=== PATIENT | female | born 1945 | race Caucasian/White ===

== ENCOUNTER 2020-01-08 11:20 | Outpatient (CLI) | payer MEDICARE, SELFPAY ==
--- NOTE | ~2020-01-08 | MMUS_ITS ---
EXAMINATION: MM screen RT diag LT w mauro, US breast LT limited HISTORY: Palpable left breast mass TECHNIQUE: Digital screening right mammogram. Additional 3-D tomosynthesis images of the left breast were performed and synthetic 2-D images were generated. CAD analysis was submitted and interpreted. H igh resolution left breast ultrasound was performed. COMPARISON: Comparison to multiple prior studies sequentially, with oldest reviewed study dated 12/03. FINDINGS: MAMMOGRAPHIC FINDINGS: Breast composed of scattered areas of fibroglandular density. There are no suspicious masses, calcifi cations or architectural distortion to suggest malignancy. ULTRASOUND: Normal heterogeneous echotexture of the left breast without focal solid or cystic mass. IMPRESSION: 1. No mammographic or sonographic evidence for malignancy. 2. Routine yearly screening mammogram and regular clinical breast examination are recommended. BI-RADS Category 1: Negative Reviewed, dictated and finalized at location A. CH ENGINE OPTIMIZATION CONSULTANT IMPRESSION: 1. No mammographic or sonographic evidence for malignancy. 2. Routine yearly screening mammogram and regular clinical breast examination a re recommended. BI-RADS Category 1: Negative
== END 2020-01-08 11:21 | disposition home or self-care (01) ==
PROVIDERS: PCP Internal Medicine; Visit Provider Nurse Practitioner Family
DX: Z12.31 Encounter for screening mammogram for malignant neoplasm of breast (principal); N63.42 Unspecified lump in left breast, subareolar
CPT/HCPCS: 76642; 77063; 77065; 77067

== ENCOUNTER 2020-01-09 17:04 | Outpatient (CLI) | payer MEDICARE, SELFPAY ==
[2020-01-09 17:16] LABS: Basophils Absolute Auto 0.02 K/mm3 (0.00-0.10); Basophils Percent Auto 0.3 % (0.0-1.0); Eosinophils Absolute Auto 0.09 K/mm3 (0.02-0.50); Eosinophils Percent Auto 1.3 % (1.0-6.0); Hematocrit 43.4 % (35.0-42.0); Hemoglobin 14.4 g/dL (11.7-13.8); Immature Granulocyte Absolute 0.02 K/mm3 (0.00-0.00); Immature Granulocyte Percent A 0.3 % (0.0-0.0); Lymphocytes Absolute Auto 2.57 K/mm3 (1.10-4.50); Lymphocytes Percent Auto 37.4 % (18.0-42.0); Mean Corpuscular HGB Conc 33.2 g/dL (32.0-36.0); Mean Corpuscular Hemoglobin 32.2 pg (27.0-31.0); Mean Corpuscular Volume 97.1 fL (78.0-102.0); Mean Platelet Volume 10.2 fl (9.2-11.8); Monocytes Absolute Auto 0.57 K/mm3 (0.10-0.90); Monocytes Percent Auto 8.3 % (2.0-11.0); Neutrophils Absolute Auto 3.6 K/mm3 (1.7-7.2); Neutrophils Percent Auto 52.4 % (50.0-70.0); Platelet Count Result 301 K/mm3 (150-420); Red Blood Count 4.47 M/mm3 (4.20-5.40); Red Cell Distribution Width 12.7 % (11.6-14.4); White Blood Count 6.9 K/mm3 (4.8-10.8)
[2020-01-09 17:55] LABS: Alanine Aminotransferase 24 U/L (14-59); Albumin Level 3.9 g/dL (3.4-5.0); Alkaline Phosphatase 76 U/L (46-116); Amylase 42 U/L (25-115); Anion Gap 14.6 mmol/L (7-16); Aspartate Amino Transferase 15 U/L (15-37); Bilirubin,Total 0.2 mg/dL (0.00-1.00); Blood Urea Nitrogen 16 mg/dL (7-18); Calcium 9.2 mg/dL (8.5-10.1); Carbon Dioxide 29 mmol/L (21-32); Chloride 105 mmol/L (98-108); Estimated Glomerular Filt Rate 58; Glucose 99 mg/dL (70-99); Lipase 108 U/L (73-393); Osmolality Calculated 299 mOsm/kg (285-295); Potassium 4.6 mmol/L (3.5-5.1); Sodium 144 mmol/L (136-145); Total Protein 7.3 g/dL (6.4-8.2)
== END 2020-01-09 17:05 | disposition home or self-care (01) ==
PROVIDERS: PCP Internal Medicine; Visit Provider Internal Medicine
DX: R10.13 Epigastric pain (principal)
CPT/HCPCS: 36415; 80053; 82150; 83690; 85025

== ENCOUNTER 2020-01-14 07:48 | Outpatient (CLI) | payer MEDICARE, SELFPAY ==
--- NOTE | ~2020-01-14 | US_ITS ---
US right upper quadrant INDICATION: Right upper quadrant pain. Previous cholecystectomy. PROCEDURE: Realtime right upper abdominal ultrasound. COMPARISON: CT dated 06/07/2013 FINDINGS: Evaluation of pancreas limited by bowel gas. No gross pancreatic masses. Liver echotexture is increased and heterogeneous consistent with fatty infiltration. No discrete mass identified. No s ignificant biliary dilatation. There is normal directional flow in the portal vein. Gallbladder is surgically absent. Common bile duct measures 6 mm. IMPRESSION: 1: Hepatic steatosis. Reviewed, dictated and finalized at location B. R OPERATOR IMPRESSION: 1: Hepatic steatosis.
== END 2020-01-14 07:49 | disposition home or self-care (01) ==
PROVIDERS: PCP Internal Medicine; Visit Provider Internal Medicine
DX: R10.11 Right upper quadrant pain (principal)
CPT/HCPCS: 76705

== ENCOUNTER 2020-04-08 07:42 | Outpatient (CLI) | payer MEDICARE, SELFPAY ==
[2020-04-08 07:56] LABS: Basophils Absolute Auto 0.03 K/mm3 (0.00-0.10); Basophils Percent Auto 0.5 % (0.0-1.0); Eosinophils Absolute Auto 0.12 K/mm3 (0.02-0.50); Eosinophils Percent Auto 2.1 % (1.0-6.0); Hemoglobin 13.6 g/dL (11.7-13.8); Immature Granulocyte Absolute 0.01 K/mm3 (0.00-0.00); Immature Granulocyte Percent A 0.2 % (0.0-0.0); Lymphocytes Absolute Auto 1.93 K/mm3 (1.10-4.50); Lymphocytes Percent Auto 33.7 % (18.0-42.0); Mean Corpuscular HGB Conc 32.4 g/dL (32.0-36.0); Mean Corpuscular Hemoglobin 31.7 pg (27.0-31.0); Mean Corpuscular Volume 97.9 fL (78.0-102.0); Monocytes Absolute Auto 0.49 K/mm3 (0.10-0.90); Monocytes Percent Auto 8.6 % (2.0-11.0); Neutrophils Absolute Auto 3.1 K/mm3 (1.7-7.2); Neutrophils Percent Auto 54.9 % (50.0-70.0); Platelet Count Result 289 K/mm3 (150-420); Red Blood Count 4.29 M/mm3 (4.20-5.40); Red Cell Distribution Width 12.5 % (11.6-14.4); White Blood Count 5.7 K/mm3 (4.8-10.8)
[2020-04-08 07:57] LABS: Add Urine Microscopic? YES; Appearance Urine Clear (Clear); Bilirubin Urine Negative (Negative); Blood Urine Negative (Negative); Color Urine Yellow (Yellow); Glucose Urine UA Negative (Negative); Ketones Urine Negative (Negative); Leukocyte Esterase Ur Trace (Negative); Nitrate Urine Negative (Negative); Protein Urine Negative (Negative); Specific Grav Ur 1.015 (1.010-1.020); Urobilinogen Urine 0.2 mg/dL (0.2-1.0)
[2020-04-08 08:05] LABS: Hemoglobin A1C 5.4 % (<5.7)
[2020-04-08 08:11] LABS: Creatinine Urine 50.05 mg/dL (40-278); MALB Creatinine Ratio 8.3 mg/g (0-30); Microalbumin Urine Random 4.2 mg/L
[2020-04-08 08:22] LABS: Bacteria Urine Trace /hpf; RBC Urine 0-2 /hpf (0-2); Squamous Epithelial Cell Urine Moderate /hpf (Few); WBC Urine 0-3 /hpf (0-3)
[2020-04-08 09:07] LABS: Alanine Aminotransferase 22 U/L (14-59); Albumin Level 3.4 g/dL (3.4-5.0); Alkaline Phosphatase 58 U/L (46-116); Anion Gap 11.2 mmol/L (7-16); Aspartate Amino Transferase 17 U/L (15-37); Bilirubin,Total 0.3 mg/dL (0.00-1.00); Blood Urea Nitrogen 15 mg/dL (7-18); Calcium 8.8 mg/dL (8.5-10.1); Carbon Dioxide 32 mmol/L (21-32); Chloride 105 mmol/L (98-108); Cholesterol 161 mg/dL (0-200); Creatine Kinase 75 U/L (26-192); Estimated Glomerular Filt Rate > 60; Free T3 2.32 pg/mL (2.18-3.98); Free T4 Free Thyroxine 1.24 ng/dL (0.76-1.46); Glucose 86 mg/dL (70-99); HDL Direct 63 mg/dL (40-60); LDL Cholesterol Calculated 79 mg/dL (<130); Osmolality Calculated 297 mOsm/kg (285-295); Potassium 4.2 mmol/L (3.5-5.1); Sodium 144 mmol/L (136-145); Thyroid Stimulating Hormone 1.42 uIU/mL (0.36-3.74); Total Protein 6.5 g/dL (6.4-8.2); Triglycerides 96 mg/dL (0-150)
[2020-04-09 16:02] LABS: Vitamin B12 189 pg/mL (193-986)
[2020-04-12 10:27] LABS: Vitamin D 25 Hydroxy 35 ng/mL (30-100)
== END 2020-04-08 07:43 | disposition home or self-care (01) ==
PROVIDERS: PCP Internal Medicine; Visit Provider Internal Medicine
DX: E78.2 Mixed hyperlipidemia (principal); E03.4 Atrophy of thyroid (acquired); I10 Essential (primary) hypertension; M81.0 Age-related osteoporosis without current pathological fracture; R73.01 Impaired fasting glucose; E53.8 Deficiency of other specified B group vitamins
CPT/HCPCS: 36415; 80053; 80061; 81001; 82043; 82306; 82550; 82607; 83036; 84439; 84443; 84481; 85025

== ENCOUNTER 2020-04-09 11:07 | Outpatient (RCR) | payer MEDICARE, SELFPAY ==
--- NOTE | 2020-04-09 11:39 | PTOPEVAL ---
Thank you for referring Betzy Juarez to [facility]. Please review, sign, date and return this plan of care VERN. I agree with and certify that the following plan of care is medically necessary. Referring Physician Date Admitting Provider: Attending Provider: Janeth Viramontes MD Referring Provider: *PT Outpatient Evaluation Start: 04/09/20 11:08 Freq: Status: Active Protocol: Document 04/09/20 11:08 ESTEBAN (Rec: 04/09/20 11:38 ESTEBAN [id number]) Therapy Assessment Status Assessment Status Assessment Status Evaluation Evaluation Information Problem Diagnosis imbalance, unsteady gait, fall Onset 04/08/20 Subjective Information Pt. reports that she has been Query Text:As Reported By Patient/ falling frequently over the Family past few months. She reports that when getting out of a chair or bending forward causes her to fall. She reports that she is using no AD at home. She reports that she enjoys gardening, but states that she fell in her garden yesterday while attempting to bend forward. She reports that her goal is to be able to stand or bend over and not feel that she will fall. Prior Level of Function Activity Level (Last 3 Months) Occupation retired Hand Dominance Right Activity of Daily Living Ability Independent Indoor/Home Mobility Independent Community Mobility Independent Stairs Ability Independent Functional Cognition (Planning, Shopping Independent , Taking Medications) Cooking Yes Cleaning Yes Laundry Yes Shopping Yes Driving Yes Pain Assessment Self Report Self Report Pain Level 0 Pain Score Pain Score 0: Self Report Lower Extremity Muscle Strength Testing General Lower Extremity Strength Gross Lower Extremity Strength bilateral hip flexion 4/5, bilateral hip extension 4-/5, bilateral knee flexion 4/5, bilateral knee extension 4+/5, bilateral ankle dorsiflexion 4+/5 Balance Assessment Tinetti Balance Assessment Sitting Balance Steady, safe Ability to Arise
[2020-04-12 17:52] LABS: Intrinsic Factor Blocking Ab Negative (Negative)
[2020-04-12 19:44] LABS: Homocysteine 9.1 umol/L (<10.4)
[2020-04-16 23:34] LABS: Methylmalonic Acid 282 nmol/L (87-318)
== END 2020-07-08 23:59 | disposition home or self-care (01) ==
LOC: CHSPT 11:07
PROVIDERS: PCP Internal Medicine; Visit Provider Internal Medicine
DX: R26.81 Unsteadiness on feet (principal); E53.8 Deficiency of other specified B group vitamins
CPT/HCPCS: 36415; 83090; 83921; 86340; 97110; 97112; 97161

== ENCOUNTER 2020-04-12 09:25 | Outpatient (CLI) | payer MEDICARE, SELFPAY ==
--- NOTE | ~2020-04-12 | MR_ITS ---
EXAMINATION: MR brain/brain stem wo con DATE: 04/12/2020 10:37 INDICATION: Dizziness. TECHNIQUE: Magnetic resonance imaging (MRI) of the brain and brainstem was performed without intraven ous contrast. Sequences included sagittal and axial T1-weighted FSE, axial diffusion-weighted FS EPI, axial T2*-weighted GRE, axial T2-weighted FLAIR Propeller, axial T2-weighted Propeller, small field- of-view coronal FIESTA, small [id number] coronal T1-weighted FSE, and small [id number] axial T1 -weighted SPGR. Apparent diffusion coefficient (ADC) maps were created. COMPARISON: Brain MRI 10/06/2016 FINDINGS: There is no intracranial hemorrhage, acute infarction, or abnormal intracranial mass lesion . The ventricles are normal in size. There are likely changes of ocular lens replacement surgeries. T he paranasal sinuses are clear. The mastoid air cells are normal. IMPRESSION: 1. Normal brain. Reviewed, dictated and finalized at location A. IMPRESSION: 1. Normal brain.
== END 2020-04-12 09:26 | disposition home or self-care (01) ==
LOC: CHSIMG 09:28
PROVIDERS: PCP Internal Medicine; Visit Provider Internal Medicine
DX: R42 Dizziness and giddiness (principal)
CPT/HCPCS: 70551

== ENCOUNTER 2020-05-09 16:21 | Emergency (ER) | payer MEDICARE, SELFPAY ==
--- NOTE | ~2020-05-09 | XR_ITS ---
XR foot LT min 3V DATE: 05/09/2020 16:56 INDICATION: Heavy object fell on foot; anterior arch pain TECHNIQUE: 4 views COMPARISON: None FINDINGS: There is mild plantar calcaneal enthesopathy. Diffuse osteopenia. No fracture, dislocation, periosteal reaction or bone destruction is detected. IMPRESSION: No detectable fracture or dislocation Reviewed, dictated and finalized at location A.
--- NOTE | ~2020-05-09 | CT_ITS ---
EXAMINATION: CT foot LT wo con DATE: 05/09/2020 17:57 INDICATION: Left foot pain TECHNIQUE: Computed tomography (CT) of the left foot was performed without intravenous contrast. The dose-length product (DLP) was 903.13 mGy-cm. Automated exposure control and iterative reconstruction technique were employed. COMPARISON: None FINDINGS: There is no fracture, dislocation, or subluxation. There is mild polyarticular osteoarthrit is, worst at the calcaneal cuboid joint. Bone alignment is normal. There is mild dorsal soft tissue s welling of the foot. IMPRESSION: 1. No acute osseous abnormality. Reviewed, dictated and finalized at location A.
[2020-05-09 16:25] VITALS: BP 128/78; PULSE 73; RESP 18; TEMP 36.4; O2SAT 98
--- NOTE | 2020-05-09 16:45 | ED.LOWEXIN ---
HPI - Extremity Injury (Lower) General Chief Complaint: Extremity Injury, Lower Stated Complaint: l foot pain Time Seen by Provider: 05/09/20 16:45 Source: patient Mode of arrival: ambulatory Limitations: no limitations History of Present Illness HPI Narrative: 74-year-old woman comes in today complaining of right midfoot pain on the dorsal aspect that started this morning after she dropped a 2 x 12 on it. She states that she has partial weight-bearing and painful weight-bearing. She denies any numbness or tingling or prior foot injuries. MD complaint: foot injury Onset (ago): hour(s) (6) Injury: Left: foot Type of Injury: blunt Place: home Severity: moderate Relieving factors: rest Exacerbating factors: weight bearing, movement and palpation Associated symptoms: swelling and able to partially bear weight Treatments prior to arrival: cold therapy and other ( Elevation) Related Data Home Medications Medication Instructions Recorded Confirmed amlodipine 10 mg tablet 10 mg PO DAILY 10/26/19 05/09/20 aspirin 81 mg tablet,delayed 81 mg PO DAILY 10/26/19 05/09/20 release atenolol 25 mg tablet 12.5 mg PO DAILY 10/26/19 05/09/20 calcium carbonate 600 mg calcium 600 mg PO DAILY 10/26/19 05/09/20 (1,500 mg) tablet famotidine 20 mg tablet 20 mg PO DAILY 10/26/19 05/09/20 fluticasone propionate 50 2 inhalation INHALATION Q12H 10/26/19 05/09/20 mcg/actuation blister powder for inhalation furosemide 40 mg tablet 40 mg PO DAILY 10/26/19 05/09/20 ipratropium bromide 42 mcg (0.06 2 spray NASAL TID 10/26/19 05/09/20 %) nasal spray isosorbide mononitrate 60 mg 90 mg PO DAILY 10/26/19 05/09/20 tablet,extended release 24 hr levothyroxine 200 mcg tablet 200 mcg PO DAILY 10/26/19 05/09/20 lisinopril 10 mg tablet 10 mg PO DAILY 10/26/19 05/09/20 pantoprazole 40 mg tablet,delayed 40 mg PO QAM 10/26/19 05/09/20 release paroxetine HCl 20 mg tablet 40 mg PO DAILY 10/26/19 05/09/20 pravastatin 40 mg tablet 40 mg PO DAILY 10/26/19 05/09/20 ranolazine 1,000 mg 1,000 mg PO Q12H 10/26/19 05/09/20 tablet,extended release,12 hr tramadol 50 mg tablet 50 mg PO Q6H PRN 10/26/19 05/09/20 Allergies Allergy/AdvReac Type Severity Reaction Status Date / Time bacitracin Allergy Intermediate RASH Verified 05/09/20 16:56 adhesive tape Allergy Mild rash Verified 05/09/20 16:57 latex Allergy Mild RASH WITH Verified 05/09/20 16:57 BLISTERS neomycin Allergy Numbness Verified 05/09/20 16:57 [From Neosporin ([id number])] polymyxin B Allergy Numbness Verified 05/09/20 16:57 [From Neosporin ([id number])] Review of Systems Constitutional: Constitutional: Denies chills and Denies fever(s) Cardiovascular: Cardiovascular: Denies chest pain and Denies radiating jaw, neck or arm pain Respiratory: Respiratory: Denies cough and Denies dyspnea Gastrointestinal: Gastrointestinal: Denies abdominal pain, Denies nausea and Denies vomiting Musculoskeletal: Musculoskeletal: Reports as per HPI, Reports arthralgias and Reports joint swelling Integumentary/Breasts: Skin/Breast: Denies pruritus, Denies rash and Denies skin ulcer Neurologic: Denies vertigo, Denies dizziness and Denies syncope Hematologic/Lymphatic: Hematologic/Lymphatic: Denies easy bleeding and Denies easy bruising Allergic/Immunologic: Allergic/Immunologic: Denies lip swelling and Denies wheezing [facility] Past Medical History Medical History (Updated 05/09/20 @ 18:31 by Gaudencio Chauhan MD) Angina pectoris GERD (gastroesophageal reflux disease) High cholesterol HTN (hypertension) Thyroid disease Surgical History Surgical History H/O colonoscopy H/O total hysterectomy History of back surgery History of cataract surgery History of ERCP History of total knee replacement Hx laparoscopic cholecystectomy Social History Social History
[2020-05-09 18:37] VITALS: BP 139/82; PULSE 72; RESP 18; O2SAT 98
== END 2020-05-09 18:38 | disposition home or self-care (01) ==
PROVIDERS: Emergency Provider Emergency Medicine; PCP Internal Medicine
DX: S90.32XA Contusion of left foot, initial encounter (principal); W22.8XXA Striking against or struck by other objects, initial encounter
CPT/HCPCS: 73630; 73700; 99282; 99284

== ENCOUNTER 2020-05-19 15:38 | Outpatient (CLI) | payer MEDICARE, SELFPAY ==
--- NOTE | ~2020-05-19 | XR_ITS ---
XR knee RT min 4V 05/19/2020 16:41 Indication: Right knee pain Procedure: 4 views right knee Comparison: Comparison to multiple prior studies sequentially, with oldest reviewed study dated 02/28. Findings: Moderate-severe osteoarthritis of the right knee. Small joint effusion. No acute fracture o r traumatic malalignment. No foreign bodies. No focal soft tissue abnormality. Impression: 1: Stable moderate-severe osteoarthritis of the right hip. Reviewed, dictated and finalized at location A. Impression: 1: Stable moderate-severe osteoarthritis of the right hip.
== END 2020-05-19 15:39 | disposition home or self-care (01) ==
LOC: CHSIMG 15:40
PROVIDERS: PCP Internal Medicine; Visit Provider Internal Medicine
DX: M25.561 Pain in right knee (principal)
CPT/HCPCS: 73564

== ENCOUNTER 2020-05-30 09:33 | Outpatient (CLI) | payer MEDICARE, SELFPAY ==
[2020-05-30 11:25] LABS: Vitamin B12 984 pg/mL (193-986)
== END 2020-05-30 09:34 | disposition home or self-care (01) ==
LOC: CHSLAB 09:35
PROVIDERS: PCP Internal Medicine; Visit Provider Internal Medicine
DX: D51.9 Vitamin B12 deficiency anemia, unspecified (principal)
CPT/HCPCS: 36415; 82607

== ENCOUNTER 2020-09-03 09:59 | Outpatient (CLI) | payer MEDICARE, SELFPAY ==
[2020-09-03 11:42] LABS: Vitamin B12 996 pg/mL (193-986)
== END 2020-09-03 10:00 | disposition home or self-care (01) ==
LOC: CHSLAB 10:01
PROVIDERS: PCP Internal Medicine; Visit Provider Internal Medicine
DX: D51.9 Vitamin B12 deficiency anemia, unspecified (principal)
CPT/HCPCS: 36415; 82607

== ENCOUNTER 2020-10-06 08:58 | Outpatient (CLI) | payer MEDICARE, SELFPAY ==
[2020-10-06 09:20] LABS: Basophils Absolute Auto 0.02 K/mm3 (0.00-0.10); Basophils Percent Auto 0.4 % (0.0-1.0); Eosinophils Absolute Auto 0.04 K/mm3 (0.02-0.50); Eosinophils Percent Auto 0.8 % (1.0-6.0); Hematocrit 43.6 % (35.0-42.0); Hemoglobin 14.3 g/dL (11.7-13.8); Immature Granulocyte Absolute 0.02 K/mm3 (0.00-0.00); Immature Granulocyte Percent A 0.4 % (0.0-0.0); Lymphocytes Absolute Auto 1.84 K/mm3 (1.10-4.50); Lymphocytes Percent Auto 34.8 % (18.0-42.0); Mean Corpuscular HGB Conc 32.8 g/dL (32.0-36.0); Mean Corpuscular Hemoglobin 32.9 pg (27.0-31.0); Mean Corpuscular Volume 100.5 fL (78.0-102.0); Mean Platelet Volume 10.1 fl (9.2-11.8); Monocytes Absolute Auto 0.42 K/mm3 (0.10-0.90); Neutrophils Absolute Auto 2.9 K/mm3 (1.7-7.2); Neutrophils Percent Auto 55.6 % (50.0-70.0); Platelet Count Result 283 K/mm3 (150-420); Red Blood Count 4.34 M/mm3 (4.20-5.40); Red Cell Distribution Width 12.2 % (11.6-14.4); White Blood Count 5.3 K/mm3 (4.8-10.8)
[2020-10-06 09:21] LABS: Add Urine Microscopic? YES; Appearance Urine Clear (Clear); Bilirubin Urine Negative (Negative); Blood Urine Negative (Negative); Color Urine Yellow (Yellow); Glucose Urine UA Negative (Negative); Ketones Urine Negative (Negative); Leukocyte Esterase Ur Trace (Negative); Nitrate Urine Negative (Negative); Protein Urine Negative (Negative); Urobilinogen Urine 0.2 mg/dL (0.2-1.0)
[2020-10-06 09:30] LABS: Bacteria Urine None seen /hpf; RBC Urine 0-2 /hpf (0-2); Squamous Epithelial Cell Urine Few /hpf (Few); WBC Urine 0-3 /hpf (0-3)
[2020-10-06 09:40] LABS: BNP 19.2 pg/mL (0-100)
[2020-10-06 09:48] LABS: Hemoglobin A1C 5.1 % (<5.7)
[2020-10-06 10:02] LABS: Alanine Aminotransferase 32 U/L (14-59); Albumin Level 3.8 g/dL (3.4-5.0); Alkaline Phosphatase 73 U/L (46-116); Anion Gap 8 mmol/L (8-16); Aspartate Amino Transferase 13 U/L (15-37); Bilirubin,Total 0.3 mg/dL (0.00-1.00); Blood Urea Nitrogen 13 mg/dL (7-18); Calcium 9.2 mg/dL (8.5-10.1); Carbon Dioxide 31 mmol/L (21-32); Chloride 103 mmol/L (98-108); Cholesterol 190 mg/dL (0-200); Creatine Kinase 43 U/L (26-192); Estimated Glomerular Filt Rate > 60; Free T4 Free Thyroxine 1.19 ng/dL (0.76-1.46); Glucose 94 mg/dL (70-99); HDL Direct 84 mg/dL (40-60); LDL Cholesterol Calculated 90 mg/dL (<130); Osmolality Calculated 294 mOsm/kg (285-295); Potassium 4.1 mmol/L (3.5-5.1); Sodium 142 mmol/L (136-145); Thyroid Stimulating Hormone 0.42 uIU/mL (0.36-3.74); Total Protein 6.9 g/dL (6.4-8.2); Triglycerides 78 mg/dL (0-150)
[2020-10-09 09:40] LABS: Vitamin D 25 Hydroxy 32 ng/mL (30-100)
== END 2020-10-06 08:59 | disposition home or self-care (01) ==
LOC: CHSLAB 09:03
PROVIDERS: PCP Internal Medicine; Visit Provider Internal Medicine
DX: E03.4 Atrophy of thyroid (acquired) (principal); I10 Essential (primary) hypertension; E78.2 Mixed hyperlipidemia; R73.01 Impaired fasting glucose; M81.0 Age-related osteoporosis without current pathological fracture; I50.9 Heart failure, unspecified
CPT/HCPCS: 36415; 80053; 80061; 81001; 82306; 82550; 83036; 83880; 84439; 84443; 85025

== ENCOUNTER 2020-12-05 13:41 | Outpatient (CLI) | payer MEDICARE, SELFPAY ==
--- NOTE | ~2020-12-05 | XR_ITS ---
EXAMINATION: XR chest 2V DATE: 12/05/2020 15:46 INDICATION: Hypertension. Preop. TECHNIQUE: Frontal and lateral views of the chest were obtained. COMPARISON: Chest 2 views 08/15/2019 FINDINGS: The chest demonstrates clear lungs without pneumonia, pleural effusion, or pneumothorax. Th e heart size is normal. Surgical clips in the right upper quadrant are likely from cholecystectomy. IMPRESSION: 1. No acute cardiopulmonary disease. Reviewed, dictated and finalized at location B. [facility]
[2020-12-05 16:15] LABS: Basophils Percent Auto 0.4 % (0.2-1.2); Eosinophils Absolute Auto 0.1 K/mm3 (0-0.3); Eosinophils Percent Auto 0.7 % (0-4.4); Hematocrit 43.6 % (37.0-47.0); Hemoglobin 14.2 g/dL (12.0-15.0); Immature Granulocyte Absolute 0.02 K/mm3 (0.00-0.031); Immature Granulocyte Percent A 0.3 % (0-0.5); Lymphocytes Absolute Auto 2.06 K/mm3 (0.9-3.2); Lymphocytes Percent Auto 29.4 % (18.3-44.2); Mean Corpuscular HGB Conc 32.6 g/dl (32-36); Mean Corpuscular Hemoglobin 32.6 pg (26-34); Mean Platelet Volume 10.4 fl (7.4-10.4); Monocytes Absolute Auto 0.7 K/mm3 (0.1-0.6); Monocytes Percent Auto 9.8 % (2.6-8.5); Neutrophils Absolute Auto 4.2 K/mm3 (1.3-6.7); Neutrophils Percent Auto 59.4 % (45.5-73.1); Platelet Count Result 298 k/mm3 (150-375); Red Blood Count 4.36 M/mm3 (4.2-5.4); Red Cell Distribution Width 12.3 % (11.5-14.5)
[2020-12-05 16:24] LABS: Urine Cotinine NEGATIVE
[2020-12-05 16:26] LABS: Albumin Level 4.3 g/dL (3.5-5.1); Anion Gap 5 mmol/L (8-16); Blood Urea Nitrogen 17 mg/dL (7-17); Calcium 9.4 mg/dL (8.4-10.2); Carbon Dioxide 34 mmol/L (22-30); Chloride 101 mmol/L (98-107); Estimated Glomerular Filt Rate > 60; Glucose 99 mg/dL (65-105); Potassium 4.3 mmol/L (3.4-5.0); Sodium 140 mmol/L (137-145)
== END 2020-12-05 13:42 | disposition home or self-care (01) ==
LOC: ANHSURGERY 13:47
PROVIDERS: PCP Internal Medicine; Visit Provider Orthopaedic Surgery
DX: M17.11 Unilateral primary osteoarthritis, right knee (principal); Z01.818 Encounter for other preprocedural examination
CPT/HCPCS: 71046; 80048; 80307; 82040; 83036; 85025; 86850; 86900; 86901; 87070; 87077; 87186

== ENCOUNTER 2020-12-12 00:25 | Outpatient (CLI) | payer MEDICARE, SELFPAY ==
[2020-12-12 19:17] LABS: SARS-CoV-2 RNA PCR Negative
== END 2020-12-12 00:26 | disposition home or self-care (01) ==
LOC: ANHCOVIDDT 00:25
PROVIDERS: PCP Internal Medicine; Visit Provider Orthopaedic Surgery
DX: Z01.812 Encounter for preprocedural laboratory examination (principal); Z20.822 Contact with and (suspected) exposure to COVID-19
CPT/HCPCS: C9803; U0003; U0005

== ENCOUNTER 2020-12-15 01:28 | Day surgery (SDC) | payer MEDICARE, SELFPAY ==
[2020-12-05 14:37] VITALS: BP 157/81; PULSE 73; RESP 16; TEMP 36.9; O2SAT 98; BMI 32.7
--- NOTE | 2020-12-12 11:11 | PM.IMHP ---
H&P: HPI History of Present Illness Date/Time: 12/12/20 11:11 <ROSALIA Monreal - Last Filed: 12/12/20 11:20> Chief Complaint: Right knee DJD <ROSALIA Monreal - Last Filed: 12/12/20 11:20> Narrative: Betzy Juarez is a 75 year old female patient of Dr. Viramontes who presents today for a right total knee arthroplasty. She had her left knee replaced in [address] Pritchard. It is doing very well for her. She has severe medial compartment arthritis in the right knee that is very symptomatic for her on a daily basis. She is miserable dealing with the pain and feels this point she is ready to proceed with total knee arthroplasty rather than continue any nonsurgical treatments. <ROSALIA Monreal - Last Filed: 12/12/20 11:20> Review of Systems Review of Systems: All systems reviewed & are unremarkable except as noted in HPI and below <ROSALIA Monreal - Last Filed: 12/12/20 11:20> [facility] Past Medical History Medical History: Medical History Angina pectoris GERD (gastroesophageal reflux disease) High cholesterol HTN (hypertension) Thyroid disease <ROSALIA Monreal - Last Filed: 12/12/20 11:20> Surgical History Surgical History: Surgical History H/O colonoscopy H/O total hysterectomy History of back surgery History of cataract surgery History of ERCP History of total knee replacement Hx laparoscopic cholecystectomy <ROSALIA Monreal - Last Filed: 12/12/20 11:20> Family History Family History: Family History Father COPD (chronic obstructive pulmonary disease) Heart disease Mother Heart disease Other Diabetes mellitus Cancer Cerebrovascular accident Sibling Heart disease Unknown Diabetes mellitus Heart disease Cancer Cerebrovascular accident Hypertension Kidney disease <ROSALIA Monreal - Last Filed: 12/12/20 11:20> Social History Social History: Social History Smoking status: Never smoker Alcohol intake: current Substance use: never Living arrangements: with family Spiritual care concerns: No <ROSALIA Monreal - Last Filed: 12/12/20 11:20> Meds Home Medications and Allergies Home medications: Home Medications Medication Instructions Recorded Confirmed Type amlodipine 10 mg tablet 10 mg PO QAM 10/26/19 12/15/20 History aspirin 81 mg tablet,delayed 81 mg PO DAILY 10/26/19 12/15/20 History release atenolol 25 mg tablet 12.5 mg PO QAM 10/26/19 12/15/20 History calcium carbonate 600 mg calcium 600 mg PO DAILY 10/26/19 12/15/20 History (1,500 mg) tablet famotidine 20 mg tablet 20 mg PO DAILY 10/26/19 12/15/20 History fluticasone propionate 50 2 inhalation INHALATION HS PRN 10/26/19 12/15/20 History mcg/actuation blister powder for inhalation furosemide 40 mg tablet 40 mg PO QAM 10/26/19 12/15/20 History ipratropium bromide 42 mcg (0.06 2 spray NASAL BID PRN 10/26/19 12/05/20 History %) nasal spray levothyroxine 200 mcg tablet 200 mcg PO QAM 10/26/19 12/15/20 History lisinopril 10 mg tablet 10 mg PO DAILY 10/26/19 12/15/20 History pantoprazole 40 mg tablet,delayed 40 mg PO QAM 10/26/19 12/15/20 History release paroxetine HCl 20 mg tablet 40 mg PO QAM 10/26/19 12/15/20 History pravastatin 40 mg tablet 40 mg PO HS 10/26/19 12/15/20 History ranolazine 1,000 mg 1,000 mg PO Q12H 10/26/19 12/15/20 History tablet,extended release,12 hr tramadol 50 mg tablet 50 mg PO Q6H PRN 10/26/19 12/05/20 History crutch #2 each 05/09/20 Rx acetaminophen 500 mg PO Q6H PRN 12/05/20 12/05/20 History cyanocobalamin (vitamin B-12) 500 mcg PO DAILY 12/05/20 12/15/20 History [Vitamin B-12] isosorbide mononitrate 90 mg PO QAM 12/05/20 12/15/20 History <ROSALIA Monreal - Last Filed: 12/12/20 11:20> Allergies/Ad
--- NOTE | 2020-12-12 14:04 | WPDANESEPPF ---
Anes - Initial Pre Proc Eval Procedure: Operation Date: 12/15/20 07:30 Proposed Procedures p Right Total Knee Arthroplasty - Aydin Pritchard MD Date/Time: 12/12/20 14:04 Surgeon: Aydin Pritchard MD Pre Op Diagnosis: Right Knee OA Patient Data Age: 75 Gender: F Height: 5 ft 6 in Weight: 92 kg Last Vital Signs Temp 98.4 F 12/05/20 14:37 Pulse 73 12/05/20 14:37 Resp 16 12/05/20 14:37 BP 157/81 H 12/05/20 14:37 Pulse Ox 98 12/05/20 14:37 Allergies Allergy/AdvReac Type Severity Reaction Status Date / Time bacitracin Allergy Intermediate RASH Verified 12/05/20 14:07 adhesive tape Allergy Mild rash Verified 12/05/20 14:07 latex Allergy Mild RASH WITH Verified 12/05/20 14:07 BLISTERS neomycin Allergy redness/irr Verified 12/05/20 14:07 [From Neosporin itation ([id number])] polymyxin B Allergy redness/irr Verified 12/05/20 14:07 [From Neosporin iation ([id number])] Home Medications Medication Instructions Recorded Confirmed Type amlodipine 10 mg tablet 10 mg PO QAM 10/26/19 12/05/20 History aspirin 81 mg tablet,delayed 81 mg PO DAILY 10/26/19 12/05/20 History release atenolol 25 mg tablet 12.5 mg PO QAM 10/26/19 12/05/20 History calcium carbonate 600 mg calcium 600 mg PO DAILY 10/26/19 12/05/20 History (1,500 mg) tablet famotidine 20 mg tablet 20 mg PO DAILY 10/26/19 12/05/20 History fluticasone propionate 50 2 inhalation INHALATION HS PRN 10/26/19 12/05/20 History mcg/actuation blister powder for inhalation furosemide 40 mg tablet 40 mg PO QAM 10/26/19 12/05/20 History ipratropium bromide 42 mcg (0.06 2 spray NASAL BID PRN 10/26/19 12/05/20 History %) nasal spray levothyroxine 200 mcg tablet 200 mcg PO QAM 10/26/19 12/05/20 History lisinopril 10 mg tablet 10 mg PO DAILY 10/26/19 12/05/20 History pantoprazole 40 mg tablet,delayed 40 mg PO QAM 10/26/19 12/05/20 History release paroxetine HCl 20 mg tablet 40 mg PO QAM 10/26/19 12/05/20 History pravastatin 40 mg tablet 40 mg PO HS 10/26/19 12/05/20 History ranolazine 1,000 mg 1,000 mg PO Q12H 10/26/19 12/05/20 History tablet,extended release,12 hr tramadol 50 mg tablet 50 mg PO Q6H PRN 10/26/19 12/05/20 History crutch #2 each 05/09/20 Rx acetaminophen 500 mg PO Q6H PRN 12/05/20 12/05/20 History cyanocobalamin (vitamin B-12) 500 mcg PO DAILY 12/05/20 12/05/20 History [Vitamin B-12] isosorbide mononitrate 90 mg PO QAM 12/05/20 12/05/20 History Patient hx anesthesia problems: none Family hx anesthesia problems: none PMFSH Past Medical History Medical History Angina pectoris GERD (gastroesophageal reflux disease) High cholesterol HTN (hypertension) Thyroid disease Surgical History Surgical History H/O colonoscopy H/O total hysterectomy History of back surgery History of cataract surgery History of ERCP History of total knee replacement Hx laparoscopic cholecystectomy Family History Family History Father COPD (chronic obstructive pulmonary disease) Heart disease Mother Heart disease Other Diabetes mellitus Cancer Cerebrovascular accident Sibling Heart disease Unknown Diabetes mellitus Heart disease Cancer Cerebrovascular accident Hypertension Kidney disease Social History Social History Smoking status: Never smoker Alcohol intake: current Substance use: never Living arrangements: with family Spiritual care concerns: No Anes - Eval Final PreProcedure Day of Procedure 12/12/20 14:04 Patient weight: overweight Heart: regular rate and rhythm Lungs: clear to auscultation Airway: Mallampati scale class II Neurological: alert and oriented Last oral intake: >/= 8 hours ASA classification: III Emergent: no Anesthetic plan: pr
[2020-12-15] VITALS (13 sets, daily range): BP systolic 113–140; BP diastolic 49–60; PULSE 75–98; RESP 12–20; TEMP 36.5–37.4; O2SAT 78–98
--- NOTE | ~2020-12-15 | XR_ITS ---
EXAMINATION: XR knee RT 2V EXAM DATE: 12/15/2020 10:53 INDICATION: Right knee arthroplasty. TECHNIQUE: Portable frontal, crosstable lateral projections right knee obtained immediately followin g arthroplasty. Procedure performed by Aydin Pritchard MD. FINDINGS: Patient is status post total knee arthroplasty. The orthopedic hardware is in expected po sition. There is small amount of subcutaneous gas, gas within the knee joint space. Overlying soft tissue swelling. Correlate with procedure note. IMPRESSION: Status post total right knee arthroplasty. Reviewed, dictated and finalized at location B. [facility] HARVESTER
[2020-12-15] MEDS: ACETAMINOPHEN 500 MG TABLET 1000 MG PO ×2 (06:30→17:38)
[2020-12-15] MEDS: LACTATED RINGERS 1,000 ML 30 ML IV CONT ×2 (06:31→10:46)
[2020-12-15] MEDS: TRANEXAMIC ACID 1,000MG/ISO100 1,000 MG/100 ML BAG 200 MG IVPB (07:00)
--- NOTE | 2020-12-15 07:25 | WPDHPUPDATE1 ---
History and Physical Update Update Date/Time: 12/15/20 07:25 History and Physical has been reviewed, including an updated exam of the patient. There are NO changes in the patient's condition. Risks, benefits, and alternatives have been discussed and questions answered. Patient agrees to proceed with procedure.
[2020-12-15] MEDS: ceFAZolin 2 GM/D5W 50 ML 2 GM/50 ML BAG IVPB (07:33)
[2020-12-15] MEDS: TRANEXAMIC ACID 1,000 MG/10 ML AMPUL 1000 MG IV PUSH (10:05)
[2020-12-15] MEDS: ceFAZolin SODIUM 1 GM VIAL IV PUSH ×2 (10:06)
--- NOTE | 2020-12-15 10:14 | PM.PROC ---
Procedure Note - Detailed Date of procedure: 12/15/20 Pre-op diagnosis: Right Knee OA Post-op diagnosis: same Procedure performed: Right total knee arthroplasty Description of procedure: Patient was brought to the operating room and general anesthesia was administered. The right knee was prepped and draped in usual fashion. She received weight based vancomycin 2 g of Ancef 1 g of tranexamic acid preoperatively. Limb was exsanguinated and tourniquet elevated to 300 mmHg. A 6 in longitudinal midline incision was used and a vastus medialis splitting approach utilized splitting the vastus medialis at the superior pole of patella. Infrapatellar and suprapatellar fat pads were excised and a quadriceps synovectomy carried out. The patella measured 23.5 mm in thickness was cut to 15.5 mm. Protector cap was applied. A guide brandt was inserted down the femoral canal after aspiration of canal contents using the 5 degree valgus cutting bushing 9 mm of bone removed off the distal femur removing equal amounts medially and laterally due to eburnation medially. Next the tibial plateau was cut. We made a skin cut off the tibial plateau. Her where was posteromedial on the tibia with no ACL remaining. The cut was flush with the posterior medial margin of the medial tibial plateau. This removed 9.5 mm from lateral side. Conservative removal of medial tibial and posterior medial tibial osteophyte was performed without performing any significant deep capsular release. Extension gaps were very close to equal in extension. In flexion lateral side except that a 12 mm spacer block the medial side 10 mm. This was after excision of meniscal remnants and recession of the posterior cruciate ligament. The femur was initially cut for a 65 and that would of left most of the anterior flange of the implant floating off the bone and seemed too wide medial to lateral as well. The 62.5 cutting block was applied and AP and chamfer cuts were made the 62.5 fit very well. We noted that she did have a fair amount of posterior wear on the medial femoral condyle. The knee had ample plate to except the not the 10 mm CR spacer flexion. We confirmed the alignment of the tibial cut and the tibia was sized to a vanguard 67 which was set with proper rotation parallel to the anterior surface of the tibial plateau referenced off the medial 1/3 of the tibial tubercle and the alignment of the 2nd metatarsal. The tibia was punched and we trialed with the 10 insert. At 90? of flexion we had too much play both medially and laterally and we lacked extension where it was too tight with no medial or lateral play. Therefore an additional 2 mm of bone removed the distal femur and the chamfer cuts revisited and posterior femoral osteophyte was removed at this time. We did not do a significant posterior capsular release. On trialing this time the knee came out easily to full extension with 1-2 mm of medial and lateral opening in extension with the 11 mm insert an 11 mm insert seemed reasonable at 90? terms of anterior-posterior stability but a little bit applied. Satisfied with this the lug holes were drilled for the femur and the patella was sized to a 34 thin and lug holes drilled. This restored the 23.5 mm thickness to the patella and patellar tracking was reasonable even with the tourniquet up. A step drill was used to make multiple perforations in the dense portions of the tibial plateau and the distal posterior femur and the bony surfaces thoroughly irrigated and dried. Using the methylmethacrylate 1 containing gentamicin powder as we did in 2019, the cement was immediately applied the 67 tibial and 62.5 CR femoral component then cement applied to the tibia pressurized and the 67 fully seated. Cement applied to the femur and the femoral component fully seated the knee brought into extension with 11 mm 5 and 1 insert for pressurization of cement. The 34 x 7.8 mm patellar button was cemented the tourniquet relea
[2020-12-15] MEDS: fentaNYL CITRATE INJ (*CRX) 100 MCG/2 ML VIAL 25 MCG IV PUSH ×3 (11:36→11:53)
--- NOTE | 2020-12-15 12:26 | ADMGEN ---
This patient, Betzy Juarez, was admitted to 2 Medical Room 253-01. Patient/family oriented to hospital policies and general routines including ID bracelet, bed and alarms, visiting hours, pain management, procedures, bathroom and other care routines, personal items, smoking policy, room service/diet, and visiting hours. Information on how to activate the Rapid Response Team has been discussed. Patient/Family are encouraged to report perceived risks to care and to ask questions if they do not understand what they are told or what they should do.
[2020-12-15] MEDS: oxyCODONE HCL (*CRX) 2.5 MG TAB IR PO ×3 (12:44→20:11)
[2020-12-15] MEDS: SODIUM CHLORIDE 0.9% IV 1,000 ML 125 ML IV CONT (12:44)
--- NOTE | 2020-12-15 14:57 | PM.IMCN ---
Assessment and Plan Assessment and plan (1) S/P total knee arthroplasty: Code(s): Z96.659 - Presence of unspecified artificial knee joint Status: Acute Assessment and Plan: postop care per orthopedic surgeon. The patient was asking for prescriptions for pain medication when she is discharged. I assured the patient that she will receive discharge instructions and Appropriate discharge medications when she leaves. follow-up postop care per orthopedic physician. Pain management and DVT prophylaxis per ortho. (2) Anxiety: Code(s): F41.9 - Anxiety disorder, unspecified Status: Chronic Assessment and Plan: Continue with patient's Paxil (3) Congestive heart failure: Code(s): I50.9 - Heart failure, unspecified Status: Chronic Assessment and Plan: patient stated she had been diagnosed with congestive heart failure in the past but there was nothing listed in her notes from Cardiology concerning congestive heart failure. I see no recent echo. the patient's Lasix has been scheduled however the patient stated that she would like to hold off on the Lasix until she was back home. She is on atenolol. (4) High cholesterol: Code(s): E78.00 - Pure hypercholesterolemia, unspecified Status: Chronic Assessment and Plan: Continue pravastatin (5) HTN (hypertension): Code(s): I10 - Essential (primary) hypertension Status: Chronic Assessment and Plan: continue with atenolol and amlodipine if her blood pressure allows and her lisinopril is on hold. (6) Angina pectoris: Code(s): I20.9 - Angina pectoris, unspecified Status: Acute Assessment and Plan: Continue with Ranexa. She follows with Dr. hu. she did have a cardiac workup prior to her surgery. She has had a cardiac catheterization in the past and was diagnosed with Anginal spasms. patient is also on isosorbide. She is on aspirin and that has been continue (7) Hypothyroidism: Code(s): E03.9 - Hypothyroidism, unspecified Status: Chronic Assessment and Plan: Continue with her levothyroxine HPI Data of Consult Consult date: 12/15/20 Requesting Physician: Aydin Pritchard MD Primary Care Provider: Janeth Viramontes MD Consult Narrative Narrative: Betzy Juarez is a 75 year old female The patient had a right total knee arthroplasty performed today. the patient tells me that she has had her left knee replaced by Dr. pritchard in the past and did well. The patient has severe medial compartment arthritis and the right knee and has been very symptomatic on a daily basis. The patient chose to undergo this procedure today and is expected to stay 1 night. Please see operative note. According to the records there were no immediate complications. Patient is admitted by orthopedic physician which I suspect is observation and The hospitalist are considered a consult. Patient has been evaluated by her carding doubler prior to surgery. She sees Dr. Hu as her carding doubler. The patient has no complaints at this time. Her date of service for consult is 12/15/2020 she was admitted under orthopedic physician. Review of Systems Review of Systems: All systems reviewed & are unremarkable except as noted in HPI and below Constitutional: Constitutional: Reports as per HPI and Reports no additional constitutional complaints Eyes: Eyes: Reports as per HPI and Reports no additional eye complaints ENT: Reports system reviewed and no additional complaints, except as documented and Reports Normal hearing present Cardiovascular: Cardiovascular: Reports no additional cardiovascular complaints Respiratory: Respiratory: Reports no additional respiratory complaints and Reports no additional respiratory complaints Gastrointestinal: Gastrointestinal: Reports as per HPI and Reports no additional gastrointestinal complaints Musculoskeletal: Musculoskeletal: Report
[2020-12-15] MEDS: oxyCODONE HCL (*CRX) 5 MG TAB IR PO ×2 (15:20→21:37)
[2020-12-15] MEDS: SENNA/DOCUSATE SODIUM TABLET 2 TAB PO (17:38)
[2020-12-15] MEDS: PRAVASTATIN SODIUM 20 MG TABLET 40 MG PO (21:37)
[2020-12-15] MEDS: FAMOTIDINE 20 MG TABLET PO (21:37)
[2020-12-15] MEDS: RANOLAZINE 500 MG TAB.ER.12H 1000 MG PO (21:37)
[2020-12-15] MEDS: APIXABAN 2.5 MG TABLET PO (21:38)
[2020-12-16] MEDS: ACETAMINOPHEN 500 MG TABLET 1000 MG PO ×3 (00:06→11:18)
[2020-12-16] MEDS: oxyCODONE HCL (*CRX) 2.5 MG TAB IR PO ×4 (00:07→13:24)
[2020-12-16] MEDS: oxyCODONE HCL (*CRX) 5 MG TAB IR PO (01:39)
[2020-12-16 02:00] VITALS: BP 158/56; PULSE 93; RESP 20; TEMP 36.7; O2SAT 99
[2020-12-16] MEDS: HYDROmorphone HCL INJ (*CRX) 1 MG/ML SYR 0.5 MG IV PUSH (03:19)
[2020-12-16 05:10] LABS: Basophils Percent Auto 0.1 % (0.2-1.2); Hematocrit 36.1 % (37.0-47.0); Hemoglobin 11.9 g/dL (12.0-15.0); Immature Granulocyte Absolute 0.08 K/mm3 (0.00-0.031); Immature Granulocyte Percent A 0.6 % (0-0.5); Lymphocytes Percent Auto 11.2 % (18.3-44.2); Mean Corpuscular Hemoglobin 32.5 pg (26-34); Mean Corpuscular Volume 98.6 fl (80-100); Mean Platelet Volume 10.4 fl (7.4-10.4); Monocytes Absolute Auto 1.8 K/mm3 (0.1-0.6); Monocytes Percent Auto 12.3 % (2.6-8.5); Neutrophils Absolute Auto 10.9 K/mm3 (1.3-6.7); Neutrophils Percent Auto 75.8 % (45.5-73.1); Platelet Count Result 242 k/mm3 (150-375); Red Blood Count 3.66 M/mm3 (4.2-5.4); Red Cell Distribution Width 12.4 % (11.5-14.5); White Blood Count 14.3 K/mm3 (4.5-10.0)
[2020-12-16 05:23] LABS: Anion Gap 4 mmol/L (8-16); Blood Urea Nitrogen 12 mg/dL (7-17); Calcium 8.2 mg/dL (8.4-10.2); Carbon Dioxide 30 mmol/L (22-30); Chloride 104 mmol/L (98-107); Estimated CRCL calculation 81 ml/min; Estimated Glomerular Filt Rate > 60; Glucose 142 mg/dL (65-105); Potassium 4.1 mmol/L (3.4-5.0); Sodium 138 mmol/L (137-145)
[2020-12-16] MEDS: LEVOTHYROXINE SODIUM 100 MCG TABLET 200 MCG PO (05:34)
[2020-12-16 06:00] VITALS: BP 145/54; PULSE 94; RESP 18; TEMP 36.5; O2SAT 97
--- NOTE | 2020-12-16 06:31 | PM.PNORT ---
Progress Note: A&P Additional Plan POD 1 alert , had some increased pain yesterday after PT, doing well this am, labs-noted, dressing is dry, NVI avss, overall doing well, pt is familiar with recovery since having other knee done, plan to send home today Subjective Subjective Date/Time Seen: 12/16/20 06:31 Objective Data Vital Signs Vital Signs: Vital Signs - 24 hr 12/15/20 10:46 12/15/20 11:00 12/15/20 11:15 Temperature 37.4 C Pulse Rate 84 83 82 Respiratory Rate 14 12 12 Blood Pressure 113/53 L 119/55 L 116/55 L Pulse Oximetry 95 97 94 12/15/20 11:30 12/15/20 11:45 12/15/20 12:00 Temperature Pulse Rate 82 82 81 Respiratory Rate 16 16 16 Blood Pressure 114/57 L 119/59 L 115/59 L Pulse Oximetry 93 94 98 12/15/20 12:20 12/15/20 12:35 12/15/20 13:53 Temperature 36.5 C 36.6 C 37.1 C Pulse Rate 94 98 81 Respiratory Rate 20 20 20 Blood Pressure 120/49 L 127/60 120/52 L Pulse Oximetry 78 L 80 L 96 12/15/20 17:53 12/15/20 22:00 12/16/20 02:00 Temperature 37.1 C 36.6 C 36.7 C Pulse Rate 86 88 93 Respiratory Rate 20 18 20 Blood Pressure 133/54 L 140/51 L 158/56 H Pulse Oximetry 98 96 99 Intake/Output Intake/Output: Intake & Output 12/13/20 12/14/20 12/15/20 12/16/20 23:59 23:59 23:59 23:59 Intake Total 2615 Output Total 400 Balance 2215 Meds/Results Medications: Active Medications Generic Name Dose Route Start Last Admin Trade Name Freq PRN Reason Stop Dose Admin Acetaminophen 1,000 mg 12/15/20 18:00 12/16/20 05:33 Acetaminophen 500 Mg Tablet PO 1,000 mg Q6HR CAMILA Administration Amlodipine Besylate 10 mg 12/16/20 09:00 Amlodipine Besylate 5 Mg Tablet PO QAM CAMILA Apixaban 2.5 mg 12/15/20 21:00 12/15/20 21:38 Apixaban 2.5 Mg Tablet PO 12/27/20 09:01 2.5 mg Q12HR [facility] Administration Aspirin 81 mg 12/16/20 09:00 Aspirin 81 Mg Enteric Tablet PO DAILY [facility] Atenolol 12.5 mg 12/16/20 09:00 Atenolol 12.5 Mg Tablet PO QAM [facility] Cephalexin HCl 500 mg 12/16/20 09:00 Cephalexin 500 Mg Capsule PO Q6H [facility] Diphenhydramine HCl 25 mg 12/15/20 12:08 Diphenhydramine Hcl Inj 50 Mg/Ml Vial IV PUSH Q6H PRN Itching Famotidine 20 mg 12/15/20 21:00 12/15/20 21:37 Famotidine 20 Mg Tablet PO 20 mg Q12HR [facility] Administration Furosemide 40 mg 12/16/20 09:00 Furosemide 40 Mg Tablet PO QAM [facility] Cefazolin Sodium 1 gm in 50 mls @ 100 mls/hr 12/15/20 15:00 12/16/20 06:04 Ancef 1 Gm/D5w 50 Ml Pm IVPB 12/16/20 07:29 100 mls/hr Q8H [facility] Administration Vancomycin HCl 1,000 mg in 250 mls @ 250 mls/hr 12/15/20 19:00 12/15/20 19:19 Vancomycin 1,000 Mg/D5w 250 Ml IVPB 12/16/20 07:59 Infused Q12H [facility] Infusion Ipratropium [place] 2 spray 12/15/20 12:08 Ipratropium Nasal [place] 0.06% 15 Ml Bottle NASAL BID PRN Congestion Isosorbide Mononitrate 90 mg 12/16/20 09:00 Isosorbide Mononitrate 30 Mg Tab.[facility]h [facility] [place]othyrox[facility] Sodium 200 mcg 12/16/20 06:30 12/16/20 05:34 Levothyroxine Sodium 100 Mcg Tablet PO 200 mcg [id number] [facility] Administration Levothyroxine Sodium 100 mcg 12/20/20 06:30 Levothyroxine Sodium 100 Mcg Tablet PO [id number] [facility] Naloxone HCl 0.1 mg 12/15/20 12:08 Naloxone Hcl 0.4 Mg/Ml Vial IV PUSH Q2M PRN Opiate Reversal Ondansetron HCl 4 mg 12/15/20 12:08 Ondansetron Inj 4 Mg/2 Ml Vial IV PUSH Q4H PRN Nausea And Vomiting Oxycodone HCl 2.5 mg 12/15/20 13:00 12/16/20 05:36 Oxycodone Hcl (*Crx) 2.5 Mg Tab Ir PO 2.5 mg Q4HR CAMILA Administration Oxycodone HCl 5 mg 12/15/20 12:08 12/16/20 01:39 Oxycodone Hcl (*Crx) 5 Mg Tab Ir PO 5 mg Q4H PRN Administration Pain Rated 4-6 Pantoprazole Sodium 40 mg 12/16/20 09:00 Pantoprazole 40 Mg Tablet PO QAM CAMILA Paroxetine HCl 40 mg 12/16/20 09:00 Paroxetine 20 Mg Tablet PO QAM CAMILA Polyethylene Glycol
--- NOTE | 2020-12-16 06:44 | PM.DS ---
DS: Admitting Diagnosis Admitting Diagnosis Admitting Diagnosis: right knee DJD DS: Summary Hospital Course Hospital Course: stable Time Spent with Patient Time attestation: 75-year-old female who underwent right total knee arthroplasty on 12/15/2020. Underwent the procedure without any complications postop she has been afebrile vital Signs was stable neurovascular is intact. She has a Mepilex dressing over her right knee. She is weight-bearing. She is on Eliquis for 2 weeks followed by baby aspirin twice a day for DVT prophylaxis. Pain is well controlled with scheduled Tylenol as well as oxycodone 5 mg. Her labs on postop day 1, hemoglobin was 11.9, her Chem panel was all within normal limits. Patient overall is doing very well. She had her left total knee done in 2019 as well where the recovery. She was advised to keep leg elevated at home prevent swelling but her exercises on a regular basis. She will change her Mepilex dressing at home in 1 week and then maintained until she is seen in the office. She is also going home on Senokot and MiraLax. She is not on Celebrex due to her history of angina. The patient was advised any questions or concerns she should call the office otherwise will see her at her appointment date. She has outpatient therapy starting later this week. DS: Data Data Completed and Pending Labs on day of discharge: Labs from last 24 hours 12/16/20 12/16/20 04:49 04:49 WBC 14.3 H RBC 3.66 L Hgb 11.9 L Hct 36.1 L MCV 98.6 MCH 32.5 MCHC 33.0 RDW 12.4 Plt Count 242 MPV 10.4 Immature Gran % (Auto) 0.6 H Neut % (Auto) 75.8 H Lymph % (Auto) 11.2 L [place] % (Auto) 12.3 H Eos % (Auto) 0.0 Baso % (Auto) 0.1 L Lymph # (Auto) 1.60 [place] # (Auto) 1.8 H Eos # (Auto) 0.0 Baso # (Auto) 0.0 Abs Immat Gran (auto) 0.08 H Absolute Neuts (auto) 10.9 H Absolute Nucleated RBC 0.0 Nucleated RBC % 0.0 Sodium 138 Potassium 4.1 Chloride 104 Carbon Dioxide 30 Anion Gap 4 L BUN 12 D Creatinine 0.60 L Estim Creat Clear Calc 81 Estimated GFR > 60 Glucose 142 H Calcium 8.2 L Discharge Plan Discharge Patient Disposition: Home, Self-Care Discharge Instructions: AYDIN PRITCHARD [facility], [place] [address] [address] [place] [id number] POST-OPERATIVE DISCHARGE INSTRUCTIONS TOTAL KNEE ARTHROPLASTY 1. When resting, lie on back with leg elevated above hear to minimize swelling. Significant swelling could indicate a blood clot and if this occurs call the office (or go to the ER) to have a venous ultrasound. 2. Do exercise 5 times a day. 3. Do not sit with leg down except for meals. 4. Wound Care: Nursing will give additional dressings at discharge. Patient to change dressing at home 1 week from surgery, then maintain until seen in office. 5. May shower with dressing in place. 6. Follow weight bearing status instructions. Patient Instructions: Precautions after Total Joint Replacement Surgery (DC), Knee Arthroscopy (DC) Follow-up/Referrals: Aydin Pritchard MD [Physician] - Keep Reg. Scheduled Appt. Discharge Medications: New acetaminophen 500 mg Tablet 1,000 mg PO Q6HR Qty: 60 RF: 0 sennosides-docusate sodium [Senokot-S] 8.6-50 mg Tablet 2 tab-cap PO BID Qty: 60 RF: 0 cephalexin 500 mg Capsule 500 mg PO Q6H Qty: 28 RF: 0 Eliquis 2.5 mg Tablet 2.5 mg PO Q12HR Qty: 28 RF: 0 polyethylene glycol 3350 [Miralax] 17 gram Powder In Packet 17 g PO QAM Qty: 30 RF: 0 aspirin [Adult Low Dose Aspirin] 81 mg tablet,delayed release (DR/EC) 81 mg PO BID Qty: 60 RF: 0 oxycodone 5 mg tablet 5 mg PO Q4H Qty: 50 RF: 0 Continued pravastatin [Pravachol] 40 mg tablet 40 mg PO HS RF: 0 lisinopril 10 mg tablet 10 mg PO DAILY RF: 0 atenolol 25 mg tablet 12.5 mg PO QAM RF: 0 amlodipine 10 mg tablet 10 mg PO QAM RF: 0 as
--- NOTE | 2020-12-16 08:07 | P.PNAN_ITS ---
Anes - Prog Note Post-Op Date/Time: 12/16/20 08:07 Cardiovascular status: normal Respiratory status: normal Airway patency: baseline Mental status: baseline Post-Op hydration status: normal Vital Signs: Last Vital Signs Temp 36.5 C 12/16/20 06:00 Pulse 94 12/16/20 06:00 Resp 18 12/16/20 06:00 BP 145/54 H 12/16/20 06:00 Pulse Ox 97 12/16/20 06:00 Pain Score (VAS): 4 I/O: Intake & Output 12/15/20 12/16/20 12/16/20 23:59 07:59 15:59 Intake Total 1865 750 Output Total 300 1000 Balance 1565 -250 Laboratory Tests 12/16/20 04:49 12/16/20 04:49 12/16/20 12/16/20 04:49 04:49 WBC 14.3 H RBC 3.66 L Hgb 11.9 L Hct 36.1 L MCV 98.6 MCH 32.5 MCHC 33.0 RDW 12.4 Plt Count 242 MPV 10.4 Immature Gran % (Auto) 0.6 H Neut % (Auto) 75.8 H Lymph % (Auto) 11.2 L [place] % (Auto) 12.3 H Eos % (Auto) 0.0 Baso % (Auto) 0.1 L Lymph # (Auto) 1.60 [place] # (Auto) 1.8 H Eos # (Auto) 0.0 Baso # (Auto) 0.0 Abs Immat Gran (auto) 0.08 H Absolute Neuts (auto) 10.9 H Absolute Nucleated RBC 0.0 Nucleated RBC % 0.0 Sodium 138 Potassium 4.1 Chloride 104 Carbon Dioxide 30 Anion Gap 4 L BUN 12 D Creatinine 0.60 L Estim Creat Clear Calc 81 Estimated GFR > 60 Glucose 142 H Calcium 8.2 L Post-procedural complaints: none Patient Feedback: Patient satisfied with anesthetic care.
[2020-12-16 08:31] VITALS: PULSE 86
[2020-12-16] MEDS: ISOSORBIDE MONONITRATE 30 MG TAB.ER.24H 90 MG PO (08:31)
[2020-12-16] MEDS: PANTOPRAZOLE 40 MG TABLET PO (08:31)
[2020-12-16] MEDS: atenoloL 12.5 MG TABLET PO (08:31)
[2020-12-16] MEDS: SENNA/DOCUSATE SODIUM TABLET 2 TAB PO (08:31)
[2020-12-16] MEDS: APIXABAN 2.5 MG TABLET PO (08:32)
[2020-12-16] MEDS: amLODIPine BESYLATE 5 MG TABLET 10 MG PO (08:32)
[2020-12-16] MEDS: PARoxetine 20 MG TABLET 40 MG PO (08:32)
[2020-12-16] MEDS: FAMOTIDINE 20 MG TABLET PO (08:32)
[2020-12-16] MEDS: FUROSEMIDE 40 MG TABLET PO (08:32)
[2020-12-16] MEDS: RANOLAZINE 500 MG TAB.ER.12H 1000 MG PO (08:32)
[2020-12-16] MEDS: ASPIRIN 81 MG ENTERIC TABLET PO (08:32)
[2020-12-16 10:00] VITALS: BP 150/62; PULSE 88; RESP 20; TEMP 36.4; O2SAT 97
[2020-12-16] MEDS: CEPHALEXIN 500 MG CAPSULE PO (11:18)
[2020-12-16] MEDS: polyethylene glycoL 3350 17 GM POWD.PACK PO (11:18)
--- NOTE | 2020-12-16 11:31 | PM.IMPN ---
Progress Note: A&P Assessment and Plan (1) S/P total knee arthroplasty: Code(s): Z96.659 - Presence of unspecified artificial knee joint Status: Acute Assessment and Plan: Patient is doing well and pain is under control -her insurance will not cover Eliquis in asked to change to Xarelto. I have spoken to the nurse who will let ortho know -she is doing well with physical therapy -okay to go home from a medical standpoint -Hgb a little low today 11.9 but no signs of ongoing blood loss on exam or with the history -WBC up likely due to sx and not infection (2) Anxiety: Code(s): F41.9 - Anxiety disorder, unspecified Status: Chronic Assessment and Plan: Chronic and stable. Continue with home Paxil (3) Congestive heart failure: Code(s): I50.9 - Heart failure, unspecified Status: Chronic Assessment and Plan: Reportedly chronic -no signs of acute heart failure -continue home furosemide, atenolol, lisinopril and isosorbide (4) High cholesterol: Code(s): E78.00 - Pure hypercholesterolemia, unspecified Status: Chronic Assessment and Plan: Continue pravastatin (5) HTN (hypertension): Code(s): I10 - Essential (primary) hypertension Status: Chronic Assessment and Plan: Last bp 145/54 -continue fuosemide, atenolol, lisinopril, isosorbide, and amolodapine. (6) Angina pectoris: Code(s): I20.9 - Angina pectoris, unspecified Status: Acute Assessment and Plan: Continue with Ranexa -She follows with Dr. hu. -She has had a cardiac catheterization in the past and was diagnosed with Anginal spasms. (7) Hypothyroidism: Code(s): E03.9 - Hypothyroidism, unspecified Status: Chronic Assessment and Plan: Continue with home levothyroxine Time Spent With Patient Time with patient: 25 - 35 minutes Subjective Date/time seen: 12/16/20 11:31 Interval history: Pt is a 75-year-old female here for elective right knee arthroplasty. Patient was seen today and is doing well. She had no complaints this time. She had worked with physical therapy and did do the steps and felt like she was ready to go home. Pt denies nausea, vomiting, lightheadedness, dizziness fevers, chills, constipation, diarrhea, chest pain, sob, or abdominal pain. Her pain is pretty well controlled this time Review of Systems Review of Systems: All systems reviewed & are unremarkable except as noted in HPI and below Exam Narrative: Exam Narrative: General: Well developed well nourished patient in NAD HEENT: normocephalic Neck: supple Neuro: Alert and oriented x4 CV:RRR Resp:CTA Abd: Soft, non distended. No pain to palpation. Positive bowel sounds Extremities: Right knee with bandage intact. No excessive swelling, erythema or pain. Pulses intact bilaterally as well as sensation and strength. Objective Data Vital Signs Vital Signs: Vital Signs - 24 hr 12/15/20 11:45 12/15/20 12:00 12/15/20 12:20 Temperature 97.7 F Pulse Rate 82 81 94 Respiratory Rate 16 16 20 Blood Pressure 119/59 L 115/59 L 120/49 L Pulse Oximetry 94 98 78 L 12/15/20 12:35 12/15/20 13:53 12/15/20 17:53 Temperature 97.9 F 98.8 F 98.8 F Pulse Rate 98 81 86 Respiratory Rate 20 20 20 Blood Pressure 127/60 120/52 L 133/54 L Pulse Oximetry 80 L 96 98 12/15/20 22:00 12/16/20 02:00 12/16/20 06:00 Temperature 97.9 F 98.1 F 97.7 F Pulse Rate 88 93 94 Respiratory Rate 18 20 18 Blood Pressure 140/51 L 158/56 H 145/54 H Pulse Oximetry 96 99 97 12/16/20 08:31 Temperature Pulse Rate 86 Respiratory Rate Blood Pressure Pulse Oximetry Intake/Output Intake/Output: Intake & Output 12/13/20 12/14/20 12/15/20 12/16/20 23:59 23:59 23:59 23:59 Intake Total 2615 950 Output Total 400 1000 Balance 2215 -50 Meds/Results Medications: Active Medications Generic Name Dose Route Star
[2020-12-16 14:00] VITALS: BP 117/33; PULSE 91; RESP 16; TEMP 36.9; O2SAT 96
--- NOTE | 2020-12-16 14:04 | PC.NURSE ---
Clarified Eliquis order with ROSALIA Hall. Care coordination has a discount card that patient may use as long as script is written for 1 month supply. Current order is for Eliquis x14 days. Per Nikunj, change order to 1 month supply but instruct her to take for 14 days.
== END 2020-12-16 15:00 | disposition home or self-care (01) ==
LOC: ANHSURGERY 05:48 → ANH2MED 12:14
PROVIDERS: Physician Assistant Surgical; PCP Internal Medicine; Visit Provider Orthopaedic Surgery
PROC: (CPT 27447; principal; 2020-12-15 07:30)
DX: M17.11 Unilateral primary osteoarthritis, right knee (principal); I11.0 Hypertensive heart disease with heart failure; I50.9 Heart failure, unspecified; E78.00 Pure hypercholesterolemia, unspecified; F41.9 Anxiety disorder, unspecified; I20.9 Angina pectoris, unspecified; E03.9 Hypothyroidism, unspecified; K21.9 Gastro-esophageal reflux disease without esophagitis; Z79.82 Long term (current) use of aspirin
CPT/HCPCS: 27447; 36415; 73560; 80048; 85025; 97110; 97116; 97161; 97165; 97530; 97535; A9270; C1713; C1776; J0171; J0690; J1100; J1170; J2250; J2270; J2704; J2795; J3010; J3370; J7030; J7120

== ENCOUNTER 2020-12-18 12:59 | Outpatient (RCR) | payer MEDICARE, SELFPAY ==
--- NOTE | 2020-12-18 13:49 | PTOPEVAL ---
Thank you for referring Betzy Juarez to [facility].? The patient is scheduled to be seen for therapy? __2__x/week for 12 visits. Please review, sign, date and return this plan of care VERN. I agree with and certify that the following plan of care is medically necessary. Referring Physician Date Admitting Provider: Attending Provider: Aydin Pritchard MD Referring Provider: *PT Outpatient Evaluation Start: 12/18/20 13:04 Freq: Status: Active Protocol: Document 12/18/20 13:05 ESTEBAN (Rec: 12/18/20 13:49 ESTEBAN [id number]) Therapy Assessment Status Assessment Status Assessment Status Evaluation Outpatient Past Medical History Neurological History Hx Neurological Disorders No Significant History Cardiovascular History Hx Angina Yes Hx Congestive Heart Failure Yes Hx Hypercholesterolemia Yes Hx Hypertension Yes Hx Other Cardiac Disorders Yes: DR AVILA, STRESS TEST-, ORTHOSTATIC HYPOTENSION Respiratory History Hx Sleep Apnea Yes: CPAP Gastrointestinal History Hx Appendectomy Yes Hx Cholecystectomy Yes Hx Gastroesophageal Reflux Disease Yes Hx Other Gastrointestinal Disorders Yes: ERCP X3, SCARED DUCTS PER PT. LAST 04/17/20 DR FERRIS, [facility] Genitourinary History Hx Genitourinary Disorders No Significant History Musculoskeletal History Hx Arthritis Yes: RT KNEE Hx Joint Replacement Yes: LTKA 08/2019 Hx Spinal Surgery Yes: LUMBAR SURGERY 05/2014- RODS/SCREWS Hx Other Musculoskeletal Disorders Yes: RT KNEE OA Hematological History Hx Hematological Disorders No Significant History Endocrine History Hx Hypothyroidism Yes HEENT History Hx Cataracts Yes: IMPLANTS Hx Macular Degeneration Yes: BILAT Hx Other HEENT Disorders Yes: DRY EYES Integumentary History Hx Shingles Yes: 2018 Reproductive History Hx Hysterectomy Yes Hx Other Reproductive Disorders Yes: ABSCESS- LT BREAST, PACKED X ~2MONTHS 10/2019 Psychosocial History Hx Anxiety Yes Hx Depression Yes Pain History History of Any Previous or Ongoing No Significant History Instance of Pain Anesthesia History Hx Anesthesia Reactions No Significant History Other History Hx Implanted Device Yes: LEFT KNEE, LOWER BACK Evaluation Information Problem Diagnosis right TKA Onset 12/15/20 Subjective Information Pt. undrwent right TKA on Query Text:As Reported By Patient/ Tuesday. She reports she
--- NOTE | 2021-01-12 09:51 | PCPTNOTE ---
January 12, 2021 Mrs. Juarez has received 7 Physical Therapy outpatient treatments. Treatment has consisted of open and closed kinetic chain activities to improve rom and strength. Patient also receives ice compression to decrease swelling in the knee. Patient is walking without an assistive device and no limp. AAROM is 0 to 113 degrees of movement in the right knee. Girth measurements show a 4 cm increase when compared to left uninvolved side. If you have any questions please feel free to call us. Thank you Diana Horowitz PTA
--- NOTE | 2021-01-26 09:26 | PCPTNOTE ---
January 26, 2021 Mrs Juarez has received 11 Phuycal Therapy outpatient treatments. Treatment has consisted of open and closed kinetic chain activities to improve range of motion and strength. Patient also receives ice/ compression to decreae swelling in the knee post exercise. Patient is now walking without an assistive device with no antalgic gait. Active range of motion of right knee is 0-112 degrees. Girth measurements show a 4cm increase when compared to left knee. If you have any questions please fee free to call us. Thank you Ibeth Castillo PTA
== END 2021-01-28 10:47 | disposition home or self-care (01) ==
LOC: CHSPT 12:59
PROVIDERS: PCP Internal Medicine; Visit Provider Orthopaedic Surgery
DX: Z96.651 Presence of right artificial knee joint (principal)
CPT/HCPCS: 97014; 97016; 97110; 97112; 97161; G0283

== ENCOUNTER 2021-03-09 08:35 | Outpatient (CLI) | payer MEDICARE, SELFPAY ==
--- NOTE | ~2021-03-09 | MM_ITS ---
EXAMINATION: MM screening danette BI w mauro HISTORY: Screening mammogram TECHNIQUE: Craniocaudal and mediolateral oblique 3-D tomosynthesis images were obtained and synthetic 2-D images were generated. CAD analysis was submitted and interpreted. COMPARISON: 01/08/2020, 10/25/2019 limited left breast ultrasound examinations 01/05/2019, 01/02/2018, 12/31/2016 bilateral digital screening mammogram examinations BREAST PARENCHYMAL COMPOSITION: The breasts are almost entirely fatty. FINDINGS: There is no evidence of suspicious mass, calcification, or architectural distortion to sugg est malignancy in either breast. There has been no suspicious interval change. IMPRESSION: 1. No mammographic evidence of malignancy. 2. Recommend routine screening mammography in one year. BI-RADS Category 1: Negative Reviewed, dictated and finalized at location A.
== END 2021-03-09 08:36 | disposition home or self-care (01) ==
LOC: CHSIMG 08:36
PROVIDERS: PCP Internal Medicine; Visit Provider Internal Medicine
DX: Z12.31 Encounter for screening mammogram for malignant neoplasm of breast (principal)
CPT/HCPCS: 77063; 77067

== ENCOUNTER 2021-03-20 11:58 | Outpatient (CLI) | payer MEDICARE, SELFPAY ==
--- NOTE | ~2021-03-20 | XR_ITS ---
EXAMINATION: XR hand RT min 3V DATE: 03/20/2021 12:18 INDICATION: Right hand and wrist pain post fall onto outstretched hand TECHNIQUE: 1. Posteroanterior, ulnar deviation, oblique, and lateral views of the right wrist were obtained. 2. Dorsal palmar, oblique and lateral views of the right hand were obtained. COMPARISON: None. FINDINGS: Diffuse osteopenia. Intra-articular fracture across the distal aspect of the radius with impaction of the radial styloid process and portion of the scaphoid fossa. There is approximately 2.5 mm step-off at the articular surface and buckling of the dorsal cortex. No other fractures identified. Normal al ignment in the right hand. Polyarticular osteoarthritis, moderate severity at the first carpometacarp al joint and mild at the distal radioulnar midcarpal, triscaphe and multiple metacarpophalangeal and interphalangeal joints. Mild soft tissue swelling about the wrist. IMPRESSION: 1. Impacted intra-articular fracture involving the right radial styloid process and portions of the s caphoid fossa with 2.5 mm step-off at the articular cortex. Reviewed, dictated and finalized at location A. IMPRESSION: 1. Impacted intra-articular fracture involving the right radial styloid process and portions of the scaphoid fossa with 2.5 mm step-off at the articular yvan x.
--- NOTE | ~2021-03-20 | XR_ITS ---
EXAMINATION: XR wrist RT min 3V DATE: 03/20/2021 12:18 INDICATION: Right hand and wrist pain post fall onto outstretched hand TECHNIQUE: 1. Posteroanterior, ulnar deviation, oblique, and lateral views of the right wrist were obtained. 2. Dorsal palmar, oblique and lateral views of the right hand were obtained. COMPARISON: None. FINDINGS: Diffuse osteopenia. Intra-articular fracture across the distal aspect of the radius with impaction of the radial styloid process and portion of the scaphoid fossa. There is approximately 2.5 mm step-off at the articular surface and buckling of the dorsal cortex. No other fractures identified. Normal al ignment in the right hand. Polyarticular osteoarthritis, moderate severity at the first carpometacarp al joint and mild at the distal radioulnar midcarpal, triscaphe and multiple metacarpophalangeal and interphalangeal joints. Mild soft tissue swelling about the wrist. IMPRESSION: 1. Impacted intra-articular fracture involving the right radial styloid process and portions of the s caphoid fossa with 2.5 mm step-off at the articular cortex. Reviewed, dictated and finalized at location A. IMPRESSION: 1. Impacted intra-articular fracture involving the right radial styloid process and portions of the scaphoid fossa with 2.5 mm step-off at the articular yvan x.
== END 2021-03-20 11:59 | disposition home or self-care (01) ==
LOC: CHSIMG 12:00
PROVIDERS: PCP Internal Medicine; Visit Provider Nurse Practitioner Family
DX: M25.531 Pain in right wrist (principal)
CPT/HCPCS: 73110; 73130

== ENCOUNTER 2021-03-23 07:05 | Outpatient (CLI) | payer MEDICARE, SELFPAY ==
[2021-03-23 07:35] LABS: Add Urine Microscopic? NO; Appearance Urine Clear (Clear); Basophils Absolute Auto 0.03 K/mm3 (0.00-0.10); Basophils Percent Auto 0.6 % (0.0-1.0); Bilirubin Urine Negative (Negative); Blood Urine Negative (Negative); Color Urine Yellow (Yellow); Eosinophils Absolute Auto 0.11 K/mm3 (0.02-0.50); Glucose Urine UA Negative (Negative); Hematocrit 42.6 % (35.0-42.0); Hemoglobin 13.5 g/dL (11.7-13.8); Immature Granulocyte Absolute 0.01 K/mm3 (0.00-0.00); Immature Granulocyte Percent A 0.2 % (0.0-0.0); Ketones Urine Negative (Negative); Leukocyte Esterase Ur Negative (Negative); Lymphocytes Absolute Auto 1.76 K/mm3 (1.10-4.50); Lymphocytes Percent Auto 32.4 % (18.0-42.0); Mean Corpuscular HGB Conc 31.7 g/dL (32.0-36.0); Mean Corpuscular Hemoglobin 30.8 pg (27.0-31.0); Mean Platelet Volume 10.6 fl (9.2-11.8); Monocytes Absolute Auto 0.45 K/mm3 (0.10-0.90); Monocytes Percent Auto 8.3 % (2.0-11.0); Neutrophils Absolute Auto 3.1 K/mm3 (1.7-7.2); Neutrophils Percent Auto 56.5 % (50.0-70.0); Nitrate Urine Negative (Negative); Platelet Count Result 280 K/mm3 (150-420); Protein Urine Negative (Negative); Red Blood Count 4.39 M/mm3 (4.20-5.40); Red Cell Distribution Width 13.2 % (11.6-14.4); Urobilinogen Urine 0.2 mg/dL (0.2-1.0); White Blood Count 5.4 K/mm3 (4.8-10.8)
[2021-03-23 08:43] LABS: Alanine Aminotransferase 23 U/L (14-59); Albumin Level 3.5 g/dL (3.4-5.0); Alkaline Phosphatase 84 U/L (46-116); Anion Gap 8 mmol/L (8-16); Aspartate Amino Transferase 13 U/L (15-37); Bilirubin,Total 0.4 mg/dL (0.00-1.00); Blood Urea Nitrogen 10 mg/dL (7-18); Calcium 8.8 mg/dL (8.5-10.1); Carbon Dioxide 32 mmol/L (21-32); Chloride 103 mmol/L (98-108); Cholesterol 169 mg/dL (0-200); Creatine Kinase 68 U/L (26-192); Estimated Glomerular Filt Rate > 60; Free T3 2.27 pg/mL (2.18-3.98); Free T4 Free Thyroxine 1.14 ng/dL (0.76-1.46); Glucose 94 mg/dL (70-99); HDL Direct 71 mg/dL (40-60); LDL Cholesterol Calculated 86 mg/dL (<130); NT Pro B Type Natriuretic Pept 204 pg/mL (0-125); Osmolality Calculated 295 mOsm/kg (285-295); Sodium 143 mmol/L (136-145); Thyroid Stimulating Hormone 6.78 uIU/mL (0.36-3.74); Total Protein 6.8 g/dL (6.4-8.2); Triglycerides 61 mg/dL (0-150)
[2021-03-25 09:40] LABS: Vitamin D 25 Hydroxy 35 ng/mL (30-100)
== END 2021-03-23 07:06 | disposition home or self-care (01) ==
LOC: CHSLAB 07:07
PROVIDERS: PCP Internal Medicine; Visit Provider Internal Medicine
DX: E78.2 Mixed hyperlipidemia (principal); I10 Essential (primary) hypertension; E03.4 Atrophy of thyroid (acquired); I25.10 Atherosclerotic heart disease of native coronary artery without angina pectoris; R73.01 Impaired fasting glucose; M81.0 Age-related osteoporosis without current pathological fracture; R06.02 Shortness of breath
CPT/HCPCS: 36415; 80053; 80061; 81003; 82306; 82550; 83880; 84439; 84443; 84481; 85025

== ENCOUNTER 2021-03-24 08:37 | Outpatient (CLI) | payer MEDICARE, SELFPAY ==
--- NOTE | ~2021-03-24 | XR_ITS ---
XR wrist RT min 3V DATE: 03/24/2021 09:05 INDICATION: Radial fracture TECHNIQUE: 3 views COMPARISON: 03/20/2021 right hand and wrist FINDINGS: There is no interval change in position or alignment at the intra-articular minimally depre ssed fracture of the distal radius compared to 03/20/2021. Radiocarpal alignment is preserved. There is diffuse osteopenia. Osteoarthritis at the first carpometacarpal joint. IMPRESSION: No significant change in position or alignment at the distal radial intra-articular fract ure Reviewed, dictated and finalized at location A. IMPRESSION: No significant change in position or alignment at the distal radial intra-articular fracture
== END 2021-03-24 08:38 | disposition home or self-care (01) ==
LOC: CHSIMG 08:39
PROVIDERS: PCP Internal Medicine; Visit Provider Orthopaedic Surgery
DX: M25.531 Pain in right wrist (principal)
CPT/HCPCS: 73110

== ENCOUNTER 2021-04-08 10:57 | Outpatient (RCR) | payer MEDICARE, SELFPAY ==
--- NOTE | 2021-04-08 11:35 | PTOPEVAL ---
Thank you for referring Betzy Juarez to [facility].? The patient is scheduled to be seen for therapy? __2__x/week for 8 visits. Please review, sign, date and return this plan of care VERN. I agree with and certify that the following plan of care is medically necessary. Referring Physician Date Admitting Provider: Attending Provider: Aydin Pritchard MD Referring Provider: *PT Outpatient Evaluation Start: 04/08/21 10:55 Freq: Status: Active Protocol: Document 04/08/21 10:55 ESTEBAN (Rec: 04/08/21 11:34 ESTEBAN [id number]) Therapy Assessment Status Assessment Status Assessment Status Evaluation Outpatient Past Medical History Neurological History Hx Neurological Disorders No Significant History Cardiovascular History Hx Angina Yes Hx Congestive Heart Failure Yes Hx Hypercholesterolemia Yes Hx Hypertension Yes Hx Other Cardiac Disorders Yes: DR AVILA, STRESS TEST-, ORTHOSTATIC HYPOTENSION Respiratory History Hx Sleep Apnea Yes: CPAP Gastrointestinal History Hx Appendectomy Yes Hx Cholecystectomy Yes Hx Gastroesophageal Reflux Disease Yes Hx Other Gastrointestinal Disorders Yes: ERCP X3, SCARED DUCTS PER PT. LAST 04/17/20 DR FERRIS, [facility] Genitourinary History Hx Genitourinary Disorders No Significant History Musculoskeletal History Hx Arthritis Yes: RT KNEE Hx Joint Replacement Yes: LTKA 08/2019 Hx Spinal Surgery Yes: LUMBAR SURGERY 05/2014- RODS/SCREWS Hx Other Musculoskeletal Disorders Yes: RT KNEE OA Hematological History Hx Hematological Disorders No Significant History Endocrine History Hx Hypothyroidism Yes HEENT History Hx Cataracts Yes: IMPLANTS Hx Macular Degeneration Yes: BILAT Hx Other HEENT Disorders Yes: DRY EYES Integumentary History Hx Shingles Yes: 2017 Reproductive History Hx Hysterectomy Yes Hx Other Reproductive Disorders Yes: ABSCESS- LT BREAST, PACKED X ~2MONTHS 10/2019 Psychosocial History Hx Anxiety Yes Hx Depression Yes Pain History History of Any Previous or Ongoing No Significant History Instance of Pain Anesthesia History Hx Anesthesia Reactions No Significant History Other History Hx Implanted Device Yes: LEFT KNEE, LOWER BACK Evaluation Information Problem Diagnosis ITB tendonitis, right knee stiffness Onset 03/20/21 Subjective Information Pt. reports she fell on
== END 2021-05-06 13:53 | disposition home or self-care (01) ==
LOC: CHSPT 10:57
PROVIDERS: Visit Provider Orthopaedic Surgery
DX: M76.30 Iliotibial band syndrome, unspecified leg (principal)
CPT/HCPCS: 97016; 97110; 97112; 97161

== ENCOUNTER 2021-05-12 07:44 | Outpatient (RCR) | payer MEDICARE, SELFPAY ==
--- NOTE | 2021-05-12 08:58 | OTOPEVAL ---
Thank you for referring Betzy Juarez to [facility].? The patient is scheduled to be seen for therapy? ____x/week for ___ weeks. Please review, sign, date and return this plan of care VERN. I agree with and certify that the following plan of care is medically necessary. Referring Physician Date Admitting Provider: Attending Provider: Kendall Maurer MD Referring Provider: *OT Outpatient Evaluation Start: 05/12/21 07:50 Freq: Status: Active Protocol: Document 05/12/21 07:51 MBS (Rec: 05/12/21 08:57 [facility] [id number]) Therapy Assessment Status Assessment Status Assessment Status Evaluation Outpatient Past Medical History Neurological History Hx Neurological Disorders No Significant History Cardiovascular History Hx Angina Yes Hx Congestive Heart Failure Yes Hx Hypercholesterolemia Yes Hx Hypertension Yes Hx Other Cardiac Disorders Yes: DR AVILA, STRESS TEST-, ORTHOSTATIC HYPOTENSION Respiratory History Hx Sleep Apnea Yes: CPAP Gastrointestinal History Hx Appendectomy Yes Hx Cholecystectomy Yes Hx Gastroesophageal Reflux Disease Yes Hx Other Gastrointestinal Disorders Yes: ERCP X3, SCARED DUCTS PER PT. LAST 04/17/20 DR FERRIS, [facility] Genitourinary History Hx Genitourinary Disorders No Significant History Musculoskeletal History Hx Arthritis Yes: RT KNEE Hx Joint Replacement Yes: LTKA 08/2019 Hx Spinal Surgery Yes: LUMBAR SURGERY 05/2014- RODS/SCREWS Hx Other Musculoskeletal Disorders Yes: RT KNEE OA Hematological History Hx Hematological Disorders No Significant History Endocrine History Hx Hypothyroidism Yes HEENT History Hx Cataracts Yes: IMPLANTS Hx Macular Degeneration Yes: BILAT Hx Other HEENT Disorders Yes: DRY EYES Integumentary History Hx Shingles Yes: 2018 Reproductive History Hx Hysterectomy Yes Hx Other Reproductive Disorders Yes: ABSCESS- LT BREAST, PACKED X ~2MONTHS 10/2019 Psychosocial History Hx Anxiety Yes Hx Depression Yes Pain History History of Any Previous or Ongoing No Significant History Instance of Pain Anesthesia History Hx Anesthesia Reactions No Significant History Other History Hx Implanted Device Yes: LEFT KNEE, LOWER BACK Evaluation Information Problem Diagnosis decreased ROM and strength Onset 03/20/21 Cause R radial styloid fracture Subjective Information Patient reports elle
--- NOTE | 2021-06-08 08:44 | OTOPEVAL ---
Thank you for referring Betzy Juarez to [facility].? The patient is scheduled to be seen for therapy? ____x/week for ___ weeks. Please review, sign, date and return this plan of care VERN. I agree with and certify that the following plan of care is medically necessary. Referring Physician Date Admitting Provider: Attending Provider: Kendall Maurer MD Referring Provider: *OT Outpatient Evaluation Start: 05/12/21 07:50 Freq: Status: Active Protocol: Document 06/08/21 08:00 MBS (Rec: 06/08/21 08:44 MBS [id number]) Therapy Assessment Status Assessment Status Assessment Status Discharge Outpatient Past Medical History Neurological History Hx Neurological Disorders No Significant History Cardiovascular History Hx Angina Yes Hx Congestive Heart Failure Yes Hx Hypercholesterolemia Yes Hx Hypertension Yes Hx Other Cardiac Disorders Yes: DR AVILA, STRESS TEST-, ORTHOSTATIC HYPOTENSION Respiratory History Hx Sleep Apnea Yes: CPAP Gastrointestinal History Hx Appendectomy Yes Hx Cholecystectomy Yes Hx Gastroesophageal Reflux Disease Yes Hx Other Gastrointestinal Disorders Yes: ERCP X3, SCARED DUCTS PER PT. LAST 04/17/20 DR FERRIS, [facility] Genitourinary History Hx Genitourinary Disorders No Significant History Musculoskeletal History Hx Arthritis Yes: RT KNEE Hx Joint Replacement Yes: LTKA 08/2019 Hx Spinal Surgery Yes: LUMBAR SURGERY 05/2014- RODS/SCREWS Hx Other Musculoskeletal Disorders Yes: RT KNEE OA Hematological History Hx Hematological Disorders No Significant History Endocrine History Hx Hypothyroidism Yes HEENT History Hx Cataracts Yes: IMPLANTS Hx Macular Degeneration Yes: BILAT Hx Other HEENT Disorders Yes: DRY EYES Integumentary History Hx Shingles Yes: 2018 Reproductive History Hx Hysterectomy Yes Hx Other Reproductive Disorders Yes: ABSCESS- LT BREAST, PACKED X ~2MONTHS 10/2019 Psychosocial History Hx Anxiety Yes Hx Depression Yes Pain History History of Any Previous or Ongoing No Significant History Instance of Pain Anesthesia History Hx Anesthesia Reactions No Significant History Other History Hx Implanted Device Yes: LEFT KNEE, LOWER BACK Evaluation Information Problem Subjective Information Patient reports that she feels Query Text:As Reported By Patient/ like her wrist is doing very Family well. She states that she is
== END 2021-06-08 09:43 | disposition home or self-care (01) ==
LOC: CHSOT 07:44
PROVIDERS: Visit Provider Orthopaedic Surgery
DX: S52.501D Unspecified fracture of the lower end of right radius, subsequent encounter for closed fracture with routine healing (principal)
CPT/HCPCS: 97014; 97110; 97140; 97165; G0283

== ENCOUNTER 2021-06-09 09:49 | Outpatient (CLI) | payer MEDICARE, SELFPAY ==
--- NOTE | ~2021-06-09 | MR_ITS ---
EXAMINATION: MR hip LT wo con DATE: 06/09/2021 11:05 INDICATION: Left hip pain TECHNIQUE: Magnetic resonance imaging (MRI) of the left hip was performed without intravenous contra st. Sequences included full-field axial PD-weighted FS FSE and T1-weighted FSE, coronal of the pelvis with PD-weighted FS FSE, small field of view of the left hip with axial PD-weighted FS FSE, sagitta l PD-weighted FS FSE and coronal PD weighted FS FSE. Additional radial T1-weighted FGR oriented ortho gonal to the acetabular rim were obtained for evaluation of the labrum. COMPARISON: None FINDINGS: Bones/labrum/cartilage: Postoperative changes of prior anterior and posterior spinal fusion at L4-L5 with metallic magnetic f ield artifact associated with a left-sided vertical brandt and pedicle screw fixation at this level. Bon e alignment is normal. There is prominent marrow edema along the anterosuperior and posterosuperior a spects of the left femoral head surrounding a subtle linear low signal intensity likely fracture line s. There is subtle minimal flattening of the overlying articular cortices. Similarly there is additio nal marrow edema surrounding a linear low signal intensity fracture lines at the anterosuperior and p osterior superior aspects of the left acetabulum. Mild osteoarthritis with only mild nonuniform joint space along the margins of the left hip joint space with normal left acetabulum. Small left hip join t effusion. Physiologic amount fluid in the right hip joint space. Soft tissues: No asymmetric muscle atrophy in the pelvis and visualized proximal thighs. Small amount of fluid in t he left radius medius and gluteus minimus bursae consistent with mild bursitis. There is mild left gl uteus minimus tendinopathy without discrete tear. There is an complete tear of the lateral facet inse rtion of the anterior left gluteus medius tendon and partial thickness tear at the posterolateral fac et footplate of the more posterior left gluteus medius tendon. There is approximately 2-3 similar pro ximal retraction of the torn portion of the left gluteus medius medius tendon. There is mild tendinop athy without discrete tear of the right gluteus minimus and at the posterolateral facet insertion of the right gluteus medius tendon. Bilateral iliopsoas tendons and proximal right hamstring tendons are normal. Mild left ischial bursitis with mild tendinopathy without discrete tear at the origin of the left semimembranosus tendon. There is marked diverticulosis of the sigmoid colon without adjacent in flammatory change to suggest diverticulitis. The uterus is not identified and has likely been surgica lly resected. Limited evaluation of visceral organs of the pelvis is otherwise unremarkable. No pa thologically enlarged pelvic/inguinal lymphadenopathy. IMPRESSION: 1. Marrow edema surrounding juxtaposed likely stress versus insufficiency fractures at the anterosupe rior and posterosuperior aspects of both the left femoral head and left acetabulum. 2. Complete avulsion and 2-3 cm proximal retraction of the anterior left gluteus medius tendon from i ts lateral facet footplate and partial tear at the posterior superior facet footplate of the more pos terior tendon. 3. Mild tendinopathy without discrete tears at the lateral gluteus minimus and right gluteus medius t endons and at the left ischial tuberosity origin of the proximal left semimembranosus tendon. 4. Prominent sigmoid diverticulosis. Reviewed, dictated and finalized at location A. IMPRESSION: 1. Marrow edema surrounding juxtaposed likely stress versus insufficiency fract ures at the anterosuperior and posterosuperior aspects of both the left femoral head and left acetabulum. 2. Complete avulsion and 2-3 cm proximal retraction of the anterior left
== END 2021-06-09 09:50 | disposition home or self-care (01) ==
PROVIDERS: PCP Internal Medicine; Visit Provider Orthopaedic Surgery
DX: M25.552 Pain in left hip (principal); K57.30 Diverticulosis of large intestine without perforation or abscess without bleeding
CPT/HCPCS: 73721

== ENCOUNTER 2021-06-12 14:36 | Outpatient (CLI) | payer MEDICARE, SELFPAY ==
[2021-06-15 02:34] LABS: Vitamin D 25 Hydroxy 34 ng/mL (30-100)
== END 2021-06-12 14:37 | disposition home or self-care (01) ==
LOC: CHSLAB 14:39
PROVIDERS: PCP Internal Medicine; Visit Provider Orthopaedic Surgery
DX: E55.9 Vitamin D deficiency, unspecified (principal)
CPT/HCPCS: 36415; 82306

== ENCOUNTER 2021-06-16 10:41 | Outpatient (RCR) | payer MEDICARE, SELFPAY ==
--- NOTE | 2021-06-16 11:39 | PTOPEVAL ---
Thank you for referring Betzy Juarez to [facility].? The patient is scheduled to be seen for therapy? ____x/week for ___ weeks. Please review, sign, date and return this plan of care VERN. I agree with and certify that the following plan of care is medically necessary. Referring Physician Date Admitting Provider: Attending Provider: Aydin Pritchard MD Referring Provider: *PT Outpatient Evaluation Start: 06/16/21 10:52 Freq: Status: Active Protocol: Document 06/16/21 10:55 ACR (Rec: 06/16/21 11:37 ACR [id number]) Therapy Assessment Status Assessment Status Assessment Status Evaluation Outpatient Past Medical History Neurological History Hx Neurological Disorders No Significant History Cardiovascular History Hx Angina Yes Hx Congestive Heart Failure Yes Hx Hypercholesterolemia Yes Hx Hypertension Yes Hx Other Cardiac Disorders Yes: DR AVILA, STRESS TEST-, ORTHOSTATIC HYPOTENSION Respiratory History Hx Sleep Apnea Yes: CPAP Gastrointestinal History Hx Appendectomy Yes Hx Cholecystectomy Yes Hx Gastroesophageal Reflux Disease Yes Hx Other Gastrointestinal Disorders Yes: ERCP X3, SCARED DUCTS PER PT. LAST 04/17/20 DR FERRIS, [facility] Genitourinary History Hx Genitourinary Disorders No Significant History Musculoskeletal History Hx Arthritis Yes: RT KNEE Hx Joint Replacement Yes: LTKA 08/2019 Hx Spinal Surgery Yes: LUMBAR SURGERY 05/2014- RODS/SCREWS Hx Other Musculoskeletal Disorders Yes: RT KNEE OA Hematological History Hx Hematological Disorders No Significant History Endocrine History Hx Hypothyroidism Yes HEENT History Hx Cataracts Yes: IMPLANTS Hx Macular Degeneration Yes: BILAT Hx Other HEENT Disorders Yes: DRY EYES Integumentary History Hx Shingles Yes: 2018 Reproductive History Hx Hysterectomy Yes Hx Other Reproductive Disorders Yes: ABSCESS- LT BREAST, PACKED X ~2MONTHS 10/2019 Psychosocial History Hx Anxiety Yes Hx Depression Yes Pain History History of Any Previous or Ongoing No Significant History Instance of Pain Anesthesia History Hx Anesthesia Reactions No Significant History Other History Hx Implanted Device Yes: LEFT KNEE, LOWER BACK Evaluation Information Problem Diagnosis walker training due to torn muscles and small fracture in hip Onset 06/12/21 Sub
== END 2021-06-16 16:34 | disposition home or self-care (01) ==
LOC: CHSPT 10:41
PROVIDERS: Visit Provider Orthopaedic Surgery
DX: S72.052D Unspecified fracture of head of left femur, subsequent encounter for closed fracture with routine healing (principal)
CPT/HCPCS: 97116; 97161

== ENCOUNTER 2021-09-23 07:32 | Outpatient (CLI) | payer MEDICARE, SELFPAY ==
[2021-09-23 07:51] LABS: Basophils Absolute Auto 0.03 K/mm3 (0.00-0.10); Basophils Percent Auto 0.6 % (0.0-1.0); Eosinophils Absolute Auto 0.09 K/mm3 (0.02-0.50); Eosinophils Percent Auto 1.7 % (1.0-6.0); Hemoglobin 14.9 g/dL (11.7-13.8); Immature Granulocyte Absolute 0.02 K/mm3 (0.00-0.00); Immature Granulocyte Percent A 0.4 % (0.0-0.0); Lymphocytes Absolute Auto 1.91 K/mm3 (1.10-4.50); Lymphocytes Percent Auto 36.8 % (18.0-42.0); Mean Corpuscular HGB Conc 32.4 g/dL (32.0-36.0); Mean Corpuscular Hemoglobin 32.5 pg (27.0-31.0); Mean Corpuscular Volume 100.2 fL (78.0-102.0); Mean Platelet Volume 10.1 fl (9.2-11.8); Monocytes Absolute Auto 0.47 K/mm3 (0.10-0.90); Monocytes Percent Auto 9.1 % (2.0-11.0); Neutrophils Absolute Auto 2.7 K/mm3 (1.7-7.2); Neutrophils Percent Auto 51.4 % (50.0-70.0); Platelet Count Result 284 K/mm3 (150-420); Red Blood Count 4.59 M/mm3 (4.20-5.40); Red Cell Distribution Width 12.5 % (11.6-14.4); White Blood Count 5.2 K/mm3 (4.8-10.8)
[2021-09-23 07:52] LABS: Add Urine Microscopic? NO; Appearance Urine Clear (Clear); Bilirubin Urine Negative (Negative); Blood Urine Negative (Negative); Color Urine Light Yellow (Yellow); Glucose Urine UA Negative (Negative); Ketones Urine Negative (Negative); Leukocyte Esterase Ur Negative (Negative); Nitrate Urine Negative (Negative); Protein Urine Negative (Negative); Specific Grav Ur 1.015 (1.010-1.020); Urobilinogen Urine 0.2 mg/dL (0.2-1.0); pH Urine 7.5 (5.0-8.0)
[2021-09-23 08:14] LABS: Hemoglobin A1C 5.2 % (<5.7)
[2021-09-23 08:49] LABS: Alanine Aminotransferase 28 U/L (14-59); Albumin Level 3.8 g/dL (3.4-5.0); Alkaline Phosphatase 72 U/L (46-116); Anion Gap 4 mmol/L (8-16); Aspartate Amino Transferase 12 U/L (15-37); Bilirubin,Total 0.4 mg/dL (0.00-1.00); Blood Urea Nitrogen 11 mg/dL (7-18); Calcium 9.4 mg/dL (8.5-10.1); Carbon Dioxide 34 mmol/L (21-32); Chloride 103 mmol/L (98-108); Cholesterol 191 mg/dL (0-200); Creatine Kinase 61 U/L (26-192); Estimated Glomerular Filt Rate > 60; Free T3 2.31 pg/mL (2.18-3.98); Free T4 Free Thyroxine 1.13 ng/dL (0.76-1.46); Glucose 96 mg/dL (70-99); HDL Direct 79 mg/dL (40-60); LDL Cholesterol Calculated 92 mg/dL (<130); NT Pro B Type Natriuretic Pept 119 pg/mL (0-125); Osmolality Calculated 291 mOsm/kg (285-295); Potassium 4.2 mmol/L (3.5-5.1); Sodium 141 mmol/L (136-145); Thyroid Stimulating Hormone 2.67 uIU/mL (0.36-3.74); Triglycerides 99 mg/dL (0-150)
[2021-09-28 03:31] LABS: Vitamin D 25 Hydroxy 36 ng/mL (30-100)
== END 2021-09-23 07:33 | disposition home or self-care (01) ==
LOC: CHSLAB 07:34
PROVIDERS: PCP Internal Medicine; Visit Provider Internal Medicine
DX: E78.2 Mixed hyperlipidemia (principal); I10 Essential (primary) hypertension; R73.01 Impaired fasting glucose; E03.4 Atrophy of thyroid (acquired); E53.8 Deficiency of other specified B group vitamins; M81.0 Age-related osteoporosis without current pathological fracture; R06.00 Dyspnea, unspecified
CPT/HCPCS: 36415; 80053; 80061; 81003; 82306; 82550; 83036; 83880; 84439; 84443; 84481; 85025

== ENCOUNTER 2022-03-11 07:52 | Outpatient (CLI) | payer MEDICARE, SELFPAY ==
--- NOTE | ~2022-03-11 | DEXA_ITS ---
Bone Density Report Name: FREDDIE MARTÍNEZ Age: 76 Sex: Female Ethnicity: White Date of : 1945 Indication: postmenopausal; screening for osteoporosis; height loss; prior fracture; hysterectomy; Referring Provider: Janeth Viramontes Study: Bone densitometry was performed. Exam Date: March 11, 2022 Accession number: [id number] Bone Density: Region BMD T-score Z-score Classification Femoral Neck (Left) 0.698 -1.4 0.7 Osteopenia Total Hip (Left) 0.792 -1.2 0.5 Osteopenia Femoral Neck (Right) 0.641 -1.9 0.2 Osteopenia Total Hip (Right) 0.757 -1.5 0.2 Osteopenia Femoral Neck Mean 0.670 -1.6 0.4 Osteopenia Total Hip Mean 0.774 -1.4 0.4 Osteopenia World Health Organization criteria for BMD impression classify patients as: Normal (T-score at or above -1.0), Osteopenia (T-score between -1.0 and -2.5), or Osteoporosis (T-score at or below -2.5). 10-year Fracture Risk: FRAX not reported because: Prior hip or vertebral fracture Clinical Information Provided by Patient: Have had a previous hip or vertebral fracture Has had a low trauma fracture Has used the following medications: Vitamin D, Calcium Has the following medical conditions: Hysterectomy Patient maximum height was 68 Drinks caffeinated beverages Onset of menses at age 12 Number of children 2 Missed period for more than 6 months in a row Impression: The patient has low bone mass, based on the Right Femoral Neck T-score. The patient has risk factors, including: previous fracture. Discussion: INCREASED RISK OF FRACTURE DUE TO HISTORY OF FRACTURE. The patient's previous fracture puts the patient at high risk of a future fracture. In untreated patients, the risk of osteoporotic fracture increases approximately two-fold for each 1.0 SD decrease in T-score. Low bone density is not the only risk factor for fracture; also consider factors such as patient's age, frailty or poor health, risk of falling, risk of injury, previous osteoporotic fracture, family history of osteoporosis, cigarette smoking, low body weight, etc. Not everyone with a low trauma fracture has osteoporosis; osteomalacia and other metabolic bone disorders should also be considered. Patients who have osteoporosis should be evaluated for specific diseases and conditions (secondary causes) that may cause or contribute to bone loss and fracture risk. National Osteoporosis Foundation (NOF) recommends pharmacologic intervention for patients with a prior hip or vertebral fracture regardless of BMD T-score. The patient should follow a healthful lifestyle (good nutrition with adequate calcium and vitamin D, and appropriate weight-bearing exercise). Follow-Up: Consider a repeat BMD and Vertebral Fracture Assessment (VFA) exam in 2 years or sooner if medically necessary, to reassess this patien
--- NOTE | ~2022-03-11 | MM_ITS ---
EXAMINATION: MM screening danette BI w mauro HISTORY: Screening TECHNIQUE: Craniocaudal and mediolateral oblique 3-D tomosynthesis images were obtained and synthetic 2-D images were generated. CAD analysis was submitted and interpreted. COMPARISON: Comparison to multiple prior studies sequentially, with oldest reviewed study dated 12/24. BREAST PARENCHYMAL COMPOSITION: There are scattered areas of fibroglandular density. FINDINGS: There is no evidence of suspicious mass, calcification, or architectural distortion to sugg est malignancy in either breast. There has been no suspicious interval change. IMPRESSION: 1. No mammographic evidence of malignancy. 2. Recommend routine screening mammography in one year. BI-RADS Category 1: Negative Reviewed, dictated and finalized at location A.
== END 2022-03-11 07:53 | disposition home or self-care (01) ==
LOC: CHSIMG 07:54
PROVIDERS: PCP Internal Medicine; Visit Provider Internal Medicine
DX: M81.0 Age-related osteoporosis without current pathological fracture (principal); Z12.31 Encounter for screening mammogram for malignant neoplasm of breast
CPT/HCPCS: 77063; 77067; 77080

== ENCOUNTER 2022-03-15 07:14 | Outpatient (CLI) | payer MEDICARE, SELFPAY ==
[2022-03-15 07:32] LABS: Basophils Absolute Auto 0.02 K/mm3 (0.00-0.10); Basophils Percent Auto 0.4 % (0.0-1.0); Eosinophils Absolute Auto 0.08 K/mm3 (0.02-0.50); Eosinophils Percent Auto 1.4 % (1.0-6.0); Hematocrit 43.5 % (35.0-42.0); Hemoglobin 14.3 g/dL (11.7-13.8); Immature Granulocyte Absolute 0.01 K/mm3 (0.00-0.00); Immature Granulocyte Percent A 0.2 % (0.0-0.0); Lymphocytes Absolute Auto 2.02 K/mm3 (1.10-4.50); Lymphocytes Percent Auto 35.7 % (18.0-42.0); Mean Corpuscular HGB Conc 32.9 g/dL (32.0-36.0); Mean Corpuscular Hemoglobin 32.3 pg (27.0-31.0); Mean Corpuscular Volume 98.2 fL (78.0-102.0); Mean Platelet Volume 10.4 fl (9.2-11.8); Monocytes Absolute Auto 0.51 K/mm3 (0.10-0.90); Neutrophils Percent Auto 53.3 % (50.0-70.0); Platelet Count Result 263 K/mm3 (150-420); Red Blood Count 4.43 M/mm3 (4.20-5.40); Red Cell Distribution Width 12.9 % (11.6-14.4); White Blood Count 5.7 K/mm3 (4.8-10.8)
[2022-03-15 07:33] LABS: Add Urine Microscopic? NO; Appearance Urine Clear (Clear); Bilirubin Urine Negative (Negative); Blood Urine Negative (Negative); Color Urine Light Yellow (Yellow); Glucose Urine UA Negative (Negative); Ketones Urine Negative (Negative); Leukocyte Esterase Ur Negative (Negative); Nitrate Urine Negative (Negative); Protein Urine Negative (Negative); Urobilinogen Urine 0.2 mg/dL (0.2-1.0)
[2022-03-15 07:52] LABS: Creatinine Urine 31.74 mg/dL (40-278); MALB Creatinine Ratio 44.7 mg/g (0-30); Microalbumin Urine Random 14.2 mg/L
[2022-03-15 07:54] LABS: Hemoglobin A1C 5.3 % (<5.7)
[2022-03-15 08:52] LABS: Alanine Aminotransferase 26 U/L (14-59); Albumin Level 3.5 g/dL (3.4-5.0); Alkaline Phosphatase 83 U/L (46-116); Anion Gap 5 mmol/L (8-16); Aspartate Amino Transferase 14 U/L (15-37); Bilirubin,Total 0.4 mg/dL (0.00-1.00); Blood Urea Nitrogen 10 mg/dL (7-18); Carbon Dioxide 32 mmol/L (21-32); Chloride 105 mmol/L (98-108); Cholesterol 168 mg/dL (0-200); Creatine Kinase 59 U/L (26-192); Estimated Glomerular Filt Rate > 60; Free T4 Free Thyroxine 1.15 ng/dL (0.76-1.46); Glucose 91 mg/dL (70-99); HDL Direct 76 mg/dL (40-60); LDL Cholesterol Calculated 73 mg/dL (<130); NT Pro B Type Natriuretic Pept 137 pg/mL (0-125); Osmolality Calculated 293 mOsm/kg (285-295); Potassium 3.8 mmol/L (3.5-5.1); Sodium 142 mmol/L (136-145); Thyroid Stimulating Hormone 1.74 uIU/mL (0.36-3.74); Total Protein 6.6 g/dL (6.4-8.2); Triglycerides 95 mg/dL (0-150)
[2022-03-15 08:55] LABS: Vitamin B12 > 2000 pg/mL (193-986)
[2022-03-17 14:27] LABS: Vitamin D 25 Hydroxy 31 ng/mL (30-100)
== END 2022-03-15 07:15 | disposition home or self-care (01) ==
PROVIDERS: PCP Internal Medicine; Visit Provider Internal Medicine
DX: E53.8 Deficiency of other specified B group vitamins (principal); M81.0 Age-related osteoporosis without current pathological fracture; E03.4 Atrophy of thyroid (acquired); I10 Essential (primary) hypertension; R73.01 Impaired fasting glucose; I50.9 Heart failure, unspecified
CPT/HCPCS: 36415; 80053; 80061; 81003; 82043; 82306; 82550; 82607; 83036; 83880; 84439; 84443; 85025

== ENCOUNTER 2022-03-23 10:39 | Outpatient (CLI) | payer MEDICARE, SELFPAY ==
--- NOTE | ~2022-03-23 | XR_ITS ---
XR shoulder LT min 2V DATE: 03/23/2022 11:04 INDICATION: Left shoulder pain since December. No known injury. TECHNIQUE: 4 views COMPARISON: None FINDINGS: Diffuse osteopenia. There is mild to moderate osteoarthritis at the left glenohumeral joint. No fracture, dislocation, periosteal reaction or bone destruction or abnormal soft tissue calcificati on. IMPRESSION: Mild to moderate left glenohumeral osteoarthritis Osteopenia Reviewed, dictated and finalized at location B.
== END 2022-03-23 10:40 | disposition home or self-care (01) ==
LOC: CHSIMG 10:41
PROVIDERS: PCP Internal Medicine; Visit Provider Internal Medicine
DX: M25.512 Pain in left shoulder (principal)
CPT/HCPCS: 73030

== ENCOUNTER 2022-03-25 13:37 | Outpatient (RCR) | payer MEDICARE, SELFPAY ==
--- NOTE | 2022-03-26 08:50 | PTOPEVAL ---
Thank you for referring Betzy Juarez to [facility].? The patient is scheduled to be seen for therapy? ____x/week for ___ weeks. Please review, sign, date and return this plan of care VERN. I agree with and certify that the following plan of care is medically necessary. Referring Physician Date Admitting Provider: Attending Provider: Janeth Viramontes MD Referring Provider: *PT Outpatient Evaluation Start: 03/25/22 13:56 Freq: Status: Active Protocol: Document 03/25/22 14:00 [facility] (Rec: 03/25/22 15:11 [facility] [id number]) Therapy Assessment Status Assessment Status Assessment Status Evaluation Outpatient Past Medical History Neurological History Hx Neurological Disorders No Significant History Cardiovascular History Hx Angina Yes Hx Congestive Heart Failure Yes Hx Hypercholesterolemia Yes Hx Hypertension Yes Hx Other Cardiac Disorders Yes: DR AVILA, STRESS TEST-, ORTHOSTATIC HYPOTENSION Respiratory History Hx Sleep Apnea Yes: CPAP Gastrointestinal History Hx Appendectomy Yes Hx Cholecystectomy Yes Hx Gastroesophageal Reflux Disease Yes Hx Other Gastrointestinal Disorders Yes: ERCP X3, SCARED DUCTS PER PT. LAST 04/17/20 DR FERRIS, [facility] Genitourinary History Hx Genitourinary Disorders No Significant History Musculoskeletal History Hx Arthritis Yes: RT KNEE Hx Joint Replacement Yes: LTKA 08/2019 Hx Spinal Surgery Yes: LUMBAR SURGERY 05/2014- RODS/SCREWS Hx Other Musculoskeletal Disorders Yes: RT KNEE OA Hematological History Hx Hematological Disorders No Significant History Endocrine History Hx Hypothyroidism Yes HEENT History Hx Cataracts Yes: IMPLANTS Hx Macular Degeneration Yes: BILAT Hx Other HEENT Disorders Yes: DRY EYES Integumentary History Hx Shingles Yes: 2017 Reproductive History Hx Other Reproductive Disorders Yes: ABSCESS- LT BREAST, PACKED X ~2MONTHS 10/2019 Psychosocial History Hx Anxiety Yes Hx Depression Yes Pain History History of Any Previous or Ongoing No Significant History Instance of Pain Anesthesia History Hx Anesthesia Reactions No Significant History Other History Hx Implanted Device Yes: LEFT KNEE, LOWER BACK Evaluation Information Problem Diagnosis L Shoulder Pain Onset 03/23/22 Additional Evaluation Detail Quick Dash = 56.8% Functionally Impaired Subjective Information Pt states that she
--- NOTE | 2022-03-30 13:51 | PTOPEVAL ---
Thank you for referring Betzy Juarez to [facility].? The patient is scheduled to be seen for therapy? ____x/week for ___ weeks. Please review, sign, date and return this plan of care VERN. I agree with and certify that the following plan of care is medically necessary. Referring Physician Date Admitting Provider: Attending Provider: Janeth Viramontes MD Referring Provider: *PT Outpatient Evaluation Start: 03/25/22 13:56 Freq: Status: Active Protocol: Document 03/25/22 14:00 [facility] (Rec: 03/25/22 15:11 [facility] [id number]) Therapy Assessment Status Assessment Status Assessment Status Evaluation Outpatient Past Medical History Neurological History Hx Neurological Disorders No Significant History Cardiovascular History Hx Angina Yes Hx Congestive Heart Failure Yes Hx Hypercholesterolemia Yes Hx Hypertension Yes Hx Other Cardiac Disorders Yes: DR AVILA, STRESS TEST-, ORTHOSTATIC HYPOTENSION Respiratory History Hx Sleep Apnea Yes: CPAP Gastrointestinal History Hx Appendectomy Yes Hx Cholecystectomy Yes Hx Gastroesophageal Reflux Disease Yes Hx Other Gastrointestinal Disorders Yes: ERCP X3, SCARED DUCTS PER PT. LAST 04/17/20 DR FERRIS, [facility] Genitourinary History Hx Genitourinary Disorders No Significant History Musculoskeletal History Hx Arthritis Yes: RT KNEE Hx Joint Replacement Yes: LTKA 08/2019 Hx Spinal Surgery Yes: LUMBAR SURGERY 05/2014- RODS/SCREWS Hx Other Musculoskeletal Disorders Yes: RT KNEE OA Hematological History Hx Hematological Disorders No Significant History Endocrine History Hx Hypothyroidism Yes HEENT History Hx Cataracts Yes: IMPLANTS Hx Macular Degeneration Yes: BILAT Hx Other HEENT Disorders Yes: DRY EYES Integumentary History Hx Shingles Yes: 2017 Reproductive History Hx Other Reproductive Disorders Yes: ABSCESS- LT BREAST, PACKED X ~2MONTHS 10/2019 Psychosocial History Hx Anxiety Yes Hx Depression Yes Pain History History of Any Previous or Ongoing No Significant History Instance of Pain Anesthesia History Hx Anesthesia Reactions No Significant History Other History Hx Implanted Device Yes: LEFT KNEE, LOWER BACK Evaluation Information Problem Diagnosis L Shoulder Pain Onset 03/23/22 Additional Evaluation Detail Quick Dash = 56.8% Functionally Impaired Subjective Information Pt states that she
--- NOTE | 2022-07-12 16:35 | PCPTNOTE ---
Mrs. Juarez attended a total of 3 treatment sessions from 03/25/22 to 04/01/22. She has failed to return to the clinic and will be discharged from our care. Refer to the pt. last daily note for discharge status.
== END 2022-04-01 23:59 | disposition home or self-care (01) ==
LOC: CHSPT 13:37
PROVIDERS: PCP Internal Medicine; Visit Provider Internal Medicine
DX: M25.512 Pain in left shoulder (principal)
CPT/HCPCS: 97014; 97110; 97161; G0283

== ENCOUNTER 2022-03-30 08:41 | Outpatient (CLI) | payer MEDICARE, SELFPAY ==
[2022-03-30] MEDS: ZOLEDRONIC ACID 5 MG/100 ML 100 ML 400 MG IVPB (09:10)
[2022-03-30 09:22] VITALS: BP 125/70; PULSE 72; RESP 14; TEMP 36; O2SAT 98
[2022-03-30 09:24] VITALS: BMI 27.3
--- NOTE | 2022-03-30 09:27 | PC.NURSE ---
Patient here for IV Reclast infusion. Education given. All concerns answered. IV Reclast administered. See MAR. Tolerated well. Safe exit of hospital.
== END 2022-03-30 08:42 | disposition home or self-care (01) ==
LOC: CHSTREATRM 08:44
PROVIDERS: PCP Internal Medicine; Visit Provider Internal Medicine
DX: M81.0 Age-related osteoporosis without current pathological fracture (principal)
CPT/HCPCS: 96374; J3489

== ENCOUNTER 2022-04-10 07:06 | Outpatient (CLI) | payer MEDICARE, SELFPAY ==
--- NOTE | ~2022-04-10 | MR_ITS ---
EXAMINATION: MR humerus LT wo con DATE: 04/10/2022 10:15 INDICATION: Torn biceps tendon TECHNIQUE: Magnetic resonance imaging (MRI) of the left humerus was performed without intravenous con trast. Sequences included axial, sagittal and coronal T1-weighted FSE and fluid sensitive FSE STIR. COMPARISON: None. FINDINGS: Full-thickness tear of the long head of the biceps tendon beginning at the intra-articular portion of the tendon which becomes progressively attenuated with frayed appearance at the level of the bicipit al groove and which extends approximately 7 cm distally to the myotendinous junction. Some of this di stance likely represents some distal retraction however quantitation the separation is limited by the irregular poorly defined tear margins. There is feathery muscular edema surrounding some T1 hyperint ense hematoma at the torn myotendinous junction. The more distal muscle belly appears normal as does the distal biceps brachii tendon. Remaining musculature of the left upper arm appears normal as do th e visualized portions of the remaining associated tendons. Mildly heterogeneous marrow signal with sm all amount of red marrow in the humerus which remains T1 hyperintense to skeletal muscle. No left gle nohumeral or elbow joint effusions. Small amount of fluid at the subacromial/subdeltoid bursa consist ent with mild bursitis. IMPRESSION: 1. Long somewhat ragged full-thickness tear of the long head biceps tendon tear beginning at the extr a articular portion of the tendon and extending to the proximal myotendinous junction. Reviewed, dictated and finalized at location B. IMPRESSION: 1. Long somewhat ragged full-thickness tear of the long head biceps tendon tear beginning at the extra articular portion of the tendon and extending to the pr oximal myotendinous junction.
== END 2022-04-10 07:07 | disposition home or self-care (01) ==
LOC: CHSIMG 07:08
PROVIDERS: PCP Internal Medicine; Visit Provider Internal Medicine
DX: S46.212A Strain of muscle, fascia and tendon of other parts of biceps, left arm, initial encounter (principal)
CPT/HCPCS: 73218

== ENCOUNTER 2022-09-16 07:10 | Outpatient (CLI) | payer MEDICARE, SELFPAY ==
[2022-09-16 07:27] LABS: Appearance Urine Clear (Clear); Basophils Absolute Auto 0.02 K/mm3 (0.00-0.10); Basophils Percent Auto 0.3 % (0.0-1.0); Bilirubin Urine Negative (Negative); Blood Urine Negative (Negative); Eosinophils Absolute Auto 0.11 K/mm3 (0.02-0.50); Eosinophils Percent Auto 1.7 % (1.0-6.0); Glucose Urine UA Negative (Negative); Hematocrit 41.2 % (35.0-42.0); Hemoglobin 13.8 g/dL (11.7-13.8); Immature Granulocyte Absolute 0.02 K/mm3 (0.00-0.00); Immature Granulocyte Percent A 0.3 % (0.0-0.0); Ketones Urine Negative (Negative); Leukocyte Esterase Ur Negative (Negative); Lymphocytes Absolute Auto 2.27 K/mm3 (1.10-4.50); Lymphocytes Percent Auto 35.5 % (18.0-42.0); Mean Corpuscular HGB Conc 33.5 g/dL (32.0-36.0); Mean Corpuscular Hemoglobin 33.2 pg (27.0-31.0); Mean Platelet Volume 10.2 fl (9.2-11.8); Monocytes Percent Auto 9.4 % (2.0-11.0); Neutrophils Absolute Auto 3.4 K/mm3 (1.7-7.2); Neutrophils Percent Auto 52.8 % (50.0-70.0); Nitrate Urine Negative (Negative); Platelet Count Result 250 K/mm3 (150-420); Protein Urine Negative (Negative); Red Blood Count 4.16 M/mm3 (4.20-5.40); Red Cell Distribution Width 13.1 % (11.6-14.4); Specific Grav Ur <= 1.005 (1.010-1.020); White Blood Count 6.4 K/mm3 (4.8-10.8); pH Urine 6.5 (5.0-8.0)
[2022-09-16 07:31] LABS: Add Urine Microscopic? NO; Color Urine Light Yellow (Yellow)
[2022-09-16 07:37] LABS: Hemoglobin A1C 5.5 % (<5.7)
[2022-09-16 08:13] LABS: Alanine Aminotransferase 27 U/L (14-59); Albumin Level 3.6 g/dL (3.4-5.0); Alkaline Phosphatase 57 U/L (46-116); Anion Gap 5 mmol/L (8-16); Aspartate Amino Transferase 13 U/L (15-37); Bilirubin,Total 0.5 mg/dL (0.00-1.00); Blood Urea Nitrogen 10 mg/dL (7-18); Calcium 8.7 mg/dL (8.5-10.1); Carbon Dioxide 32 mmol/L (21-32); Chloride 106 mmol/L (98-108); Cholesterol 164 mg/dL (0-200); Creatine Kinase 80 U/L (26-192); Estimated Glomerular Filt Rate > 60; Free T4 Free Thyroxine 1.24 ng/dL (0.76-1.46); Glucose 95 mg/dL (70-99); HDL Direct 69 mg/dL (40-60); LDL Cholesterol Calculated 72 mg/dL (<130); NT Pro B Type Natriuretic Pept 97 pg/mL (0-450); Osmolality Calculated 295 mOsm/kg (285-295); Sodium 143 mmol/L (136-145); Thyroid Stimulating Hormone 2.14 uIU/mL (0.36-3.74); Total Protein 7.1 g/dL (6.4-8.2); Triglycerides 115 mg/dL (0-150)
[2022-09-19 19:16] LABS: Vitamin D 25 Hydroxy 39 ng/mL (30-100)
== END 2022-09-16 07:11 | disposition home or self-care (01) ==
LOC: CHSLAB 07:12
PROVIDERS: PCP Internal Medicine; Visit Provider Internal Medicine
DX: E03.4 Atrophy of thyroid (acquired) (principal); E78.2 Mixed hyperlipidemia; I10 Essential (primary) hypertension; E53.8 Deficiency of other specified B group vitamins; I25.10 Atherosclerotic heart disease of native coronary artery without angina pectoris; R73.01 Impaired fasting glucose; M81.0 Age-related osteoporosis without current pathological fracture; I50.9 Heart failure, unspecified
CPT/HCPCS: 36415; 80053; 80061; 81003; 82306; 82550; 83036; 83880; 84439; 84443; 84481; 85025

== ENCOUNTER 2022-09-24 14:31 | Outpatient (CLI) | payer MEDICARE, SELFPAY ==
[2022-09-24 15:23] LABS: NT Pro B Type Natriuretic Pept 217 pg/mL (0-450)
== END 2022-09-24 14:32 | disposition home or self-care (01) ==
LOC: CHSLAB 14:33
PROVIDERS: PCP Internal Medicine; Visit Provider Internal Medicine Cardiovascular Disease
DX: R60.0 Localized edema (principal); I10 Essential (primary) hypertension; R06.09 Other forms of dyspnea
CPT/HCPCS: 36415; 83880

== ENCOUNTER 2022-11-09 08:10 | Outpatient (CLI) | payer MEDICARE, SELFPAY ==
[2022-11-09 08:52] LABS: Anion Gap 7 mmol/L (8-16); Blood Urea Nitrogen 16 mg/dL (7-18); Calcium 8.8 mg/dL (8.5-10.1); Carbon Dioxide 34 mmol/L (21-32); Chloride 99 mmol/L (98-108); Estimated Glomerular Filt Rate > 60; Glucose 98 mg/dL (70-99); Osmolality Calculated 291 mOsm/kg (285-295); Potassium 4.2 mmol/L (3.5-5.1); Sodium 140 mmol/L (136-145)
== END 2022-11-09 08:11 | disposition home or self-care (01) ==
PROVIDERS: PCP Internal Medicine; Visit Provider Internal Medicine
DX: I10 Essential (primary) hypertension (principal)
CPT/HCPCS: 36415; 80048

== ENCOUNTER 2023-01-20 10:07 | Outpatient (CLI) | payer MEDICARE, SELFPAY ==
--- NOTE | ~2023-01-20 | XR_ITS ---
Right Shoulder Technique: AP and scapular Y views were obtained. Clinical History: Injury Findings: No fracture or dislocation is seen. Osseous alignment is anatomic. The glenohumeral and acr omioclavicular joint spaces are preserved. Soft tissues are unremarkable. Impression: Unremarkable right shoulder radiographs. Reviewed, dictated and finalized at [facility]. T DOCTOR Impression: Unremarkable right shoulder radiographs.
== END 2023-01-20 10:08 | disposition home or self-care (01) ==
LOC: CHSIMG 10:09
PROVIDERS: PCP Internal Medicine; Visit Provider Internal Medicine
DX: S49.91XA Unspecified injury of right shoulder and upper arm, initial encounter (principal)
CPT/HCPCS: 73030

== ENCOUNTER 2023-01-22 06:52 | Outpatient (CLI) | payer MEDICARE, SELFPAY ==
--- NOTE | ~2023-01-22 | MR_ITS ---
MRI of the right shoulder Technique: Axial proton-density fat-sat images, coronal proton density fat-sat and T2 fat-sat images, and sagittal T1-weighted and T2 fat-sat images were acquired. Clinical History: Pain Findings: Exam mildly degraded by motion artifact. There is mild AC joint degenerative change. Coraco clavicular, coracoacromial, coracohumeral ligaments appear intact. There is probable full-thickness tearing involving nearly entire supraspinatus tendon, with fluid-carolina led gap measuring up to approximately 2.3 x 2.5 cm in extent. There is advanced infraspinatus tendino sis. There is moderate subscapularis tendinosis without definite tear. Tendon of long head of the bic eps is intact. No definite labral tear identified. There is probable thickening of the inferior glenohumeral ligament. There is fluid distention of the subacromial/subdeltoid bursa. No significant degenerative change at the glenohumeral joint identified . No muscle atrophy or edema evident. Impression: Full-thickness tear involving nearly entire supraspinatus tendon, as detailed above. Advanced tendinosis of the infraspinatus and subscapularis tendons. Mild AC joint degenerative change. Reviewed, dictated and finalized at location . 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 Advanced tendinosis of the infraspinatus and subscapularis tendons. Mild AC joint degenerative change.
== END 2023-01-22 06:53 | disposition home or self-care (01) ==
PROVIDERS: PCP Internal Medicine; Visit Provider Internal Medicine
DX: S49.91XA Unspecified injury of right shoulder and upper arm, initial encounter (principal); M75.101 Unspecified rotator cuff tear or rupture of right shoulder, not specified as traumatic; M77.8 Other enthesopathies, not elsewhere classified
CPT/HCPCS: 73221

== ENCOUNTER 2023-02-07 08:03 | Outpatient (RCR) | payer MEDICARE, SELFPAY ==
--- NOTE | 2023-02-07 09:01 | PTOPEVAL1 ---
Assessment and note entered by Kim Bashir DPT Evaluation Information Assessment Status Evaluation Diagnosis R shoulder pain Onset 01/26/23 Subjective Information Patient reports she was coming into the house and tripped as she was coming in and fell with her R arm outstretched. Full-thickness tear involving nearly entire supraspinatus tendon. Patient reports that MD wants to try conservative treatment. She reports right away she was using a sling but since she saw the doctor she has not been in the sling and has been using it since. She reports that since the fall she has seem improvements. She has difficulty with carrying heavy objects, sleeping and reaching behind her. Reported Pain Level Pain Score 7: Self Report Assessment PT Clinical Summary Patient is a 77 year old female who presents to PT with R RTC tear following a fall on 01/26/23. Patient demonstrates decreased AROM of the R shoulder, decreased R shoulder strength and increased pain impairing her ability to sleep, lift and reach behind her for ADLs and house hold tasks. She would benefit from skilled PT to address impairments and return to PLOF. Plan of Care Interventions Electrical Stimulation,Hot Pack/Cold Pack,Manual Therapy,Neuro Re-education,Patient/Caregiver Educati,Therapeutic Activities,Therapeutic Exercise PT Services Indicated Yes Treatment Frequency and 2x weekly for 8 visits Duration These treatments will address the objective and functional deficits as defined above. The patient will be advanced safely and appropriately in order for the patient to progress towards his/her prior level of function. Additional exercises will be introduced and as well as a comprehensive home exercise program upon discharge, if needed, ?to ensure carryover of functional gains achieved in the clinic. This treatment plan has been reviewed and agreement upon by the patient.
--- NOTE | 2023-03-04 12:02 | PTOPDC ---
Assessment and note entered by Kim Bashir DPT Evaluation Information Assessment Status Re-evaluation Diagnosis R shoulder pain Onset 01/26/23 Subjective Information Patient reports improvement since start of PT. She reports that she has been able to sleep with no increase in pain. She also reports she has been able to reach behind her back with no increase in pain. She reports she is independent with HEP. Reported Pain Level Pain Score 0: Self Report Assessment PT Clinical Summary Patient was seen for 8 visits of skilled PT with focus on R shoulder strength and ROM. She made good progress with improvements in both areas. She reports improved function at home and decreased pain levels when sleeping. She is independent with HPE and will be discharged at this time. Plan of Care PT Services Indicated No
== END 2023-03-04 14:02 | disposition home or self-care (01) ==
LOC: CHSPT 08:03
PROVIDERS: PCP Internal Medicine; Visit Provider Orthopaedic Surgery
DX: S46.011D Strain of muscle(s) and tendon(s) of the rotator cuff of right shoulder, subsequent encounter (principal); W19.XXXD Unspecified fall, subsequent encounter
CPT/HCPCS: 97014; 97110; 97140; 97161; G0283

== ENCOUNTER 2023-03-17 07:27 | Outpatient (CLI) | payer MEDICARE, SELFPAY ==
--- NOTE | ~2023-03-17 | MM_ITS ---
EXAMINATION: MM screening danette BI w mauro HISTORY: Screening mammogram TECHNIQUE: Craniocaudal and mediolateral oblique 3-D tomosynthesis images were obtained and synthetic 2-D images were generated. CAD analysis was submitted and interpreted. COMPARISON: 03/03/2022, 03/09/2021 BREAST PARENCHYMAL COMPOSITION: The breasts are almost entirely fatty. FINDINGS: No suspicious mass, calcification, or architectural distortion are identified in either ariane ast to suggest malignancy. There has been no suspicious interval change. IMPRESSION: 1. No mammographic evidence of malignancy. 2. Recommend routine screening mammography in one year. BI-RADS Category 1: Negative Reviewed, dictated and finalized at location A.
[2023-03-17 07:40] LABS: Basophils Absolute Auto 0.02 K/mm3 (0.00-0.10); Basophils Percent Auto 0.4 % (0.0-1.0); Eosinophils Absolute Auto 0.05 K/mm3 (0.02-0.50); Eosinophils Percent Auto 0.9 % (1.0-6.0); Hematocrit 38.1 % (35.0-42.0); Hemoglobin 12.8 g/dL (11.7-13.8); Immature Granulocyte Absolute 0.01 K/mm3 (0.00-0.00); Immature Granulocyte Percent A 0.2 % (0.0-0.0); Lymphocytes Absolute Auto 1.95 K/mm3 (1.10-4.50); Lymphocytes Percent Auto 34.2 % (18.0-42.0); Mean Corpuscular HGB Conc 33.6 g/dL (32.0-36.0); Mean Corpuscular Hemoglobin 33.1 pg (27.0-31.0); Mean Corpuscular Volume 98.4 fL (78.0-102.0); Mean Platelet Volume 9.3 fl (9.2-11.8); Monocytes Absolute Auto 0.59 K/mm3 (0.10-0.90); Monocytes Percent Auto 10.3 % (2.0-11.0); Neutrophils Absolute Auto 3.1 K/mm3 (1.7-7.2); Platelet Count Result 326 K/mm3 (150-420); Red Blood Count 3.87 M/mm3 (4.20-5.40); Red Cell Distribution Width 12.5 % (11.6-14.4); White Blood Count 5.7 K/mm3 (4.8-10.8)
[2023-03-17 07:48] LABS: Appearance Urine Clear (Clear); Bilirubin Urine Negative (Negative); Blood Urine Negative (Negative); Color Urine Light Yellow (Yellow); Glucose Urine UA Negative (Negative); Ketones Urine Negative (Negative); Leukocyte Esterase Ur Negative LEU/UL (Negative); Nitrate Urine Negative (Negative); Protein Urine Negative (Negative); Urobilinogen Urine 0.2 mg/dL (0.2-1.0)
[2023-03-17 07:57] LABS: Hemoglobin A1C 5.3 % (<5.7)
[2023-03-17 08:17] LABS: Add Urine Microscopic? NO
[2023-03-17 08:27] LABS: Alanine Aminotransferase 28 U/L (14-59); Albumin Level 3.4 g/dL (3.4-5.0); Alkaline Phosphatase 57 U/L (46-116); Anion Gap 7 mmol/L (8-16); Aspartate Amino Transferase 17 U/L (15-37); Bilirubin,Total 0.4 mg/dL (0.00-1.00); Blood Urea Nitrogen 13 mg/dL (7-18); Carbon Dioxide 32 mmol/L (21-32); Chloride 100 mmol/L (98-108); Cholesterol 155 mg/dL (0-200); Creatine Kinase 101 U/L (26-192); Estimated Glomerular Filt Rate > 60; Free T3 2.44 pg/mL (2.18-3.98); Free T4 Free Thyroxine 1.49 ng/dL (0.76-1.46); Glucose 105 mg/dL (70-99); HDL Direct 62 mg/dL (40-60); LDL Cholesterol Calculated 75 mg/dL (<130); NT Pro B Type Natriuretic Pept 193 pg/mL (0-450); Osmolality Calculated 288 mOsm/kg (285-295); Potassium 4.7 mmol/L (3.5-5.1); Sodium 139 mmol/L (136-145); Thyroid Stimulating Hormone 0.38 uIU/mL (0.36-3.74); Total Protein 6.7 g/dL (6.4-8.2); Triglycerides 92 mg/dL (0-150)
== END 2023-03-17 07:28 | disposition home or self-care (01) ==
PROVIDERS: PCP Internal Medicine; Visit Provider Internal Medicine
DX: Z12.31 Encounter for screening mammogram for malignant neoplasm of breast (principal); E78.2 Mixed hyperlipidemia; I10 Essential (primary) hypertension; E03.4 Atrophy of thyroid (acquired); R73.01 Impaired fasting glucose; N39.0 Urinary tract infection, site not specified; I25.10 Atherosclerotic heart disease of native coronary artery without angina pectoris; R06.09 Other forms of dyspnea
CPT/HCPCS: 36415; 77063; 77067; 80053; 80061; 81003; 82550; 83036; 83880; 84439; 84443; 84481; 85025

== ENCOUNTER 2023-04-04 08:42 | Outpatient (CLI) | payer MEDICARE, SELFPAY ==
[2023-04-04 08:51] VITALS: BMI 27.3
[2023-04-04] MEDS: ZOLEDRONIC ACID 5 MG/100 ML 100 ML 400 MG IVPB (09:05)
[2023-04-04 09:10] VITALS: BP 135/57; PULSE 70; RESP 14; TEMP 36.4; O2SAT 98
--- NOTE | 2023-04-04 09:25 | PC.NURSE ---
Patient here for yearly IV Reclast. Education given. No concerns voiced. Reports did well on it last year. IV Reclast administered. SEE MAR. Tolerated well. Safe exit of hospital per self /ambulatory.
== END 2023-04-04 08:43 | disposition home or self-care (01) ==
PROVIDERS: PCP Internal Medicine; Visit Provider Internal Medicine
DX: M81.0 Age-related osteoporosis without current pathological fracture (principal)
CPT/HCPCS: 96365; 96374; J3489

== ENCOUNTER 2023-04-05 15:44 | Emergency (ER) | payer MEDICARE, SELFPAY ==
--- NOTE | ~2023-04-05 | XR_ITS ---
EXAM: XR wrist LT min 3V DATE: 04/05/2023 18:59 HISTORY: STATUS POST FALL ONTO LEFT ARM. BILATERAL WRIST PAIN. . COMPARISON: None available. FINDINGS: Decreased mineralization. No fracture or dislocation. No lytic or blastic lesion. Moderate degenerative change at the triscaphe joint and trapeziometacarpal joint. No erosion or periosteal ch cande. Soft tissues within normal limits. IMPRESSION: No acute osseous finding in the left wrist. Reviewed, dictated and finalized at location K.
--- NOTE | ~2023-04-05 | XR_ITS ---
EXAM: XR shoulder LT min 2V DATE: 04/05/2023 18:57 HISTORY: STATUS POST FALL ONTO LEFT ARM. ACUTE PROXIMAL L ARM PAIN. . COMPARISON: 03/23/2022. FINDINGS: Decreased mineralization. Comminuted fracture of the proximal humeral metaphysis, with pos sible involvement of the greater tuberosity, and one half shaft width anterior displacement and mild posterior angulation. No lytic or blastic lesion. Mild degenerative AC joint and glenohumeral joint c hange. No erosion or periosteal change. Dependent atelectasis in the left lung base. IMPRESSION: Comminuted, mildly displaced and angulated proximal left humeral fracture. Reviewed, dictated and finalized at location K. IMPRESSION: Comminuted, mildly displaced and angulated proximal left humeral fr acture.
--- NOTE | ~2023-04-05 | XR_ITS ---
EXAM: XR elbow LT min 3V DATE: 04/05/2023 18:58 HISTORY: STATUS POST FALL ONTO LEFT ARM; POSTERIOR ELBOW PAIN. . COMPARISON: None available. FINDINGS: Lateral view limited by hyperflexion and exclusion the posterior soft tissues. Decreased m ineralization. No fracture or dislocation. No lytic or blastic lesion. Joint spaces are maintained. N o erosion or periosteal change. Soft tissues within normal limits. IMPRESSION: No acute osseous finding the left elbow. Reviewed, dictated and finalized at location K.
[2023-04-05 15:45] VITALS: BP 132/55; PULSE 98; RESP 18; TEMP 37.2; O2SAT 80
--- NOTE | 2023-04-05 15:50 | ED.FALL ---
HPI - Fall General Chief Complaint: Extremity Injury, Upper Stated Complaint: left shoulder injury Time Seen by Provider: 04/05/23 15:50 Source: patient, EMS and RN notes reviewed Mode of arrival: EMS Limitations: no limitations History of Present Illness MD complaint: fall Onset (ago): minute(s) (30) Fall from: standing Fall witnessed: no Place fall occurred: home ( Outdoors) Loss of consciousness: none Prolonged down time: no Symptoms prior to fall: none Context: tripped/slipped Location of injury - extremities: Left: shoulder, arm and forearm Severity: severe Quality: sharp, stabbing and aching Associated symptoms (after fall): denies Related Data Home Medications Medication Instructions Recorded Confirmed famotidine 20 mg tablet 20 mg PO DAILY 10/26/19 04/05/23 fluticasone propionate 50 2 inhalation inhalation HS PRN 10/26/19 04/05/23 mcg/actuation blister powder for Congestion inhalation furosemide 40 mg tablet 40 mg PO QAM 10/26/19 04/05/23 ipratropium bromide 42 mcg (0.06 2 spray intranasal BID PRN 10/26/19 04/05/23 %) nasal spray Congestion levothyroxine 200 mcg tablet 200 mcg PO QAM 10/26/19 04/05/23 lisinopril 10 mg tablet 10 mg PO DAILY 10/26/19 04/05/23 pantoprazole 40 mg tablet,delayed 40 mg PO QAM 10/26/19 04/05/23 release paroxetine HCl 20 mg tablet 40 mg PO QAM 10/26/19 04/05/23 pravastatin 40 mg tablet 40 mg PO HS 10/26/19 04/05/23 (Pravachol) ranolazine 1,000 mg 1,000 mg PO Q12H 10/26/19 04/05/23 tablet,extended release,12 hr (Ranexa) cyanocobalamin (vitamin B-12) 500 500 mcg PO DAILY 12/05/20 04/05/23 mcg lozenges (Vitamin B-12) isosorbide mononitrate 30 mg 90 mg PO QAM 12/05/20 04/05/23 tablet,extended release 24 hr flaxseed oil 1,000 mg capsule 1,000 mg PO DAILY 03/25/21 04/05/23 metoprolol tartrate 25 mg tablet 25 mg PO BID 03/25/21 04/05/23 vit C 250 mg-vit E 200 unit-zinc 1 tablet PO BID 03/25/21 04/05/23 12.5 mg-copper 1 [id number] tablet (ICaps AREDS2 (copper citrate)) losartan 100 mg tablet 100 mg PO DAILY 04/05/23 04/05/23 Allergies Allergy/AdvReac Type Severity Reaction Status Date / Time bacitracin Allergy Intermediate RASH Verified 04/05/23 15:56 adhesive tape Allergy Mild rash Verified 04/05/23 15:56 latex Allergy Mild RASH WITH Verified 04/05/23 15:56 BLISTERS neomycin Allergy redness/irr Verified 04/05/23 15:56 [From Neosporin itation ([id number])] polymyxin B Allergy redness/irr Verified 04/05/23 15:56 [From Neosporin iation ([id number])] Review of Systems Review of Systems: All systems reviewed & are unremarkable except as noted in HPI and below PMFSH Past Medical History Medical History Angina pectoris Anxiety Arthritis Congestive heart failure the patient stated that she was diagnosed with CHF but he did not see any diagnosis under cardiology note. She is on diuretics. GERD (gastroesophageal reflux disease) High cholesterol HTN (hypertension) Hypothyroidism Thyroid disease Wears glasses Surgical History Surgical History H/O colonoscopy H/O total hysterectomy History of back surgery History of bladder surgery History of cataract surgery History of ERCP x3. She had stents placed which were subsequently removed in some type of the duct. Not sure if it is a common bile duct pancreatic duct or the liver. History of total knee replacement Left total knee arthroplasty Hx laparoscopic cholecystectomy S/P colonoscopic polypectomy S/P total knee arthroplasty right total knee arthroplasty today by Dr. Pritchard 12/15/2020 Family History Family History Father COPD (chronic obstructive pulmonary disease) Heart disease Malignant neoplasm of prostate Hypertension Mother Heart disease Alzheimer's dementia Acute myocardial infarction
[2023-04-05 16:53] VITALS: PULSE 80; O2SAT 98
[2023-04-05] MEDS: HYDROmorphone HCL INJ (*CRX) 2 MG/ML VIAL 1 MG IV PUSH (17:15)
[2023-04-05] MEDS: HYDROmorphone HCL INJ (*CRX) 2 MG/ML VIAL (17:15)
[2023-04-05 18:20] VITALS: BP 112/80; PULSE 72; RESP 16; O2SAT 97
--- NOTE | 2023-04-05 18:21 | PC.NURSE ---
Limonetik went down. see paper charting.
--- NOTE | 2023-04-05 18:42 | PC.NURSE ---
PT REPORTS MALONE HAS IMPROVED, HOWEVER LEFT ARM IS BACK TO 10/10 PAIN. ERP NOTIFIED. WILL AWAIT FURTHER ORDERS.
[2023-04-05] MEDS: HYDROcodone/acetaminophen (*CRX) 5-325 MG TABLET 1 TAB PO (19:37)
[2023-04-05 19:51] VITALS: BP 123/62; PULSE 77; RESP 16; O2SAT 98
== END 2023-04-05 19:52 | disposition home or self-care (01) ==
PROVIDERS: Emergency Provider Emergency Medicine; PCP Internal Medicine
DX: S42.292A Other displaced fracture of upper end of left humerus, initial encounter for closed fracture (principal); W19.XXXA Unspecified fall, initial encounter; I10 Essential (primary) hypertension; K21.9 Gastro-esophageal reflux disease without esophagitis; F41.9 Anxiety disorder, unspecified; E78.00 Pure hypercholesterolemia, unspecified; E03.9 Hypothyroidism, unspecified; Z79.51 Long term (current) use of inhaled steroids
CPT/HCPCS: 73030; 73080; 73110; 96374; 99284; A4565; A9270; J1170

== ENCOUNTER 2023-04-18 08:53 | Outpatient (CLI) | payer MEDICARE, SELFPAY ==
[2023-04-21 17:45] LABS: Vitamin D 25 Hydroxy 36 ng/mL (30-100)
== END 2023-04-18 08:54 | disposition home or self-care (01) ==
LOC: CHSLAB 08:54
PROVIDERS: PCP Internal Medicine; Visit Provider Orthopaedic Surgery
DX: E55.9 Vitamin D deficiency, unspecified (principal)
CPT/HCPCS: 36415; 82306

== ENCOUNTER 2023-05-16 14:49 | Outpatient (RCR) | payer MEDICARE, SELFPAY ==
--- NOTE | 2023-05-16 15:49 | OPREHPOC ---
Outpatient Therapy Plan of Care This is a Multidisciplinary Plan of Care that may contain components documented by all disciplines (PT, OT, and ST.) PT Problem 1 PT Problem #1 Knowledge Deficit PT Goal 1 Goal Patient to demonstrate independence with HEP Target Visit 6 PT Problem 2 PT Problem #2 Pain PT Goal 1 Goal 1. Patient to report highest pain at 2/10 2. Patient to report no sleep disturbance due to pain Target Visit 6 PT Problem 3 PT Problem #3 Impaired Range of Motion PT Goal 1 Goal Patient to demonstrate 140 degrees of L shoulder flexion to return to kitchen cooking and cleaning at PLOF Target Visit 6
--- NOTE | 2023-05-16 15:49 | PTOPEVAL1 ---
Assessment and note entered by Kim Bashir DPT Evaluation Information Assessment Status Evaluation Diagnosis L shoulder pain Onset 04/05/23 Subjective Information Patient reports on April 05 she was out gardening and tripped on a tractor bucket and fell on her L side. She came to the ER and had x-rays which showed a fractured humerus. Since the fall she was in a sling and just got out of that on 05/11/23. She is able to move the arm but is not able to lift greater than 1#. Patient has difficulty with dressing, cooking, cleaning and laundry. She returns to MD on 06/03. Reported Pain Level Pain Score 4: Self Report Assessment PT Clinical Summary Patient is a 77 year old female who presents to PT with L shoulder pain s/p L proximal humerus fracture. She demonstrate decreased L shoulder ROM , decreased L shoulder strength and increased pain impairing her ability to sleep, dress, cook and clean. She would benefit from skilled PT to address impairments and return to OF. Plan of Care Interventions Electrical Stimulation,Hot Pack/Cold Pack,Manual Therapy,Neuro Re-education,Patient/Caregiver Educati,Therapeutic Activities,Therapeutic Exercise PT Services Indicated Yes Treatment Frequency and 2x weekly for 6 weeks Duration These treatments will address the objective and functional deficits as defined above. The patient will be advanced safely and appropriately in order for the patient to progress towards his/her prior level of function. Additional exercises will be introduced and as well as a comprehensive home exercise program upon discharge, if needed, ?to ensure carryover of functional gains achieved in the clinic. This treatment plan has been reviewed and agreement upon by the patient.
== END 2023-06-07 09:37 | disposition home or self-care (01) ==
LOC: CHSPT 14:49
PROVIDERS: Visit Provider Orthopaedic Surgery
DX: S42.202D Unspecified fracture of upper end of left humerus, subsequent encounter for fracture with routine healing (principal)
CPT/HCPCS: 97014; 97110; 97140; 97161; G0283

== ENCOUNTER 2023-09-21 09:05 | Outpatient (CLI) | payer MEDICARE, SELFPAY ==
--- NOTE | ~2023-09-21 | CT_ITS ---
EXAMINATION: CT brain wo con DATE: 09/21/2023 11:46 INDICATION: Frontal head injury with nasal abrasions and swelling at the forehead, left greater than right. TECHNIQUE: Computed tomography (CT) of the head was performed without intravenous contrast. Sagittal and coronal reconstructions were performed. The mA was adjusted according to patient size. Iterative reconstruction technique was employed. The dose-length product was 605.33 mGy-cm. COMPARISON: Renal MR dated 04/12/2020 FINDINGS: Small anterior left frontal scalp hematoma. No fracture. No acute intracranial hemorrhage, acute infa rction or abnormal extra axial fluid collection. Symmetric prominence of the sulci consistent with mi ld age-appropriate diffuse cerebral volume loss. Ventricles are normal and symmetric. No mass/mass e ffect. Intracranial calcified cerebral atherosclerosis is noted. The orbits, paranasal sinuses and ma stoid air cells are normal. IMPRESSION: 1. Normal aging brain. No fracture or acute intracranial process. Reviewed, dictated and finalized at location A. 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
--- NOTE | ~2023-09-21 | XR_ITS ---
EXAMINATION: XR facial bones min 3V INDICATION: Facial pain and injury TECHNIQUE: Five views of the facial bones are obtained COMPARISON: None available FINDINGS: No facial fracture is identified. The paranasal sinuses appear clear. There is severe cervi flori spondylosis. IMPRESSION: 1. No facial fracture identified. Reviewed, dictated and finalized at location B. 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
[2023-09-21 09:24] LABS: Basophils Absolute Auto 0.02 K/mm3 (0.00-0.10); Basophils Percent Auto 0.4 % (0.0-1.0); Eosinophils Absolute Auto 0.09 K/mm3 (0.02-0.50); Eosinophils Percent Auto 1.9 % (1.0-6.0); Hematocrit 41.6 % (35.0-42.0); Hemoglobin 13.7 g/dL (11.7-13.8); Immature Granulocyte Absolute 0.01 K/mm3 (0.00-0.00); Immature Granulocyte Percent A 0.2 % (0.0-0.0); Lymphocytes Absolute Auto 1.86 K/mm3 (1.10-4.50); Mean Corpuscular HGB Conc 32.9 g/dL (32.0-36.0); Mean Corpuscular Hemoglobin 32.1 pg (27.0-31.0); Mean Corpuscular Volume 97.4 fL (78.0-102.0); Mean Platelet Volume 9.6 fl (9.2-11.8); Monocytes Absolute Auto 0.41 K/mm3 (0.10-0.90); Monocytes Percent Auto 8.6 % (2.0-11.0); Neutrophils Absolute Auto 2.4 K/mm3 (1.7-7.2); Neutrophils Percent Auto 49.9 % (50.0-70.0); Platelet Count Result 272 K/mm3 (150-420); Red Blood Count 4.27 M/mm3 (4.20-5.40); Red Cell Distribution Width 12.2 % (11.6-14.4); White Blood Count 4.8 K/mm3 (4.8-10.8)
[2023-09-21 10:26] LABS: Appearance Urine Clear (Clear); Bilirubin Urine Negative (Negative); Blood Urine Negative (Negative); Color Urine Light Yellow (Yellow); Glucose Urine UA Negative (Negative); Ketones Urine Negative (Negative); Leukocyte Esterase Ur Negative (Negative); Nitrate Urine Negative (Negative); Protein Urine Negative (Negative)
[2023-09-21 10:30] LABS: Add Urine Microscopic? NO
[2023-09-21 10:32] LABS: Alanine Aminotransferase 29 U/L (14-59); Albumin Level 3.5 g/dL (3.4-5.0); Alkaline Phosphatase 70 U/L (46-116); Anion Gap 7 mmol/L (8-16); Aspartate Amino Transferase 14 U/L (15-37); Bilirubin,Total 0.4 mg/dL (0.00-1.00); Blood Urea Nitrogen 12 mg/dL (7-18); Calcium 9.5 mg/dL (8.5-10.1); Carbon Dioxide 32 mmol/L (21-32); Chloride 97 mmol/L (98-108); Cholesterol 162 mg/dL (0-200); Creatine Kinase 92 U/L (26-192); Estimated Glomerular Filt Rate > 60; Free T3 1.95 pg/mL (2.18-3.98); Free T4 Free Thyroxine 0.94 ng/dL (0.76-1.46); Glucose 98 mg/dL (70-99); HDL Direct 66 mg/dL (40-60); LDL Cholesterol Calculated 76 mg/dL (<130); NT Pro B Type Natriuretic Pept 101 pg/mL (0-450); Osmolality Calculated 281 mOsm/kg (285-295); Potassium 4.8 mmol/L (3.5-5.1); Sodium 136 mmol/L (136-145); Thyroid Stimulating Hormone 6.52 uIU/mL (0.36-3.74); Total Protein 6.5 g/dL (6.4-8.2); Triglycerides 101 mg/dL (0-150); Vitamin B12 1577 pg/mL (193-986)
== END 2023-09-21 09:06 | disposition home or self-care (01) ==
PROVIDERS: PCP Internal Medicine; Visit Provider Internal Medicine Cardiovascular Disease
DX: E78.2 Mixed hyperlipidemia (principal); I10 Essential (primary) hypertension; R73.01 Impaired fasting glucose; E03.4 Atrophy of thyroid (acquired); I25.10 Atherosclerotic heart disease of native coronary artery without angina pectoris; E53.8 Deficiency of other specified B group vitamins; S09.90XA Unspecified injury of head, initial encounter; I50.9 Heart failure, unspecified
CPT/HCPCS: 36415; 70150; 70450; 80053; 80061; 81003; 82550; 82607; 83036; 83880; 84439; 84443; 84481; 85025

== ENCOUNTER 2024-03-09 07:37 | Outpatient (CLI) | payer MEDICARE, SELFPAY ==
[2024-03-09 08:28] LABS: Anion Gap 5 mmol/L (4-12); Blood Urea Nitrogen 14 mg/dL (7-18); Calcium 9.4 mg/dL (8.5-10.1); Carbon Dioxide 34 mmol/L (21-32); Chloride 100 mmol/L (98-108); Estimated Glomerular Filt Rate > 60; Glucose 110 mg/dL (70-99); Osmolality Calculated 289 mOsm/kg (285-295); Potassium 4.1 mmol/L (3.5-5.1); Sodium 139 mmol/L (136-145)
== END 2024-03-09 07:38 | disposition home or self-care (01) ==
LOC: CHSLAB 07:45
PROVIDERS: PCP Internal Medicine; Visit Provider Nurse Practitioner Adult Health
DX: R06.09 Other forms of dyspnea (principal)
CPT/HCPCS: 36415; 80048

== ENCOUNTER 2024-03-20 12:56 | Outpatient (CLI) | payer MEDICARE, SELFPAY ==
--- NOTE | ~2024-03-20 | MM_ITS ---
EXAMINATION: MM screening danette BI w mauro HISTORY: Screening mammogram TECHNIQUE: Craniocaudal and mediolateral oblique 3-D tomosynthesis images were obtained and synthetic 2-D images were generated. CAD analysis was submitted and interpreted. COMPARISON: 03/17/2023, 03/11/2022 bilateral screening mammogram examinations BREAST PARENCHYMAL COMPOSITION: The breasts are almost entirely fatty. FINDINGS: There is no evidence of suspicious mass, calcification, or architectural distortion to sugg est malignancy in either breast. There has been no suspicious interval change. IMPRESSION: 1. No mammographic evidence of malignancy. 2. Recommend routine screening mammography in one year. BI-RADS Category 1: Negative Reviewed, dictated and finalized at location B.
== END 2024-03-20 12:57 | disposition home or self-care (01) ==
LOC: CHSIMG 12:59
PROVIDERS: PCP Internal Medicine; Visit Provider Internal Medicine
DX: Z12.31 Encounter for screening mammogram for malignant neoplasm of breast (principal)
CPT/HCPCS: 77063; 77067

== ENCOUNTER 2024-03-23 07:34 | Outpatient (CLI) | payer MEDICARE, SELFPAY ==
[2024-03-23 08:18] LABS: Appearance Urine Clear (Clear); Basophils Absolute Auto 0.02 K/mm3 (0.00-0.10); Basophils Percent Auto 0.4 % (0.0-1.0); Bilirubin Urine Negative (Negative); Blood Urine Negative (Negative); Color Urine Yellow (Yellow); Eosinophils Absolute Auto 0.08 K/mm3 (0.02-0.50); Eosinophils Percent Auto 1.6 % (1.0-6.0); Glucose Urine UA Negative (Negative); Hematocrit 39.3 % (35.0-42.0); Hemoglobin 13.2 g/dL (11.7-13.8); Immature Granulocyte Absolute 0.01 K/mm3 (0.00-0.00); Immature Granulocyte Percent A 0.2 % (0.0-0.0); Ketones Urine Negative (Negative); Leukocyte Esterase Ur Negative LEU/UL (Negative); Lymphocytes Absolute Auto 1.86 K/mm3 (1.10-4.50); Lymphocytes Percent Auto 36.5 % (18.0-42.0); Mean Corpuscular HGB Conc 33.6 g/dL (32-36); Mean Corpuscular Hemoglobin 32.7 pg (27.0-31.0); Mean Corpuscular Volume 97.3 fL (78.0-102.0); Mean Platelet Volume 9.9 fl (9.2-11.8); Monocytes Absolute Auto 0.55 K/mm3 (0.10-0.90); Monocytes Percent Auto 10.8 % (2.0-11.0); Neutrophils Absolute Auto 2.58 K/mm3 (1.70-7.20); Neutrophils Percent Auto 50.5 % (50.0-70.0); Nitrate Urine Negative (Negative); Platelet Count Result 302 K/mm3 (150-420); Protein Urine Negative (Negative); Red Blood Count 4.04 M/mm3 (4.20-5.40); Red Cell Distribution Width 12.2 % (11.6-14.4); White Blood Count 5.1 K/mm3 (4.8-10.8)
[2024-03-23 08:29] LABS: Add Urine Microscopic? YES; Bacteria Urine Trace /hpf; RBC Urine None seen /hpf (0-2); Squamous Epithelial Cell Urine Few /hpf (Few); WBC Urine None seen /hpf (0-3)
[2024-03-23 08:32] LABS: Hemoglobin A1C 5.3 % (<5.7)
[2024-03-23 09:01] LABS: Alanine Aminotransferase 26 U/L (14-59); Albumin Level 3.6 g/dL (3.4-5.0); Alkaline Phosphatase 62 U/L (46-116); Anion Gap 5 mmol/L (4-12); Aspartate Amino Transferase 15 U/L (15-37); Bilirubin,Total 0.5 mg/dL (0.00-1.00); Blood Urea Nitrogen 13 mg/dL (7-18); Calcium 9.3 mg/dL (8.5-10.1); Carbon Dioxide 35 mmol/L (21-32); Chloride 100 mmol/L (98-108); Cholesterol 152 mg/dL (0-200); Creatine Kinase 74 U/L (26-192); Estimated Glomerular Filt Rate > 60; Free T3 2.69 pg/mL (2.18-3.98); Free T4 Free Thyroxine 1.46 ng/dL (0.76-1.46); Glucose 99 mg/dL (70-99); HDL Direct 66 mg/dL (40-60); LDL Cholesterol Calculated 67 mg/dL (<130); Osmolality Calculated 290 mOsm/kg (285-295); Potassium 4.2 mmol/L (3.5-5.1); Sodium 140 mmol/L (136-145); Thyroid Stimulating Hormone 0.33 uIU/mL (0.36-3.74); Total Protein 6.6 g/dL (6.4-8.2); Triglycerides 97 mg/dL (0-150); Vitamin B12 656 pg/mL (193-986)
== END 2024-03-23 07:35 | disposition home or self-care (01) ==
LOC: CHSLAB 07:38
PROVIDERS: PCP Internal Medicine; Visit Provider Internal Medicine Cardiovascular Disease
DX: N39.0 Urinary tract infection, site not specified (principal); I10 Essential (primary) hypertension; E78.2 Mixed hyperlipidemia; E03.4 Atrophy of thyroid (acquired); R73.01 Impaired fasting glucose; E53.8 Deficiency of other specified B group vitamins
CPT/HCPCS: 36415; 80053; 80061; 81001; 82550; 82607; 83036; 84439; 84443; 84481; 85025

== ENCOUNTER 2024-04-12 08:22 | Outpatient (CLI) | payer MEDICARE, SELFPAY ==
[2024-04-12 08:37] VITALS: BP 145/69; PULSE 16; RESP 16; TEMP 36.1; O2SAT 97; BMI 33.0
[2024-04-12] MEDS: ZOLEDRONIC ACID 5 MG/100 ML 100 ML 400 MG IVPB (09:03)
[2024-04-12 09:31] VITALS: BP 130/60; PULSE 67; RESP 16; TEMP 36.1; O2SAT 97
--- NOTE | 2024-04-12 09:33 | PC.NURSE ---
0830 Patient ambulated to room with walker without difficulty. Reviewed call light and TV with patient and the procedure that we will be doing. Patient states understanding. 0930 Patient completed infusion without difficulty. IV removed and patient left the hospital ambulating with her cane.
== END 2024-04-12 08:23 | disposition home or self-care (01) ==
LOC: CHSTREATRM 08:25
PROVIDERS: PCP Internal Medicine; Visit Provider Internal Medicine
DX: M81.0 Age-related osteoporosis without current pathological fracture (principal)
CPT/HCPCS: 96365; 96374; J3489

== ENCOUNTER 2024-04-17 11:44 | Outpatient (CLI) | payer MEDICARE, SELFPAY ==
--- NOTE | ~2024-04-17 | XR_ITS ---
3 VIEWS LUMBAR SPINE Ordering provider: Janeth Viramontes MD History: . chronic mid-low back pain X 6-8 months, getting worse . Comparison: December 21, 2013 FINDINGS: VERTEBRAL BODIES:Postoperative changes seen on the left side at the level of L4-L5. Mild anterolisthe sis at the level of L4-L5 is noted. No visible fracture or subluxation. Loss of volume is seen in T10 may be acute or chronic. Possible old sacral fracture at the level of S1-S2 is not excluded. Clinica l correlation advised. DISK SPACES: Multilevel degenerative disc changes. Vacuum phenomena is seen at the level of L2-L3. Fu eileen at the level of the disc L4-L5 is noted. Multilevel facet joint disease. SOFT TISSUES: Opacity seen in the right side of the pelvis on the AP view is not demonstrated in the lateral view most likely artifactual. IMPRESSION: No acute osseous abnormality lumbar spine. Multilevel degenerative disc disease. Postoperative change s in the lower lumbar area. Loss of volume of T10 which may be acute or chronic. The area of S1-S2 is not clear.Possibility of old healed fracture cannot be excluded. Reviewed, dictated and finalized at location A. IMPRESSION: No acute osseous abnormality lumbar spine. Multilevel degenerative disc disease . Postoperative changes in the lower lumbar area. Loss of volume of T10 which m ay be acute or chronic. The area of S1-S2 is not clear.Possibility of old heale d fracture cannot be excluded.
[2024-04-17 12:03] LABS: Basophils Absolute Auto 0.02 K/mm3 (0.00-0.10); Basophils Percent Auto 0.3 % (0.0-1.0); Eosinophils Absolute Auto 0.14 K/mm3 (0.02-0.50); Hematocrit 41.5 % (35.0-42.0); Hemoglobin 13.8 g/dL (11.7-13.8); Immature Granulocyte Absolute 0.02 K/mm3 (0.00-0.00); Immature Granulocyte Percent A 0.3 % (0.0-0.0); Lymphocytes Absolute Auto 2.54 K/mm3 (1.10-4.50); Lymphocytes Percent Auto 36.2 % (18.0-42.0); Mean Corpuscular HGB Conc 33.3 g/dL (32-36); Mean Corpuscular Hemoglobin 32.2 pg (27.0-31.0); Mean Corpuscular Volume 96.7 fL (78.0-102.0); Mean Platelet Volume 9.6 fl (9.2-11.8); Monocytes Absolute Auto 0.62 K/mm3 (0.10-0.90); Monocytes Percent Auto 8.8 % (2.0-11.0); Neutrophils Absolute Auto 3.68 K/mm3 (1.70-7.20); Neutrophils Percent Auto 52.4 % (50.0-70.0); Platelet Count Result 355 K/mm3 (150-420); Red Blood Count 4.29 M/mm3 (4.20-5.40); Red Cell Distribution Width 12.3 % (11.6-14.4)
[2024-04-17 13:00] LABS: CRP 0.9 mg/dL (0.0-0.9); Creatine Kinase 118 U/L (26-192); Vitamin B12 801 pg/mL (193-986)
[2024-04-17 13:09] LABS: Erythrocyte Sedimentation Rate 23 mm/hr (0-20)
[2024-04-20 12:43] LABS: Aldolase 3.3 U/L (< OR = 8.1)
== END 2024-04-17 11:45 | disposition home or self-care (01) ==
LOC: CHSLAB 11:48
PROVIDERS: PCP Internal Medicine; Visit Provider Internal Medicine
DX: M54.50 Low back pain, unspecified (principal); M51.36 Other intervertebral disc degeneration, lumbar region
CPT/HCPCS: 36415; 72100; 82085; 82550; 82607; 83516; 83520; 84182; 85025; 85652; 86038; 86039; 86140; 86235

== ENCOUNTER 2024-04-19 09:12 | Outpatient (CLI) | payer MEDICARE, SELFPAY ==
--- NOTE | ~2024-04-19 | MR_ITS ---
MRI of the lumbar spine Clinical History: Back pain Technique: Axial T2-weighted images, and sagittal T1-weighted, T2-weighted, and and T2 fat-sat images were acquired. COMPARISON: 12/26/2013 Findings: There is 12 mm anterolisthesis of L4 over L5. There is left-sided posterior fusion from L4 to L5, with posterior rods and transpedicular screws present from L4 to L5. There is 6 mm retrolisthe sis of L2 over L3. There is 2 mm retrolisthesis of L3 over L4. There are type I Modic changes about t he L2-L3 disc space. At L1-L2, there is mild disc bulge and moderate facet arthropathy. No central canal stenosis. There i s mild bilateral neural foraminal narrowing. At L2-L3, there is disc bulge and severe facet arthropathy, with mild central canal stenosis. There i s severe bilateral neural foraminal compromise. At L3-L4, there is mild disc bulge with severe facet arthropathy. There is severe bilateral neural fo raminal narrowing. At L4-L5, there is partial fusion across the disc space. There is posterior decompression. There is s evere facet arthropathy, but no bernabe canal stenosis. Probable severe bilateral neural foraminal narr owing. At L5-S1, there is severe facet arthropathy with minimal disc bulge. No spinal canal stenosis or neur al foraminal narrowing. Paravertebral soft tissues are unremarkable. Impression: Advanced bilateral neural foraminal narrowing at L2-L3, L3-L4, L4-L5. 12 mm anterolisthesis of L4 over L5, with posterior left-sided fusion from L4 to L5. 6 mm retrolisthesis of L2 over L3. 2 mm retrolisthesis of L3 over L4. Reviewed, dictated and finalized at [facility]. Impression: Advanced bilateral neural foraminal narrowing at L2-L3, L3-L4, L4-L5. 12 mm anterolisthesis of L4 over L5, with posterior left-sided fusion from L4 t o L5. 6 mm retrolisthesis of L2 over L3. 2 mm retrolisthesis of L3 over L4.
== END 2024-04-19 09:13 | disposition home or self-care (01) ==
LOC: CHSIMG 09:14
PROVIDERS: PCP Internal Medicine; Visit Provider Internal Medicine
DX: M54.50 Low back pain, unspecified (principal); M48.061 Spinal stenosis, lumbar region without neurogenic claudication; Z98.1 Arthrodesis status; M43.16 Spondylolisthesis, lumbar region
CPT/HCPCS: 72148

== ENCOUNTER 2024-05-15 10:28 | Outpatient (CLI) | payer MEDICARE, SELFPAY ==
--- NOTE | 2024-05-15 11:30 | NEURO_ITS ---
Impression: # Complains of balance difficulties. # Bilateral axonal motor and sensory neuropathy. # Abnormal needle/EMG exam with neurogenic changes. # Clinical correlation recommended. Nerve Conduction Studies Anti Sensory Summary Table Stim Site NR Peak (ms) P-T Amp (?V) Site1 Site2 Delta-P (ms) Dist (cm) [place] (m/s) Left Sup Fibular Anti Sensory (Ant Lat Mall) NO RESPONSE 14 cm NR 14 cm Ant Lat Mall 16.0 Right Sup Fibular Anti Sensory (Ant Lat Mall) NO RESPONSE 14 cm NR 14 cm Ant Lat Mall 16.0 Left Sural Anti Sensory (Lat Mall) NO RESPONSE Calf NR Calf Lat Mall 16.0 Right Sural Anti Sensory (Lat Mall) NO RESPONSE Calf NR Calf Lat Mall 16.0 Motor Summary Table Stim Site NR Onset (ms) O-P Amp (mV) Site1 Site2 Delta-0 (ms) Dist (cm) [place] (m/s) Left Peroneal Motor (Vastus Med) Ankle 4.8 2.2 Popit Ankle 13.5 42.0 31 Popit 18.3 0.7 Right Peroneal Motor (Vastus Med) Ankle 4.5 1.2 Popit Ankle 10.1 41.0 41 Popit 14.6 1.0 Left Tibial Motor (Abd Garnica Brev) Ankle 5.1 1.2 Knee Ankle 11.9 44.0 37 Knee 17.0 1.1 Right Tibial Motor (Abd Garnica Brev) Ankle 4.5 1.0 Knee Ankle 12.3 41.0 33 Knee 16.8 0.3 F Wave Studies NR F-Lat (ms) L-R F-Lat (ms) Left Peroneal (Mrkrs) (EDB) 59.30 0.82 Right Peroneal (Mrkrs) (EDB) 60.12 0.82 Left Tibial (Mrkrs) (Abd Hallucis) 62.23 1.06 Right Tibial (Mrkrs) (Abd Hallucis) 61.17 1.06 EMG Side Muscle Nerve Root Ins Act Fibs Amp Dur Recrt Comment Right AntTibialis Dp Br Fibular L4-5 Nml Nml Nml >12ms +1 Right Gastroc Tibial S1-2 Nml Nml Nml Nml Nml Right Fibularis Long Sup Br Fibular L5-S1 Nml Nml Nml >12ms +1 Right Flex Dig Long Tibial L5-S2 Nml Nml Nml Nml Nml Right Ext Dig Brev Dp Br Fibular L5, S1 Nml Nml Nml >12ms +2 Left AntTibialis Dp Br Fibular L4-5 Nml Nml Nml >12ms +1 Left Gastroc Tibial S1-2 Nml Nml Nml Nml Nml Left Fibularis Long Sup Br Fibular L5-S1 Nml Nml Nml >12ms +1 Left Flex Dig Long Tibial L5-S2 Nml Nml Nml Nml Nml Left Ext Dig Brev Dp Br Fibular L5, S1 Nml Nml Nml >12ms +2 MTDD
== END 2024-05-15 10:29 | disposition home or self-care (01) ==
LOC: ANHNEURO 10:29
PROVIDERS: PCP Internal Medicine; Visit Provider Internal Medicine
DX: G90.09 Other idiopathic peripheral autonomic neuropathy (principal); R94.131 Abnormal electromyogram [EMG]
CPT/HCPCS: 95886; 95910

== ENCOUNTER 2024-06-16 08:29 | Outpatient (CLI) | payer MEDICARE, SELFPAY ==
--- NOTE | ~2024-06-16 | MR_ITS ---
EXAMINATION: MR thoracic spine wo con DATE: 06/16/2024 10:12 INDICATION: Thoracic back pain. TECHNIQUE: Magnetic resonance imaging (MRI) of the thoracic spine was performed without intravenous c ontrast. COMPARISON: None FINDINGS: There is kyphosis of thoracic spine. There is 5 degrees levocurvature of the thoracic spine . There is mild chronic anterior wedging of T10-T12 vertebral bodies. There are Schmorl's nodes at mu ltiple levels. There is mild to moderately decreased disc height from T4-T5 through T9-T10, severely decreased disc height at T10-T11, and mildly decreased disc height at T11-T12. At T7-T8, there is a c entral extrusion with mild central canal stenosis. At T8-T9, there is a central extrusion with mild c entral canal stenosis. At T9-T10 and T10-T11, there are central protrusions with mild central canal s tenosis. At T11-T12, there is a central extrusion with mild central canal stenosis. There is multilev el facet facet joint osteoarthritis. There is mild neural foraminal stenosis at a few levels on eithe r side. The spinal cord signal intensity is normal. IMPRESSION: 1. Severe thoracic spondylosis. Reviewed, dictated and finalized at location A.
== END 2024-06-16 08:30 | disposition home or self-care (01) ==
LOC: CHSIMG 08:31
PROVIDERS: PCP Internal Medicine; Visit Provider Nurse Practitioner Family
DX: M54.6 Pain in thoracic spine (principal); M43.04 Spondylolysis, thoracic region
CPT/HCPCS: 72146

== ENCOUNTER 2024-06-29 08:05 | Outpatient (CLI) | payer MEDICARE, SELFPAY ==
--- NOTE | ~2024-06-29 | MR_ITS ---
EXAMINATION: MR cervical spine wo con DATE: 06/29/2024 08:49 INDICATION: Radiculopathy, cervical region. TECHNIQUE: Magnetic resonance imaging (MRI) of the cervical spine was performed without intravenous c ontrast. COMPARISON: None FINDINGS: There is 3 degrees dextrocurvature of cervical spine. There is 2 mm retrolisthesis of C5 on C6. Vertebral body heights are normal. There is severely decreased disc height at C5-C6 and C6-C7. T he spinal cord signal intensity is normal. The following disc levels are specifically discussed: C2-C3: The disc does not extend beyond the endplate margin. There is mild left uncovertebral joint os teoarthritis. There is severe right and mild left facet joint osteoarthritis. There is no neural fora meg stenosis. There is no central canal stenosis. C3-C4: There is a central protrusion. There is no uncovertebral joint osteoarthritis. There is mild r ight and severe left facet joint osteoarthritis. There is mild left neural foraminal stenosis. There is no central canal stenosis. C4-C5: The disc does not extend beyond the endplate margin. There is no uncovertebral joint osteoarth ritis. There is moderate left facet joint osteoarthritis. There is mild left neural foraminal stenosi s. There is no central canal stenosis. C5-C6: The disc is bulging. There is severe bilateral uncovertebral joint osteoarthritis. There is mo derate right and severe left facet joint osteoarthritis. There is moderate right and severe left neur al foraminal stenosis. There is mild central canal stenosis. C6-C7: The disc is bulging. There is severe bilateral uncovertebral joint osteoarthritis. There is se kait bilateral facet joint osteoarthritis. There is mild bilateral neural foraminal stenosis. There i s no central canal stenosis. C7-T1: The disc does not extend beyond the endplate margin. There is no uncovertebral joint osteoarth ritis. There is moderate and severe left facet joint osteoarthritis. There is mild bilateral neural f oraminal stenosis. There is no central canal stenosis. IMPRESSION: 1. Severe cervical spondylosis. Reviewed, dictated and finalized at location A.
== END 2024-06-29 08:06 ==
PROVIDERS: PCP Internal Medicine; Visit Provider Orthopaedic Surgery
DX: M43.02 Spondylolysis, cervical region (principal)
CPT/HCPCS: 72141

== ENCOUNTER 2024-08-08 08:29 | Outpatient (CLI) | payer MEDICARE, SELFPAY ==
--- NOTE | 2024-08-08 12:00 | NEURO_ITS ---
Impression: # Complains of numbness of hands. Non-diabetic. # Bilateral Carpal Tunnel Syndrome. # No ulnar neuropathy. # Abnormal Needle/EMG exam. Nerve Conduction Studies Anti Sensory Summary Table Stim Site NR Peak (ms) P-T Amp (?V) Site1 Site2 Delta-P (ms) Dist (cm) [place] (m/s) Left Median Anti Sensory (2-3nd Digit) Wrist 4.7 7.8 Wrist 2-3nd Digit 4.7 14.0 30 Wrist 5.3 20.9 Wrist 2-3nd Digit 4.7 14.0 30 Right Median Anti Sensory (2-3nd Digit) Wrist 4.8 9.1 Wrist 2-3nd Digit 4.8 14.0 29 Wrist 5.4 7.2 Wrist 2-3nd Digit 4.8 14.0 29 Left Radial Anti Sensory (Base 1st Digit) Wrist 2.5 12.6 Wrist Base 1st Digit 2.5 0.0 Right Radial Anti Sensory (Base 1st Digit) Wrist 3.3 6.7 Wrist Base 1st Digit 3.3 0.0 Left Ulnar Anti Sensory (5th Digit) Wrist 3.0 38.2 Wrist 5th Digit 3.0 14.0 47 Right Ulnar Anti Sensory (5th Digit) Wrist 3.2 8.3 Wrist 5th Digit 3.2 14.0 44 Motor Summary Table Stim Site NR Onset (ms) O-P Amp (mV) Site1 Site2 Delta-0 (ms) Dist (cm) [place] (m/s) Left Median Motor (Abd Poll Brev) Wrist 4.8 2.6 Elbow Wrist 5.7 30.0 53 Elbow 10.5 2.7 Right Median Motor (Abd Poll Brev) Wrist 4.1 4.0 Elbow Wrist 7.2 32.0 44 Elbow 11.3 4.3 Left Ulnar Motor (Abd Dig Minimi) Wrist 2.6 5.4 A Elbow Wrist 5.4 30.0 56 A Elbow 8.0 3.3 Right Ulnar Motor (Abd Dig Minimi) Wrist 2.7 3.5 A Elbow Wrist 5.3 31.0 58 A Elbow 8.0 2.8 F Wave Studies NR F-Lat (ms) L-R F-Lat (ms) Left Median (Mrkrs) (Abd Poll Brev) 32.35 1.10 Right Median (Mrkrs) (Abd Poll Brev) 31.25 1.10 Left Ulnar (Mrkrs) (Abd Dig Min) 30.75 0.99 Right Ulnar (Mrkrs) (Abd Dig Min) 29.76 0.99 EMG Side Muscle Nerve Root Ins Act Fibs Amp Dur Recrt Comment Right 1stDorInt Ulnar C8-T1 Nml Nml Nml Nml Nml Right Ext Indicis Radial (Post Int) C7-8 Nml Nml Nml Nml Nml Right Ext Digitorum Radial (Post Int) C7-8 Nml Nml Nml Nml Nml Right BrachioRad Radial C5-6 Nml Nml Nml Nml Nml Right PronatorTeres Median C6-7 Nml Nml Nml Nml Nml Right Abd Poll Brev Median C8-T1 Nml Nml Nml >12ms +1 Right ABD Dig Min Ulnar C8-T1 Nml Nml Nml Nml Nml Left 1stDorInt Ulnar C8-T1 Nml Nml Nml Nml Nml Left Ext Indicis Radial (Post Int) C7-8 Nml Nml Nml Nml Nml Left Ext Digitorum Radial (Post Int) C7-8 Nml Nml Nml Nml Nml Left BrachioRad Radial C5-6 Nml Nml Nml Nml Nml Left PronatorTeres Median C6-7 Nml Nml Nml Nml Nml Left Abd Poll Brev Median C8-T1 Nml Nml Nml >12ms +1 Left ABD Dig Min Ulnar C8-T1 Nml Nml Nml Nml Nml MTDD
== END 2024-08-08 08:30 | disposition home or self-care (01) ==
PROVIDERS: PCP Internal Medicine; Visit Provider Orthopaedic Surgery
DX: G56.03 Carpal tunnel syndrome, bilateral upper limbs (principal)
CPT/HCPCS: 95886; 95911

== ENCOUNTER 2024-08-17 04:33 | Day surgery (SDC) | payer MEDICARE, SELFPAY ==
[2024-08-16 11:54] VITALS: BMI 33.7
[2024-08-17] VITALS (15 sets, daily range): BP systolic 114–138; BP diastolic 44–65; PULSE 61–82; RESP 12–23; TEMP 36.6; O2SAT 94–98
[2024-08-17 07:39] LABS: Basophils Percent Auto 0.4 % (0.2-1.2); Eosinophils Absolute Auto 0.1 K/mm3 (0-0.3); Eosinophils Percent Auto 2.7 % (0-4.4); Hematocrit 38.4 % (37.0-47.0); Hemoglobin 13.1 g/dL (12.0-15.0); Immature Granulocyte Absolute 0.01 K/mm3 (0.00-0.031); Immature Granulocyte Percent A 0.2 % (0-0.5); Lymphocytes Absolute Auto 1.73 K/mm3 (0.9-3.2); Lymphocytes Percent Auto 33.1 % (18.3-44.2); Mean Corpuscular HGB Conc 34.1 g/dl (32-36); Mean Corpuscular Hemoglobin 33.1 pg (26-34); Mean Platelet Volume 9.8 fl (7.4-10.4); Monocytes Absolute Auto 0.6 K/mm3 (0.1-0.6); Monocytes Percent Auto 11.3 % (2.6-8.5); Neutrophils Absolute Auto 2.7 K/mm3 (1.3-6.7); Neutrophils Percent Auto 52.3 % (45.5-73.1); Platelet Count Result 296 k/mm3 (150-375); Red Blood Count 3.96 M/mm3 (4.2-5.4); Red Cell Distribution Width 12.4 % (11.5-14.5); White Blood Count 5.2 K/mm3 (4.5-10.0)
[2024-08-17 09:03] LABS: Anion Gap 5 mmol/L (4-12); Blood Urea Nitrogen 18 mg/dL (7-17); Calcium 8.9 mg/dL (8.4-10.2); Carbon Dioxide 30 mmol/L (22-30); Chloride 97 mmol/L (98-107); Estimated CRCL calculation 75 ml/min; Estimated Glomerular Filt Rate > 60; Glucose 103 mg/dL (65-110); Sodium 132 mmol/L (137-145)
--- NOTE | 2024-08-17 10:16 | WPDHPUPDATE1 ---
History and Physical Update Update Date/Time: 08/17/24 10:16 History and Physical has been reviewed, including an updated exam of the patient. There are NO changes in the patient's condition. Risks, benefits, and alternatives have been discussed and questions answered. Patient agrees to proceed with procedure.
--- NOTE | 2024-08-17 10:16 | WPDMODSED ---
Moderate Sedation Note-Pt Data Patient Data Allergies Allergy/AdvReac Type Severity Reaction Status Date / Time bacitracin Allergy Intermediate RASH Verified 08/17/24 07:22 adhesive tape Allergy Mild rash Verified 08/17/24 07:22 latex Allergy Mild RASH WITH Verified 08/17/24 07:22 BLISTERS neomycin AdvReac redness/irr Verified 08/17/24 07:22 [From Neosporin itation ([id number])] polymyxin B AdvReac redness/irr Verified 08/17/24 07:22 [From Neosporin iation ([id number])] Home Medications Medication Instructions Recorded Confirmed Type famotidine 20 mg tablet 20 mg PO DAILY 10/26/19 08/16/24 History fluticasone propionate 50 2 inhalation inhalation HS PRN 10/26/19 08/16/24 History mcg/actuation blister powder for Congestion inhalation furosemide 40 mg tablet 60 mg PO QAM 10/26/19 08/16/24 History ipratropium bromide 42 mcg (0.06 2 spray intranasal BID PRN 10/26/19 08/16/24 History %) nasal spray Congestion levothyroxine 200 mcg tablet 200 mcg PO QAM 10/26/19 08/16/24 History pantoprazole 40 mg tablet,delayed 40 mg PO QAM 10/26/19 08/16/24 History release paroxetine HCl 20 mg tablet 40 mg PO QAM 10/26/19 08/16/24 History pravastatin 40 mg tablet 40 mg PO HS 10/26/19 08/16/24 History (Pravachol) ranolazine 1,000 mg 1,000 mg PO Q12H 10/26/19 08/16/24 History tablet,extended release,12 hr (Ranexa) cyanocobalamin (vitamin B-12) 500 500 mcg PO DAILY 12/05/20 08/16/24 History mcg lozenges (Vitamin B-12) isosorbide mononitrate 30 mg 90 mg PO QAM 12/05/20 08/16/24 History tablet,extended release 24 hr flaxseed oil 1,000 mg capsule 1,000 mg PO BID 03/25/21 08/16/24 History metoprolol tartrate 25 mg tablet 25 mg PO BID 03/25/21 08/16/24 History vit C 250 mg-vit E 200 unit-zinc 1 tablet PO BID 03/25/21 08/16/24 History 12.5 mg-copper 1 [id number] tablet (ICaps AREDS2 (copper citrate)) losartan 100 mg tablet 100 mg PO DAILY 04/05/23 08/16/24 History gabapentin 100 mg capsule 100 mg PO TID 06/27/24 08/16/24 History hydrochlorothiazide 25 mg tablet 25 mg PO DAILY 08/16/24 08/16/24 History latanoprost 0.005 % eye drops 1 drp LEFT EYE HS 08/16/24 08/16/24 History potassium chloride 10 mEq 10 meq PO DAILY 08/17/24 08/17/24 History tablet,extended release Current Medications: Active Medications Sodium Chloride (Normal Saline Iv) 500 mls @ 100 mls/hr IV CONT .Q5H CAMILA Sedation/Anesthesia: No previous sedation/anesthesia problems (including family history). [facility] Past Medical History Medical History (Updated 07/02/24 @ 13:47 by Aydin Pritchard MD) Angina pectoris Anxiety Arthritis Congestive heart failure the patient stated that she was diagnosed with CHF but he did not see any diagnosis under cardiology note. She is on diuretics. GERD (gastroesophageal reflux disease) High cholesterol HTN (hypertension) Hypothyroidism Neuropathy Thyroid disease Wears glasses Surgical History Surgical History H/O colonoscopy H/O total hysterectomy History of back surgery History of bladder surgery History of cataract surgery History of ERCP x3. She had stents placed which were subsequently removed in some type of the duct. Not sure if it is a common bile duct pancreatic duct or the liver. History of total knee replacement Left total knee arthroplasty Hx laparoscopic cholecystectomy S/P colonoscopic polypectomy S/P total knee arthroplasty right total knee arthroplasty today by Dr. Pritchard 12/15/2020 Family History Family History Father COPD (chronic obstructive pulmonary disease) Heart disease Malignant neoplasm of prostate Hypertension Mother Heart disease Alzheimer's dementia Acute myocardial infarction Hypertension Other Diabetes mellitus Cancer Cerebrovascular accident Sibling Heart disease Unknown Diabetes mellitus
--- NOTE | 2024-08-17 10:17 | P.PCNCC_ITS ---
Cardiac Cath Procedure Note Date of procedure:: 08/17/24 Performing physician:: CATHETERIZATION LABORATORY REPORT Procedure Date: 08/17/2024 Referring Physician: Dr. Telles Anesthesia: Versed and Fentanyl were ordered and given in my presence at 0927, procedure ended at 0940. Supervision of nurse, Lucila Moody, monitored moderate sedation with 2mg Versed and 100mcg Fentanyl was provided for 13 minutes. Pre-op Diagnosis: CAD Post-op Diagnosis: CAD Procedure(s): Left heart catheterization with coronary angiography Access Site: Right radial artery. TR band used for hemostasis Brief History and Clinical Indications: 79 yo woman with CAD now having progressive anginal equivalent symptoms on two or more antianginals here for left heart catheterization with possible PCI All risks, benefits and alternatives to left heart catheterization with or without percutaneous coronary intervention was discussed at length with the patient. Risk of complications including but not limited to bleeding, infection, arrhythmia, stroke, worsening kidney function, blood loss, groin hematoma, limb loss, emergency coronary artery bypass grafting, and even were discussed with the patient and all questions were answered. The patient understood and wished to proceed. 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 Findings: LEFT HEART CATHETERIZATION FINDINGS: 1. Left main: The left main coronary artery is widely patent without any significant obstructive disease. 2. Left anterior descending: The LAD gives off 1 moderate size diagonal branch. The diagonal branch has luminal irregularities. The mid LAD has a 40% stenosis focal eccentric stenosis 3. Left circumflex: The left circumflex artery and the main marginal branches have mild luminal irregularities without any significant obstructive angiographic disease. 4. Right coronary artery: The RCA has mild luminal irregularities without any significant obstructive angiographic disease. The RCA is the dominant vessel. 5. Left ventricle: A. End-diastolic pressure 16 mmHg. B. LV gram deferred. C. No significant gradient across aortic valve on catheter pullback. 6. Opening AO pressure 116/56 and closing AO pressure 112/69 Description of Procedure: Informed consent signed and placed in the chart. Patient transferred to clinical laboratory science professor room. Prepped and draped in usual sterile fashion. 2% lidocaine injected subcutaneously in right wrist area. 22-gauge venipuncture catheter used to access the right radial artery with the Seldinger technique. 6-FR slender sheath placed in right radial artery. Nitroglycerin 200mcg, Verapamil 2.5mg, and Heparin 5000U was given intraarterial through the sheath. J wire advanced under fluoroscopy 5Fr TIG diagnostic catheter engaged Left Main Coronary Artery. 5Fr TIG diagnostic catheter engaged Right Coronary Artery Multiple orthogonal angiogram obtained and reviewed 5Fr TIG diagnostic catheter crossed aortic valve to obtain LVEDP, LV angiogram deferred. Hemostasis was achieved by application of TR band. Assessment: Nonobstructive CAD Post Operative Condition: Stable No significant blood loss Disposition: Home Plan: Symptoms unlikely related to CAD Continue medical management for preventative care [facility] Inter[facility] Card[facility]
== END 2024-08-17 13:42 | disposition home or self-care (01) ==
PROVIDERS: PCP Internal Medicine; Visit Provider Internal Medicine
PROC: 4A023N7 Measurement of Cardiac Sampling and Pressure, Left Heart, Percutaneous Approach (ICD-10-PCS; CPT 93452; principal; 2024-08-17 08:30)
DX: I25.10 Atherosclerotic heart disease of native coronary artery without angina pectoris (principal); I11.0 Hypertensive heart disease with heart failure; I50.9 Heart failure, unspecified; E03.9 Hypothyroidism, unspecified; G62.9 Polyneuropathy, unspecified; F41.9 Anxiety disorder, unspecified; E78.2 Mixed hyperlipidemia; K21.9 Gastro-esophageal reflux disease without esophagitis; G47.33 Obstructive sleep apnea (adult) (pediatric); E07.9 Disorder of thyroid, unspecified; F12.90 Cannabis use, unspecified, uncomplicated; Z79.51 Long term (current) use of inhaled steroids
CPT/HCPCS: 36415; 80048; 85025; 93458; A9270; C1769; C1887; C1894; J1644; J2003; J2250; J2305; J3010; J7040

== ENCOUNTER 2024-09-19 15:59 | Outpatient (CLI) | payer MEDICARE, SELFPAY ==
--- NOTE | ~2024-09-19 | XR_ITS ---
CHEST RADIOGRAPH, PA AND LATERAL CLINICAL HISTORY: pre op . COMPARISON: 12/05/2020 TECHNIQUE: PA and lateral views of the chest. FINDINGS The cardiomediastinal silhouette is unremarkable. Increased interstitial markings are identified bilaterally, findings suggesting mild pulmonary vascul ar congestion. The remainder of the lungs are clear. Visualized osseous structures and soft tissues are unremarkable. IMPRESSION: Mild pulmonary vascular congestion, without focal infiltrate or effusion. Reviewed, dictated and finalized at location A. SITE SUPERVISOR
--- NOTE | 2024-09-19 16:18 | ECG_ITS ---
Test Date: 2024-09-19 16:35:02 Measurements Intervals [place] Rate: 66 P: 141 WA: 187 QRS: 84 QRSD: 92 T: 104 QT: 429 QTc: 452 Interpretive Statements ECTOPIC ATRIAL RHYTHM HIGH LATERAL INFARCT, AGE INDETERMINATE BASELINE ARTIFACT- I, III, AVR, AVL ABNORMAL ECG No previous ECG available for comparison Electronically Signed On 09-19-2024 18:40:34 PARTNER MARKETING MANAGER by Dieter Herring D.O.
[2024-09-19 16:22] LABS: Add Urine Microscopic? NO; Appearance Urine Clear (Clear); Bilirubin Urine Negative (Negative); Blood Urine Negative (Negative); Color Urine Light Yellow (Yellow); Glucose Urine UA Negative (Negative); Ketones Urine Negative (Negative); Leukocyte Esterase Ur Negative (Negative); Nitrate Urine Negative (Negative); Protein Urine Negative (Negative); Specific Grav Ur <= 1.005 (1.010-1.020); Urobilinogen Urine 0.2 mg/dL (0.2-1.0)
[2024-09-19 16:23] LABS: Basophils Absolute Auto 0.03 K/mm3 (0.00-0.10); Basophils Percent Auto 0.4 % (0.0-1.0); Eosinophils Absolute Auto 0.11 K/mm3 (0.02-0.50); Eosinophils Percent Auto 1.5 % (1.0-6.0); Hematocrit 41.6 % (35.0-42.0); Hemoglobin 14.3 g/dL (11.7-13.8); Immature Granulocyte Absolute 0.02 K/mm3 (0.00-0.00); Immature Granulocyte Percent A 0.3 % (0.0-0.0); Lymphocytes Absolute Auto 2.36 K/mm3 (1.10-4.50); Lymphocytes Percent Auto 32.4 % (18.0-42.0); Mean Corpuscular HGB Conc 34.4 g/dL (32-36); Mean Corpuscular Hemoglobin 33.3 pg (27.0-31.0); Mean Corpuscular Volume 96.7 fL (78.0-102.0); Mean Platelet Volume 9.3 fl (9.2-11.8); Monocytes Absolute Auto 0.71 K/mm3 (0.10-0.90); Monocytes Percent Auto 9.8 % (2.0-11.0); Neutrophils Absolute Auto 4.05 K/mm3 (1.70-7.20); Neutrophils Percent Auto 55.6 % (50.0-70.0); Platelet Count Result 345 K/mm3 (150-420); Red Cell Distribution Width 12.3 % (11.6-14.4); White Blood Count 7.3 K/mm3 (4.8-10.8)
[2024-09-19 17:12] LABS: Alanine Aminotransferase 29 U/L (14-59); Albumin Level 3.7 g/dL (3.4-5.0); Alkaline Phosphatase 64 U/L (46-116); Anion Gap 5 mmol/L (4-12); Aspartate Amino Transferase 18 U/L (15-37); Bilirubin,Total 0.3 mg/dL (0.00-1.00); Blood Urea Nitrogen 22 mg/dL (7-18); Calcium 9.5 mg/dL (8.5-10.1); Carbon Dioxide 35 mmol/L (21-32); Chloride 96 mmol/L (98-108); Estimated Glomerular Filt Rate 58; Glucose 89 mg/dL (70-99); Osmolality Calculated 284 mOsm/kg (285-295); Potassium 4.5 mmol/L (3.5-5.1); Sodium 136 mmol/L (136-145); Total Protein 7.1 g/dL (6.4-8.2)
== END 2024-09-19 16:00 | disposition home or self-care (01) ==
PROVIDERS: PCP Internal Medicine; Visit Provider Nurse Practitioner Family
DX: I25.10 Atherosclerotic heart disease of native coronary artery without angina pectoris (principal); I10 Essential (primary) hypertension; E78.2 Mixed hyperlipidemia; R91.8 Other nonspecific abnormal finding of lung field; R94.31 Abnormal electrocardiogram [ECG] [EKG]
CPT/HCPCS: 36415; 71046; 80053; 81003; 85025; 93005

== ENCOUNTER 2024-09-22 07:27 | Outpatient (CLI) | payer MEDICARE, SELFPAY ==
[2024-09-22 07:58] LABS: Add Urine Microscopic? NO; Appearance Urine Clear (Clear); Basophils Absolute Auto 0.01 K/mm3 (0.00-0.10); Basophils Percent Auto 0.2 % (0.0-1.0); Bilirubin Urine Negative (Negative); Blood Urine Negative (Negative); Color Urine Yellow (Yellow); Eosinophils Percent Auto 1.7 % (1.0-6.0); Glucose Urine UA Negative (Negative); Hematocrit 39.8 % (35.0-42.0); Hemoglobin 13.4 g/dL (11.7-13.8); Immature Granulocyte Absolute 0.01 K/mm3 (0.00-0.00); Immature Granulocyte Percent A 0.2 % (0.0-0.0); Ketones Urine Negative (Negative); Leukocyte Esterase Ur Negative LEU/UL (Negative); Lymphocytes Percent Auto 30.9 % (18.0-42.0); Mean Corpuscular HGB Conc 33.7 g/dL (32-36); Mean Corpuscular Hemoglobin 32.7 pg (27.0-31.0); Mean Corpuscular Volume 97.1 fL (78.0-102.0); Mean Platelet Volume 9.3 fl (9.2-11.8); Monocytes Absolute Auto 0.61 K/mm3 (0.10-0.90); Monocytes Percent Auto 10.5 % (2.0-11.0); Neutrophils Percent Auto 56.5 % (50.0-70.0); Nitrate Urine Negative (Negative); Platelet Count Result 317 K/mm3 (150-420); Protein Urine Negative (Negative); Red Cell Distribution Width 12.3 % (11.6-14.4); White Blood Count 5.8 K/mm3 (4.8-10.8); pH Urine 6.5 (5.0-8.0)
[2024-09-22 08:16] LABS: Hemoglobin A1C 5.4 % (<5.7)
[2024-09-22 08:24] LABS: Alanine Aminotransferase 26 U/L (14-59); Albumin Level 3.3 g/dL (3.4-5.0); Alkaline Phosphatase 61 U/L (46-116); Anion Gap 7 mmol/L (4-12); Aspartate Amino Transferase 12 U/L (15-37); Bilirubin,Total 0.5 mg/dL (0.00-1.00); Blood Urea Nitrogen 17 mg/dL (7-18); Carbon Dioxide 32 mmol/L (21-32); Chloride 100 mmol/L (98-108); Cholesterol 157 mg/dL (0-200); Creatine Kinase 56 U/L (26-192); Estimated Glomerular Filt Rate > 60; Glucose 97 mg/dL (70-99); HDL Direct 68 mg/dL (40-60); LDL Cholesterol Calculated 73 mg/dL (<130); Osmolality Calculated 289 mOsm/kg (285-295); Potassium 4.5 mmol/L (3.5-5.1); Sodium 139 mmol/L (136-145); Total Protein 6.4 g/dL (6.4-8.2); Triglycerides 79 mg/dL (0-150)
[2024-09-22 11:35] LABS: Creatinine Urine 91.64 mg/dL (40-278); MALB Creatinine Ratio 14.1 mg/g (0-30); Microalbumin Urine Random < 13.0 mg/L
== END 2024-09-22 07:28 | disposition home or self-care (01) ==
PROVIDERS: PCP Internal Medicine; Visit Provider Internal Medicine
DX: E78.2 Mixed hyperlipidemia (principal); I10 Essential (primary) hypertension; R73.01 Impaired fasting glucose; E53.8 Deficiency of other specified B group vitamins; E03.4 Atrophy of thyroid (acquired); N39.0 Urinary tract infection, site not specified
CPT/HCPCS: 36415; 80053; 80061; 81003; 82043; 82550; 83036; 85025

== ENCOUNTER 2024-10-08 00:09 | Day surgery (SDC) | payer MEDICARE, SELFPAY ==
[2024-09-27 11:16] VITALS: BMI 36.0
--- NOTE | 2024-09-27 11:34 | PC.NURSE ---
Addendum entered by Keerthi Jeffers RN 09/27/24 13:02: Pt is to recheck with Dr Cantor on her Aspirin instructions prior to surgery, she will call them today and verify if to stop it or not ahead. Original Note: Report to the Outpatient Waiting Room, entrance under the green pavilion located off [facility], at time __0600am on date __10/08/24____. Planned Procedure Time:0730am .? Time changes happen often and if your time is changed the preop area will call you the afternoon before. - You and your visitor will be asked to self-screen and do not enter if you have any COVID symptoms. Please call surgeon if you need to reschedule. - A mask is optional within the hospital at this time. Patients may have clear liquids (water, carbonated beverages, clear teas, apple juice) until 3 hours prior to surgery with a maximum of 20 ounces. - No food from midnight until time of surgery and no smoking (04:30am) Take only the following medications with a SIP of water on the morning of surgery: __Gabapentin, Imdur, Levothyroxine, Metoprolol, and Paraxetine and Ranexa DO NOT STOP ANY OF YOUR OTHER PRESCRIPTION MEDICATIONS PRIOR TO SURGERY EXCEPT THE FOLLOWING Medications to discontinue per physician Hold all vitamins and supplements for 3 days prior to surgery per Anesthesia. Date to take last dose 10/04/24 Please no make-up, nail ukrainian, hairspray, perfume, deodorant, or body powder the day of surgery.? No jewelry (including any body piercings) or valuables the day of surgery, leave them at home.? Please take a shower or bath the night before, or the morning of, surgery with an antibacterial soap.? Wear comfortable, loose fitting clothing.? - Jewelry must be removed prior to entering the operating room.? Rings and piercings that are not removed may be cut off. - The hospital will not accept responsibility for valuables.? - Please leave all valuables, including medications, at home the day of surgery. If you are going home after surgery, a licensed motor driver must drive you home.? - NO public transportation without another adult if you receive anesthesia. - We recommend that an adult stay with you for 24 hours following discharge. - We also recommend that you do not drive, make important decision, drink alcoholic beverages, or take any drugs that were not prescribed by your health care provider for at least 24 hours after your discharge time. Follow any additional instructions given to you from your surgeon. Telephone instructions given to __Patient and asked if any additional questions and then verbalized understanding. Patient advised to call surgeon office or pre surgery nurse liaison [phone] if any additional questions.
--- NOTE | 2024-10-05 11:46 | P.HP_ITS ---
H&P: HPI History of Present Illness Date/Time: 10/05/24 11:46 Chief Complaint: Right carpal tunnel syndrome Narrative: 79-year-old female who presents today for a right carpal tunnel release. She started having symptoms in the right hand approximately 3 years ago. She and a right distal radius fracture that was treated nonsurgically. Since that time she has been developing numbness and tingling in the fingers that has gradually worsened. She wakes at night with her hand tingling significantly in pain. She has tried splints at night which do not seem to help. She gets numbness during the day as well. She has numbness in the thumb index and long finger mostly. Patient has had a recent EMG study which does show bilateral carpal tunnel syndrome. Patient feels this point she would like to proceed with carpal tunnel release rather than continue nonsurgical treatment. Review of Systems Review of Systems: All systems reviewed & are unremarkable except as noted in HPI and below PMFSH Past Medical History Medical History Angina pectoris Anxiety Arthritis Congestive heart failure the patient stated that she was diagnosed with CHF but he did not see any diagnosis under cardiology note. She is on diuretics. GERD (gastroesophageal reflux disease) High cholesterol HTN (hypertension) Hypothyroidism Neuropathy Thyroid disease Wears glasses Surgical History Surgical History H/O colonoscopy H/O total hysterectomy History of back surgery History of bladder surgery History of cataract surgery History of ERCP x3. She had stents placed which were subsequently removed in some type of the duct. Not sure if it is a common bile duct pancreatic duct or the liver. History of total knee replacement Left total knee arthroplasty Hx laparoscopic cholecystectomy S/P colonoscopic polypectomy S/P total knee arthroplasty right total knee arthroplasty today by Dr. Pritchard 12/15/2020 Family History Family History Father COPD (chronic obstructive pulmonary disease) Heart disease Malignant neoplasm of prostate Hypertension Mother Heart disease Alzheimer's dementia Acute myocardial infarction Hypertension Other Diabetes mellitus Cancer Cerebrovascular accident Sibling Heart disease Unknown Diabetes mellitus Heart disease Cancer Cerebrovascular accident Hypertension Kidney disease Other Arthritis High cholesterol Social History Social History Social History: the patient lives with her . 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 The patient is a full code. 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 The patient has 2 children 1 son and 1 daughter. The patient is a lifelong nonsmoker. It may be has 3 drinks of alcohol per year. Smoking status: Never smoker Second hand tobacco smoke exposure: Yes Alcohol intake: current Alcohol use details: wine yearly Substance use: current Substance use type: marijuana Other substance usage details: uses 2 gummies at night to sleep Last use: 08/15/24 Do You Feel Safe in your Home?: Yes Lack of Transportation: No Lack of Food: Never True Current Housing: I Have Housing Concerned About Future Housing: No Difficulty Paying Gas/Electric Bills: No Difficulty Paying for Meds: No Currently Unemployed: No Education: Associate Degree Difficulty w/ Childcare or Family Care: No Living arrangements: with family Additional living arrangements comments: Occupation/Education: retired 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[employer] [place] Gender identity (if verbalized by the patient): Female Spiritual care concerns: No Meds Home Medications and Allergies Home Medications Medication Instructions Recorded Confirmed Type famotidine 20 mg tablet 20 mg PO DAILY 10/26/19 09/27/24 History fluticasone propionate 50 2 inhalation inhalation HS PRN 10/26/19 09/27/24 History mcg/actuation blister powder for Congestion inhalation furosemide 40 mg tablet 60 mg PO QAM 10/26/19 09/27/24 History ipratropium bromide 42 mcg (0.06 2 spray intranasal BID PRN 10/26/19 09/27/24 History %) nasal spray Congestion levothyroxine 200 mcg tablet 200 mcg PO QAM 10/26/19 09/27/24 History pantoprazole 40 mg tablet,delayed 40 mg PO QAM 10/26/19 09/27/24 History release paroxetine HCl 20 mg tablet 40 mg PO QAM 10/26/19 09/27/24 History pravastatin 40 mg tablet 40 mg PO HS 10/26/19 09/27/24 History (Pravachol) ranolazine 1,000 mg 1,000 mg PO Q12H 10/26/19 09/27/24 History tablet,extended release,12 hr (Ranexa) cyanocobalamin (vitamin B-12) 500 500 mcg PO DAILY 12/05/20 09/27/24 History mcg lozenges (Vitamin B-12) isosorbide mononitrate 30 mg 90 mg PO QAM 12/05/20 09/27/24 History tablet,extended release 24 hr flaxseed oil 1,000 mg capsule 1,000 mg PO BID 03/25/21 09/27/24 History metoprolol tartrate 25 mg tablet 25 mg PO BID 03/25/21 09/27/24 History vit C 250 mg-vit E 200 unit-zinc 1 tablet PO BID 03/25/21 09/27/24 History 12.5 mg-copper 1 [id number] tablet (ICaps AREDS2 (copper citrate)) losartan 100 mg tablet 100 mg PO DAILY 04/05/23 09/27/24 History gabapentin 100 mg capsule 100 mg PO TID 06/27/24 09/27/24 History hydrochlorothiazide 25 mg tablet 25 mg PO DAILY 08/16/24 09/27/24 History latanoprost 0.005 % eye drops 1 drp LEFT EYE HS 08/16/24 09/27/24 History potassium chloride 10 mEq 10 meq PO DAILY 08/17/24 09/27/24 History tablet,extended release acetaminophen 500 mg tablet 1,000 mg PO HS 09/27/24 09/27/24 History aspirin 81 mg chewable tablet 1 tablet PO DAILY 09/27/24 09/27/24 History Allergies Allergy/AdvReac Type Severity Reaction Status Date / Time bacitracin Allergy Intermediate RASH Verified 09/27/24 11:07 adhesive tape Allergy Mild rash Verified 09/27/24 11:07 latex Allergy Mild RASH WITH Verified 09/27/24 11:07 BLISTERS neomycin AdvReac Mild redness/irr Verified 09/27/24 11:07 [From Neosporin itation ([id number])] polymyxin B AdvReac Mild redness/irr Verified 09/27/24 11:07 [From Neosporin iation ([id number])] Exam Narrative: 79-year-old female very alert pleasant. Two point discrimination in her right hand is greater than 8/greater than 8. Index is greater than 8/greater than 8 and in the long finger greater than 8/greater than 8. Ring finger is greater than 8/6 that the finger is 6/6. She has decreased light touch sensation over the radial forearm from the elbow to the wrist. Tinel's over the median nerve causes or tingling in the central to fingers of the right hand. Negative carpal tunnel compression test. Negative cubital tunnel Tinel's. Patient has mild thenar atrophy on the right relative to the left. 2+ radial pulse. Resp: Auscultation: clear to auscultation bilaterally Cardio: Rate: regular rate Rhythm: regular rhythm Assessment and Plan Assessment and plan (1) Right carpal tunnel syndrome: Code(s): G56.01 - Carpal tunnel syndrome, right upper limb Status: Acute Assessment and Plan: 79-year-old female who has work carpal tunnel syndrome. She has an elevated 2 point discrimination and positive EMG study. She has tried nonsurgical treatment and this has not improved her symptoms. She would like to proceed with surgery at this point. Surgical procedures well as the risks and complications were discussed in detail all questions were answered and we will proceed. 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 She will continue with her baby aspirin through the time surgery.
[2024-10-08] VITALS (8 sets, daily range): BP systolic 122–174; BP diastolic 59–76; PULSE 63–71; RESP 12–18; TEMP 36–36.1; O2SAT 95–100
[2024-10-08] MEDS: ACETAMINOPHEN 500 MG TABLET 1000 MG PO (06:25)
[2024-10-08] MEDS: LACTATED RINGERS 1,000 ML 30 ML IV CONT (06:30)
[2024-10-08] MEDS: KETOROLAC 15 MG/ML VIAL (*BKC) IV PUSH (06:35)
--- NOTE | 2024-10-08 07:05 | WPDHPUPDATE1 ---
History and Physical Update Update Date/Time: 10/08/24 07:05 History and Physical has been reviewed, including an updated exam of the patient. There are NO changes in the patient's condition. Risks, benefits, and alternatives have been discussed and questions answered. Patient agrees to proceed with procedure.
--- NOTE | 2024-10-08 07:15 | P.PNAN_ITS ---
Anes - Initial Pre Proc Eval Procedure: Operation Date: 10/08/24 07:30 Proposed Procedures p Right Carpal Tunnel Release - Aydin Pritchard MD Date/Time: 10/08/24 07:15 Surgeon: Aydin Pritchard MD Pre Op Diagnosis: Right Carpal Tunnel syndrome Patient Data Age: 79 Gender: F Height: 1.63 m Weight: 94.6 kg Last Vital Signs Temp 96.8 F L 10/08/24 06:12 Pulse 63 10/08/24 06:12 Resp 18 10/08/24 06:12 BP 122/64 10/08/24 06:12 Pulse Ox 95 10/08/24 06:12 O2 Del Method Room Air 10/08/24 06:12 Allergies Allergy/AdvReac Type Severity Reaction Status Date / Time bacitracin Allergy Intermediate RASH Verified 10/08/24 06:09 adhesive tape Allergy Mild rash Verified 10/08/24 06:09 latex Allergy Mild RASH WITH Verified 10/08/24 06:09 BLISTERS neomycin AdvReac Mild redness/irr Verified 10/08/24 06:09 [From Neosporin itation ([id number])] polymyxin B AdvReac Mild redness/irr Verified 10/08/24 06:09 [From Neosporin iation ([id number])] Home Medications Medication Instructions Recorded Confirmed Type famotidine 20 mg tablet 20 mg PO DAILY 10/26/19 09/27/24 History fluticasone propionate 50 2 inhalation inhalation HS PRN 10/26/19 09/27/24 History mcg/actuation blister powder for Congestion inhalation furosemide 40 mg tablet 60 mg PO QAM 10/26/19 09/27/24 History ipratropium bromide 42 mcg (0.06 2 spray intranasal BID PRN 10/26/19 09/27/24 History %) nasal spray Congestion levothyroxine 200 mcg tablet 200 mcg PO QAM 10/26/19 09/27/24 History pantoprazole 40 mg tablet,delayed 40 mg PO QAM 10/26/19 09/27/24 History release paroxetine HCl 20 mg tablet 40 mg PO QAM 10/26/19 09/27/24 History pravastatin 40 mg tablet 40 mg PO HS 10/26/19 09/27/24 History (Pravachol) ranolazine 1,000 mg 1,000 mg PO Q12H 10/26/19 09/27/24 History tablet,extended release,12 hr (Ranexa) cyanocobalamin (vitamin B-12) 500 500 mcg PO DAILY 12/05/20 09/27/24 History mcg lozenges (Vitamin B-12) isosorbide mononitrate 30 mg 90 mg PO QAM 12/05/20 09/27/24 History tablet,extended release 24 hr flaxseed oil 1,000 mg capsule 1,000 mg PO BID 03/25/21 09/27/24 History metoprolol tartrate 25 mg tablet 25 mg PO BID 03/25/21 09/27/24 History vit C 250 mg-vit E 200 unit-zinc 1 tablet PO BID 03/25/21 09/27/24 History 12.5 mg-copper 1 [id number] tablet (ICaps AREDS2 (copper citrate)) losartan 100 mg tablet 100 mg PO DAILY 04/05/23 09/27/24 History gabapentin 100 mg capsule 100 mg PO TID 06/27/24 09/27/24 History hydrochlorothiazide 25 mg tablet 25 mg PO DAILY 08/16/24 09/27/24 History latanoprost 0.005 % eye drops 1 drp LEFT EYE HS 08/16/24 09/27/24 History potassium chloride 10 mEq 10 meq PO DAILY 08/17/24 09/27/24 History tablet,extended release acetaminophen 500 mg tablet 1,000 mg PO HS 09/27/24 09/27/24 History aspirin 81 mg chewable tablet 1 tablet PO DAILY 09/27/24 09/27/24 History Patient hx anesthesia problems: none Family hx anesthesia problems: none Results Review: All pre-operative results and documents have been reviewed as part of the pre- operative evaluation. [facility] Past Medical History Medical History Angina pectoris Anxiety Arthritis Congestive heart failure the patient stated that she was diagnosed with CHF but he did not see any diagnosis under cardiology note. She is on diuretics. GERD (gastroesophageal reflux disease) High cholesterol HTN (hypertension) Hypothyroidism Neuropathy Thyroid disease Wears glasses Surgical History Surgical History H/O colonoscopy H/O total hysterectomy History of back surgery History of bladder surgery History of cataract surgery History of ERCP x3. She had stents placed which were subsequently removed in some type of the duct. Not sure if it is a common bile duct pancreatic duct or the liver. History of total knee replacement Left total knee arthroplasty Hx laparoscopic cholecystectomy S/P colonoscopic polypectomy S/P total knee arthroplasty right total knee arthroplasty today by Dr. Pritchard 12/15/2020 Family History Family History (Reviewed 09/12/24 @ 11:14 by Britany Francisco [facility]) Father COPD (chronic obstructive pulmonary disease) Heart disease Malignant neoplasm of prostate Hypertension Mother Heart disease Alzheimer's dementia Acute myocardial infarction Hypertension Other Diabetes mellitus Cancer Cerebrovascular accident Sibling Heart disease Unknown Diabetes mellitus Heart disease Cancer Cerebrovascular accident Hypertension Kidney disease Other Arthritis High cholesterol Social History Social History (Reviewed 09/12/24 @ 11:14 by Britany Francisco [facility]) Social History: the patient lives with her . 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 The patient is a full code. 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 The patient has 2 children 1 son and 1 daughter. The patient is a lifelong nonsmoker. It may be has 3 drinks of alcohol per year. Smoking status: Never smoker Second hand tobacco smoke exposure: Yes Alcohol intake: current Alcohol use details: wine yearly Substance use: current Substance use type: marijuana Other substance usage details: uses 2 gummies at night to sleep Last use: 08/15/24 Do You Feel Safe in your Home?: Yes Lack of Transportation: No Lack of Food: Never True Current Housing: I Have Housing Concerned About Future Housing: No Difficulty Paying Gas/Electric Bills: No Difficulty Paying for Meds: No Currently Unemployed: No Education: Associate Degree Difficulty w/ Childcare or Family Care: No Living arrangements: with family Additional living arrangements comments: Occupation/Education: retired Additional occupation/education comments: [place] Gender identity (if verbalized by the patient): Female Spiritual care concerns: No Anes - Eval Final PreProcedure Day of Procedure 10/08/24 07:15 Patient weight: obese Heart: regular rate and rhythm Lungs: clear to auscultation Airway: Mallampati scale class III Neurological: alert and oriented Last oral intake: >/= 8 hours ASA classification: III Emergent: no Anesthetic plan: proceed Anesthesia type and monitoring: general LMA and standard monitoring Results Review: All pre-operative results and documents have been reviewed as part of the pre- operative evaluation. Informed Consent: The patient's anesthetic plan and its attendant risks and benefits were discussed with the patient/family/POA. Questions were solicited and answers pro vided to the satisfaction of the patient/family/POA.
[2024-10-08] MEDS: ceFAZolin 2 GM/D5W 50 ML 2 GM/50 ML BAG IVPB (07:23)
[2024-10-08] MEDS: LIDOCAINE HCL 1% LOCAL INJ 20 ML VIAL 5 ML INFILTRATE (07:42)
--- NOTE | 2024-10-08 08:13 | P.OP_ITS ---
Procedure Note - Detailed Date of Procedure 10/08/24 Pre-op Diagnosis Right Carpal Tunnel syndrome Post-op Diagnosis Same Procedure Performed Right carpal tunnel release Surgeon Aydin Pritchard MD Anesthesia General Description of Procedure Patient was brought to the operating room and general anesthesia was adm inistered in the right arm prepped draped usual fashion. She received 2 g of Ancef preoperatively. Local anesthesia was administered of 1% lidocaine plain. Limb was exsanguinated tourniquet elevated to 250 mmHg. A 2 cm longitudinal incision was made at the base of the pine palm in line with the 4th ray radial border. Dissection was carried down through the superficial palmar fascia the transverse carpal ligament which was longitudinally incised. Complete release was achieved distally. Proximally subcutaneous fat was elevated off the distal volar forearm fascia and a [place] elevator passed underneath the fascia is from the underlying nerve. The fascia was then split for a distance of 3 cm proximal to the flexor crease of the wrist completing the decompression. The nerve did show some slight flattening under the proximal aspect of the transverse carpal ligament. Tourniquet was released. Wound was irrigated hemostasis was achieved skin closed with 5 0 nylon suture. Soft bulky dressing applied. Patient transferred to postop recovery room in stable condition. [facility] Billing Surgery - Charge Forward: Surgery Billing (Right carpal tunnel release)
--- NOTE | 2024-10-08 08:32 | SUR.PHASEI ---
0832: Simple mask removed.
== END 2024-10-08 09:50 | disposition home or self-care (01) ==
PROVIDERS: PCP Internal Medicine; Visit Provider Orthopaedic Surgery
PROC: (CPT 64721; principal; 2024-10-08 07:30)
DX: G56.01 Carpal tunnel syndrome, right upper limb (principal); E03.9 Hypothyroidism, unspecified; F41.9 Anxiety disorder, unspecified; I11.0 Hypertensive heart disease with heart failure; I50.9 Heart failure, unspecified; K21.9 Gastro-esophageal reflux disease without esophagitis; E78.00 Pure hypercholesterolemia, unspecified; E07.9 Disorder of thyroid, unspecified; F12.90 Cannabis use, unspecified, uncomplicated; E66.9 Obesity, unspecified; Z68.35 Body mass index [BMI] 35.0-35.9, adult; Z79.51 Long term (current) use of inhaled steroids; Z79.82 Long term (current) use of aspirin; Z98.890 Other specified postprocedural states; Z98.1 Arthrodesis status; Z90.49 Acquired absence of other specified parts of digestive tract; Z80.42 Family history of malignant neoplasm of prostate; Z82.49 Family history of ischemic heart disease and other diseases of the circulatory system
CPT/HCPCS: 64721; A9270; J0690; J1100; J1885; J2003; J2405; J2704; J3010; J7120

== ENCOUNTER 2024-10-10 08:45 | Outpatient (CLI) | payer MEDICARE, SELFPAY | END 2024-10-10 08:46 | disposition home or self-care (01) | PROVIDERS: PCP Internal Medicine; Visit Provider Internal Medicine | DX: R06.00 Dyspnea, unspecified (principal) | CPT/HCPCS: 94060; 94726; 94729 ==

== ENCOUNTER 2024-11-02 13:53 | Outpatient (CLI) | payer MEDICARE, SELFPAY ==
--- NOTE | ~2024-11-02 | CT_ITS ---
EXAMINATION:CT chest high resolution wo id DATE: 11/02/2024 14:12 INDICATION: Chronic dyspnea. Shortness of breath. TECHNIQUE: Computed tomography (CT) of the chest was performed without intravenous contrast. Automate d exposure control and iterative reconstruction technique were employed. The dose-length product (DLP ) was 186.67 mGy-cm. COMPARISON: Chest 2 views 09/19/24 FINDINGS: The lungs demonstrate minimal atelectasis. No bronchiectasis or honeycombing. Calcified rig ht lung nodules and calcified right hilar and mediastinal lymph nodes are consistent with old granulo matous disease. There is a 2 mm nodule in left upper lobe, likely benign. No pleural effusion. The he art size is normal. There are coronary artery calcifications. No pericardial effusion. There is a mod erate-sized sliding hiatal hernia. There are changes of cholecystectomy. Pneumobilia is noted, likely secondary to sphincterotomy. There is a 13 mm mass in left adrenal gland measuring low attenuation, consistent with an adenoma. There are old healed right rib fractures. There is severe thoracic spondy losis. IMPRESSION: 1. Moderate-sized sliding hiatal hernia. Reviewed, dictated and finalized at location A. ITUTE DIRECTOR
== END 2024-11-02 13:54 | disposition home or self-care (01) ==
PROVIDERS: PCP Internal Medicine; Visit Provider Internal Medicine
DX: J84.10 Pulmonary fibrosis, unspecified (principal); K44.9 Diaphragmatic hernia without obstruction or gangrene
CPT/HCPCS: 71250

== ENCOUNTER 2024-12-21 15:56 | Outpatient (CLI) | payer MEDICARE, SELFPAY ==
--- NOTE | ~2024-12-21 | XR_ITS ---
CHEST RADIOGRAPH, PA AND LATERAL CLINICAL HISTORY: Cough/ sob/ wheezing/ congestion x2 weeks . COMPARISON: 09/19/2024 TECHNIQUE: PA and lateral views of the chest. FINDINGS The cardiomediastinal silhouette is unremarkable. The lungs are clear. Visualized osseous structures and soft tissues are unremarkable. IMPRESSION: No focal infiltrate or effusion. Reviewed, dictated and finalized at location A. LING BOX PERSON
--- OUTSIDE RECORDS SUMMARY | 2024-12-21 16:01 | XMS_ITS ---
Author Organization [facility] Address [address] [place], [place] [id number] Care Team Providers Care Director Of Special Education Name Role Phone LISA BUTLER Unavailable [phone] Janeth Viramontes Unavailable Unavailable Allergies Allergen (clinical drug ingredient) Drug/Non Drug Allergy documented on EMR Reaction Allergy Type Onset Date Status cefadroxil Duricef (uncoded) Unknown Allergy 09/04/2012 active Bactroban Unknown Drug Allergy 12/13/2014 active Latex Latex Unknown Allergy 12/16/2014 active REASON FOR VISIT The patient had an NCV/EMG that showed neuropathy. She has been taking gabapentin and it has helpedwith her night cramps in her legs., Patient presents for at-risk foot care . The patient has painful toenails and calluses that are causing difficulty with ambulation and shoegear. The onset is gradual Medications Medication SIG (Take, Route, Frequency, Duration) Notes Start Date End Date Status Furosemide 40 MG Oral Tablet ORAL furosemide 40 MG Oral TabletOriginal Medicationfurosemide 40 MG Oral Tablet *Reorder from [employer] for eRx and Interaction Alerts* 0 Active levothyroxine sodium 0.2 MG Oral Tablet ORAL levothyroxine sodium 0.2 MG Oral TabletOriginal Medicationlevothyroxine sodium 0.2 MG Oral Tablet *Reorder from [facility] for eRx and Interaction Alerts* 0 Active Medrol Dosepak ORAL Medrol DosepakOr iginal MedicationMedrol Dosepak *Reorder from [facility] for eRx and Interaction Alerts* 3 Active urea 400 MG/ML Topical Cream CUTANEOUS urea 400 MG/ML Topical CreamOriginal Medicationurea 400 MG/ML Topical Cream *Reorder from [facility] for eRx and Interaction Alerts* 3 Active pantoprazole 40 MG Delayed Release Oral Tablet ORAL pantoprazole 40 MG Delayed Release Oral TabletOriginal Medicationpantoprazole 40 MG Delayed Release Oral Tablet *Reorder from [facility] for eRx and Interaction Alerts* 0 Active clotrimazole 10 MG/ML Topical Solution CUTANEOUS clotrimazole 10 MG/ML Topical SolutionOriginal Medicationclotrimazole 10 MG/ML Topical Solution *Reorder from [facility] for eRx and Interaction Alerts* 4 Active ipratropium bromide 0.042 MG/ACTUAT Metered Dose Nasal Dewar ipratropium bromide 0.042 MG/ACTUAT Metered Dose Nasal SprayOriginal Medicationipratropium bromide 0.042 MG/ACTUAT Metered Dose Nasal Dewar *Reorder from [facility] for eRx and Interaction Alerts* 0 Active calcium carbonate 600 MG / cholecalciferol 125 UNT Oral Tablet ORAL calcium carbonate 600 MG / cholecalciferol 125 UNT Oral TabletOriginal Medicationcalcium carbonate 600 MG / cholecalciferol 125 UNT Oral Tablet *Reorder from [facility] for eRx and Interaction Alerts* 6 Active ciclopirox 80 MG/ML Topical Solution ciclopirox 80 MG/ML Topical SolutionOriginal Medicationciclopirox 80 MG/ML Topical Solution *Reorder from [facility] for eRx and Interaction Alerts* 7 Active aspirin 81 MG Delayed Release Oral Tablet ORAL aspirin 81 MG Delayed Release Oral TabletOriginal Medicationaspirin 81 MG Delayed Release Oral Tablet *Reorder from [facility] for eRx and Interaction Alerts* 6 Active Isosorbide Mononitrate 20 MG Oral Tablet ORAL isosorbide mononitrate 20 MG Oral TabletOriginal Medicationisosorbide mononitrate 20 MG Oral Tablet *Reorder from [facility] for eRx and Interaction Alerts* 0 Active Famotidine 20 MG Oral Tablet ORAL famotidine 20 MG Oral TabletOriginal Medicationfamotidine 20 MG Oral Tablet *Reorder from [facility] for eRx and Interaction Alerts* 0 Active amlodipine 10 MG Oral Tablet ORAL amlodipine 10 MG Oral TabletOriginal Medicationamlodipine 10 MG Oral Tablet *Reorder from [facility] for eRx and Interaction Alerts* 0 Active Lisinopril 10 MG Oral Tablet ORAL lisinopril 10 MG Oral TabletOriginal Medicationlisinopril 10 MG Oral Tablet *Reorder from [facility] for eRx and Interaction Alerts* 0 Active 12 HR ranolazine 1000 MG Extended Release Oral Tablet [Ranexa] ORAL 12 HR ranolazine 1000 MG Extended Release Oral Tablet [Ranexa]Original Xzdnrvavop20 HR ranolazine 1000 MG Extended Release Oral Tablet [Ranexa] *Reorder from [facility] for eRx and Interaction Alerts* 6 Active Encounters Encounter Location Date Provider Diagnosis [facility] [address] [place], [place] [id number] 06/25/2024 LISA KAILEYK Tinea unguium B35.1 ; Pain in right foot M79.671 ; Pain in left foot M79.672 ; Atherosclerosis of [place] arteries of extremities with intermittent claudication, bilateral legs I70.213 and Acquired keratosis [keratoderma] palmaris et plantaris L85.1 Assessments Encounter Date Diagnosis (ICD Code) Assessment Notes Treatment Notes Treatment Clinical Notes Section Notes 06/25/2024 Tinea unguium (ICD-10 - B35.1) Nails 1-5 Bilateral were debrided extensively with nail nippers and emery board, reducing length and girth to pink healthy tissue with any subungual debris and necrotic tissue removed 06/25/2024 Pain in right foot (ICD-10 - M79.671) 06/25/2024 Pain in left foot (ICD-10 - M79.672) 06/25/2024 Atherosclerosis of [place] arteries of extremities with intermittent claudication, bilateral legs (ICD-10 - I70.213) 06/25/2024 Acquired keratosis [keratoderma] palmaris et plantaris (ICD-10 - L85.1) A total of 2 corns or calluses, as described in the note above, were cut and pared utilizing a #15 blade Plan Of Treatment Treatment Notes Assessment Notes Tinea unguium Nails 1-5 Bilateral were debrided extensively with nail nippers and emery board, reducing length and girth to pink healthy tissue with any subungual debris and necrotic tissue removed Acquired keratosis [keratode rma] palmaris et plantaris A total of 2 corns or calluses, as described in the note above, were cut and pared utilizing a #15 blade Next Appt Details Follow Up: 10 - 12 weeks, Re ason: At-Risk Foot care, sooner if problems develop. Provider Name:LISA BUTLER, 10:30:00 AM, [address], [address], [id number], Progress Notes * FREDDIE MARTÍNEZ SDOB:[birth year] (78 yo F)Acc No.[id number]:06/25/2024 Patient: FREDDIE QUARLES Provider: Ramirez Butler DPM :1945 A ge:78 Y S ex:Female Date:06/25/2024 Address:[address] [place] [address] Subjective: * Chief Complaints: * 1 . The patient had an NCV/EMG that showed neuropathy. She has been taking gabapentin and it has helped with her night cramps in her legs.. 2. Patient presents for at-risk foot care . The patient has painful toenails and calluses that are causing difficulty with ambulation and shoegear. The onset is gradual. * HPI: H PI: General care P atient presents to the office for at risk foot care. Patient states that their nails are thickened, elongated and painful. Patient states that it is aggravated by shoe gear. Onset is gradual. Patient denies being diabetic., Patient denies taking prescription blood thinners but does take a daily aspirin., Date last seen by Dr. Viramontes was 04/2024., Initials [facility]. * Medical History: * Medications: T aking Furosemide 40 MG Oral Tablet ORAL , Notes to Pharmacist: furosemide 40 MG Oral TabletOriginal Medicationfurosemide 40 MG Oral Tablet *Reorder from [facility] for eRx and Interaction Alerts*, Taking Famotidine 20 MG Oral Tablet ORAL , Notes to Pharmacist: famotidine 20 MG Oral TabletOriginal Medicationfamotidine 20 MG Oral Tablet *Reorder from [facility] for eRx and Interaction Alerts*, Taking Isosorbide Mononitrate 20 MG Oral Tablet ORAL , Notes to Pharmacist: isosorbide mononitrate 20 MG Oral TabletOriginal Medicationisosorbide mononitrate 20 MG Oral Tablet *Reorder from [facility] for eRx and Interaction Alerts*, Taking Lisinopril 10 MG Oral Tablet ORAL , Notes to Pharmacist: lisinopril 10 MG Oral TabletOriginal Medicationlisinopril 10 MG Oral Tablet *Reorder from [facility] for eRx and Interaction Alerts*, Taking 12 HR ranolazine 1000 MG Extended Release Oral Tablet [Ranexa] ORAL , Notes to Pharmacist: 12 HR ranolazine 1000 MG Extended Release Oral Tablet [Ranexa]Original [id number] HR ranolazine 1000 MG Extended Release Oral Tablet [Ranexa] *Reorder from [facility] for eRx and Interaction Alerts*, Taking amlodipine 10 MG Oral Tablet ORAL , Notes to Pharmacist: amlodipine 10 MG Oral TabletOriginal Medicationamlodipine 10 MG Oral Tablet *Reorder from [facility] for eRx and Interaction Alerts*, Taking aspirin 81 MG Delayed Release Oral Tablet ORAL , Notes to Pharmacist: aspirin 81 MG Delayed Release Oral TabletOriginal Medicationaspirin 81 MG Delayed Release Oral Tablet *Reorder from [facility] for eRx and Interaction Alerts*, Taking calcium carbonate 600 MG / cholecalciferol 125 UNT Oral Tablet ORAL , Notes to Pharmacist: calcium carbonate 600 MG / cholecalciferol 125 UNT Oral TabletOriginal Medicationcalcium carbonate 600 MG / cholecalciferol 125 UNT Oral Tablet *Reorder from [facility] for eRx and Interaction Alerts*, Taking ciclopirox 80 MG/ML Topical Solution , Notes to Pharmacist: ciclopirox 80 MG/ML Topical SolutionOriginal Medicationciclopirox 80 MG/ML Topical Solution *Reorder from [facility] for eRx and Interaction Alerts*, Taking clotrimazole 10 MG/ML Topical Solution CUTANEOUS , Notes to Pharmacist: clotrimazole 10 MG/ML Topical SolutionOriginal Medicationclotrimazole 10 MG/ML Topical Solution *Reorder from [facility] for eRx and Interaction Alerts*, Taking ipratropium bromide 0.042 MG/ACTUAT Metered Dose Nasal Dewar , Notes to Pharmacist: ipratropium bromide 0.042 MG/ACTUAT Metered Dose Nasal SprayOriginal Medicationipratropium bromide 0.042 MG/ACTUAT Metered Dose Nasal Dewar *Reorder from [facility] for eRx and Interaction Alerts*, Taking levothyroxine sodium 0.2 MG Oral Tablet ORAL , Notes to Pharmacist: levothyroxine sodium 0.2 MG Oral TabletOriginal Medicationlevothyroxine sodium 0.2 MG Oral Tablet *Reorder from [facility] for eRx and Interaction Alerts*, Taking Medrol Dosepak ORAL , Notes to Pharmacist: Medrol DosepakOriginal MedicationMedrol Dosepak *Reorder from [facility] for eRx and Interaction Alerts*, Taking pantoprazole 40 MG Delayed Release Oral Tablet ORAL , Notes to Pharmacist: pantoprazole 40 MG Delayed Release Oral TabletOriginal Medicationpantoprazole 40 MG Delayed Release Oral Tablet *Reorder from [facility] for eRx and Interaction Alerts*, Taking urea 400 MG/ML Topical Cream CUTANEOUS , Notes to Pharmacist: urea 400 MG/ML Topical CreamOriginal Medicationurea 400 MG/ML Topical Cream *Reorder from [facility] for eRx and Interaction Alerts* * Allergies: D uricef: Allergy - Onset Date 09/04/2012, Bactroban: Allergy - Onset Date 12/13/2014, Latex: Allergy - Onset Date 12/16/2014. Objective: * Examination: C onstitutional: Constitutional T he patient is awake, alert, well developed, well groomed and well nourished.. D ermatologic: Skin findings: S kin is thin, atrophic and lacking pedal hair.. Hypertrophic / hyperkeratotic lesion: p lantar aspect of the left and right 5th metatarsal heads. Nail pathology: N ails 1-5 bilateral are elongated, thick, discolored, and dystrophic with subungual debris. They are painful to palpation. ? V ascular: Dorsalis pedis pulse: 0 /4, bilateral. Posterior tibial pulse: 1 /4, bilaterally. Capillary refill: g reater than 3 seconds. Edema: N o edema, bilateral. N eurologic: Gross sensation G ross sensation is intact to light touch..? M usculoskeletal: Muscle Strength M uscle strength is 5/5 in regards to dorsiflexion, plantarflexion, inversion, and eversion in bilateral lower extremities.. ? Assessment: * Assessment: 1. T inea unguium - B35.1 (Primary) 2 . P ain in right foot - M79.671 3 . P ain in left foot - M79.672 4 . A therosclerosis of [place] arteries of extremities with intermittent claudication, bilateral legs - I70.213 5 . A cquired keratosis [keratoderma] palmaris et plantaris - L85.1 Plan: * Treatment: 2. A cquired keratosis [keratoderma] palmaris et plantaris Notes: A total of 2 corns or calluses, as described in the note above, were cut and pared utilizing a #15 blade * Procedure Codes: 1 1056 TRIM SKIN LESIONS, 2 TO 4, Modifiers: Q8 , 90367 DEBRIDE NAIL, 6 OR MORE, Modifiers: 59 , Q8 * Follow Up: 1 0 - 12 weeks (Reason: At-Risk Foot care, sooner if problems develop.) * Billing Information: * Visit Code: * Procedure Codes: 50607 TRIM SKIN LESIONS, 2 TO 4. Modifiers: Q8 58115 DEBRIDE NAIL, 6 OR MORE. Modifiers: 59, Q8 * Sign off status: Completed true * Provider: Ramirez Butler DPM Date: 0 06/25/2024 Generated for Santi torres/Milton/Kelton on: 0 12/21/2024 04:01 PM LIBRARY SERVICES ASSISTANT History and Physical Notes * HPI (History of Present Illness) Category Sub-Category Detail Notes Category Not es HPI General care Patient presents to the office for at risk foot care. Patient states that their nails are thickened, elongated and painful. Patient states that it is aggravated by shoe gear. Onset is gradual. Patient denies being diabetic., Patient denies taking prescription blood thinners but does take a daily aspirin., Date last seen by Dr. Viramontes was 04/2024., Initials [facility] Examination Category Sub-Category Detail Notes Category Not es Dermatologic Skin findings: Skin is thin, at rophic and lacking pedal hair. Nail pathology: Nails 1-5 bilateral are elongated, thick, discolored, and dystrophic with subungual debris. They are painful to palpation Hypertrophic / hyperkeratotic lesion: pl wolf aspect of the left and right 5th metatarsal heads Neurologic Gross sensation Gross sensation is intact to light touch. Vascular Dorsalis pedis pulse: 0/4, bilateral Edema: No edema, bilateral Capillary refill: greater than 3 secon ds Posterior tibial pulse: 1/4, bilaterally Musculoskeletal Muscle Strength Muscle strength is 5/5 in regards to dorsiflexion, plantarflexion, inversion, and eversion in bilateral lower extremities. Constitutional Constitutional The patient is a wake, alert, well developed, well groomed and well nourished.
--- OUTSIDE RECORDS SUMMARY | 2024-12-21 16:01 | XMS_ITS ---
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 The patient has painful toenails that cause difficulty with ambulation and shoegear. The onset is gradual Medications Medication SIG (Take, Route, Frequency, Duration) Notes Start Date End Date Status Isosorbide Mononitrate 20 MG Oral Tablet ORAL isosorbide mononitrate 20 MG Oral TabletOriginal Medicationisosorbide mononitrate 20 MG Oral Tablet *Reorder from [facility] for eRx and Interaction Alerts* 0 Active 12 HR ranolazine 1000 MG Extended Release Oral Tablet [Ranexa] ORAL 12 HR ranolazine 1000 MG Extended Release Oral Tablet [Ranexa]Original [id number] HR ranolazine 1000 MG Extended Release Oral Tablet [Ranexa] *Reorder from [facility] for eRx and Interaction Alerts* 6 Active Lisinopril 10 MG Oral Tablet ORAL lisinopril 10 MG Oral TabletOriginal Medicationlisinopril 10 MG Oral Tablet *Reorder from [facility] for eRx and Interaction Alerts* 0 Active aspirin 81 MG Delayed Release Oral Tablet ORAL aspirin 81 MG Delayed Release Oral TabletOriginal Medicationaspirin 81 MG Delayed Release Oral Tablet *Reorder from [facility] for eRx and Interaction Alerts* 6 Active amlodipine 10 MG Oral Tablet ORAL amlodipine 10 MG Oral TabletOriginal Medicationamlodipine 10 MG Oral Tablet *Reorder from [facility] for eRx and Interaction Alerts* 0 Active pantoprazole 40 MG Delayed Release Oral Tablet ORAL pantoprazole 40 MG Delayed Release Oral TabletOriginal Medicationpantoprazole 40 MG Delayed Release Oral Tablet *Reorder from [facility] for eRx and Interaction Alerts* 0 Active Famotidine 20 MG Oral Tablet ORAL famotidine 20 MG Oral TabletOriginal Medicationfamotidine 20 MG Oral Tablet *Reorder from [facility] for eRx and Interaction Alerts* 0 Active Medrol Dosepak ORAL Medrol DosepakOr iginal MedicationMedrol Dosepak *Reorder from [facility] for eRx and Interaction Alerts* 3 Active urea 400 MG/ML Topical Cream CUTANEOUS urea 400 MG/ML Topical CreamOriginal Medicationurea 400 MG/ML Topical Cream *Reorder from [facility] for eRx and Interaction Alerts* 3 Active Furosemide 40 MG Oral Tablet ORAL furosemide 40 MG Oral TabletOriginal Medicationfurosemide 40 MG Oral Tablet *Reorder from [facility] for eRx and Interaction Alerts* 0 Active ciclopirox 80 MG/ML Topical Solution ciclopirox 80 MG/ML Topical SolutionOriginal Medicationciclopirox 80 MG/ML Topical Solution *Reorder from [facility] for eRx and Interaction Alerts* 7 Active calcium carbonate 600 MG / cholecalciferol 125 UNT Oral Tablet ORAL calcium carbonate 600 MG / cholecalciferol 125 UNT Oral TabletOriginal Medicationcalcium carbonate 600 MG / cholecalciferol 125 UNT Oral Tablet *Reorder from [facility] for eRx and Interaction Alerts* 6 Active clotrimazole 10 MG/ML Topical Solution CUTANEOUS clotrimazole 10 MG/ML Topical SolutionOriginal Medicationclotrimazole 10 MG/ML Topical Solution *Reorder from [facility] for eRx and Interaction Alerts* 4 Active levothyroxine sodium 0.2 MG Oral Tablet ORAL levothyroxine sodium 0.2 MG Oral TabletOriginal Medicationlevothyroxine sodium 0.2 MG Oral Tablet *Reorder from [facility] for eRx and Interaction Alerts* 0 Active ipratropium bromide 0.042 MG/ACTUAT Metered Dose Nasal [place] ipratropium bromide 0.042 MG/ACTUAT Metered Dose Nasal SprayOriginal Medicationipratropium bromide 0.042 MG/ACTUAT Metered Dose Nasal [place] *Reorder from [facility] for eRx and Interaction Alerts* 0 Active Encounters Encounter Location Date Provider Diagnosis [facility] [address] [place], [place] [id number] 09/17/2024 LISA SNOOK Tinea unguium B35.1 ; Pain in right toe(s) M79.674 ; Pain in left toe(s) M79.675 and Atherosclerosis of [place] arteries of extremities with intermittent claudication, bilateral legs I70.213 Assessments Encounter Date Diagnosis (ICD Code) Assessment Notes Treatment Notes Treatment Clinical Notes Section Notes 09/17/2024 Tinea unguium (ICD-10 - B35.1) FUNGAL TOENAILS: Discussed various treatment options for fungal toenails including debridement, topical antifungals, oral antifungals, toenail avulsion, or toenail matrixectomy. NAIL DEBRIDEMENT: Nails 1-5 Bilateral were debrided extensively with nail nippers and emery board, reducing length and girth to pink healthy tissue with any subungual debris and necrotic tissue removed 09/17/2024 Pain in right toe(s) (ICD-10 - M79.674) 09/17/2024 Pain in left toe(s) (ICD-10 - M79.675) 09/17/2024 Atherosclerosis of [place] arteries of extremities with intermittent claudication, bilateral legs (ICD-10 - I70.213) Plan Of Treatment Treatment Notes Assessment Notes Tinea unguium FUNGAL TOENAILS: Discussed various treatment options for fungal toenails including debridement, topical antifungals, oral antifungals, toenail avulsion, or toenail matrixectomy. NAIL DEBRIDEMENT: Nails 1-5 Bilateral were debrided extensively with nail nippers and emery board, reducing length and girth to pink healthy tissue with any subungual debris and necrotic tissue removed Next Appt Details Follow Up: 10-12 Weeks, Reas on: At Risk Foot care, sooner if problems arise Provider Name:LISA BUTLER, 10:30:00 AM, [address], [address], [id number], Progress Notes * FREDDIE MARTÍNEZ SDOB:[birth year] (79 yo F)Acc No.[id number]:09/17/2024 Patient: FREDDIE QUARLES Provider: Ramirez Butler DPM :1945 A ge:79 Y S ex:Female Date:09/17/2024 Address:[address] [place] [address] Subjective: * Chief Complaints: * Adithya olivera presents for at-risk foot care . The patient has painful toenails that cause difficulty with ambulation and shoegear. The onset is gradual * HPI: H PI: General care Adithya olivera presents to the office for at risk foot care. Patient states that their nails are thickened, elongated and painful. Patient states that it is aggravated by shoe gear. Onset is gradual. Patient denies being diabetic., Patient denies taking prescription blood thinners but does take a daily aspirin., Date last seen by Dr. Viramontes was June 2024., Initials LB. sample. * Medical History: * Surgical History: * Hospitalization/Major Diagno stic Procedure: * Family History: F ather: PRN - Father: :: Cancer,,known absent , :: Diabetes,,known absent , :: Hypertension,,known absent . M other: PRN - Mother: :: Diabetes,,known absent , :: Hypertension,,known absent . B rother: SIB - Brother: :: Arthritis,,known absent , :: Hypertension,,known absent , :: Heart Disease < 55 yrs,,known absent . S ister: SIB - Sister: :: Arthritis,,known absent , :: Heart Disease < 55 yrs,,known absent , :: Hypertension,,known absent . * Social History: M igrated Social History: M igrated Social History: Alcohol intake : , History of tobacco use : , Smoking Status : Never smoked. * Medications: T akingFurosemide 40 MG Oral Tablet ORAL , Notes to Pharmacist: furosemide 40 MG Oral TabletOriginal Medicationfurosemide 40 MG Oral Tablet *Reorder from [facility] for eRx and Interaction Alerts*Famotidine 20 MG Oral Tablet ORAL , Notes to Pharmacist: famotidine 20 MG Oral TabletOriginal Medicationfamotidine 20 MG Oral Tablet *Reorder from [facility] for eRx and Interaction Alerts*Isosorbide Mononitrate 20 MG Oral Tablet ORAL , Notes to Pharmacist: isosorbide mononitrate 20 MG Oral TabletOriginal Medicationisosorbide mononitrate 20 MG Oral Tablet *Reorder from [facility] for eRx and Interaction Alerts*Lisinopril 10 MG Oral Tablet ORAL , Notes to Pharmacist: lisinopril 10 MG Oral TabletOriginal Medicationlisinopril 10 MG Oral Tablet *Reorder from [facility] for eRx and Interaction Alerts*12 HR ranolazine 1000 MG Extended Release Oral Tablet [Ranexa] ORAL , Notes to Pharmacist: 12 HR ranolazine 1000 MG Extended Release Oral Tablet [Ranexa]Original [id number] HR ranolazine 1000 MG Extended Release Oral Tablet [Ranexa] *Reorder from [facility] for eRx and Interaction Alerts*amlodipine 10 MG Oral Tablet ORAL , Notes to Pharmacist: amlodipine 10 MG Oral TabletOriginal Medicationamlodipine 10 MG Oral Tablet *Reorder from [facility] for eRx and Interaction Alerts*aspirin 81 MG Delayed Release Oral Tablet ORAL , Notes to Pharmacist: aspirin 81 MG Delayed Release Oral TabletOriginal Medicationaspirin 81 MG Delayed Release Oral Tablet *Reorder from [facility] for eRx and Interaction Alerts*calcium carbonate 600 MG / cholecalciferol 125 UNT Oral Tablet ORAL , Notes to Pharmacist: calcium carbonate 600 MG / cholecalciferol 125 UNT Oral TabletOriginal Medicationcalcium carbonate 600 MG / cholecalciferol 125 UNT Oral Tablet *Reorder from [facility] for eRx and Interaction Alerts*ciclopirox 80 MG/ML Topical Solution , Notes to Pharmacist: ciclopirox 80 MG/ML Topical SolutionOriginal Medicationciclopirox 80 MG/ML Topical Solution *Reorder from [facility] for eRx and Interaction Alerts*clotrimazole 10 MG/ML Topical Solution CUTANEOUS , Notes to Pharmacist: clotrimazole 10 MG/ML Topical SolutionOriginal Medicationclotrimazole 10 MG/ML Topical Solution *Reorder from [facility] for eRx and Interaction Alerts*ipratropium bromide 0.042 MG/ACTUAT Metered Dose Nasal [place] , Notes to Pharmacist: ipratropium bromide 0.042 MG/ACTUAT Metered Dose Nasal SprayOriginal Medicationipratropium bromide 0.042 MG/ACTUAT Metered Dose Nasal [place] *Reorder from [facility] for eRx and Interaction Alerts*levothyroxine sodium 0.2 MG Oral Tablet ORAL , Notes to Pharmacist: levothyroxine sodium 0.2 MG Oral TabletOriginal Medicationlevothyroxine sodium 0.2 MG Oral Tablet *Reorder from [facility] for eRx and Interaction Alerts*Medrol Dosepak ORAL , Notes to Pharmacist: Medrol DosepakOriginal MedicationMedrol Dosepak *Reorder from [facility] for eRx and Interaction Alerts*pantoprazole 40 MG Delayed Release Oral Tablet ORAL , Notes to Pharmacist: pantoprazole 40 MG Delayed Release Oral TabletOriginal Medicationpantoprazole 40 MG Delayed Release Oral Tablet *Reorder from [facility] for eRx and Interaction Alerts*urea 400 MG/ML Topical Cream CUTANEOUS , Notes to Pharmacist: urea 400 MG/ML Topical CreamOriginal Medicationurea 400 MG/ML Topical Cream *Reorder from [facility] for eRx and Interaction Alerts*Medication List reviewed and reconciled with the patientTaking Furosemide 40 MG Oral Tablet ORAL , Notes to Pharmacist: furosemide 40 MG Oral TabletOriginal Medicationfurosemide 40 MG Oral Tablet *Reorder from [facility] for eRx and Interaction Alerts*Taking Famotidine 20 MG Oral Tablet ORAL , Notes to Pharmacist: famotidine 20 MG Oral TabletOriginal Medicationfamotidine 20 MG Oral Tablet *Reorder from [facility] for eRx and Interaction Alerts*Taking Isosorbide Mononitrate 20 MG Oral Tablet ORAL , Notes to Pharmacist: isosorbide mononitrate 20 MG Oral TabletOriginal Medicationisosorbide mononitrate 20 MG Oral Tablet *Reorder from [facility] for eRx and Interaction Alerts*Taking Lisinopril 10 MG Oral Tablet ORAL , Notes to Pharmacist: lisinopril 10 MG Oral TabletOriginal Medicationlisinopril 10 MG Oral Tablet *Reorder from [facility] for eRx and Interaction Alerts*Taking 12 HR ranolazine 1000 MG Extended Release Oral Tablet [Ranexa] ORAL , Notes to Pharmacist: 12 HR ranolazine 1000 MG Extended Release Oral Tablet [Ranexa]Original [id number] HR ranolazine 1000 MG Extended Release Oral Tablet [Ranexa] *Reorder from [facility] for eRx and Interaction Alerts*Taking amlodipine 10 MG Oral Tablet ORAL , Notes to Pharmacist: amlodipine 10 MG Oral TabletOriginal Medicationamlodipine 10 MG Oral Tablet *Reorder from [facility] for eRx and Interaction Alerts*Taking aspirin 81 MG Delayed Release Oral Tablet ORAL , Notes to Pharmacist: aspirin 81 MG Delayed Release Oral TabletOriginal Medicationaspirin 81 MG Delayed Release Oral Tablet *Reorder from [facility] for eRx and Interaction Alerts*Taking calcium carbonate 600 MG / cholecalciferol 125 UNT Oral Tablet ORAL , Notes to Pharmacist: calcium carbonate 600 MG / cholecalciferol 125 UNT Oral TabletOriginal Medicationcalcium carbonate 600 MG / cholecalciferol 125 UNT Oral Tablet *Reorder from [facility] for eRx and Interaction Alerts*Taking ciclopirox 80 MG/ML Topical Solution , Notes to Pharmacist: ciclopirox 80 MG/ML Topical SolutionOriginal Medicationciclopirox 80 MG/ML Topical Solution *Reorder from [facility] for eRx and Interaction Alerts*Taking clotrimazole 10 MG/ML Topical Solution CUTANEOUS , Notes to Pharmacist: clotrimazole 10 MG/ML Topical SolutionOriginal Medicationclotrimazole 10 MG/ML Topical Solution *Reorder from [facility] for eRx and Interaction Alerts*Taking ipratropium bromide 0.042 MG/ACTUAT Metered Dose Nasal [place] , Notes to Pharmacist: ipratropium bromide 0.042 MG/ACTUAT Metered Dose Nasal SprayOriginal Medicationipratropium bromide 0.042 MG/ACTUAT Metered Dose Nasal [place] *Reorder from [facility] for eRx and Interaction Alerts*Taking levothyroxine sodium 0.2 MG Oral Tablet ORAL , Notes to Pharmacist: levothyroxine sodium 0.2 MG Oral TabletOriginal Medicationlevothyroxine sodium 0.2 MG Oral Tablet *Reorder from [facility] for eRx and Interaction Alerts*Taking Medrol Dosepak ORAL , Notes to Pharmacist: Medrol DosepakOriginal MedicationMedrol Dosepak *Reorder from [facility] for eRx and Interaction Alerts*Taking pantoprazole 40 MG Delayed Release Oral Tablet ORAL , Notes to Pharmacist: pantoprazole 40 MG Delayed Release Oral TabletOriginal Medicationpantoprazole 40 MG Delayed Release Oral Tablet *Reorder from [facility] for eRx and Interaction Alerts*Taking urea 400 MG/ML Topical Cream CUTANEOUS , Notes to Pharmacist: urea 400 MG/ML Topical CreamOriginal Medicationurea 400 MG/ML Topical Cream *Reorder from [facility] for eRx and Interaction Alerts*Medication List reviewed and reconciled with the patient * Allergies: D uricef: Allergy - Onset Date 09/04/2012actroban: Allergy - Onset Date 12/13/2014Latex: Allergy - Onset Date 12/16/2014no[Allergies Verified] Objective: * Vitals: * Examination: C onstitutional: Constitutional T he patient is awake, alert, well developed, well groomed and well nourished. D ermatologic: Skin findings: S kin is thin, atrophic and lacking pedal hair. Nail pathology: N ails 1, 2, 3, 4, and 5 bilateral are elongated, thick, discolored, and dystrophic with subungual debris. They are painful to palpation. ? V ascular: Dorsalis pedis pulse: 1 /4 b ilateral. Posterior tibial pulse: 0 /4 b ilateral. Capillary refill: g reater than 3 seconds. Edema: N o edema, bilateral. N eurologic: Gross sensation G ross sensation is intact to light touch.? M usculoskeletal: Muscle Strength M uscle strength is 5/5 in regards to dorsiflexion, plantarflexion, inversion, and eversion in bilateral lower extremities. ? Assessment: * Assessment: 1. T inea unguium - B35.1 (Primary) 2 . P ain in right toe(s) - M79.674? 3. P ain in left toe(s) - M79.675 4 . A therosclerosis of [place] arteries of extremities with intermittent claudication, bilateral legs - I70.213 Plan: * Treatment: * Procedure Codes: 1 1721 DEBRIDE NAIL, 6 OR MORE, Modifiers: Q8 * Follow Up: 1 0-12 Weeks (Reason: At Risk Foot care, sooner if problems arise) * Billing Information: * Visit Code: * Procedure Codes: 49000 DEBR[place] NAIL, 6 OR MORE. 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 Viramontes was June 2024., Initials LB sample Examination Category Sub-Category Detail Notes Category Not es Dermatologic Skin findings: Skin is thin, at rophic and lacking pedal hair Nail pathology: Nails 1, 2, 3, 4, an d 5 bilateral are elongated, thick, discolored, and dystrophic with subungual debris. They are painful to palpation Neurologic Gross sensation Gross sensation is intact to light touch Vascular Dorsalis pedis pulse: 1/4 bilateral Edema: No edema, bilateral Capillary refill: greater than 3 secon ds Posterior tibial pulse: 0/4 bilateral Musculoskeletal Muscle Strength Muscle strength is 5/5 in regards to dorsiflexion, plantarflexion, inversion, and eversion in bilateral lower extremities Constitutional Constitutional The patient is a wake, alert, well developed, well groomed and well nourished
--- OUTSIDE RECORDS SUMMARY | 2024-12-21 16:01 | XMS_ITS | Patient Health Record ---
Author Organization [facility] Address [address] [place] [address] Care Team Providers Care Director Of Operations Home Health Name Role Phone Wander METCALF, Janeth Primary Care Provider Neema BOBO PA-C, GISELLE Unavailable ALLERGIES Allergen (clinical drug ingredient) Drug/Non Drug Allergy documented on EMR Reaction Allergy Type Onset Date Status Latex latex (uncoded) Unknown Allergy Acti ve tape (uncoded) rash Allergy Activ e bacitracin Bacitracin rash Drug Allergy Activ e Neosporin rash Drug Allergy Active REASON FOR REFERRAL No Information MEDICATIONS Medication SIG (Take, Route, Frequency, Duration) Notes Start Date End Date Status Atenolol 25 MG 0.5 tab Orally Once a day Active Pantoprazole Sodium 40 MG 1 tablet Orall y Once a day Active PARoxetine HCl 40 MG 1 tablet in the morning Orally Once a day Active PARoxetine HCl 40 MG 1 tablet in the morning Orally Once a day Active Ipratropium [place] HFA 17 MCG/ACT 2 puffs Inhalation Four times a day Active Aspirin 81 MG 1 tablet Orally Once a day Active Lisinopril 10 MG 1 tablet Orally Once a day Active Furosemide 40 MG as directed Orally Active Pravastatin Sodium 40 MG 1 tablet Orally Once a day Active Levothyroxine Sodium 200 MCG 1 tablet in the morning on an empty stomach Orally Once a day Active Ranolazine ER 1000 MG 1 tablet Orally Tw ice a day Active Flaxseed Oil Active Fluticasone Propionate 50 MCG/ACT 1 spray in each nostril Nasally Once a day Active Famotidine 20 MG 1 tablet at bedtime as needed Orally Once a day Active amLODIPine Besylate 10 MG 1 tablet Orall y Once a day Active Isosorbide Mononitrate ER 90 mg daily Active PreserVision AREDS 2 Active Calcium Active SOCIAL HISTORY Tobacco Use: Social History Observation Description Date Details (start date - stop date) Never Smoker NA - NA Sex Assigned At : Social History Observation Description Sex Assigned At Unknown Tobacco Use/Smoking Question Answer Notes Are you a nonsmoker PROBLEMS Problem Type ICD Code Onset Dates Problem Status W/U Status Risk SNOMED Code Notes Problem Functional dyspepsia (K30) Active confirmed Functional dyspepsia (3917061) 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 Spasm of sphincter of Oddi (30043883) PLAN OF TREATMENT Pending Test Test Name Order Date Endoscopic Retrograde Cholangiopancreato graphy (ERCP) 01/21/2020 Endoscopic Retrograde Cholangiopancreato graphy (ERCP) 02/13/2020 Insurance Providers Payer Name Payer Address Payer Phone Subscriber Number Group Number Insured Name Patient Relationship to Insured Coverage Start Date Coverage End Date Medicare-M O Medicare [address] [address] [place], [place] [id number] Betzy Juarez Self - patient is the insured [facility] [address] [place], [place] [id number] AhsanShiraBetzy Self - patient is the insured MEDICAL (GENERAL) HISTORY Medical History History ICD Code Cholelithiasis/cholecystitis Choledocholithiasis SOD/papillary stenosis Hypothyroidism Hypertension Hyperlipidemia GERD IBS Arthritis Surgical History Surgery Date(Month/Year) Cholecystectomy 2008 Hysterectomy 2012 Appendectomy ERCP Aliperti 07/02/13 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 Dual duct stents placed. Stents removed 07/04/13. ERCP 2008 no report- reportedly had ston e extraction EGD 2008 Left total knee replacement 2019 Back surgery 2014 Colonoscopy 2017 Left cataract 2016 Right cataract 2016
--- OUTSIDE RECORDS SUMMARY | 2024-12-21 16:01 | XMS_ITS | Data Portability ---
Author Organization [place] - [facility], Main Office Address [address] [place] [address] Care Team Providers Care Returns Processor Name Role Phone RUBENS MONTOYA Primary Care Provider [phone] RUBENS MONTOYA Referring Provider Assessment Encounter Date Assessment Date Assessment LastModified by Organization Details LastModified Time 03/16/2023 03/16/2023 patient returns. We last saw her 6 weeks ago. MRI scan demonstrated type 2 mid substance tear of supraspinatus full-thickness and rather severe tendinopathy infraspinatus. She received a Medrol Dosepak and was sent to physical therapy. She feels overall her pain is much better. When doing the physical therapy some exercises hurt others made her feel better. Currently, she she has no pain unless she does something with a rapid movement in the wrong direction using her right shoulder. She realizes that she can not lift heavy pains with that arm or full pot of coffee for example. She has accepted these limitations. She is working in the garden and has done some vacuuming in these activities do tend to make her shoulder little bit sore and she will take Tylenol for this once or twice a day. On exam today she has active elevation 140 external rotation 45 internal rotation T12. She does have mild soreness in the shoulder lowering the arm down. She has mild weakness with thumbs down abduction with mild pain mild to moderate weakness with external rotation. Belly press is normal. 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 I have discussed options with her. Again, surgical repair could be attempted but would have a fairly high failure rate predicted based on the location of the tear and the degree of diffuse tendinopathy of the tendons that would be repaired. Also this would be a very long recovery and she understands this and is fairly adamant that she will not wish to have surgery. If she develops a flare-up of symptoms and would like to have a cortisone shot that can be also of done which will give her some temporary relief. She is quite content at to proceed as she is doing now. She will continue with her home exercises emphasizing shoulder posture and I will see her back on as-needed basis. 20 minutes were spent in total care this patient more than half the time spent in [id number] care. Not available 03/16/2023 10:23:27 04/07/2023 04/07/2023 Impression: Patient has a fairly severe left proximal humerus fracture involving the surgical neck and shaft with comminution of the shaft but without segmental comminution. There is some translational displacement but the overall alignment is acceptable that healing would be expected with non operative management. The this will require longer period of time to heal than the usual minimally displaced impacted humeral neck fracture as involves the shaft. This will require a longer period of immobilization before starting range of motion as there is higher risk of nonunion. She will move the fingers through range of motion frequently. I have provided her with a cock-up splint which may give her wrist some support and comfort and this was applied and the possible radial neck radial head fracture will be managed with the arm sling. I have recommended that she purchase a foam wedge that she can put on her bed will help her sleep and more of a beach chair position and she [facility] 1 up. I recommended that she put a small pillow behind her left elbow to keep her elbow from extending from the weight of gravity while she is partially recumbent. She should try to keep the arm in the same position and her will help her keep position. She is not getting adequate pain control from the hydrocodone and Tylenol. She is going to stop the Tylenol I have given her prescription for 5 mg hydrocodones and she will take Tylenol 1000 mg every 6 hours on a scheduled basis for the next 2-3 weeks until her pain starts to subside. She does have a history of osteoporosis. She has taken Reclast for osteoporosis in the past. She is currently not taking any calcium supplementation and she knows of no contraindication to doing so. No history of kidney stones. I recommended that she take Citracal +D to [place] tablets a day in the time being. She will trying get a copy of her previous bone density test. I recommend that she take Margaret Colace and MiraLax for constipation prevention as long as she is on the oxycodone. We will check a 25 hydroxy vitamin-D level and supplement this if it was low. These instructions were written out for her. 40 minutes were spent in total care this patient with more than half of this time spent in [id number] care. Not available 04/07/2023 19:53:25 04/22/2023 04/22/2023 HPI: Patient returns. She is here for follow-up of right proximal humerus fracture. This happened On 04/05. She is 17 days out. Overall pain is a lot better. she is having no real pain in the wrist at this point. She has been using the cock-up wrist splint. The elbow is much better as well. The only time the elbow bothers her is if she puts any pressure on the olecranon this is sore otherwise there is no pain. Shoulder pain is getting lot better as well. She is not needing pain pills on a regular basis. She has been in the sling the entire time. She did have her vitamin-D checked and was 36. She does take calcium and extra vitamin-D daily she is also on Reclast. Physical exam: Patient is wearing her sling. She has no tenderness in the wrist and moves her wrist and fingers without discomfort. She has some mild tenderness at the tip of the olecranon but no tenderness mediolateral to the elbow. Impression: Patient's left proximal humerus fracture appears to be lined up a little better today than previous x-rays. Overall alignment I think at this point is very acceptable. She is continue with the sling. She can wean herself off of the wrist splint as her comfort allows. She has quite a bit of comminution at the neck and we are going to give this a little bit more time for healing before we start any physical therapy such as pendulum. Again she will continue with the sling full-time we will see her back in about 2 and half weeks with new x-rays of the shoulder at that time. 20 minutes was spent treatment patient more than half of this in [id number] conversation Not available 04/22/2023 13:40:48 05/11/2023 05/11/2023 HPI: Patient is 35 days out from left proximal humerus fracture. Injury happened on 04/05. She has been in the sling. We have not started any significant therapy on her due to the comminution of fracture. Overall the left shoulder is less painful for her. Patient is also complaining pain in the right shoulder. We saw her for this shoulder and she does have a significant rotator cuff tear she decided not to treat surgically. She has been using quite a bit. It was discussed with her about the use of cortisone injection in the shoulder and she did wish to have this today to try to help with her pain in the right shoulder. Physical exam: 77-year-old female alert pleasant. She has about a 15 degree flexion contracture of the left elbow. There is some swelling at the proximal forearm. No redness or warmth. She has passive elevation to 60 and external rotation to 30. Her right shoulder she has active elevation 145 external rotation 80. She has moderate weakness with external rotation as well as abduction. No effusion noted. After ChloraPrep was used on skin 20 mg Kenalog and 3 cc of 0.5% ropivacaine was injected into the right subacromial space. Risk infection discussed. Impression: Patient has a left proximal humerus fracture appears to be healing well x-rays. She does have good callus formation. We will start formal physical therapy at this point. She may stop using the sling completely. I instructed her to make sure that she allows the elbow to extend while she is walking and not walk with the elbow bent as this will hamper her extension. We will set up formal physical therapy to work on range of motion of the shoulder as well as the elbow. I did give her a ben here in the office today that she can use at home and get started with. We will not have therapy do any strengthening at this point only range of motion exercises. She may use the left arm for light activities been weight-bearing on it and no more than a lb of lifting. We will see her back in 3 weeks with new x-rays of the left shoulder. If she has continued healing will advance therapy to start strengthening. 20 minutes was spent in treatment patient more than half of this in [id number] conversation Not available 05/11/2023 10:09:34 06/03/2023 06/03/2023 HPI: Patient returns. She is now 59 days out from left proximal humerus fracture. This happened on 04/05. She has been going to therapy to work on range of motion no strengthening yet. Overall she is feeling a lot better. She still has soreness in the shoulder and upper arm at times. She is not able to lay on that side get to sleep. She has been getting little bit of tingling and she feels it is coming from medial elbow into the proximal forearm. She has been sleeping at night on her back with her elbows bent and thinks she may have some irritation of the ulnar nerve. Physical exam: Patient has active assisted elevation to 145 external rotation 80 and internal rotation is to L1. She still has mild to moderate weakness with abduction mild weakness with external rotation. No pain with strength testing. No pain with range of motion. No tenderness about shoulder. Negative Tinel's over the cubital tunnel. No numbness or tingling to light touch the left arm. Impression: Patient's left proximal humeral fracture appears to be healing well on the x-rays. I think she has union at this point. She has regained most of her motion back and continues to work hard on her home exercise program. She has 2 more visits of therapy and I am going to have them teach her strengthening exercises and give her the Thera-Bands so that she can continue to work on her strength at home. She does not wish to go more therapy after that and I think she should do well on her own given how well she has done with her range of motion exercises. Overall she is doing well. I think that she has good healing on the x-rays and so I think we do need to see her back at this point unless she has further problems. 20 minutes was spent treatment patient more than half of this in [id number] conversation Not available 06/03/2023 11:06:01 Plan of Treatment Reminders Order Date Submit Date Provider Last Modified By Organization Details Last Modified Time Details Appointments None recorded. Lab None recorded. Referral physical therapist referral - see attached order- please schedule pt 2022 023 [email or web address] [facility], [address] [place], [address], 3 14:21:10 Procedures injection/a spiration joint/bursa (PROC) - in office procedure, administere d by provider 2022 023 [email or web address] In-Office Order, Internal Use Only DO Not Attach Compendium DO Not Attach Compendium, Do Not Delete/merge, [id number] 09:57:30 Surgeries None recorded. Imaging XR, elbow 2022 023 [email or web address] [facility] [place], [address], [place], [address], 3 13:52:51 XR, shoulder 2022 023 [facility] [place], [address], [place], [address], 3 12:30:32 XR, wrist 2022 023 [email or web address] [facility] [place], [address], [place], [address], 3 13:52:51 XR, shoulder 2022 023 [facility] [place], [address], [place], [address], 3 13:10:33 XR, shoulder 2022 023 [facility] [place], [address], [place], [address], 3 11:30:58 Medication Orders Kenalog 10 mg/mL suspension for injection 2022 023 [facility], [address] [place], [address], 3 13:10:33 ropivacaine (PF) 5 mg/mL (0.5 %) injection solution 2022 023 [facility], [address] [place], [address], 13:10:33 Patient TargetsNo targets recorded. Patient InstructionsNo instructions recorded. Reason for Referral Physical Therapist Referral for Closed fracture of upper end of humerus see attached order- please schedule pt Referring Physician: Nic Farley, Orthopedic Surgery, Encounter Date: 05/11/2023 Results Created Date Observation Date Name Description Value Unit Range Abnormal Flag Note LastModifiedBy Organization Detail LastModifiedTime 04/07/2004/05/2023 XR, shoul janet, 2 or more view No observ ation record ed. Not Available 03/15 10:41:26 04/07/20 23 04/05/2023 XR, elbow , 3 or more view No observ ation record ed. Not Available 03/15 10:41:26 04/07/20 23 04/05/2023 XR, wrist , 3 or more view No observ ation record ed. Not Available 03/15 10:41:26 04/08/20 23 03/11/2022 bone densi ty No observ ation record ed. [email or web address] Not Available 2022 15:33:55 04/22/20 XR, shoul janet No observ ation record ed. [facility] [place] [address], [place], [address], 04/22/2023 13:39:16 04/22/20 XR, wrist No observ ation record ed. [facility] [place] [address], [place], [address], 04/22/2023 13:38:39 06/09/20 23 XR, elbow No observ ation record ed. [facility] [place] [address], [address], 04/22/2023 13:38:16 05/11/20 23 XR, shoul janet No observ ation record ed. [facility] [place] [address], [address], 05/11/2023 10:06:48 06/03/20 23 XR, shoul janet No observ ation record ed. [facility] [place] [address], [address], 06/03/2023 11:03:45 Result Notes None recorded. Problems Name Problem SNOMED Code Status Onset Date Resolution Date Notes Provider Name and Address Organization Details Recorded Time History of total knee arthroplas ty 3981269363022 Active 2021 Not Available [facility] 3 00:55:20 Pain of left shoulder joint 5710490922328 9109 Active 2021 Not Available [facility] 3 00:55:20 Stable angina 340286126 Active 2018 Not Available [facility] 3 00:55:20 Enthesopat hy of hip region 50022476 Active Not Available [facility] 3 00:55:20 Osteoarthr itis of left knee joint 8879320499342 09 Active 2018 Not Available [facility] 3 00:55:20 Osteoarthr itis 055981659 Active Not Available [facility] 3 00:55:20 Pain of left hip joint 1244954847477 00 Active 2022 FREDERICK Mobley, [facility] [employer] [facility] 3 10:18:52 Pain of right shoulder joint 2140671174217 9100 Active 2022 FREDERICK Mobley, [place] [facility] 3 10:19:32 Partial thickness rotator cuff tear 732265106 Active 2022 Karlie Randall RMA null, [facility] 3 09:54:19 Vitamin D deficiency 09440387 Active 2022 Nava Garcia ONLINE EDITOR null, [facility] 3 13:32:39 Closed fracture of upper end of humerus 51549112 Active 2022 Karlie Randall RMA null, [facility] 3 12:06:45 Pain of left elbow joint 3389644541523 9104 Active 2022 Karlie Randall RMA null, [facility] 3 12:07:11 Pain of left wrist 3468066423342 02 Active 2022 Karlie Randall RMA null, [facility] 3 12:53:17 Problem Notes None recorded. Procedures Surgical History None recorded. Imaging Results Imaging Date Name Status [facility]Modified by [facility] Details LastModified Time 04/05/2023 XR, shoulder, 2 or more view completed Information not available 04/07/2023 10:41:26 04/05/2023 XR, elbow, 3 or more view completed Information not available 04/07/2023 10:41:26 04/05/2023 XR, wrist, 3 or more view completed Information not available 04/07/2023 10:41:26 03/11/2022 bone density completed [email or web address] Information not available 04/08/2023 15:33:55 04/22/2023 XR, shoulder completed [facility] [place] [address], [place], [address], 04/22/2023 13:39:16 04/22/2023 XR, wrist completed [facility] [place] [address], [place], [address], 04/22/2023 13:38:39 04/22/2023 XR, elbow completed [facility] [place] [address], [place], [address], 04/22/2023 13:38:16 05/11/2023 XR, shoulder completed [facility] [place] [address], [place], [address], 05/11/2023 10:06:48 06/03/2023 XR, shoulder completed [facility] [place] [address], [place], [address], 06/03/2023 11:03:45 Procedure Notes None recorded. Medical Equipment None Reported. Allergies Allergen ID Allergen Name Allergen Category Reaction Reaction Severity Criticality Documentation Date Start Date Code Code System Note Provider Name and Address Organization Details Recorded Time 1368 latex environme nt,medica tion rash Not available Not available 01/12/2023 38250 91 RxNorm BLIST ERS Not Available [facility] 3 01:02:40 1369 bacitraci n medicatio n Not available Not available Not available 01/12/20232018 1291 RxNorm cause d infec teed 2nd degre e no rash or sob Not Available [facility] 3 01:02:40 Medications Name Sig Start Date Stop Date Status Note LastModified by Organization Details LastModified Time amoxicillin 500 mg capsule TAKE FOUR CAPSULES BY MOUTH ONE HOUR PRIOR TO PROCEDURE active Not Available Not Available No t Available furosemide 40 mg tablet TAKE 1 TABLET BY MOUTH ONCE DAILY active Not Available Not Available No t Available pravastatin 40 mg tablet TAKE 1 TABLET BY MOUTH ONCE DAILY active Not Available Not Available No t Available atenolol 100 mg tablet 08/07 completed Not Available Not Available Not Available hydrocodone 5 mg-acetamin ophen 325 mg tablet TAKE 1 TABLET BY MOUTH EVERY 4 HOURS NEEDED FOR ABDOMINAL PAIN 04/07 completed Not Available Not Available Not Available lisinopril 20 mg tablet TAKE 1 TABLET BY MOUTH ONCE DAILY active Not Available Not Available No t Available ondansetron HCl 4 mg tablet 08/07 completed Not Available Not Available Not Available isosorbide mononitrate ER 30 mg tablet,exte nded release 24 hr TAKE 3 TABLETS BY MOUTH ONCE DAILY active Not Available Not Available No t Available atenolol 25 mg tablet TAKE 1 2 (ONE HALF) TABLET BY MOUTH ONCE DAILY 01/26 completed Not Available Not Available Not Available clindamycin HCl 150 mg capsule TAKE 1 CAPSULE BY MOUTH THREE TIMES DAILY 02/03 completed Not Available Not Available Not Available potassium chloride ER 10 mEq tablet,exte nded release TAKE 1 TABLET BY MOUTH ONCE DAILY WITH FOOD active Not Available Not Available No t Available ciprofloxac in 250 mg tablet TAKE 1 TABLET BY MOUTH TWICE DAILY (DO NOT TAKE WITH ZOFRAN (ONDANSET NOELLE)) 02/03 completed Not Available Not Available Not Available amlodipine 5 mg tablet 08/08 completed Not Available Not Available Not Available aspirin 81 mg tablet,della yed release Take 1 tablet every day by oral route. 12/03 completed Not Available Not Available Not Available tramadol 50 mg tablet TAKE 1 TABLET BY MOUTH EVERY 4 HOURS NEEDED active Not Available Not Available No t Available cefadroxil 500 mg capsule 09/05 completed Not Available Not Available Not Available isosorbide mononitrate ER 60 mg tablet,exte nded release 24 hr 08/07 completed Not Available Not Available Not Available flaxseed oil 1,000 mg capsule 09/05 completed Not Available Not Available Not Available famotidine 20 mg tablet TAKE 1 TABLET BY MOUTH AT BEDTIME active Not Available Not Available No t Available prednisolon e acetate 1 % eye drops,suspe nsion 08/07 completed Not Available Not Available Not Available pravastatin 10 mg tablet 08/08 completed Not Available Not Available Not Available Kenalog 10 mg/mL suspension for injection in office 2022 active [facility]: 0003- 0494- 20 Not Available Not Available Not Available amlodipine 10 mg tablet TAKE 1 TABLET BY MOUTH ONCE DAILY 02/03 completed Not Available Not Available Not Available doxycycline monohydrate 100 mg capsule TAKE 1 CAPSULE BY MOUTH TWICE DAILY 02/03 completed Not Available Not Available Not Available cephalexin 500 mg capsule TAKE 1 CAPSULE BY MOUTH EVERY 8 HOURS active Not Available Not Available No t Available paroxetine 20 mg tablet TAKE 2 TABLETS BY MOUTH DAILY 09/05 completed Not Available Not Available Not Available pantoprazol e 40 mg tablet,della yed release TAKE 1 TABLET BY MOUTH TWICE DAILY active Not Available Not Available No t Available cyanocobala min (vit B-12) 1,000 mcg/mL injection solution INJECT 1ML SUBCUTANE OUSLY DAILY FOR 4 DAYS THEN WEEKLY FOR 4 WEEKS THEN MONTHLY active Not Available Not Available No t Available ranitidine 150 mg tablet 09/05 completed Not Available Not Available Not Available lisinopril 10 mg tablet TAKE 1 TABLET BY MOUTH ONCE DAILY 03/16 completed Not Available Not Available Not Available clotrimazol e 1 % topical solution 08/07 completed Not Available Not Available Not Available nitroglycer in 0.4 mg sublingual tablet DISSOLVE ONE TABLET UNDER THE TONGUE EVERY 5 MINUTES NEEDED FOR CHEST PAIN. DO NOT EXCEED A TOTAL OF 3 DOSES IN 15 MINUTES active Not Available Not Available No t Available hydrocodone 5 mg-acetamin ophen 500 mg tablet 08/07 completed Not Available Not Available Not Available levothyroxi ne 200 mcg tablet TAKE 1 TABLET BY MOUTH ONCE DAILY active Not Available Not Available No t Available pravastatin 20 mg tablet 08/07 completed Not Available Not Available Not Available hydrochloro thiazide 25 mg tablet TAKE 1 TABLET BY MOUTH ONCE DAILY active Not Available Not Available No t Available mupirocin 2 % topical ointment Applied as directed in both nostrils twice daily for 5 days 01/26 completed Not Available Not Available Not Available clobetasol 0.05 % topical ointment 08/07 completed Not Available Not Available Not Available lorazepam 1 mg tablet TAKE 1 TABLET BY MOUTH TWICE DAILY NEEDED FOR ABDOMINAL SPASM active Not Available Not Available No t Available polyethylen e glycol 3350 17 gram/dose oral powder TAKE 17 GRAMS BY MOUTH ONCE DAILY DIRECTED active Not Available Not Available No t Available methylpredn isolone 4 mg tablets in a dose pack TAKE DIRECTED 04/07 completed Not Available Not Available Not Available paroxetine 40 mg tablet TAKE 1 TABLET BY MOUTH ONCE DAILY active Not Available Not Available No t Available ipratropium bromide 42 mcg (0.06 %) nasal spray USE 2 SPRAY(S) IN EACH NOSTRIL TWICE DAILY active Not Available Not Available No t Available lisinopril 40 mg tablet TAKE 1 TABLET BY MOUTH ONCE DAILY 04/07 completed Not Available Not Available Not Available losartan 100 mg tablet TAKE 1 TABLET BY MOUTH ONCE DAILY active Not Available Not Available No t Available fluticasone propionate 50 mcg/actuati on nasal spray,suspe nsion USE 2 SPRAYS TO EACH NOSTRIL TWICE A DAY FOR 7 DAYS, THEN 2 SPRAYS TO EACH NOSTRIL EVERY NIGHT. active Not Available Not Available No t Available Hibiclens 4 % topical liquid Perform daily total body-wash for 5 days 09/05 completed Not Available Not Available Not Available amoxicillin 875 mg-potassiu m clavulanate 125 mg tablet TAKE 1 TABLET BY MOUTH EVERY 12 HOURS 02/03 completed Not Available Not Available Not Available oxycodone 5 mg tablet take 1 tab po q 4hr prn 05/11 completed Not Available Not Available Not Available Stool Softener-La xative 8.6 mg-50 mg tablet TAKE 2 TABLETS BY MOUTH TWICE DAILY active Not Available Not Available No t Available metoprolol tartrate 25 mg tablet TAKE 1 TABLET BY MOUTH TWICE DAILY active Not Available Not Available No t Available Calcium 600 + D(3) 600 mg-5 mcg (200 unit) tablet Take by oral route. 09/05 completed Not Available Not Available Not Available levothyroxi ne 200 mg 12/03 completed 1 for 5 days Not Available Not Available Not Available ranolazine ER 500 mg tablet,exte nded release,12 hr TAKE 1 TABLET BY MOUTH TWICE DAILY active Not Available Not Available No t Available lidocaine (PF) 10 mg/mL (1 %) injection solution In office injection administe red by the provider 06/12 completed [facility]: 0409- 4276- 17 Not Available Not Available Not Available lidocaine (PF) 5 mg/mL (0.5 %) injection solution Take 20 mg by injection route. 02/03 completed Not Available Not Available Not Available ranolazine ER 1,000 mg tablet,exte nded release,12 hr TAKE 1 BY MOUTH TWICE DAILY 02/03 completed Not Available Not Available Not Available ropivacaine (PF) 5 mg/mL (0.5 %) injection solution in office 2022 active [facility] [id number] [id number] Not Available Not Available Not Available Eliquis 2.5 mg tablet 09/05 completed Not Available Not Available Not Available Mikki WONGDS-2 09/05 completed Not Available Not Available Not Available BinaxNOW COVID-19 Ag Self Test kit Use as Directed on the Package 02/03 completed Not Available Not Available Not Available Vitals Date Recorded Body height Provider Name an d Address Organization Details Last Updated DateTime 03/16/2023 162.56 cm Karlie Randall [facility] 03/16/2023 09:52:09 Date Recorded Body height Provider Name an d Address Organization Details Last Updated DateTime 04/07/2023 162.56 cm Karlie Randall [facility] 04/07/2023 12:22:07 Date Recorded Body height Provider Name an d Address Organization Details Last Updated DateTime 04/22/2023 162.56 cm Karlie Randall [facility] 04/22/2023 12:04:48 Date Recorded Body height Provider Name an d Address Organization Details Last Updated DateTime 05/11/2023 162.56 cm Karlie Randall [facility] 05/11/2023 09:04:41 Date Recorded Body height Provider Name an d Address Organization Details Last Updated DateTime 06/03/2023 162.56 cm Karlie Randall [facility] 06/03/2023 10:23:22 Social History Question Answer Notes LastModified by Organizat ion Details LastModified Time Tobacco Smoking Status Never Smoker Delia Pena null, [facility] 06/03/2023 10:12:09 What Is Your Level Of Alcohol Consumption? Occasional [id number] Information not available 01/12/2023 Sex: Unknown Functional Status None recorded. Mental Status None recorded. Family History Relationship Description Onset Age of this Age Resolved Age Notes LastModified by Organization Details LastModified Time Father Heart disease [id number] Not available 01/12/2023 00:49:06 Father Hypertensive disorder [id number] Not available 01/12/2023 00:49:06 Mother Heart disease [id number] Not available 01/12/2023 00:49:06 Mother Hypertensive disorder [id number] Not available 01/12/2023 00:49:06 Brother Heart disease [id number] Not available 01/12/2023 00:49:06 Medical History Condition Response BLINDNESS N KIDNEY STONES N MRSA N CARPAL TUNNEL SYNDROME N LUNG DISEASE/DISORDER N HISTORY OF DRUG ABUSE N RADIATION / CHEMOTHERAPY N COPD N SPORTS INJURY N ANKLE PAIN N BLOOD DISEASES N SCHIZOPHRENIA N SHINGLES N SHOULDER PAIN N BOWEL PROBLEMS N DEPRESSION (INCLUDING POST ) N STROKE/TIA N ULCERS N KNEE PAIN N BENIGN PROSTATIC HYPERPLASIA N OBESITY N GERD/NAUSEA N ANEURYSM N URINARY/BLADDER/KIDNEY PROBLEMS N CORONARY ARTERY DISEASE (CAD) N ADDICTION CONCERNS N USE OF BLOOD THINNERS N SKIN PROBLEMS N EMPHYSEMA N MUSCLE,JOINT OR BONE PROBLEMS N DVT N STOMACH ULCERS N BLOOD CLOTS N USE OF NSAIDS N CONCUSSION OR SPINAL TRAUMA N NEUROPATHY N AIDS/HIV N FRACTURES N HYPERTENSION Y ELBOW PAIN N TOURETTE'S N Metal allergy N ANXIETY DISORDER N BLOOD TRANSFUSION N ANEMIA/BLOOD DISORDER N BIPOLAR DISORDER N BRONCHITIS N OSTEOARTHRITIS N TUBERCULOSIS N FOOT PROBLEM N HEART VALVE DISORDERS N ALLERGIES/HAYFEVER N SOFT TISSUE INJURY N INFECTIOUS DISEASE N HEART ARRHYTHMIA N INSOMNIA N HIGH CHOLESTEROL / HYPERLIPIDEMIA N RHEUMATOID ARTHRITIS N EDEMA N CHRONIC PAIN SYNDROME N CAROTID BLOCKAGE N BACK / NECK PROBLEMS N HAVE YOU BEEN HOSPITALIZED OR SEEN IN [facility] IN THE PAST YEAR ? N BURSITIS N HERNIATED DISC N DIALYSIS N FIBROMYALGIA N OSTEOPOROSIS N ARTHRITIS Y NO SIGNIFICANT PAST MEDICAL HISTORY N PERIPHERAL NEUROPATHY N DIABETES, TYPE N HEARTBURN / REFLUX N HEPATITIS / LIVER DISEASE N GOUT N ALZHEIMER'S DISEASE N SLEEP DISORDER N HERPES N HEADACHES/MIGRAINES N SEIZURES/EPILEPSY N VASCULAR DISEASE N Blood Disorder N HIP PAIN N DIZZINESS N HEAD TRAUMA OR INJURY N HEART DISEASE/HEART PROBLEMS Y MULTIPLE SCLEROSIS N CANCER: SPECIFY N CARDIAC ARRHYTHMIA N ANESTHESIA COMPLICATIONS N ATRIAL FIBRILLATION N AUTOIMMUNE DISEASE N Gynecological HistoryNo gynecological history recorded. Obstetrics History GPAL:G 0 P 0 0 0 0 Past Encounters Encounter ID Performer Location Encounter Start Date Encounter Closed Date Diagnosis/Indication Diagnosis SNOMED-CT Code Diagnosis ICD10 Code Diagnosis Note [id number] [facility] [place] [address] [place] [address] 01/12/2021 00:00:00 01/12/2021 14:46:55 [id number] [facility] [place] [address] [place] [address] 01/26/2021 00:00:00 01/26/2021 15:38:38 [id number] [facility] [place] [address] [place] [address] 04/03/2021 00:00:00 04/03/2021 09:59:55 [id number] [facility] [place] [address] [place] [address] 05/01/2021 00:00:00 05/01/2021 09:14:43 [id number] [facility] [place] [address] [place] [address] [place] [address] 06/04/2021 00:00:00 06/04/2021 11:10:45 [id number] [facility] [place] [address] [place] [address] 06/12/2021 00:00:00 06/13/2021 12:11:52 [id number] [facility] [place] [address] [place] [address] 07/10/2021 00:00:00 07/10/2021 09:44:19 [id number] [facility] [place] [address] [place] [address] 07/24/2021 00:00:00 07/24/2021 12:01:16 [id number] [facility] [place] [address] [place] [address] 01/01/2022 00:00:00 01/01/2022 10:41:38 [id number] [facility] [place] [address] [place] [address] 04/16/2022 00:00:00 04/16/2022 09:57:05 [id number] [facility] [place] [address] [place] [address] 04/30/2022 00:00:00 04/30/2022 09:18:47 [id number] Aydin Pritchard MD [address] [address] 02/03/2023 09:59:49 02/03/2023 11:15:08 Pain of right shoulder joint [id number] M25.511 [id number] Aydin Pritchard MD [facility] [place] [address] [place] [address] 03/16/2023 09:46:32 03/16/2023 10:51:04 Partial thickness rotator cuff tear 404841402 M75.101 [id number] Aydin Pritchard MD [address] [address] 04/07/2023 12:05:17 04/08/2023 09:46:52 Pain of left shoulder joint 2143862410 [id number] M25.512 [id number] ROSALIA Owens [facility] [place] [address] [place] [address] 04/22/2023 11:58:33 04/22/2023 13:52:51 Closed fracture of upper end of humerus 94144941 S42.D Pain of le ft elbow joint 1346336367 9560195 M25.522 Pain of left wrist 85402 30743 11646 M25.532 [id number] ROSALIA Owens [facility] [place] [address] [place] [address] 05/11/2023 09:00:00 05/11/2023 10:14:12 Closed fracture of upper end of humerus 64021422 S42.202D Pain of ri ght shoulder joint 2279908016 5654831 M25.511 [id number] ROSALIA Owens [facility] [place] [address] [place] [address] 06/03/2023 10:10:44 06/03/2023 11:23:28 Closed fracture of upper end of humerus 39453845 S4 Health Concerns Section Related Observation LastModified by Organization Detai ls LastModified Time None Recorded Concern Status LastModified by Organization Details LastModified Time None Recorded Advance Directives Directive None Recorded Payers Encounter Date Sequence Insurance Name Policy Number Policy Ba Covered Member ID Ba Member ID Guarantor Name 03/16/2023 1 [place] Betzy S Reddo [id number] Betzy S Reddo 03/16/2023 2 [place] [id number] Betzy S Reddo [id number] Betzy S Reddo 04/07/2023 1 [place] Betzy S Reddo [id number] Betzy S Reddo 04/07/2023 2 [place] [id number] Betzy S Reddo [id number] Betzy S Reddo 04/22/2023 1 [place] Betzy S Reddo [id number] Betzy S Reddo 04/22/2023 2 [place] [id number] Betzy S Reddo [id number] Betzy S Reddo 05/11/2023 1 [place] Betzy S Reddo [id number] Betzy S Reddo 05/11/2023 2 [place] [id number] Betzy S Reddo [id number] Betzy S Reddo 06/03/2023 1 [place] Betzy S Reddo [id number] Betzy S Reddo 06/03/2023 2 [place] [id number] Betzy S Reddo [id number] Betzy S Reddo Notes Date Note Type Note Provider Name and Address Organization Details Recorded Time 04/07/2023 text/html patient returns. Saw her 3 weeks ago for rotator cuff tear in the right shoulder. Two days ago on 04/05/2023 she tripped on a tractor bucket while walking outside and landed forward on concrete onto her left arm and shoulder and some of the left hand and up behind her. The she was seen at the hospital emergency room and had x-rays of her left shoulder left elbow and left wrist. She has been complaining of pain all 3 areas. I reviewed the radiologist's report and images. 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 X-rays of her left elbow are not standard views. I could not assess for presence or absence of effusion as the lateral view was too oblique I did not see evidence of effusion or fracture. The x-rays of her left shoulder show a comminuted fracture of the surgical neck of likes proximal humerus fracture with extension into the proximal humeral shaft and some comminution of the shaft. There is mild angulation on the transscapular lateral view apex anterior and less than 1 cm anterior translational displacement the anterior humeral shaft relative to anterior humeral head fragment. I did not see evidence fracture into the humeral head or tuberosity spirits In review of her previous imaging studies, I see that she had an MRI scan of her left shoulder on 03/23/2022 showing rupture of long head of the biceps tendon and she had x-rays of left shoulder from 03/23/2022 demonstrating mild central narrowing of glenohumeral joint space and prominent surface enthesophyte of the anterior greater tuberosity consistent with supraspinatus insertional disease. Aydin Pritchard MD [address] [place] [address], [id number], [place] [facility] 04/07/2023 19:53:42 OBGyn Episode No OBEpisode recorded.
--- OUTSIDE RECORDS SUMMARY | 2024-12-21 16:02 | XMS_ITS ---
Author Organization [facility] Address [address] [place], [place] [id number] Care Team Providers Care Cargo Handler Name Role Phone LISA BUTLER Unavailable [phone] Janeth Viramontes Unavailable Unavailable Allergies Allergen (clinical [...] Duration) Notes Start Date End Date Status levothyroxine sodium 0.2 MG Oral Tablet ORAL levothyroxine sodium 0.2 MG Oral TabletOriginal Medicationlevothyroxine sodium 0.2 MG Oral Tablet *Reorder from [employer] for eRx and Interaction Alerts* 0 Active Medrol Dosepak ORAL Medrol DosepakOr iginal MedicationMedrol Dosepak *Reorder from [employer] for eRx and Interaction Alerts* 3 Active ciclopirox 80 MG/ML Topical Solution ciclopirox 80 MG/ML Topical SolutionOriginal Medicationciclopirox 80 MG/ML Topical Solution *Reorder from [employer] for eRx and Interaction Alerts* 7 Active clotrimazole 10 MG/ML Topical Solution CUTANEOUS clotrimazole 10 MG/ML Topical SolutionOriginal Medicationclotrimazole 10 MG/ML Topical Solution *Reorder from [employer] for eRx and Interaction Alerts* 4 Active ipratropium bromide 0.042 MG/ACTUAT Metered Dose Nasal [place] ipratropium bromide 0.042 MG/ACTUAT Metered Dose Nasal SprayOriginal Medicationipratropium bromide 0.042 MG/ACTUAT Metered Dose Nasal [place] *Reorder from [employer] for eRx and Interaction Alerts* 0 Active Lisinopril 10 MG Oral Tablet ORAL lisinopril 10 MG Oral TabletOriginal Medicationlisinopril 10 MG Oral Tablet *Reorder from [employer] for eRx and Interaction Alerts* 0 Active 12 HR ranolazine 1000 MG Extended Release Oral Tablet [Ranexa] ORAL 12 HR ranolazine 1000 MG Extended Release Oral Tablet [Ranexa]Original [id number] HR ranolazine 1000 MG Extended Release Oral Tablet [Ranexa] *Reorder from [employer] for eRx and Interaction Alerts* 6 Active amlodipine 10 MG Oral Tablet ORAL amlodipine 10 MG Oral TabletOriginal Medicationamlodipine 10 MG Oral Tablet *Reorder from [employer] for eRx and Interaction Alerts* 0 Active aspirin 81 MG Delayed Release Oral Tablet ORAL aspirin 81 MG Delayed Release Oral TabletOriginal Medicationaspirin 81 MG Delayed Release Oral Tablet *Reorder from [employer] for eRx and Interaction Alerts* 6 Active calcium carbonate 600 MG / cholecalciferol 125 UNT Oral Tablet ORAL calcium carbonate 600 MG / cholecalciferol 125 UNT Oral TabletOriginal Medicationcalcium carbonate 600 MG / cholecalciferol 125 UNT Oral Tablet *Reorder from [employer] for eRx and Interaction Alerts* 6 Active urea 400 MG/ML Topical Cream CUTANEOUS urea 400 MG/ML Topical CreamOriginal Medicationurea 400 MG/ML Topical Cream *Reorder from [employer] for eRx and Interaction Alerts* 3 Active pantoprazole 40 MG Delayed Release Oral Tablet ORAL pantoprazole 40 MG Delayed Release Oral TabletOriginal Medicationpantoprazole 40 MG Delayed Release Oral Tablet *Reorder from [facility] for eRx and Interaction Alerts* 0 Active Furosemide 40 MG Oral Tablet ORAL furosemide 40 MG Oral TabletOriginal Medicationfurosemide 40 MG Oral Tablet *Reorder from [facility] for eRx and Interaction Alerts* 0 Active Famotidine 20 MG Oral Tablet ORAL famotidine 20 MG Oral TabletOriginal Medicationfamotidine 20 MG Oral Tablet *Reorder from [facility] for eRx and Interaction Alerts* 0 Active Isosorbide Mononitrate 20 MG Oral Tablet ORAL isosorbide mononitrate 20 MG Oral TabletOriginal Medicationisosorbide mononitrate 20 MG Oral Tablet *Reorder from [facility] for eRx and Interaction Alerts* 0 Active Encounters Encounter Location Date Provider Diagnosis [facility] [address] [place] [id number] 12/17/2024 LISA KAILEYK Tinea unguium B35.1 ; Pain in right foot M79.671 ; Pain in left foot M79.672 ; Atherosclerosis of mi'[place]ma[place] arteries of extremities with intermittent claudication, bilateral legs I70.213 and Acquired keratosis [keratoderma] palmaris et plantaris L85.1 Assessments Encounter Date Diagnosis (ICD Code) Assessment Notes Treatment Notes Treatment Clinical Notes Section Notes 12/17/2024 Tinea unguium (ICD-10 - B35.1) Nails 1-5 Bilateral were debrided extensively with nail nippers and emery board, reducing length and girth to pink healthy tissue with any subungual debris and necrotic tissue removed 12/17/2024 Pain in right foot (ICD-10 - M79.671) 12/17/2024 Pain in left foot (ICD-10 - M79.672) 12/17/2024 Atherosclerosis of mi'kmaq arteries of extremities with intermittent claudication, bilateral legs (ICD-10 - I70.213) 12/17/2024 Acquired keratosis [keratoderma] palmaris et plantaris (ICD-10 [...] problems develop. Provider Name:LISA BUTLER, 10:30:00 AM, [address], [address], [phone], Progress Notes * FREDDIE MARTÍNEZ SDOB:[birth year] (79 yo F)Acc No.[id number]:12/17/2024 Patient: FREDDIE QUARLES Provider: Ramirez Butler DPM :1945 A ge:79 Y S ex:Female Date:12/17/2024 Address:[address] [place] [address] Subjective: * Chief Complaints: * 1 . Patient presents for at-risk foot care . [...] Date last seen by Dr. Viramontes was 11/2024., Initials [facility]. * ROS: G eneral / Constitutional: Patient denies c hills, fever, weight loss. ? M usculoskeletal: Patient denies w eakness, broken foot bone. ? P eripheral Vascular: Patient denies p ain / cramping in legs after exertion, ulceration of feet. S kin: Patient complains of f ungal nails, nail changes, calluses and corns. N eurologic: Patient denies b alance difficulty, confusion, difficulty speaking, dizziness. * Medical History: * Medications: T aking Furosemide 40 MG Oral Tablet ORAL , Notes to Pharmacist: furosemide 40 MG Oral TabletOriginal Medicationfurosemide 40 MG Oral Tablet *Reorder from [facility] for eRx and Interaction Alerts*, Taking Famotidine 20 MG Oral Tablet ORAL , Notes to Pharmacist: famotidine 20 MG Oral TabletOriginal Medicationfamotidine 20 MG Oral Tablet *Reorder from [facility] for eRx and Interaction Alerts*, Taking Isosorbide Mononitrate 20 MG Oral Tablet ORAL , Notes to Pharmacist: isosorbide mononitrate 20 MG Oral TabletOriginal Medicationisosorbide mononitrate 20 MG Oral Tablet *Reorder from [facility] for eRx and Interaction Alerts*, Taking Lisinopril 10 MG Oral Tablet ORAL , Notes to Pharmacist: lisinopril 10 MG Oral TabletOriginal Medicationlisinopril 10 MG Oral Tablet *Reorder from [facility] for eRx and Interaction Alerts*, Taking 12 HR ranolazine 1000 MG Extended Release Oral Tablet [Ranexa] ORAL , Notes to Pharmacist: 12 HR ranolazine 1000 MG Extended Release Oral Tablet [Ranexa]Original [id number] HR ranolazine 1000 MG Extended Release Oral Tablet [Ranexa] *Reorder from [facility] for eRx and Interaction Alerts*, Taking amlodipine 10 MG Oral Tablet ORAL , Notes to Pharmacist: amlodipine 10 MG Oral TabletOriginal Medicationamlodipine 10 MG Oral Tablet *Reorder from [facility] for eRx and Interaction Alerts*, Taking aspirin 81 MG Delayed Release Oral Tablet ORAL , Notes to Pharmacist: aspirin 81 MG Delayed Release Oral TabletOriginal Medicationaspirin 81 MG Delayed Release Oral Tablet *Reorder from [facility] for eRx and Interaction Alerts*, Taking calcium carbonate 600 MG / cholecalciferol 125 UNT Oral Tablet ORAL , Notes to Pharmacist: calcium carbonate 600 MG / cholecalciferol 125 UNT Oral TabletOriginal Medicationcalcium carbonate 600 MG / cholecalciferol 125 UNT Oral Tablet *Reorder from [facility] for eRx and Interaction Alerts*, Taking ciclopirox 80 MG/ML Topical Solution , Notes to Pharmacist: ciclopirox 80 MG/ML Topical SolutionOriginal Medicationciclopirox 80 MG/ML Topical Solution *Reorder from [facility] for eRx and Interaction Alerts*, Taking clotrimazole 10 MG/ML Topical Solution CUTANEOUS , Notes to Pharmacist: clotrimazole 10 MG/ML Topical SolutionOriginal Medicationclotrimazole 10 MG/ML Topical Solution *Reorder from [facility] for eRx and Interaction Alerts*, Taking ipratropium bromide 0.042 MG/ACTUAT Metered Dose Nasal [place] , Notes to Pharmacist: ipratropium bromide 0.042 MG/ACTUAT Metered Dose Nasal SprayOriginal Medicationipratropium bromide 0.042 MG/ACTUAT Metered Dose Nasal [place] *Reorder from [facility] for eRx and Interaction Alerts*, Taking levothyroxine sodium 0.2 MG Oral Tablet ORAL , Notes to Pharmacist: levothyroxine sodium 0.2 MG Oral TabletOriginal Medicationlevothyroxine sodium 0.2 MG Oral Tablet *Reorder from [facility] for eRx and Interaction Alerts*, Taking Medrol Dosepak ORAL , Notes to Pharmacist: Medrol DosepakOriginal MedicationMedrol Dosepak *Reorder from [facility] for eRx and Interaction Alerts*, Taking pantoprazole 40 MG Delayed Release Oral Tablet ORAL , Notes to Pharmacist: pantoprazole 40 MG Delayed Release Oral TabletOriginal Medicationpantoprazole 40 MG Delayed Release Oral Tablet *Reorder from [facility] for eRx and Interaction Alerts*, Taking urea 400 MG/ML Topical Cream CUTANEOUS , Notes to Pharmacist: urea 400 MG/ML Topical CreamOriginal Medicationurea 400 MG/ML Topical Cream *Reorder from [facility] for eRx and Interaction Alerts*, Medication List reviewed and reconciled with the patient * Allergies: D uricef: Allergy - Onset Date 09/04/2012, Bactroban: Allergy - Onset Date 12/13/2014, Latex: Allergy - Onset Date 12/16/2014. Objective: * Vitals: * Examination: C onstitutional: Constitutional T he patient is awake, alert, well developed, well groomed and well nourished. D ermatologic: Skin findings: S kin is thin, atrophic and lacking pedal hair. Hypertrophic / hyperkeratotic lesion: p lantar aspect of the left 2nd and 5th metatarsal heads. Nail pathology: N ails 1, 2, 3, [...] P ain in right foot - M79.671 ? 3 . P ain in left foot - M79.672 4 . A therosclerosis of mi'kmaq arteries of extremities with intermittent claudication, bilateral legs - I70.213 5 . Acquired keratosis [keratoderma] palmaris et plantaris - L85.1 Plan: * Treatment: 2. A cquired keratosis [keratoderma] palmaris et plantaris Notes: A total of 2 corns or calluses, as described in the note above, were cut and pared utilizing a #15 blade * Follow Up: 1 0 - 12 weeks (Reason: At-Risk Foot care, sooner if problems develop.) * Billing Information: * Visit Code: * Procedure Codes: * Electronic signature of LISA BUTLER DPM on 12/21/2024 at 04:01 PM CABLE SPLICER ASSISTANT Sign off status: Pending * Provider: Ramirez Butler DPM Date: 0 12/17/2024 Generated for Santi torres/[place] on: 0 12/21/2024 04:01 PM CABLE SPLICER ASSISTANT History and Physical Notes * HPI [...] Date last seen by Dr. Viramontes was 11/2024., Initials [facility] Examination Category Sub-Category Detail Notes Category Not es Dermatologic Skin findings: Skin is thin, at rophic and lacking pedal hair Nail pathology: Nails 1, 2, 3, 4, an d 5 bilateral are elongated, thick, discolored, and dystrophic with subungual debris. They are painful to palpation Hypertrophic / hyperkeratotic lesion: pl wolf aspect of the left 2nd and 5th metatarsal heads Neurologic Gross sensation Gross [...]
--- OUTSIDE RECORDS SUMMARY | 2024-12-21 16:02 | XMS_ITS | Clinical Summary ---
Author Organization [facility] [address] [facility] [address] Address [address] [facility] [address] [place] [address] Care Team Providers Care Digital Strategy Specialist Name Role Phone Janeth Viramontes MD Primary Care Provider Allergies Active Allergy Reactions Criticality Noted Date Comments Adhesive Tape-Silicones Rash Medium Bacitracin Cefadroxil Hives,Rash Medium Latex Rash Medium Neomycin Polymyxin B Medications levothyroxine (SYNTHROID, LEVOTHROID) 200 mcg tablet take 1 by Oral route once a day ecxept 1/2 a tablet sat and sun [address] (PROTONIX) 40 mg EC tablet take 1 tablet by oral route every day 0 0 4 Active PARoxetine (PAXIL) 40 mg tablet Take 1 tablet (40 mg total) by mouth every morning Active VIT C/E/ZN/COPPR/LUT EIN/ZEAXAN (PRESERVISION AREDS 2 ORAL) Take by mouth. A ctive flaxseed oil oil Act german fluticasone propionate (FLONASE) 50 mcg/actuation nasal spray Administer 1 spray into each nostril daily Active ipratropium/albu terol sulfate (IPRATROPIUM-ALB UTEROL INHAL) Inhale Active famotidine (PEPCID) 20 mg tablet Take 1 tablet (20 mg total) by mouth nightly as needed for heartburn Active aspirin 81 mg enteric coated tabletIndication s:prevention of thrombosis Take 1 tablet (81 mg total) by mouth daily 0 0 Active cyanocobalamin (Vitamin B-12) 1,000 mcg sublingual tablet Take 1 tablet (1,000 mcg total) by mouth daily Active cholecalciferol (VITAMIN D-3) 80795 unit capsule Take 1 capsule (10,000 Units total) by mouth daily Active zoledronic acid/mannitol-wa ter (RECLAST IV) Infuse into a venous catheter Infusion Active latanoprost (XALATAN) 0.005 % ophthalmic solution 4 Active carboxymethylcel lulose sodium (REFRESH PLUS OPHT) Administer into affected eye(s) Active nitroglycerin (NITROSTAT) 0.4 mg SL tablet DISSOLVE ONE TABLET UNDER THE TONGUE EVERY 5 MINUTES NEEDED FOR CHEST PAIN. DO NOT EXCEED A TOTAL OF 3 DOSES IN 15 MINUTES 25 tablet 11 4 Active potassium chloride ER (KLOR-CON) 10 mEq CR tablet Take 1 tablet/capsule (10 mEq total) by mouth daily 4 01/18/20 25 Active hydroCHLOROthiaz booker (HYDRODIURIL) 25 mg tablet Take 1 tablet (25 mg total) by mouth daily 2 Active ipratropium (ATROVENT) 42 mcg (0.06 %) nasal spray USE 2 SPRAY(S) IN EACH NOSTRIL TWICE DAILY 4 Active losartan (COZAAR) 100 mg tablet Take 1 tablet (100 mg total) by mouth daily Active furosemide (LASIX) 40 mg tabletIndication s:OWENS (dyspnea on exertion) Take 1.5 tablets (60 mg total) by mouth daily 4 Active metoprolol tartrate (LOPRESSOR) 25 mg immediate release tablet Take 1 tablet by mouth twice daily 180 tablet 2 4 Active gabapentin (NEURONTIN) 100 mg capsule Take 1 capsule (100 mg total) by mouth 3 (three) times a day 4 Active isosorbide mononitrate ER (IMDUR) 30 mg 24 hr tablet Take 3 tablets (90 mg total) by mouth daily 270 tablet 4 Active pravastatin (PRAVACHOL) 40 mg tablet Take 1 tablet by mouth once daily 90 tablet 4 Active Active Problems Problem Noted Date Diagnosed Date JULISSA on CPAP 09/15/2023 Localized edema 09/24/2022 Mixed hyperlipidemia 11/10/2021 QT prolongation 11/10/2021 Biliary tract disease 04/01/2020 Abdominal pain 04/01/2020 Elevated amylase 04/01/2020 Generalized abdominal pain 02/13/2020 Overview (04/01/2020): Added automatically from request for surgery [id number] Palpitations 01/09/2020 Chronic fatigue 01/09/2020 Preoperative cardiovascular examination 07/04/20 19 OWENS (dyspnea on exertion) 04/20/2018 Orthostatic hypotension 10/19/2016 Overview (02/18/2017): Orthostatic hypotension 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 (02/18/2017): Coronary vasospasm Thoracic back pain 12/29/2015 Overview (02/18/2017): Thoracic back pain, unspecified back pain laterality Coronary arteriosclerosis in [place] artery 11/04 Overview (02/18/2017): Coronary artery disease involving [place] coronary artery of [place] heart with other form of angina pectoris Left ventricular dilatation 11/04/2015 Overview (02/18/2017): LVE (left ventricular enlargement) Coronary artery disease invo lving [place] coronary artery of [place] heart with angina pectoris with documented spasm 04/16/2014 Overview (02/18/2017): CAD (coronary artery disease) Angina pectoris 04/16/2014 Overview (02/18/2017): Cardiac microvascular disease Chest pain 04/16/2014 Overview (02/18/2017): Chest pain Hypertension 04/16/2014 Overview (02/18/2017): HTN (hypertension), benign Mass of breast 11/17/2012 GERD (gastroesophageal reflux disease) Resolved Problems Problem Noted Date Diagnosed Date Resolved Date Dyslipidemia 04/16/2014 11/10/2021 Overview (02/18/2017): Dyslipidemia Encounters Date Type Department Care Team Description 10/09/2024 1:45 PM DISPATCHER TUGBOAT Office Visit [facility] Medical [facility] Cardiology [address] [facility] [address] [place] [address] Umesh Telles MD Coronary arteriosclerosis in [place] artery (Primary Dx); OWENS (dyspnea on exertion); Mixed hyperlipidemia; JULISSA on CPAP; Primary hypertension 10/09/2024 Orders Only [facility] Cardiology [address] [facility] [address] [place] [phone] ProviderMelanie MD 10/09/2024 Telephone [facility] Cardiology [address] [facility] [address] [place] [phone] Umesh Telles MD Med Refill from Last 3 Months Surgical History Surgery Date Site/Laterality Comments APPENDECTOMY CATARACT EXTRACTION CHOLECYSTECTOMY HYSTERECTOMY SPINE SURGERY ERCP UPPER GASTROINTESTINAL ENDOSCOPY JOINT REPLACEMENT Medical History Medical History Date Comments Coronary artery spasm (HCC) Dyslipidemia Hypertension GERD (gastroesophageal reflux disease) Anxiety Heart disease Thyroid disease Cataract Arthritis Sleep apnea Family History Medical History Relation Name Comments Heart attack Brother Ji Underwood Heart disease Brother Ji Underwood Hypertension Brother Ji Underwood COPD Father Taye Underwood Cancer Father Taye Underwood Heart failure Father Taye Underwood Congestive he art failure; Hypertension Father Taye Underwood Vision loss Father Taye Underwood Alzheimer's disease Mother Aydee Underwood Heart attack Mother Aydee Underwood Heart disease Mother Aydee Underwood Heart failure Mother Aydee Underwood Congestive hea rt failure; Hypertension Mother Aydee Underwood Obesity Mother Aydee Underwood Stroke Mother Aydee Underwood Relation Name Status Comments Brother Ji Underwood Father Taye Underwood (Age 88) Mother Aydee Underwood (Age 78) Social History Tobacco Use Types Packs/Day Years Used Date Smoking Tobacco: Never Cigarettes Smokeless Tobacco: Never Tobacco Cessation:Counseling Given: Not Answered Alcohol Use Standard Drinks/Week Comments No 0 (1 standard drink = 0.6 oz pur e alcohol) PHQ-2 Answer Date Recorded PHQ-2 Total Score (If total score is 3 or more points, staff should administer the PHQ-9) 0 03/31/2020 Comments No Sex and Gender Information Value Date Recorded Sex Assigned at Not on file Legal Sex Female 3:37 PM DISPATCHER TUGBOAT Gender Identity Female 05/06/2020 3:45 PM CDT Sexual Orientation Straight 01/31/2020 9: 43 AM CDT Obstetrics History Last Filed Vital Signs Vital Sign Reading Time Taken Comments Blood Pressure 130/62 10/09/2024 1:45 PM DISPATCHER TUGBOAT Pulse 67 10/09/2024 1:45 PM DISPATCHER TUGBOAT Temperature 36.8 C (98.3 F) 04/02/2020 12:00 PM CDT Respiratory Rate 16 11/10/2021 9:02 AM DISPATCHER TUGBOAT Oxygen Saturation 96% 10/09/2024 1:45 PM DISPATCHER TUGBOAT Inhaled Oxygen Concentration - - Weight 96.6 kg (213 lb) 10/09/2024 1:45 PM DISPATCHER TUGBOAT Height 167.6 cm (5' 6 ) 10/09/2024 1:45 PM DISPATCHER TUGBOAT Body Mass Index 34.38 10/09/2024 1:45 PM DISPATCHER TUGBOAT Plan of Treatment Health Maintenance Due Date Last Done Comments Hepatitis C Screening 1945 Osteoporosis Screening-Bone Density Scan 1945 DTaP/Tdap/Td Vaccine (1 - Tdap) 1958 Hepatitis B Screening 1965 Zoster Vaccine (1 of 2) 1997 Well Visit 65+ 2012 Depression Screening 02/12/2021 02/13/2020, 02/13/20 20 Fall Risk Assessment 04/02/2021 04/02/2020 Covid-19 Vaccine (4 - 2023-2 5 season) 2024 08/14/2021, 01/23/2021, 01/02/2021 Influenza Vaccine (#1) 2024 , 07/18/2020, 08/01/2019, Additional history exists Pneumococcal vaccine 65+ Completed 021, 10/13/2015, 10/24/2012, Additional history exists Medical Devices Explanted Type Area Spoon Maker Device Identifier Shelf Expiration Date Model / Serial / Lot [employer] 6571 Chris Flexi-Stent 7fr 3cm Small Pigtail Flexible .035in Stent - [id number] Implanted:Qty : 1 on 03/31/2020 by Ricky Jeter MD at [facility] Explanted:Qty : 1 on 04/02/2020 by Ricky Jeter MD at [facility] Stent N/A: Pancreas [employer] 09/13/2024 [id number] / / [id number] Conmed Purnima [id number] [place] Viabil 10mm 8.5fr 6cm 200cm Fully Covered Self Expand Pull - [id number] - [id number] Implanted:Qty : 1 on 03/31/2020 by Ricky Jeter MD at [facility] Explanted:Qty : 1 on 04/02/2020 by Ricky Jeter MD at [facility] Stent N/A: Bile Duct Conmed Purnima 12/20/2022 [id number] / [id number] / Procedures Procedure Name Priority Date/Time Associated Diagnosis Comments LIPID PANEL Routine 09/22/2024 3:07 PM DISPATCHER TUGBOAT from Last 3 Months Results * Lipid panel (09/22/2024 3:07 PM DISPATCHER TUGBOAT) SCRIBED Cholesterol, Total 157 <200 EXTERNAL LAB SCRIBED HDL 68 >40 EXTERNAL LAB SCRIBED LDL 73 <100 EXTERNAL LAB SCRIBED Triglycerides 79 <150 EXTERNAL LAB Blood us Historical Provider LAB BLOOD ORDERABLES Edit ed Result - Final EXTERNAL LAB from Last 3 Months Insurance MEDICARE MEDICARE Member Subscriber Plan / Payer (Ef fective 2012-Present) Name:Betzy Juarez Member ID:[id number] Relation to Subscriber:Self Name:Betzy Juarez Subscriber ID:[id number] Payer ID:[id number] Group ID:Not on file Type:MEDICARE TRADITIONAL Address: [place] [id number] [facility] MEDICARE [place] MEDICARE SUPPLEMENT Advance Directives For more information, please contact: [phone] * Full Code (Latest Code Status on File) Date Activated Date Inactivated Comments 03/31/2020 8:47 AM 04/02/2020 5:04 PM Care Teams Digital Strategy Specialist Relationship Specialty Start Date End Date Janeth Viramontes MD [address] [place] [address] PCP - General 09/16/11
--- OUTSIDE RECORDS SUMMARY | 2024-12-21 16:02 | XMS_ITS | Referral Summary ---
Author Organization [place] [address] [place] [address] Care Team Providers Care Mice Raiser Name Role Phone Janeth Viramontes MD Primary Care Provider Encounters Date Type Department Care Team Description 10/09/[address] [facility] Medical [facility] Cardiology [address] [place] [address] [address] [place] [address] ProviderMelanie MD 10/09/[address] [facility] Medical [facility] Cardiology [address] [place] [address] [address] [place] [address] Umesh Telles MD Med Refill 10/09/2024 1:45 PM SALES PROJECT COORDINATOR Office Visit [facility] Medical [facility] Cardiology [address] [place] [address] [address] [place] [address] Umesh Telles MD Coronary arteriosclerosis in [place] artery (Primary Dx); OWENS (dyspnea on exertion); Mixed hyperlipidemia; JULISSA on CPAP; Primary hypertension from Last 3 Months Allergies Active Allergy Reactions Criticality Noted Date [...] by mouth daily Active cholecalciferol (VITAMIN D-3) 23709 unit capsule Take 1 capsule (10,000 Units [...] (04/01/2020): Added automatically from request for surgery [id number] Palpitations 01/09/2020 Chronic fatigue 01/09/2020 Preoperative cardiovascular examination 07/04/20 19 OWENS (dyspnea on exertion) 04/20/2018 Orthostatic hypotension 10/19/2016 Overview (02/18/2017): Orthostatic hypotension 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 (02/18/2017): Coronary vasospasm Thoracic back pain 12/29/2015 Overview (02/18/2017): Thoracic back pain, unspecified back pain laterality Coronary arteriosclerosis in [place] artery 11/04 Overview (02/18/2017): Coronary artery disease involving [place] coronary artery of [place] heart with other form of angina pectoris Left ventricular dilatation 11/04/2015 Overview (02/18/2017): LVE (left ventricular enlargement) Coronary artery disease invo lving [place] coronary artery of [place] heart with angina pectoris with documented spasm 04/16/2014 Overview (02/18/2017): CAD (coronary artery disease) Angina pectoris 04/16/2014 Overview (02/18/2017): Cardiac microvascular disease Chest pain 04/16/2014 Overview (02/18/2017): Chest pain Hypertension 04/16/2014 Overview (02/18/2017): HTN (hypertension), benign Mass of breast 11/17/2012 GERD (gastroesophageal reflux disease) Resolved Problems Problem Noted Date Diagnosed Date Resolved Date Dyslipidemia 04/16/2014 11/10/2021 Overview (02/18/2017): Dyslipidemia Social History Tobacco Use Types Packs/Day Years [...] on file Legal Sex Female 3:37 PM SALES PROJECT COORDINATOR Gender Identity Female 05/06/2020 3:45 PM CDT Sexual Orientation Straight 01/31/2020 9: 43 AM CDT Last Filed Vital Signs Vital Sign Reading Time Taken Comments Blood Pressure 130/62 10/09/2024 1:45 PM SALES PROJECT COORDINATOR Pulse 67 10/09/2024 1:45 PM SALES PROJECT COORDINATOR Temperature 36.8 C (98.3 F) 04/02/2020 12:00 PM CDT Respiratory Rate 16 11/10/2021 9:02 AM SALES PROJECT COORDINATOR Oxygen Saturation 96% 10/09/2024 1:45 PM SALES PROJECT COORDINATOR Inhaled Oxygen Concentration - - Weight 96.6 kg (213 lb) 10/09/2024 1:45 PM SALES PROJECT COORDINATOR Height 167.6 cm (5' 6 ) 10/09/2024 1:45 PM SALES PROJECT COORDINATOR Body Mass Index 34.38 10/09/2024 1:45 PM SALES PROJECT COORDINATOR Plan of Treatment Not on file Medical Devices Explanted Type Area Ticket Collector Or Usher Device Identifier Shelf Expiration Date Model / Serial / Lot [employer] 6571 Chris Flexi-Stent 7fr 3cm Small Pigtail Flexible .035in Stent - [id number] Implanted:Qty : 1 on 03/31/2020 by Ricky Jeter MD at [facility] Explanted:Qty : 1 on 04/02/2020 by Ricky Jeter MD at [facility] Stent N/A: Pancreas [employer] 09/13/2024 [id number] / / [id number] Conmed Purnima [id number] [place] Viabil 10mm 8.5fr 6cm 200cm Fully Covered Self Expand Pull - [id number] - [id number] Implanted:Qty : 1 on 03/31/2020 by Ricky Jeter MD at [facility] Explanted:Qty : 1 on 04/02/2020 by Ricky Jeter MD at [facility] Stent N/A: Bile Duct [employer]med Purnima 12/20/2022 [id number] / [id number] / Procedures Procedure Name Priority Date/Time Associated Diagnosis Comments LIPID PANEL Routine 09/22/2024 3:07 PM SALES PROJECT COORDINATOR from Last 3 Months Results * Lipid panel (09/22/2024 3:07 PM SALES PROJECT COORDINATOR) SCRIBED Cholesterol, Total 157 <200 EXTERNAL LAB SCRIBED HDL 68 >40 EXTERNAL LAB SCRIBED LDL 73 <100 EXTERNAL LAB SCRIBED Triglycerides 79 <150 EXTERNAL LAB Blood us Historical Provider LAB BLOOD ORDERABLES Edit ed Result - Final EXTERNAL LAB from Last 3 Months Insurance MEDICARE MEDICARE [facility] MEDICARE [facility] MEDIC[facility] SUPPLEMENT Advance Directives For more information, please contact: [phone] * Full Code (Latest Code Status on File) Date Activated Date Inactivated Comments 03/31/2020 8:47 AM 04/02/2020 5:04 PM Care Teams Mice Raiser Relationship Specialty Start Date End Date Janeth Viramontes MD [address] [place] [address] PCP - General 09/16/11
[2024-12-21 16:28] LABS: Hematocrit 38.1 % (35.0-42.0); Hemoglobin 12.9 g/dL (11.7-13.8); Mean Corpuscular HGB Conc 33.9 g/dL (32-36); Mean Corpuscular Hemoglobin 31.9 pg (27.0-31.0); Mean Corpuscular Volume 94.1 fL (78.0-102.0); Mean Platelet Volume 8.7 fl (9.2-11.8); Platelet Count Result 371 K/mm3 (150-420); Red Blood Count 4.05 M/mm3 (4.20-5.40); Red Cell Distribution Width 12.1 % (11.6-14.4); White Blood Count 8.9 K/mm3 (4.8-10.8)
[2024-12-21 16:41] LABS: Alanine Aminotransferase 35 U/L (14-59); Alkaline Phosphatase 67 U/L (46-116); Aspartate Amino Transferase 24 U/L (15-37); Bilirubin,Total 0.4 mg/dL (0.00-1.00); Calcium 9.4 mg/dL (8.5-10.1); Chloride 91 mmol/L (98-108); Estimated Glomerular Filt Rate 56; NT Pro B Type Natriuretic Pept 170 pg/mL (0-450); Potassium 3.5 mmol/L (3.5-5.1); Sodium 132 mmol/L (136-145); Total Protein 7.1 g/dL (6.4-8.2)
[2024-12-21 16:50] LABS: Albumin Level 3.5 g/dL (3.4-5.0); Anion Gap 8 mmol/L (4-12); Blood Urea Nitrogen 18 mg/dL (7-18); Carbon Dioxide 33 mmol/L (21-32); Glucose 114 mg/dL (70-99); Osmolality Calculated 276 mOsm/kg (285-295)
[2024-12-21 16:54] LABS: Influenza A QL RT-PCR Negative (Negative); Influenza B QL RT-PCR Negative (Negative); RSV RNA, RT-PCR Negative (Negative); SARS-CoV-2 RNA PCR Negative (Negative)
== END 2024-12-21 15:57 | disposition home or self-care (01) ==
PROVIDERS: PCP Internal Medicine; Visit Provider Internal Medicine
DX: R05.9 Cough, unspecified (principal); R06.02 Shortness of breath
CPT/HCPCS: 36415; 71046; 80053; 83880; 85027; 87637

== ENCOUNTER 2024-12-27 11:24 | Outpatient (CLI) | payer MEDICARE, SELFPAY ==
--- OUTSIDE RECORDS SUMMARY | 2024-12-27 11:33 | XMS_ITS ---
Author Organization [facility] Address [address] [place], [place] [id number] Care Team Providers Care Monitoring Manager Name Role Phone LISA BUTLER Unavailable [phone] Janeth Viramontes Unavailable Unavailable Allergies Allergen (clinical [...] Medicationfurosemide 40 MG Oral Tablet *Reorder from [facility] for eRx and Interaction Alerts* 0 Active levothyroxine sodium 0.2 MG Oral Tablet ORAL levothyroxine sodium 0.2 MG Oral TabletOriginal Medicationlevothyroxine sodium 0.2 MG Oral Tablet *Reorder from [facility] for eRx and Interaction Alerts* 0 Active Medrol Dosepak ORAL Medrol DosepakOr iginal MedicationMedrol Dosepak *Reorder from [facility] for eRx and Interaction Alerts* 3 Active urea 400 MG/ML Topical Cream CUTANEOUS urea 400 MG/ML Topical CreamOriginal Medicationurea 400 MG/ML Topical Cream *Reorder from [employer] for eRx and Interaction Alerts* 3 Active pantoprazole 40 MG Delayed Release Oral Tablet ORAL pantoprazole 40 MG Delayed Release Oral TabletOriginal Medicationpantoprazole 40 MG Delayed Release Oral Tablet *Reorder from [employer] for eRx and Interaction Alerts* 0 Active clotrimazole 10 MG/ML Topical Solution CUTANEOUS clotrimazole 10 MG/ML Topical SolutionOriginal Medicationclotrimazole 10 MG/ML Topical Solution *Reorder from [employer] for eRx and Interaction Alerts* 4 Active ipratropium bromide 0.042 MG/ACTUAT Metered Dose Nasal [place] ipratropium bromide 0.042 MG/ACTUAT Metered Dose Nasal SprayOriginal Medicationipratropium bromide 0.042 MG/ACTUAT Metered Dose Nasal [place] *Reorder from [employer] for eRx and Interaction Alerts* 0 Active calcium carbonate 600 MG / cholecalciferol 125 UNT Oral Tablet ORAL calcium carbonate 600 MG / cholecalciferol 125 UNT Oral TabletOriginal Medicationcalcium carbonate 600 MG / cholecalciferol 125 UNT Oral Tablet *Reorder from [employer] for eRx and Interaction Alerts* 6 Active ciclopirox 80 MG/ML Topical Solution ciclopirox 80 MG/ML Topical SolutionOriginal Medicationciclopirox 80 MG/ML Topical Solution *Reorder from [employer] for eRx and Interaction Alerts* 7 Active aspirin 81 MG Delayed Release Oral Tablet ORAL aspirin 81 MG Delayed Release Oral TabletOriginal Medicationaspirin 81 MG Delayed Release Oral Tablet *Reorder from [facility] for eRx and Interaction Alerts* 6 Active Isosorbide Mononitrate 20 MG Oral Tablet ORAL isosorbide mononitrate 20 MG Oral TabletOriginal Medicationisosorbide mononitrate 20 MG Oral Tablet *Reorder from [employer] for eRx and Interaction Alerts* 0 Active Famotidine 20 MG Oral Tablet ORAL famotidine 20 MG Oral TabletOriginal Medicationfamotidine 20 MG Oral Tablet *Reorder from [facility] for eRx and Interaction Alerts* 0 Active amlodipine 10 MG Oral Tablet ORAL amlodipine 10 MG Oral TabletOriginal Medicationamlodipine 10 MG Oral Tablet *Reorder from [facility] for eRx and Interaction Alerts* 0 Active Lisinopril 10 MG Oral Tablet ORAL lisinopril 10 MG Oral TabletOriginal Medicationlisinopril 10 MG Oral Tablet *Reorder from [facility] for eRx and Interaction Alerts* 0 Active 12 HR ranolazine 1000 MG Extended Release Oral Tablet [Ranexa] ORAL 12 HR ranolazine 1000 MG Extended Release Oral Tablet [Ranexa]Original [id number] HR ranolazine 1000 MG Extended Release Oral Tablet [Ranexa] *Reorder from [facility] for eRx and Interaction Alerts* 6 Active Encounters Encounter Location Date Provider Diagnosis [facility] [address] [place], [place] [id number] 06/25/2024 LISA KAILEYK Tinea unguium B35.1 ; Pain in right foot M79.671 ; Pain in left foot M79.672 ; Atherosclerosis of [place] arteries of extremities with intermittent claudication, bilateral [...] foot (ICD-10 - M79.672) 06/25/2024 Atherosclerosis of [place] arteries of extremities with intermittent claudication, bilateral [...] Name:LISA BUTLER, 10:30:00 AM, [address], [address], [phone], Progress Notes * FREDDIE MARTÍNEZ SDOB:[birth year] (78 yo F)Acc No.[id number]:06/25/2024 Patient: FREDDIE QUARLES Provider: Ramirez Butler DPM :1945 A ge:78 Y S ex:Female Date:06/25/2024 Address:[address] [place] [address] Subjective: * Chief Complaints: * 1 . [...] Medicationfurosemide 40 MG Oral Tablet *Reorder from [facility] for eRx and Interaction Alerts*, Taking Famotidine 20 MG Oral Tablet ORAL , Notes to Pharmacist: famotidine 20 MG Oral TabletOriginal Medicationfamotidine 20 MG Oral Tablet *Reorder from [facility] for eRx and Interaction Alerts*, Taking Isosorbide Mononitrate 20 MG Oral Tablet ORAL , Notes to Pharmacist: isosorbide mononitrate 20 MG Oral TabletOriginal Medicationisosorbide mononitrate 20 MG Oral Tablet *Reorder from [facility] for eRx and Interaction Alerts*, Taking Lisinopril 10 MG Oral Tablet ORAL , Notes to Pharmacist: lisinopril 10 MG Oral TabletOriginal Medicationlisinopril 10 MG Oral Tablet *Reorder from [facility] for eRx and Interaction Alerts*, Taking 12 HR ranolazine 1000 MG Extended Release Oral Tablet [Ranexa] ORAL , Notes to Pharmacist: 12 HR ranolazine 1000 MG Extended Release Oral Tablet [Ranexa]Original [id number] HR ranolazine 1000 MG Extended Release Oral Tablet [Ranexa] *Reorder from [facility] for eRx and Interaction Alerts*, Taking amlodipine 10 MG Oral Tablet ORAL , Notes to Pharmacist: amlodipine 10 MG Oral TabletOriginal Medicationamlodipine 10 MG Oral Tablet *Reorder from [facility] for eRx and Interaction Alerts*, Taking aspirin 81 MG Delayed Release Oral Tablet ORAL , Notes to Pharmacist: aspirin 81 MG Delayed Release Oral TabletOriginal Medicationaspirin 81 MG Delayed Release Oral Tablet *Reorder from [facility] for eRx and Interaction Alerts*, Taking calcium carbonate 600 MG / cholecalciferol 125 UNT Oral Tablet ORAL , Notes to Pharmacist: calcium carbonate 600 MG / cholecalciferol 125 UNT Oral TabletOriginal Medicationcalcium carbonate 600 MG / cholecalciferol 125 UNT Oral Tablet *Reorder from [facility] for eRx and Interaction Alerts*, Taking ciclopirox 80 MG/ML Topical Solution , Notes to Pharmacist: ciclopirox 80 MG/ML Topical SolutionOriginal Medicationciclopirox 80 MG/ML Topical Solution *Reorder from [facility] for eRx and Interaction Alerts*, Taking clotrimazole 10 MG/ML Topical Solution CUTANEOUS , Notes to Pharmacist: clotrimazole 10 MG/ML Topical SolutionOriginal Medicationclotrimazole 10 MG/ML Topical Solution *Reorder from [facility] for eRx and Interaction Alerts*, Taking ipratropium bromide 0.042 MG/ACTUAT Metered Dose Nasal [place] , Notes to Pharmacist: ipratropium bromide 0.042 MG/ACTUAT Metered Dose Nasal SprayOriginal Medicationipratropium bromide 0.042 MG/ACTUAT Metered Dose Nasal [place] *Reorder from [facility] for eRx and Interaction Alerts*, Taking levothyroxine sodium 0.2 MG Oral Tablet ORAL , Notes to Pharmacist: levothyroxine sodium 0.2 MG Oral TabletOriginal Medicationlevothyroxine sodium 0.2 MG Oral Tablet *Reorder from [facility] for eRx and Interaction Alerts*, Taking Medrol Dosepak ORAL , Notes to Pharmacist: Medrol DosepakOriginal MedicationMedrol Dosepak *Reorder from [facility] for eRx and Interaction Alerts*, Taking pantoprazole 40 MG Delayed Release Oral Tablet ORAL , Notes to Pharmacist: pantoprazole 40 MG Delayed Release Oral TabletOriginal Medicationpantoprazole 40 MG Delayed Release Oral Tablet *Reorder from [facility] for eRx and Interaction Alerts*, Taking urea 400 MG/ML Topical Cream CUTANEOUS , Notes to Pharmacist: urea 400 MG/ML Topical CreamOriginal Medicationurea 400 MG/ML Topical Cream *Reorder from [facility] for eRx and Interaction Alerts* * Allergies: [...] - M79.672 4 . A therosclerosis of [place] arteries of extremities with intermittent claudication, bilateral [...] LESIONS, 2 TO 4, Modifiers: Q8 , 45608 DEBRIDE NAIL, 6 OR MORE, Modifiers: 59 , Q8 * Follow Up: 1 0 - 12 weeks (Reason: At-Risk Foot care, sooner if problems develop.) * Billing Information: * Visit Code: * Procedure Codes: 45401 TRIM SKIN LESIONS, 2 TO 4. Modifiers: Q8 15836 DEBRIDE NAIL, 6 OR MORE. Modifiers: 59, Q8 * Sign off status: Completed true * Provider: Ramirez Butler DPM Date: 0 06/25/2024 Generated for Santi torres/Milton/Kelton on: 0 12/27/2024 11:33 AM SENIOR EDITOR History and Physical Notes * HPI (History [...] seen by Dr. Viramontes was 04/2024., Initials [facility] Examination Category Sub-Category Detail Notes Category [...]
--- OUTSIDE RECORDS SUMMARY | 2024-12-27 11:33 | XMS_ITS ---
Author Organization [facility] Address [address] [place], [place] [id number] Care Team Providers Care Sample Sawyer Name Role Phone LISA BUTLER Unavailable [phone] Janeth Viramontes Unavailable Unavailable Allergies Allergen (clinical [...] mononitrate 20 MG Oral Tablet *Reorder from [facility] for eRx and Interaction Alerts* 0 Active 12 HR ranolazine 1000 MG Extended Release Oral Tablet [Ranexa] ORAL 12 HR ranolazine 1000 MG Extended Release Oral Tablet [Ranexa]Original [id number] HR ranolazine 1000 MG Extended Release Oral Tablet [Ranexa] *Reorder from [facility] for eRx and Interaction Alerts* 6 Active Lisinopril 10 MG Oral Tablet ORAL lisinopril 10 MG Oral TabletOriginal Medicationlisinopril 10 MG Oral Tablet *Reorder from [facility] for eRx and Interaction Alerts* 0 Active aspirin 81 MG Delayed Release Oral Tablet ORAL aspirin 81 MG Delayed Release Oral TabletOriginal Medicationaspirin 81 MG Delayed Release Oral Tablet *Reorder from [facility] for eRx and Interaction Alerts* 6 Active amlodipine 10 MG Oral Tablet ORAL amlodipine 10 MG Oral TabletOriginal Medicationamlodipine 10 MG Oral Tablet *Reorder from [facility] for eRx and Interaction Alerts* 0 Active pantoprazole 40 MG Delayed Release Oral Tablet ORAL pantoprazole 40 MG Delayed Release Oral TabletOriginal Medicationpantoprazole 40 MG Delayed Release Oral Tablet *Reorder from [facility] for eRx and Interaction Alerts* 0 Active Famotidine 20 MG Oral Tablet ORAL famotidine 20 MG Oral TabletOriginal Medicationfamotidine 20 MG Oral Tablet *Reorder from [facility] for eRx and Interaction Alerts* 0 Active Medrol Dosepak ORAL Medrol DosepakOr iginal MedicationMedrol Dosepak *Reorder from [facility] for eRx and Interaction Alerts* 3 Active urea 400 MG/ML Topical Cream CUTANEOUS urea 400 MG/ML Topical CreamOriginal Medicationurea 400 MG/ML Topical Cream *Reorder from [facility] for eRx and Interaction Alerts* 3 Active Furosemide 40 MG Oral Tablet ORAL furosemide 40 MG Oral TabletOriginal Medicationfurosemide 40 MG Oral Tablet *Reorder from [facility] for eRx and Interaction Alerts* 0 Active ciclopirox 80 MG/ML Topical Solution ciclopirox 80 MG/ML Topical SolutionOriginal Medicationciclopirox 80 MG/ML Topical Solution *Reorder from [facility] for eRx and Interaction Alerts* 7 Active calcium carbonate 600 MG / cholecalciferol 125 UNT Oral Tablet ORAL calcium carbonate 600 MG / cholecalciferol 125 UNT Oral TabletOriginal Medicationcalcium carbonate 600 MG / cholecalciferol 125 UNT Oral Tablet *Reorder from [facility] for eRx and Interaction Alerts* 6 Active clotrimazole 10 MG/ML Topical Solution CUTANEOUS clotrimazole 10 MG/ML Topical SolutionOriginal Medicationclotrimazole 10 MG/ML Topical Solution *Reorder from [facility] for eRx and Interaction Alerts* 4 Active levothyroxine sodium 0.2 MG Oral Tablet ORAL levothyroxine sodium 0.2 MG Oral TabletOriginal Medicationlevothyroxine sodium 0.2 MG Oral Tablet *Reorder from [facility] for eRx and Interaction Alerts* 0 Active ipratropium bromide 0.042 MG/ACTUAT Metered Dose Nasal [place] ipratropium bromide 0.042 MG/ACTUAT Metered Dose Nasal SprayOriginal Medicationipratropium bromide 0.042 MG/ACTUAT Metered Dose Nasal [place] *Reorder from [facility] for eRx and Interaction Alerts* 0 Active Encounters Encounter Location Date Provider Diagnosis [facility] [address] [place], [place] [phone] 09/17/2024 LISA SNOOK Tinea unguium B35.1 ; Pain in right toe(s) M79.674 ; Pain in left toe(s) M79.675 and Atherosclerosis of [place]ga[place] arteries of extremities with intermittent claudication, bilateral [...] toe(s) (ICD-10 - M79.675) 09/17/2024 Atherosclerosis of algaaciq arteries of extremities with intermittent claudication, bilateral [...] problems arise Provider Name:LISA BUTLER, 10:30:00 AM, [address], [address], [phone], Progress Notes * FREDDIE MARTÍNEZ SDOB:[birth year] (79 yo F)Acc No.[id number]:09/17/2024 Patient: FREDDIE QUARLES Provider: Ramirez Butler DPM :1945 A ge:79 Y S ex:Female Date:09/17/2024 Address:[address] [place] [address] Subjective: * Chief Complaints: * Adithya olivera [...] Medicationfurosemide 40 MG Oral Tablet *Reorder from [facility] for eRx and Interaction Alerts*Famotidine 20 MG Oral Tablet ORAL , Notes to Pharmacist: famotidine 20 MG Oral TabletOriginal Medicationfamotidine 20 MG Oral Tablet *Reorder from [facility] for eRx and Interaction Alerts*Isosorbide Mononitrate 20 MG Oral Tablet ORAL , Notes to Pharmacist: isosorbide mononitrate 20 MG Oral TabletOriginal Medicationisosorbide mononitrate 20 MG Oral Tablet *Reorder from [facility] for eRx and Interaction Alerts*Lisinopril 10 MG Oral Tablet ORAL , Notes to Pharmacist: lisinopril 10 MG Oral TabletOriginal Medicationlisinopril 10 MG Oral Tablet *Reorder from [facility] for eRx and Interaction Alerts*12 HR ranolazine 1000 MG Extended Release Oral Tablet [Ranexa] ORAL , Notes to Pharmacist: 12 HR ranolazine 1000 MG Extended Release Oral Tablet [Ranexa]Original Parlezwkrb77 HR ranolazine 1000 MG Extended Release Oral Tablet [Ranexa] *Reorder from [facility] for eRx and Interaction Alerts*amlodipine 10 MG Oral Tablet ORAL , Notes to Pharmacist: amlodipine 10 MG Oral TabletOriginal Medicationamlodipine 10 MG Oral Tablet *Reorder from [facility] for eRx and Interaction Alerts*aspirin 81 MG Delayed Release Oral Tablet ORAL , Notes to Pharmacist: aspirin 81 MG Delayed Release Oral TabletOriginal Medicationaspirin 81 MG Delayed Release Oral Tablet *Reorder from [facility] for eRx and Interaction Alerts*calcium carbonate 600 MG / cholecalciferol 125 UNT Oral Tablet ORAL , Notes to Pharmacist: calcium carbonate 600 MG / cholecalciferol 125 UNT Oral TabletOriginal Medicationcalcium carbonate 600 MG / cholecalciferol 125 UNT Oral Tablet *Reorder from [facility] for eRx and Interaction Alerts*ciclopirox 80 MG/ML Topical Solution , Notes to Pharmacist: ciclopirox 80 MG/ML Topical SolutionOriginal Medicationciclopirox 80 MG/ML Topical Solution *Reorder from [facility] for eRx and Interaction Alerts*clotrimazole 10 MG/ML Topical Solution CUTANEOUS , Notes to Pharmacist: clotrimazole 10 MG/ML Topical SolutionOriginal Medicationclotrimazole 10 MG/ML Topical Solution *Reorder from [facility] for eRx and Interaction Alerts*ipratropium bromide 0.042 MG/ACTUAT Metered Dose Nasal [place] , Notes to Pharmacist: ipratropium bromide 0.042 MG/ACTUAT Metered Dose Nasal SprayOriginal Medicationipratropium bromide 0.042 MG/ACTUAT Metered Dose Nasal [place] *Reorder from [facility] for eRx and Interaction Alerts*levothyroxine sodium 0.2 MG Oral Tablet ORAL , Notes to Pharmacist: levothyroxine sodium 0.2 MG Oral TabletOriginal Medicationlevothyroxine sodium 0.2 MG Oral Tablet *Reorder from [facility] for eRx and Interaction Alerts*Medrol Dosepak ORAL , Notes to Pharmacist: Medrol DosepakOriginal MedicationMedrol Dosepak *Reorder from [facility] for eRx and Interaction Alerts*pantoprazole 40 MG Delayed Release Oral Tablet ORAL , Notes to Pharmacist: pantoprazole 40 MG Delayed Release Oral TabletOriginal Medicationpantoprazole 40 MG Delayed Release Oral Tablet *Reorder from [facility] for eRx and Interaction Alerts*urea 400 MG/ML Topical Cream CUTANEOUS , Notes to Pharmacist: urea 400 MG/ML Topical CreamOriginal Medicationurea 400 MG/ML Topical Cream *Reorder from [facility] for eRx and Interaction Alerts*Medication List reviewed and reconciled with the patientTaking Furosemide 40 MG Oral Tablet ORAL , Notes to Pharmacist: furosemide 40 MG Oral TabletOriginal Medicationfurosemide 40 MG Oral Tablet *Reorder from [facility] for eRx and Interaction Alerts*Taking Famotidine 20 MG Oral Tablet ORAL , Notes to Pharmacist: famotidine 20 MG Oral TabletOriginal Medicationfamotidine 20 MG Oral Tablet *Reorder from [facility] for eRx and Interaction Alerts*Taking Isosorbide Mononitrate 20 MG Oral Tablet ORAL , Notes to Pharmacist: isosorbide mononitrate 20 MG Oral TabletOriginal Medicationisosorbide mononitrate 20 MG Oral Tablet *Reorder from [facility] for eRx and Interaction Alerts*Taking Lisinopril 10 MG Oral Tablet ORAL , Notes to Pharmacist: lisinopril 10 MG Oral TabletOriginal Medicationlisinopril 10 MG Oral Tablet *Reorder from [facility] for eRx and Interaction Alerts*Taking 12 HR ranolazine 1000 MG Extended Release Oral Tablet [Ranexa] ORAL , Notes to Pharmacist: 12 HR ranolazine 1000 MG Extended Release Oral Tablet [Ranexa]Original [id number] HR ranolazine 1000 MG Extended Release Oral Tablet [Ranexa] *Reorder from [facility] for eRx and Interaction Alerts*Taking amlodipine 10 MG Oral Tablet ORAL , Notes to Pharmacist: amlodipine 10 MG Oral TabletOriginal Medicationamlodipine 10 MG Oral Tablet *Reorder from [facility] for eRx and Interaction Alerts*Taking aspirin 81 MG Delayed Release Oral Tablet ORAL , Notes to Pharmacist: aspirin 81 MG Delayed Release Oral TabletOriginal Medicationaspirin 81 MG Delayed Release Oral Tablet *Reorder from [facility] for eRx and Interaction Alerts*Taking calcium carbonate 600 MG / cholecalciferol 125 UNT Oral Tablet ORAL , Notes to Pharmacist: calcium carbonate 600 MG / cholecalciferol 125 UNT Oral TabletOriginal Medicationcalcium carbonate 600 MG / cholecalciferol 125 UNT Oral Tablet *Reorder from [facility] for eRx and Interaction Alerts*Taking ciclopirox 80 MG/ML Topical Solution , Notes to Pharmacist: ciclopirox 80 MG/ML Topical SolutionOriginal Medicationciclopirox 80 MG/ML Topical Solution *Reorder from [facility] for eRx and Interaction Alerts*Taking clotrimazole 10 MG/ML Topical Solution CUTANEOUS , Notes to Pharmacist: clotrimazole 10 MG/ML Topical SolutionOriginal Medicationclotrimazole 10 MG/ML Topical Solution *Reorder from [facility] for eRx and Interaction Alerts*Taking ipratropium bromide 0.042 MG/ACTUAT Metered Dose Nasal [place] , Notes to Pharmacist: ipratropium bromide 0.042 MG/ACTUAT Metered Dose Nasal SprayOriginal Medicationipratropium bromide 0.042 MG/ACTUAT Metered Dose Nasal [place] *Reorder from [facility] for eRx and Interaction Alerts*Taking levothyroxine sodium 0.2 MG Oral Tablet ORAL , Notes to Pharmacist: levothyroxine sodium 0.2 MG Oral TabletOriginal Medicationlevothyroxine sodium 0.2 MG Oral Tablet *Reorder from [facility] for eRx and Interaction Alerts*Taking Medrol Dosepak ORAL , Notes to Pharmacist: Medrol DosepakOriginal MedicationMedrol Dosepak *Reorder from [facility] for eRx and Interaction Alerts*Taking pantoprazole 40 MG Delayed Release Oral Tablet ORAL , Notes to Pharmacist: pantoprazole 40 MG Delayed Release Oral TabletOriginal Medicationpantoprazole 40 MG Delayed Release Oral Tablet *Reorder from [facility] for eRx and Interaction Alerts*Taking urea 400 MG/ML Topical Cream CUTANEOUS , Notes to Pharmacist: urea 400 MG/ML Topical CreamOriginal Medicationurea 400 MG/ML Topical Cream *Reorder from [facility] for eRx and Interaction Alerts*Medication List reviewed [...] - M79.675 4 . 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 Modifiers: Q8 * ETICIAN/SPA COORDINATOR Sign off status: Completed true * Provider: Ramirez Butler DPM Date: 11/17/2023 Generated for Santi torres/Milton/Kelton on: 0 12/27/2024 11:33 AM ESTHETICIAN/SPA COORDINATOR History and Physical Notes * HPI (History [...]
--- OUTSIDE RECORDS SUMMARY | 2024-12-27 11:33 | XMS_ITS ---
Author Organization [facility] Address [address] [place], [place] [id number] Care Team Providers Care Fancy Needleworker Name Role Phone LISA BUTLER Unavailable [phone] Janeth Viramontes Unavailable Unavailable Allergies Allergen (clinical [...] sodium 0.2 MG Oral Tablet *Reorder from [facility] for eRx and Interaction Alerts* 0 Active Medrol Dosepak ORAL Medrol DosepakOr iginal MedicationMedrol Dosepak *Reorder from [facility] for eRx and Interaction Alerts* 3 Active ciclopirox 80 MG/ML Topical Solution ciclopirox 80 MG/ML Topical SolutionOriginal Medicationciclopirox 80 MG/ML Topical Solution *Reorder from [facility] for eRx and Interaction Alerts* 7 Active clotrimazole 10 MG/ML Topical Solution CUTANEOUS clotrimazole 10 MG/ML Topical SolutionOriginal Medicationclotrimazole 10 MG/ML Topical Solution *Reorder from [facility] for eRx and Interaction Alerts* 4 Active ipratropium bromide 0.042 MG/ACTUAT Metered Dose Nasal [place] ipratropium bromide 0.042 MG/ACTUAT Metered Dose Nasal SprayOriginal Medicationipratropium bromide 0.042 MG/ACTUAT Metered Dose Nasal [place] *Reorder from [facility] for eRx and Interaction Alerts* 0 Active Lisinopril 10 MG Oral Tablet ORAL lisinopril 10 MG Oral TabletOriginal Medicationlisinopril 10 MG Oral Tablet *Reorder from [facility] for eRx and Interaction Alerts* 0 Active 12 HR ranolazine 1000 MG Extended Release Oral Tablet [Ranexa] ORAL 12 HR ranolazine 1000 MG Extended Release Oral Tablet [Ranexa]Original [id number] HR ranolazine 1000 MG Extended Release Oral Tablet [Ranexa] *Reorder from [facility] for eRx and Interaction Alerts* 6 Active amlodipine 10 MG Oral Tablet ORAL amlodipine 10 MG Oral TabletOriginal Medicationamlodipine 10 MG Oral Tablet *Reorder from [facility] for eRx and Interaction Alerts* 0 Active aspirin 81 MG Delayed Release Oral Tablet ORAL aspirin 81 MG Delayed Release Oral TabletOriginal Medicationaspirin 81 MG Delayed Release Oral Tablet *Reorder from [facility] for eRx and Interaction Alerts* 6 Active calcium carbonate 600 MG / cholecalciferol 125 UNT Oral Tablet ORAL calcium carbonate 600 MG / cholecalciferol 125 UNT Oral TabletOriginal Medicationcalcium carbonate 600 MG / cholecalciferol 125 UNT Oral Tablet *Reorder from [facility] for eRx and Interaction Alerts* 6 Active urea 400 MG/ML Topical Cream CUTANEOUS urea 400 MG/ML Topical CreamOriginal Medicationurea 400 MG/ML Topical Cream *Reorder from [facility] for eRx and Interaction Alerts* 3 Active pantoprazole 40 MG Delayed Release Oral Tablet ORAL pantoprazole 40 MG Delayed Release Oral TabletOriginal Medicationpantoprazole 40 MG Delayed Release Oral Tablet *Reorder from [facility] for eRx and Interaction Alerts* 0 Active Furosemide 40 MG Oral Tablet ORAL furosemide 40 MG Oral TabletOriginal Medicationfurosemide 40 MG Oral Tablet *Reorder from [facility] for eRx and Interaction Alerts* 0 Active Famotidine 20 MG Oral Tablet ORAL famotidine 20 MG Oral TabletOriginal Medicationfamotidine 20 MG Oral Tablet *Reorder from [facility] for eRx and Interaction Alerts* 0 Active Isosorbide Mononitrate 20 MG Oral Tablet ORAL isosorbide mononitrate 20 MG Oral TabletOriginal Medicationisosorbide mononitrate 20 MG Oral Tablet *Reorder from [facility] for eRx and Interaction Alerts* 0 Active Encounters Encounter Location Date Provider Diagnosis [facility] [address] [place] [id number] 12/17/2024 LISA KAILEYK Tinea unguium B35.1 ; Pain in right foot M79.671 ; Pain in left foot M79.672 ; Atherosclerosis of [place] arteries of extremities with intermittent claudication, bilateral [...] foot (ICD-10 - M79.672) 12/17/2024 Atherosclerosis of [place] arteries of extremities with intermittent claudication, bilateral [...] Name:LISA BUTLER, 10:30:00 AM, [address], [address], [id number], Progress Notes * FREDDIE MARTÍNEZ SDOB:[birth year] (79 yo F)Acc No.[id number]:12/17/2024 Patient: FREDDIE QUARLES Provider: Ramirez Butler DPM :1945 A ge:79 Y S ex:Female Date:12/17/2024 Address:[address] [place] [address] Subjective: * Chief Complaints: * 1 . [...] seen by Dr. Viramontes was 11/2024., Initials [facility]. * ROS: G eneral / Constitutional: [...] Medicationfurosemide 40 MG Oral Tablet *Reorder from [facility] for eRx and Interaction Alerts*, Taking Famotidine 20 MG Oral Tablet ORAL , Notes to Pharmacist: famotidine 20 MG Oral TabletOriginal Medicationfamotidine 20 MG Oral Tablet *Reorder from [facility] for eRx and Interaction Alerts*, Taking Isosorbide Mononitrate 20 MG Oral Tablet ORAL , Notes to Pharmacist: isosorbide mononitrate 20 MG Oral TabletOriginal Medicationisosorbide mononitrate 20 MG Oral Tablet *Reorder from [facility] for eRx and Interaction Alerts*, Taking Lisinopril 10 MG Oral Tablet ORAL , Notes to Pharmacist: lisinopril 10 MG Oral TabletOriginal Medicationlisinopril 10 MG Oral Tablet *Reorder from [facility] for eRx and Interaction Alerts*, Taking 12 HR ranolazine 1000 MG Extended Release Oral Tablet [Ranexa] ORAL , Notes to Pharmacist: 12 HR ranolazine 1000 MG Extended Release Oral Tablet [Ranexa]Original [id number] HR ranolazine 1000 MG Extended Release Oral Tablet [Ranexa] *Reorder from [facility] for eRx and Interaction Alerts*, Taking amlodipine 10 MG Oral Tablet ORAL , Notes to Pharmacist: amlodipine 10 MG Oral TabletOriginal Medicationamlodipine 10 MG Oral Tablet *Reorder from [facility] for eRx and Interaction Alerts*, Taking aspirin 81 MG Delayed Release Oral Tablet ORAL , Notes to Pharmacist: aspirin 81 MG Delayed Release Oral TabletOriginal Medicationaspirin 81 MG Delayed Release Oral Tablet *Reorder from [facility] for eRx and Interaction Alerts*, Taking calcium carbonate 600 MG / cholecalciferol 125 UNT Oral Tablet ORAL , Notes to Pharmacist: calcium carbonate 600 MG / cholecalciferol 125 UNT Oral TabletOriginal Medicationcalcium carbonate 600 MG / cholecalciferol 125 UNT Oral Tablet *Reorder from [facility] for eRx and Interaction Alerts*, Taking ciclopirox 80 MG/ML Topical Solution , Notes to Pharmacist: ciclopirox 80 MG/ML Topical SolutionOriginal Medicationciclopirox 80 MG/ML Topical Solution *Reorder from [facility] for eRx and Interaction Alerts*, Taking clotrimazole 10 MG/ML Topical Solution CUTANEOUS , Notes to Pharmacist: clotrimazole 10 MG/ML Topical SolutionOriginal Medicationclotrimazole 10 MG/ML Topical Solution *Reorder from [facility] for eRx and Interaction Alerts*, Taking ipratropium bromide 0.042 MG/ACTUAT Metered Dose Nasal [place] , Notes to Pharmacist: ipratropium bromide 0.042 MG/ACTUAT Metered Dose Nasal SprayOriginal Medicationipratropium bromide 0.042 MG/ACTUAT Metered Dose Nasal [place] *Reorder from [facility] for eRx and Interaction Alerts*, Taking levothyroxine sodium 0.2 MG Oral Tablet ORAL , Notes to Pharmacist: levothyroxine sodium 0.2 MG Oral TabletOriginal Medicationlevothyroxine sodium 0.2 MG Oral Tablet *Reorder from [facility] for eRx and Interaction Alerts*, Taking Medrol Dosepak ORAL , Notes to Pharmacist: Medrol DosepakOriginal MedicationMedrol Dosepak *Reorder from [facility] for eRx and Interaction Alerts*, Taking pantoprazole 40 MG Delayed Release Oral Tablet ORAL , Notes to Pharmacist: pantoprazole 40 MG Delayed Release Oral TabletOriginal Medicationpantoprazole 40 MG Delayed Release Oral Tablet *Reorder from [facility] for eRx and Interaction Alerts*, Taking urea 400 MG/ML Topical Cream CUTANEOUS , Notes to Pharmacist: urea 400 MG/ML Topical CreamOriginal Medicationurea 400 MG/ML Topical Cream *Reorder from [facility] for eRx and Interaction Alerts*, Medication [...] - M79.672 4 . A therosclerosis of [place] arteries of extremities with intermittent claudication, bilateral [...] Electronic signature of LISA BUTLER DPM on 12/27/2024 at 11:33 AM WINDOWS VMWARE ADMINISTRATOR Sign off status: Pending * Provider: Ramirez Butler DPM Date: 0 12/17/2024 Generated for Santi torres/[place] on: 0 12/27/2024 11:33 AM WINDOWS VMWARE ADMINISTRATOR History and Physical Notes * HPI (History [...]
--- OUTSIDE RECORDS SUMMARY | 2024-12-27 11:33 | XMS_ITS | Patient Health Record ---
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 of sphincter of Oddi (54599872) PLAN OF TREATMENT Pending Test Test Name Order Date Endoscopic Retrograde Cholangiopancreato graphy (ERCP) 01/21/2020 Endoscopic Retrograde Cholangiopancreato graphy (ERCP) 02/13/2020 Insurance Providers Payer Name Payer Address Payer Phone Subscriber Number Group Number Insured Name Patient Relationship to Insured Coverage Start Date Coverage End Date Medicare-M O Medicare [address] [address] [place], [place] [id number] Betzy Juarez Self - patient is the insured [facility] [address] [place], [place] [id number] AhsanShiraBetzy Self - patient is the [...]
--- OUTSIDE RECORDS SUMMARY | 2024-12-27 11:34 | XMS_ITS | Clinical Summary ---
Author Organization [facility] [address] [facility] [address] Address [address] [facility] [address] [place] [address] Care Team Providers Care Outbound Sales Consultant Name Role Phone Janeth Viramontes MD Primary Care Provider [phone] Allergies Active Allergy Reactions Criticality Noted Date [...] by mouth daily Active cholecalciferol (VITAMIN D-3) 91460 unit capsule Take 1 capsule (10,000 Units [...] (04/01/2020): Added automatically from request for surgery [id number] Palpitations 01/09/2020 Chronic fatigue 01/09/2020 Preoperative cardiovascular examination 07/04/20 19 OWENS (dyspnea on exertion) 04/20/2018 Orthostatic hypotension 10/19/2016 Overview (02/18/2017): Orthostatic hypotension 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..] Department Care Team Description 10/09/2024 1:45 PM PRESCHOOL TEACHER'S ASSISTANT Office Visit [facility]iology [address] [place] [address] Umesh Telles MD Coronary arteriosclerosis in [place] artery (Primary Dx); OWENS (dyspnea on exertion); Mixed hyperlipidemia; JULISSA on CPAP; Primary hypertension 10/09/2024 Orders Only [facility] Cardiology [address] [place] [address] ProviderMelanie MD 10/09/2024 Telephone [facility] Cardiology [address] [place] [phone] Umesh Telles MD Med Refill from Last [...] Underwood Hypertension Brother Ji Underwood COPD Father Taey Underwood Cancer Father Taye Underwood Heart failure [...] on file Legal Sex Female 3:37 PM PRESCHOOL TEACHER'S ASSISTANT Gender Identity Female 05/06/2020 3:45 PM CDT Sexual Orientation Straight 01/31/2020 9: 43 AM CDT Obstetrics History Last Filed Vital Signs Vital Sign Reading Time Taken Comments Blood Pressure 130/62 10/09/2024 1:45 PM PRESCHOOL TEACHER'S ASSISTANT Pulse 67 10/09/2024 1:45 PM PRESCHOOL TEACHER'S ASSISTANT Temperature 36.8 C (98.3 F) 04/02/2020 12:00 PM CDT Respiratory Rate 16 11/10/2021 9:02 AM PRESCHOOL TEACHER'S ASSISTANT Oxygen Saturation 96% 10/09/2024 1:45 PM PRESCHOOL TEACHER'S ASSISTANT Inhaled Oxygen Concentration - - Weight 96.6 kg (213 lb) 10/09/2024 1:45 PM PRESCHOOL TEACHER'S ASSISTANT Height 167.6 cm (5' 6 ) 10/09/2024 1:45 PM PRESCHOOL TEACHER'S ASSISTANT Body Mass Index 34.38 10/09/2024 1:45 PM PRESCHOOL TEACHER'S ASSISTANT Plan of Treatment Health Maintenance Due Date [...] history exists Medical Devices Explanted Type Area Quill Winder Device Identifier Shelf Expiration Date Model / Serial / Lot [employer] 6571 Chris Flexi-Stent 7fr 3cm Small Pigtail Flexible .035in Stent - [id number] Implanted:Qty : 1 on 03/31/2020 by Ricky Jeter MD at [facility] Explanted:Qty : 1 on 04/02/2020 by Ricky Jeter MD at [facility] Stent N/A: Pancreas [employer] 09/13/2024 [id number] / / [id number] Conmed Purnima [id number] [place] Viabil 10mm 8.5fr 6cm 200cm Fully Covered Self Expand Pull - [id number] - [id number] Implanted:Qty : 1 on 03/31/2020 by Ricky Jeter MD at [facility] Explanted:Qty : 1 on 04/02/2020 by Ricky Jeter MD at [facility] Stent N/A: Bile Duct Conmed Purnima 12/20/2022 [id number] / [id number] / Insurance MEDICARE MEDICARE REPLACED BY [facility] MEDICARE BLUE CROSS MEDICARE SUPPLEMENT Advance Directives For more information, please contact: [phone] * Full Code (Latest Code Status on File) Date Activated Date Inactivated Comments 03/31/2020 8:47 AM 04/02/2020 5:04 PM Care Teams Outbound Sales Consultant Relationship Specialty Start Date End Date Janeth Viramontes MD [address] [place] [address] PCP - General 09/16/11
--- OUTSIDE RECORDS SUMMARY | 2024-12-27 11:34 | XMS_ITS | Referral Summary ---
Author Organization [facility] [address] [place] [address] Care Team Providers Care Repairer Screen Crusher Name Role Phone Janeth Viramontes MD Primary Care Provider [phone] Encounters Date Type Department Care Team Description 10/09/2024 Orders Only [facility] Medical [facility] Cardiology [address] [place] [address] [address] [place] [address] ProviderMelanie MD 10/09/2024 Telephone [facility] Cardiology [address] [place] [address] [address] [place] [address] Umesh Telles MD Med Refill 10/09/2024 1:45 PM ASSISTANT FRONT DESK MANAGER Office Visit [facility] Cardiology [address] [place] [address] [address] [place] [address] Umesh Telles MD Coronary arteriosclerosis in [place] artery (Primary Dx); OWENS (dyspnea on exertion); [...] by mouth daily Active cholecalciferol (VITAMIN D-3) 79068 unit capsule Take 1 capsule (10,000 Units [...] (04/01/2020): Added automatically from request for surgery [id number] Palpitations 01/09/2020 Chronic fatigue 01/09/2020 Preoperative cardiovascular examination 07/04/20 19 OWENS (dyspnea on exertion) 04/20/2018 Orthostatic hypotension 10/19/2016 Overview (02/18/2017): Orthostatic hypotension 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 (02/18/2017): Coronary vasospasm Thoracic back pain 12/29/2015 Overview (02/18/2017): Thoracic back pain, unspecified back pain laterality Coronary arteriosclerosis in [place] artery 11/04 Overview (02/18/2017): Coronary artery disease involving [place] coronary artery of [place] heart with other form of angina pectoris Left ventricular dilatation 11/04/2015 Overview (02/18/2017): LVE (left ventricular enlargement) Coronary artery disease invo lving [place] coronary artery of [place] heart with angina pectoris with documented spasm [...] on file Legal Sex Female 3:37 PM ASSISTANT FRONT DESK MANAGER Gender Identity Female 05/06/2020 3:45 PM CDT Sexual Orientation Straight 01/31/2020 9: 43 AM CDT Last Filed Vital Signs Vital Sign Reading Time Taken Comments Blood Pressure 130/62 10/09/2024 1:45 PM ASSISTANT FRONT DESK MANAGER Pulse 67 10/09/2024 1:45 PM ASSISTANT FRONT DESK MANAGER Temperature 36.8 C (98.3 F) 04/02/2020 12:00 PM CDT Respiratory Rate 16 11/10/2021 9:02 AM ASSISTANT FRONT DESK MANAGER Oxygen Saturation 96% 10/09/2024 1:45 PM ASSISTANT FRONT DESK MANAGER Inhaled Oxygen Concentration - - Weight 96.6 kg (213 lb) 10/09/2024 1:45 PM ASSISTANT FRONT DESK MANAGER Height 167.6 cm (5' 6 ) 10/09/2024 1:45 PM ASSISTANT FRONT DESK MANAGER Body Mass Index 34.38 10/09/2024 1:45 PM ASSISTANT FRONT DESK MANAGER Plan of Treatment Not on file Medical Devices Explanted Type Area Violin Maker Hand Device Identifier Shelf Expiration Date Model / Serial / Lot [employer] 6571 Chris Flexi-Stent 7fr 3cm Small Pigtail Flexible .035in Stent - [id number] Implanted:Qty : 1 on 03/31/2020 by Ricky Jeter MD at [facility] Explanted:Qty : 1 on 04/02/2020 by Ricky Jeter MD at [facility] Stent N/A: Pancreas [employer] 09/13/2024 6571 / / [id number] Conmed Purnima [id number] [place] Viabil 10mm 8.5fr 6cm 200cm Fully Covered Self Expand Pull - [id number] - [id number] Implanted:Qty : 1 on 03/31/2020 by Ricky Jeter MD at [facility] Explanted:Qty : 1 on 04/02/2020 by Ricky Jeter MD at [facility] Stent N/A: Bile Duct Conmed Purnima 12/20/2022 [id number] / [id number] / Insurance MEDICARE MEDICARE [facility] MEDICARE BLUE CROSS MEDICARE SUPPLEMENT Advance Directives For more information, please contact: [phone] * Full Code (Latest Code Status on File) Date Activated Date Inactivated Comments 03/31/2020 8:47 AM 04/02/2020 5:04 PM Care Teams Repairer Screen Crusher Relationship Specialty Start Date End Date Janeth Viramontes MD [address] [place], [place] [id number] PCP - General 09/16/11
--- OUTSIDE RECORDS SUMMARY | 2024-12-27 11:34 | XMS_ITS | Patient Health Record ---
Author Organization [facility] Address [address] [place], [place] [id number] Care Team Providers Care Solution Maker Name Role Phone LISA BUTLER Unavailable [phone] Janeth Viramontes Unavailable Unavailable Allergies Allergen (clinical drug ingredient) Drug/Non Drug Allergy documented on EMR Reaction Allergy Type Onset Date Status cefadroxil Duricef (uncoded) Unknown Allergy 09/04/2012 active Bactroban Unknown Drug Allergy 12/13/2014 active Latex Latex Unknown Allergy 12/16/2014 active Reason For Referral No Information Medications Medication SIG (Take, Route, Frequency, Duration) Notes Start Date End Date Status Lisinopril 10 MG Oral Tablet ORAL lisinopril 10 MG Oral TabletOriginal Medicationlisinopril 10 MG Oral Tablet *Reorder from [facility] for eRx and Interaction Alerts* 0 Active urea 400 MG/ML Topical Cream CUTANEOUS urea 400 MG/ML Topical CreamOriginal Medicationurea 400 MG/ML Topical Cream *Reorder from [facility] for eRx and Interaction Alerts* 3 Active 12 HR ranolazine 1000 MG Extended Release Oral Tablet [Ranexa] ORAL 12 HR ranolazine 1000 MG Extended Release Oral Tablet [Ranexa]Original [id number] HR ranolazine 1000 MG Extended Release Oral Tablet [Ranexa] *Reorder from [facility] for eRx and Interaction Alerts* 6 Active amlodipine 10 MG Oral Tablet ORAL amlodipine 10 MG Oral TabletOriginal Medicationamlodipine 10 MG Oral Tablet *Reorder from [facility] for eRx and Interaction Alerts* 0 Active aspirin 81 MG Delayed Release Oral Tablet ORAL aspirin 81 MG Delayed Release Oral TabletOriginal Medicationaspirin 81 MG Delayed Release Oral Tablet *Reorder from [facility] for eRx and Interaction Alerts* 6 Active pantoprazole 40 MG Delayed Release Oral Tablet ORAL pantoprazole 40 MG Delayed Release Oral TabletOriginal Medicationpantoprazole 40 MG Delayed Release Oral Tablet *Reorder from [facility] for eRx and Interaction Alerts* 0 Active Furosemide 40 MG Oral Tablet ORAL furosemide 40 MG Oral TabletOriginal Medicationfurosemide 40 MG Oral Tablet *Reorder from [facility] for eRx and Interaction Alerts* 0 Active levothyroxine sodium 0.2 MG Oral Tablet ORAL levothyroxine sodium 0.2 MG Oral TabletOriginal Medicationlevothyroxine sodium 0.2 MG Oral Tablet *Reorder from [facility] for eRx and Interaction Alerts* 0 Active Famotidine 20 MG Oral Tablet ORAL famotidine 20 MG Oral TabletOriginal Medicationfamotidine 20 MG Oral Tablet *Reorder from [facility] for eRx and Interaction Alerts* 0 Active Medrol Dosepak ORAL Medrol DosepakOr iginal MedicationMedrol Dosepak *Reorder from [facility] for eRx and Interaction Alerts* 3 Active Isosorbide Mononitrate 20 MG Oral Tablet ORAL isosorbide mononitrate 20 MG Oral TabletOriginal Medicationisosorbide mononitrate 20 MG Oral Tablet *Reorder from [facility] for eRx and Interaction Alerts* 0 Active calcium carbonate 600 MG / cholecalciferol 125 UNT Oral Tablet ORAL calcium carbonate 600 MG / cholecalciferol 125 UNT Oral TabletOriginal Medicationcalcium carbonate 600 MG / cholecalciferol 125 UNT Oral Tablet *Reorder from [facility] for eRx and Interaction Alerts* 6 Active ciclopirox 80 MG/ML Topical Solution ciclopirox 80 MG/ML Topical SolutionOriginal Medicationciclopirox 80 MG/ML Topical Solution *Reorder from [facility] for eRx and Interaction Alerts* 7 Active clotrimazole 10 MG/ML Topical Solution CUTANEOUS clotrimazole 10 MG/ML Topical SolutionOriginal Medicationclotrimazole 10 MG/ML Topical Solution *Reorder from [facility] for eRx and Interaction Alerts* 4 Active ipratropium bromide 0.042 MG/ACTUAT Metered Dose Nasal [place] ipratropium bromide 0.042 MG/ACTUAT Metered Dose Nasal SprayOriginal Medicationipratropium bromide 0.042 MG/ACTUAT Metered Dose Nasal [place] *Reorder from [facility] for eRx and Interaction Alerts* 0 Active Immunizations Vaccine Route Administration Date Status Comme nts Influenza, high dose seasonal Unknown 09/09/2023 Admini stered Vital Signs Height-cm 172.72 cm 03/26/2024 Weight-kg 83.91 kg 03/26/2024 Height 68.00 in 03/26/2024 Weight 185 lbs 03/26/2024 BMI 28.13 kg/m2 03/26/2024 Encounters Encounter Location Date Provider Diagnosis [facility] [address] [place] [id number] 12/17/2024 LISA SNOOK Tinea unguium B35.1 ; Pain in right foot M79.671 ; Pain in left foot M79.672 ; Atherosclerosis of qagan [place] arteries of extremities with intermittent claudication, bilateral legs I70.213 and Acquired keratosis [keratoderma] palmaris et plantaris L85.1 [facility] [address] [place] [address] [id number] 01/09/2024 LISA SNOOK Tinea unguium B35.1 ; Pain in right toe(s) M79.674 ; Pain in left toe(s) M79.675 ; Atherosclerosis of qagan [place] arteries of extremities with intermittent claudication, bilateral legs I70.213 and Acquired keratosis [keratoderma] palmaris et plantaris L85.1 [facility] [address] [place] [address] [id number] 03/26/2024 LISA SNOOK Tinea unguium B35.1 ; Pain in right toe(s) M79.674 ; Pain in left toe(s) M79.675 and Atherosclerosis of qagan [place] arteries of extremities with intermittent claudication, bilateral legs I70.213 [facility] [address] [place] [address] [id number] 06/25/2024 LISA SNOOK Tinea unguium B35.1 ; Pain in right foot M79.671 ; Pain in left foot M79.672 ; Atherosclerosis of qagan tayagung[place] arteries of extremities with intermittent claudication, bilateral legs I70.213 and Acquired keratosis [keratoderma] palmaris et plantaris L85.1 [facility] [address] [place], [place] [id number] 09/17/2024 LISA SNOOK Tinea unguium B35.1 ; Pain in right toe(s) M79.674 ; Pain in left toe(s) M79.675 and Atherosclerosis of qagan tayagung[place] arteries of extremities with intermittent claudication, bilateral legs I70.213 Assessments Encounter Date Diagnosis (ICD Code) Assessment Notes Treatment Notes Treatment Clinical Notes Section Notes 01/09/2024 Tinea unguium (ICD-10 - B35.1) FUNGAL TOENAILS: Discussed various treatment options for fungal toenails including debridement, topical antifungals, oral antifungals, toenail avulsion, or toenail matrixectomy. NAIL DEBRIDEMENT: Nails 1-5 Bilateral were debrided extensively with nail nippers and emery board, reducing length and girth to pink healthy tissue with any subungual debris and necrotic tissue removed 01/09/2024 Pain in right toe(s) (ICD-10 - M79.674) 03/26/2024 Tinea unguium (ICD-10 - B35.1) FUNGAL TOENAILS: Discussed various treatment options for fungal toenails including debridement, topical antifungals, oral antifungals, toenail avulsion, or toenail matrixectomy. NAIL DEBRIDEMENT: Nails 1-5 Bilateral were debrided extensively with nail nippers and emery board, reducing length and girth to pink healthy tissue with any subungual debris and necrotic tissue removed 03/26/2024 Pain in right toe(s) (ICD-10 - M79.674) 06/25/2024 Tinea unguium (ICD-10 - B35.1) Nails 1-5 Bilateral were debrided extensively with nail nippers and emery board, reducing length and girth to pink healthy tissue with any subungual debris and necrotic tissue removed 06/25/2024 Pain in right foot (ICD-10 - M79.671) 09/17/2024 Tinea unguium (ICD-10 - B35.1) FUNGAL [...] Pain in right toe(s) (ICD-10 - M79.674) 12/17/2024 Tinea unguium (ICD-10 - B35.1) Nails 1-5 Bilateral were debrided extensively with nail nippers and emery board, reducing length and girth to pink healthy tissue with any subungual debris and necrotic tissue removed 12/17/2024 Pain in right foot (ICD-10 - M79.671) 12/17/2024 Pain in left foot (ICD-10 - M79.672) 09/17/2024 Pain in left toe(s) (ICD-10 - M79.675) 06/25/2024 Pain in left foot (ICD-10 - M79.672) 03/26/2024 Pain in left toe(s) (ICD-10 - M79.675) 01/09/2024 Pain in left toe(s) (ICD-10 - M79.675) 01/09/2024 Atherosclerosis of qagan tayagung[place] arteries of extremities with intermittent claudication, bilateral legs (ICD-10 - I70.213) 03/26/2024 Atherosclerosis of qagan tayagung[place] arteries of extremities with intermittent claudication, bilateral legs (ICD-10 - I70.213) 06/25/2024 Atherosclerosis of qagan tayagung[place] arteries of extremities with intermittent claudication, bilateral legs (ICD-10 - I70.213) 09/17/2024 Atherosclerosis of qagan tayagungin arteries of extremities with intermittent claudication, bilateral legs (ICD-10 - I70.213) 12/17/2024 Atherosclerosis of qagan tayagung[place] arteries of extremities with intermittent claudication, bilateral legs (ICD-10 - I70.213) 12/17/2024 Acquired keratosis [keratoderma] palmaris et plantaris (ICD-10 - L85.1) A total of 2 corns or calluses, as described in the note above, were cut and pared utilizing a #15 blade 06/25/2024 Acquired keratosis [keratoderma] palmaris et plantaris (ICD-10 - L85.1) A total of 2 corns or calluses, as described in the note above, were cut and pared utilizing a #15 blade 01/09/2024 Acquired keratosis [keratoderma] palmaris et plantaris (ICD-10 - L85.1) Hyperkeratosis: The skin was prepped with isopropyl alcohol. Using a 15-blade scalpel, the hyperkeratotic skin lesions were sharply debrided down to healthy appearing skin. A total of 2 corns or calluses, as described in the note above, were cut and pared utilizing a #15 blade Plan Of Treatment Next Appt Details Provider Name:LISA BUTLER, 10:30:00 AM, [address], [facility], [place], [place], [id number], Insurance Providers Payer Name Payer Address Payer Phone Subscriber Number Group Number Insured Name Patient Relationship to Insured Coverage Start Date Coverage End Date Medicare Part B [place] [address] [place] [phone] [id number] FREDDIE MARTÍNEZ Self - patient is the insured [facility] ([facility]) ATTN CLAIMS [address] [place] [address] [id number] FREDDIE MARTÍNEZ Self - patient is the insured
[2024-12-27 12:22] LABS: Anion Gap 7 mmol/L (4-12); Blood Urea Nitrogen 17 mg/dL (7-18); Calcium 9.2 mg/dL (8.5-10.1); Carbon Dioxide 34 mmol/L (21-32); Chloride 93 mmol/L (98-108); Estimated Glomerular Filt Rate 58; Glucose 91 mg/dL (70-99); Osmolality Calculated 279 mOsm/kg (285-295); Potassium 4.7 mmol/L (3.5-5.1); Sodium 134 mmol/L (136-145)
== END 2024-12-27 11:25 | disposition home or self-care (01) ==
PROVIDERS: PCP Internal Medicine; Visit Provider Internal Medicine
DX: E86.0 Dehydration (principal)
CPT/HCPCS: 36415; 80048

== ENCOUNTER 2025-01-21 01:18 | Day surgery (SDC) | payer MEDICARE, SELFPAY ==
[2024-12-07 15:41] VITALS: BMI 35.9
--- NOTE | 2024-12-07 15:54 | PC.NURSE ---
Addendum entered by Keerthi Jeffers RN 01/04/25 11:09: Pt reminded also to Hold all vitamins and supplements for __3____ days prior to surgery, per Anesthesia. Her Date to take the last dose is 01/17/25, JRRN Addendum entered by Keerthi Jeffers RN 01/04/25 11:06: Called pt, she was rescheduled for 01/21/25 at 0730, due to being sick preop last date with sinus infection and got dx with Asthma, did steroids and inhaler and antibiotics, better now. Pt is aware NPO after MN- no food , Clear liquid till 0430am on 01/21/25. Take only the following medications with a SIP of water on the morning of surgery: ___Gabapentin, Isosorbide, Levothyroxine, Metoprolol, Paroxetine,and Inhaler. Pt states Dr Cantor told her to cont ASA daily does not need to hold preop. See rest below, pt questions answered, will see her in two weeks for OR/Surgery. NO other changes in status or meds, reconciled HX and meds/allergies JRRN Original Note: Report to the Outpatient Waiting Room, entrance under the green pavilion located off [facility], at time __10:00am on date __12/20/24 . Planned Procedure Time: _12:00pm .? Time changes happen often and if your time is changed the preop area will call you the afternoon before. - You and your visitor will be asked to self-screen and do not enter if you have any COVID symptoms. Please call surgeon if you need to reschedule. - A mask is optional within the hospital at this time. Patients may have clear liquids (water, carbonated beverages, clear teas, apple juice) until 3 hours prior to surgery with a maximum of 20 ounces. - No food from midnight until time of surgery and no smoking. This includes no chewing gum, candy or mints. (0900am) Take only the following medications with a SIP of water on the morning of surgery: ___Gabapentin, Isosorbide, Levothyroxine, Metoprolol, Paroxetine, DO NOT STOP ANY OF YOUR OTHER PRESCRIPTION MEDICATIONS PRIOR TO SURGERY EXCEPT THE FOLLOWING Medications to discontinue per physician ____Check w Dr Cantor about the Aspirin Date to take last dose___per Dr Cantor Please no make-up, nail sinhala, hairspray, perfume, deodorant, or body powder the day of surgery.? No jewelry (including any body piercings) or valuables the day of surgery, leave them at home.? Please take a shower or bath the night before, or the morning of, surgery with an antibacterial soap.? Wear comfortable, loose fitting clothing.? - Jewelry must be removed prior to entering the operating room.? Rings and piercings that are not removed may be cut off. - The hospital will not accept responsibility for valuables.? - Please leave all valuables, including medications, at home the day of surgery. If you are going home after surgery, a licensed crew truck driver must drive you home.? - NO public transportation without another adult if you receive anesthesia. - We recommend that an adult stay with you for 24 hours following discharge. - We also recommend that you do not drive, make important decision, drink alcoholic beverages, or take any drugs that were not prescribed by your health care provider for at least 24 hours after your discharge time. Hold all vitamins and supplements for __3____ days per __Anethesia Date to take the last dose is 12/16/24 . Follow any additional instructions given to you from your surgeon. Telephone instructions given to __Patient and asked if any additional questions and then verbalized understanding. Patient advised to call surgeon office or pre surgery nurse liaison [phone] if any additional questions.
--- NOTE | 2025-01-18 10:36 | P.HP_ITS ---
H&P: HPI History of Present Illness Date/Time: 01/18/25 10:36 Chief Complaint: Left carpal tunnel syndrome and left long and ring trigger fingers Narrative: 79-year-old female who presents today for left carpal tunnel release as well as A1 ben release of her left long and ring fingers. Patient has been having numbness and tingling in the left hand since late last year. She has some degree of constant numbness in the thumb and the index finger. EMG study from June 2024 showed moderate carpal tunnel syndrome. Patient has been treating this nonsurgically since then. Symptoms are progressively worsening and she is getting numbness in the radial 4 fingers regular basis through the day. She also has been having catching of her 3rd and 4th finger. She has had 1 cortisone injection in these fingers in the past which did help for a short time but she has had recurrence. At this point patient is having symptoms of numbness in the left hand as well as triggering of the 3rd 4th finger on a daily basis. She feels she is ready proceed with carpal tunnel release as well as A1 ben release of the 3rd 4th finger at this point. Review of Systems 2 Review of Systems: All systems reviewed & are unremarkable except as noted in HPI and below PMFSH Past Medical History Medical History (Updated 01/07/25 @ 10:19 by Rosi Mendez MD) Dermatitis of ear canal Hearing loss, left Neuropathy Arthritis Wears glasses Hypothyroidism Anxiety Congestive heart failure the patient stated that she was diagnosed with CHF but he did not see any diagnosis under cardiology note. She is on diuretics. Angina pectoris High cholesterol GERD (gastroesophageal reflux disease) HTN (hypertension) Thyroid disease Surgical History Surgical History H/O hand surgery 10/2024 Right hand History of bladder surgery S/P colonoscopic polypectomy S/P total knee arthroplasty right total knee arthroplasty today by Dr. Pritchard 12/15/2020 History of cataract surgery H/O colonoscopy Hx laparoscopic cholecystectomy History of ERCP x3. She had stents placed which were subsequently removed in some type of the duct. Not sure if it is a common bile duct pancreatic duct or the liver. H/O total hysterectomy History of back surgery History of total knee replacement Left total knee arthroplasty Family History Family History Father COPD (chronic obstructive pulmonary disease) Heart disease Malignant neoplasm of prostate Hypertension Mother Heart disease Alzheimer's dementia Acute myocardial infarction Hypertension Other Diabetes mellitus Cancer Cerebrovascular accident Sibling Heart disease Unknown Diabetes mellitus Heart disease Cancer Cerebrovascular accident Hypertension Kidney disease Other Arthritis High cholesterol Social History Social History (Updated 01/07/25 @ 09:28 by Janeen Maria) Social History: the patient lives with her . The and her daughter are both durable power erisa attorney for healthcare. The patient is a full code. 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 The patient has 2 children 1 son and 1 daughter. The patient is a lifelong nonsmoker. It may be has 3 drinks of alcohol per year. Caffeine- coffee Smoking status: Never smoker Second hand tobacco smoke exposure: Yes Alcohol intake: current Alcohol use details: wine yearly Substance use: current Substance use type: marijuana Other substance usage details: 2 gummies at night for leg cramps Last use: 08/15/24 Current Housing: Decline to Answer Concerned About Future Housing: Decline to Answer Difficulty Paying Gas/Electric Bills: Decline to Answer Difficulty Paying for Meds: Decline to Answer Currently Unemployed: Decline to Answer Education: Decline to Answer Difficulty w/ Childcare or Family Care: Decline to Answer Living arrangements: with family Additional living arrangements comments: Occupation/Education: retired 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[employer] [facility] Gender identity (if verbalized by the patient): Female Spiritual care concerns: No Meds Home Medications and Allergies Home Medications ?Medication ?Instructions ?Recorded ?Confirmed ?Type famotidine 20 mg tablet 20 mg PO DAILY 10/26/19 01/07/25 History fluticasone propionate 50 2 inhalation inhalation HS PRN 10/26/19 01/07/25 History mcg/actuation blister powder for Congestion inhalation furosemide 40 mg tablet 60 mg PO QAM 10/26/19 01/07/25 History ipratropium bromide 42 mcg (0.06 2 spray intranasal BID PRN 10/26/19 01/07/25 History %) nasal spray Congestion levothyroxine 200 mcg tablet 200 mcg PO QAM 10/26/19 01/07/25 History pantoprazole 40 mg tablet,delayed 40 mg PO QAM 10/26/19 01/07/25 History release paroxetine HCl 20 mg tablet 40 mg PO QAM 10/26/19 01/07/25 History pravastatin 40 mg tablet 40 mg PO HS 10/26/19 01/07/25 History (Pravachol) cyanocobalamin (vitamin B-12) 500 500 mcg PO DAILY 12/05/20 01/07/25 History mcg lozenges (Vitamin B-12) isosorbide mononitrate 30 mg 90 mg PO QAM 12/05/20 01/07/25 History tablet,extended release 24 hr flaxseed oil 1,000 mg capsule 1,000 mg PO BID 03/25/21 01/07/25 History metoprolol tartrate 25 mg tablet 25 mg PO BID 03/25/21 01/07/25 History vit C 250 mg-vit E 200 unit-zinc 1 tablet PO BID 03/25/21 01/07/25 History 12.5 mg-copper 1 fo-fip-dstepb tablet (ICaps AREDS2 (copper citrate)) losartan 100 mg tablet 100 mg PO DAILY 04/05/23 01/07/25 History gabapentin 100 mg capsule 100 mg PO TID 06/27/24 01/07/25 History latanoprost 0.005 % eye drops 1 drp LEFT EYE HS 08/16/24 01/07/25 History potassium chloride 10 mEq 10 meq PO DAILY 08/17/24 01/07/25 History tablet,extended release acetaminophen 500 mg tablet 1,000 mg PO HS 09/27/24 01/07/25 History aspirin 81 mg chewable tablet 1 tablet PO DAILY 09/27/24 01/07/25 History zoledronic acid 5 mg/100 mL in 1 ea IV .Yearly 12/07/24 01/07/25 History mannitol 5 %-water intravenous piggybck (Reclast) hydrochlorothiazide 25 mg tablet 12.5 mg PO DAILY 12/31/24 01/07/25 History budesonide-formoterol HFA 80 1 inh inhalation QID asthma 01/04/25 01/07/25 History mcg-4.5 mcg/actuation aerosol inhaler (Symbicort) Allergies Allergy/AdvReac Type Severity Reaction Status Date / Time bacitracin Allergy Intermediate RASH Verified 01/07/25 09:26 adhesive tape Allergy Mild rash Verified 01/07/25 09:26 latex Allergy Mild RASH WITH Verified 01/07/25 09:26 BLISTERS neomycin (From Neosporin AdvReac Mild redness/irr Verified 01/07/25 09:26 ([id number])) itation polymyxin B (From Neosporin AdvReac Mild redness/irr Verified 01/07/25 09:26 ([id number])) iation Exam Narrative: 79-year-old female very alert pleasant. She has a positive Tinel's over the median nerve in left hand which causes her tingling that radiates up the volar forearm. Positive carpal tunnel compression test. Two-point discrimination is greater than 8/greater than 8, 5/5, 5/6, 6/5, and 5/5. 2+ radial artery pulse palpable. There is no swelling in the wrist hand or fingers. She does have full range of motion of the fingers. She has prominent triggering of the left 3rd and 4th finger. Moderate tenderness over the A1 ben in both these fingers. Resp: Auscultation: clear to auscultation bilaterally Cardio: Rate: regular rate Rhythm: regular rhythm Assessment and Plan Assessment and plan (1) Trigger finger, left middle finger: Code(s): M65.332 - Trigger finger, left middle finger Status: Acute (2) Trigger finger, left ring finger: Code(s): M65.342 - Trigger finger, left ring finger Status: Acute (3) Left carpal tunnel syndrome: Code(s): G56.02 - Carpal tunnel syndrome, left upper limb Status: Acute Plan 79-year-old female who has left carpal tunnel syndrome and also left 3rd and 4th trigger fingers. This point patient feels she would rather proceed with surgery on these 3 areas rather than continue nonsurgical treatment. Surgical procedures well as risks and complications were discussed in detail questions were answered we will proceed. She will avoid any aspirin ibuprofen products 1 week prior to surgery
[2025-01-21] VITALS (9 sets, daily range): BP systolic 139–169; BP diastolic 56–76; PULSE 67–75; RESP 12–22; TEMP 36.1–36.6; O2SAT 96–100
--- OUTSIDE RECORDS SUMMARY | 2025-01-21 01:23 | XMS_ITS | Data Portability ---
Author Organization [place] - [facility], Main Office Address [address] [place] [address] Care Team Providers Care Medical Numerical Control Operator Name Role Phone RUBENS MONTOYA Primary Care Provider RUBENS MONTOYA Referring Provider Assessment Encounter Date [...] more than half the time spent in aovf-pq-njwb care. Not available 03/16/2023 10:23:27 04/07/2023 04/07/2023 [...] recommended that she take Citracal +D to [place] tablets a day in the time being. [...] than half of this time spent in aqgr-zd-gjxr care. Not available 04/07/2023 19:53:25 04/22/2023 04/22/2023 [...] patient more than half of this in ftck-rp-cpyx conversation Not available 04/22/2023 13:40:48 05/11/2023 05/11/2023 [...] patient more than half of this in ktob-sd-ihkw conversation Not available 05/11/2023 10:09:34 06/03/2023 06/03/2023 [...] patient more than half of this in oidn-rs-jdtr conversation Not available 06/03/2023 11:06:01 Plan of Treatment Reminders Order Date Submit Date Provider Last Modified By Organization Details Last Modified Time Details Appointments None recorded. Lab None recorded. Referral physical therapist referral - see attached order- please schedule pt 2022 023 [email or web address] [facility], [address] [place], [address], 3 14:21:10 Procedures injection/a spiration joint/bursa (PROC) - in office procedure, administere d by provider 2022 023 [email or web address] In-Office Order, Internal Use Only DO Not Attach Compendium DO Not Attach Compendium, Do Not Delete/merge, [id number] 09:57:30 Surgeries None recorded. Imaging XR, shoulder 2022 023 [facility] [place], [address], [place], [address], 3 11:30:58 XR, shoulder 2022 023 [facility] [place], [address], [place], [address], 3 13:10:33 XR, elbow 2022 023 [email or web address] [facility] [place], [address], [place], [address], 3 13:52:51 XR, shoulder 2022 023 [facility] [place], [address], [place], [address], 3 12:30:32 XR, wrist 2022 023 [email or web address] [facility] [place], [address], [place], [address], 3 13:52:51 Medication Orders Kenalog 10 mg/mL suspension for injection 2022 023 [facility], [address] [place], [address], 3 13:10:33 ropivacaine (PF) 5 mg/mL (0.5 %) injection solution 2022 023 [facility], [address] [place], [address], 13:10:33 Patient TargetsNo targets recorded. Patient InstructionsNo [...] No observ ation record ed. [facility] [place] [address], [place], [address], 04/22/2023 13:39:16 04/22/20 XR, wrist No observ ation record ed. [facility] [place] [address], [place], [address], 04/22/2023 13:38:39 06/09/20 23 XR, elbow No observ ation record ed. [facility] [place] [address], [address], 04/22/2023 13:38:16 05/11/20 23 XR, shoul janet No observ ation record ed. [facility] [place] [address], [address], 05/11/2023 10:06:48 06/03/20 23 XR, shoul janet No observ ation record ed. [facility] [place] [address], [address], 06/03/2023 11:03:45 Result Notes None recorded. Problems Name Problem SNOMED Code Status Onset Date Resolution Date Notes Provider Name and Address Organization Details Recorded Time History of total knee arthroplas ty 3551438990787 Active 2021 Not Available [facility] 3 00:55:20 Pain of left shoulder joint 5423518739167 9109 Active 2021 Not Available [facility] 3 00:55:20 Stable angina 590865583 Active 2018 Not Available [facility] 3 00:55:20 Enthesopat hy of hip region 89571413 Active Not Available [facility] 3 00:55:20 Osteoarthr itis of left knee joint 5358539617326 09 Active 2018 Not Available [facility] 3 00:55:20 Osteoarthr itis 562829530 Active Not Available [facility] 3 00:55:20 Pain of left hip joint 6250544654902 00 Active 2022 FREDERICK Mobley, [facility] 3 10:18:52 Pain of right shoulder joint 4612762504648 9100 Active 2022 FR[facility]ERICK Mobley, [place] [facility] 3 10:19:32 Partial thickness rotator cuff tear 183343849 Active 2022 Karlie Randall RMA null, [facility] 3 09:54:19 Vitamin D deficiency 02472708 Active 2022 Nava Garcia TYPING TEACHER null, [facility] 3 13:32:39 Closed fracture of upper end of humerus 92693398 Active 2022 Karlie Randall RMA null, [facility] 3 12:06:45 Pain of left elbow joint 9569948838435 9104 Active 2022 Karlie Randall RMA null, [facility] 3 12:07:11 Pain of left wrist 7307266819411 02 Active 2022 Karlie Randall RMA null, [facility] 3 12:53:17 Problem Notes None recorded. Procedures Surgical History None recorded. Imaging Results Imaging Date Name Status [facility] by [facility] Details LastModified Time 04/05/2023 XR, shoulder, 2 or more view completed Information not available 04/07/2023 10:41:26 04/05/2023 XR, elbow, 3 or more view completed Information not available 04/07/2023 10:41:26 04/05/2023 XR, wrist, 3 or more view completed Information not available 04/07/2023 10:41:26 03/11/2022 bone density completed [email or web address] Information not available 04/08/2023 15:33:55 04/22/2023 XR, shoulder completed [facility] [place] [address], [place], [address], 04/22/2023 13:39:16 04/22/2023 XR, wrist completed [facility] [place] [address], [place], [address], 04/22/2023 13:38:39 04/22/2023 XR, elbow completed [facility] [place] [address], [place], [address], 04/22/2023 13:38:16 05/11/2023 XR, shoulder completed [facility] [place] [address], [place], [address], 05/11/2023 10:06:48 06/03/2023 XR, shoulder completed [facility] [place] [address], [place], [address], 06/03/2023 11:03:45 Procedure Notes None recorded. Medical Equipment None Reported. Allergies Allergen ID Allergen Name Allergen Category Reaction Reaction Severity Criticality Documentation Date Start Date Code Code System Note Provider Name and Address Organization Details Recorded Time 1368 latex environme nt,medica tion rash Not available Not available 01/12/2023 85111 91 RxNorm BLIST ERS Not Available [facility] 3 01:02:40 1369 bacitraci n medicatio n Not available Not available Not available 01/12/20232018 1291 RxNorm cause d infec teed 2nd degre e no rash or sob Not Available [facility] 3 01:02:40 Medications Name Sig Start Date [...] suspension for injection in office 2022 active [facility]: 0003- 0494- 20 Not Available Not [...] administe red by the provider 06/12 completed [facility]: 0409- 4276- 17 Not Available Not [...] %) injection solution in office 2022 active [facility] 89572 -064- 01 Not Available Not Available Not [...] Updated DateTime 03/16/2023 162.56 cm Karlie Randall [facility] [place] [facility] 03/16/2023 09:52:09 Date Recorded Body height Provider Name an d Address Organization Details Last Updated DateTime 04/07/2023 162.56 cm Karlie Randall [facility] [place] [facility] 04/07/2023 12:22:07 Date Recorded Body height Provider Name an d Address Organization Details Last Updated DateTime 04/22/2023 162.56 cm Karlie Randall [facility] [place] [facility] 04/22/2023 12:04:48 Date Recorded Body height Provider Name an d Address Organization Details Last Updated DateTime 05/11/2023 162.56 cm Karlie Randall [facility] [place] [facility] 05/11/2023 09:04:41 Date Recorded Body height Provider Name an d Address Organization Details Last Updated DateTime 06/03/2023 162.56 cm Karlie Randall [facility] [place] [facility] 06/03/2023 10:23:22 Social History Question Answer Notes LastModified by Organizat ion Details LastModified Time Tobacco Smoking Status Never Smoker Delia Pena null, [facility] [place] [facility] 06/03/2023 10:12:09 What Is Your Level Of Alcohol Consumption? Occasional [id number] Information not available 01/12/2023 Sex: Unknown Functional Status None recorded. Mental Status None recorded. Family History Relationship Description Onset Age of this Age Resolved Age Notes LastModified by Organization Details LastModified Time Father Heart disease [id number] [id number] Not available 01/12/2023 00:49:06 Father Hypertensive disorder [id number] Not available 01/12/2023 00:49:06 Mother Heart disease [id number] Not available 01/12/2023 00:49:06 Mother Hypertensive disorder [id number] Not available 01/12/2023 00:49:06 Brother Heart disease [id number] Not available 01/12/2023 00:49:06 Medical History Condition Response BLINDNESS N KIDNEY STONES N MRSA N CARPAL TUNNEL SYNDROME N LUNG DISEASE/DISORDER N HISTORY OF DRUG ABUSE N COPD N RADIATION / CHEMOTHERAPY N SPORTS INJURY N ANKLE PAIN N BLOOD DISEASES N SCHIZOPHRENIA N SHINGLES N BOWEL PROBLEMS N SHOULDER PAIN N DEPRESSION (INCLUDING POST ) N STROKE/TIA [...] N NEUROPATHY N AIDS/HIV N FRACTURES N ELBOW PAIN N HYPERTENSION Y TOURETTE'S N ANXIETY DISORDER N Metal allergy N BLOOD TRANSFUSION N ANEMIA/BLOOD DISORDER N BIPOLAR DISORDER N BRONCHITIS N OSTEOARTHRITIS N TUBERCULOSIS N FOOT PROBLEM N HEART VALVE DISORDERS N ALLERGIES/HAYFEVER N SOFT TISSUE INJURY N INFECTIOUS DISEASE N HEART ARRHYTHMIA N INSOMNIA N RHEUMATOID ARTHRITIS N HIGH CHOLESTEROL / HYPERLIPIDEMIA N EDEMA N CHRONIC PAIN SYNDROME N CAROTID BLOCKAGE N BACK / NECK PROBLEMS N HAVE YOU BEEN HOSPITALIZED OR SEEN IN [facility] IN THE PAST YEAR ? N BURSITIS N HERNIATED DISC N DIALYSIS N FIBROMYALGIA N OSTEOPOROSIS N ARTHRITIS Y NO SIGNIFICANT PAST MEDICAL HISTORY N PERIPHERAL NEUROPATHY N DIABETES, TYPE N HEARTBURN / REFLUX N HEPATITIS / LIVER DISEASE N GOUT N SLEEP DISORDER N ALZHEIMER'S DISEASE N HERPES N SEIZURES/EPILEPSY N HEADACHES/MIGRAINES N VASCULAR DISEASE N HIP PAIN N Blood Disorder N DIZZINESS N HEAD TRAUMA OR INJURY N HEART DISEASE/HEART PROBLEMS Y MULTIPLE SCLEROSIS N CARDIAC ARRHYTHMIA N CANCER: SPECIFY N ANESTHESIA COMPLICATIONS N ATRIAL FIBRILLATION N AUTOIMMUNE DISEASE N Gynecological HistoryNo gynecological history recorded. Obstetrics History GPAL:G 0 P 0 0 0 0 Past Encounters Encounter ID Performer Location Encounter Start Date Encounter Closed Date Diagnosis/Indication Diagnosis SNOMED-CT Code Diagnosis ICD10 Code Diagnosis Note [id number] [facility] [place] [address] [place] [address] 01/12/2021 00:00:00 01/12/2021 14:46:55 [id number] [facility] [place] [address] [place] [address] 01/26/2021 00:00:00 01/26/2021 15:38:38 [id number] [facility] [place] [address] [place] [address] 04/03/2021 00:00:00 04/03/2021 09:59:55 [id number] [facility] [place] [address] [place] [address] 05/01/2021 00:00:00 05/01/2021 09:14:43 [id number] [facility] [place] [address] [place] [address] [place] [address] 06/04/2021 00:00:00 06/04/2021 11:10:45 [id number] [facility] [place] [address] [place] [address] 06/12/2021 00:00:00 06/13/2021 12:11:52 [id number] [facility] [place] [address] [place] [address] 07/10/2021 00:00:00 07/10/2021 09:44:19 [id number] [facility] [place] [address] [place] [address] 07/24/2021 00:00:00 07/24/2021 12:01:16 [id number] [facility] [place] [address] [place] [address] 01/01/2022 00:00:00 01/01/2022 10:41:38 [id number] [facility] [place] [address] [place] [address] 04/16/2022 00:00:00 04/16/2022 09:57:05 [id number] [facility] [place] [address] [place] [address] 04/30/2022 00:00:00 04/30/2022 09:18:47 [id number] Aydin Pritchard MD [address] [address] 02/03/2023 09:59:49 02/03/2023 11:15:08 Pain of right shoulder joint 9455296852 0603940 M25.511 [id number] Aydin Pritchard MD [facility] [place] [address] [place] [address] 03/16/2023 09:46:32 03/16/2023 10:51:04 Partial thickness rotator cuff tear 787718287 M75.101 [id number] Aydin Pritchard MD [address] [address] 04/07/2023 12:05:17 04/08/2023 09:46:52 Pain of left shoulder joint 8545788233 5831606 M25.512 [id number] ROSALIA Owens [facility] [place] [address] [place] [address] 04/22/2023 11:58:33 04/22/2023 13:52:51 Closed fracture of upper end of humerus 12691935 S42.D Pain of le ft elbow joint 1239188646 5846507 M25.522 Pain of left wrist 27763 02809 57486 M25.532 [id number] ROSALIA Owens [facility] [place] [address] [place] [address] 05/11/2023 09:00:00 05/11/2023 10:14:12 Closed fracture of upper end of humerus 75798772 S42.202D Pain of ri ght shoulder joint 0981352015 6508006 M25.511 [id number] ROSALIA Owens [facility] [place] [address] [place] [address] 06/03/2023 10:10:44 06/03/2023 11:23:28 Closed fracture of upper end of humerus 86824346 S4 Health Concerns Section Related Observation LastModified by Organization Detai ls LastModified Time None Recorded Concern Status LastModified by Organization Details LastModified Time None Recorded Advance Directives Directive None Recorded Payers Encounter Date Sequence Insurance Name Policy Number Policy Ba Covered Member ID [id number] Member ID Guarantor Name 03/16/2023 1 [place] Betzy S Reddo [id number] Betzy S Reddo 03/16/2023 2 [place] [id number] Betzy S Reddo [id number] Betzy S Reddo 04/07/2023 1 [place] Betzy S Reddo [id number] Betzy S Reddo 04/07/2023 2 [place] [id number] Betzy S Reddo [id number] Betzy S Reddo 04/22/2023 1 [place] Betzy S Reddo [id number] Betzy S Reddo 04/22/2023 2 [place] [id number] Betzy S Reddo [id number] Betzy S Reddo 05/11/2023 1 [place] Betzy S Reddo [id number] Betzy S Reddo 05/11/2023 2 [place] [id number] Betzy S Reddo [id number] Betzy S Reddo 06/03/2023 1 [place] Betzy S Reddo [id number] Betzy S Reddo 06/03/2023 2 [place] [id number] Betzy S Reddo [id number] Betzy S Reddo Notes Date Note [...] with supraspinatus insertional disease. Aydin Pritchard MD [address] [place] [address], [place] [address], [place], [address], [place] [facility] 04/07/2023 19:53:42 OBGyn Episode No OBEpisode recorded.
--- OUTSIDE RECORDS SUMMARY | 2025-01-21 01:24 | XMS_ITS ---
Author Organization [facility] Address [address] [place], [place] [id number] Care Team Providers Care Firer Watertender Name Role Phone LISA BUTLER Unavailable [phone] Janeth Viramontes Unavailable Unavailable Allergies Allergen (clinical [...] mononitrate 20 MG Oral Tablet *Reorder from [facility] for eRx and Interaction Alerts* 0 Active 12 HR ranolazine 1000 MG Extended Release Oral Tablet [Ranexa] ORAL 12 HR ranolazine 1000 MG Extended Release Oral Tablet [Ranexa]Original [id number] HR ranolazine 1000 MG Extended Release Oral Tablet [Ranexa] *Reorder from [facility] for eRx and Interaction Alerts* 6 Active Lisinopril 10 MG Oral Tablet ORAL lisinopril 10 MG Oral TabletOriginal Medicationlisinopril 10 MG Oral Tablet *Reorder from [facility] for eRx and Interaction Alerts* 0 Active aspirin 81 MG Delayed Release Oral Tablet ORAL aspirin 81 MG Delayed Release Oral TabletOriginal Medicationaspirin 81 MG Delayed Release Oral Tablet *Reorder from [facility] for eRx and Interaction Alerts* 6 Active amlodipine 10 MG Oral Tablet ORAL amlodipine 10 MG Oral TabletOriginal Medicationamlodipine 10 MG Oral Tablet *Reorder from [facility] for eRx and Interaction Alerts* 0 Active pantoprazole 40 MG Delayed Release Oral Tablet ORAL pantoprazole 40 MG Delayed Release Oral TabletOriginal Medicationpantoprazole 40 MG Delayed Release Oral Tablet *Reorder from [facility] for eRx and Interaction Alerts* 0 Active Famotidine 20 MG Oral Tablet ORAL famotidine 20 MG Oral TabletOriginal Medicationfamotidine 20 MG Oral Tablet *Reorder from [facility] for eRx and Interaction Alerts* 0 Active Medrol Dosepak ORAL Medrol DosepakOr iginal MedicationMedrol Dosepak *Reorder from [facility] for eRx and Interaction Alerts* 3 Active urea 400 MG/ML Topical Cream CUTANEOUS urea 400 MG/ML Topical CreamOriginal Medicationurea 400 MG/ML Topical Cream *Reorder from [facility] for eRx and Interaction Alerts* 3 Active Furosemide 40 MG Oral Tablet ORAL furosemide 40 MG Oral TabletOriginal Medicationfurosemide 40 MG Oral Tablet *Reorder from [facility] for eRx and Interaction Alerts* 0 Active ciclopirox 80 MG/ML Topical Solution ciclopirox 80 MG/ML Topical SolutionOriginal Medicationciclopirox 80 MG/ML Topical Solution *Reorder from [facility] for eRx and Interaction Alerts* 7 Active calcium carbonate 600 MG / cholecalciferol 125 UNT Oral Tablet ORAL calcium carbonate 600 MG / cholecalciferol 125 UNT Oral TabletOriginal Medicationcalcium carbonate 600 MG / cholecalciferol 125 UNT Oral Tablet *Reorder from [facility] for eRx and Interaction Alerts* 6 Active clotrimazole 10 MG/ML Topical Solution CUTANEOUS clotrimazole 10 MG/ML Topical SolutionOriginal Medicationclotrimazole 10 MG/ML Topical Solution *Reorder from [facility] for eRx and Interaction Alerts* 4 Active levothyroxine sodium 0.2 MG Oral Tablet ORAL levothyroxine sodium 0.2 MG Oral TabletOriginal Medicationlevothyroxine sodium 0.2 MG Oral Tablet *Reorder from [facility] for eRx and Interaction Alerts* 0 Active ipratropium bromide 0.042 MG/ACTUAT Metered Dose Nasal [place] ipratropium bromide 0.042 MG/ACTUAT Metered Dose Nasal SprayOriginal Medicationipratropium bromide 0.042 MG/ACTUAT Metered Dose Nasal [place] *Reorder from [facility] for eRx and Interaction Alerts* 0 Active Encounters Encounter Location Date Provider Diagnosis [facility] [address] [place], [place] [id number] 09/17/2024 LISA SNOOK Tinea unguium B35.1 ; Pain in right toe(s) M79.674 ; Pain in left toe(s) M79.675 and 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, bilateral [...] toe(s) (ICD-10 - M79.675) 09/17/2024 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, bilateral [...] problems arise Provider Name:LISA BUTLER, 10:30:00 AM, [address], [address], [id number], Progress Notes * FREDDIE MARTÍNEZ SDOB:[birth year] (79 yo F)Acc No.[id number]:09/17/2024 Patient: FREDDIE QUARLES Provider: Ramirez Butler DPM :1945 A ge:79 Y S ex:Female Date:09/17/2024 Address:[address] [place] [address] Subjective: * Chief Complaints: * Adithya olivera [...] MG Oral Tablet *Reorder from [facility] for eRx and Interaction Alerts*Famotidine 20 MG Oral Tablet ORAL , Notes to Pharmacist: famotidine 20 MG Oral TabletOriginal Medicationfamotidine 20 MG Oral Tablet *Reorder from [facility] for eRx and Interaction Alerts*Isosorbide Mononitrate 20 MG Oral Tablet ORAL , Notes to Pharmacist: isosorbide mononitrate 20 MG Oral TabletOriginal Medicationisosorbide mononitrate 20 MG Oral Tablet *Reorder from [facility] for eRx and Interaction Alerts*Lisinopril 10 MG Oral Tablet ORAL , Notes to Pharmacist: lisinopril 10 MG Oral TabletOriginal Medicationlisinopril 10 MG Oral Tablet *Reorder from [facility] for eRx and Interaction Alerts*12 HR ranolazine 1000 MG Extended Release Oral Tablet [Ranexa] ORAL , Notes to Pharmacist: 12 HR ranolazine 1000 MG Extended Release Oral Tablet [Ranexa]Original [id number] HR ranolazine 1000 MG Extended Release Oral Tablet [Ranexa] *Reorder from [facility] for eRx and Interaction Alerts*amlodipine 10 MG Oral Tablet ORAL , Notes to Pharmacist: amlodipine 10 MG Oral TabletOriginal Medicationamlodipine 10 MG Oral Tablet *Reorder from [facility] for eRx and Interaction Alerts*aspirin 81 MG Delayed Release Oral Tablet ORAL , Notes to Pharmacist: aspirin 81 MG Delayed Release Oral TabletOriginal Medicationaspirin 81 MG Delayed Release Oral Tablet *Reorder from [facility] for eRx and Interaction Alerts*calcium carbonate 600 MG / cholecalciferol 125 UNT Oral Tablet ORAL , Notes to Pharmacist: calcium carbonate 600 MG / cholecalciferol 125 UNT Oral TabletOriginal Medicationcalcium carbonate 600 MG / cholecalciferol 125 UNT Oral Tablet *Reorder from [facility] for eRx and Interaction Alerts*ciclopirox 80 MG/ML Topical Solution , Notes to Pharmacist: ciclopirox 80 MG/ML Topical SolutionOriginal Medicationciclopirox 80 MG/ML Topical Solution *Reorder from [facility] for eRx and Interaction Alerts*clotrimazole 10 MG/ML Topical Solution CUTANEOUS , Notes to Pharmacist: clotrimazole 10 MG/ML Topical SolutionOriginal Medicationclotrimazole 10 MG/ML Topical Solution *Reorder from [facility] for eRx and Interaction Alerts*ipratropium bromide 0.042 MG/ACTUAT Metered Dose Nasal [place] , Notes to Pharmacist: ipratropium bromide 0.042 MG/ACTUAT Metered Dose Nasal SprayOriginal Medicationipratropium bromide 0.042 MG/ACTUAT Metered Dose Nasal [place] *Reorder from [facility] for eRx and Interaction Alerts*levothyroxine sodium 0.2 MG Oral Tablet ORAL , Notes to Pharmacist: levothyroxine sodium 0.2 MG Oral TabletOriginal Medicationlevothyroxine sodium 0.2 MG Oral Tablet *Reorder from [facility] for eRx and Interaction Alerts*Medrol Dosepak ORAL , Notes to Pharmacist: Medrol DosepakOriginal MedicationMedrol Dosepak *Reorder from [facility] for eRx and Interaction Alerts*pantoprazole 40 MG Delayed Release Oral Tablet ORAL , Notes to Pharmacist: pantoprazole 40 MG Delayed Release Oral TabletOriginal Medicationpantoprazole 40 MG Delayed Release Oral Tablet *Reorder from [facility] for eRx and Interaction Alerts*urea 400 MG/ML Topical Cream CUTANEOUS , Notes to Pharmacist: urea 400 MG/ML Topical CreamOriginal Medicationurea 400 MG/ML Topical Cream *Reorder from [facility] for eRx and Interaction Alerts*Medication List reviewed and reconciled with the patientTaking Furosemide 40 MG Oral Tablet ORAL , Notes to Pharmacist: furosemide 40 MG Oral TabletOriginal Medicationfurosemide 40 MG Oral Tablet *Reorder from [facility] for eRx and Interaction Alerts*Taking Famotidine 20 MG Oral Tablet ORAL , Notes to Pharmacist: famotidine 20 MG Oral TabletOriginal Medicationfamotidine 20 MG Oral Tablet *Reorder from [facility] for eRx and Interaction Alerts*Taking Isosorbide Mononitrate 20 MG Oral Tablet ORAL , Notes to Pharmacist: isosorbide mononitrate 20 MG Oral TabletOriginal Medicationisosorbide mononitrate 20 MG Oral Tablet *Reorder from [facility] for eRx and Interaction Alerts*Taking Lisinopril 10 MG Oral Tablet ORAL , Notes to Pharmacist: lisinopril 10 MG Oral TabletOriginal Medicationlisinopril 10 MG Oral Tablet *Reorder from [facility] for eRx and Interaction Alerts*Taking 12 HR ranolazine 1000 MG Extended Release Oral Tablet [Ranexa] ORAL , Notes to Pharmacist: 12 HR ranolazine 1000 MG Extended Release Oral Tablet [Ranexa]Original [id number] HR ranolazine 1000 MG Extended Release Oral Tablet [Ranexa] *Reorder from [facility] for eRx and Interaction Alerts*Taking amlodipine 10 MG Oral Tablet ORAL , Notes to Pharmacist: amlodipine 10 MG Oral TabletOriginal Medicationamlodipine 10 MG Oral Tablet *Reorder from [facility] for eRx and Interaction Alerts*Taking aspirin 81 MG Delayed Release Oral Tablet ORAL , Notes to Pharmacist: aspirin 81 MG Delayed Release Oral TabletOriginal Medicationaspirin 81 MG Delayed Release Oral Tablet *Reorder from [facility] for eRx and Interaction Alerts*Taking calcium carbonate 600 MG / cholecalciferol 125 UNT Oral Tablet ORAL , Notes to Pharmacist: calcium carbonate 600 MG / cholecalciferol 125 UNT Oral TabletOriginal Medicationcalcium carbonate 600 MG / cholecalciferol 125 UNT Oral Tablet *Reorder from [facility] for eRx and Interaction Alerts*Taking ciclopirox 80 MG/ML Topical Solution , Notes to Pharmacist: ciclopirox 80 MG/ML Topical SolutionOriginal Medicationciclopirox 80 MG/ML Topical Solution *Reorder from [facility] for eRx and Interaction Alerts*Taking clotrimazole 10 MG/ML Topical Solution CUTANEOUS , Notes to Pharmacist: clotrimazole 10 MG/ML Topical SolutionOriginal Medicationclotrimazole 10 MG/ML Topical Solution *Reorder from [facility] for eRx and Interaction Alerts*Taking ipratropium bromide 0.042 MG/ACTUAT Metered Dose Nasal [place] , Notes to Pharmacist: ipratropium bromide 0.042 MG/ACTUAT Metered Dose Nasal SprayOriginal Medicationipratropium bromide 0.042 MG/ACTUAT Metered Dose Nasal [place] *Reorder from [facility] for eRx and Interaction Alerts*Taking levothyroxine sodium 0.2 MG Oral Tablet ORAL , Notes to Pharmacist: levothyroxine sodium 0.2 MG Oral TabletOriginal Medicationlevothyroxine sodium 0.2 MG Oral Tablet *Reorder from [facility] for eRx and Interaction Alerts*Taking Medrol Dosepak ORAL , Notes to Pharmacist: Medrol DosepakOriginal MedicationMedrol Dosepak *Reorder from [facility] for eRx and Interaction Alerts*Taking pantoprazole 40 MG Delayed Release Oral Tablet ORAL , Notes to Pharmacist: pantoprazole 40 MG Delayed Release Oral TabletOriginal Medicationpantoprazole 40 MG Delayed Release Oral Tablet *Reorder from [facility] for eRx and Interaction Alerts*Taking urea 400 MG/ML Topical Cream CUTANEOUS , Notes to Pharmacist: urea 400 MG/ML Topical CreamOriginal Medicationurea 400 MG/ML Topical Cream *Reorder from [facility] for eRx and Interaction Alerts*Medication List reviewed [...] - M79.675 4 . A therosclerosis of jackson arteries of extremities with intermittent claudication, bilateral legs - I70.213 Plan: * Treatment: * Procedure Codes: 1 1721 DEBRIDE NAIL, 6 OR MORE, Modifiers: Q8 * Follow Up: 1 0-12 Weeks (Reason: At Risk Foot care, sooner if problems arise) * Billing Information: * Visit Code: * Procedure Codes: 26421 DEBRIDE NAIL, 6 OR MORE. Modifiers: Q8 * T FARMER Sign off status: Completed true * Provider: Ramirez Butler DPM Date: 11/17/2023 Generated for Santi torres/Milton/Kelton on: 0 01/21/2025 01:24 AM CDT History and Physical Notes * HPI (History [...]
--- OUTSIDE RECORDS SUMMARY | 2025-01-21 01:24 | XMS_ITS ---
Author Organization [facility] Address [address] [place], [place] [phone] Care Team Providers Care Project Manager Retail Name Role Phone LISA BUTLER Unavailable [phone] Janeth Viramontes Unavailable Unavailable Allergies Allergen (clinical [...] sodium 0.2 MG Oral Tablet *Reorder from [facility] for eRx and Interaction Alerts* 0 Active Medrol Dosepak ORAL Medrol DosepakOr iginal MedicationMedrol Dosepak *Reorder from [facility] for eRx and Interaction Alerts* 3 Active ciclopirox 80 MG/ML Topical Solution ciclopirox 80 MG/ML Topical SolutionOriginal Medicationciclopirox 80 MG/ML Topical Solution *Reorder from [facility] for eRx and Interaction Alerts* 7 Active clotrimazole 10 MG/ML Topical Solution CUTANEOUS clotrimazole 10 MG/ML Topical SolutionOriginal Medicationclotrimazole 10 MG/ML Topical Solution *Reorder from [facility] for eRx and Interaction Alerts* 4 Active ipratropium bromide 0.042 MG/ACTUAT Metered Dose Nasal [place] ipratropium bromide 0.042 MG/ACTUAT Metered Dose Nasal SprayOriginal Medicationipratropium bromide 0.042 MG/ACTUAT Metered Dose Nasal [place] *Reorder from [facility] for eRx and Interaction Alerts* 0 Active Lisinopril 10 MG Oral Tablet ORAL lisinopril 10 MG Oral TabletOriginal Medicationlisinopril 10 MG Oral Tablet *Reorder from [facility] for eRx and Interaction Alerts* 0 Active 12 HR ranolazine 1000 MG Extended Release Oral Tablet [Ranexa] ORAL 12 HR ranolazine 1000 MG Extended Release Oral Tablet [Ranexa]Original [id number] HR ranolazine 1000 MG Extended Release Oral Tablet [Ranexa] *Reorder from [facility] for eRx and Interaction Alerts* 6 Active amlodipine 10 MG Oral Tablet ORAL amlodipine 10 MG Oral TabletOriginal Medicationamlodipine 10 MG Oral Tablet *Reorder from [facility] for eRx and Interaction Alerts* 0 Active aspirin 81 MG Delayed Release Oral Tablet ORAL aspirin 81 MG Delayed Release Oral TabletOriginal Medicationaspirin 81 MG Delayed Release Oral Tablet *Reorder from [facility] for eRx and Interaction Alerts* 6 Active calcium carbonate 600 MG / cholecalciferol 125 UNT Oral Tablet ORAL calcium carbonate 600 MG / cholecalciferol 125 UNT Oral TabletOriginal Medicationcalcium carbonate 600 MG / cholecalciferol 125 UNT Oral Tablet *Reorder from [facility] for eRx and Interaction Alerts* 6 Active urea 400 MG/ML Topical Cream CUTANEOUS urea 400 MG/ML Topical CreamOriginal Medicationurea 400 MG/ML Topical Cream *Reorder from [facility] for eRx and Interaction Alerts* 3 Active [...] Location Date Provider Diagnosis [facility] [address] [place] [phone] 12/17/2024 LISA KAILEYK Tinea unguium B35.1 ; Pain in right foot M79.671 ; Pain in left foot M79.672 ; Atherosclerosis of tejon arteries of extremities with intermittent claudication, bilateral [...] foot (ICD-10 - M79.672) 12/17/2024 Atherosclerosis of tejon arteries of extremities with intermittent claudication, bilateral [...] Name:LISA BUTLER, 10:30:00 AM, [address], [address], [phone], Progress Notes * FREDDIE MARTÍNEZ SDOB:[birth year] (79 yo F)Acc No.[id number]:12/17/2024 Patient: FREDDIE QUARLES Provider: Ramirez Butler DPM :1945 A ge:79 Y S ex:Female Date:12/17/2024 Address:[address] [place] [address] Subjective: * Chief Complaints: * P jarod presents for at-risk foot care . The patient has painful toenails and calluses that are causing difficulty with ambulation and shoegear. The onset is gradual * HPI: H PI: General care P jarod presents to the office for at risk foot care. Patient states that their nails are thickened, elongated and painful. Patient states that it is aggravated by shoe gear. Onset is gradual. Patient denies being diabetic., Patient denies taking prescription blood thinners but does take a daily aspirin., Date last seen by Dr. Viramontes was 11/2024., Initials [facility]. * ROS: G eneral / Constitutional: Patient [...] difficulty speaking, dizziness. * Medical History: * Surgical History: * Hospitalization/Major Diagno stic Procedure: * Medications: T akingFurosemide 40 MG Oral [...] 1000 MG Extended Release Oral Tablet [Ranexa]Original [id number] HR ranolazine 1000 MG Extended Release Oral [...] Alerts*ipratropium bromide 0.042 MG/ACTUAT Metered Dose Nasal [place] , Notes to Pharmacist: ipratropium bromide 0.042 MG/ACTUAT Metered Dose Nasal SprayOriginal Medicationipratropium bromide 0.042 MG/ACTUAT Metered Dose Nasal [place] *Reorder from [facility] for [...] 1000 MG Extended Release Oral Tablet [Ranexa]Original Nqxdemibqx41 HR ranolazine 1000 MG Extended Release Oral [...] ipratropium bromide 0.042 MG/ACTUAT Metered Dose Nasal [place] , Notes to Pharmacist: ipratropium bromide 0.042 MG/ACTUAT Metered Dose Nasal SprayOriginal Medicationipratropium bromide 0.042 MG/ACTUAT Metered Dose Nasal [place] *Reorder from [facility] for [...] - M79.672 4 . A therosclerosis of tejon arteries of extremities with intermittent claudication, bilateral [...] SKIN LESIONS, 2 TO 4, Modifiers: Q8 45601 DEBRIDE NAIL, 6 OR MORE, Modifiers: 59 , Q8 * Follow Up: 1 0 - 12 weeks (Reason: At-Risk Foot care, sooner if problems develop.) * Billing Information: * Visit Code: * Procedure Codes: 85363 TRIM SKIN LESIONS, 2 TO 4. Modifiers: Q8 16837 DEBRIDE NAIL, 6 OR MORE. Modifiers: 59, Q8 * INSURANCE SALESPERSON Sign off status: Completed true * Provider: Ramirez Butler DPM Date: 0 12/17/2024 Generated for Santi torres/Milton/Kelton on: 0 01/21/2025 [...]
--- OUTSIDE RECORDS SUMMARY | 2025-01-21 01:25 | XMS_ITS | Patient Health Record ---
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 Spasm of sphincter of Oddi (89140529) PLAN OF TREATMENT Pending Test Test Name Order Date Endoscopic Retrograde Cholangiopancreato graphy (ERCP) 01/21/2020 Endoscopic Retrograde Cholangiopancreato graphy (ERCP) 02/13/2020 Insurance Providers Payer Name Payer Address Payer Phone Subscriber Number Group Number Insured Name Patient Relationship to Insured Coverage Start Date Coverage End Date Medicare-M O Medicare [address] [address] [place], [place] [id number] Betzy Juarez Self - patient is the insured [facility] [address] [place], [place] [phone] [id number] AhsanShiraBetzy Self - patient is the [...]
[2025-01-21] MEDS: ACETAMINOPHEN 500 MG TABLET 1000 MG PO (07:10)
[2025-01-21] MEDS: LACTATED RINGERS 1,000 ML 30 ML IV CONT (07:15)
[2025-01-21] MEDS: KETOROLAC 15 MG/ML VIAL (*BKC) IV PUSH (07:18)
--- NOTE | 2025-01-21 07:32 | WPDANESEPPF ---
Anes - Initial Pre Proc Eval Procedure: Operation Date: 01/21/25 08:30 Proposed Procedures p Left Carpal Tunnel Release, - Aydin Pritchard MD s Left Third and Fourth Finger A-1 Aaron Release - Aydin Pritchard MD Date/Time: 01/21/25 07:32 Surgeon: Aydin Pritchard MD Pre Op Diagnosis: Lft Carpal Tunnel synd. Left 3/4 trigger finger Patient Data Age: 79 Gender: F Height: 1.63 m Weight: 95 kg Allergies Allergy/AdvReac Type Severity Reaction Status Date / Time bacitracin Allergy Intermediate RASH Verified 01/07/25 09:26 adhesive tape Allergy Mild rash Verified 01/07/25 09:26 latex Allergy Mild RASH WITH Verified 01/07/25 09:26 BLISTERS neomycin (From Neosporin AdvReac Mild redness/irr Verified 01/07/25 09:26 ([id number])) itation polymyxin B (From Neosporin AdvReac Mild redness/irr Verified 01/07/25 09:26 ([id number])) iation Home Medications ?Medication ?Instructions ?Recorded ?Confirmed ?Type famotidine 20 mg tablet 20 mg PO DAILY 10/26/19 01/21/25 History fluticasone propionate 50 2 inhalation inhalation HS PRN 10/26/19 01/21/25 History mcg/actuation blister powder for Congestion inhalation furosemide 40 mg tablet 60 mg PO QAM 10/26/19 01/21/25 History ipratropium bromide 42 mcg (0.06 2 spray intranasal BID PRN 10/26/19 01/21/25 History %) nasal spray Congestion levothyroxine 200 mcg tablet 200 mcg PO QAM 10/26/19 01/21/25 History pantoprazole 40 mg tablet,delayed 40 mg PO QAM 10/26/19 01/21/25 History release paroxetine HCl 20 mg tablet 40 mg PO QAM 10/26/19 01/21/25 History pravastatin 40 mg tablet 40 mg PO HS 10/26/19 01/21/25 History (Pravachol) cyanocobalamin (vitamin B-12) 500 500 mcg PO DAILY 12/05/20 01/21/25 History mcg lozenges (Vitamin B-12) isosorbide mononitrate 30 mg 90 mg PO QAM 12/05/20 01/21/25 History tablet,extended release 24 hr flaxseed oil 1,000 mg capsule 1,000 mg PO BID 03/25/21 01/21/25 History metoprolol tartrate 25 mg tablet 25 mg PO BID 03/25/21 01/21/25 History vit C 250 mg-vit E 200 unit-zinc 1 tablet PO BID 03/25/21 01/21/25 History 12.5 mg-copper 1 [id number] tablet (ICaps AREDS2 (copper citrate)) losartan 100 mg tablet 100 mg PO DAILY 04/05/23 01/21/25 History gabapentin 100 mg capsule 100 mg PO TID 06/27/24 01/21/25 History latanoprost 0.005 % eye drops 1 drp LEFT EYE HS 08/16/24 01/21/25 History potassium chloride 10 mEq 10 meq PO DAILY 08/17/24 01/21/25 History tablet,extended release acetaminophen 500 mg tablet 1,000 mg PO HS 09/27/24 01/21/25 History aspirin 81 mg chewable tablet 1 tablet PO DAILY 09/27/24 01/21/25 History zoledronic acid 5 mg/100 mL in 1 ea IV .Yearly 12/07/24 01/07/25 History mannitol 5 %-water intravenous piggybck (Reclast) hydrochlorothiazide 25 mg tablet 12.5 mg PO DAILY 12/31/24 01/21/25 History budesonide-formoterol HFA 80 1 inh inhalation QID asthma 01/04/25 01/21/25 History mcg-4.5 mcg/actuation aerosol inhaler (Symbicort) Patient hx anesthesia problems: none Family hx anesthesia problems: none Results Review: All pre-operative results and documents have been reviewed as part of the pre-operative evaluation. [facility] Past Medical History Medical History Dermatitis of ear canal Hearing loss, left Neuropathy Arthritis Wears glasses Hypothyroidism Anxiety Congestive heart failure the patient stated that she was diagnosed with CHF but he did not see any diagnosis under cardiology note. She is on diuretics. Angina pectoris High cholesterol GERD (gastroesophageal reflux disease) HTN (hypertension) Thyroid disease Surgical History Surgical History H/O hand surgery 10/2024 Right hand History of bladder surgery S/P colonoscopic polypectomy S/P total knee arthroplasty right total knee arthroplasty today by Dr. Pritchard 12/15/2020 History of cataract surgery H/O colonoscopy Hx laparoscopic cholecystectomy History of ERCP x3. She had stents placed which were subsequently removed in some type of the duct. Not sure if it is a common bile duct pancreatic duct or the liver. H/O total hysterectomy History of back surgery History of total knee replacement Left total knee arthroplasty Family History Family History Father COPD (chronic obstructive pulmonary disease) Heart disease Malignant neoplasm of prostate Hypertension Mother Heart disease Alzheimer's dementia Acute myocardial infarction Hypertension Other Diabetes mellitus Cancer Cerebrovascular accident Sibling Heart disease Unknown Diabetes mellitus Heart disease Cancer Cerebrovascular accident Hypertension Kidney disease Other Arthritis High cholesterol Social History Social History Social History: the patient lives with her . 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 The patient is a full code. 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 The patient has 2 children 1 son and 1 daughter. The patient is a lifelong nonsmoker. It may be has 3 drinks of alcohol per year. Caffeine- coffee Smoking status: Never smoker Second hand tobacco smoke exposure: Yes Alcohol intake: current Alcohol use details: wine yearly Substance use: current Substance use type: marijuana Other substance usage details: 2 gummies at night for leg cramps Last use: 08/15/24 Current Housing: Decline to Answer Concerned About Future Housing: Decline to Answer Difficulty Paying Gas/Electric Bills: Decline to Answer Difficulty Paying for Meds: Decline to Answer Currently Unemployed: Decline to Answer Education: Decline to Answer Difficulty w/ Childcare or Family Care: Decline to Answer Living arrangements: with family Additional living arrangements comments: Occupation/Education: retired 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 [employer] Gender identity (if verbalized by the patient): Female Spiritual care concerns: No Anes - Eval Final PreProcedure Day of Procedure 01/21/25 07:32 Patient weight: obese Heart: regular rate and rhythm Lungs: decreased breath sounds Airway: Mallampati scale class II Neurological: alert and oriented Last oral intake: >/= 8 hours ASA classification: III Emergent: no Anesthetic plan: proceed Anesthesia type and monitoring: general LMA and standard monitoring Results Review: All pre-operative results and documents have been reviewed as part of the pre-operative evaluation. Informed Consent: The patient's anesthetic plan and its attendant risks and benefits were discussed with the patient/family/POA. Questions were solicited and answers provided to the satisfaction of the patient/family/POA.
--- NOTE | 2025-01-21 07:47 | WPDHPUPDATE1 ---
History and Physical Update Update Date/Time: 01/21/25 07:47 History and Physical has been reviewed, including an updated exam of the patient. There are NO changes in the patient's condition. Risks, benefits, and alternatives have been discussed and questions answered. Patient agrees to proceed with procedure.
[2025-01-21] MEDS: ceFAZolin 2 GM/D5W 50 ML 2 GM/50 ML BAG IVPB (07:59)
[2025-01-21] MEDS: LIDOCAINE 1% LOCAL INJ 10 ML VIAL 20 ML INFILTRATE (08:09)
--- NOTE | 2025-01-21 12:15 | W.PM.PROC2 ---
Procedure Note - Detailed Date of Procedure 01/21/25 Pre-op Diagnosis Lft Carpal Tunnel synd. Left 3 and 4 trigger fingers Post-op Diagnosis Same Procedure Performed Left carpal tunnel release, A1 ben release right ring and long fingers. Surgeon Aydin Pritchard MD Expanded Duty Dental Assistant Scooby Santillan Anesthesia General Description of Procedure Patient was brought to the operating room and LMA anesthesia was administered the. She received 2 g of Ancef preoperatively. The left arm was prepped draped usual fashion. Local anesthesia was administered after after marking the incision sites using 1% plain lidocaine. Limb was exsanguinated and tourniquet elevated to 250 mmHg. A 2 cm longitudinal incision was made at the base of the palm in line with the radial border of the 4th ray. Dissection was carried down through the superficial palmar fascia to the transverse carpal ligament which was longitudinally incised. Complete release was achieved distally. Proximally subcutaneous fat was elevated off the distal volar forearm fascia and a [place] elevator passed underneath the fascia to from the underlying nerve the fascia split for a distance of 3 cm proximal to the flexor crease of the wrist. Median nerve looked unremarkable. No masses in the canal. A 1 cm longitudinal incision was made over the A1 ben of the left ring finger. Dissection was carried down to the A1 ben. The cleft between the A1 and A2 pulleys was clearly identified in the A1 ben was released from distal to proximal completing the release and the finger moved well afterwards. Focal swelling of the tendon was visualized. The same procedure was performed on the left long finger. On this side there was a separate 2 mm band proximal to the A1 ben and a definitive cleft noted between the 2 mm band and the A2 ben and the A1 ben and the band were released from distal to proximal. Again there was swelling of the flexor tendons and minimal surface fraying of the tendon portion that was under the A1 ben. Tourniquet was released. The wounds irrigated. The wounds were closed with 5 0 nylon suture in the skin of all 3 incisions. A soft bulky dressing was applied and she was transferred to postoperative recovery room and there were no known complications. [facility] Billing Surgery - Charge Forward: Surgery Billing (Left carpal tunnel release, release A1 pulleys left long and ring fingers for trigger fingers.)
== END 2025-01-21 11:01 | disposition home or self-care (01) ==
PROVIDERS: PCP Internal Medicine; Visit Provider Orthopaedic Surgery
PROC: (CPT 64721; principal; 2025-01-21 08:30)
PROC: (CPT 26055; 2025-01-21 08:30)
DX: G56.02 Carpal tunnel syndrome, left upper limb (principal); M65.332 Trigger finger, left middle finger; M65.342 Trigger finger, left ring finger; F12.90 Cannabis use, unspecified, uncomplicated; E66.9 Obesity, unspecified; Z68.36 Body mass index [BMI] 36.0-36.9, adult
CPT/HCPCS: 64721; 26055 ×2; A9270; J0690; J1885; J2003; J2704; J3010; J7120

== ENCOUNTER 2025-03-22 07:36 | Outpatient (CLI) | payer MEDICARE, SELFPAY ==
--- NOTE | ~2025-03-22 | MM_ITS ---
EXAMINATION: MM screening [facility] BI w mauro HISTORY: Screening TECHNIQUE: Craniocaudal and mediolateral oblique 3-D tomosynthesis images were obtained and synthetic 2-D images were generated. CAD analysis was submitted and interpreted. COMPARISON: Comparison to multiple prior studies sequentially, with oldest reviewed study dated 01/05. BREAST PARENCHYMAL COMPOSITION: Not dense: There are scattered areas of fibroglandular density. FINDINGS: There is no evidence of suspicious mass, calcification, or architectural distortion to sugg est malignancy in either breast. There has been no suspicious interval change. IMPRESSION: 1. No mammographic evidence of malignancy. 2. Recommend routine screening mammography in one year. BI-RADS Category 1: Negative Reviewed, dictated and finalized at location A.
--- OUTSIDE RECORDS SUMMARY | 2025-03-22 07:41 | XMS_ITS | Patient Health Record ---
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..]
--- OUTSIDE RECORDS SUMMARY | 2025-03-22 07:41 | XMS_ITS | Data Portability ---
Author Organization [place] - [facility], Main Office Address [address] [place] [address] Care Team Providers Care Link Cutter Name Role Phone RUBENS MONTOYA Primary Care Provider [phone] RUBENS MONTOYA Referring Provider [phone] Assessment Encounter Date Assessment Date Assessment LastModified [...] more than half the time spent in mgxl-ad-wrlj care. Not available 03/16/2023 10:23:27 04/07/2023 04/07/2023 [...] recommended that she take Citracal +D to [place] tablets a day in the time being. [...] than half of this time spent in ccbh-sd-tmwl care. Not available 04/07/2023 19:53:25 04/22/2023 04/22/2023 [...] patient more than half of this in kyjz-ta-aqwn conversation Not available 04/22/2023 13:40:48 05/11/2023 05/11/2023 [...] patient more than half of this in vann-hy-ktsy conversation Not available 05/11/2023 10:09:34 06/03/2023 06/03/2023 [...] patient more than half of this in jjga-xe-ttmp conversation Not available 06/03/2023 11:06:01 Plan of Treatment Reminders Order Date Submit Date Provider Last Modified By Organization Details Last Modified Time Details Appointments None recorded. Lab None recorded. Referral physical therapist referral - see attached order- please schedule pt 2022 023 [email or web address] [facility], [address] [place], [address], 3 14:21:10 Procedures injection/a spiration joint/bursa (PROC) - in office procedure, administere d by provider 2022 023 [email or web address] In-Office Order, Internal Use Only DO Not Attach Compendium DO Not Attach Compendium, Do Not Delete/merge, [address] 09:57:30 Surgeries None recorded. Imaging XR, shoulder 2022 023 [facility] [place], [address], [place], [address], 3 11:30:58 XR, shoulder 2022 023 [facility] [place], [address], [place], [address], 3 13:10:33 XR, elbow 2022 023 [email or web address] [facility] [place], [address], [place], [address], 3 13:52:51 XR, shoulder 2022 023 [facility] [place], [address], [place], [address], 3 12:30:32 XR, wrist 2022 023 [email or web address] [facility] [place], [address], [place], [address], 3 13:52:51 Medication Orders Kenalog 10 mg/mL suspension for injection 2022 023 [facility], [address] [place], [address], 13:10:33 ropivacaine (PF) 5 mg/mL (0.5 %) injection solution 2022 023 [facility], [address] [place], [address], 13:10:33 Patient TargetsNo targets recorded. Patient InstructionsNo [...] shoul janet No observ ation record ed. [facility] [place] [address], [place], [address], 04/22/2023 13:39:16 04/22/20 XR, wrist No observ ation record ed. [facility] [place] [address], [place], [address], 04/22/2023 13:38:39 06/09/20 23 XR, elbow No observ ation record ed. [facility] [place] [address], [address], 04/22/2023 13:38:16 05/11/20 23 XR, shoul janet No observ ation record ed. [facility] [place] [address], [address], 05/11/2023 10:06:48 06/03/20 23 XR, shoul janet No observ ation record ed. [facility] [place] [address], [address], 06/03/2023 11:03:45 Result Notes None recorded. Problems Name Problem SNOMED Code Status Onset Date Resolution Date Notes Provider Name and Address Organization Details Recorded Time History of total knee arthroplas ty 0495138084676 Active 2021 Not Available [facility] 3 00:55:20 Pain of left shoulder joint 1404603441778 9109 Active 2021 Not Available [facility] 3 00:55:20 Stable angina 130784874 Active 2018 Not Available [facility] 3 00:55:20 Enthesopat hy of hip region 82557959 Active Not Available [facility] 3 00:55:20 Osteoarthr itis of left knee joint 4542009604938 09 Active 2018 Not Available [facility] 3 00:55:20 Osteoarthr itis 319295598 Active Not Available [facility] 3 00:55:20 Pain of left hip joint 2428724839852 00 Active 2022 FREDERICK Mobley, [facility] [employer] [facility] 3 10:18:52 Pain of right shoulder joint 1993720072365 9100 Active 2022 FREDERICK Mobley, [place] - [facility] 3 10:19:32 Partial thickness rotator cuff tear 927680940 Active 2022 Karlie Randall RMA null, [facility] 3 09:54:19 Vitamin D deficiency 50941406 Active 2022 Nava Garcia [employer] null, [facility] 3 13:32:39 Closed fracture of upper end of humerus 76955018 Active 2022 Karlie Randall RMA null, [facility] 3 12:06:45 Pain of left elbow joint 0845301478523 9104 Active 2022 Karlie Randall RMA null, [facility] 3 12:07:11 Pain of left wrist 0249266815518 02 Active 2022 Karlie Randall RMA null, [facility] 3 12:53:17 Problem Notes None recorded. Procedures Surgical History None recorded. Imaging Results Imaging Date Name Status [facility] by [facility] Details LastModified Time 04/05/2023 XR, shoulder, 2 or more view completed Information not available 04/07/2023 10:41:26 04/05/2023 XR, elbow, 3 or more view completed Information not available 04/07/2023 10:41:26 04/05/2023 XR, wrist, 3 or more view completed Information not available 04/07/2023 10:41:26 03/11/2022 bone density completed [email or web address] Information not available 04/08/2023 15:33:55 04/22/2023 XR, shoulder completed [facility] [place] [address], [place], [address], 04/22/2023 13:39:16 04/22/2023 XR, wrist completed [facility] [place] [address], [place], [address], 04/22/2023 13:38:39 04/22/2023 XR, elbow completed [facility] [place] [address], [place], [address], 04/22/2023 13:38:16 05/11/2023 XR, shoulder completed [facility] [place] [address], [place], [address], 05/11/2023 10:06:48 06/03/2023 XR, shoulder completed [facility] [place] [address], [place], [address], 06/03/2023 11:03:45 Procedure Notes None recorded. Medical Equipment None Reported. Allergies Allergen ID Allergen Name Allergen Category Reaction Reaction Severity Criticality Documentation Date Start Date Code Code System Note Provider Name and Address Organization Details Recorded Time 1368 latex environme nt,medica tion rash Not available Not available 01/12/2023 38297 91 RxNorm BLIST ERS Not Available [facility] 3 01:02:40 1369 bacitraci n medicatio n Not available Not available Not available 01/12/20232018 1291 RxNorm cause d infec teed 2nd degre e no rash or sob Not Available [facility] 3 01:02:40 Medications Name Sig Start Date [...] suspension for injection in office 2022 active [facility]: 0003- 0494- 20 Not Available Not Available [...] administe red by the provider 06/12 completed [facility]: 0409- 4276- 17 Not Available Not Available [...] %) injection solution in office 2022 active [facility] 15160 -064- 01 Not Available Not Available Not [...] Updated DateTime 03/16/2023 162.56 cm Karlie Randall [facility] [employer] [facility] 03/16/2023 09:52:09 Date Recorded Body height Provider Name an d Address Organization Details Last Updated DateTime 04/07/2023 162.56 cm Karlie Randall [facility] [employer] [facility] 04/07/2023 12:22:07 Date Recorded Body height Provider Name an d Address Organization Details Last Updated DateTime 04/22/2023 162.56 cm Karlie Randall [facility] [employer] [facility] 04/22/2023 12:04:48 Date Recorded Body height Provider Name an d Address Organization Details Last Updated DateTime 05/11/2023 162.56 cm Karlie Randall [facility] [employer] [facility] 05/11/2023 09:04:41 Date Recorded Body height Provider Name an d Address Organization Details Last Updated DateTime 06/03/2023 162.56 cm Karlie Randall [facility] [employer] [facility] 06/03/2023 10:23:22 Social History Question Answer Notes LastModified by Organizat ion Details LastModified Time Tobacco Smoking Status Never Smoker Delia Pena null, [facility] [employer] [facility] 06/03/2023 10:12:09 What Is Your Level Of Alcohol Consumption? Occasional [id number] Information not available 01/12/2023 Sex: Unknown Functional Status None recorded. Mental Status None recorded. Family History Relationship Description Onset Age of this Age Resolved Age Notes LastModified by Organization Details LastModified Time Father Heart disease [email or web address] [id number] Not available 01/12/2023 00:49:06 Father Hypertensive disorder [id number] Not available 01/12/2023 00:49:06 Mother Heart disease [id number] Not available 01/12/2023 00:49:06 Mother Hypertensive disorder [email or web address] [id number] Not available 01/12/2023 00:49:06 Brother Heart disease [id number].610 [id number] Not available 01/12/2023 00:49:06 Medical History Condition Response BLINDNESS N KIDNEY STONES N MRSA N CARPAL TUNNEL SYNDROME N LUNG DISEASE/DISORDER N HISTORY OF DRUG ABUSE N RADIATION / CHEMOTHERAPY N COPD N SPORTS INJURY N ANKLE PAIN N BLOOD DISEASES N SCHIZOPHRENIA N SHINGLES N SHOULDER PAIN N DEPRESSION (INCLUDING POST ) N BOWEL PROBLEMS N STROKE/TIA N ULCERS N KNEE PAIN [...] HAVE YOU BEEN HOSPITALIZED OR [facility] IN THE PAST YEAR ? N BURSITIS [...] SNOMED-CT Code Diagnosis ICD10 Code Diagnosis Note [id number] Aydin Pritchard MD [facility] [place] [address] [place] [address] 01/12/2021 00:00:00 01/12/2021 14:46:55 [id number] Aydin Pritchard MD [facility] [place] [address] [place] [address] 01/26/2021 00:00:00 01/26/2021 15:38:38 [id number]|2025-03-22 07:41:00|2025-03-22 07:41:00|XMS_ITS|BKG DAEMON|External Medical Summaries|[id number]|" Progress note - 09/17/2024 Created on: March 22, 2025 FREDDIE MARTÍNEZ : 1945 Sex: Female Author Organization [facility] Address [address] [place], [place] [address] Care Team Providers Care Link Cutter Name Role Phone LISA BUTLER Unavailable [phone] Rubens Montoya Unavailable Unavailable Allergies Allergen (clinical drug ingredient) [...] mononitrate 20 MG Oral Tablet *Reorder from [facility] for eRx and Interaction Alerts* 0 Active 12 HR ranolazine 1000 MG Extended Release Oral Tablet [Ranexa] ORAL 12 HR ranolazine 1000 MG Extended Release Oral Tablet [Ranexa]Original [id number] HR ranolazine 1000 MG Extended Release Oral Tablet [Ranexa] *Reorder from [facility] for eRx and Interaction Alerts* 6 Active Lisinopril 10 MG Oral Tablet ORAL lisinopril 10 MG Oral TabletOriginal Medicationlisinopril 10 MG Oral Tablet *Reorder from [facility] for eRx and Interaction Alerts* 0 Active aspirin 81 MG Delayed Release Oral Tablet ORAL aspirin 81 MG Delayed Release Oral TabletOriginal Medicationaspirin 81 MG Delayed Release Oral Tablet *Reorder from [facility] for eRx and Interaction Alerts* 6 Active amlodipine 10 MG Oral Tablet ORAL amlodipine 10 MG Oral TabletOriginal Medicationamlodipine 10 MG Oral Tablet *Reorder from [facility] for eRx and Interaction Alerts* 0 Active pantoprazole 40 MG Delayed Release Oral Tablet ORAL pantoprazole 40 MG Delayed Release Oral TabletOriginal Medicationpantoprazole 40 MG Delayed Release Oral Tablet *Reorder from [facility] for eRx and Interaction Alerts* 0 Active Famotidine 20 MG Oral Tablet ORAL famotidine 20 MG Oral TabletOriginal Medicationfamotidine 20 MG Oral Tablet *Reorder from [facility] for eRx and Interaction Alerts* 0 Active Medrol Dosepak ORAL Medrol DosepakOr iginal MedicationMedrol Dosepak *Reorder from [facility] for eRx and Interaction Alerts* 3 Active urea 400 MG/ML Topical Cream CUTANEOUS urea 400 MG/ML Topical CreamOriginal Medicationurea 400 MG/ML Topical Cream *Reorder from [facility] for eRx and Interaction Alerts* 3 Active Furosemide 40 MG Oral Tablet ORAL furosemide 40 MG Oral TabletOriginal Medicationfurosemide 40 MG Oral Tablet *Reorder from [facility] for eRx and Interaction Alerts* 0 Active ciclopirox 80 MG/ML Topical Solution ciclopirox 80 MG/ML Topical SolutionOriginal Medicationciclopirox 80 MG/ML Topical Solution *Reorder from [facility] for eRx and Interaction Alerts* 7 Active calcium carbonate 600 MG / cholecalciferol 125 UNT Oral Tablet ORAL calcium carbonate 600 MG / cholecalciferol 125 UNT Oral TabletOriginal Medicationcalcium carbonate 600 MG / cholecalciferol 125 UNT Oral Tablet *Reorder from [facility] for eRx and Interaction Alerts* 6 Active clotrimazole 10 MG/ML Topical Solution CUTANEOUS clotrimazole 10 MG/ML Topical SolutionOriginal Medicationclotrimazole 10 MG/ML Topical Solution *Reorder from [facility] for eRx and Interaction Alerts* 4 Active levothyroxine sodium 0.2 MG Oral Tablet ORAL levothyroxine sodium 0.2 MG Oral TabletOriginal Medicationlevothyroxine sodium 0.2 MG Oral Tablet *Reorder from [facility] for eRx and Interaction Alerts* 0 Active ipratropium bromide 0.042 MG/ACTUAT Metered Dose Nasal [place] ipratropium bromide 0.042 MG/ACTUAT Metered Dose Nasal SprayOriginal Medicationipratropium bromide 0.042 MG/ACTUAT Metered Dose Nasal [place] *Reorder from [facility] for eRx and Interaction Alerts* 0 Active Encounters Encounter Location Date Provider Diagnosis [facility] [address] [place], [place] [id number] 09/17/2024 LISA SNOOK Tinea unguium B35.1 ; Pain in right toe(s) M79.674 ; Pain in left toe(s) M79.675 and Atherosclerosis of [place] arteries of extremities with intermittent claudication, bilateral [...] toe(s) (ICD-10 - M79.675) 09/17/2024 Atherosclerosis of [place] arteries of extremities with intermittent claudication, bilateral [...] sooner if problems arise Provider Name:LISA BUTLER, 01:00:00 PM, [address], [address], [id number], Progress Notes * FREDDIE MARTÍNEZ SDOB:[birth year] (79 yo F)Acc No.[id number]:09/17/2024 Patient: FREDDIE QUARLES Provider: Ramirez Butler DPM :1945 A ge:79 Y S ex:Female Date:09/17/2024 Address:[address] [place] [address] Subjective: * Chief Complaints: * Adithya olivera [...] daily aspirin., Date last seen by Dr. Montoya was June 2024., Initials LB. sample. * [...] Medicationfurosemide 40 MG Oral Tablet *Reorder from [facility] for eRx and Interaction Alerts*Famotidine 20 MG Oral Tablet ORAL , Notes to Pharmacist: famotidine 20 MG Oral TabletOriginal Medicationfamotidine 20 MG Oral Tablet *Reorder from [facility] for eRx and Interaction Alerts*Isosorbide Mononitrate 20 MG Oral Tablet ORAL , Notes to Pharmacist: isosorbide mononitrate 20 MG Oral TabletOriginal Medicationisosorbide mononitrate 20 MG Oral Tablet *Reorder from [facility] for eRx and Interaction Alerts*Lisinopril 10 MG Oral Tablet ORAL , Notes to Pharmacist: lisinopril 10 MG Oral TabletOriginal Medicationlisinopril 10 MG Oral Tablet *Reorder from [facility] for eRx and Interaction Alerts*12 HR ranolazine 1000 MG Extended Release Oral Tablet [Ranexa] ORAL , Notes to Pharmacist: 12 HR ranolazine 1000 MG Extended Release Oral Tablet [Ranexa]Original [id number] HR ranolazine 1000 MG Extended Release Oral Tablet [Ranexa] *Reorder from [facility] for eRx and Interaction Alerts*amlodipine 10 MG Oral Tablet ORAL , Notes to Pharmacist: amlodipine 10 MG Oral TabletOriginal Medicationamlodipine 10 MG Oral Tablet *Reorder from [facility] for eRx and Interaction Alerts*aspirin 81 MG Delayed Release Oral Tablet ORAL , Notes to Pharmacist: aspirin 81 MG Delayed Release Oral TabletOriginal Medicationaspirin 81 MG Delayed Release Oral Tablet *Reorder from [facility] for eRx and Interaction Alerts*calcium carbonate 600 MG / cholecalciferol 125 UNT Oral Tablet ORAL , Notes to Pharmacist: calcium carbonate 600 MG / cholecalciferol 125 UNT Oral TabletOriginal Medicationcalcium carbonate 600 MG / cholecalciferol 125 UNT Oral Tablet *Reorder from [facility] for eRx and Interaction Alerts*ciclopirox 80 MG/ML Topical Solution , Notes to Pharmacist: ciclopirox 80 MG/ML Topical SolutionOriginal Medicationciclopirox 80 MG/ML Topical Solution *Reorder from [facility] for eRx and Interaction Alerts*clotrimazole 10 MG/ML Topical Solution CUTANEOUS , Notes to Pharmacist: clotrimazole 10 MG/ML Topical SolutionOriginal Medicationclotrimazole 10 MG/ML Topical Solution *Reorder from [facility] for eRx and Interaction Alerts*ipratropium bromide 0.042 MG/ACTUAT Metered Dose Nasal [place] , Notes to Pharmacist: ipratropium bromide 0.042 MG/ACTUAT Metered Dose Nasal SprayOriginal Medicationipratropium bromide 0.042 MG/ACTUAT Metered Dose Nasal [place] *Reorder from [facility] for eRx and Interaction Alerts*levothyroxine sodium 0.2 MG Oral Tablet ORAL , Notes to Pharmacist: levothyroxine sodium 0.2 MG Oral TabletOriginal Medicationlevothyroxine sodium 0.2 MG Oral Tablet *Reorder from [facility] for eRx and Interaction Alerts*Medrol Dosepak ORAL , Notes to Pharmacist: Medrol DosepakOriginal MedicationMedrol Dosepak *Reorder from [facility] for eRx and Interaction Alerts*pantoprazole 40 MG Delayed Release Oral Tablet ORAL , Notes to Pharmacist: pantoprazole 40 MG Delayed Release Oral TabletOriginal Medicationpantoprazole 40 MG Delayed Release Oral Tablet *Reorder from [facility] for eRx and Interaction Alerts*urea 400 MG/ML Topical Cream CUTANEOUS , Notes to Pharmacist: urea 400 MG/ML Topical CreamOriginal Medicationurea 400 MG/ML Topical Cream *Reorder from [facility] for eRx and Interaction Alerts*Medication List reviewed and reconciled with the patientTaking Furosemide 40 MG Oral Tablet ORAL , Notes to Pharmacist: furosemide 40 MG Oral TabletOriginal Medicationfurosemide 40 MG Oral Tablet *Reorder from [facility] for eRx and Interaction Alerts*Taking Famotidine 20 MG Oral Tablet ORAL , Notes to Pharmacist: famotidine 20 MG Oral TabletOriginal Medicationfamotidine 20 MG Oral Tablet *Reorder from [facility] for eRx and Interaction Alerts*Taking Isosorbide Mononitrate 20 MG Oral Tablet ORAL , Notes to Pharmacist: isosorbide mononitrate 20 MG Oral TabletOriginal Medicationisosorbide mononitrate 20 MG Oral Tablet *Reorder from [facility] for eRx and Interaction Alerts*Taking Lisinopril 10 MG Oral Tablet ORAL , Notes to Pharmacist: lisinopril 10 MG Oral TabletOriginal Medicationlisinopril 10 MG Oral Tablet *Reorder from [facility] for eRx and Interaction Alerts*Taking 12 HR ranolazine 1000 MG Extended Release Oral Tablet [Ranexa] ORAL , Notes to Pharmacist: 12 HR ranolazine 1000 MG Extended Release Oral Tablet [Ranexa]Original [id number] HR ranolazine 1000 MG Extended Release Oral Tablet [Ranexa] *Reorder from [facility] for eRx and Interaction Alerts*Taking amlodipine 10 MG Oral Tablet ORAL , Notes to Pharmacist: amlodipine 10 MG Oral TabletOriginal Medicationamlodipine 10 MG Oral Tablet *Reorder from [facility] for eRx and Interaction Alerts*Taking aspirin 81 MG Delayed Release Oral Tablet ORAL , Notes to Pharmacist: aspirin 81 MG Delayed Release Oral TabletOriginal Medicationaspirin 81 MG Delayed Release Oral Tablet *Reorder from [facility] for eRx and Interaction Alerts*Taking calcium carbonate 600 MG / cholecalciferol 125 UNT Oral Tablet ORAL , Notes to Pharmacist: calcium carbonate 600 MG / cholecalciferol 125 UNT Oral TabletOriginal Medicationcalcium carbonate 600 MG / cholecalciferol 125 UNT Oral Tablet *Reorder from [facility] for eRx and Interaction Alerts*Taking ciclopirox 80 MG/ML Topical Solution , Notes to Pharmacist: ciclopirox 80 MG/ML Topical SolutionOriginal Medicationciclopirox 80 MG/ML Topical Solution *Reorder from [facility] for eRx and Interaction Alerts*Taking clotrimazole 10 MG/ML Topical Solution CUTANEOUS , Notes to Pharmacist: clotrimazole 10 MG/ML Topical SolutionOriginal Medicationclotrimazole 10 MG/ML Topical Solution *Reorder from [facility] for eRx and Interaction Alerts*Taking ipratropium bromide 0.042 MG/ACTUAT Metered Dose Nasal [place] , Notes to Pharmacist: ipratropium bromide 0.042 MG/ACTUAT Metered Dose Nasal SprayOriginal Medicationipratropium bromide 0.042 MG/ACTUAT Metered Dose Nasal [place] *Reorder from [facility] for eRx and Interaction Alerts*Taking levothyroxine sodium 0.2 MG Oral Tablet ORAL , Notes to Pharmacist: levothyroxine sodium 0.2 MG Oral TabletOriginal Medicationlevothyroxine sodium 0.2 MG Oral Tablet *Reorder from [facility] for eRx and Interaction Alerts*Taking Medrol Dosepak ORAL , Notes to Pharmacist: Medrol DosepakOriginal MedicationMedrol Dosepak *Reorder from [facility] for eRx and Interaction Alerts*Taking pantoprazole 40 MG Delayed Release Oral Tablet ORAL , Notes to Pharmacist: pantoprazole 40 MG Delayed Release Oral TabletOriginal Medicationpantoprazole 40 MG Delayed Release Oral Tablet *Reorder from [facility] for eRx and Interaction Alerts*Taking urea 400 MG/ML Topical Cream CUTANEOUS , Notes to Pharmacist: urea 400 MG/ML Topical CreamOriginal Medicationurea 400 MG/ML Topical Cream *Reorder from [facility] for eRx and Interaction Alerts*Medication List [...] subungual debris. They are painful to palpation. V ascular: Dorsalis pedis pulse: 1 /4 b ilateral. Posterior tibial pulse: 0 /4 b ilateral. Capillary refill: g reater than 3 seconds. Edema: N o edema, bilateral. N eurologic: Gross sensation G ross sensation is intact to light touch. M usculoskeletal: Muscle Strength M uscle strength is 5/5 in regards to dorsiflexion, plantarflexion, inversion, and eversion in bilateral lower extremities. Assessment: * Assessment: 1. T inea unguium - B35.1 (Primary) 2 . P ain in right toe(s) - M79.674 3. P ain in left toe(s) - M79.675 4 . 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 Modifiers: Q8 * ER PROGRAM DIRECTOR Sign off status: Completed true * Provider: Ramirez Butler DPM Date: 11/17/2023 Generated for Santi torres/[place] on: 0 03/22/2025 07:41 AM CDT History and Physical Notes * [...] daily aspirin., Date last seen by Dr. Montoya was June 2024., Initials LB sample Examination [...] well developed, well groomed and well nourished "
--- OUTSIDE RECORDS SUMMARY | 2025-03-22 07:42 | XMS_ITS ---
Author Organization [facility] Address [address] [place], [place] [id number] Care Team Providers Care Business Operations Specialist Name Role Phone LISA BUTLER Unavailable [phone] Janeth Viramontes Unavailable Unavailable Allergies Allergen (clinical [...] sodium 0.2 MG Oral Tablet *Reorder from [facility] for eRx and Interaction Alerts* 0 Active Medrol Dosepak ORAL Medrol DosepakOr iginal MedicationMedrol Dosepak *Reorder from [facility] for eRx and Interaction Alerts* 3 Active ciclopirox 80 MG/ML Topical Solution ciclopirox 80 MG/ML Topical SolutionOriginal Medicationciclopirox 80 MG/ML Topical Solution *Reorder from [facility] for eRx and Interaction Alerts* 7 Active clotrimazole 10 MG/ML Topical Solution CUTANEOUS clotrimazole 10 MG/ML Topical SolutionOriginal Medicationclotrimazole 10 MG/ML Topical Solution *Reorder from [facility] for eRx and Interaction Alerts* 4 Active ipratropium bromide 0.042 MG/ACTUAT Metered Dose Nasal [place] ipratropium bromide 0.042 MG/ACTUAT Metered Dose Nasal SprayOriginal Medicationipratropium bromide 0.042 MG/ACTUAT Metered Dose Nasal [place] *Reorder from [facility] for eRx and Interaction Alerts* 0 Active Lisinopril 10 MG Oral Tablet ORAL lisinopril 10 MG Oral TabletOriginal Medicationlisinopril 10 MG Oral Tablet *Reorder from [facility] for eRx and Interaction Alerts* 0 Active 12 HR ranolazine 1000 MG Extended Release Oral Tablet [Ranexa] ORAL 12 HR ranolazine 1000 MG Extended Release Oral Tablet [Ranexa]Original Miccmrapol67 HR ranolazine 1000 MG Extended Release Oral Tablet [Ranexa] *Reorder from [facility] for eRx and Interaction Alerts* 6 Active amlodipine 10 MG Oral Tablet ORAL amlodipine 10 MG Oral TabletOriginal Medicationamlodipine 10 MG Oral Tablet *Reorder from [facility] for eRx and Interaction Alerts* 0 Active aspirin 81 MG Delayed Release Oral Tablet ORAL aspirin 81 MG Delayed Release Oral TabletOriginal Medicationaspirin 81 MG Delayed Release Oral Tablet *Reorder from [facility] for eRx and Interaction Alerts* 6 Active calcium carbonate 600 MG / cholecalciferol 125 UNT Oral Tablet ORAL calcium carbonate 600 MG / cholecalciferol 125 UNT Oral TabletOriginal Medicationcalcium carbonate 600 MG / cholecalciferol 125 UNT Oral Tablet *Reorder from [facility] for eRx and Interaction Alerts* 6 Active urea 400 MG/ML Topical Cream CUTANEOUS urea 400 MG/ML Topical CreamOriginal Medicationurea 400 MG/ML Topical Cream *Reorder from [facility] for eRx and Interaction Alerts* 3 Active pantoprazole 40 MG Delayed Release Oral Tablet ORAL pantoprazole 40 MG Delayed Release Oral TabletOriginal Medicationpantoprazole 40 MG Delayed Release Oral Tablet *Reorder from [facility] for eRx and Interaction Alerts* 0 Active Furosemide 40 MG Oral Tablet ORAL furosemide 40 MG Oral TabletOriginal Medicationfurosemide 40 MG Oral Tablet *Reorder from [facility] for eRx and Interaction Alerts* 0 Active Famotidine 20 MG Oral Tablet ORAL famotidine 20 MG Oral TabletOriginal Medicationfamotidine 20 MG Oral Tablet *Reorder from [facility] for eRx and Interaction Alerts* 0 Active Isosorbide Mononitrate 20 MG Oral Tablet ORAL isosorbide mononitrate 20 MG Oral TabletOriginal Medicationisosorbide mononitrate 20 MG Oral Tablet *Reorder from [facility] for eRx and Interaction Alerts* 0 Active Encounters Encounter Location Date Provider Diagnosis [facility] [address] [place] [id number] 12/17/2024 LISA KAILEYK Tinea unguium B35.1 ; Pain in right foot M79.671 ; Pain in left foot M79.672 ; Atherosclerosis of paimi[place]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 Provider Name:LISA BUTLER, 01:00:00 PM, [address], [address], [phone], Progress Notes * FREDDIE MARTÍNEZ SDOB:[birth year] (79 yo F)Acc No.[id number]:12/17/2024 Patient: Juice KHALIDAFREDDIE TILLMAN Provider: Ramirez Butler DPM :1945 A ge:79 Y S ex:Female Date:12/17/2024 Address:[address] [place] [address] Subjective: * Chief Complaints: * P jarod [...] seen by Dr. Viramontes was 11/2024., Initials [facility]. * ROS: G eneral / Constitutional: Patient denies c hills, fever, weight loss. M usculoskeletal: Patient denies w eakness, broken foot bone. P eripheral Vascular: Patient denies p ain [...] Medicationfurosemide 40 MG Oral Tablet *Reorder from [facility] for eRx and Interaction Alerts*Famotidine 20 MG Oral Tablet ORAL , Notes to Pharmacist: famotidine 20 MG Oral TabletOriginal Medicationfamotidine 20 MG Oral Tablet *Reorder from [facility] for eRx and Interaction Alerts*Isosorbide Mononitrate 20 MG Oral Tablet ORAL , Notes to Pharmacist: isosorbide mononitrate 20 MG Oral TabletOriginal Medicationisosorbide mononitrate 20 MG Oral Tablet *Reorder from [facility] for eRx and Interaction Alerts*Lisinopril 10 MG Oral Tablet ORAL , Notes to Pharmacist: lisinopril 10 MG Oral TabletOriginal Medicationlisinopril 10 MG Oral Tablet *Reorder from [facility] for eRx and Interaction Alerts*12 HR ranolazine 1000 MG Extended Release Oral Tablet [Ranexa] ORAL , Notes to Pharmacist: 12 HR ranolazine 1000 MG Extended Release Oral Tablet [Ranexa]Original [id number] HR ranolazine 1000 MG Extended Release Oral Tablet [Ranexa] *Reorder from [facility] for eRx and Interaction Alerts*amlodipine 10 MG Oral Tablet ORAL , Notes to Pharmacist: amlodipine 10 MG Oral TabletOriginal Medicationamlodipine 10 MG Oral Tablet *Reorder from [facility] for eRx and Interaction Alerts*aspirin 81 MG Delayed Release Oral Tablet ORAL , Notes to Pharmacist: aspirin 81 MG Delayed Release Oral TabletOriginal Medicationaspirin 81 MG Delayed Release Oral Tablet *Reorder from [facility] for eRx and Interaction Alerts*calcium carbonate 600 MG / cholecalciferol 125 UNT Oral Tablet ORAL , Notes to Pharmacist: calcium carbonate 600 MG / cholecalciferol 125 UNT Oral TabletOriginal Medicationcalcium carbonate 600 MG / cholecalciferol 125 UNT Oral Tablet *Reorder from [facility] for eRx and Interaction Alerts*ciclopirox 80 MG/ML Topical Solution , Notes to Pharmacist: ciclopirox 80 MG/ML Topical SolutionOriginal Medicationciclopirox 80 MG/ML Topical Solution *Reorder from [facility] for eRx and Interaction Alerts*clotrimazole 10 MG/ML Topical Solution CUTANEOUS , Notes to Pharmacist: clotrimazole 10 MG/ML Topical SolutionOriginal Medicationclotrimazole 10 MG/ML Topical Solution *Reorder from [facility] for eRx and Interaction Alerts*ipratropium bromide 0.042 MG/ACTUAT Metered Dose Nasal [place] , Notes to Pharmacist: ipratropium bromide 0.042 MG/ACTUAT Metered Dose Nasal SprayOriginal Medicationipratropium bromide 0.042 MG/ACTUAT Metered Dose Nasal [place] *Reorder from [facility] for eRx and Interaction Alerts*levothyroxine sodium 0.2 MG Oral Tablet ORAL , Notes to Pharmacist: levothyroxine sodium 0.2 MG Oral TabletOriginal Medicationlevothyroxine sodium 0.2 MG Oral Tablet *Reorder from [facility] for eRx and Interaction Alerts*Medrol Dosepak ORAL , Notes to Pharmacist: Medrol DosepakOriginal MedicationMedrol Dosepak *Reorder from [facility] for eRx and Interaction Alerts*pantoprazole 40 MG Delayed Release Oral Tablet ORAL , Notes to Pharmacist: pantoprazole 40 MG Delayed Release Oral TabletOriginal Medicationpantoprazole 40 MG Delayed Release Oral Tablet *Reorder from [facility] for eRx and Interaction Alerts*urea 400 MG/ML Topical Cream CUTANEOUS , Notes to Pharmacist: urea 400 MG/ML Topical CreamOriginal Medicationurea 400 MG/ML Topical Cream *Reorder from [facility] for eRx and Interaction Alerts*Medication List reviewed and reconciled with the patientTaking Furosemide 40 MG Oral Tablet ORAL , Notes to Pharmacist: furosemide 40 MG Oral TabletOriginal Medicationfurosemide 40 MG Oral Tablet *Reorder from [facility] for eRx and Interaction Alerts*Taking Famotidine 20 MG Oral Tablet ORAL , Notes to Pharmacist: famotidine 20 MG Oral TabletOriginal Medicationfamotidine 20 MG Oral Tablet *Reorder from [facility] for eRx and Interaction Alerts*Taking Isosorbide Mononitrate 20 MG Oral Tablet ORAL , Notes to Pharmacist: isosorbide mononitrate 20 MG Oral TabletOriginal Medicationisosorbide mononitrate 20 MG Oral Tablet *Reorder from [facility] for eRx and Interaction Alerts*Taking Lisinopril 10 MG Oral Tablet ORAL , Notes to Pharmacist: lisinopril 10 MG Oral TabletOriginal Medicationlisinopril 10 MG Oral Tablet *Reorder from [facility] for eRx and Interaction Alerts*Taking 12 HR ranolazine 1000 MG Extended Release Oral Tablet [Ranexa] ORAL , Notes to Pharmacist: 12 HR ranolazine 1000 MG Extended Release Oral Tablet [Ranexa]Original [id number] HR ranolazine 1000 MG Extended Release Oral Tablet [Ranexa] *Reorder from [facility] for eRx and Interaction Alerts*Taking amlodipine 10 MG Oral Tablet ORAL , Notes to Pharmacist: amlodipine 10 MG Oral TabletOriginal Medicationamlodipine 10 MG Oral Tablet *Reorder from [facility] for eRx and Interaction Alerts*Taking aspirin 81 MG Delayed Release Oral Tablet ORAL , Notes to Pharmacist: aspirin 81 MG Delayed Release Oral TabletOriginal Medicationaspirin 81 MG Delayed Release Oral Tablet *Reorder from [facility] for eRx and Interaction Alerts*Taking calcium carbonate 600 MG / cholecalciferol 125 UNT Oral Tablet ORAL , Notes to Pharmacist: calcium carbonate 600 MG / cholecalciferol 125 UNT Oral TabletOriginal Medicationcalcium carbonate 600 MG / cholecalciferol 125 UNT Oral Tablet *Reorder from [facility] for eRx and Interaction Alerts*Taking ciclopirox 80 MG/ML Topical Solution , Notes to Pharmacist: ciclopirox 80 MG/ML Topical SolutionOriginal Medicationciclopirox 80 MG/ML Topical Solution *Reorder from [facility] for eRx and Interaction Alerts*Taking clotrimazole 10 MG/ML Topical Solution CUTANEOUS , Notes to Pharmacist: clotrimazole 10 MG/ML Topical SolutionOriginal Medicationclotrimazole 10 MG/ML Topical Solution *Reorder from [facility] for eRx and Interaction Alerts*Taking ipratropium bromide 0.042 MG/ACTUAT Metered Dose Nasal [place] , Notes to Pharmacist: ipratropium bromide 0.042 MG/ACTUAT Metered Dose Nasal SprayOriginal Medicationipratropium bromide 0.042 MG/ACTUAT Metered Dose Nasal [place] *Reorder from [facility] for eRx and Interaction Alerts*Taking levothyroxine sodium 0.2 MG Oral Tablet ORAL , Notes to Pharmacist: levothyroxine sodium 0.2 MG Oral TabletOriginal Medicationlevothyroxine sodium 0.2 MG Oral Tablet *Reorder from [facility] for eRx and Interaction Alerts*Taking Medrol Dosepak ORAL , Notes to Pharmacist: Medrol DosepakOriginal MedicationMedrol Dosepak *Reorder from [facility] for eRx and Interaction Alerts*Taking pantoprazole 40 MG Delayed Release Oral Tablet ORAL , Notes to Pharmacist: pantoprazole 40 MG Delayed Release Oral TabletOriginal Medicationpantoprazole 40 MG Delayed Release Oral Tablet *Reorder from [facility] for eRx and Interaction Alerts*Taking urea 400 MG/ML Topical Cream CUTANEOUS , Notes to Pharmacist: urea 400 MG/ML Topical CreamOriginal Medicationurea 400 MG/ML Topical Cream *Reorder from [facility] for eRx and Interaction Alerts*Medication List [...] - M79.672 4 . A therosclerosis of [place] arteries of extremities with intermittent claudication, bilateral [...] SKIN LESIONS, 2 TO 4, Modifiers: Q8 47766 DEBRIDE NAIL, 6 OR MORE, Modifiers: 59 , Q8 * Follow Up: 1 0 - 12 weeks (Reason: At-Risk Foot care, sooner if problems develop.) * Billing Information: * Visit Code: * Procedure Codes: 15161 TRIM SKIN LESIONS, 2 TO 4. Modifiers: Q8 74926 DEBRIDE NAIL, 6 OR MORE. Modifiers: 59, Q8 * Y ENGINEER Sign off status: Completed true * Provider: Ramirez Butler DPM Date: 0 12/17/2024 Generated for Santi torres/Milton/Kel[place] on: 0 03/22/2025 [...]
--- OUTSIDE RECORDS SUMMARY | 2025-03-22 07:42 | XMS_ITS | Referral Summary ---
Author Organization [facility] [address] [place] [address] Address [address] [facility] [address] [place] [address] Care Team Providers Care Fermentation Engineer Name Role Phone Janeth Viramontes MD Primary Care Provider Encounters Date Type Department Care Team Description 02/08/2025 1:00 PM CDT Office Visit [facility] [address] [facility] [address] [place] [address] Christine Mendoza NP Coronary artery disease of [place] artery of [place] heart with stable angina pectoris (Primary Dx); Primary hypertension; JULISSA (obstructive sleep apnea) from Last 3 Months Allergies Active Allergy Reactions Criticality Noted Date Comments Adhesive Tape-Silicones Rash Medium Bacitracin Cefadroxil Hives,Rash Medium Latex Rash Medium Neomycin Polymyxin B Medications levothyroxine (SYNTHROID, LEVOTHROID) 200 mcg tablet take 1 by Oral route once a day ecxept 1/2 a tablet sat and sun 0 0 04/16/[address] (PROTONIX) 40 mg EC tablet take 1 tablet by oral route every day 0 0 04/16/20 14 Active PARoxetine (PAXIL) 40 mg tablet Take 1 tablet (40 mg total) by mouth every morning Active VIT C/E/ZN/COPPR/SASHA TEIN/ZEAXAN (PRESERVISION AREDS 2 ORAL) Take by mouth. A ctive flaxseed oil oil Active fluticasone propionate (FLONASE) 50 mcg/actuation nasal spray Administer 1 spray into each nostril daily Active ipratropium/alb uterol sulfate (IPRATROPIUM-AL BUTEROL INHAL) Inhale Activ e famotidine (PEPCID) 20 mg tablet Take 1 tablet (20 mg total) by mouth nightly as needed for heartburn Active aspirin 81 mg enteric coated tabletIndicatio ns:prevention of thrombosis Take 1 tablet (81 mg total) by mouth daily 0 04/02/20 20 Active cyanocobalamin (Vitamin B-12) 1,000 mcg sublingual tablet Take 1 tablet (1,000 mcg total) by mouth daily Active cholecalciferol (VITAMIN D-3) 00218 unit capsule Take 1 capsule (10,000 Units total) by mouth daily Active zoledronic acid/mannitol-w ater (RECLAST IV) Infuse into a venous catheter Infusion Active latanoprost (XALATAN) 0.005 % ophthalmic solution 01/09/20 24 Active carboxymethylce llulose sodium (REFRESH PLUS OPHT) Administer into affected eye(s) Active hydroCHLOROthia zide (HYDRODIURIL) 25 mg tablet Take 1 tablet (25 mg total) by mouth daily 10/13/20 22 Active ipratropium (ATROVENT) 42 mcg (0.06 %) nasal spray USE 2 SPRAY(S) IN EACH NOSTRIL TWICE DAILY 02/23/20 24 Active losartan (COZAAR) 100 mg tablet Take 1 tablet (100 mg total) by mouth daily Active furosemide (LASIX) 40 mg tabletIndicatio ns:OWENS (dyspnea on exertion) Take 1.5 tablets (60 mg total) by mouth daily 03/02/20 24 Active gabapentin (NEURONTIN) 100 mg capsule Take 1 capsule (100 mg total) by mouth 3 (three) times a day 05/21/20 24 Active isosorbide mononitrate ER (IMDUR) 30 mg 24 hr tablet Take 3 tablets by mouth once daily 270 tablet 1 01/03/20 25 Active pravastatin (PRAVACHOL) 40 mg tablet Take 1 tablet by mouth once daily 90 tablet 1 01/15/20 25 Active budesonide-form oteroL (SYMBICORT) 160-4.5 mcg/actuation inhaler Inhale 2 puffs 2 (two) times a day Rinse mouth with water after use. Do not swallow. Active nitroglycerin (NITROSTAT) 0.4 mg SL tabletIndicatio ns:Coronary artery disease of [place] artery of [place] heart with stable angina pectoris DISSOLVE ONE TABLET UNDER THE TONGUE EVERY 5 MINUTES NEEDED FOR CHEST PAIN. 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 Abdominal pain 04/01/2020 Elevated amylase 04/01/2020 Generalized abdominal pain 02/13/2020 Overview (04/01/2020): Added automatically from request for surgery [id number] Palpitations 01/09/2020 Chronic fatigue 01/09/2020 Preoperative cardiovascular examination 07/04/20 19 OWENS (dyspnea on exertion) 04/20/2018 Orthostatic hypotension 10/19/2016 Overview (02/18/2017): Orthostatic hypotension 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 (02/18/2017): Coronary vasospasm Thoracic back pain 12/29/2015 Overview (02/18/2017): Thoracic back pain, unspecified back pain laterality Coronary arteriosclerosis in stockbridge artery 11/04 Overview (02/18/2017): Coronary artery disease involving stockbridge coronary artery of stockbridge heart with other form of angina pectoris Left ventricular dilatation 11/04/2015 Overview (02/18/2017): LVE (left ventricular enlargement) Coronary artery disease invo lving [place] coronary artery of [place] heart with angina pectoris with documented spasm [...] on file Legal Sex Female 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 Gender Identity Female 05/06/2020 3:45 PM CDT Sexual Orientation Straight 01/31/2020 9: 43 AM CDT Last Filed Vital Signs Vital Sign Reading Time Taken Comments Blood Pressure 128/68 02/08/2025 12:51 PM CDT Pulse 76 02/08/2025 12:51 PM CDT Temperature 36.8 C (98.3 F) 04/02/2020 12:00 PM CDT Respiratory Rate 16 11/10/2021 9:02 AM PICK PULLING MACHINE TENDER Oxygen Saturation 95% 02/08/2025 12: 51 PM CDT Inhaled Oxygen Concentration - - Weight 96.9 kg (213 lb 11.2 oz) 025 12:51 PM CDT Height 167.6 cm (5' 6 ) 02/08/2025 12:5 1 PM CDT Body Mass Index 34.49 02/08/2025 12:51 PM CDT Plan of Treatment Not on file Medical Devices Explanted Type Area Cap Maker Device Identifier Shelf Expiration Date Model / Serial / Lot [employer] [id number] Chris Flexi-Stent 7fr 3cm Small Pigtail Flexible .035in Stent - [id number] Implanted:Qty : 1 on 03/31/2020 by Ricky Jeter MD at Explanted:Qty : 1 on 04/02/2020 by Ricky Jeter MD at Stent N/A: Pancreas [employer] 09/13/2024 [id number] / / [id number] [employer] [id number] Loraine Viabil 10mm 8.5fr 6cm 200cm Fully Covered Self Expand Pull - [id number] - [id number] Implanted:Qty : 1 on 03/31/2020 by Ricky Jeter MD at Explanted:Qty : 1 on 04/02/2020 by Ricky Jeter MD at Stent N/A: Bile Duct [employer] Purnima 12/20/2022 [id number] / [id number] / Insurance MEDICARE MEDICARE [facility] MEDICARE BLUE CROSS MEDICARE SUPPLEMENT Advance Directives For more information, please contact: [phone] * Full Code (Latest Code Status on File) Date Activated Date Inactivated Comments 03/31/2020 8:47 AM 04/02/2020 5:04 PM Care Teams Fermentation Engineer Relationship Specialty Start Date End Date Janeth Viramontes MD [address] [place] [address] PCP - General 09/16/11
--- OUTSIDE RECORDS SUMMARY | 2025-03-22 07:42 | XMS_ITS ---
Author Organization [facility] Address [address] [place], [place] [address] Care Team Providers Care Kiln Placer Name Role Phone LISA BUTLER Unavailable [phone] Janeth Viramontes Unavailable Unavailable Allergies Allergen (clinical [...] Duration) Notes Start Date End Date Status 12 HR ranolazine 1000 MG Extended Release Oral Tablet [Ranexa] ORAL 12 HR ranolazine 1000 MG Extended Release Oral Tablet [Ranexa]Original [id number] HR ranolazine 1000 MG Extended Release Oral Tablet [Ranexa] *Reorder from [facility] for eRx and Interaction Alerts* 6 Active calcium carbonate 600 MG / cholecalciferol 125 UNT Oral Tablet ORAL calcium carbonate 600 MG / cholecalciferol 125 UNT Oral TabletOriginal Medicationcalcium carbonate 600 MG / cholecalciferol 125 UNT Oral Tablet *Reorder from [facility] for eRx and Interaction Alerts* 6 Active ciclopirox 80 MG/ML Topical Solution ciclopirox 80 MG/ML Topical SolutionOriginal Medicationciclopirox 80 MG/ML Topical Solution *Reorder from [facility] for eRx and Interaction Alerts* 7 Active amlodipine 10 MG Oral Tablet ORAL amlodipine 10 MG Oral TabletOriginal Medicationamlodipine 10 MG Oral Tablet *Reorder from [facility] for eRx and Interaction Alerts* 0 Active aspirin 81 MG Delayed Release Oral Tablet ORAL aspirin 81 MG Delayed Release Oral TabletOriginal Medicationaspirin 81 MG Delayed Release Oral Tablet *Reorder from [facility] for eRx and Interaction Alerts* 6 Active Lisinopril 10 MG Oral Tablet ORAL lisinopril 10 MG Oral TabletOriginal Medicationlisinopril 10 MG Oral Tablet *Reorder from [facility] for eRx and Interaction Alerts* 0 Active urea 400 MG/ML Topical Cream CUTANEOUS urea 400 MG/ML Topical CreamOriginal Medicationurea 400 MG/ML Topical Cream *Reorder from [facility] for eRx and Interaction Alerts* 3 Active Famotidine 20 MG Oral Tablet ORAL famotidine 20 MG Oral TabletOriginal Medicationfamotidine 20 MG Oral Tablet *Reorder from [facility] for eRx and Interaction Alerts* 0 Active Isosorbide Mononitrate 20 MG Oral Tablet ORAL isosorbide mononitrate 20 MG Oral TabletOriginal Medicationisosorbide mononitrate 20 MG Oral Tablet *Reorder from [facility] for eRx and Interaction Alerts* 0 Active Furosemide 40 MG Oral Tablet ORAL furosemide 40 MG Oral TabletOriginal Medicationfurosemide 40 MG Oral Tablet *Reorder from [facility] for eRx and Interaction Alerts* 0 Active levothyroxine sodium 0.2 MG Oral Tablet ORAL levothyroxine sodium 0.2 MG Oral TabletOriginal Medicationlevothyroxine sodium 0.2 MG Oral Tablet *Reorder from [facility] for eRx and Interaction Alerts* 0 Active Medrol Dosepak ORAL Medrol DosepakOr iginal MedicationMedrol Dosepak *Reorder from [facility] for eRx and Interaction Alerts* 3 Active pantoprazole 40 MG Delayed Release Oral Tablet ORAL pantoprazole 40 MG Delayed Release Oral TabletOriginal Medicationpantoprazole 40 MG Delayed Release Oral Tablet *Reorder from [facility] for eRx and Interaction Alerts* 0 Active clotrimazole 10 MG/ML Topical Solution CUTANEOUS clotrimazole 10 MG/ML Topical SolutionOriginal Medicationclotrimazole 10 MG/ML Topical Solution *Reorder from [facility] for eRx and Interaction Alerts* 4 Active ipratropium bromide 0.042 MG/ACTUAT Metered Dose Nasal [place] ipratropium bromide 0.042 MG/ACTUAT Metered Dose Nasal SprayOriginal Medicationipratropium bromide 0.042 MG/ACTUAT Metered Dose Nasal [place] *Reorder from [facility] for eRx and Interaction Alerts* 0 Active Encounters Encounter Location Date Provider Diagnosis [facility] [address] [place], [place] [id number] 03/18/2025 LISA SNOOK Tinea unguium B35.1 ; Pain in right foot M79.671 ; Pain in left foot M79.672 ; Atherosclerosis of [place] arteries of extremities with intermittent claudication, bilateral legs I70.213 and Acquired keratosis [keratoderma] palmaris et plantaris L85.1 Assessments Encounter Date Diagnosis (ICD Code) Assessment Notes Treatment Notes Treatment Clinical Notes Section Notes 03/18/2025 Tinea unguium (ICD-10 - B35.1) Nails 1-5 Bilateral were debrided extensively with nail nippers and emery board, reducing length and girth to pink healthy tissue with any subungual debris and necrotic tissue removed 03/18/2025 Pain in right foot (ICD-10 - M79.671) 03/18/2025 Pain in left foot (ICD-10 - M79.672) 03/18/2025 Atherosclerosis of [place] arteries of extremities with intermittent claudication, bilateral legs (ICD-10 - I70.213) 03/18/2025 Acquired keratosis [keratoderma] palmaris et plantaris (ICD-10 [...] Name:LISA BUTLER, 01:00:00 PM, [address], [address], [id number], Progress Notes * JENNIFERSAVANNA TILLMANARA SDOB:[birth year] (79 yo F)Acc No.[id number]:03/18/2025 Patient: FREDDIE QUARLES Provider: Ramirez Butler DPM :1945 A ge:79 Y S ex:Female Date:03/18/2025 Address:[address] [place] [address] Subjective: * Chief Complaints: * 1 . [...] Date last seen by Dr. Viramontes was 12/2024., Initials mf. * Medical History: * Family History: F ather: PRN - [...] Status : Never smoked. * Medications: T aking Furosemide 40 MG Oral Tablet ORAL , Notes to Pharmacist: furosemide 40 MG Oral TabletOriginal Medicationfurosemide 40 MG Oral Tablet *Reorder from [facility] for eRx and Interaction Alerts*, Taking Famotidine 20 MG Oral Tablet ORAL , Notes to Pharmacist: famotidine 20 MG Oral TabletOriginal Medicationfamotidine 20 MG Oral Tablet *Reorder from [facility] for eRx and Interaction Alerts*, Taking Isosorbide Mononitrate 20 MG Oral Tablet ORAL , Notes to Pharmacist: isosorbide mononitrate 20 MG Oral TabletOriginal Medicationisosorbide mononitrate 20 MG Oral Tablet *Reorder from [facility] for eRx and Interaction Alerts*, Taking Lisinopril 10 MG Oral Tablet ORAL , Notes to Pharmacist: lisinopril 10 MG Oral TabletOriginal Medicationlisinopril 10 MG Oral Tablet *Reorder from [facility] for eRx and Interaction Alerts*, Taking 12 HR ranolazine 1000 MG Extended Release Oral Tablet [Ranexa] ORAL , Notes to Pharmacist: 12 HR ranolazine 1000 MG Extended Release Oral Tablet [Ranexa]Original [id number] HR ranolazine 1000 MG Extended Release Oral Tablet [Ranexa] *Reorder from [facility] for eRx and Interaction Alerts*, Taking amlodipine 10 MG Oral Tablet ORAL , Notes to Pharmacist: amlodipine 10 MG Oral TabletOriginal Medicationamlodipine 10 MG Oral Tablet *Reorder from [facility] for eRx and Interaction Alerts*, Taking aspirin 81 MG Delayed Release Oral Tablet ORAL , Notes to Pharmacist: aspirin 81 MG Delayed Release Oral TabletOriginal Medicationaspirin 81 MG Delayed Release Oral Tablet *Reorder from [facility] for eRx and Interaction Alerts*, Taking calcium carbonate 600 MG / cholecalciferol 125 UNT Oral Tablet ORAL , Notes to Pharmacist: calcium carbonate 600 MG / cholecalciferol 125 UNT Oral TabletOriginal Medicationcalcium carbonate 600 MG / cholecalciferol 125 UNT Oral Tablet *Reorder from [facility] for [facility]Rx and Interaction Alerts*, Taking ciclopirox 80 MG/ML Topical Solution , Notes to Pharmacist: ciclopirox 80 MG/ML Topical SolutionOriginal Medicationciclopirox 80 MG/ML Topical Solution *Reorder from [facility] for [facility]Rx and Interaction Alerts*, Taking clotrimazole 10 MG/ML Topical Solution CUTANEOUS , Notes to Pharmacist: clotrimazole 10 MG/ML Topical SolutionOriginal Medicationclotrimazole 10 MG/ML Topical Solution *Reorder from [facility] for eRx and Interaction Alerts*, Taking ipratropium bromide 0.042 MG/ACTUAT Metered Dose Nasal [place] , Notes to Pharmacist: ipratropium bromide 0.042 MG/ACTUAT Metered Dose Nasal SprayOriginal Medicationipratropium bromide 0.042 MG/ACTUAT Metered Dose Nasal [place] *Reorder from [facility] for eRx and Interaction Alerts*, Taking levothyroxine sodium 0.2 MG Oral Tablet ORAL , Notes to Pharmacist: levothyroxine sodium 0.2 MG Oral TabletOriginal Medicationlevothyroxine sodium 0.2 MG Oral Tablet *Reorder from [facility] for [facility]Rx and Interaction Alerts*, Taking Medrol Dosepak ORAL , Notes to Pharmacist: Medrol DosepakOriginal MedicationMedrol Dosepak *Reorder from [facility] for eRx and Interaction Alerts*, Taking pantoprazole 40 MG Delayed Release Oral Tablet ORAL , Notes to Pharmacist: pantoprazole 40 MG Delayed Release Oral TabletOriginal Medicationpantoprazole 40 MG Delayed Release Oral Tablet *Reorder from [facility] for [facility]Rx and Interaction Alerts*, Taking urea 400 MG/ML Topical Cream CUTANEOUS , Notes to Pharmacist: urea 400 MG/ML Topical CreamOriginal Medicationurea 400 MG/ML Topical Cream *Reorder from [facility] for eRx and Interaction Alerts*, Medication [...] - M79.672 4 . A therosclerosis of [place] arteries of extremities with intermittent claudication, bilateral [...] Electronic signature of LISA BUTLER DPM on 03/22/2025 at 07:42 AM CDT Sign off status: Pending * Provider: Ramirez Butler DPM Date: 03/18/2025 Generated for Santi torres/[place] on: 0 03/22/2025 07:42 AM CDT History and Physical Notes * [...] Date last seen by Dr. Viramontes was 12/2024., Initials mf Examination Category Sub-Category Detail Notes Category Not [...]
--- OUTSIDE RECORDS SUMMARY | 2025-03-22 07:42 | XMS_ITS | Clinical Summary ---
Author Organization [facility] [address] [facility] [address] Address [address] [place] [address] Care Team Providers Care Steam Station Supervisor Name Role Phone Janeth Viramontes MD Primary Care Provider [phone] Allergies Active Allergy Reactions Criticality Noted Date [...] by mouth daily Active cholecalciferol (VITAMIN D-3) 46608 unit capsule Take 1 capsule (10,000 Units [...] mg SL tabletIndicatio ns: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 DISSOLVE ONE [...] (04/01/2020): Added automatically from request for surgery [id number] Palpitations 01/09/2020 Chronic fatigue 01/09/2020 Preoperative cardiovascular examination 07/04/20 19 OWENS (dyspnea on exertion) 04/20/2018 Orthostatic hypotension 10/19/2016 Overview (02/18/2017): Orthostatic hypotension 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 (02/18/2017): Coronary vasospasm Thoracic back pain 12/29/2015 Overview (02/18/2017): Thoracic back pain, unspecified back pain laterality Coronary arteriosclerosis in tan[place] artery 11/04 Overview (02/18/2017): Coronary artery disease involving tanana coronary artery of tanana heart with other form of angina pectoris Left ventricular dilatation 11/04/2015 Overview (02/18/2017): LVE (left ventricular enlargement) Coronary artery disease invo lving tanana coronary artery of tanana heart with angina pectoris with documented spasm [...] Description 02/08/2025 1:00 PM CDT Office Visit [facility] [address] [place] [address] Christine Mendoza NP 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 (Primary Dx); Primary hypertension; JULISSA (obstructive sleep apnea) from Last 3 Months Surgical History Surgery Date Site/Laterality Comments APPENDECTOMY CATARACT EXTRACTION CHOLECYSTECTOMY HYSTERECTOMY SPINE SURGERY ERCP UPPER GASTROINTESTINAL ENDOSCOPY JOINT REPLACEMENT Medical History Medical History Date Comments Coronary artery spasm Dyslipidemia Hypertension GERD (gastroesophageal reflux disease) Anxiety [...] Mother Aydee Underwood Heart disease Mother Aydee Lathéctor Heart failure Mother Aydee Underwood Congestive hea [...] on file Legal Sex Female 3:37 PM COMPLIANCE ATTORNEY Gender Identity Female 05/06/2020 3:45 PM CDT Sexual Orientation Straight 01/31/2020 9: 43 AM CDT Obstetrics History Last Filed Vital Signs Vital Sign Reading Time Taken Comments Blood Pressure 128/68 02/08/2025 12:51 PM CDT Pulse 76 02/08/2025 12:51 PM CDT Temperature 36.8 C (98.3 F) 04/02/2020 12:00 PM CDT Respiratory Rate 16 11/10/2021 9:02 AM COMPLIANCE ATTORNEY Oxygen Saturation 95% 02/08/2025 12: 51 PM CDT Inhaled Oxygen Concentration - - Weight 96.9 kg (213 lb 11.2 oz) 025 12:51 PM CDT Height 167.6 cm (5' 6 ) 02/08/2025 12:5 1 PM CDT Body Mass Index 34.49 02/08/2025 12:51 PM CDT Plan of Treatment Health Maintenance Due Date Last Done Comments Hepatitis C Screening 1945 Osteoporosis Screening-Bone Density Scan 1945 DTaP/Tdap/Td Vaccine (1 - Tdap) 1958 Hepatitis B Screening 1965 Zoster Vaccine (1 of 2) 1997 Well Visit 65+ 2012 Depression Screening 02/12/2021 02/13/2020, 02/13/20 20 Fall Risk Assessment 04/02/2021 04/02/2020 Covid-19 Vaccine (4 - 2023-2 5 season) 2024 08/14/2021, 01/23/2021, 01/02/2021 Influenza Vaccine (Season Ended) 2025 07/21/2021, 07/18/2020, 08/01/2019, Additional history exists Pneumococcal vaccine 65+ Completed 021, 10/13/2015, 10/24/2012, Additional history exists Medical Devices Explanted Type Area Network Technology Instructor Device Identifier Shelf Expiration Date Model / Serial / Lot [employer] 6571 Chris Flexi-Stent 7fr 3cm Small Pigtail Flexible .035in Stent - [id number] Implanted:Qty : 1 on 03/31/2020 by Ricky Jeter MD at [facility] Explanted:Qty : 1 on 04/02/2020 by Ricky Jeter MD at [facility] Stent N/A: Pancreas [employer] 09/13/2024 [id number] / / [id number] Conmed Purnima [id number] [place] Viabil 10mm 8.5fr 6cm 200cm Fully Covered Self Expand Pull - [id number] - [id number] Implanted:Qty : 1 on 03/31/2020 by Ricky Jeter MD at [facility] Explanted:Qty : 1 on 04/02/2020 by Ricky Jeter MD at [facility] Stent N/A: Bile Duct [employer] Purnima 12/20/2022 [id number] / [id number] / Insurance MEDICARE MEDICARE [facility] MEDICARE BLUE CROSS MEDICARE SUPPLEMENT Advance Directives For more information, please contact: [phone] * Full Code (Latest Code Status on File) Date Activated Date Inactivated Comments 03/31/2020 8:47 AM 04/02/2020 5:04 PM Care Teams Steam Station Supervisor Relationship Specialty Start Date End Date Janeth Viramontes MD [address] [place] [address] PCP - General 09/16/11
--- OUTSIDE RECORDS SUMMARY | 2025-03-22 07:42 | XMS_ITS | Patient Health Record ---
Author Organization [facility] Address [address] [place], [place] [id number] Care Team Providers Care Under Ground Miner Name Role Phone LISA BUTLER Unavailable [phone] Janeth Viramontes Unavailable Unavailable Allergies Allergen (clinical [...] sodium 0.2 MG Oral Tablet *Reorder from [facility] for eRx and Interaction Alerts* 0 Active Lisinopril 10 MG Oral Tablet ORAL lisinopril 10 MG Oral TabletOriginal Medicationlisinopril 10 MG Oral Tablet *Reorder from [facility] for eRx and Interaction Alerts* 0 Active urea 400 MG/ML Topical Cream CUTANEOUS urea 400 MG/ML Topical CreamOriginal Medicationurea 400 MG/ML Topical Cream *Reorder from [facility] for eRx and Interaction Alerts* 3 Active 12 HR ranolazine 1000 MG Extended Release Oral Tablet [Ranexa] ORAL 12 HR ranolazine 1000 MG Extended Release Oral Tablet [Ranexa]Original [id number] HR ranolazine 1000 MG Extended Release Oral Tablet [Ranexa] *Reorder from [facility] for eRx and Interaction Alerts* 6 Active Famotidine 20 MG Oral Tablet ORAL famotidine 20 MG Oral TabletOriginal Medicationfamotidine 20 MG Oral Tablet *Reorder from [facility] for eRx and Interaction Alerts* 0 Active Medrol Dosepak ORAL Medrol DosepakOr iginal MedicationMedrol Dosepak *Reorder from [facility] for eRx and Interaction Alerts* 3 Active Isosorbide Mononitrate 20 MG Oral Tablet ORAL isosorbide mononitrate 20 MG Oral TabletOriginal Medicationisosorbide mononitrate 20 MG Oral Tablet *Reorder from [facility] for eRx and Interaction Alerts* 0 Active pantoprazole 40 MG Delayed Release Oral Tablet ORAL pantoprazole 40 MG Delayed Release Oral TabletOriginal Medicationpantoprazole 40 MG Delayed Release Oral Tablet *Reorder from [facility] for eRx and Interaction Alerts* 0 Active calcium carbonate 600 MG / cholecalciferol 125 UNT Oral Tablet ORAL calcium carbonate 600 MG / cholecalciferol 125 UNT Oral TabletOriginal Medicationcalcium carbonate 600 MG / cholecalciferol 125 UNT Oral Tablet *Reorder from [facility] for eRx and Interaction Alerts* 6 Active ciclopirox 80 MG/ML Topical Solution ciclopirox 80 MG/ML Topical SolutionOriginal Medicationciclopirox 80 MG/ML Topical Solution *Reorder from [facility] for eRx and Interaction Alerts* 7 Active amlodipine 10 MG Oral Tablet ORAL amlodipine 10 MG Oral TabletOriginal Medicationamlodipine 10 MG Oral Tablet *Reorder from [facility] for eRx and Interaction Alerts* 0 Active aspirin 81 MG Delayed Release Oral Tablet ORAL aspirin 81 MG Delayed Release Oral TabletOriginal Medicationaspirin 81 MG Delayed Release Oral Tablet *Reorder from [facility] for eRx and Interaction Alerts* 6 Active Furosemide 40 MG Oral Tablet ORAL furosemide 40 MG Oral TabletOriginal Medicationfurosemide 40 MG Oral Tablet *Reorder from [facility] for eRx and Interaction Alerts* 0 Active clotrimazole 10 MG/ML Topical Solution CUTANEOUS clotrimazole 10 MG/ML Topical SolutionOriginal Medicationclotrimazole 10 MG/ML Topical Solution *Reorder from [facility] for eRx and Interaction Alerts* 4 Active ipratropium bromide 0.042 MG/ACTUAT Metered Dose Nasal [place] ipratropium bromide 0.042 MG/ACTUAT Metered Dose Nasal SprayOriginal Medicationipratropium bromide 0.042 MG/ACTUAT Metered Dose Nasal [place] *Reorder from [facility] for eRx and Interaction Alerts* 0 Active Immunizations Vaccine Route Administration Date Status Comme nts Influenza, high dose seasonal Unknown 09/09/2023 Admini stered Vital Signs Height-cm 172.72 cm 03/26/2024 Weight-kg 83.91 kg 03/26/2024 Height 68.00 in 03/26/2024 Weight 185 lbs 03/26/2024 BMI 28.13 kg/m2 03/26/2024 Encounters Encounter Location Date Provider Diagnosis [facility] [address] [place] [id number] 03/18/2025 LISA SNOOK Tinea unguium B35.1 ; Pain in right foot M79.671 ; Pain in left foot M79.672 ; Atherosclerosis of [place] arteries of extremities with intermittent claudication, bilateral legs I70.213 and Acquired keratosis [keratoderma] palmaris et plantaris L85.1 [facility] [address] [place] [id number] 03/26/2024 LISA SNOOK Tinea unguium B35.1 ; Pain in right toe(s) M79.674 ; Pain in left toe(s) M79.675 and Atherosclerosis of [place] arteries of extremities with intermittent claudication, bilateral legs I70.213 [facility] [address] [place] [id number] 06/25/2024 LISA SNOOK Tinea unguium B35.1 ; Pain in right foot M79.671 ; Pain in left foot M79.672 ; Atherosclerosis of [place] arteries of extremities with intermittent claudication, bilateral legs I70.213 and Acquired keratosis [keratoderma] palmaris et plantaris L85.1 [facility] [address] [place] [id number] 09/17/2024 LISA SNOOK Tinea unguium B35.1 ; Pain in right toe(s) M79.674 ; Pain in left toe(s) M79.675 and Atherosclerosis of [place] arteries of extremities with intermittent claudication, bilateral legs I70.213 [facility] [address] [place] [id number] 12/17/2024 LISA SNOOK Tinea unguium B35.1 ; Pain in right foot M79.671 ; Pain in left foot M79.672 ; Atherosclerosis of [place] arteries of extremities with intermittent claudication, bilateral legs I70.213 and Acquired keratosis [keratoderma] palmaris et plantaris L85.1 Assessments Encounter Date Diagnosis (ICD Code) Assessment Notes Treatment Notes Treatment Clinical Notes Section Notes 03/26/2024 Tinea unguium (ICD-10 - B35.1) FUNGAL [...] in right foot (ICD-10 - M79.671) 03/18/2025 Tinea unguium (ICD-10 - B35.1) Nails 1-5 Bilateral were debrided extensively with nail nippers and emery board, reducing length and girth to pink healthy tissue with any subungual debris and necrotic tissue removed 03/18/2025 Pain in right foot (ICD-10 - M79.671) 03/18/2025 Pain in left foot (ICD-10 - M79.672) 12/17/2024 Pain in left foot (ICD-10 - M79.672) 09/17/2024 Pain in left toe(s) (ICD-10 - M79.675) 06/25/2024 Pain in left foot (ICD-10 - M79.672) 03/26/2024 Pain in left toe(s) (ICD-10 - M79.675) 03/26/2024 Atherosclerosis of [place] arteries of extremities with intermittent claudication, bilateral legs (ICD-10 - I70.213) 06/25/2024 Atherosclerosis of [place] arteries of extremities with intermittent claudication, bilateral legs (ICD-10 - I70.213) 09/17/2024 Atherosclerosis of [place] arteries of extremities with intermittent claudication, bilateral legs (ICD-10 - I70.213) 12/17/2024 Atherosclerosis of [place] arteries of extremities with intermittent claudication, bilateral legs (ICD-10 - I70.213) 03/18/2025 Atherosclerosis of [place] arteries of extremities with intermittent claudication, bilateral legs (ICD-10 - I70.213) 03/18/2025 Acquired keratosis [keratoderma] palmaris et plantaris (ICD-10 - L85.1) A total of 2 corns or calluses, as described in the note above, were cut and pared utilizing a #15 blade 12/17/2024 Acquired keratosis [keratoderma] palmaris et plantaris [...] Treatment Next Appt Details Provider Name:LISA BUTLER, 01:00:00 PM, [address], [facility], [place], [place], [phone], Insurance Providers Payer Name Payer Address Payer Phone Subscriber Number Group Number Insured Name Patient Relationship to Insured Coverage Start Date Coverage End Date Medicare Part B [place] [address] [place] [address] [id number] FREDDIE MARTÍNEZ Self - patient is the insured [facility] ([facility]) ATTN CLAIMS [address] [place] [address] [id number] FREDDIE MARTÍNEZ Self - patient is the insured
[2025-03-22 08:01] LABS: Add Urine Microscopic? NO; Appearance Urine Clear (Clear); Bilirubin Urine Negative (Negative); Blood Urine Negative (Negative); Color Urine Light Yellow (Yellow); Glucose Urine UA Negative (Negative); Hemoglobin 12.8 g/dL (11.7-13.8); Ketones Urine Negative (Negative); Leukocyte Esterase Ur Negative (Negative); Mean Corpuscular Hemoglobin 31.5 pg (27.0-31.0); Mean Corpuscular Volume 98.5 fL (78.0-102.0); Mean Platelet Volume 9.2 fl (9.2-11.8); Nitrate Urine Negative (Negative); Platelet Count Result 303 K/mm3 (150-420); Protein Urine Negative (Negative); Red Blood Count 4.06 M/mm3 (4.20-5.40); Red Cell Distribution Width 12.4 % (11.6-14.4); Specific Grav Ur 1.015 (1.010-1.020); White Blood Count 6.4 K/mm3 (4.8-10.8)
[2025-03-22 08:33] LABS: Hemoglobin A1C 5.9 % (<5.7)
[2025-03-22 09:40] LABS: Free T3 2.37 pg/mL (2.18-3.98)
[2025-03-22 10:30] LABS: Alanine Aminotransferase 19 U/L (6-35); Albumin Level 3.8 g/dL (3.5-5.1); Alkaline Phosphatase 69 U/L (38-126); Anion Gap 2 mmol/L (4-12); Aspartate Amino Transferase 22 U/L (14-36); Bilirubin,Total 0.4 mg/dL (0.2-1.3); Blood Urea Nitrogen 13 mg/dL (7-17); Calcium 8.8 mg/dL (8.4-10.2); Carbon Dioxide 32 mmol/L (22-30); Chloride 102 mmol/L (98-107); Cholesterol 135 mg/dL (0-200); Estimated Glomerular Filt Rate > 60; Glucose 88 mg/dL (65-110); HDL Direct 63 mg/dL; LDL Cholesterol Calculated 53 mg/dL (<130); Osmolality Calculated 281 mOsm/kg (285-295); Potassium 4.3 mmol/L (3.4-5.0); Sodium 136 mmol/L (137-145); Total Protein 6.1 g/dL (6.3-8.2); Triglycerides 93 mg/dL (<150)
[2025-03-22 10:35] LABS: NT Pro B Type Natriuretic Pept 304 pg/mL (19.9-100)
[2025-03-22 10:43] LABS: Free T4 Free Thyroxine 1.67 ng/dL (0.78-2.19)
[2025-03-22 11:16] LABS: Vitamin B12 > 1000.0 pg/mL (239-931)
== END 2025-03-22 07:37 | disposition home or self-care (01) ==
PROVIDERS: PCP Internal Medicine; Visit Provider Internal Medicine
DX: Z12.31 Encounter for screening mammogram for malignant neoplasm of breast (principal); M33.21 Polymyositis with respiratory involvement; I10 Essential (primary) hypertension; E78.2 Mixed hyperlipidemia; E03.4 Atrophy of thyroid (acquired); I49.1 Atrial premature depolarization; R73.01 Impaired fasting glucose; G62.9 Polyneuropathy, unspecified; I50.9 Heart failure, unspecified
CPT/HCPCS: 36415; 77063; 77067; 80053; 80061; 81003; 82607; 83036; 83880; 84439; 84443; 84481; 85027

== ENCOUNTER 2025-04-10 18:45 | Emergency (ER) | payer MEDICARE, SELFPAY ==
--- NOTE | ~2025-04-10 | XR_ITS ---
XR chest 1V portable Ordering provider: Marlo Vargas MD History: 79 years Female with . hypertension . Comparison: December 21, 2024 FINDINGS: MEDIASTINUM: The cardiac silhouette is not enlarged. Sliding hiatus hernia. LUNGS: No infiltrates, effusions or pneumothorax. OTHER: No free air under the diaphragm. IMPRESSION: No acute cardiopulmonary pathology. Sliding hiatus hernia. Reviewed, dictated and finalized at location A.
--- OUTSIDE RECORDS SUMMARY | 2025-04-10 18:47 | XMS_ITS | Referral Summary ---
Author Organization [facility] [place] [address] [place] [address] [address] [facility] [address] [place] [address] Care Team Providers Care Park Recreation Manager Name Role Phone Janeth Viramontes MD Primary Care Provider Encounters Date Type Department Care Team Description 02/08/2025 1:00 PM CDT Office Visit [facility] Cardiology [address] [facility] [address] [place] [address] Christine Mendoza NP Coronary artery disease of [place] artery of [place] heart with stable angina pectoris (Primary Dx); [...] by mouth daily Active cholecalciferol (VITAMIN D-3) 80727 unit capsule Take 1 capsule (10,000 Units total) by mouth daily Active zoledronic acid/mannitol-wa ter (RECLAST IV) Infuse into a venous catheter Infusion Active latanoprost (XALATAN) 0.005 % ophthalmic solution 4 Active carboxymethylcel lulose sodium (REFRESH PLUS OPHT) Administer into affected eye(s) Active hydroCHLOROthiaz booker (HYDRODIURIL) 25 mg tablet [...] mg total) by mouth daily 4 Active gabapentin (NEURONTIN) 100 mg capsule Take 1 capsule (100 mg total) by mouth 3 (three) times a day 4 Active isosorbide mononitrate ER (IMDUR) 30 mg 24 hr tablet Take 3 tablets by mouth once daily 270 tablet 1 5 Active pravastatin (PRAVACHOL) 40 mg tablet Take 1 tablet by mouth once daily 90 tablet 1 5 Active budesonide-formo teroL (SYMBICORT) 160-4.5 mcg/actuation inhaler Inhale 2 puffs 2 (two) times a day Rinse mouth with water after use. Do not swallow. Active nitroglycerin (NITROSTAT) 0.4 mg SL tabletIndication s:Coronary artery disease of [place] artery of [place] heart with stable angina pectoris DISSOLVE ONE TABLET UNDER THE TONGUE EVERY 5 MINUTES NEEDED FOR CHEST PAIN. DO NOT EXCEED A TOTAL OF 3 DOSES IN 15 MINUTES 25 tablet 3 5 Active metoprolol tartrate (LOPRESSOR) 25 mg immediate release tablet Take 1 tablet by mouth twice daily 180 tablet 5 Active Active Problems Problem Noted Date Diagnosed Date JULISSA on CPAP 09/15/2023 Localized edema 09/24/2022 Mixed hyperlipidemia 11/10/2021 QT prolongation 11/10/2021 Biliary tract disease 04/01/2020 Abdominal pain 04/01/2020 Elevated amylase 04/01/2020 Generalized abdominal pain 02/13/2020 Overview (04/01/2020): Added automatically from request for surgery [id number] Palpitations 01/09/2020 Chronic fatigue 01/09/2020 Preoperative cardiovascular examination 07/04/20 19 OWENS (dyspnea on exertion) 04/20/2018 Orthostatic hypotension 10/19/2016 Overview (02/18/2017): Orthostatic hypotension 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 (02/18/2017): Coronary vasospasm Thoracic back pain 12/29/2015 Overview (02/18/2017): Thoracic back pain, unspecified back pain laterality Coronary arteriosclerosis in [place] artery 11/04 Overview (02/18/2017): Coronary artery disease involving [place] coronary artery of [place] heart with other form of angina pectoris Left ventricular dilatation 11/04/2015 Overview (02/18/2017): LVE (left ventricular enlargement) Coronary artery disease invo lving [place] coronary artery of [place] heart with angina pectoris with documented spasm [...] on file Legal 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 Gender Identity Female 05/06/2020 3:45 PM CDT Sexual Orientation Straight 01/31/2020 9: 43 AM CDT Last Filed Vital Signs Vital Sign Reading Time Taken Comments Blood Pressure 128/68 02/08/2025 12:51 PM CDT Pulse 76 02/08/2025 12:51 PM CDT Temperature 36.8 C (98.3 F) 04/02/2020 12:00 PM CDT Respiratory Rate 16 11/10/2021 9:02 AM LITHODUPLICATOR OPERATOR Oxygen Saturation 95% 02/08/2025 12: 51 PM CDT Inhaled Oxygen Concentration - - Weight 96.9 kg (213 lb 11.2 oz) 025 12:51 PM CDT Height 167.6 cm (5' 6) 02/08/2025 12:5 1 PM CDT Body Mass Index 34.49 02/08/2025 12:51 PM CDT Plan of Treatment Not on file Medical Devices Explanted Type Area Bag Washer Device Identifier Shelf Expiration Date Model / Serial / Lot Exercise [employer] 6571 Chris Flexi-Stent 7fr 3cm Small Pigtail Flexible .035in Stent - [id number] Implanted:Qty : 1 on 03/31/2020 by Ricky Jeter MD at [facility] Explanted:Qty : 1 on 04/02/2020 by Ricky Jeter MD at [facility] Stent N/A: Pancreas [employer] 09/13/2024 [id number] / / [id number] Conmed Purnima [id number] [place] Viabil 10mm 8.5fr 6cm 200cm Fully Covered Self Expand Pull - [id number] - [id number] Implanted:Qty : 1 on 03/31/2020 by Ricky Jeter MD at [facility] Explanted:Qty : 1 on 04/02/2020 by Ricky Jeter MD at [facility] Stent N/A: Bile Duct [employer] Purnima 12/20/2022 [id number] / [id number] / Insurance MEDICARE [facility] MED[facility] BLUE CROSS MEDICARE SUPPLEMENT Advance Directives For more information, please contact: [phone] * Full Code (Latest Code Status on File) Date Activated Date Inactivated Comments 03/31/2020 8:47 AM 04/02/2020 5:04 PM Care Teams Park Recreation Manager Relationship Specialty Start Date End Date Janeth Viramontes MD [address] [id number] PCP - General 09/16/11
--- OUTSIDE RECORDS SUMMARY | 2025-04-10 18:47 | XMS_ITS | Data Portability ---
Author Organization [place] - [facility], Main Office Address [address] [place] [address] Care Team Providers Care Lock Fitter Name Role Phone RUBENS MONTOYA Primary Care Provider [phone] RUBENS MONTOYA Referring Provider Assessment Encounter Date [...] more than half the time spent in mumf-uh-aeir care. Not available 03/16/2023 10:23:27 04/07/2023 04/07/2023 [...] recommended that she take Citracal +D to [place] tablets a day in the time being. [...] than half of this time spent in bniz-xy-njig care. Not available 04/07/2023 19:53:25 04/22/2023 04/22/2023 [...] patient more than half of this in znxf-rx-zadl conversation Not available 04/22/2023 13:40:48 05/11/2023 05/11/2023 [...] patient more than half of this in akof-uv-byza conversation Not available 05/11/2023 10:09:34 06/03/2023 06/03/2023 [...] patient more than half of this in ovpv-wr-zbhv conversation Not available 06/03/2023 11:06:01 Plan of Treatment Reminders Order Date Submit Date Provider Last Modified By Organization Details Last Modified Time Details Appointments None recorded. Lab None recorded. Referral physical therapist referral - see attached order- please schedule pt 2022 023 [facility], [address] [place], [address], 3 14:21:10 Procedures injection/a spiration joint/bursa (PROC) - in office procedure, administere d by provider 2022 023 [email or web address] In-Office Order, Internal Use Only DO Not Attach Compendium DO Not Attach Compendium, Do Not Delete/merge, [id number] 09:57:30 Surgeries None recorded. Imaging XR, shoulder 2022 023 [facility] [place], [address], [place], [address], 3 11:30:58 XR, shoulder 2022 023 [facility] [place], [address], [place], [address], 3 13:10:33 XR, elbow 2022 023 [email or web address] [facility] [place], [address], [place], [address], 3 13:52:51 XR, shoulder 2022 023 [facility] [place], [address], [place], [address], 3 12:30:32 XR, wrist 2022 023 [email or web address] [facility] [place], [address], [place], [address], 3 13:52:51 Medication Orders Kenalog 10 mg/mL suspension for injection [address] [facility], [address] [place], [address], 3 13:10:33 ropivacaine (PF) 5 mg/mL (0.5 %) injection solution [address] [facility], [address] [place], [address], 13:10:33 Patient TargetsNo targets recorded. Patient InstructionsNo [...] No observ ation record ed. [facility] [place] [address], [place], [address], 04/22/2023 13:39:16 04/22/20 XR, wrist No observ ation record ed. [facility] [place] [address], [place], [address], 04/22/2023 13:38:39 06/09/20 23 XR, elbow No observ ation record ed. [facility] [place] [address] [place], [address], 04/22/2023 13:38:16 05/11/20 23 XR, shoul janet No observ ation record ed. [facility] [place] [address], [address], 05/11/2023 10:06:48 06/03/20 23 XR, shoul janet No observ ation record ed. [facility] [place] [address], [address], 06/03/2023 11:03:45 Result Notes None recorded. Problems Name Problem SNOMED Code Status Onset Date Resolution Date Notes Provider Name and Address Organization Details Recorded Time History of total knee arthroplas ty 8076249320423 Active 2021 Not Available [facility] 3 00:55:20 Pain of left shoulder joint 0244814032325 9109 Active 2021 Not Available [facility] 3 00:55:20 Stable angina 693759879 Active 2018 Not Available [facility] 3 00:55:20 Enthesopat hy of hip region 58905937 Active Not Available [facility] 3 00:55:20 Osteoarthr itis of left knee joint 6862277520505 09 Active 2018 Not Available [facility] 3 00:55:20 Osteoarthr itis 159291096 Active Not Available [facility] 3 00:55:20 Pain of left hip joint 4116389794074 00 Active 2022 FREDERICK Mobley, [facility] 3 10:18:52 Pain of right shoulder joint 0780436397584 9100 Active 2022 FREDERICK Mobley, [place] [facility] 3 10:19:32 Partial thickness rotator cuff tear 861544159 Active 2022 Karlie Randall RMA null, [facility] 3 09:54:19 Vitamin D deficiency 49060945 Active 2022 Nava Jose, ASSEMBLER TRACTOR null, [facility] 3 13:32:39 Closed fracture of upper end of humerus 03489030 Active 2022 Karlie Randall RMA null, [facility] 3 12:06:45 Pain of left elbow joint 3050899811869 9104 Active 2022 Karlie Randall RMA null, [facility] 3 12:07:11 Pain of left wrist 9448924468603 02 Active 2022 aKrlie Randall RMA [place], [facility] 3 12:53:17 Problem Notes None recorded. Medical Equipment None Reported. Allergies Allergen ID Allergen Name Allergen Category Reaction Reaction Severity Criticality Documentation Date Start Date Code Code System Note Provider Name and Address Organization Details Recorded Time 1368 latex environme nt,medica tion rash Not available Not available 01/12/2023 34202 91 RxNorm BLIST ERS Not Available [facility] 3 01:02:40 1369 bacitraci n medicatio n Not available Not available Not available 01/12/20232018 1291 RxNorm cause d infec teed 2nd degre e no rash or sob Not Available [facility] 3 01:02:40 Medications Name Sig Start Date [...] suspension for injection in office 2022 active [facility]: 0003- 0494- 20 Not Available Not Available [...] administe red by the provider 06/12 completed [facility]: 0409- 4276- 17 Not Available Not Available [...] %) injection solution in office 2022 active [facility] 63853 -064- 01 Not Available Not Available Not Available Eliquis 2.5 mg tablet 09/05 completed Not Available Not Available Not Available PreserVischirag faith AREDS-2 09/05 completed Not Available Not Available Not Available BinaxNOW COVID-19 Ag Self Test kit Use as Directed on the Package 02/03 completed Not Available Not Available Not Available Vitals Date Recorded Body height Provider Name an d Address Organization Details Last Updated DateTime 03/16/2023 162.56 cm Karlie Randall [facility] 03/16/2023 09:52:09 Date Recorded Body height Provider Name an d Address Organization Details Last Updated DateTime 04/07/2023 162.56 cm Karlie Randall [facility] 04/07/2023 12:22:07 Date Recorded Body height Provider Name an d Address Organization Details Last Updated DateTime 04/22/2023 162.56 cm Karlie Randall [facility] 04/22/2023 12:04:48 Date Recorded Body height Provider Name an d Address Organization Details Last Updated DateTime 05/11/2023 162.56 cm Karlie Randall [facility] 05/11/2023 09:04:41 Date Recorded Body height Provider Name an d Address Organization Details Last Updated DateTime 06/03/2023 162.56 cm Karlie Randall [facility] 06/03/2023 10:23:22 Social History None recorded. Functional Status Question Answer Note LastModified by Organizat ion Details LastModified Time What is your level of alcohol consumption? Occasional [id number] Information not available 01/12/2023 Mental Status None recorded. Family History Relationship Description Onset Age of this Age Resolved Age Notes LastModified by Organization Details LastModified Time Father Heart disease [id number] Not available 01/12/2023 00:49:06 Father Hypertensive disorder [id number] [id number] Not available 01/12/2023 00:49:06 Mother Heart disease [id number] [id number] Not available 01/12/2023 00:49:06 Mother Hypertensive disorder [id number] Not available 01/12/2023 00:49:06 Brother Heart disease [id number] [id number] Not available 01/12/2023 00:49:06 Medical History Condition Response BLINDNESS N KIDNEY STONES N CARPAL TUNNEL SYNDROME N MRSA N LUNG DISEASE/DISORDER N HISTORY OF DRUG ABUSE N RADIATION / CHEMOTHERAPY N COPD N SPORTS INJURY N ANKLE PAIN N BLOOD DISEASES N SCHIZOPHRENIA N SHINGLES N BOWEL PROBLEMS N SHOULDER PAIN N DEPRESSION (INCLUDING POST ) N STROKE/TIA N KNEE PAIN N ULCERS N BENIGN PROSTATIC HYPERPLASIA N OBESITY N [...] HAVE YOU BEEN HOSPITALIZED OR SEEN IN [facility] ER IN THE PAST YEAR ? N [...] SNOMED-CT Code Diagnosis ICD10 Code Diagnosis Note [id number] Aydin Pritchard MD [facility] [address] [place] [address] 01/12/2021 00:00:00 01/12/2021 14:46:55 [id number] Aydin Pritchard MD [facility] [place] [address] [place] [address] 01/26/2021 00:00:00 01/26/2021 15:38:38 [id number] MD SALO Ballesteros[facility] [place] [address] [place] [address] 04/03/2021 00:00:00 04/03/2021 09:59:55 [id number] MD SALO [facility] [place] [address] [place] [address] 05/01/2021 00:00:00 05/01/2021 09:14:43 [id number] MD SALO [facility] [address] [place] [address] 06/04/2021 00:00:00 06/04/2021 11:10:45 [id number] MD SALO [facility] [place] [address] [place] [address] 06/12/2021 00:00:00 06/13/2021 12:11:52 [id number] MD CHANDU [facility] [place] [address] [place] [address] 07/10/2021 00:00:00 07/10/2021 09:44:19 [id number] Aydin Pritchard MD [facility] [place] [address] [place] [address] 07/24/2021 00:00:00 07/24/2021 12:01:16 [id number] MD SALO [facility] [place] [address] [place] [address] 01/01/2022 00:00:00 01/01/2022 10:41:38 [id number] MD CHANDU [facility] [place] [address] [place] [address] 04/16/2022 00:00:00 04/16/2022 09:57:05 [id number] ROSALIA Owens [facility] [place] [address] [place] [address] 04/30/2022 00:00:00 04/30/2022 09:18:47 [id number] Aydin Pritchard MD [address] [address] 02/03/2023 09:59:49 02/03/2023 11:15:08 Pain of right shoulder joint 9070530645 0484334 M25.511 [id number] Aydin Pritchard MD [facility] [place] [address] [place] [address] 03/16/2023 09:46:32 03/16/2023 10:51:04 Partial thickness rotator cuff tear 990591975 M75.101 [id number] Aydin Pritchard MD [address] [address] 04/07/2023 12:05:17 04/08/2023 09:46:52 Pain of left shoulder joint 6067840542 3194038 M25.512 [id number] Aydin Pritchard MD [facility] [place] [address] [place] [address] 04/22/2023 11:58:33 04/22/2023 13:52:51 Closed fracture of upper end of humerus 24202711 S42.202D Pain of le ft elbow joint 7573782070 9132586 M25.522 Pain of left wrist 38486 06960 67722 M25.532 [id number] Aydin Pritchard MD [facility] [place] [address] [place] [address] 05/11/2023 09:00:00 05/11/2023 10:14:12 Closed fracture of upper end of humerus 08356028 S42.202D Pain of ri ght shoulder joint 8136013900 0649807 M25.511 [id number] Aydin Pritchard MD [facility] [address] [facility] [address] [place] [address] 06/03/2023 10:10:44 06/03/2023 11:23:28 Closed fracture of upper end of humerus 46999090 S4 Health Concerns Section Related Observation LastModified by Organization Detai ls LastModified Time None Recorded Concern Status LastModified by Organization Details LastModified Time None Recorded Advance Directives Directive None Recorded Payers Encounter Date Sequence Insurance Name Policy Number Policy Ba Covered Member ID Ba Member ID Guarantor Name 03/16/2023 1 [place] Betzy S Reddo [id number] Betzy S Reddo 03/16/2023 2 [place] [id number] Betzy S Reddo [id number] Betzy S Reddo 04/07/2023 1 [place] Betzy S Reddo [id number] Betzy S Reddo 04/07/2023 2 [place] [id number] Betzy S Reddo [id number] Betzy S Reddo 04/22/2023 1 [place] Betzy S Reddo [id number] Betzy S Reddo 04/22/2023 2 [place] [id number] Betzy S Reddo [id number] Betzy S Reddo 05/11/2023 1 [place] Betzy S Reddo [id number] Betzy S Reddo 05/11/2023 2 [place] [id number] Betzy S Reddo [id number] Betzy S Reddo 06/03/2023 1 [place] Betzy S Reddo [id number] Betzy S Reddo 06/03/2023 2 [place] [id number] Betzy S Reddo [id number] Betzy S Reddo Notes Date Note [...] with supraspinatus insertional disease. Aydin Pritchard MD [address] [place] [address], [address] [address], [place], [address], [place] [facility] 04/07/2023 19:53:42 OBGyn Episode No OBEpisode recorded.
--- OUTSIDE RECORDS SUMMARY | 2025-04-10 18:47 | XMS_ITS | Patient Health Record ---
Author Organization [facility] Address [address] [place] [address] Care Team Providers Care Interventional Sale Consultant Name Role Phone Wander METCALF, Janeth Primary Care Provider Neema BOBO PA-C, GISELLE Unavailable Allergies Allergen (clinical drug ingredient) Drug/Non Drug Allergy documented on EMR Reaction Allergy Type Onset Date Status Latex latex (uncoded) Unknown Allergy Acti ve tape (uncoded) rash Allergy Activ e bacitracin Bacitracin rash Drug Allergy Activ e Neosporin rash Drug Allergy Active Reason For Referral No Information Medications Medication [...] morning Orally Once a day Active Ipratropium [place] HFA 17 MCG/ACT 2 puffs Inhalation Four [...] Active PreserVision AREDS 2 Active Calcium Active Social History Tobacco Use: Social History Observation Description Date Details (start date - stop date) Never Smoker NA - NA Tobacco Use/Smoking Question Answer Notes Are you a nonsmoker Problems Problem Type SNOMED Code ICD Code Onset Dates Problem Status W/U Status Risk Notes Problem 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 Plan Of Treatment Pending Test Test Name Order Date Endoscopic Retrograde Cholangiopancreato graphy (ERCP) 01/21/2020 Endoscopic Retrograde Cholangiopancreato graphy (ERCP) 02/13/2020 Insurance Providers Payer Name Payer Address Payer Phone Subscriber Number Group Number Insured Name Patient Relationship to Insured Coverage Start Date Coverage End Date Medicare-M O Medicare [address] [address] [place], [place] [id number] Betzy Juarez Self - patient is the insured [place] [address] [place], [place] [id number] Betzy Juarez Self - patient is the insured Medical (General) History Medical History History ICD Code Cholelithiasis/cholecystitis Choledocholithiasis [...]
--- OUTSIDE RECORDS SUMMARY | 2025-04-10 18:47 | XMS_ITS | Clinical Summary ---
Author Organization [facility] [place] [address] [facility] [address] Address [address] [facility] [address] [place] [address] Care Team Providers Care Staff Mine Warfare Officer Name Role Phone Janeth Viramontes MD Primary [...] by mouth daily Active cholecalciferol (VITAMIN D-3) 67049 unit capsule Take 1 capsule (10,000 Units [...] mg SL tabletIndication s:Coronary artery disease of [place] artery of [place] heart with stable angina pectoris DISSOLVE ONE [...] (04/01/2020): Added automatically from request for surgery [id number] Palpitations 01/09/2020 Chronic fatigue 01/09/2020 Preoperative cardiovascular examination 07/04/20 19 OWENS (dyspnea on exertion) 04/20/2018 Orthostatic hypotension 10/19/2016 Overview (02/18/2017): Orthostatic hypotension 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 (02/18/2017): Coronary vasospasm Thoracic back pain 12/29/2015 Overview (02/18/2017): Thoracic back pain, unspecified back pain laterality Coronary arteriosclerosis in [place] artery 11/04 Overview (02/18/2017): Coronary artery disease involving [place] coronary artery of [place] heart with other form of angina pectoris Left ventricular dilatation 11/04/2015 Overview (02/18/2017): LVE (left ventricular enlargement) Coronary artery disease invo lving [place] coronary artery of [place] heart with angina pectoris with documented spasm [...] 02/08/2025 1:00 PM CDT Office Visit 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 Gender Identity Female 05/06/2020 3:45 PM CDT Sexual Orientation Straight 01/31/2020 9: 43 AM CDT Obstetrics History Last Filed Vital Signs Vital Sign Reading Time Taken Comments Blood Pressure 128/68 02/08/2025 12:51 PM CDT Pulse 76 02/08/2025 12:51 PM CDT Temperature 36.8 C (98.3 F) 04/02/2020 12:00 PM CDT Respiratory Rate 16 11/10/2021 9:02 AM THIRD RIGGER Oxygen Saturation 95% 02/08/2025 12: 51 PM [...] 65+ 2012 Depression Screening 02/12/2021 02/13/2020, 02/13/20 Fall Risk Assessment 04/02/2021 04/02/2020 Covid-19 Vaccine (4 2023-2 5 season) 2024 08/14/2021, 01/23/2021, 01/02/2021 Influenza Vaccine (Season Ended) 2025 07/21/2021, 07/18/2020, 08/01/2019, Additional history exists Pneumococcal vaccine 65+ Completed 021, 10/13/2015, 10/24/2012, Additional history exists Medical Devices Explanted Type Area Research Development Director Device Identifier Shelf Expiration Date Model / Serial / Lot [employer] 6571 Chris Flexi-Stent 7fr 3cm Small Pigtail Flexible .035in Stent - [id number] Implanted:Qty : 1 on 03/31/2020 by Ricky Jeter MD at [facility] Explanted:Qty : 1 on 04/02/2020 by Ricky Jeter MD at [facility] Stent N/A: Pancreas [employer] 09/13/2024 [id number] / / [id number] Conmed Purnima [id number] Lowber Viabil 10mm 8.5fr 6cm 200cm Fully Covered Self Expand Pull - [id number] - [id number] Implanted:Qty : 1 on 03/31/2020 by Ricky Jeter MD at [facility] Explanted:Qty : 1 on 04/02/2020 by Ricky Jeter MD at [facility] Stent N/A: Bile Duct Conmed Purnima 12/20/2022 [id number] / [id number] / Insurance MEDICARE MEDICARE [facility] MEDICARE BLUE CROSS MEDICARE SUPPLEMENT Advance Directives For more information, please contact: [phone] * Full Code (Latest Code Status on File) Date Activated Date Inactivated Comments 03/31/2020 8:47 AM 04/02/2020 5:04 PM Care Teams Staff Mine Warfare Officer Relationship Specialty Start Date End Date Janeth Viramontes MD [address] [place] [address] [facility] - General 09/16/11
--- OUTSIDE RECORDS SUMMARY | 2025-04-10 18:48 | XMS_ITS ---
Author Organization [facility] Address [address] [place], [place] [id number] Care Team Providers Care Solution Architect Name Role Phone LISA BUTLER Unavailable [phone] Janeth Viramontes Unavailable Unavailable Allergies Allergen (clinical [...] 1000 MG Extended Release Oral Tablet [Ranexa]Original [id number] HR ranolazine 1000 MG Extended Release Oral Tablet [Ranexa] *Reorder from [facility] for eRx and Interaction Alerts* 6 Active calcium carbonate 600 MG / cholecalciferol 125 UNT Oral Tablet ORAL calcium carbonate 600 MG / cholecalciferol 125 UNT Oral TabletOriginal Medicationcalcium carbonate 600 MG / cholecalciferol 125 UNT Oral Tablet *Reorder from [facility] for eRx and Interaction Alerts* 6 Active ciclopirox 80 MG/ML Topical Solution ciclopirox 80 MG/ML Topical SolutionOriginal Medicationciclopirox 80 MG/ML Topical Solution *Reorder from [facility] for eRx and Interaction Alerts* 7 Active amlodipine 10 MG Oral Tablet ORAL amlodipine 10 MG Oral TabletOriginal Medicationamlodipine 10 MG Oral Tablet *Reorder from [facility] for eRx and Interaction Alerts* 0 Active aspirin 81 MG Delayed Release Oral Tablet ORAL aspirin 81 MG Delayed Release Oral TabletOriginal Medicationaspirin 81 MG Delayed Release Oral Tablet *Reorder from [facility] for eRx and Interaction Alerts* 6 Active Lisinopril 10 MG Oral Tablet ORAL lisinopril 10 MG Oral TabletOriginal Medicationlisinopril 10 MG Oral Tablet *Reorder from [facility] for eRx and Interaction Alerts* 0 Active urea 400 MG/ML Topical Cream CUTANEOUS urea 400 MG/ML Topical CreamOriginal Medicationurea 400 MG/ML Topical Cream *Reorder from [facility] for eRx and Interaction Alerts* 3 Active Famotidine 20 MG Oral Tablet ORAL famotidine 20 MG Oral TabletOriginal Medicationfamotidine 20 MG Oral Tablet *Reorder from [facility] for eRx and Interaction Alerts* 0 Active Isosorbide Mononitrate 20 MG Oral Tablet ORAL isosorbide mononitrate 20 MG Oral TabletOriginal Medicationisosorbide mononitrate 20 MG Oral Tablet *Reorder from [facility] for eRx and Interaction Alerts* 0 Active Furosemide 40 MG Oral Tablet ORAL furosemide 40 MG Oral TabletOriginal Medicationfurosemide 40 MG Oral Tablet *Reorder from [facility] for eRx and Interaction Alerts* 0 Active levothyroxine sodium 0.2 MG Oral Tablet ORAL levothyroxine sodium 0.2 MG Oral TabletOriginal Medicationlevothyroxine sodium 0.2 MG Oral Tablet *Reorder from [facility] for eRx and Interaction Alerts* 0 Active Medrol Dosepak ORAL Medrol DosepakOr iginal MedicationMedrol Dosepak *Reorder from [facility] for eRx and Interaction Alerts* 3 Active pantoprazole 40 MG Delayed Release Oral Tablet ORAL pantoprazole 40 MG Delayed Release Oral TabletOriginal Medicationpantoprazole 40 MG Delayed Release Oral Tablet *Reorder from [facility] for eRx and Interaction Alerts* 0 Active clotrimazole 10 MG/ML Topical Solution CUTANEOUS clotrimazole 10 MG/ML Topical SolutionOriginal Medicationclotrimazole 10 MG/ML Topical Solution *Reorder from [facility] for eRx and Interaction Alerts* 4 Active ipratropium bromide 0.042 MG/ACTUAT Metered Dose Nasal [place] ipratropium bromide 0.042 MG/ACTUAT Metered Dose Nasal SprayOriginal Medicationipratropium bromide 0.042 MG/ACTUAT Metered Dose Nasal [place] *Reorder from [facility] for eRx and Interaction Alerts* 0 Active Encounters Encounter Location Date Provider Diagnosis [facility] [address] [place], [place] [id number] 03/18/2025 LISA SNOOK Tinea unguium B35.1 ; Pain in right foot M79.671 ; Pain in left foot M79.672 ; Atherosclerosis of [place] arteries of extremities with intermittent claudication, bilateral [...] foot (ICD-10 - M79.672) 03/18/2025 Atherosclerosis of [place] arteries of extremities with intermittent claudication, bilateral [...] Name:LISA BUTLER, 01:00:00 PM, [address], [address], [id number], Progress Notes * JENNIFERSAVANNA TILLMANARA SDOB:[birth year] (79 yo F)Acc No.[id number]:03/18/2025 Patient: FREDDIE QUARLES Provider: Ramirez Butler DPM :1945 A ge:79 Y S ex:Female Date:03/18/2025 Address:[address] [place] [address] Subjective: * Chief Complaints: * 1 . [...] Medicationfurosemide 40 MG Oral Tablet *Reorder from [facility] for eRx and Interaction Alerts*, Taking Famotidine 20 MG Oral Tablet ORAL , Notes to Pharmacist: famotidine 20 MG Oral TabletOriginal Medicationfamotidine 20 MG Oral Tablet *Reorder from [facility] for eRx and Interaction Alerts*, Taking Isosorbide Mononitrate 20 MG Oral Tablet ORAL , Notes to Pharmacist: isosorbide mononitrate 20 MG Oral TabletOriginal Medicationisosorbide mononitrate 20 MG Oral Tablet *Reorder from [facility] for eRx and Interaction Alerts*, Taking Lisinopril 10 MG Oral Tablet ORAL , Notes to Pharmacist: lisinopril 10 MG Oral TabletOriginal Medicationlisinopril 10 MG Oral Tablet *Reorder from [facility] for eRx and Interaction Alerts*, Taking 12 HR ranolazine 1000 MG Extended Release Oral Tablet [Ranexa] ORAL , Notes to Pharmacist: 12 HR ranolazine 1000 MG Extended Release Oral Tablet [Ranexa]Original [id number] HR ranolazine 1000 MG Extended Release Oral Tablet [Ranexa] *Reorder from [facility] for eRx and Interaction Alerts*, Taking amlodipine 10 MG Oral Tablet ORAL , Notes to Pharmacist: amlodipine 10 MG Oral TabletOriginal Medicationamlodipine 10 MG Oral Tablet *Reorder from [facility] for eRx and Interaction Alerts*, Taking aspirin 81 MG Delayed Release Oral Tablet ORAL , Notes to Pharmacist: aspirin 81 MG Delayed Release Oral TabletOriginal Medicationaspirin 81 MG Delayed Release Oral Tablet *Reorder from [facility] for eRx and Interaction Alerts*, Taking calcium carbonate 600 MG / cholecalciferol 125 UNT Oral Tablet ORAL , Notes to Pharmacist: calcium carbonate 600 MG / cholecalciferol 125 UNT Oral TabletOriginal Medicationcalcium carbonate 600 MG / cholecalciferol 125 UNT Oral Tablet *Reorder from [facility] for eRx and Interaction Alerts*, Taking ciclopirox 80 MG/ML Topical Solution , Notes to Pharmacist: ciclopirox 80 MG/ML Topical SolutionOriginal Medicationciclopirox 80 MG/ML Topical Solution *Reorder from [facility] for eRx and Interaction Alerts*, Taking clotrimazole 10 MG/ML Topical Solution CUTANEOUS , Notes to Pharmacist: clotrimazole 10 MG/ML Topical SolutionOriginal Medicationclotrimazole 10 MG/ML Topical Solution *Reorder from [facility] for eRx and Interaction Alerts*, Taking ipratropium bromide 0.042 MG/ACTUAT Metered Dose Nasal [place] , Notes to Pharmacist: ipratropium bromide 0.042 MG/ACTUAT Metered Dose Nasal SprayOriginal Medicationipratropium bromide 0.042 MG/ACTUAT Metered Dose Nasal [place] *Reorder from [facility] for eRx and Interaction Alerts*, Taking levothyroxine sodium 0.2 MG Oral Tablet ORAL , Notes to Pharmacist: levothyroxine sodium 0.2 MG Oral TabletOriginal Medicationlevothyroxine sodium 0.2 MG Oral Tablet *Reorder from [facility] for eRx and Interaction Alerts*, Taking Medrol Dosepak ORAL , Notes to Pharmacist: Medrol DosepakOriginal MedicationMedrol Dosepak *Reorder from [facility] for eRx and Interaction Alerts*, Taking pantoprazole 40 MG Delayed Release Oral Tablet ORAL , Notes to Pharmacist: pantoprazole 40 MG Delayed Release Oral TabletOriginal Medicationpantoprazole 40 MG Delayed Release Oral Tablet *Reorder from [facility] for eRx and Interaction Alerts*, Taking urea 400 MG/ML Topical Cream CUTANEOUS , Notes to Pharmacist: urea 400 MG/ML Topical CreamOriginal Medicationurea 400 MG/ML Topical Cream *Reorder from [facility] for eRx and Interaction Alerts*, Medication List [...] - M79.672 4 . A therosclerosis of [place] arteries of extremities with intermittent claudication, bilateral legs - I70.213 5 . Acquired keratosis [keratoderma] palmaris et plantaris - L85.1 Plan: * Treatment: 2. A cquired keratosis [keratoderma] palmaris et plantaris Notes: A total of 2 corns or calluses, as described in the note above, were cut and pared utilizing a #15 blade * Procedure Codes: 1 1055 TRIM SKIN LESION, Modifiers: Q8 , 03532 DEBRIDE NAIL, 6 OR MORE, Modifiers: 59 , Q8 * Follow Up: 1 0 - 12 weeks (Reason: At-Risk Foot care, sooner if problems develop.) * Billing Information: * Visit Code: * Procedure Codes: 19916 TRIM SKIN LESION. Modifiers: Q8 48493 DEBRIDE NAIL, 6 OR MORE. Modifiers: 59, Q8 * Electronic signature of LISA BUTLER DPM on 04/10/2025 at 06:47 PM CDT Sign off status: Pending * Provider: Ramirez Butler DPM Date: 0 03/18/2025 Generated for Santi torres/Faxing/eTransmitting on: 0 04/10/2025 06:47 PM CDT History and Physical Notes * HPI [...]
--- OUTSIDE RECORDS SUMMARY | 2025-04-10 18:48 | XMS_ITS | Patient Health Record ---
Author Organization [facility] Address [address] [place], [place] [phone] Care Team Providers Care Superintendent Schools Name Role Phone LISA BUTLER Unavailable [phone] Janeth Viramontes Unavailable Unavailable Allergies Allergen (clinical [...] sodium 0.2 MG Oral Tablet *Reorder from [facility] for eRx and Interaction Alerts* 0 Active Lisinopril 10 MG Oral Tablet ORAL lisinopril 10 MG Oral TabletOriginal Medicationlisinopril 10 MG Oral Tablet *Reorder from [facility] for eRx and Interaction Alerts* 0 Active urea 400 MG/ML Topical Cream CUTANEOUS urea 400 MG/ML Topical CreamOriginal Medicationurea 400 MG/ML Topical Cream *Reorder from [facility] for eRx and Interaction Alerts* 3 Active 12 HR ranolazine 1000 MG Extended Release Oral Tablet [Ranexa] ORAL 12 HR ranolazine 1000 MG Extended Release Oral Tablet [Ranexa]Original [id number] HR ranolazine 1000 MG Extended Release Oral Tablet [Ranexa] *Reorder from [facility] for eRx and Interaction Alerts* 6 Active Famotidine 20 MG Oral Tablet ORAL famotidine 20 MG Oral TabletOriginal Medicationfamotidine 20 MG Oral Tablet *Reorder from [facility] for eRx and Interaction Alerts* 0 Active Medrol Dosepak ORAL Medrol DosepakOr iginal MedicationMedrol Dosepak *Reorder from [facility] for eRx and Interaction Alerts* 3 Active Isosorbide Mononitrate 20 MG Oral Tablet ORAL isosorbide mononitrate 20 MG Oral TabletOriginal Medicationisosorbide mononitrate 20 MG Oral Tablet *Reorder from [facility] for eRx and Interaction Alerts* 0 Active pantoprazole 40 MG Delayed Release Oral Tablet ORAL pantoprazole 40 MG Delayed Release Oral TabletOriginal Medicationpantoprazole 40 MG Delayed Release Oral Tablet *Reorder from [facility] for eRx and Interaction Alerts* 0 Active calcium carbonate 600 MG / cholecalciferol 125 UNT Oral Tablet ORAL calcium carbonate 600 MG / cholecalciferol 125 UNT Oral TabletOriginal Medicationcalcium carbonate 600 MG / cholecalciferol 125 UNT Oral Tablet *Reorder from [facility] for eRx and Interaction Alerts* 6 Active ciclopirox 80 MG/ML Topical Solution ciclopirox 80 MG/ML Topical SolutionOriginal Medicationciclopirox 80 MG/ML Topical Solution *Reorder from [facility] for eRx and Interaction Alerts* 7 Active amlodipine 10 MG Oral Tablet ORAL amlodipine 10 MG Oral TabletOriginal Medicationamlodipine 10 MG Oral Tablet *Reorder from [facility] for eRx and Interaction Alerts* 0 Active aspirin 81 MG Delayed Release Oral Tablet ORAL aspirin 81 MG Delayed Release Oral TabletOriginal Medicationaspirin 81 MG Delayed Release Oral Tablet *Reorder from [facility] for eRx and Interaction Alerts* 6 Active Furosemide 40 MG Oral Tablet ORAL furosemide 40 MG Oral TabletOriginal Medicationfurosemide 40 MG Oral Tablet *Reorder from [facility] for eRx and Interaction Alerts* 0 Active clotrimazole 10 MG/ML Topical Solution CUTANEOUS clotrimazole 10 MG/ML Topical SolutionOriginal Medicationclotrimazole 10 MG/ML Topical Solution *Reorder from [facility] for eRx and Interaction Alerts* 4 Active ipratropium bromide 0.042 MG/ACTUAT Metered Dose Nasal [place] ipratropium bromide 0.042 MG/ACTUAT Metered Dose Nasal SprayOriginal Medicationipratropium bromide 0.042 MG/ACTUAT Metered Dose Nasal [place] *Reorder from [facility] for eRx and Interaction Alerts* 0 Active Immunizations Vaccine Route Administration Date Status Comme nts Influenza, high dose seasonal Unknown 09/09/2023 Admini stered Encounters Encounter Location Date Provider Diagnosis [facility] [place] [address] [place] [id number] 03/18/2025 LISA SNOOK Tinea unguium B35.1 ; Pain in right foot M79.671 ; Pain in left foot M79.672 ; Atherosclerosis of [place] arteries of extremities with intermittent claudication, bilateral legs I70.213 and Acquired keratosis [keratoderma] palmaris et plantaris L85.1 [facility] [address] [place] [id number] 06/25/2024 LISA SNOOK Tinea unguium B35.1 ; Pain in right foot M79.671 ; Pain in left foot M79.672 ; Atherosclerosis of [place] arteries of extremities with intermittent claudication, bilateral legs I70.213 and Acquired keratosis [keratoderma] palmaris et plantaris L85.1 [facility] [address] [place] [id number] 09/17/2024 LISA SNOOK Tinea unguium B35.1 ; Pain in right toe(s) M79.674 ; Pain in left toe(s) M79.675 and Atherosclerosis of [place] arteries of extremities with intermittent claudication, bilateral legs I70.213 [facility] [address] [place] [id number] 12/17/2024 LISA SNOOK Tinea unguium B35.1 ; Pain in right foot M79.671 ; Pain in left foot M79.672 ; Atherosclerosis of [place] arteries of extremities with intermittent claudication, bilateral [...] foot (ICD-10 - M79.672) 06/25/2024 Atherosclerosis of [place] arteries of extremities with intermittent claudication, bilateral legs (ICD-10 - I70.213) 09/17/2024 Atherosclerosis of [place] arteries of extremities with intermittent claudication, bilateral legs (ICD-10 - I70.213) 12/17/2024 Atherosclerosis of [place] arteries of extremities with intermittent claudication, bilateral legs (ICD-10 - I70.213) 03/18/2025 Atherosclerosis of [place] arteries of extremities with intermittent claudication, bilateral [...] Appt Details Provider Name:LISA BUTLER, 01:00:00 PM, [address], [facility], [place], [place], [phone], Insurance Providers Payer Name Payer Address Payer Phone Subscriber Number Group Number Insured Name Patient Relationship to Insured Coverage Start Date Coverage End Date Medicare Part B [place] [address] [place] [address] [id number] FREDDIE MARTÍNEZ Self - patient is the insured [facility] ([facility]) ATTN CLAIMS [address] [place] [address] [id number] FREDDIE MARTÍNEZ Self - patient is the insured
[2025-04-10 18:51] VITALS: BP 171/93; PULSE 95; RESP 20; TEMP 36.6; O2SAT 96
--- NOTE | 2025-04-10 18:52 | ED.GENADULT ---
HPI - General Adult General Chief complaint: Nausea/Vomiting/Diarrhea Stated complaint: high blood pressure Source: patient Mode of arrival: ambulatory Limitations: no limitations History of Present Illness HPI narrative: 79-year-old female with anxiety, hypertension, CHF, hypothyroidism, dyslipidemia, arthritis, negative cardiac last year with an LVEDP of 16, asthma( normal flows with normal volumes except elevated RV and normal DLCO corrected for VA) was noted to have -- elevated blood pressure this afternoon. Her blood pressure reading at home was noted to be 289/118. -- Patient felt shaky and tremulous all over. -- Nausea without any vomiting/ Diarrhea no chest pain or shortness of breath no abdominal pain Onset (ago): day(s) ( 1 day) Severity: mild Relieving factors: none Exacerbating factors: none Associated symptoms: nausea/vomiting Treatments prior to arrival: none Related Data Home Medications ?Medication ?Instructions ?Recorded ?Confirmed ?Last Taken ?Type famotidine 20 mg tablet 20 mg PO DAILY 10/26/19 02/04/25 01/20/25 History fluticasone propionate 50 2 inhalation inhalation HS PRN 10/26/19 02/04/25 01/20/25 History mcg/actuation blister powder for Congestion inhalation furosemide 40 mg tablet 60 mg PO QAM 10/26/19 02/04/25 01/20/25 History ipratropium bromide 42 mcg (0.06 2 spray intranasal BID PRN 10/26/19 02/04/25 01/20/25 History %) nasal spray Congestion levothyroxine 200 mcg tablet 200 mcg PO QAM 10/26/19 02/04/25 01/21/25 History pantoprazole 40 mg tablet,delayed 40 mg PO QAM 10/26/19 02/04/25 01/20/25 History release paroxetine HCl 20 mg tablet 40 mg PO QAM 10/26/19 02/04/25 01/21/25 History pravastatin 40 mg tablet 40 mg PO HS 10/26/19 02/04/25 01/20/25 History (Pravachol) cyanocobalamin (vitamin B-12) 500 500 mcg PO DAILY 12/05/20 02/04/25 01/17/25 History mcg lozenges (Vitamin B-12) isosorbide mononitrate 30 mg 90 mg PO QAM 12/05/20 02/04/2525 History tablet,extended release 24 hr flaxseed oil 1,000 mg capsule 1,000 mg PO BID 03/25/21 02/04/25 01/17/25 History metoprolol tartrate 25 mg tablet 25 mg PO BID 03/25/21 02/04/25 01/21/25 History vit C 250 mg-vit E 200 unit-zinc 1 tablet PO BID 03/25/21 02/04/25 01/17/25 History 12.5 mg-copper 1 gl-[id number]-[id number] tablet (ICaps AREDS2 (copper citrate)) losartan 100 mg tablet 100 mg PO DAILY 04/05/23 02/04/25 01/20/25 History gabapentin 100 mg capsule 100 mg PO TID 06/27/24 02/04/25 01/21/25 History latanoprost 0.005 % eye drops 1 drp LEFT EYE HS 08/16/24 02/04/25 01/20/25 History potassium chloride 10 mEq 10 meq PO DAILY 08/17/24 02/04/25 01/20/25 History tablet,extended release acetaminophen 500 mg tablet 1,000 mg PO HS 09/27/24 02/04/25 01/20/25 History aspirin 81 mg chewable tablet 1 tablet PO DAILY 09/27/24 02/04/25 01/20/25 History zoledronic acid 5 mg/100 mL in 1 ea IV .Yearly 12/07/24 02/04/25 Unknown History mannitol 5 %-water intravenous piggybck (Reclast) hydrochlorothiazide 25 mg tablet 12.5 mg PO DAILY 12/31/24 02/04/25 01/20/25 History budesonide-formoterol HFA 80 1 inh inhalation QID asthma 01/04/25 02/04/25 01/20/25 History mcg-4.5 mcg/actuation aerosol inhaler (Symbicort) budesonide-formoterol HFA 80 2 puff inhalation Q12H 02/04/25 02/04/25 Unknown History mcg-4.5 mcg/actuation aerosol inhaler (Symbicort) Allergies Allergy/AdvReac Type Severity Reaction Status Date / Time bacitracin Allergy Intermediate RASH Verified 04/10/25 18:54 adhesive tape Allergy Mild rash Verified 04/10/25 18:54 latex Allergy Mild RASH WITH Verified 04/10/25 18:54 BLISTERS neomycin (From Neosporin AdvReac Mild redness/irr Verified 04/10/25 18:54 ([id number])) itation polymyxin B (From Neosporin AdvReac Mild redness/irr Verified 04/10/25 18:54 ([id number])) iation Review of Systems Review of Systems: All systems reviewed & are unremarkable except as noted in HPI and below Constitutional: Constitutional: Reports as per HPI and Reports no additional constitutional complaints Eyes: Eyes: Reports as per HPI and Reports no additional eye complaints ENT: Reports system reviewed and no additional complaints, except as documented and Reports as per HPI Cardiovascular: Cardiovascular: Reports as per HPI and Reports no additional cardiovascular complaints Respiratory: Respiratory: Reports as per HPI and Reports no additional respiratory complaints Comments: intermittent shortness of breath Gastrointestinal: Gastrointestinal: Reports as per HPI and Reports no additional gastrointestinal complaints Genitourinary: Genitourinary: Reports no additional female genitourinary complaints and Reports as per HPI Musculoskeletal: Musculoskeletal: Reports no additional musculoskeletal complaints and Reports as per HPI Integumentary/Breasts: Skin/Breast: Reports system reviewed and no additional complaints, except as docu and Reports as per HPI Neurologic: Reports system reviewed and no additional complaints, except as documented and Reports as per HPI Psychiatric: Psychiatric: Reports no additional psychiatric complaints, Reports as per HPI and Reports anxiety Endocrine: Endocrine: Reports no additional endocrine complaints and Reports as per HPI Hematologic/Lymphatic: Hematologic/Lymphatic: Reports no additional hematologic/lymphatic complaints and Reports as per HPI Allergic/Immunologic: Allergic/Immunologic: Reports no additional allergic/immunologic complaints and Reports as per HPI [facility] Past Medical History Medical History Dermatitis of ear canal Hearing loss, left Neuropathy Arthritis Wears glasses Hypothyroidism Anxiety Congestive heart failure the patient stated that she was diagnosed with CHF but he did not see any diagnosis under cardiology note. She is on diuretics. Angina pectoris High cholesterol GERD (gastroesophageal reflux disease) HTN (hypertension) Thyroid disease Surgical History Surgical History H/O hand surgery 10/2024 Right hand History of bladder surgery S/P colonoscopic polypectomy S/P total knee arthroplasty right total knee arthroplasty today by Dr. Pritchard 12/15/2020 History of cataract surgery H/O colonoscopy Hx laparoscopic cholecystectomy History of ERCP x3. She had stents placed which were subsequently removed in some type of the duct. Not sure if it is a common bile duct pancreatic duct or the liver. H/O total hysterectomy History of back surgery History of total knee replacement Left total knee arthroplasty Family History Family History Father COPD (chronic obstructive pulmonary disease) Heart disease Malignant neoplasm of prostate Hypertension Mother Heart disease Alzheimer's dementia Acute myocardial infarction Hypertension Other Diabetes mellitus Cancer Cerebrovascular accident Sibling Heart disease Unknown Diabetes mellitus Heart disease Cancer Cerebrovascular accident Hypertension Kidney disease Other Arthritis High cholesterol Social History Social History Social History: the patient lives with her . 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 The patient is a full code. 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 The patient has 2 children 1 son and 1 daughter. The patient is a lifelong nonsmoker. It may be has 3 drinks of alcohol per year. Caffeine- coffee Smoking status: Never smoker Second hand tobacco smoke exposure: Yes Alcohol intake: never Alcohol use details: wine yearly Substance use: current Substance use type: marijuana Other substance usage details: 2 gummies at night for leg cramps Last use: 08/15/24 Do You Feel Safe in your Home?: Yes Lack of Transportation: No Lack of Food: Never True Current Housing: I Have Housing Concerned About Future Housing: No Difficulty Paying Gas/Electric Bills: No Difficulty Paying for Meds: No Currently Unemployed: No Education: Associate Degree Difficulty w/ Childcare or Family Care: No Living arrangements: with family Additional living arrangements comments: Occupation/Education: retired 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 Oxygen saturation of 97% on room air. Const: General: healthy appearing Nutritional Appearance: well nourished Orientation/consciousness: patient oriented x3 HENMT: Head: normal to inspection Ears: external ears normal Face/Nose/Sinus: Normal external nose present Face and sinus: normal facial exam Mouth: Yes Normal oral and palatal mucosa present Throat: posterior oropharynx normal Eyes: Conjunctivae: conjunctivae normal Pupils: Equal, round and reactive pupils present EOM: EOMs intact bilaterally Direct Ophthalmoscopy: no photophobia Neck: Neck: normal visual inspection, no lymphadenopathy and no meningeal signs Chest: Chest palpation & inspection: normal inspection of the chest Resp: Effort & Inspection: normal respiratory effort Auscultation: clear to auscultation bilaterally Cardio: Rate: regular rate Rhythm: regular rhythm GI: GI Palp: Yes Soft to palpation Auscultation: normal bowel sounds Other: No tenderness/ rigidity/rebound : General: Yes no CVA tenderness Back/Spine/Pelvis: Back: no CVA tenderness Skin: General skin exam: normal color Rashes: no rashes Wounds: no wounds Neuro: General: patient oriented x3, moves all extremities, no meningeal signs, no focal motor deficits and CN's II-XI intact bilaterally Cranial nerves: Yes Nystagmus not present Speech: normal speech Other: distal tremor Course Course Emergency Course: Nausea-- No episodes of abdominal pain, vomiting or diarrhea during her ER stay. hypertension-- The patient blood pressure has remained stable. Blood pressure has remained as low as 140/57. Blood work revealed potassium of 3.1, bicarbonate of 34 and a BUN/creatinine of 24/1.08. Chest x-ray is clear. Patient has a normal troponin and proBNP. EKG does not show any acute findings. Patient is on Lasix 60 mg daily. Patient is on Imdur even though she has had a normal cardiac catheterization. Would have a follow-up with her primary care physician. Anxiety-- patient is certainly anxious on exam. She is tremulous and hopefully metoprolol would be helpful. The patient does not have any focal neuro deficits. Elevated lactate- patient has a normal white cell count. She is afebrile. No obvious focus of infection. She has an unremarkable chest x-ray and a UA. Hold off IV fluids as she takes Lasix for CHF. Will have a follow-up with the primary care physician. Vital Signs Vital signs: Vital Signs Temperature 36.6 C 04/10/25 18:51 Pulse Rate 95 04/10/25 18:51 Respiratory Rate 20 04/10/25 18:51 Blood Pressure 171/93 H 04/10/25 18:51 Pulse Oximetry 96 04/10/25 18:51 Oxygen Delivery Room Air 04/10/25 18:51 Temperature 36.6 C 04/10/25 18:51 Pulse Rate 95 04/10/25 18:51 Respiratory Rate 20 04/10/25 18:51 Blood Pressure 171/93 H 04/10/25 18:51 Pulse Oximetry 96 04/10/25 18:51 Oxygen Delivery Room Air 04/10/25 18:51 Medical Decision Making MDM Narrative Medical decision making narrative: Nausea anxiety CKD electrolyte imbalance /metabolic alkalosis possibly secondary to aggressive diuresis Differential Diagnosis Differential Diagnosis: sepsis. CHF exacerbation Medical Records Medical records reviewed: Yes I reviewed the external patient's medical records. Vital Signs Vital Signs: Vital Signs Temperature 36.6 C 04/10/25 18:51 Pulse Rate 95 04/10/25 18:51 Respiratory Rate 20 04/10/25 18:51 Blood Pressure 171/93 H 04/10/25 18:51 Pulse Oximetry 96 04/10/25 18:51 Oxygen Delivery Room Air 04/10/25 18:51 Temperature 36.6 C 04/10/25 18:51 Pulse Rate 95 04/10/25 18:51 Respiratory Rate 20 04/10/25 18:51 Blood Pressure 171/93 H 04/10/25 18:51 Pulse Oximetry 96 04/10/25 18:51 Oxygen Delivery Room Air 04/10/25 18:51 Lab Data Lab results reviewed: Yes I reviewed the patient's lab results. 04/10/25 19:46 04/10/25 19:46 Labs: Lab Results 04/10/25 04/10/25 04/10/25 Range/Units 19:46 19:47 19:51 WBC 9.0 (4.8-10.8) K/mm3 RBC 4.33 (4.20-5.40) M/mm3 Hgb 13.8 (11.7-13.8) g/dL Hct 42.3 H (35.0-42.0) % MCV 97.7 (78.0-102.0) fL MCH 31.9 H (27.0-31.0) pg MCHC 32.6 (32-36) g/dL RDW 12.2 (11.6-14.4) % Plt Count 330 (150-420) K/mm3 MPV 9.5 (9.2-11.8) fl Immature Gran % (Auto) 0.4 H (0.0-0.0) % Neut % (Auto) 71.1 H (50.0-70.0) % Lymph % (Auto) 19.5 (18.0-42.0) % [place] % (Auto) 8.0 (2.0-11.0) % Eos % (Auto) 0.7 L (1.0-6.0) % Baso % (Auto) 0.3 (0.0-1.0) % Lymph # (Auto) 1.75 (1.10-4.50) K/mm3 [place] # (Auto) 0.72 (0.10-0.90) K/mm3 Eos # (Auto) 0.06 (0.02-0.50) K/mm3 Baso # (Auto) 0.03 (0.00-0.10) K/mm3 Abs Immat Gran (auto) 0.04 H (0.00-0.00) K/mm3 Absolute Neuts (auto) 6.37 (1.70-7.20) K/mm3 Absolute Nucleated RBC 0.00 (0.00-0.00) K/mm3 Nucleated RBC % 0.0 (0-0.0) % Sodium 138 (137-145) mmol/L Potassium 3.1 L (3.4-5.0) mmol/L Chloride 95 L (98-107) mmol/L Carbon Dioxide 34 H (22-30) mmol/L Anion Gap 9 (4-12) mmol/L BUN 24 H D (7-17) mg/dL Creatinine 1.08 H (0.7-1.0) mg/dL Estim Creat Clear Calc 44 ml/min Estimated GFR 49 L (59 - ) Glucose 146 H (65-110) mg/dL Calculated Osmolality 293 (285-295) mOsm/kg Lactic Acid 2.8 H (0.4-2.0) mmol/L Calcium 9.4 (8.4-10.2) mg/dL Total Bilirubin 0.3 (0.2-1.3) mg/dL AST 36 (14-36) U/L ALT 31 (6-35) U/L Alkaline Phosphatase 84 (38-126) U/L Troponin I 0.020 (0.000-0.034) ng/mL NT-Pro-B Natriuret Pep 94 (19.9-100) pg/mL Total Protein 7.3 (6.3-8.2) g/dL Albumin 4.3 (3.5-5.1) g/dL Lipase 97 (23-300) U/L Urine Color Light yellow (Yellow) Urine Appearance Clear (Clear) Urine pH 6.0 (5.0-8.0) Ur Specific [place] 1.010 (1.010-1.020) Urine Protein Negative (Negative) Urine Glucose (UA) Negative (Negative) Urine Ketones Negative (Negative) Ur Blood (Man) Negative (Negative) Urine Nitrate Negative (Negative) Urine Bilirubin Negative (Negative) Urine Urobilinogen 0.2 (0.2-1.0) mg/dL Leukocyte Esterase Rfl Negative (Negative) MYRTLE/UL ECG Data EKG #1: ECG completion date: 04/10/25 ECG completion time: 19:41 Interpretation: normal sinus rhythm. Normal axis. Left ventricular hypertrophy. Poor R-wave progression in anterior leads. No ST elevation noted. Discharge Plan Discharge Clinical Impression: Anxiety, Nausea, Hypokalemia CKD (chronic kidney disease) stage 3, GFR 30-59 ml/min Qualifiers: Chronic kidney disease stage 3 subtype: stage 3a (GFR 45-59) Qualified Code(s): N18.31 - Chronic kidney disease, stage 3a Patient Disposition: Home Condition: Stable Instructions: Antibiotic Form, Chronic Kidney Disease (ED), Hypertension (ED), Anxiety (ED) Patient Language: Hungarian Prescriptions: No Action losartan 100 mg tablet 100 mg PO DAILY pravastatin [Pravachol] 40 mg tablet 40 mg PO HS paroxetine HCl 20 mg tablet 40 mg PO QAM levothyroxine 200 mcg tablet 200 mcg PO QAM Rx Instructions: 5 DAYS/WEEK 200MCG, SAT AND SUN 100 MCG PO pantoprazole 40 mg tablet,delayed release (DR/EC) 40 mg PO QAM fluticasone propionate 50 mcg/actuation blister with device 2 inhalation INHALATION HS PRN (Reason: Congestion) furosemide 40 mg tablet 60 mg PO QAM ipratropium bromide 42 mcg (0.06 %) spray,non-aerosol 2 spray NASAL BID PRN (Reason: Congestion) famotidine 20 mg tablet 20 mg PO DAILY budesonide-formoterol [Symbicort] 80-4.5 mcg/actuation HFA aerosol inhaler 2 puff inhalation Q12H metoprolol tartrate 25 mg tablet 25 mg PO BID Patient Comments: per patient home medication list 03/24/21 ICaps AREDS2 (copper citrate) 250 mg-200 unit -12.5 mg-1 mg tablet 1 tablet PO BID flaxseed oil 1,000 mg capsule 1,000 mg PO BID Rx Instructions: administer with a meal gabapentin 100 mg capsule 100 mg PO TID zoledronic [id number]-[id number] [Reclast] 5 mg/100 mL piggyback 1 ea IV .Yearly latanoprost 0.005 % drops 1 drp LEFT EYE HS potassium chloride 10 mEq tablet extended release 10 meq PO DAILY hydrochlorothiazide 25 mg tablet 12.5 mg PO DAILY isosorbide mononitrate 30 mg tablet extended release 24 hr 90 mg PO QAM cyanocobalamin (vitamin B-12) [Vitamin B-12] 500 mcg Lozenge 500 mcg PO DAILY acetaminophen 500 mg Tablet 1,000 mg PO HS aspirin 81 mg Tablet,Chewable 1 tablet PO DAILY Patient Comments: Dr Cantor said ok to stay on asa per pt budesonide-formoterol [Symbicort] 80-4.5 mcg/actuation HFA aerosol inhaler 1 inh inhalation QID oxycodone 5 mg tablet 2.5 mg PO Q4H PRN (Reason: pain) Qty: 20 0RF cephalexin 500 mg capsule 500 mg PO Q6H Qty: 4 0RF Follow-up/Referrals: Janeth Viramontes MD [Primary Care Provider] - Time of Disposition: 20:35
--- NOTE | 2025-04-10 19:02 | PC.NURSE ---
report to cori tobin
--- OUTSIDE RECORDS SUMMARY | 2025-04-10 19:24 | XMS_ITS | Referral Summary ---
Author Organization [facility] [address] [place] [address] Address [address] [facility] [address] [place] [address] Care Team Providers Care Butter Printer Name Role Phone Janeth Viramontes MD Primary Care Provider Encounters Date Type Department Care Team Description 02/08/2025 1:00 PM CDT Office Visit [facility] Cardiology [address] [facility] [address] [place] [address] Christine Mendoza NP Coronary artery disease of [place] artery of [place] heart with stable angina pectoris (Primary Dx); [...] by mouth daily Active cholecalciferol (VITAMIN D-3) 79442 unit capsule Take 1 capsule (10,000 Units [...] mg SL tabletIndication s:Coronary artery disease of [place] artery of [place] heart with stable angina pectoris DISSOLVE ONE [...] (04/01/2020): Added automatically from request for surgery [id number] Palpitations 01/09/2020 Chronic fatigue 01/09/2020 Preoperative cardiovascular examination 07/04/20 19 OWENS (dyspnea on exertion) 04/20/2018 Orthostatic hypotension 10/19/2016 Overview (02/18/2017): Orthostatic hypotension 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 (02/18/2017): Coronary vasospasm Thoracic back pain 12/29/2015 Overview (02/18/2017): Thoracic back pain, unspecified back pain laterality Coronary arteriosclerosis in [place] artery 11/04 Overview (02/18/2017): Coronary artery disease involving [place] coronary artery of [place] heart with other form of angina pectoris Left ventricular dilatation 11/04/2015 Overview (02/18/2017): LVE (left ventricular enlargement) Coronary artery disease invo lving [place] coronary artery of [place] heart with angina pectoris with documented spasm [...] on file 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 Gender Identity Female 05/06/2020 3:45 PM CDT Sexual Orientation Straight 01/31/2020 9: 43 AM CDT Last Filed Vital Signs Vital Sign Reading Time Taken Comments Blood Pressure 128/68 02/08/2025 12:51 PM CDT Pulse 76 02/08/2025 12:51 PM CDT Temperature 36.8 C (98.3 F) 04/02/2020 12:00 PM CDT Respiratory Rate 16 11/10/2021 9:02 AM BREWERY REPRESENTATIVE Oxygen Saturation 95% 02/08/2025 12: 51 PM CDT Inhaled Oxygen Concentration - - Weight 96.9 kg (213 lb 11.2 oz) 025 12:51 PM CDT Height 167.6 cm (5' 6) 02/08/2025 12:5 1 PM CDT Body Mass Index 34.49 02/08/2025 12:51 PM CDT Plan of Treatment Not on file Medical Devices Explanted Type Area Paper Machine Supervisor Device Identifier Shelf Expiration Date Model / Serial / Lot [employer] 6571 Chris Flexi-Stent 7fr 3cm Small Pigtail Flexible .035in Stent - [id number] Implanted:Qty : 1 on 03/31/2020 by Ricky Jeter MD at [facility] Explanted:Qty : 1 on 04/02/2020 by Ricky Jeter MD at [facility] Stent N/A: Pancreas [employer] 09/13/2024 [id number] / / [id number] Conmed Purnima [id number] [place] Viabil 10mm 8.5fr 6cm 200cm Fully Covered Self Expand Pull - [id number] - [id number] Implanted:Qty : 1 on 03/31/2020 by Ricky Jeter MD at [facility] Explanted:Qty : 1 on 04/02/2020 by Ricky Jeter MD at [facility] Stent N/A: Bile Duct Conmed Purnima 12/20/2022 [id number] / [id number] / Insurance MEDICARE [facility] MEDICARE BLUE CROSS MEDICARE SUPPLEMENT Advance Directives For more information, please contact: [phone] * Full Code (Latest Code Status on File) Date Activated Date Inactivated Comments 03/31/2020 8:47 AM 04/02/2020 5:04 PM Care Teams Butter Printer Relationship Specialty Start Date End Date Janeth Viramontes MD [address] [id number] PCP - General 09/16/11
--- OUTSIDE RECORDS SUMMARY | 2025-04-10 19:24 | XMS_ITS | Clinical Summary ---
Author Organization [facility] [address] [facility] [address] [facility] [address] [place] [address] Care Team Providers Care Nursing Home Admissions Director Name Role Phone Janeth Viramontes MD Primary Care Provider [phone] Allergies Active Allergy Reactions Criticality Noted Date [...] by mouth daily Active cholecalciferol (VITAMIN D-3) 46187 unit capsule Take 1 capsule (10,000 Units [...] mg SL tabletIndication s:Coronary artery disease of [place] artery of [place] heart with stable angina pectoris DISSOLVE ONE [...] (04/01/2020): Added automatically from request for surgery [id number] Palpitations 01/09/2020 Chronic fatigue 01/09/2020 Preoperative cardiovascular examination 07/04/20 19 OWENS (dyspnea on exertion) 04/20/2018 Orthostatic hypotension 10/19/2016 Overview (02/18/2017): Orthostatic hypotension 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 (02/18/2017): Coronary vasospasm Thoracic back pain 12/29/2015 Overview (02/18/2017): Thoracic back pain, unspecified back pain laterality Coronary arteriosclerosis in [place] artery 11/04 Overview (02/18/2017): Coronary artery disease involving [place] coronary artery of [place] heart with other form of angina pectoris Left ventricular dilatation 11/04/2015 Overview (02/18/2017): LVE (left ventricular enlargement) Coronary artery disease invo lving [place] coronary artery of [place] heart with angina pectoris with documented spasm [...] Description 02/08/2025 1:00 PM CDT Office Visit [facility] Cardiology [address] [place] [address] Christine Mendoza NP Coronary artery disease of [place] artery of [place] heart with stable angina pectoris (Primary Dx); [...] on file 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 Gender Identity Female 05/06/2020 3:45 PM CDT Sexual Orientation Straight 01/31/2020 9: 43 AM CDT Obstetrics History Last Filed Vital Signs Vital Sign Reading Time Taken Comments Blood Pressure 128/68 02/08/2025 12:51 PM CDT Pulse 76 02/08/2025 12:51 PM CDT Temperature 36.8 C (98.3 F) 04/02/2020 12:00 PM CDT Respiratory Rate 16 11/10/2021 9:02 AM EXTRUDER OPERATOR MULTIPLE Oxygen Saturation 95% 02/08/2025 12: 51 PM [...] history exists Medical Devices Explanted Type Area Service Operator Device Identifier Shelf Expiration Date Model / Serial / Lot [employer] 6571 Chris Flexi-Stent 7fr 3cm Small Pigtail Flexible .035in Stent - [id number] Implanted:Qty : 1 on 03/31/2020 by Ricky Jeter MD at [facility] Explanted:Qty : 1 on 04/02/2020 by Ricky Jeter MD at [facility] Stent N/A: Pancreas [employer] 09/13/2024 [id number] / / [id number] Conmed Purnima [id number] [place] Viabil 10mm 8.5fr 6cm 200cm Fully Covered Self Expand Pull - [id number] - [id number] Implanted:Qty : 1 on 03/31/2020 by Ricky Jeter MD at [facility] Explanted:Qty : 1 on 04/02/2020 by Ricky Jeter MD at [facility] Stent N/A: Bile Duct [employer]med Purnima 12/20/2022 [id number] / [id number] / Insurance MEDICARE MEDICARE [facility] MEDICARE BLUE CROSS MEDICARE SUPPLEMENT Advance Directives For more information, please contact: [phone] * Full Code (Latest Code Status on File) Date Activated Date Inactivated Comments 03/31/2020 8:47 AM 04/02/2020 5:04 PM Care Teams Nursing Home Admissions Director Relationship Specialty Start Date End Date Janeth Viramontes MD [address] [place] [address] [facility] - General 09/16/11
--- NOTE | 2025-04-10 19:30 | ECG_ITS ---
Test Date: 2025-04-10 19:41:37 Measurements Intervals [place] Rate: 79 P: 67 [place]: 167 QRS: -3 QRSD: 96 T: 38 QT: 403 QTc: 463 Interpretive Statements SINUS RHYTHM MODERATE VOLTAGE CRITERIA FOR LVH, CONSIDER NORMAL VARIANT [MEETS CRITERIA IN ONE OF: R(aVL), S(V1), R(V5), R(V5/V6)+S(V1)] cannot rule out high lateral infarct of indeterminate age Compared to ECG 09/19/2024 16:35:02 Ectopic atrial rhythm no longer present Electronically Signed On 04-11-2025 15:17:45 CDT by Fer Muller M.D.
[2025-04-10 19:50] LABS: Basophils Absolute Auto 0.03 K/mm3 (0.00-0.10); Basophils Percent Auto 0.3 % (0.0-1.0); Eosinophils Absolute Auto 0.06 K/mm3 (0.02-0.50); Eosinophils Percent Auto 0.7 % (1.0-6.0); Hematocrit 42.3 % (35.0-42.0); Hemoglobin 13.8 g/dL (11.7-13.8); Immature Granulocyte Absolute 0.04 K/mm3 (0.00-0.00); Immature Granulocyte Percent A 0.4 % (0.0-0.0); Lymphocytes Absolute Auto 1.75 K/mm3 (1.10-4.50); Lymphocytes Percent Auto 19.5 % (18.0-42.0); Mean Corpuscular HGB Conc 32.6 g/dL (32-36); Mean Corpuscular Hemoglobin 31.9 pg (27.0-31.0); Mean Corpuscular Volume 97.7 fL (78.0-102.0); Mean Platelet Volume 9.5 fl (9.2-11.8); Monocytes Absolute Auto 0.72 K/mm3 (0.10-0.90); Neutrophils Absolute Auto 6.37 K/mm3 (1.70-7.20); Neutrophils Percent Auto 71.1 % (50.0-70.0); Platelet Count Result 330 K/mm3 (150-420); Red Blood Count 4.33 M/mm3 (4.20-5.40); Red Cell Distribution Width 12.2 % (11.6-14.4)
[2025-04-10 20:00] VITALS: BP 152/63; PULSE 80; RESP 20; O2SAT 95
[2025-04-10 20:02] LABS: Add Urine Microscopic? NO; Appearance Urine Clear (Clear); Bilirubin Urine Negative (Negative); Blood Urine Negative (Negative); Color Urine Light Yellow (Yellow); Glucose Urine UA Negative (Negative); Ketones Urine Negative (Negative); Leukocyte Esterase Ur Negative LEU/UL (Negative); Nitrate Urine Negative (Negative); Protein Urine Negative (Negative); Urobilinogen Urine 0.2 mg/dL (0.2-1.0)
[2025-04-10 20:07] LABS: Alanine Aminotransferase 31 U/L (6-35); Albumin Level 4.3 g/dL (3.5-5.1); Alkaline Phosphatase 84 U/L (38-126); Anion Gap 9 mmol/L (4-12); Aspartate Amino Transferase 36 U/L (14-36); Bilirubin,Total 0.3 mg/dL (0.2-1.3); Blood Urea Nitrogen 24 mg/dL (7-17); Calcium 9.4 mg/dL (8.4-10.2); Carbon Dioxide 34 mmol/L (22-30); Chloride 95 mmol/L (98-107); Estimated CRCL calculation 44 ml/min; Estimated Glomerular Filt Rate 49; Glucose 146 mg/dL (65-110); Lipase 97 U/L (23-300); Osmolality Calculated 293 mOsm/kg (285-295); Potassium 3.1 mmol/L (3.4-5.0); Sodium 138 mmol/L (137-145); Total Protein 7.3 g/dL (6.3-8.2)
[2025-04-10 20:07] LABS: Lactic Acid Reflex 2.8 mmol/L (0.4-2.0)
[2025-04-10 20:19] LABS: NT Pro B Type Natriuretic Pept 94 pg/mL (19.9-100)
[2025-04-10] MEDS: POTASSIUM CHLORIDE 20 MEQ ER TABLET 40 MEQ PO (20:29)
[2025-04-10 20:30] VITALS: BP 146/62; PULSE 78; RESP 19; O2SAT 93
[2025-04-10 20:50] VITALS: BP 139/61; PULSE 77; RESP 20; O2SAT 93
[2025-04-10 21:48] LABS: Reflex Lactic Acid Yes or No Add Lactic
== END 2025-04-10 20:57 | disposition home or self-care (01) ==
PROVIDERS: Emergency Provider Internal Medicine Critical Care Medicine; PCP Internal Medicine
DX: I13.0 Hypertensive heart and chronic kidney disease with heart failure and stage 1 through stage 4 chronic kidney disease, or unspecified chronic kidney disease (principal); I50.9 Heart failure, unspecified; N18.31 Chronic kidney disease, stage 3a; F41.9 Anxiety disorder, unspecified; R11.0 Nausea; E87.6 Hypokalemia; E03.9 Hypothyroidism, unspecified; E78.5 Hyperlipidemia, unspecified
CPT/HCPCS: 36415; 71045; 80053; 81003; 83605; 83690; 83880; 84484; 85025; 93005; 99284; A9270

== ENCOUNTER 2025-04-12 12:35 | Outpatient (CLI) | payer MEDICARE, SELFPAY ==
--- OUTSIDE RECORDS SUMMARY | 2025-04-12 12:39 | XMS_ITS | Patient Health Record ---
Author Organization [facility] Address [address] [place], [place] [id number] Care Team Providers Care Java Tech Lead Name Role Phone LISA BUTLER Unavailable [phone] Janeth Viramontes Unavailable Unavailable Allergies Allergen (clinical [...] sodium 0.2 MG Oral Tablet *Reorder from [facility] for eRx and Interaction Alerts* 0 Active Lisinopril 10 MG Oral Tablet ORAL lisinopril 10 MG Oral TabletOriginal Medicationlisinopril 10 MG Oral Tablet *Reorder from [facility] for eRx and Interaction Alerts* 0 Active urea 400 MG/ML Topical Cream CUTANEOUS urea 400 MG/ML Topical CreamOriginal Medicationurea 400 MG/ML Topical Cream *Reorder from [facility] for eRx and Interaction Alerts* 3 Active 12 HR ranolazine 1000 MG Extended Release Oral Tablet [Ranexa] ORAL 12 HR ranolazine 1000 MG Extended Release Oral Tablet [Ranexa]Original [id number] HR ranolazine 1000 MG Extended Release Oral Tablet [Ranexa] *Reorder from [facility] for eRx and Interaction Alerts* 6 Active Famotidine 20 MG Oral Tablet ORAL famotidine 20 MG Oral TabletOriginal Medicationfamotidine 20 MG Oral Tablet *Reorder from [facility] for eRx and Interaction Alerts* 0 Active Medrol Dosepak ORAL Medrol DosepakOr iginal MedicationMedrol Dosepak *Reorder from [facility] for eRx and Interaction Alerts* 3 Active Isosorbide Mononitrate 20 MG Oral Tablet ORAL isosorbide mononitrate 20 MG Oral TabletOriginal Medicationisosorbide mononitrate 20 MG Oral Tablet *Reorder from [facility] for eRx and Interaction Alerts* 0 Active pantoprazole 40 MG Delayed Release Oral Tablet ORAL pantoprazole 40 MG Delayed Release Oral TabletOriginal Medicationpantoprazole 40 MG Delayed Release Oral Tablet *Reorder from [facility] for eRx and Interaction Alerts* 0 Active calcium carbonate 600 MG / cholecalciferol 125 UNT Oral Tablet ORAL calcium carbonate 600 MG / cholecalciferol 125 UNT Oral TabletOriginal Medicationcalcium carbonate 600 MG / cholecalciferol 125 UNT Oral Tablet *Reorder from [facility] for eRx and Interaction Alerts* 6 Active ciclopirox 80 MG/ML Topical Solution ciclopirox 80 MG/ML Topical SolutionOriginal Medicationciclopirox 80 MG/ML Topical Solution *Reorder from [facility] for eRx and Interaction Alerts* 7 Active amlodipine 10 MG Oral Tablet ORAL amlodipine 10 MG Oral TabletOriginal Medicationamlodipine 10 MG Oral Tablet *Reorder from [facility] for eRx and Interaction Alerts* 0 Active aspirin 81 MG Delayed Release Oral Tablet ORAL aspirin 81 MG Delayed Release Oral TabletOriginal Medicationaspirin 81 MG Delayed Release Oral Tablet *Reorder from [facility] for eRx and Interaction Alerts* 6 Active Furosemide 40 MG Oral Tablet ORAL furosemide 40 MG Oral TabletOriginal Medicationfurosemide 40 MG Oral Tablet *Reorder from [facility] for eRx and Interaction Alerts* 0 Active clotrimazole 10 MG/ML Topical Solution CUTANEOUS clotrimazole 10 MG/ML Topical SolutionOriginal Medicationclotrimazole 10 MG/ML Topical Solution *Reorder from [facility] for eRx and Interaction Alerts* 4 Active ipratropium bromide 0.042 MG/ACTUAT Metered Dose Nasal [place] ipratropium bromide 0.042 MG/ACTUAT Metered Dose Nasal SprayOriginal Medicationipratropium bromide 0.042 MG/ACTUAT Metered Dose Nasal [place] *Reorder from [facility] for eRx and Interaction Alerts* 0 Active Immunizations Vaccine Route Administration Date Status Comme nts Influenza, high dose seasonal Unknown 09/09/2023 Admini stered Encounters Encounter Location Date Provider Diagnosis [facility] [address] [place] [address] [id number] 03/18/2025 LISA SNOOK Tinea unguium B35.1 ; Pain in right foot M79.671 ; Pain in left foot M79.672 ; Atherosclerosis of [place] arteries of extremities with intermittent claudication, bilateral legs I70.213 and Acquired keratosis [keratoderma] palmaris et plantaris L85.1 [facility] [address] [place] [address] [id number] 06/25/2024 LISA SNOOK Tinea unguium B35.1 ; Pain in right foot M79.671 ; Pain in left foot M79.672 ; Atherosclerosis of [place] arteries of extremities with intermittent claudication, bilateral legs I70.213 and Acquired keratosis [keratoderma] palmaris et plantaris L85.1 [facility] [address] [place] [address] [id number] 09/17/2024 LISA SNOOK Tinea unguium B35.1 ; Pain in right toe(s) M79.674 ; Pain in left toe(s) M79.675 and Atherosclerosis of [place] arteries of extremities with intermittent claudication, bilateral legs I70.213 [facility] [address] [place] [address] [id number] 12/17/2024 LISA SNOOK Tinea unguium B35.1 ; Pain in right foot M79.671 ; Pain in left foot M79.672 ; Atherosclerosis of [place] arteries of extremities with intermittent claudication, bilateral [...] foot (ICD-10 - M79.672) 06/25/2024 Atherosclerosis of [place] arteries of extremities with intermittent claudication, bilateral legs (ICD-10 - I70.213) 09/17/2024 Atherosclerosis of [place] arteries of extremities with intermittent claudication, bilateral legs (ICD-10 - I70.213) 12/17/2024 Atherosclerosis of [place] arteries of extremities with intermittent claudication, bilateral legs (ICD-10 - I70.213) 03/18/2025 Atherosclerosis of [place] arteries of extremities with intermittent claudication, bilateral [...] Appt Details Provider Name:LISA BUTLER, 01:00:00 PM, [address], [facility], [place], [place], [id number], Insurance Providers Payer Name Payer Address Payer Phone Subscriber Number Group Number Insured Name Patient Relationship to Insured Coverage Start Date Coverage End Date Medicare Part B [place] [address] [place] [address] [id number] FREDDIE MARTÍNEZ Self - patient is the insured [facility] ATTN CLAIMS [address] [place] [address] [id number] FREDDIE MARTÍNEZ Self - patient is the insured
--- OUTSIDE RECORDS SUMMARY | 2025-04-12 12:39 | XMS_ITS | Clinical Summary ---
Author Organization [facility] [address] [facility] [address] Address [address] [facility] [address] [place] [address] Care Team Providers Care Pharmacy Assistant Name Role Phone Janeth Viramontes MD Primary [...] by mouth daily Active cholecalciferol (VITAMIN D-3) 24553 unit capsule Take 1 capsule (10,000 Units [...] mg SL tabletIndication s:Coronary artery disease of [place] artery of [place] heart with stable angina pectoris DISSOLVE ONE [...] (04/01/2020): Added automatically from request for surgery [id number] Palpitations 01/09/2020 Chronic fatigue 01/09/2020 Preoperative cardiovascular examination 07/04/20 19 OWENS (dyspnea on exertion) 04/20/2018 Orthostatic hypotension 10/19/2016 Overview (02/18/2017): Orthostatic hypotension 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 (02/18/2017): Coronary vasospasm Thoracic back pain 12/29/2015 Overview (02/18/2017): Thoracic back pain, unspecified back pain laterality Coronary arteriosclerosis in [place] artery 11/04 Overview (02/18/2017): Coronary artery disease involving [place] coronary artery of [place] heart with other form of angina pectoris Left ventricular dilatation 11/04/2015 Overview (02/18/2017): LVE (left ventricular enlargement) Coronary artery disease invo lving [place] coronary artery of [place] heart with angina pectoris with documented spasm [...] Description 02/08/2025 1:00 PM CDT Office Visit [facility] Card[facility] [address] [place] [address] Christine Mendoza NP Coronary artery disease of [place] artery of [place] heart with stable angina pectoris (Primary Dx); [...] on file Legal 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 Gender Identity Female 05/06/2020 3:45 PM CDT Sexual Orientation Straight 01/31/2020 9: 43 AM CDT Obstetrics History Last Filed Vital Signs Vital Sign Reading Time Taken Comments Blood Pressure 128/68 02/08/2025 12:51 PM CDT Pulse 76 02/08/2025 12:51 PM CDT Temperature 36.8 C (98.3 F) 04/02/2020 12:00 PM CDT Respiratory Rate 16 11/10/2021 9:02 AM TERRAPIN FISHER Oxygen Saturation 95% 02/08/2025 12: 51 PM [...] history exists Medical Devices Explanted Type Area Dictating Machine Typist Device Identifier Shelf Expiration Date Model / Serial / Lot [employer] Inc 6571 Chris Flexi-Stent 7fr 3cm Small Pigtail Flexible .035in Stent - [id number] Implanted:Qty : 1 on 03/31/2020 by Ricky Jeter MD at [facility] Explanted:Qty : 1 on 04/02/2020 by Ricky Jeter MD at [facility] Stent N/A: Pancreas [employer] 09/13/2024 [id number] / / [id number] Conmed Purnima [id number] [place] Viabil 10mm 8.5fr 6cm 200cm Fully Covered Self Expand Pull - [id number] - [id number] Implanted:Qty : 1 on 03/31/2020 by Ricky Jeter MD at [facility] Explanted:Qty : 1 on 04/02/2020 by Ricky Jeter MD at [facility] Stent N/A: Bile Duct Conmed Purnima 12/20/2022 [id number] / [id number] / Insurance MEDICARE MEDICARE [facility] MEDICARE BLUE CROSS MEDICARE SUPPLEMENT Advance Directives For more information, please contact: [phone] * Full Code (Latest Code Status on File) Date Activated Date Inactivated Comments 03/31/2020 8:47 AM 04/02/2020 5:04 PM Care Teams Pharmacy Assistant Relationship Specialty Start Date End Date Janeth Viramontes MD [address] [place] [address] [facility] - General 09/16/11
--- OUTSIDE RECORDS SUMMARY | 2025-04-12 12:39 | XMS_ITS | Referral Summary ---
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 (Primary Dx); [...] by mouth daily Active cholecalciferol (VITAMIN D-3) 31378 unit capsule Take 1 capsule (10,000 Units [...] mg SL tabletIndication s: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 DISSOLVE ONE [...] (04/01/2020): Added automatically from request for surgery [id number] Palpitations 01/09/2020 Chronic fatigue 01/09/2020 Preoperative cardiovascular examination 07/04/20 19 OWENS (dyspnea on exertion) 04/20/2018 Orthostatic hypotension 10/19/2016 Overview (02/18/2017): Orthostatic hypotension 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 (02/18/2017): Coronary vasospasm Thoracic back pain 12/29/2015 Overview (02/18/2017): Thoracic back pain, unspecified back pain laterality Coronary arteriosclerosis in kaw artery 11/04 Overview (02/18/2017): Coronary artery disease involving kaw coronary artery of kaw heart with other form of angina pectoris Left ventricular dilatation 11/04/2015 Overview (02/18/2017): LVE (left ventricular enlargement) Coronary artery disease invo lving kaw coronary artery of kaw heart with angina pectoris with documented spasm [...] on file 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 Gender Identity Female 05/06/2020 3:45 PM CDT Sexual Orientation Straight 01/31/2020 9: 43 AM CDT Last Filed Vital Signs Vital Sign Reading Time Taken Comments Blood Pressure 128/68 02/08/2025 12:51 PM CDT Pulse 76 02/08/2025 12:51 PM CDT Temperature 36.8 C (98.3 F) 04/02/2020 12:00 PM CDT Respiratory Rate 16 11/10/2021 9:02 AM CHEMISTRY TECHNICIAN Oxygen Saturation 95% 02/08/2025 12: 51 PM CDT Inhaled Oxygen Concentration - - Weight 96.9 kg (213 lb 11.2 oz) 025 12:51 PM CDT Height 167.6 cm (5' 6) 02/08/2025 12:5 1 PM CDT Body Mass Index 34.49 02/08/2025 12:51 PM CDT Plan of Treatment Not on file Medical Devices Explanted Type Area Senior Health Physics Technician Device Identifier Shelf Expiration Date Model / Serial / Lot [employer] 6571 Chris Flexi-Stent 7fr 3cm Small Pigtail Flexible .035in Stent - [id number] Implanted:Qty : 1 on 03/31/2020 by Ricky Jeter MD at [facility] Explanted:Qty : 1 on 04/02/2020 by Ricky Jeter MD at [facility] Stent N/A: Pancreas [employer] 09/13/2024 [id number] / / [id number] Conmed Purnima [id number] [place] Viabil 10mm 8.5fr 6cm 200cm Fully Covered Self Expand Pull - [id number] - [id number] Implanted:Qty : 1 on 03/31/2020 by Ricky Jeter MD at [facility] Explanted:Qty : 1 on 04/02/2020 by Ricky Jeter MD at [facility] Stent N/A: Bile Duct Conmed Purnima 12/20/2022 [id number] / [id number] / Insurance MEDICARE [facility] MEDICARE BLUE CROSS MEDICARE SUPPLEMENT Advance Directives For more information, please contact: [phone] * Full Code (Latest Code Status on File) Date Activated Date Inactivated Comments 03/31/2020 8:47 AM 04/02/2020 5:04 PM Care Teams Supervisor Sample Preparation Relationship Specialty Start Date End Date Janeth Viramontes MD [address] [id number] PCP - General 09/16/11
--- OUTSIDE RECORDS SUMMARY | 2025-04-12 12:39 | XMS_ITS | Patient Health Record ---
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
--- OUTSIDE RECORDS SUMMARY | 2025-04-12 12:39 | XMS_ITS | Data Portability ---
Author Organization [place] - [facility], Main Office Address [address] [place] [address] Care Team Providers Care Cardiac Cath Tech Name Role Phone RUBENS MONTOYA Primary Care [...] more than half the time spent in vzfu-xo-vvkl care. Not available 03/16/2023 10:23:27 04/07/2023 04/07/2023 [...] recommended that she take Citracal +D to [place] tablets a day in the time being. [...] than half of this time spent in xzhe-qq-vius care. Not available 04/07/2023 19:53:25 04/22/2023 04/22/2023 [...] patient more than half of this in ufmw-fd-zuza conversation Not available 04/22/2023 13:40:48 05/11/2023 05/11/2023 [...] patient more than half of this in rizs-ic-gpxp conversation Not available 05/11/2023 10:09:34 06/03/2023 06/03/2023 [...] patient more than half of this in xtow-mb-vlgh conversation Not available 06/03/2023 11:06:01 Plan of Treatment Reminders Order Date Submit Date Provider Last Modified By Organization Details Last Modified Time Details Appointments None recorded. Lab None recorded. Referral physical therapist referral - see attached order- please schedule pt 2022 023 [facility], [address] [place], [address], 3 14:21:10 Procedures injection/a spiration joint/bursa (PROC) - in office procedure, administere d by provider 2022 023 [email or web address] In-Office Order, Internal Use Only DO Not Attach Compendium DO Not Attach Compendium, Do Not Delete/merge, [address] 09:57:30 Surgeries None recorded. Imaging XR, shoulder 2022 023 [facility] [place], [address], [place], [address], 3 11:30:58 XR, shoulder 2022 023 [facility] [place], [address], [place], [address], 3 13:10:33 XR, elbow 2022 023 [email or web address] [facility] [place], [address], [place], [address], 3 13:52:51 XR, shoulder 2022 023 [facility] [place], [address], [place], [address], 3 12:30:32 XR, wrist 2022 023 [email or web address] [facility] [place], [address], [place], [address], 3 13:52:51 Medication Orders Kenalog 10 mg/mL suspension for injection 2022 023 [facility], [address] [place], [address], 3 13:10:33 ropivacaine (PF) 5 mg/mL (0.5 %) injection solution 2022 023 [facility], [address] [place], [address], 13:10:33 Patient TargetsNo targets recorded. Patient InstructionsNo [...] No observ ation record ed. [facility] [place] [address], [place], [id number], 04/22/2023 13:39:16 04/22/20 XR, wrist No observ ation record ed. [facility] [place] [address], [place], [id number], 04/22/2023 13:38:39 06/09/20 23 XR, elbow No observ ation record ed. [facility] [place] [address], [id number], 04/22/2023 13:38:16 05/11/20 23 XR, shoul janet No observ ation record ed. [facility] [place] [address], [id number], 05/11/2023 10:06:48 06/03/20 23 XR, shoul janet No observ ation record ed. [facility] [place] [address], [id number], 06/03/2023 11:03:45 Result Notes None recorded. Problems Name Problem SNOMED Code Status Onset Date Resolution Date Notes Provider Name and Address Organization Details Recorded Time History of total knee arthroplas ty 1282966408234 Active 2021 Not Available [facility] 3 00:55:20 Pain of left shoulder joint 3489406367360 9109 Active 2021 Not Available [facility] 3 00:55:20 Stable angina 217599944 Active 2018 Not Available [facility] 3 00:55:20 Enthesopat hy of hip region 51899733 Active Not Available [facility] 3 00:55:20 Osteoarthr itis of left knee joint 0164055866165 09 Active 2018 Not Available [facility] 3 00:55:20 Osteoarthr itis 426261378 Active Not Available [facility] 3 00:55:20 Pain of left hip joint 2766370476236 00 Active 2022 FREDERICK Mobley, [facility] 3 10:18:52 Pain of right shoulder joint 0561034513621 9100 Active 2022 FREDERICK Mobley, [place] [facility] 3 10:19:32 Partial thickness rotator cuff tear 160923168 Active 2022 Karlie Randall RMA null, [facility] 3 09:54:19 Vitamin D deficiency 65561259 Active 2022 Nava Jose, EXPRESS CLERK null, [facility] 3 13:32:39 Closed fracture of upper end of humerus 37368073 Active 2022 Karlie Randall RMA null, [facility] 3 12:06:45 Pain of left elbow joint 0905453636388 9104 Active 2022 Karlie Randall RMA null, [facility] 3 12:07:11 Pain of left wrist 0597161247659 02 Active 2022 Karlie Randall RMA [place], [facility] 3 12:53:17 Problem Notes None recorded. Medical Equipment None Reported. Allergies Allergen ID Allergen Name Allergen Category Reaction Reaction Severity Criticality Documentation Date Start Date Code Code System Note Provider Name and Address Organization Details Recorded Time 1368 latex environme nt,medica tion rash Not available Not available 01/12/2023 03534 91 RxNorm BLIST ERS Not Available [facility] 3 01:02:40 1369 bacitraci n medicatio n Not available Not available Not available 01/12/20232018 1291 RxNorm cause d infec teed 2nd degre e no rash or sob Not Available [facility] 3 01:02:40 Medications Name Sig [...] suspension for injection in office 2022 active [facility]: 0003- 0494- 20 Not Available Not Available [...] administe red by the provider 06/12 completed [facility]: 0409- 4276- 17 Not Available Not Available [...] %) injection solution in office 2022 active [facility] [address]141 -064- 01 Not Available Not Available Not [...] Updated DateTime 03/16/20[address] [facility] 03/16/2023 09:52:09 Date Recorded Body height Provider Name an d Address Organization Details Last Updated DateTime 04/07/2023 162[address] [facility] 04/07/2023 12:22:07 Date Recorded Body height Provider Name an d Address Organization Details Last Updated DateTime 04/22/2023 162[address] [facility] 04/22/2023 12:04:48 Date Recorded Body height Provider Name an d Address Organization Details Last Updated DateTime 05/11/2023 162[address] [facility] 05/11/2023 09:04:41 Date Recorded Body height Provider Name an d Address Organization Details Last Updated DateTime 06/03/2023 [address] [facility] 06/03/2023 10:23:22 Social History None recorded. Functional Status Question Answer Note LastModified by Organizat ion Details LastModified Time What is your level of alcohol consumption? Occasional [id number] Information not available 01/12/2023 Mental Status None recorded. Family History Relationship Description Onset Age of this Age Resolved Age Notes LastModified by Organization Details LastModified Time Father Heart disease [id number] [id number] Not available 01/12/2023 00:49:06 Father Hypertensive disorder MIGRATION.946 [id number] Not available 01/12/2023 00:49:06 Mother Heart disease MIGRATION.122 [id number] Not available 01/12/2023 00:49:06 Mother Hypertensive disorder MIGRATION.764 [id number] Not available 01/12/2023 00:49:06 Brother Heart disease MIGRATION.630 [id number] Not available 01/12/2023 00:49:06 Medical History Condition Response BLINDNESS N KIDNEY STONES N CARPAL TUNNEL SYNDROME N MRSA N LUNG DISEASE/DISORDER N HISTORY OF DRUG ABUSE N RADIATION / CHEMOTHERAPY N COPD N ANKLE PAIN N SPORTS INJURY N BLOOD DISEASES N SCHIZOPHRENIA N SHINGLES N BOWEL PROBLEMS N DEPRESSION (INCLUDING POST ) N SHOULDER PAIN N STROKE/TIA N ULCERS N KNEE PAIN [...] HAVE YOU BEEN HOSPITALIZED OR SEEN IN [facility] ER IN THE PAST YEAR ? [...] SNOMED-CT Code Diagnosis ICD10 Code Diagnosis Note [id number] Aydin Pritchard MD [facility] [place] [address] [place] [address] 01/12/2021 00:00:00 01/12/2021 14:46:55 [id number] Aydin Pritchard MD [facility] [place] [address] [place] [address] 01/26/2021 00:00:00 01/26/2021 15:38:38 [id number] MD SALO [facility] [place] [address] [place] [address] 04/03/2021 00:00:00 04/03/2021 09:59:55 [id number] MD SALO [facility] [place] [address] [place] [address] 05/01/2021 00:00:00 05/01/2021 09:14:43 [id number] MD SALO [facility] [address] [place] [address] 06/04/2021 00:00:00 06/04/2021 11:10:45 [id number] MD SALO [facility] [place] [address] [place] [address] 06/12/2021 00:00:00 06/13/2021 12:11:52 [id number] MD CHANDU [facility] [place] [address] [place] [address] 07/10/2021 00:00:00 07/10/2021 09:44:19 [id number] Aydin Pritchard MD [facility] [place] [address] [place] [address] 07/24/2021 00:00:00 07/24/2021 12:01:16 [id number] MD SALO [facility] [place] [address] [place] [address] 01/01/2022 00:00:00 01/01/2022 10:41:38 [id number] MD CHANDU [facility] [place] [address] [place] [address] 04/16/2022 00:00:00 04/16/2022 09:57:05 [id number] ROSALIA Owens [facility] [place] [address] [place] [address] 04/30/2022 00:00:00 04/30/2022 09:18:47 [id number] Aydin Pritchard MD [address] [address] 02/03/2023 09:59:49 02/03/2023 11:15:08 Pain of right shoulder joint 3112122480 8078858 M25.511 [id number] Aydin Pritchard MD [facility] [place] [address] [place] [address] 03/16/2023 09:46:32 03/16/2023 10:51:04 Partial thickness rotator cuff tear 089030908 M75.101 [id number] Aydin Pritchard MD [address] [address] 04/07/2023 12:05:17 04/08/2023 09:46:52 Pain of left shoulder joint 7975442619 7350734 M25.512 [id number] Aydin Pritchard MD [facility] [place] [address] [place] [address] 04/22/2023 11:58:33 04/22/2023 13:52:51 Closed fracture of upper end of humerus 66763089 S42.202D Pain of le ft elbow joint 2824593704 0484054 M25.522 Pain of left wrist 91313 46629 22773 M25.532 [id number] Aydin Pritchard MD [facility] [place] [address] [place] [address] 05/11/2023 09:00:00 05/11/2023 10:14:12 Closed fracture of upper end of humerus 09954139 S42.202D Pain of ri ght shoulder joint 1277592512 8216109 M25.511 [id number] Aydin Pritchard MD [facility] [place] [address] [place] [address] 06/03/2023 10:10:44 06/03/2023 11:23:28 Closed fracture of upper end of humerus 20336893 S4 Health Concerns Section Related Observation LastModified by Organization Detai ls LastModified Time None Recorded Concern Status LastModified by Organization Details LastModified Time None Recorded Advance Directives Directive None Recorded Payers Encounter Date Sequence Insurance Name Policy Number Policy Ba Covered Member ID Ba Member ID Guarantor Name 03/16/2023 1 [place] Betzy S Reddo [id number] Betzy S Reddo 03/16/2023 2 [place] [id number] Betzy S Reddo [id number] Betzy S Reddo 04/07/2023 1 [place] Betzy S Reddo [id number] Betzy S Reddo 04/07/2023 2 [place] [id number] Betzy S Reddo [id number] Betzy S Reddo 04/22/2023 1 [place] Betzy S Reddo [id number] Betzy S Reddo 04/22/2023 2 [place] [id number] Betzy S Reddo [id number] Betzy S Reddo 05/11/2023 1 [place] Betzy S Reddo [id number] Betzy S Reddo 05/11/2023 2 [place] [id number] Betzy S Reddo [id number] Betzy S Reddo 06/03/2023 1 [place] Betzy S Reddo [id number] Betzy S Reddo 06/03/2023 2 [place] [id number] Betzy S Reddo [id number] Betzy S Reddo Notes Date Note [...] with supraspinatus insertional disease. Aydin Pritchard MD [address] [place] [address], [place] [address], [place], [address], [place] - [facility] 04/07/2023 19:53:42 OBGyn Episode No OBEpisode recorded.
--- OUTSIDE RECORDS SUMMARY | 2025-04-12 12:40 | XMS_ITS ---
Author Organization [facility] Address [address] [place], [place] [address] Care Team Providers Care Laser Beam Color Scanner Operator Name Role Phone LISA BUTLER Unavailable [phone] Janeth Viramontes Unavailable Unavailable Allergies Allergen (clinical [...] 1000 MG Extended Release Oral Tablet [Ranexa]Original [id number] HR ranolazine 1000 MG Extended Release Oral Tablet [Ranexa] *Reorder from [facility] for eRx and Interaction Alerts* 6 Active calcium carbonate 600 MG / cholecalciferol 125 UNT Oral Tablet ORAL calcium carbonate 600 MG / cholecalciferol 125 UNT Oral TabletOriginal Medicationcalcium carbonate 600 MG / cholecalciferol 125 UNT Oral Tablet *Reorder from [facility] for eRx and Interaction Alerts* 6 Active ciclopirox 80 MG/ML Topical Solution ciclopirox 80 MG/ML Topical SolutionOriginal Medicationciclopirox 80 MG/ML Topical Solution *Reorder from [facility] for eRx and Interaction Alerts* 7 Active amlodipine 10 MG Oral Tablet ORAL amlodipine 10 MG Oral TabletOriginal Medicationamlodipine 10 MG Oral Tablet *Reorder from [facility] for eRx and Interaction Alerts* 0 Active aspirin 81 MG Delayed Release Oral Tablet ORAL aspirin 81 MG Delayed Release Oral TabletOriginal Medicationaspirin 81 MG Delayed Release Oral Tablet *Reorder from [facility] for eRx and Interaction Alerts* 6 Active Lisinopril 10 MG Oral Tablet ORAL lisinopril 10 MG Oral TabletOriginal Medicationlisinopril 10 MG Oral Tablet *Reorder from [facility] for eRx and Interaction Alerts* 0 Active urea 400 MG/ML Topical Cream CUTANEOUS urea 400 MG/ML Topical CreamOriginal Medicationurea 400 MG/ML Topical Cream *Reorder from [facility] for eRx and Interaction Alerts* 3 Active Famotidine 20 MG Oral Tablet ORAL famotidine 20 MG Oral TabletOriginal Medicationfamotidine 20 MG Oral Tablet *Reorder from [facility] for eRx and Interaction Alerts* 0 Active Isosorbide Mononitrate 20 MG Oral Tablet ORAL isosorbide mononitrate 20 MG Oral TabletOriginal Medicationisosorbide mononitrate 20 MG Oral Tablet *Reorder from [facility] for eRx and Interaction Alerts* 0 Active Furosemide 40 MG Oral Tablet ORAL furosemide 40 MG Oral TabletOriginal Medicationfurosemide 40 MG Oral Tablet *Reorder from [facility] for eRx and Interaction Alerts* 0 Active levothyroxine sodium 0.2 MG Oral Tablet ORAL levothyroxine sodium 0.2 MG Oral TabletOriginal Medicationlevothyroxine sodium 0.2 MG Oral Tablet *Reorder from [facility] for eRx and Interaction Alerts* 0 Active Medrol Dosepak ORAL Medrol DosepakOr iginal MedicationMedrol Dosepak *Reorder from [facility] for eRx and Interaction Alerts* 3 Active pantoprazole 40 MG Delayed Release Oral Tablet ORAL pantoprazole 40 MG Delayed Release Oral TabletOriginal Medicationpantoprazole 40 MG Delayed Release Oral Tablet *Reorder from [facility] for eRx and Interaction Alerts* 0 Active clotrimazole 10 MG/ML Topical Solution CUTANEOUS clotrimazole 10 MG/ML Topical SolutionOriginal Medicationclotrimazole 10 MG/ML Topical Solution *Reorder from [facility] for eRx and Interaction Alerts* 4 Active ipratropium bromide 0.042 MG/ACTUAT Metered Dose Nasal [place] ipratropium bromide 0.042 MG/ACTUAT Metered Dose Nasal SprayOriginal Medicationipratropium bromide 0.042 MG/ACTUAT Metered Dose Nasal [place] *Reorder from [facility] for eRx and Interaction Alerts* 0 Active Encounters Encounter Location Date Provider Diagnosis [facility] [address] [place], [place] [id number] 03/18/2025 LISA SNOOK Tinea unguium B35.1 ; Pain in right foot M79.671 ; Pain in left foot M79.672 ; Atherosclerosis of [place] arteries of extremities with intermittent claudication, bilateral [...] foot (ICD-10 - M79.672) 03/18/2025 Atherosclerosis of [place] arteries of extremities with intermittent claudication, bilateral [...] Name:LISA BUTLER, 01:00:00 PM, [address], [address], [id number], Progress Notes * JENNIFERSAVANNA TILLMANARA SDOB:[birth year] (79 yo F)Acc No.[id number]:03/18/2025 Patient: FREDDIE QUARLES Provider: Ramirez Butler DPM :1945 A ge:79 Y S ex:Female Date:03/18/2025 Address:[address] [place] [address] Subjective: * Chief Complaints: * 1 . [...] Medicationfurosemide 40 MG Oral Tablet *Reorder from [facility] for eRx and Interaction Alerts*, Taking Famotidine 20 MG Oral Tablet ORAL , Notes to Pharmacist: famotidine 20 MG Oral TabletOriginal Medicationfamotidine 20 MG Oral Tablet *Reorder from [facility] for eRx and Interaction Alerts*, Taking Isosorbide Mononitrate 20 MG Oral Tablet ORAL , Notes to Pharmacist: isosorbide mononitrate 20 MG Oral TabletOriginal Medicationisosorbide mononitrate 20 MG Oral Tablet *Reorder from [facility] for eRx and Interaction Alerts*, Taking Lisinopril 10 MG Oral Tablet ORAL , Notes to Pharmacist: lisinopril 10 MG Oral TabletOriginal Medicationlisinopril 10 MG Oral Tablet *Reorder from [facility] for eRx and Interaction Alerts*, Taking 12 HR ranolazine 1000 MG Extended Release Oral Tablet [Ranexa] ORAL , Notes to Pharmacist: 12 HR ranolazine 1000 MG Extended Release Oral Tablet [Ranexa]Original [id number] HR ranolazine 1000 MG Extended Release Oral Tablet [Ranexa] *Reorder from [facility] for eRx and Interaction Alerts*, Taking amlodipine 10 MG Oral Tablet ORAL , Notes to Pharmacist: amlodipine 10 MG Oral TabletOriginal Medicationamlodipine 10 MG Oral Tablet *Reorder from [facility] for eRx and Interaction Alerts*, Taking aspirin 81 MG Delayed Release Oral Tablet ORAL , Notes to Pharmacist: aspirin 81 MG Delayed Release Oral TabletOriginal Medicationaspirin 81 MG Delayed Release Oral Tablet *Reorder from [facility] for eRx and Interaction Alerts*, Taking calcium carbonate 600 MG / cholecalciferol 125 UNT Oral Tablet ORAL , Notes to Pharmacist: calcium carbonate 600 MG / cholecalciferol 125 UNT Oral TabletOriginal Medicationcalcium carbonate 600 MG / cholecalciferol 125 UNT Oral Tablet *Reorder from [facility] for eRx and Interaction Alerts*, Taking ciclopirox 80 MG/ML Topical Solution , Notes to Pharmacist: ciclopirox 80 MG/ML Topical SolutionOriginal Medicationciclopirox 80 MG/ML Topical Solution *Reorder from [facility] for eRx and Interaction Alerts*, Taking clotrimazole 10 MG/ML Topical Solution CUTANEOUS , Notes to Pharmacist: clotrimazole 10 MG/ML Topical SolutionOriginal Medicationclotrimazole 10 MG/ML Topical Solution *Reorder from [facility] for eRx and Interaction Alerts*, Taking ipratropium bromide 0.042 MG/ACTUAT Metered Dose Nasal [place] , Notes to Pharmacist: ipratropium bromide 0.042 MG/ACTUAT Metered Dose Nasal SprayOriginal Medicationipratropium bromide 0.042 MG/ACTUAT Metered Dose Nasal [place] *Reorder from [facility] for eRx and Interaction Alerts*, Taking levothyroxine sodium 0.2 MG Oral Tablet ORAL , Notes to Pharmacist: levothyroxine sodium 0.2 MG Oral TabletOriginal Medicationlevothyroxine sodium 0.2 MG Oral Tablet *Reorder from [facility] for eRx and Interaction Alerts*, Taking Medrol Dosepak ORAL , Notes to Pharmacist: Medrol DosepakOriginal MedicationMedrol Dosepak *Reorder from [facility] for eRx and Interaction Alerts*, Taking pantoprazole 40 MG Delayed Release Oral Tablet ORAL , Notes to Pharmacist: pantoprazole 40 MG Delayed Release Oral TabletOriginal Medicationpantoprazole 40 MG Delayed Release Oral Tablet *Reorder from [facility] for eRx and Interaction Alerts*, Taking urea 400 MG/ML Topical Cream CUTANEOUS , Notes to Pharmacist: urea 400 MG/ML Topical CreamOriginal Medicationurea 400 MG/ML Topical Cream *Reorder from [facility] for eRx and Interaction Alerts*, Medication [...] - M79.672 4 . 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 Modifiers: Q8 71333 DEBRIDE NAIL, 6 OR MORE. Modifiers: 59, Q8 * Electronic signature of LISA BUTLER DPM on 04/12/2025 at 12:39 PM CDT Sign off status: Pending * Provider: Ramirez Butler DPM Date: 0 03/18/2025 Generated for Santi torres/Faxing/eTransmitting on: 0 04/12/2025 12:39 PM CDT History and Physical Notes * [...]
[2025-04-12 13:06] LABS: Alanine Aminotransferase 29 U/L (6-35); Albumin Level 4.2 g/dL (3.5-5.1); Alkaline Phosphatase 71 U/L (38-126); Anion Gap 5 mmol/L (4-12); Aspartate Amino Transferase 32 U/L (14-36); Bilirubin,Total 0.5 mg/dL (0.2-1.3); Blood Urea Nitrogen 22 mg/dL (7-17); Calcium 9.6 mg/dL (8.4-10.2); Carbon Dioxide 37 mmol/L (22-30); Chloride 93 mmol/L (98-107); Estimated Glomerular Filt Rate 58; Glucose 121 mg/dL (65-110); Osmolality Calculated 284 mOsm/kg (285-295); Potassium 3.1 mmol/L (3.4-5.0); Sodium 135 mmol/L (137-145); Total Protein 6.9 g/dL (6.3-8.2)
[2025-04-12 13:07] LABS: Lactic Acid Reflex 1.6 mmol/L (0.4-2.0)
== END 2025-04-12 12:36 | disposition home or self-care (01) ==
LOC: CHSLAB 12:36
PROVIDERS: PCP Internal Medicine; Visit Provider Internal Medicine
DX: E86.0 Dehydration (principal); R11.0 Nausea; R10.9 Unspecified abdominal pain
CPT/HCPCS: 36415; 80053; 83605

== ENCOUNTER 2025-04-15 09:11 | Outpatient (CLI) | payer MEDICARE, SELFPAY ==
--- OUTSIDE RECORDS SUMMARY | 2025-04-15 09:28 | XMS_ITS | Patient Health Record ---
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
--- OUTSIDE RECORDS SUMMARY | 2025-04-15 09:28 | XMS_ITS | Referral Summary ---
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 (Primary Dx); [...] by mouth daily Active cholecalciferol (VITAMIN D-3) 94716 unit capsule Take 1 capsule (10,000 Units [...] mg SL tabletIndication s: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 DISSOLVE ONE [...] (04/01/2020): Added automatically from request for surgery [id number] Palpitations 01/09/2020 Chronic fatigue 01/09/2020 Preoperative cardiovascular examination 07/04/20 19 OWENS (dyspnea on exertion) 04/20/2018 Orthostatic hypotension 10/19/2016 Overview (02/18/2017): Orthostatic hypotension 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 (02/18/2017): Coronary vasospasm Thoracic back pain 12/29/2015 Overview (02/18/2017): Thoracic back pain, unspecified back pain laterality Coronary arteriosclerosis in samish artery 11/04 Overview (02/18/2017): Coronary artery disease involving samish coronary artery of samish heart with other form of angina pectoris Left ventricular dilatation 11/04/2015 Overview (02/18/2017): LVE (left ventricular enlargement) Coronary artery disease invo lving samish coronary artery of samish heart with angina pectoris with documented spasm [...] on file Legal Sex Female 3:37 PM COURSEWARE DEVELOPER Gender Identity Female 05/06/2020 3:45 PM CDT Sexual Orientation Straight 01/31/2020 9: 43 AM CDT Last Filed Vital Signs Vital Sign Reading Time Taken Comments Blood Pressure 128/68 02/08/2025 12:51 PM CDT Pulse 76 02/08/2025 12:51 PM CDT Temperature 36.8 C (98.3 F) 04/02/2020 12:00 PM CDT Respiratory Rate 16 11/10/2021 9:02 AM COURSEWARE DEVELOPER Oxygen Saturation 95% 02/08/2025 12: 51 PM CDT Inhaled Oxygen Concentration - - Weight 96.9 kg (213 lb 11.2 oz) 025 12:51 PM CDT Height 167.6 cm (5' 6) 02/08/2025 12:5 1 PM CDT Body Mass Index 34.49 02/08/2025 12:51 PM CDT Plan of Treatment Not on file Medical Devices Explanted Type Area Personnel Clerks Supervisor Device Identifier Shelf Expiration Date Model / Serial / Lot [employer] 6571 Chris Flexi-Stent 7fr 3cm Small Pigtail Flexible .035in Stent - [id number] Implanted:Qty : 1 on 03/31/2020 by Ricky Jeter MD at [facility] Explanted:Qty : 1 on 04/02/2020 by Ricky Jeter MD at [facility] Stent N/A: Pancreas [employer] 09/13/2024 [id number] / / [id number] Conmed Purnima [id number] [place] Viabil 10mm 8.5fr 6cm 200cm Fully Covered Self Expand Pull - [id number] - [id number] Implanted:Qty : 1 on 03/31/2020 by Ricky Jeter MD at [facility] Explanted:Qty : 1 on 04/02/2020 by Ricky Jeter MD at [facility] Stent N/A: Bile Duct Conmed Purnima 12/20/2022 [id number] / [id number] / Insurance MEDICARE [facility]LY [facility] MEDICARE BLUE CROSS MEDICARE SUPPLEMENT Advance Directives For more information, please contact: [phone] * Full Code (Latest Code Status on File) Date Activated Date Inactivated Comments 03/31/2020 8:47 AM 04/02/2020 5:04 PM Care Teams Blowing Engineer Relationship Specialty Start Date End Date Janeth Viramontes MD [address] [id number] PCP - General 09/16/11
--- OUTSIDE RECORDS SUMMARY | 2025-04-15 09:28 | XMS_ITS | Clinical Summary ---
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 DISSOLVE ONE [...] (04/01/2020): Added automatically from request for surgery [id number] Palpitations 01/09/2020 Chronic fatigue 01/09/2020 Preoperative cardiovascular examination 07/04/20 19 OWENS (dyspnea on exertion) 04/20/2018 Orthostatic hypotension 10/19/2016 Overview (02/18/2017): Orthostatic hypotension 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 (02/18/2017): Coronary vasospasm Thoracic back pain 12/29/2015 Overview (02/18/2017): Thoracic back pain, unspecified back pain laterality Coronary arteriosclerosis in pokagon artery 11/04 Overview (02/18/2017): Coronary artery disease involving pokagon coronary artery of pokagon heart with other form of angina pectoris Left ventricular dilatation 11/04/2015 Overview (02/18/2017): LVE (left ventricular enlargement) Coronary artery disease invo lving pokagon coronary artery of pokagon heart with angina pectoris with documented spasm [...] Description 02/08/2025 1:00 PM CDT Office Visit [facility] Cardiology [address] [place] [address] Christine Mendoza NP 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 (Primary Dx); [...] on file Legal Sex Female 3:37 PM 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 Gender Identity Female 05/06/2020 3:45 PM CDT Sexual Orientation Straight 01/31/2020 9: 43 AM CDT Obstetrics History Last Filed Vital Signs Vital Sign Reading Time Taken Comments Blood Pressure 128/68 02/08/2025 12:51 PM CDT Pulse 76 02/08/2025 12:51 PM CDT Temperature 36.8 C (98.3 F) 04/02/2020 12:00 PM CDT Respiratory Rate 16 11/10/2021 9:02 AM 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 Oxygen Saturation 95% 02/08/2025 12: 51 PM [...] history exists Medical Devices Explanted Type Area Butcher Meat Device Identifier Shelf Expiration Date Model / Serial / Lot [employer] 6571 Chris Flexi-Stent 7fr 3cm Small Pigtail Flexible .035in Stent - [id number] Implanted:Qty : 1 on 03/31/2020 by Ricky Jeter MD at [facility] Explanted:Qty : 1 on 04/02/2020 by Ricky Jeter MD at [facility] Stent N/A: Pancreas [employer] 09/13/2024 6571 / / [id number] Conmed Purnima [id number] [place] Viabil 10mm 8.5fr 6cm 200cm Fully Covered Self Expand Pull - [id number] - [id number] Implanted:Qty : 1 on 03/31/2020 by Ricky Jeter MD at [facility] Explanted:Qty : 1 on 04/02/2020 by Ricky Jeter MD at [facility] Stent N/A: Bile Duct Conmed Purnima 12/20/2022 [id number] / [id number] / Insurance MEDICARE MEDICARE [facility] MEDICARE BLUE CROSS MEDICARE SUPPLEMENT Advance Directives For more information, please contact: [phone] * Full Code (Latest Code Status on File) Date Activated Date Inactivated Comments 03/31/2020 8:47 AM 04/02/2020 5:04 PM Care Teams Chief Talent Officer Relationship Specialty Start Date End Date Janeth Viramontes MD [address] [place] [address] [facility] - General 09/16/11
--- OUTSIDE RECORDS SUMMARY | 2025-04-15 09:28 | XMS_ITS | Data Portability ---
Author Organization [place] - [facility], Main Office Address [address] [place] [address] Care Team Providers Care Head Of Digital Advertising & Integration Name Role Phone RUBENS MONTOYA Primary Care [...] more than half the time spent in ougm-gz-lvxg care. Not available 03/16/2023 10:23:27 04/07/2023 04/07/2023 [...] recommended that she take Citracal +D to [place] tablets a day in the time being. [...] than half of this time spent in nczj-zn-vyqc care. Not available 04/07/2023 19:53:25 04/22/2023 04/22/2023 [...] patient more than half of this in qemk-vc-lbxm conversation Not available 04/22/2023 13:40:48 05/11/2023 05/11/2023 [...] patient more than half of this in itgq-hw-kbzf conversation Not available 05/11/2023 10:09:34 06/03/2023 06/03/2023 [...] patient more than half of this in bmwh-ah-vxoc conversation Not available 06/03/2023 11:06:01 Plan of Treatment Reminders Order Date Submit Date Provider Last Modified By Organization Details Last Modified Time Details Appointments None recorded. Lab None recorded. Referral physical therapist referral - see attached order- please schedule pt 2022 023 [email or web address] [facility], [address] [place], [address], 3 14:21:10 Procedures injection/a spiration joint/bursa (PROC) - in office procedure, administere d by provider 2022 023 [email or web address] In-Office Order, Internal Use Only DO Not Attach Compendium DO Not Attach Compendium, Do Not Delete/merge, [address] 09:57:30 Surgeries None recorded. Imaging XR, shoulder 2022 023 [facility] [place], [address], [place], [address], 3 11:30:58 XR, shoulder 2022 023 [facility] [place], [address], [place], [address], 3 13:10:33 XR, elbow 2022 023 [email or web address] [facility] [place], [address], [place], [address], 3 13:52:51 XR, shoulder 2022 023 [facility] [place], [address], [place], [address], 3 12:30:32 XR, wrist 2022 023 [email or web address] [facility] [place], [address], [place], [address], 3 13:52:51 Medication Orders Kenalog 10 mg/mL suspension for injection 2022 023 [facility] [address] [place], [address], 3 13:10:33 ropivacaine (PF) 5 mg/mL (0.5 %) injection solution 2022 023 [facility] [address] [place], [address], 13:10:33 Patient TargetsNo targets recorded. Patient InstructionsNo [...] No observ ation record ed. [facility] [place] [address], [place], [address], 04/22/2023 13:39:16 04/22/20 XR, wrist No observ ation record ed. [facility] [place] [address], [place], [address], 04/22/2023 13:38:39 06/09/20 23 XR, elbow No observ ation record ed. [facility] [place] [address], [address], 04/22/2023 13:38:16 05/11/20 23 XR, shoul janet No observ ation record ed. [facility] [place] [address], [address], 05/11/2023 10:06:48 06/03/20 23 XR, shoul janet No observ ation record ed. [facility] [place] [address], [address], 06/03/2023 11:03:45 Result Notes None recorded. Problems Name Problem SNOMED Code Status Onset Date Resolution Date Notes Provider Name and Address Organization Details Recorded Time History of total knee arthroplas ty 9888851124421 Active 2021 Not Available [facility] 3 00:55:20 Pain of left shoulder joint 0512717482182 9109 Active 2021 Not Available [facility] 3 00:55:20 Stable angina 170573333 Active 2018 Not Available [facility] 3 00:55:20 Enthesopat hy of hip region 97391136 Active Not Available [facility] 3 00:55:20 Osteoarthr itis of left knee joint 8269833875372 09 Active 2018 Not Available [facility] 3 00:55:20 Osteoarthr itis 955018992 Active Not Available [facility] 3 00:55:20 Pain of left hip joint 4304650395370 00 Active 2022 FR[facility]ER[place], [facility] [employer] [facility] 3 10:18:52 Pain of right shoulder joint 7600168716958 9100 Active 2022 FR[place]ER[place], [place] [facility] 3 10:19:32 Partial thickness rotator cuff tear 977213316 Active 2022 Karlie Randall RMA null, [facility] 3 09:54:19 Vitamin D deficiency 83678291 Active 2022 Nava Jose, PAYROLL CLERK null, [facility] 3 13:32:39 Closed fracture of upper end of humerus 99812475 Active 2022 Karlie Randall RMA null, [facility] 3 12:06:45 Pain of left elbow joint 7188677446235 9104 Active 2022 Karlie Randall RMA null, [facility] 3 12:07:11 Pain of left wrist 8222174636364 02 Active 2022 Karlie Randall RMA [place], [facility] 3 12:53:17 Problem Notes None recorded. Medical Equipment None Reported. Allergies Allergen ID Allergen Name Allergen Category Reaction Reaction Severity Criticality Documentation Date Start Date Code Code System Note Provider Name and Address Organization Details Recorded Time 1368 latex environme nt,medica tion rash Not available Not available 01/12/2023 50196 91 RxNorm BLIST ERS Not Available [facility] 3 01:02:40 1369 bacitraci n medicatio n Not available Not available Not available 01/12/20232018 1291 RxNorm cause d infec teed 2nd degre e no rash or sob Not Available [facility] 3 01:02:40 Medications Name Sig [...] suspension for injection in office 2022 active [facility]: 0003- 0494- 20 Not Available Not Available [...] administe red by the provider 06/12 completed [facility]: 0409- 4276- 17 Not Available Not Available [...] %) injection solution in office 2022 active [facility] 95494 -064- 01 Not Available Not Available Not [...] Updated DateTime 03/16/2023 162.56 cm Karlie Randall [facility] [employer] [facility] 03/16/2023 09:52:09 Date Recorded Body height Provider Name an d Address Organization Details Last Updated DateTime 04/07/2023 162.56 cm Karlie Randall [facility] [employer] [facility] 04/07/2023 12:22:07 Date Recorded Body height Provider Name an d Address Organization Details Last Updated DateTime 04/22/2023 162.56 cm Karlie Randall [facility] [employer] [facility] 04/22/2023 12:04:48 Date Recorded Body height Provider Name an d Address Organization Details Last Updated DateTime 05/11/2023 162.56 cm Karlie Randall [facility] [employer] [facility] 05/11/2023 09:04:41 Date Recorded Body height Provider Name an d Address Organization Details Last Updated DateTime 06/03/2023 162.56 cm Karlie Randall [facility] [employer] [facility] 06/03/2023 10:23:22 Social History None recorded. Functional Status Question Answer Note LastModified by Organizat ion Details LastModified Time What is your level of alcohol consumption? Occasional [id number] Information not available 01/12/2023 Mental Status None recorded. Family History Relationship Description Onset Age of this Age Resolved Age Notes LastModified by Organization Details LastModified Time Father Heart disease [id number] Not available 01/12/2023 00:49:06 Father Hypertensive disorder [id number] Not available 01/12/2023 00:49:06 Mother Heart disease [id number].882 [id number] Not available 01/12/2023 00:49:06 Mother Hypertensive disorder [id number].496 [id number] Not available 01/12/2023 00:49:06 Brother Heart disease MIGRATION.944 [id number] Not available 01/12/2023 00:49:06 Medical History Condition [...] HAVE YOU BEEN HOSPITALIZED OR SEEN IN [facility] IN THE PAST YEAR ? N [...] SNOMED-CT Code Diagnosis ICD10 Code Diagnosis Note [id number] Aydin Pritchard MD [facility] [place] [address] [place] [address] 01/12/2021 00:00:00 01/12/2021 14:46:55 [id number] Aydin Pritchard MD [facility] [place] [address] [place] [address] 01/26/2021 00:00:00 01/26/2021 15:38:38 [id number] MD SALO [facility] [place] [address] [place] [address] 04/03/2021 00:00:00 04/03/2021 09:59:55 [id number] MD SALO [facility] [place] [address] [place] [address] 05/01/2021 00:00:00 05/01/2021 09:14:43 [id number] MD SLAO [facility] [address] [place] [address] 06/04/2021 00:00:00 06/04/2021 11:10:45 [id number] MD SALO [facility] [place] [address] [place] [address] 06/12/2021 00:00:00 06/13/2021 12:11:52 [id number] MD CHANDU [facility] [place] [address] [place] [address] 07/10/2021 00:00:00 07/10/2021 09:44:19 [id number] Aydin Pritchard MD [facility] [place] [address] [place] [address] 07/24/2021 00:00:00 07/24/2021 12:01:16 [id number] MD SALO [facility] [place] [address] [place] [address] 01/01/2022 00:00:00 01/01/2022 10:41:38 [id number] MD CHANDU [facility] [place] [address] [place] [address] 04/16/2022 00:00:00 04/16/2022 09:57:05 [id number] ROSALIA Owens [facility] [place] [address] [place] [address] 04/30/2022 00:00:00 04/30/2022 09:18:47 [id number] Aydin Pritchard MD [address] [address] 02/03/2023 09:59:49 02/03/2023 11:15:08 Pain of right shoulder joint 1100075466 5381869 M25.511 [id number] Aydin Pritchard MD [facility] [place] [address] [place] [address] 03/16/2023 09:46:32 03/16/2023 10:51:04 Partial thickness rotator cuff tear 360584892 M75.101 [id number] Aydin Pritchard MD [address] [address] 04/07/2023 12:05:17 04/08/2023 09:46:52 Pain of left shoulder joint 6771190054 3449783 M25.512 [id number] Aydin Pritchard MD [facility] [place] [address] [place] [address] 04/22/2023 11:58:33 04/22/2023 13:52:51 Closed fracture of upper end of humerus 87055948 S42.202D Pain of le ft elbow joint 0785595806 5080265 M25.522 Pain of left wrist 34773 08475 51788 M25.532 [id number] Aydin Pritchard MD [facility] [place] [address] [place] [address] 05/11/2023 09:00:00 05/11/2023 10:14:12 Closed fracture of upper end of humerus 05545843 S42.202D Pain of ri ght shoulder joint 6593023217 9540353 M25.511 [id number] Aydin Pritchard MD [facility] [place] [address] [facility] [address] [place] [address] 06/03/2023 10:10:44 06/03/2023 11:23:28 Closed fracture of upper end of humerus 21305851 S4 Health Concerns Section Related Observation LastModified by Organization Detai ls LastModified Time None Recorded Concern Status LastModified by Organization Details LastModified Time None Recorded Advance Directives Directive None Recorded Payers Encounter Date Sequence Insurance Name Policy Number Policy Ba Covered Member ID Ba Member ID Guarantor Name 03/16/2023 1 [place] Betzy S Reddo [id number] Betzy S Reddo 03/16/2023 2 [place] [id number] Betzy S Reddo [id number] Betzy S Reddo 04/07/2023 1 [place] Betzy S Reddo [id number] Betzy S Reddo 04/07/2023 2 [place] [id number] Betzy S Reddo [id number] Betzy S Reddo 04/22/2023 1 [place] Betzy S Reddo [id number] Betzy S Reddo 04/22/2023 2 [place] [id number] Betzy S Reddo [id number] Betzy S Reddo 05/11/2023 1 [place] Betzy S Reddo [id number] Betzy S Reddo 05/11/2023 2 [place] [id number] Betzy S Reddo [id number] Betzy S Reddo 06/03/2023 1 [place] Betzy S Reddo [id number] Betzy S Reddo 06/03/2023 2 [place] [id number] Betzy S Reddo [id number] Betzy S Reddo Notes Date Note [...] supraspinatus insertional disease. Aydin Pritchard MD [address] [place] [address], [place] [address], [place], [address], [place] [facility] 04/07/2023 19:53:42 OBGyn Episode No OBEpisode recorded.
--- OUTSIDE RECORDS SUMMARY | 2025-04-15 09:28 | XMS_ITS | Patient Health Record ---
Author Organization [facility] Address [address] [place], [place] [id number] Care Team Providers Care Delivery Supervisor Name Role Phone LISA BUTLER Unavailable [phone] Janeth Viramontes Unavailable Unavailable Allergies Allergen (clinical [...] sodium 0.2 MG Oral Tablet *Reorder from [facility] for eRx and Interaction Alerts* 0 Active Lisinopril 10 MG Oral Tablet ORAL lisinopril 10 MG Oral TabletOriginal Medicationlisinopril 10 MG Oral Tablet *Reorder from [facility] for eRx and Interaction Alerts* 0 Active urea 400 MG/ML Topical Cream CUTANEOUS urea 400 MG/ML Topical CreamOriginal Medicationurea 400 MG/ML Topical Cream *Reorder from [facility] for eRx and Interaction Alerts* 3 Active 12 HR ranolazine 1000 MG Extended Release Oral Tablet [Ranexa] ORAL 12 HR ranolazine 1000 MG Extended Release Oral Tablet [Ranexa]Original Mmptrkpang50 HR ranolazine 1000 MG Extended Release Oral Tablet [Ranexa] *Reorder from [facility] for eRx and Interaction Alerts* 6 Active Famotidine 20 MG Oral Tablet ORAL famotidine 20 MG Oral TabletOriginal Medicationfamotidine 20 MG Oral Tablet *Reorder from [facility] for eRx and Interaction Alerts* 0 Active Medrol Dosepak ORAL Medrol DosepakOr iginal MedicationMedrol Dosepak *Reorder from [facility] for eRx and Interaction Alerts* 3 Active Isosorbide Mononitrate 20 MG Oral Tablet ORAL isosorbide mononitrate 20 MG Oral TabletOriginal Medicationisosorbide mononitrate 20 MG Oral Tablet *Reorder from [facility] for eRx and Interaction Alerts* 0 Active pantoprazole 40 MG Delayed Release Oral Tablet ORAL pantoprazole 40 MG Delayed Release Oral TabletOriginal Medicationpantoprazole 40 MG Delayed Release Oral Tablet *Reorder from [facility] for eRx and Interaction Alerts* 0 Active calcium carbonate 600 MG / cholecalciferol 125 UNT Oral Tablet ORAL calcium carbonate 600 MG / cholecalciferol 125 UNT Oral TabletOriginal Medicationcalcium carbonate 600 MG / cholecalciferol 125 UNT Oral Tablet *Reorder from [facility] for eRx and Interaction Alerts* 6 Active ciclopirox 80 MG/ML Topical Solution ciclopirox 80 MG/ML Topical SolutionOriginal Medicationciclopirox 80 MG/ML Topical Solution *Reorder from [facility] for eRx and Interaction Alerts* 7 Active amlodipine 10 MG Oral Tablet ORAL amlodipine 10 MG Oral TabletOriginal Medicationamlodipine 10 MG Oral Tablet *Reorder from [facility] for eRx and Interaction Alerts* 0 Active aspirin 81 MG Delayed Release Oral Tablet ORAL aspirin 81 MG Delayed Release Oral TabletOriginal Medicationaspirin 81 MG Delayed Release Oral Tablet *Reorder from [facility] for eRx and Interaction Alerts* 6 Active Furosemide 40 MG Oral Tablet ORAL furosemide 40 MG Oral TabletOriginal Medicationfurosemide 40 MG Oral Tablet *Reorder from [facility] for eRx and Interaction Alerts* 0 Active clotrimazole 10 MG/ML Topical Solution CUTANEOUS clotrimazole 10 MG/ML Topical SolutionOriginal Medicationclotrimazole 10 MG/ML Topical Solution *Reorder from [facility] for eRx and Interaction Alerts* 4 Active ipratropium bromide 0.042 MG/ACTUAT Metered Dose Nasal [place] ipratropium bromide 0.042 MG/ACTUAT Metered Dose Nasal SprayOriginal Medicationipratropium bromide 0.042 MG/ACTUAT Metered Dose Nasal [place] *Reorder from [facility] for eRx and Interaction Alerts* 0 Active Immunizations Vaccine Route Administration Date Status Comme nts Influenza, high dose seasonal Unknown 09/09/2023 Admini stered Encounters Encounter Location Date Provider Diagnosis [facility] [place] [address] [place] [id number] 03/18/2025 LISA SNOOK Tinea unguium B35.1 ; Pain in right foot M79.671 ; Pain in left foot M79.672 ; Atherosclerosis of [place] arteries of extremities with intermittent claudication, bilateral legs I70.213 and Acquired keratosis [keratoderma] palmaris et plantaris L85.1 [facility] [place] [address] [place] [address] [id number] 06/25/2024 LISA SNOOK Tinea unguium B35.1 ; Pain in right foot M79.671 ; Pain in left foot M79.672 ; Atherosclerosis of [place] arteries of extremities with intermittent claudication, bilateral legs I70.213 and Acquired keratosis [keratoderma] palmaris et plantaris L85.1 [facility] [place] [address] [place] [address] [id number] 09/17/2024 LISA SNOOK Tinea unguium B35.1 ; Pain in right toe(s) M79.674 ; Pain in left toe(s) M79.675 and Atherosclerosis of [place] arteries of extremities with intermittent claudication, bilateral legs I70.213 [facility] [place] [address] [place] [address] [id number] 12/17/2024 LISA SNOOK Tinea unguium B35.1 ; Pain in right foot M79.671 ; Pain in left foot M79.672 ; Atherosclerosis of [place] arteries of extremities with intermittent claudication, bilateral [...] foot (ICD-10 - M79.672) 06/25/2024 Atherosclerosis of [place] arteries of extremities with intermittent claudication, bilateral legs (ICD-10 - I70.213) 09/17/2024 Atherosclerosis of [place] arteries of extremities with intermittent claudication, bilateral legs (ICD-10 - I70.213) 12/17/2024 Atherosclerosis of [place] arteries of extremities with intermittent claudication, bilateral legs (ICD-10 - I70.213) 03/18/2025 Atherosclerosis of [place] arteries of extremities with intermittent claudication, bilateral [...] Appt Details Provider Name:LISA BUTLER, 01:00:00 PM, [address], [facility], [place], [place], [phone], Insurance Providers Payer Name Payer Address Payer Phone Subscriber Number Group Number Insured Name Patient Relationship to Insured Coverage Start Date Coverage End Date Medicare Part B [place] [address] [place] [address] [id number] FREDDIE MARTÍNEZ Self - patient is the insured [facility] ([facility]) ATTN CLAIMS [address] [place] [address] [id number] FREDDIE MARTÍNEZ Self - patient is the insured
--- OUTSIDE RECORDS SUMMARY | 2025-04-15 09:29 | XMS_ITS ---
Author Organization [facility] Address [address] [place], [place] [id number] Care Team Providers Care Design Center Consultant Name Role Phone LISA BUTLER Unavailable [phone] Janeth Viramontes Unavailable Unavailable Allergies Allergen (clinical [...] 1000 MG Extended Release Oral Tablet [Ranexa]Original Ocefkfbifx57 HR ranolazine 1000 MG Extended Release Oral Tablet [Ranexa] *Reorder from [facility] for eRx and Interaction Alerts* 6 Active calcium carbonate 600 MG / cholecalciferol 125 UNT Oral Tablet ORAL calcium carbonate 600 MG / cholecalciferol 125 UNT Oral TabletOriginal Medicationcalcium carbonate 600 MG / cholecalciferol 125 UNT Oral Tablet *Reorder from [facility] for eRx and Interaction Alerts* 6 Active ciclopirox 80 MG/ML Topical Solution ciclopirox 80 MG/ML Topical SolutionOriginal Medicationciclopirox 80 MG/ML Topical Solution *Reorder from [facility] for eRx and Interaction Alerts* 7 Active amlodipine 10 MG Oral Tablet ORAL amlodipine 10 MG Oral TabletOriginal Medicationamlodipine 10 MG Oral Tablet *Reorder from [facility] for eRx and Interaction Alerts* 0 Active aspirin 81 MG Delayed Release Oral Tablet ORAL aspirin 81 MG Delayed Release Oral TabletOriginal Medicationaspirin 81 MG Delayed Release Oral Tablet *Reorder from [facility] for eRx and Interaction Alerts* 6 Active Lisinopril 10 MG Oral Tablet ORAL lisinopril 10 MG Oral TabletOriginal Medicationlisinopril 10 MG Oral Tablet *Reorder from [facility] for eRx and Interaction Alerts* 0 Active urea 400 MG/ML Topical Cream CUTANEOUS urea 400 MG/ML Topical CreamOriginal Medicationurea 400 MG/ML Topical Cream *Reorder from [facility] for eRx and Interaction Alerts* 3 Active Famotidine 20 MG Oral Tablet ORAL famotidine 20 MG Oral TabletOriginal Medicationfamotidine 20 MG Oral Tablet *Reorder from [facility] for eRx and Interaction Alerts* 0 Active Isosorbide Mononitrate 20 MG Oral Tablet ORAL isosorbide mononitrate 20 MG Oral TabletOriginal Medicationisosorbide mononitrate 20 MG Oral Tablet *Reorder from [facility] for eRx and Interaction Alerts* 0 Active Furosemide 40 MG Oral Tablet ORAL furosemide 40 MG Oral TabletOriginal Medicationfurosemide 40 MG Oral Tablet *Reorder from [facility] for eRx and Interaction Alerts* 0 Active levothyroxine sodium 0.2 MG Oral Tablet ORAL levothyroxine sodium 0.2 MG Oral TabletOriginal Medicationlevothyroxine sodium 0.2 MG Oral Tablet *Reorder from [facility] for eRx and Interaction Alerts* 0 Active Medrol Dosepak ORAL Medrol DosepakOr iginal MedicationMedrol Dosepak *Reorder from [facility] for eRx and Interaction Alerts* 3 Active pantoprazole 40 MG Delayed Release Oral Tablet ORAL pantoprazole 40 MG Delayed Release Oral TabletOriginal Medicationpantoprazole 40 MG Delayed Release Oral Tablet *Reorder from [facility] for eRx and Interaction Alerts* 0 Active clotrimazole 10 MG/ML Topical Solution CUTANEOUS clotrimazole 10 MG/ML Topical SolutionOriginal Medicationclotrimazole 10 MG/ML Topical Solution *Reorder from [facility] for eRx and Interaction Alerts* 4 Active ipratropium bromide 0.042 MG/ACTUAT Metered Dose Nasal [place] ipratropium bromide 0.042 MG/ACTUAT Metered Dose Nasal SprayOriginal Medicationipratropium bromide 0.042 MG/ACTUAT Metered Dose Nasal [place] *Reorder from [facility] for eRx and Interaction Alerts* 0 Active Encounters Encounter Location Date Provider Diagnosis [facility] [address] [place], [place] [id number] 03/18/2025 LISA SNOOK Tinea unguium B35.1 ; Pain in right foot M79.671 ; Pain in left foot M79.672 ; Atherosclerosis of [place] arteries of extremities with intermittent claudication, bilateral [...] foot (ICD-10 - M79.672) 03/18/2025 Atherosclerosis of [place] arteries of extremities with intermittent claudication, bilateral [...] Name:LISA BUTLER, 01:00:00 PM, [address], [address], [id number], Progress Notes * JENNIFERSAVANNA TILLMANARA SDOB:[birth year] (79 yo F)Acc No.[id number]:03/18/2025 Patient: FREDDIE QUARLES Provider: Ramirez Butler DPM :1945 A ge:79 Y S ex:Female Date:03/18/2025 Address:[address] [place] [address] Subjective: * Chief Complaints: * 1 . [...] Medicationfurosemide 40 MG Oral Tablet *Reorder from [facility] for eRx and Interaction Alerts*, Taking Famotidine 20 MG Oral Tablet ORAL , Notes to Pharmacist: famotidine 20 MG Oral TabletOriginal Medicationfamotidine 20 MG Oral Tablet *Reorder from [facility] for eRx and Interaction Alerts*, Taking Isosorbide Mononitrate 20 MG Oral Tablet ORAL , Notes to Pharmacist: isosorbide mononitrate 20 MG Oral TabletOriginal Medicationisosorbide mononitrate 20 MG Oral Tablet *Reorder from [facility] for eRx and Interaction Alerts*, Taking Lisinopril 10 MG Oral Tablet ORAL , Notes to Pharmacist: lisinopril 10 MG Oral TabletOriginal Medicationlisinopril 10 MG Oral Tablet *Reorder from [facility] for eRx and Interaction Alerts*, Taking 12 HR ranolazine 1000 MG Extended Release Oral Tablet [Ranexa] ORAL , Notes to Pharmacist: 12 HR ranolazine 1000 MG Extended Release Oral Tablet [Ranexa]Original Vzdxcojjhy68 HR ranolazine 1000 MG Extended Release Oral Tablet [Ranexa] *Reorder from [facility] for eRx and Interaction Alerts*, Taking amlodipine 10 MG Oral Tablet ORAL , Notes to Pharmacist: amlodipine 10 MG Oral TabletOriginal Medicationamlodipine 10 MG Oral Tablet *Reorder from [facility] for eRx and Interaction Alerts*, Taking aspirin 81 MG Delayed Release Oral Tablet ORAL , Notes to Pharmacist: aspirin 81 MG Delayed Release Oral TabletOriginal Medicationaspirin 81 MG Delayed Release Oral Tablet *Reorder from [facility] for eRx and Interaction Alerts*, Taking calcium carbonate 600 MG / cholecalciferol 125 UNT Oral Tablet ORAL , Notes to Pharmacist: calcium carbonate 600 MG / cholecalciferol 125 UNT Oral TabletOriginal Medicationcalcium carbonate 600 MG / cholecalciferol 125 UNT Oral Tablet *Reorder from [facility] for eRx and Interaction Alerts*, Taking ciclopirox 80 MG/ML Topical Solution , Notes to Pharmacist: ciclopirox 80 MG/ML Topical SolutionOriginal Medicationciclopirox 80 MG/ML Topical Solution *Reorder from [facility] for eRx and Interaction Alerts*, Taking clotrimazole 10 MG/ML Topical Solution CUTANEOUS , Notes to Pharmacist: clotrimazole 10 MG/ML Topical SolutionOriginal Medicationclotrimazole 10 MG/ML Topical Solution *Reorder from [facility] for eRx and Interaction Alerts*, Taking ipratropium bromide 0.042 MG/ACTUAT Metered Dose Nasal [place] , Notes to Pharmacist: ipratropium bromide 0.042 MG/ACTUAT Metered Dose Nasal SprayOriginal Medicationipratropium bromide 0.042 MG/ACTUAT Metered Dose Nasal [place] *Reorder from [facility] for eRx and Interaction Alerts*, Taking levothyroxine sodium 0.2 MG Oral Tablet ORAL , Notes to Pharmacist: levothyroxine sodium 0.2 MG Oral TabletOriginal Medicationlevothyroxine sodium 0.2 MG Oral Tablet *Reorder from [facility] for eRx and Interaction Alerts*, Taking Medrol Dosepak ORAL , Notes to Pharmacist: Medrol DosepakOriginal MedicationMedrol Dosepak *Reorder from [facility] for eRx and Interaction Alerts*, Taking pantoprazole 40 MG Delayed Release Oral Tablet ORAL , Notes to Pharmacist: pantoprazole 40 MG Delayed Release Oral TabletOriginal Medicationpantoprazole 40 MG Delayed Release Oral Tablet *Reorder from [facility] for eRx and Interaction Alerts*, Taking urea 400 MG/ML Topical Cream CUTANEOUS , Notes to Pharmacist: urea 400 MG/ML Topical CreamOriginal Medicationurea 400 MG/ML Topical Cream *Reorder from [facility] for eRx and Interaction Alerts*, Medication [...] - M79.672 4 . A therosclerosis of [place] arteries of extremities with intermittent claudication, bilateral [...] 1055 TRIM SKIN LESION, Modifiers: Q8 , 37163 DEBRIDE NAIL, 6 OR MORE, Modifiers: 59 , Q8 * Follow Up: 1 0 - 12 weeks (Reason: At-Risk Foot care, sooner if problems develop.) * Billing Information: * Visit Code: * Procedure Codes: 89104 TRIM SKIN LESION. Modifiers: Q8 95853 DEBRIDE NAIL, 6 OR MORE. Modifiers: 59, Q8 * Electronic signature of LISA BUTLER DPM on 04/15/2025 at 09:28 AM CDT Sign off status: Pending * Provider: Ramirez Butler DPM Date: 0 03/18/2025 Generated for Santi torres/[place]/eTransmitting on: 0 04/15/2025 09:28 AM CDT History and Physical Notes * [...]
[2025-04-15 10:05] LABS: Anion Gap 5 mmol/L (4-12); Blood Urea Nitrogen 21 mg/dL (7-17); Carbon Dioxide 34 mmol/L (22-30); Chloride 93 mmol/L (98-107); Estimated Glomerular Filt Rate > 60; Glucose 93 mg/dL (65-110); Osmolality Calculated 277 mOsm/kg (285-295); Potassium 3.4 mmol/L (3.4-5.0); Sodium 132 mmol/L (137-145)
== END 2025-04-15 09:12 | disposition home or self-care (01) ==
LOC: CHSLAB 09:13
PROVIDERS: PCP Internal Medicine; Visit Provider Internal Medicine
DX: I10 Essential (primary) hypertension (principal)
CPT/HCPCS: 36415; 80048

== ENCOUNTER 2025-04-22 09:03 | Outpatient (CLI) | payer MEDICARE, SELFPAY ==
--- OUTSIDE RECORDS SUMMARY | 2025-04-22 09:40 | XMS_ITS | Clinical Summary ---
Author Organization [facility] [address] [facility] [address] Address [address] [facility] [address] [place] [address] Care Team Providers Care Application Infrastructure Engineer Name Role Phone Janeth Viramontes MD [...] by mouth daily Active cholecalciferol (VITAMIN D-3) 40770 unit capsule Take 1 capsule (10,000 Units [...] mg SL tabletIndication s:Coronary artery disease of [place] artery of [place] heart with stable angina pectoris DISSOLVE ONE [...] (04/01/2020): Added automatically from request for surgery [id number] Palpitations 01/09/2020 Chronic fatigue 01/09/2020 Preoperative cardiovascular examination 07/04/20 19 OWENS (dyspnea on exertion) 04/20/2018 Orthostatic hypotension 10/19/2016 Overview (02/18/2017): Orthostatic hypotension 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 (02/18/2017): Coronary vasospasm Thoracic back pain 12/29/2015 Overview (02/18/2017): Thoracic back pain, unspecified back pain laterality Coronary arteriosclerosis in [place] artery 11/04 Overview (02/18/2017): Coronary artery disease involving [place] coronary artery of [place] heart with other form of angina pectoris Left ventricular dilatation 11/04/2015 Overview (02/18/2017): LVE (left ventricular enlargement) Coronary artery disease invo lving [place] coronary artery of [place] heart with angina pectoris with documented spasm [...] Cardiology [address] [place] [address] Christine Mendoza NP Coronary artery disease of [place] artery of [place] heart with stable angina pectoris (Primary Dx); [...] on file Legal Sex Female 3:37 PM BRIM STRETCHER Gender Identity Female 05/06/2020 3:45 PM CDT Sexual Orientation Straight 01/31/2020 9: 43 AM CDT Obstetrics History Last Filed Vital Signs Vital Sign Reading Time Taken Comments Blood Pressure 128/68 02/08/2025 12:51 PM CDT Pulse 76 02/08/2025 12:51 PM CDT Temperature 36.8 C (98.3 F) 04/02/2020 12:00 PM CDT Respiratory Rate 16 11/10/2021 9:02 AM BRIM STRETCHER Oxygen Saturation 95% 02/08/2025 12: 51 PM [...] history exists Medical Devices Explanted Type Area Field Merchandiser Device Identifier Shelf Expiration Date Model / Serial / Lot [employer] 6571 Chris Flexi-Stent 7fr 3cm Small Pigtail Flexible .035in Stent - [id number] Implanted:Qty : 1 on 03/31/2020 by Ricky Jeter MD at [facility] Explanted:Qty : 1 on 04/02/2020 by Ricky Jeter MD at [facility] Stent N/A: Pancreas [employer] 09/13/2024 [id number] / / [id number] Conmed Purnima [id number] [place]ard Viabil 10mm 8.5fr 6cm 200cm Fully Covered Self Expand Pull - [id number] - [id number] Implanted:Qty : 1 on 03/31/2020 by Ricky Jeter MD at [facility] Explanted:Qty : 1 on 04/02/2020 by Ricky Jeter MD at [facility] Stent N/A: Bile Duct Conmed Purnima 12/20/2022 [id number] / [id number] / Insurance MEDICARE MEDICARE [facility] MEDICARE BLUE CROSS MEDICARE SUPPLEMENT Advance Directives For more information, please contact: [phone] * Full Code (Latest Code Status on File) Date Activated Date Inactivated Comments 03/31/2020 8:47 AM 04/02/2020 5:04 PM Care Teams Application Infrastructure Engineer Relationship Specialty Start Date End Date Janeth Viramontes MD [address] [place] [address] [facility] - General 09/16/11
--- OUTSIDE RECORDS SUMMARY | 2025-04-22 09:40 | XMS_ITS | Patient Health Record ---
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 Plan Of Treatment Pending Test Test Name Order Date Endoscopic Retrograde Cholangiopancreato graphy (ERCP) 01/21/2020 Endoscopic Retrograde Cholangiopancreato graphy (ERCP) 02/13/2020 Insurance Providers Payer Name Payer Address Payer Phone Subscriber Number Group Number Insured Name Patient Relationship to Insured Coverage Start Date Coverage End Date Medicare-M O Medicare [address] [address] [place], [place] [id number] Betzy Juarez Self - patient is the insured [facility] [address] [place], [place] [id number] Betzy Juarez Self - patient is [...]
--- OUTSIDE RECORDS SUMMARY | 2025-04-22 09:40 | XMS_ITS | Referral Summary ---
Author Organization [facility] [address] [place] [address] Address [address] [facility] [address] [place] [address] Care Team Providers Care Torpedoman'S Mate Name Role Phone Janeth Viramontes MD Primary Care Provider [phone] Encounters Date Type Department Care Team Description 02/08/2025 1:00 PM CDT Office Visit [facility] Cardiology [address] [facility] [address] [place] [address] Christine Mendoza NP Coronary artery disease of [place] artery of [place] heart with stable angina pectoris (Primary Dx); [...] by mouth daily Active cholecalciferol (VITAMIN D-3) 53283 unit capsule Take 1 capsule (10,000 Units [...] mg SL tabletIndication s:Coronary artery disease of [place] artery of [place] heart with stable angina pectoris DISSOLVE ONE [...] (04/01/2020): Added automatically from request for surgery [id number] Palpitations 01/09/2020 Chronic fatigue 01/09/2020 Preoperative cardiovascular examination 07/04/20 19 OWENS (dyspnea on exertion) 04/20/2018 Orthostatic hypotension 10/19/2016 Overview (02/18/2017): Orthostatic hypotension 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 (02/18/2017): Coronary vasospasm Thoracic back pain 12/29/2015 Overview (02/18/2017): Thoracic back pain, unspecified back pain laterality Coronary arteriosclerosis in [place] artery 11/04 Overview (02/18/2017): Coronary artery disease involving [place] coronary artery of [place] heart with other form of angina pectoris Left ventricular dilatation 11/04/2015 Overview (02/18/2017): LVE (left ventricular enlargement) Coronary artery disease invo lving [place] coronary artery of [place] heart with angina pectoris with documented spasm [...] on file Legal Sex Female 3:37 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 Gender Identity Female 05/06/2020 3:45 PM CDT Sexual Orientation Straight 01/31/2020 9: 43 AM CDT Last Filed Vital Signs Vital Sign Reading Time Taken Comments Blood Pressure 128/68 02/08/2025 12:51 PM CDT Pulse 76 02/08/2025 12:51 PM CDT Temperature 36.8 C (98.3 F) 04/02/2020 12:00 PM CDT Respiratory Rate 16 11/10/2021 9:02 AM OINTMENT MILL TENDER Oxygen Saturation 95% 02/08/2025 12: 51 PM CDT Inhaled Oxygen Concentration - - Weight 96.9 kg (213 lb 11.2 oz) 025 12:51 PM CDT Height 167.6 cm (5' 6) 02/08/2025 12:5 1 PM CDT Body Mass Index 34.49 02/08/2025 12:51 PM CDT Plan of Treatment Not on file Medical Devices Explanted Type Area Adjunct Teacher Device Identifier Shelf Expiration Date Model / Serial / Lot [employer] 6571 Chris Flexi-Stent 7fr 3cm Small Pigtail Flexible .035in Stent - [id number] Implanted:Qty : 1 on 03/31/2020 by Ricky Jeter MD at [facility] Explanted:Qty : 1 on 04/02/2020 by Ricky Jeter MD at [facility] Stent N/A: Pancreas [employer] 09/13/2024 [id number] / / [id number] Conmed Purnima [id number] [place] Viabil 10mm 8.5fr 6cm 200cm Fully Covered Self Expand Pull - [id number] - [id number] Implanted:Qty : 1 on 03/31/2020 by Ricky Jeter MD at [facility] Explanted:Qty : 1 on 04/02/2020 by Ricky Jeter MD at [facility] Stent N/A: Bile Duct Conmed Purnima 12/20/2022 [id number] / [id number] / Insurance MEDICARE [facility] MEDICARE BLUE CROSS MEDICARE SUPPLEMENT Advance Directives For more information, please contact: [phone] * Full Code (Latest Code Status on File) Date Activated Date Inactivated Comments 03/31/2020 8:47 AM 04/02/2020 5:04 PM Care Teams Torpedoman'S Mate Relationship Specialty Start Date End Date Janeth Viramontes MD [address] [id number] PCP - General 09/16/11
--- OUTSIDE RECORDS SUMMARY | 2025-04-22 09:40 | XMS_ITS | Data Portability ---
Author Organization [place] - [facility], Main Office Address [address] [place] [address] Care Team Providers Care Card Brusher Name Role Phone RUBENS MONTOYA Primary Care [...] more than half the time spent in fdhx-np-jbqw care. Not available 03/16/2023 10:23:27 04/07/2023 04/07/2023 [...] recommended that she take Citracal +D to [place] tablets a day in the time being. [...] than half of this time spent in npxi-ce-syyx care. Not available 04/07/2023 19:53:25 04/22/2023 04/22/2023 [...] patient more than half of this in kqlc-pr-csoi conversation Not available 04/22/2023 13:40:48 05/11/2023 05/11/2023 [...] patient more than half of this in osio-sw-lnut conversation Not available 05/11/2023 10:09:34 06/03/2023 06/03/2023 [...] patient more than half of this in pjov-ki-plmg conversation Not available 06/03/2023 11:06:01 Plan of Treatment Reminders Order Date Submit Date Provider Last Modified By Organization Details Last Modified Time Details Appointments None recorded. Lab None recorded. Referral physical therapist referral - see attached order- please schedule pt 2022 023 [email or web address] [facility], [address] [place], [address], 3 14:21:10 Procedures injection/a spiration joint/bursa (PROC) - in office procedure, administere d by provider 2022 023 [email or web address] In-Office Order, Internal Use Only DO Not Attach Compendium DO Not Attach Compendium, Do Not Delete/merge, [id number] 09:57:30 Surgeries None recorded. Imaging XR, shoulder 2022 023 [facility] [place], [address], [place], [address], 3 11:30:58 XR, shoulder 2022 023 [facility] [place], [address], [place], [address], 3 13:10:33 XR, elbow 2022 023 [email or web address] [facility] [place], [address], [place], [address], 3 13:52:51 XR, shoulder 2022 023 [facility] [place], [address], [place], [address], 3 12:30:32 XR, wrist 2022 023 [email or web address] [facility] [place], [address], [place], [address], 3 13:52:51 Medication Orders Kenalog 10 mg/mL suspension for injection 2022 023 [facility], [address] [place], [address], 3 13:10:33 ropivacaine (PF) 5 mg/mL (0.5 %) injection solution 2022 023 [facility], [address] [place], [address], 13:10:33 Patient TargetsNo targets recorded. Patient InstructionsNo [...] No observ ation record ed. [facility] [place] [address], [place], [address], 04/22/2023 13:39:16 04/22/20 XR, wrist No observ ation record ed. [facility] [place] [address], [place], [address], 04/22/2023 13:38:39 06/09/20 23 XR, elbow No observ ation record ed. [facility] [place] [address], [address], 04/22/2023 13:38:16 05/11/20 23 XR, shoul janet No observ ation record ed. [facility] [place] [address], [address], 05/11/2023 10:06:48 06/03/20 23 XR, shoul janet No observ ation record ed. [facility] [place] [address], [address], 06/03/2023 11:03:45 Result Notes None recorded. Problems Name Problem SNOMED Code Status Onset Date Resolution Date Notes Provider Name and Address Organization Details Recorded Time History of total knee arthroplas ty 2036200212295 Active 2021 Not Available [facility] 3 00:55:20 Pain of left shoulder joint 3056891506596 9109 Active 2021 Not Available [facility] 3 00:55:20 Stable angina 339747550 Active 2018 Not Available [facility] 3 00:55:20 Enthesopat hy of hip region 59906998 Active Not Available [facility] 3 00:55:20 Osteoarthr itis of left knee joint 3907688870010 09 Active 2018 Not Available [facility] 3 00:55:20 Osteoarthr itis 422771429 Active Not Available [facility] 3 00:55:20 Pain of left hip joint 2422741631138 00 Active 2022 FREDERICK Mobley, [facility] [employer] [facility] 3 10:18:52 Pain of right shoulder joint 0834434972718 9100 Active 2022 FREDERICK Mobley, [place] [facility] 3 10:19:32 Partial thickness rotator cuff tear 500254532 Active 2022 Karlie Randall RMA null, [facility] 3 09:54:19 Vitamin D deficiency 67538881 Active 2022 Nava Jose, [employer] null, [facility] 3 13:32:39 Closed fracture of upper end of humerus 93572870 Active 2022 Karlie Randall RMA null, [facility] 3 12:06:45 Pain of left elbow joint 8779346284872 9104 Active 2022 aKrlie Randall RMA null, [facility] 3 12:07:11 Pain of left wrist 8737695655089 02 Active 2022 Karlie Randall RMA [place], [facility] 3 12:53:17 Problem Notes None recorded. Medical Equipment None Reported. Allergies Allergen ID Allergen Name Allergen Category Reaction Reaction Severity Criticality Documentation Date Start Date Code Code System Note Provider Name and Address Organization Details Recorded Time 1368 latex environme nt,medica tion rash Not available Not available 01/12/2023 92257 91 RxNorm BLIST ERS Not Available [facility] 3 01:02:40 1369 bacitraci n medicatio n Not available Not available Not available 01/12/20232018 1291 RxNorm cause d infec teed 2nd degre e no rash or sob Not Available [facility] 3 01:02:40 Medications Name Sig Start Date [...] suspension for injection in office 2022 active [facility]: 0003- 0494- 20 Not Available Not Available [...] administe red by the provider 06/12 completed [facility]: 0409- 4276- 17 Not Available Not Available [...] %) injection solution in office 2022 active [facility] [address]- 01 Not Available Not Available Not [...] Updated DateTime 03/16/2023 162.56 cm Karlie Randall [facility] [employer] [facility] 03/16/2023 09:52:09 Date Recorded Body height Provider Name an d Address Organization Details Last Updated DateTime 04/07/2023 162.56 cm Karlie Randall [facility] [employer] [facility] 04/07/2023 12:22:07 Date Recorded Body height Provider Name an d Address Organization Details Last Updated DateTime 04/22/2023 162.56 cm Karlie Randall [facility] [employer] [facility] 04/22/2023 12:04:48 Date Recorded Body height Provider Name an d Address Organization Details Last Updated DateTime 05/11/2023 162.56 cm Karlie Randall [facility] [employer] [facility] 05/11/2023 09:04:41 Date Recorded Body height Provider Name an d Address Organization Details Last Updated DateTime 06/03/2023 162.56 cm Karlie Randall [facility] [employer] [facility] 06/03/2023 10:23:22 Social History None recorded. Functional Status Question Answer Note LastModified by Organizat ion Details LastModified Time What is your level of alcohol consumption? Occasional [id number] Information not available 01/12/2023 Mental Status None recorded. Family History Relationship Description Onset Age of this Age Resolved Age Notes LastModified by Organization Details LastModified Time Father Heart disease [id number].222 [id number] Not available 01/12/2023 00:49:06 Father Hypertensive disorder MIGRATION.322 [id number] Not available 01/12/2023 00:49:06 Mother Heart disease MIGRATION.849 [id number] Not available 01/12/2023 00:49:06 Mother Hypertensive disorder MIGRATION.405 [id number] Not available 01/12/2023 00:49:06 Brother Heart disease MIGRATION.996 [id number] Not available 01/12/2023 00:49:06 Medical History Condition [...] HAVE YOU BEEN HOSPITALIZED OR SEEN IN [facility] ER IN THE PAST YEAR ? [...] SNOMED-CT Code Diagnosis ICD10 Code Diagnosis Note [id number] Aydin Pritchard MD [facility] [place] [address] [place] [address] 01/12/2021 00:00:00 01/12/2021 14:46:55 [id number] Aydin Pritchard MD [facility] [place] [address] [place] [address] 01/26/2021 00:00:00 01/26/2021 15:38:38 [id number] MD SALO [facility] [place] [address] [place] [address] 04/03/2021 00:00:00 04/03/2021 09:59:55 [id number] MD SALO [facility] [place] [address] [place] [address] 05/01/2021 00:00:00 05/01/2021 09:14:43 [id number] MD SALO [facility] [address] [place] [address] 06/04/2021 00:00:00 06/04/2021 11:10:45 [id number] MD SALO [facility] [place] [address] [place] [address] 06/12/2021 00:00:00 06/13/2021 12:11:52 [id number] MD CHANDU [facility] [place] [address] [place] [address] 07/10/2021 00:00:00 07/10/2021 09:44:19 [id number] Aydin Pritchard MD [facility] [place] [address] [place] [address] 07/24/2021 00:00:00 07/24/2021 12:01:16 [id number] MD SALO [facility] [place] [address] [place] [address] 01/01/2022 00:00:00 01/01/2022 10:41:38 [id number] MD CHANDU [facility] [place] [address] [place] [address] 04/16/2022 00:00:00 04/16/2022 09:57:05 [id number] ROSALIA Owens [facility] [place] [address] [place] [address] 04/30/2022 00:00:00 04/30/2022 09:18:47 [id number] Aydin Pritchard MD [address] [address] 02/03/2023 09:59:49 02/03/2023 11:15:08 Pain of right shoulder joint 9291937902 9320563 M25.511 [id number] Aydin Pritchard MD [facility] [place] [address] [place] [address] 03/16/2023 09:46:32 03/16/2023 10:51:04 Partial thickness rotator cuff tear 929932922 M75.101 [id number] Aydin Pritchard MD [address] [address] 04/07/2023 12:05:17 04/08/2023 09:46:52 Pain of left shoulder joint 4689099017 3782009 M25.512 [id number] Aydin Pritchard MD [facility] [place] [address] [place] [address] 04/22/2023 11:58:33 04/22/2023 13:52:51 Closed fracture of upper end of humerus 37757116 S42.202D Pain of le ft elbow joint 7688905900 8928655 M25.522 Pain of left wrist 67364 59758 36664 M25.532 [id number] Aydin Pritchard MD [facility] [place] [address] [place] [address] 05/11/2023 09:00:00 05/11/2023 10:14:12 Closed fracture of upper end of humerus 01813360 S42.202D Pain of ri ght shoulder joint 8198145045 4998047 M25.511 [id number] Aydin Pritchard MD [facility] [place] [address] [facility] [address] [place] [address] 06/03/2023 10:10:44 06/03/2023 11:23:28 Closed fracture of upper end of humerus 48096881 S4 Health Concerns Section Related Observation LastModified by Organization Detai ls LastModified Time None Recorded Concern Status LastModified by Organization Details LastModified Time None Recorded Advance Directives Directive None Recorded Payers Encounter Date Sequence Insurance Name Policy Number Policy Ba Covered Member ID Ba Member ID Guarantor Name 03/16/2023 1 [place] Betzy S Reddo [id number] Betzy S Reddo 03/16/2023 2 [place] [id number] Betzy S Reddo [id number] Betzy S Reddo 04/07/2023 1 [place] Betzy S Reddo [id number] Betzy S Reddo 04/07/2023 2 [place] [id number] Betzy S Reddo [id number] Betzy S Reddo 04/22/2023 1 [place] Betzy S Reddo [id number] Betzy S Reddo 04/22/2023 2 [place] [id number] Betzy S Reddo [id number] Betzy S Reddo 05/11/2023 1 [place] Betzy S Reddo [id number] Betzy S Reddo 05/11/2023 2 [place] [id number] Betzy S Reddo [id number] Betzy S Reddo 06/03/2023 1 [place] Betzy S Reddo [id number] Betzy S Reddo 06/03/2023 2 [place] [id number] Betzy S Reddo [id number] Betzy S Reddo Notes Date Note [...] with supraspinatus insertional disease. Aydin Pritchard MD [address] [place] [address], [place] [address], [place], [address], [place] [facility] 04/07/2023 19:53:42 OBGyn Episode No OBEpisode recorded.
--- OUTSIDE RECORDS SUMMARY | 2025-04-22 09:41 | XMS_ITS ---
Author Organization [facility] Address [address] [place], [place] [address] Care Team Providers Care Marine Fireman Name Role Phone LISA BUTLER Unavailable [phone] Janeth Viramontes Unavailable Unavailable Allergies Allergen (clinical [...] 1000 MG Extended Release Oral Tablet [Ranexa]Original [id number] HR ranolazine 1000 MG Extended Release Oral Tablet [Ranexa] *Reorder from [facility] for eRx and Interaction Alerts* 6 Active calcium carbonate 600 MG / cholecalciferol 125 UNT Oral Tablet ORAL calcium carbonate 600 MG / cholecalciferol 125 UNT Oral TabletOriginal Medicationcalcium carbonate 600 MG / cholecalciferol 125 UNT Oral Tablet *Reorder from [facility] for eRx and Interaction Alerts* 6 Active ciclopirox 80 MG/ML Topical Solution ciclopirox 80 MG/ML Topical SolutionOriginal Medicationciclopirox 80 MG/ML Topical Solution *Reorder from [facility] for eRx and Interaction Alerts* 7 Active amlodipine 10 MG Oral Tablet ORAL amlodipine 10 MG Oral TabletOriginal Medicationamlodipine 10 MG Oral Tablet *Reorder from [facility] for eRx and Interaction Alerts* 0 Active aspirin 81 MG Delayed Release Oral Tablet ORAL aspirin 81 MG Delayed Release Oral TabletOriginal Medicationaspirin 81 MG Delayed Release Oral Tablet *Reorder from [facility] for eRx and Interaction Alerts* 6 Active Lisinopril 10 MG Oral Tablet ORAL lisinopril 10 MG Oral TabletOriginal Medicationlisinopril 10 MG Oral Tablet *Reorder from [facility] for eRx and Interaction Alerts* 0 Active urea 400 MG/ML Topical Cream CUTANEOUS urea 400 MG/ML Topical CreamOriginal Medicationurea 400 MG/ML Topical Cream *Reorder from [facility] for eRx and Interaction Alerts* 3 Active Famotidine 20 MG Oral Tablet ORAL famotidine 20 MG Oral TabletOriginal Medicationfamotidine 20 MG Oral Tablet *Reorder from [facility] for eRx and Interaction Alerts* 0 Active Isosorbide Mononitrate 20 MG Oral Tablet ORAL isosorbide mononitrate 20 MG Oral TabletOriginal Medicationisosorbide mononitrate 20 MG Oral Tablet *Reorder from [facility] for eRx and Interaction Alerts* 0 Active Furosemide 40 MG Oral Tablet ORAL furosemide 40 MG Oral TabletOriginal Medicationfurosemide 40 MG Oral Tablet *Reorder from [facility] for eRx and Interaction Alerts* 0 Active levothyroxine sodium 0.2 MG Oral Tablet ORAL levothyroxine sodium 0.2 MG Oral TabletOriginal Medicationlevothyroxine sodium 0.2 MG Oral Tablet *Reorder from [facility] for eRx and Interaction Alerts* 0 Active Medrol Dosepak ORAL Medrol DosepakOr iginal MedicationMedrol Dosepak *Reorder from [facility] for eRx and Interaction Alerts* 3 Active pantoprazole 40 MG Delayed Release Oral Tablet ORAL pantoprazole 40 MG Delayed Release Oral TabletOriginal Medicationpantoprazole 40 MG Delayed Release Oral Tablet *Reorder from [facility] for eRx and Interaction Alerts* 0 Active clotrimazole 10 MG/ML Topical Solution CUTANEOUS clotrimazole 10 MG/ML Topical SolutionOriginal Medicationclotrimazole 10 MG/ML Topical Solution *Reorder from [facility] for eRx and Interaction Alerts* 4 Active ipratropium bromide 0.042 MG/ACTUAT Metered Dose Nasal [place] ipratropium bromide 0.042 MG/ACTUAT Metered Dose Nasal SprayOriginal Medicationipratropium bromide 0.042 MG/ACTUAT Metered Dose Nasal [place] *Reorder from [facility] for eRx and Interaction Alerts* 0 Active Encounters Encounter Location Date Provider Diagnosis [facility] [address] [place], [place] [id number] 03/18/2025 LISA SNOOK Tinea unguium B35.1 ; Pain in right foot M79.671 ; Pain in left foot M79.672 ; Atherosclerosis of [place] arteries of extremities with intermittent claudication, bilateral [...] foot (ICD-10 - M79.672) 03/18/2025 Atherosclerosis of [place] arteries of extremities with intermittent claudication, bilateral [...] Name:LISA BUTLER, 01:00:00 PM, [address], [address], [id number], Progress Notes * JENNIFERSAVANNA TILLMANARA SDOB:[birth year] (79 yo F)Acc No.[id number]:03/18/2025 Patient: FREDDIE QUARLES Provider: Ramirez Butler DPM :1945 A ge:79 Y S ex:Female Date:03/18/2025 Address:[address] [place] [address] Subjective: * Chief Complaints: * 1 . [...] Medicationfurosemide 40 MG Oral Tablet *Reorder from [facility] for eRx and Interaction Alerts*, Taking Famotidine 20 MG Oral Tablet ORAL , Notes to Pharmacist: famotidine 20 MG Oral TabletOriginal Medicationfamotidine 20 MG Oral Tablet *Reorder from [facility] for eRx and Interaction Alerts*, Taking Isosorbide Mononitrate 20 MG Oral Tablet ORAL , Notes to Pharmacist: isosorbide mononitrate 20 MG Oral TabletOriginal Medicationisosorbide mononitrate 20 MG Oral Tablet *Reorder from [facility] for eRx and Interaction Alerts*, Taking Lisinopril 10 MG Oral Tablet ORAL , Notes to Pharmacist: lisinopril 10 MG Oral TabletOriginal Medicationlisinopril 10 MG Oral Tablet *Reorder from [facility] for eRx and Interaction Alerts*, Taking 12 HR ranolazine 1000 MG Extended Release Oral Tablet [Ranexa] ORAL , Notes to Pharmacist: 12 HR ranolazine 1000 MG Extended Release Oral Tablet [Ranexa]Original Ccftlawdos22 HR ranolazine 1000 MG Extended Release Oral Tablet [Ranexa] *Reorder from [facility] for eRx and Interaction Alerts*, Taking amlodipine 10 MG Oral Tablet ORAL , Notes to Pharmacist: amlodipine 10 MG Oral TabletOriginal Medicationamlodipine 10 MG Oral Tablet *Reorder from [facility] for eRx and Interaction Alerts*, Taking aspirin 81 MG Delayed Release Oral Tablet ORAL , Notes to Pharmacist: aspirin 81 MG Delayed Release Oral TabletOriginal Medicationaspirin 81 MG Delayed Release Oral Tablet *Reorder from [facility] for eRx and Interaction Alerts*, Taking calcium carbonate 600 MG / cholecalciferol 125 UNT Oral Tablet ORAL , Notes to Pharmacist: calcium carbonate 600 MG / cholecalciferol 125 UNT Oral TabletOriginal Medicationcalcium carbonate 600 MG / cholecalciferol 125 UNT Oral Tablet *Reorder from [facility] for eRx and Interaction Alerts*, Taking ciclopirox 80 MG/ML Topical Solution , Notes to Pharmacist: ciclopirox 80 MG/ML Topical SolutionOriginal Medicationciclopirox 80 MG/ML Topical Solution *Reorder from [facility] for eRx and Interaction Alerts*, Taking clotrimazole 10 MG/ML Topical Solution CUTANEOUS , Notes to Pharmacist: clotrimazole 10 MG/ML Topical SolutionOriginal Medicationclotrimazole 10 MG/ML Topical Solution *Reorder from [facility] for eRx and Interaction Alerts*, Taking ipratropium bromide 0.042 MG/ACTUAT Metered Dose Nasal [place] , Notes to Pharmacist: ipratropium bromide 0.042 MG/ACTUAT Metered Dose Nasal Spray[employer] Medicationipratropium bromide 0.042 MG/ACTUAT Metered Dose Nasal [place] *Reorder from [facility] for eRx and Interaction Alerts*, Taking levothyroxine sodium 0.2 MG Oral Tablet ORAL , Notes to Pharmacist: levothyroxine sodium 0.2 MG Oral TabletOriginal Medicationlevothyroxine sodium 0.2 MG Oral Tablet *Reorder from [facility] for eRx and Interaction Alerts*, Taking Medrol Dosepak ORAL , Notes to Pharmacist: Medrol DosepakOriginal MedicationMedrol Dosepak *Reorder from [facility] for eRx and Interaction Alerts*, Taking pantoprazole 40 MG Delayed Release Oral Tablet ORAL , Notes to Pharmacist: pantoprazole 40 MG Delayed Release Oral TabletOriginal Medicationpantoprazole 40 MG Delayed Release Oral Tablet *Reorder from [facility] for eRx and Interaction Alerts*, Taking urea 400 MG/ML Topical Cream CUTANEOUS , Notes to Pharmacist: urea 400 MG/ML Topical CreamOriginal Medicationurea 400 MG/ML Topical Cream *Reorder from [facility] for eRx and Interaction Alerts*, Medication [...] - M79.672 4 . A therosclerosis of [place] arteries of extremities with intermittent claudication, bilateral [...] 1055 TRIM SKIN LESION, Modifiers: Q8 , 79044 DEBRIDE NAIL, 6 OR MORE, Modifiers: 59 , Q8 * Follow Up: 1 0 - 12 weeks (Reason: At-Risk Foot care, sooner if problems develop.) * Billing Information: * Visit Code: * Procedure Codes: 10334 TRIM SKIN LESION. Modifiers: Q8 53633 DEBRIDE NAIL, 6 OR MORE. Modifiers: 59, Q8 * Electronic signature of LISA BUTLER DPM on 04/22/2025 at 09:40 AM CDT Sign off status: Pending * Provider: Ramirez Butler DPM Date: 0 03/18/2025 Generated for Santi torres/[place]/eTransmitting on: 0 04/22/2025 09:40 AM CDT History and Physical Notes * [...]
--- OUTSIDE RECORDS SUMMARY | 2025-04-22 09:41 | XMS_ITS | Patient Health Record ---
Author Organization [facility] Address [address] [place], [place] [address] Care Team Providers Care General Partner Name Role Phone LISA BUTLER Unavailable [phone] Janeth Viramontes Unavailable Unavailable Allergies Allergen (clinical [...] sodium 0.2 MG Oral Tablet *Reorder from [facility] for eRx and Interaction Alerts* 0 Active Lisinopril 10 MG Oral Tablet ORAL lisinopril 10 MG Oral TabletOriginal Medicationlisinopril 10 MG Oral Tablet *Reorder from [facility] for eRx and Interaction Alerts* 0 Active urea 400 MG/ML Topical Cream CUTANEOUS urea 400 MG/ML Topical CreamOriginal Medicationurea 400 MG/ML Topical Cream *Reorder from [facility] for eRx and Interaction Alerts* 3 Active 12 HR ranolazine 1000 MG Extended Release Oral Tablet [Ranexa] ORAL 12 HR ranolazine 1000 MG Extended Release Oral Tablet [Ranexa]Original [id number] HR ranolazine 1000 MG Extended Release Oral Tablet [Ranexa] *Reorder from [facility] for eRx and Interaction Alerts* 6 Active Famotidine 20 MG Oral Tablet ORAL famotidine 20 MG Oral TabletOriginal Medicationfamotidine 20 MG Oral Tablet *Reorder from [facility] for eRx and Interaction Alerts* 0 Active Medrol Dosepak ORAL Medrol DosepakOr iginal MedicationMedrol Dosepak *Reorder from [facility] for eRx and Interaction Alerts* 3 Active Isosorbide Mononitrate 20 MG Oral Tablet ORAL isosorbide mononitrate 20 MG Oral TabletOriginal Medicationisosorbide mononitrate 20 MG Oral Tablet *Reorder from [facility] for eRx and Interaction Alerts* 0 Active pantoprazole 40 MG Delayed Release Oral Tablet ORAL pantoprazole 40 MG Delayed Release Oral TabletOriginal Medicationpantoprazole 40 MG Delayed Release Oral Tablet *Reorder from [facility] for eRx and Interaction Alerts* 0 Active calcium carbonate 600 MG / cholecalciferol 125 UNT Oral Tablet ORAL calcium carbonate 600 MG / cholecalciferol 125 UNT Oral TabletOriginal Medicationcalcium carbonate 600 MG / cholecalciferol 125 UNT Oral Tablet *Reorder from [facility] for eRx and Interaction Alerts* 6 Active ciclopirox 80 MG/ML Topical Solution ciclopirox 80 MG/ML Topical SolutionOriginal Medicationciclopirox 80 MG/ML Topical Solution *Reorder from [facility] for eRx and Interaction Alerts* 7 Active amlodipine 10 MG Oral Tablet ORAL amlodipine 10 MG Oral TabletOriginal Medicationamlodipine 10 MG Oral Tablet *Reorder from [facility] for eRx and Interaction Alerts* 0 Active aspirin 81 MG Delayed Release Oral Tablet ORAL aspirin 81 MG Delayed Release Oral TabletOriginal Medicationaspirin 81 MG Delayed Release Oral Tablet *Reorder from [facility] for eRx and Interaction Alerts* 6 Active Furosemide 40 MG Oral Tablet ORAL furosemide 40 MG Oral TabletOriginal Medicationfurosemide 40 MG Oral Tablet *Reorder from [facility] for eRx and Interaction Alerts* 0 Active clotrimazole 10 MG/ML Topical Solution CUTANEOUS clotrimazole 10 MG/ML Topical SolutionOriginal Medicationclotrimazole 10 MG/ML Topical Solution *Reorder from [facility] for eRx and Interaction Alerts* 4 Active ipratropium bromide 0.042 MG/ACTUAT Metered Dose Nasal [place] ipratropium bromide 0.042 MG/ACTUAT Metered Dose Nasal SprayOriginal Medicationipratropium bromide 0.042 MG/ACTUAT Metered Dose Nasal [place] *Reorder from [facility] for eRx and Interaction Alerts* 0 Active Immunizations Vaccine Route Administration Date Status Comme nts Influenza, high dose seasonal Unknown 09/09/2023 Admini stered Encounters Encounter Location Date Provider Diagnosis [facility] [address] [place] [address] [id number] 03/18/2025 LISA SNOOK Tinea unguium B35.1 ; Pain in right foot M79.671 ; Pain in left foot M79.672 ; Atherosclerosis of [place] arteries of extremities with intermittent claudication, bilateral legs I70.213 and Acquired keratosis [keratoderma] palmaris et plantaris L85.1 [facility] [address] [place] [address] [id number] 06/25/2024 LISA SNOOK Tinea unguium B35.1 ; Pain in right foot M79.671 ; Pain in left foot M79.672 ; Atherosclerosis of [place] arteries of extremities with intermittent claudication, bilateral legs I70.213 and Acquired keratosis [keratoderma] palmaris et plantaris L85.1 [facility] [address] [place] [address] [id number] 09/17/2024 LISA SNOOK Tinea unguium B35.1 ; Pain in right toe(s) M79.674 ; Pain in left toe(s) M79.675 and Atherosclerosis of [place] arteries of extremities with intermittent claudication, bilateral legs I70.213 [facility] [address] [place] [address] [id number] 12/17/2024 LISA SNOOK Tinea unguium B35.1 ; Pain in right foot M79.671 ; Pain in left foot M79.672 ; Atherosclerosis of [place] arteries of extremities with intermittent claudication, bilateral [...] foot (ICD-10 - M79.672) 06/25/2024 Atherosclerosis of [place] arteries of extremities with intermittent claudication, bilateral legs (ICD-10 - I70.213) 09/17/2024 Atherosclerosis of [place] arteries of extremities with intermittent claudication, bilateral legs (ICD-10 - I70.213) 12/17/2024 Atherosclerosis of [place] arteries of extremities with intermittent claudication, bilateral legs (ICD-10 - I70.213) 03/18/2025 Atherosclerosis of [place] arteries of extremities with intermittent claudication, bilateral [...] Appt Details Provider Name:LISA BUTLER, 01:00:00 PM, [address], [facility], [place], [place], [id number], Insurance Providers Payer Name Payer Address Payer Phone Subscriber Number Group Number Insured Name Patient Relationship to Insured Coverage Start Date Coverage End Date Medicare Part B [place] [address] [place] [address] [id number] FREDDIE MARTÍNEZ Self - patient is the insured [facility] ATTN CLAIMS [address] [place] [address] [id number] FREDDIE MARTÍNEZ Self - patient is the insured
[2025-04-22 09:43] LABS: Anion Gap 3 mmol/L (4-12); Blood Urea Nitrogen 15 mg/dL (7-17); Calcium 9.2 mg/dL (8.4-10.2); Carbon Dioxide 35 mmol/L (22-30); Chloride 91 mmol/L (98-107); Estimated Glomerular Filt Rate > 60; Glucose 85 mg/dL (65-110); Osmolality Calculated 267 mOsm/kg (285-295); Potassium 4.6 mmol/L (3.4-5.0); Sodium 129 mmol/L (137-145)
== END 2025-04-22 09:04 | disposition home or self-care (01) ==
LOC: CHSLAB 09:06
PROVIDERS: PCP Internal Medicine; Visit Provider Internal Medicine
DX: E87.6 Hypokalemia (principal)
CPT/HCPCS: 36415; 80048

== ENCOUNTER 2025-04-30 08:58 | Outpatient (CLI) | payer MEDICARE, SELFPAY ==
--- OUTSIDE RECORDS SUMMARY | 2025-04-30 09:29 | XMS_ITS | Clinical Summary ---
Author Organization [facility] [address] [facility] [address] Address [address] [facility] [address] [place] [address] Care Team Providers Care Hone Operator Name Role Phone Janeth Viramontes MD Primary Care Provider [phone] Allergies Active Allergy Reactions Criticality Noted Date [...] by mouth daily Active cholecalciferol (VITAMIN D-3) 82274 unit capsule Take 1 capsule (10,000 Units [...] mg SL tabletIndication s:Coronary artery disease of [place] artery of [place] heart with stable angina pectoris DISSOLVE ONE [...] (04/01/2020): Added automatically from request for surgery [id number] Palpitations 01/09/2020 Chronic fatigue 01/09/2020 Preoperative cardiovascular examination 07/04/20 19 OWENS (dyspnea on exertion) 04/20/2018 Orthostatic hypotension 10/19/2016 Overview (02/18/2017): Orthostatic hypotension 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 (02/18/2017): Coronary vasospasm Thoracic back pain 12/29/2015 Overview (02/18/2017): Thoracic back pain, unspecified back pain laterality Coronary arteriosclerosis in [place] artery 11/04 Overview (02/18/2017): Coronary artery disease involving [place] coronary artery of [place] heart with other form of angina pectoris Left ventricular dilatation 11/04/2015 Overview (02/18/2017): LVE (left ventricular enlargement) Coronary artery disease invo lving [place] coronary artery of [place] heart with angina pectoris with documented spasm [...] Description 02/08/2025 1:00 PM CDT Office Visit [facility] Cardiology [address] [place] [address] Christine Mendoza NP Coronary artery disease of [place] artery of [place] heart with stable angina pectoris (Primary Dx); [...] on file Legal Sex Female 3:37 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 Gender Identity Female 05/06/2020 3:45 PM CDT Sexual Orientation Straight 01/31/2020 9: 43 AM CDT Obstetrics History Last Filed Vital Signs Vital Sign Reading Time Taken Comments Blood Pressure 128/68 02/08/2025 12:51 PM CDT Pulse 76 02/08/2025 12:51 PM CDT Temperature 36.8 C (98.3 F) 04/02/2020 12:00 PM CDT Respiratory Rate 16 11/10/2021 9:02 AM DINKEY OPERATOR Oxygen Saturation 95% 02/08/2025 12: 51 [...] history exists Medical Devices Explanted Type Area Assistant Construction Superintendent Device Identifier Shelf Expiration Date Model / Serial / Lot [employer] 6571 Chris Flexi-Stent 7fr 3cm Small Pigtail Flexible .035in Stent - [id number] Implanted:Qty : 1 on 03/31/2020 by Ricky Jeter MD at [facility] Explanted:Qty : 1 on 04/02/2020 by Ricky Jeter MD at [facility] Stent N/A: Pancreas [employer] 09/13/2024 [id number] / / [id number] Conmed Purnima [id number] [place] Viabil 10mm 8.5fr 6cm 200cm Fully Covered Self Expand Pull - [id number] - [id number] Implanted:Qty : 1 on 03/31/2020 by Ricky Jeter MD at [facility] Explanted:Qty : 1 on 04/02/2020 by Ricky Jeter MD at [facility] Stent N/A: Bile Duct Conmed Purnima 12/20/2022 [id number] / [id number] / Insurance MEDICARE MEDICARE [facility] MEDICARE BLUE CROSS MEDICARE SUPPLEMENT Advance Directives For more information, please contact: [phone] * Full Code (Latest Code Status on File) Date Activated Date Inactivated Comments 03/31/2020 8:47 AM 04/02/2020 5:04 PM Care Teams Hone Operator Relationship Specialty Start Date End Date Janeth Viramontes MD [address] [place] [address] [facility] - General 09/16/11
--- OUTSIDE RECORDS SUMMARY | 2025-04-30 09:29 | XMS_ITS | Referral Summary ---
Author Organization [facility] [address] [place] [address] Address [address] [facility] [address] [place] [address] Care Team Providers Care Clinical Nursing Assistant Name Role Phone Janeth Viramontes MD Primary Care Provider Encounters Date Type Department Care Team Description 02/08/2025 1:00 PM CDT Office Visit [facility] Cardiology [address] [facility] [address] [place] [address] Christine Mendoza NP Coronary artery disease of [place] artery of [place] heart with stable angina pectoris (Primary Dx); [...] by mouth daily Active cholecalciferol (VITAMIN D-3) 88655 unit capsule Take 1 capsule (10,000 Units [...] mg SL tabletIndication s:Coronary artery disease of [place] artery of [place] heart with stable angina pectoris DISSOLVE ONE [...] (04/01/2020): Added automatically from request for surgery [id number] Palpitations 01/09/2020 Chronic fatigue 01/09/2020 Preoperative cardiovascular examination 07/04/20 19 OWENS (dyspnea on exertion) 04/20/2018 Orthostatic hypotension 10/19/2016 Overview (02/18/2017): Orthostatic hypotension 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 (02/18/2017): Coronary vasospasm Thoracic back pain 12/29/2015 Overview (02/18/2017): Thoracic back pain, unspecified back pain laterality Coronary arteriosclerosis in [place] artery 11/04 Overview (02/18/2017): Coronary artery disease involving [place] coronary artery of [place] heart with other form of angina pectoris Left ventricular dilatation 11/04/2015 Overview (02/18/2017): LVE (left ventricular enlargement) Coronary artery disease invo lving [place] coronary artery of [place] heart with angina pectoris with documented spasm [...] on file 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 Gender Identity Female 05/06/2020 3:45 PM CDT Sexual Orientation Straight 01/31/2020 9: 43 AM CDT Last Filed Vital Signs Vital Sign Reading Time Taken Comments Blood Pressure 128/68 02/08/2025 12:51 PM CDT Pulse 76 02/08/2025 12:51 PM CDT Temperature 36.8 C (98.3 F) 04/02/2020 12:00 PM CDT Respiratory Rate 16 11/10/2021 9:02 AM CLIENT INSIGHTS CONSULTANT Oxygen Saturation 95% 02/08/2025 12: 51 PM CDT Inhaled Oxygen Concentration - - Weight 96.9 kg (213 lb 11.2 oz) 025 12:51 PM CDT Height 167.6 cm (5' 6) 02/08/2025 12:5 1 PM CDT Body Mass Index 34.49 02/08/2025 12:51 PM CDT Plan of Treatment Not on file Medical Devices Explanted Type Area 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 And Filling Machine Operator Device Identifier Shelf Expiration Date Model / Serial / Lot [employer] 6571 Chris Flexi-Stent 7fr 3cm Small Pigtail Flexible .035in Stent - [id number] Implanted:Qty : 1 on 03/31/2020 by Ricky Jeter MD at [facility] Explanted:Qty : 1 on 04/02/2020 by Ricky Jeter MD at [facility] Stent N/A: Pancreas [employer] 09/13/2024 [id number] / / [id number] Conmed Purnima [id number] [place] Viabil 10mm 8.5fr 6cm 200cm Fully Covered Self Expand Pull - [id number] - [id number] Implanted:Qty : 1 on 03/31/2020 by Ricky Jeter MD at [facility] Explanted:Qty : 1 on 04/02/2020 by Ricky Jeter MD at [facility] Stent N/A: Bile Duct Conmed Purnima 12/20/2022 [id number] / [id number] / Insurance MEDICARE [facility] MEDICARE BLUE CROSS MEDICARE SUPPLEMENT Advance Directives For more information, please contact: [phone] * Full Code (Latest Code Status on File) Date Activated Date Inactivated Comments 03/31/2020 8:47 AM 04/02/2020 5:04 PM Care Teams Clinical Nursing Assistant Relationship Specialty Start Date End Date Janeth Viramontes MD [address] [id number] PCP - General 09/16/11
--- OUTSIDE RECORDS SUMMARY | 2025-04-30 09:29 | XMS_ITS | Patient Health Record ---
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
--- OUTSIDE RECORDS SUMMARY | 2025-04-30 09:29 | XMS_ITS | Data Portability ---
Author Organization [place] - [facility], Main Office Address [address] [place] [address] Care Team Providers Care Cosmetician Name Role Phone RUBENS MONTOYA Primary Care Provider RUBENS MONTOYA Referring Provider [phone] Assessment Encounter Date Assessment Date Assessment LastModified [...] more than half the time spent in jvkv-ja-usde care. Not available 03/16/2023 10:23:27 04/07/2023 04/07/2023 [...] recommended that she take Citracal +D to [place] tablets a day in the time being. [...] than half of this time spent in ifwn-ik-grah care. Not available 04/07/2023 19:53:25 04/22/2023 04/22/2023 [...] patient more than half of this in zdia-nd-uvwi conversation Not available 04/22/2023 13:40:48 05/11/2023 05/11/2023 [...] patient more than half of this in duez-lq-tpcj conversation Not available 05/11/2023 10:09:34 06/03/2023 06/03/2023 [...] patient more than half of this in gcev-jw-etcv conversation Not available 06/03/2023 11:06:01 Plan of Treatment Reminders Order Date Submit Date Provider Last Modified By Organization Details Last Modified Time Details Appointments None recorded. Lab None recorded. Referral physical therapist referral - see attached order- please schedule pt 2022 023 [facility], [address] [place], [address], 3 14:21:10 Procedures injection/a spiration joint/bursa (PROC) - in office procedure, administere d by provider 2022 023 [email or web address] In-Office Order, Internal Use Only DO Not Attach Compendium DO Not Attach Compendium, Do Not Delete/merge, [address] 09:57:30 Surgeries None recorded. Imaging XR, shoulder 2022 023 [facility] [place], [address], [place], [address], 3 11:30:58 XR, shoulder 2022 023 [facility] [place], [address], [place], [address], 3 13:10:33 XR, elbow 2022 023 [email or web address] [facility] [place], [address], [place], [address], 3 13:52:51 XR, shoulder 2022 023 [facility] [place], [address], [place], [address], 3 12:30:32 XR, wrist 2022 023 [email or web address] [facility] [place], [address], [place], [address], 3 13:52:51 Medication Orders Kenalog 10 mg/mL suspension for injection 2022 023 [facility] [address] [place], [address], 3 13:10:33 ropivacaine (PF) 5 mg/mL (0.5 %) injection solution 2022 023 [facility] [address] [place], [address], 13:10:33 Patient TargetsNo targets recorded. Patient InstructionsNo [...] No observ ation record ed. [facility] [place] [address], [place], [address], 04/22/2023 13:39:16 04/22/20 XR, wrist No observ ation record ed. [facility] [place] [address], [place], [address], 04/22/2023 13:38:39 06/09/20 23 XR, elbow No observ ation record ed. [facility] [place] [address], [address], 04/22/2023 13:38:16 05/11/20 23 XR, shoul janet No observ ation record ed. [facility] [place] [address], [address], 05/11/2023 10:06:48 06/03/20 23 XR, shoul janet No observ ation record ed. [facility] [place] [address], [address], 06/03/2023 11:03:45 Result Notes None recorded. Problems Name Problem SNOMED Code Status Onset Date Resolution Date Notes Provider Name and Address Organization Details Recorded Time History of total knee arthroplas ty 1074259836288 Active 2021 Not Available [facility] 3 00:55:20 Pain of left shoulder joint 7491580344881 9109 Active 2021 Not Available [facility] 3 00:55:20 Stable angina 971038317 Active 2018 Not Available [facility] 3 00:55:20 Enthesopat hy of hip region 26746095 Active Not Available [facility] 3 00:55:20 Osteoarthr itis of left knee joint 3665165593038 09 Active 2018 Not Available [facility] 3 00:55:20 Osteoarthr itis 740220129 Active Not Available [facility] 3 00:55:20 Pain of left hip joint 9736568284439 00 Active 2022 FREDERICK Mobley, [facility] 3 10:18:52 Pain of right shoulder joint 2838152933336 9100 Active 2022 FREDERICK Mobley, [place] [facility] 3 10:19:32 Partial thickness rotator cuff tear 201364672 Active 2022 Karlie Randall RMA null, [facility] 3 09:54:19 Vitamin D deficiency 92534482 Active 2022 Nava Jose, DEPARTMENT SPECIALIST null, [facility] 3 13:32:39 Closed fracture of upper end of humerus 74564378 Active 2022 Karlie Randall RMA null, [facility] 3 12:06:45 Pain of left elbow joint 0122279395167 9104 Active 2022 Karlie Randall RMA null, [facility] 3 12:07:11 Pain of left wrist 4187201881924 02 Active 2022 Karlie Randall RMA [place], [facility] 3 12:53:17 Problem Notes None recorded. Medical Equipment None Reported. Allergies Allergen ID Allergen Name Allergen Category Reaction Reaction Severity Criticality Documentation Date Start Date Code Code System Note Provider Name and Address Organization Details Recorded Time 1368 latex environme nt,medica tion rash Not available Not available 01/12/2023 35302 91 RxNorm BLIST ERS Not Available [facility] 3 01:02:40 1369 bacitraci n medicatio n Not available Not available Not available 01/12/20232018 1291 RxNorm cause d infec teed 2nd degre e no rash or sob Not Available [facility] 3 01:02:40 Medications Name Sig Start Date [...] for injection in office 2022 active [facility]: 0003- 0494- 20 Not Available Not [...] red by the provider 06/12 completed [facility]: 0409- 4276- 17 Not Available Not [...] injection solution in office 2022 active [facility] 91922 -064- 01 Not Available Not Available Not [...] Updated DateTime 03/16/2023 162.56 cm Karlie Randall [facility] 03/16/2023 09:52:09 Date Recorded Body height Provider Name an d Address Organization Details Last Updated DateTime 04/07/2023 162.56 cm Karlie Randall [facility] [employer] 04/07/2023 12:22:07 Date Recorded Body height Provider Name an d Address Organization Details Last Updated DateTime 04/22/2023 162.56 cm Karlie Randall [facility] [employer] 04/22/2023 12:04:48 Date Recorded Body height Provider Name an d Address Organization Details Last Updated DateTime 05/11/2023 162.56 cm Karlie Randall [facility] [employer] 05/11/2023 09:04:41 Date Recorded Body height Provider Name an d Address Organization Details Last Updated DateTime 06/03/2023 162.56 cm Karlie Randall [facility] [employer] 06/03/2023 10:23:22 Social History None recorded. Functional Status Question Answer Note LastModified by Organizat ion Details LastModified Time What is your level of alcohol consumption? Occasional [id number] Information not available 01/12/2023 Mental Status None recorded. Family History Relationship Description Onset Age of this Age Resolved Age Notes LastModified by Organization Details LastModified Time Father Heart disease [id number] Not available 01/12/2023 00:49:06 Father Hypertensive disorder MIGRATION.984 [id number] Not available 01/12/2023 00:49:06 Mother Heart disease MIGRATION.550 [id number] Not available 01/12/2023 00:49:06 Mother Hypertensive disorder [id number].239 [id number] Not available 01/12/2023 00:49:06 Brother Heart disease MIGRATION.772 [id number] Not available 01/12/2023 00:49:06 Medical History Condition [...] FOOT PROBLEM N HEART VALVE DISORDERS N SOFT TISSUE INJURY N ALLERGIES/HAYFEVER N INFECTIOUS DISEASE N HEART ARRHYTHMIA N INSOMNIA N RHEUMATOID ARTHRITIS N HIGH CHOLESTEROL / HYPERLIPIDEMIA N EDEMA N CHRONIC PAIN SYNDROME N CAROTID BLOCKAGE N BACK / NECK PROBLEMS N HAVE YOU BEEN HOSPITALIZED OR SEEN IN [facility] IN THE PAST YEAR ? [...] SNOMED-CT Code Diagnosis ICD10 Code Diagnosis Note [id number] Aydin Pritchard MD [facility] [place] [address] [place] [address] 01/12/2021 00:00:00 01/12/2021 14:46:55 [id number] Aydin Pritchard MD [facility] [place] [address] [place] [address] 01/26/2021 00:00:00 01/26/2021 15:38:38 [id number] MD SALO [facility] [place] [address] [place] [address] 04/03/2021 00:00:00 04/03/2021 09:59:55 [id number] MD SALO [facility] [place] [address] [place] [address] 05/01/2021 00:00:00 05/01/2021 09:14:43 [id number] MD SALO [facility] [address] [place] [address] 06/04/2021 00:00:00 06/04/2021 11:10:45 [id number] MD SALO [facility] [place] [address] [place] [address] 06/12/2021 00:00:00 06/13/2021 12:11:52 [id number] MD CHANDU [facility] [place] [address] [place] [address] 07/10/2021 00:00:00 07/10/2021 09:44:19 [id number] Aydin Pritchard MD [facility] [place] [address] [place] [address] 07/24/2021 00:00:00 07/24/2021 12:01:16 [id number] MD SALO [facility] [place] [address] [place] [address] 01/01/2022 00:00:00 01/01/2022 10:41:38 [id number] MD CHANDU [facility] [place] [address] [place] [address] 04/16/2022 00:00:00 04/16/2022 09:57:05 [id number] ROSALIA Owens [facility] [place] [address] [place] [address] 04/30/2022 00:00:00 04/30/2022 09:18:47 [id number] Aydin Pritchard MD [address] [address] 02/03/2023 09:59:49 02/03/2023 11:15:08 Pain of right shoulder joint 9496199361 8436326 M25.511 [id number] Aydin Pritchard MD [facility] [place] [address] [place] [address] 03/16/2023 09:46:32 03/16/2023 10:51:04 Partial thickness rotator cuff tear 319434038 M75.101 [id number] Aydin Pritchard MD [address] [address] 04/07/2023 12:05:17 04/08/2023 09:46:52 Pain of left shoulder joint 5224601591 3117268 M25.512 [id number] Aydin Pritchard MD [facility] [place] [address] [place] [address] 04/22/2023 11:58:33 04/22/2023 13:52:51 Closed fracture of upper end of humerus 23548291 S42.202D Pain of le ft elbow joint 7580867000 0935967 M25.522 Pain of left wrist 83582 29507 60620 M25.532 [id number] Aydin Pritchard MD [facility] [place] [address] [place] [address] 05/11/2023 09:00:00 05/11/2023 10:14:12 Closed fracture of upper end of humerus 53141609 S42.202D Pain of ri ght shoulder joint 8654617298 0558790 M25.511 [id number] Aydin Pritchard MD [facility] [place] [address] [facility] [address] [place] [address] 06/03/2023 10:10:44 06/03/2023 11:23:28 Closed fracture of upper end of humerus 30955849 S4 Health Concerns Section Related Observation LastModified by Organization Detai ls LastModified Time None Recorded Concern Status LastModified by Organization Details LastModified Time None Recorded Advance Directives Directive None Recorded Payers Insurance Date Sequence Insurance Name Policy Number Policy Ba Covered Member ID Ba Member ID Guarantor Name 05/31/2023 1 [place] Betzy Palomino Reddo [id number] Betzy Palomino Reddo 06/09/2023 2 [place] [id number] Betzy Palomino Reddo [id number] Betzy Palomino Reddo 05/31/2023 [employer] ASSIGNED (MEDICARE DME REGION B) Betzy Palomino Reddo [id number] Betzy Palomino Reddo Notes Date Note Type Note Provider [...] with supraspinatus insertional disease. Aydin Pritchard MD [address] [place] [address], [place] [address], [place], [address], [place] [facility] [place] [facility] 04/07/2023 19:53:42 OBGyn Episode No OBEpisode recorded.
--- OUTSIDE RECORDS SUMMARY | 2025-04-30 09:29 | XMS_ITS | Patient Health Record ---
Author Organization [facility] Address [address] [place], [place] [address] Care Team Providers Care Sustainable Agriculture Faculty Name Role Phone LISA BUTLER Unavailable [phone] Janeth Viramontes Unavailable Unavailable Allergies Allergen (clinical [...] sodium 0.2 MG Oral Tablet *Reorder from [facility] for eRx and Interaction Alerts* 0 Active Lisinopril 10 MG Oral Tablet ORAL lisinopril 10 MG Oral TabletOriginal Medicationlisinopril 10 MG Oral Tablet *Reorder from [facility] for eRx and Interaction Alerts* 0 Active urea 400 MG/ML Topical Cream CUTANEOUS urea 400 MG/ML Topical CreamOriginal Medicationurea 400 MG/ML Topical Cream *Reorder from [facility] for eRx and Interaction Alerts* 3 Active 12 HR ranolazine 1000 MG Extended Release Oral Tablet [Ranexa] ORAL 12 HR ranolazine 1000 MG Extended Release Oral Tablet [Ranexa]Original Orolkrmupr99 HR ranolazine 1000 MG Extended Release Oral Tablet [Ranexa] *Reorder from [facility] for eRx and Interaction Alerts* 6 Active Famotidine 20 MG Oral Tablet ORAL famotidine 20 MG Oral TabletOriginal Medicationfamotidine 20 MG Oral Tablet *Reorder from [facility] for eRx and Interaction Alerts* 0 Active Medrol Dosepak ORAL Medrol DosepakOr iginal MedicationMedrol Dosepak *Reorder from [facility] for eRx and Interaction Alerts* 3 Active Isosorbide Mononitrate 20 MG Oral Tablet ORAL isosorbide mononitrate 20 MG Oral TabletOriginal Medicationisosorbide mononitrate 20 MG Oral Tablet *Reorder from [facility] for eRx and Interaction Alerts* 0 Active pantoprazole 40 MG Delayed Release Oral Tablet ORAL pantoprazole 40 MG Delayed Release Oral TabletOriginal Medicationpantoprazole 40 MG Delayed Release Oral Tablet *Reorder from [facility] for eRx and Interaction Alerts* 0 Active calcium carbonate 600 MG / cholecalciferol 125 UNT Oral Tablet ORAL calcium carbonate 600 MG / cholecalciferol 125 UNT Oral TabletOriginal Medicationcalcium carbonate 600 MG / cholecalciferol 125 UNT Oral Tablet *Reorder from [facility] for eRx and Interaction Alerts* 6 Active ciclopirox 80 MG/ML Topical Solution ciclopirox 80 MG/ML Topical SolutionOriginal Medicationciclopirox 80 MG/ML Topical Solution *Reorder from [facility] for eRx and Interaction Alerts* 7 Active amlodipine 10 MG Oral Tablet ORAL amlodipine 10 MG Oral TabletOriginal Medicationamlodipine 10 MG Oral Tablet *Reorder from [facility] for eRx and Interaction Alerts* 0 Active aspirin 81 MG Delayed Release Oral Tablet ORAL aspirin 81 MG Delayed Release Oral TabletOriginal Medicationaspirin 81 MG Delayed Release Oral Tablet *Reorder from [facility] for eRx and Interaction Alerts* 6 Active Furosemide 40 MG Oral Tablet ORAL furosemide 40 MG Oral TabletOriginal Medicationfurosemide 40 MG Oral Tablet *Reorder from [facility] for eRx and Interaction Alerts* 0 Active clotrimazole 10 MG/ML Topical Solution CUTANEOUS clotrimazole 10 MG/ML Topical SolutionOriginal Medicationclotrimazole 10 MG/ML Topical Solution *Reorder from [facility] for eRx and Interaction Alerts* 4 Active ipratropium bromide 0.042 MG/ACTUAT Metered Dose Nasal [place] ipratropium bromide 0.042 MG/ACTUAT Metered Dose Nasal Spr[employer] Medicationipratropium bromide 0.042 MG/ACTUAT Metered Dose Nasal [place] *Reorder from [facility] for eRx and Interaction Alerts* 0 Active Immunizations Vaccine Route Administration Date Status Comme nts Influenza, high dose seasonal Unknown 09/09/2023 Admini stered Encounters Encounter Location Date Provider Diagnosis [facility] [address] [place] [id number] 06/25/2024 LISA SNOOK Tinea unguium B35.1 ; Pain in right foot M79.671 ; Pain in left foot M79.672 ; 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, bilateral legs I70.213 and Acquired keratosis [keratoderma] palmaris et plantaris L85.1 [facility] [address] [place] [id number] 09/17/2024 LISA SNOOK Tinea unguium B35.1 ; Pain in right toe(s) M79.674 ; Pain in left toe(s) M79.675 and 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, bilateral legs I70.213 [facility] [place] [address] [place] [id number] 12/17/2024 LISA SNOOK Tinea unguium B35.1 ; Pain in right foot M79.671 ; Pain in left foot M79.672 ; 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, bilateral legs I70.213 and Acquired keratosis [keratoderma] palmaris et plantaris L85.1 [facility] [address] [place] [id number] 03/18/2025 LISA SNOOK Tinea unguium B35.1 ; Pain in right foot M79.671 ; Pain in left foot M79.672 ; 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, bilateral [...] foot (ICD-10 - M79.672) 06/25/2024 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, bilateral legs (ICD-10 - I70.213) 09/17/2024 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, bilateral legs (ICD-10 - I70.213) 12/17/2024 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, bilateral legs (ICD-10 - I70.213) 03/18/2025 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, bilateral [...] Appt Details Provider Name:LISA BUTLER, 01:00:00 PM, [address], [facility], [place], [place], [id number], Insurance Providers Payer Name Payer Address Payer Phone Subscriber Number Group Number Insured Name Patient Relationship to Insured Coverage Start Date Coverage End Date Medicare Part B [place] [address] [place] [address] [id number] FREDDIE MARTÍNEZ Self - patient is the insured [facility] ATTN CLAIMS [address] [place] [address] [id number] FREDDIE MARTÍNEZ Self - patient is the insured
[2025-04-30 09:43] LABS: Anion Gap 3 mmol/L (4-12); Blood Urea Nitrogen 18 mg/dL (7-17); Calcium 8.9 mg/dL (8.4-10.2); Carbon Dioxide 38 mmol/L (22-30); Chloride 84 mmol/L (98-107); Estimated Glomerular Filt Rate > 60; Glucose 111 mg/dL (65-110); Osmolality Calculated 262 mOsm/kg (285-295); Potassium 3.8 mmol/L (3.4-5.0); Sodium 125 mmol/L (137-145)
== END 2025-04-30 08:59 | disposition home or self-care (01) ==
LOC: CHSLAB 08:59
PROVIDERS: PCP Internal Medicine; Visit Provider Internal Medicine
DX: I10 Essential (primary) hypertension (principal)
CPT/HCPCS: 36415; 80048

== ENCOUNTER 2025-05-01 08:23 | Outpatient (CLI) | payer MEDICARE, SELFPAY ==
[2025-05-01 08:32] VITALS: BP 137/60; PULSE 67; RESP 18; TEMP 36; O2SAT 95
--- OUTSIDE RECORDS SUMMARY | 2025-05-01 08:47 | XMS_ITS | Referral Summary ---
Author Organization [facility] [address] [place] [address] Address [address] [facility] [address] [place] [address] Care Team Providers Care Maintenance Service Supervisor Name Role Phone Janeth Viramontes MD Primary Care Provider Encounters Date Type Department Care Team Description 02/08/2025 1:00 PM CDT Office Visit [facility] [address] [facility] [address] [place] [address] Christine Mendoza NP Coronary artery disease of [place] artery [place] heart with stable angina pectoris (Primary Dx); [...] by mouth daily Active cholecalciferol (VITAMIN D-3) 28465 unit capsule Take 1 capsule (10,000 Units [...] mg SL tabletIndication s:Coronary artery disease of [place] artery [place] heart with stable angina pectoris DISSOLVE ONE [...] (04/01/2020): Added automatically from request for surgery [id number] Palpitations 01/09/2020 Chronic fatigue 01/09/2020 Preoperative cardiovascular examination 07/04/20 19 OWENS (dyspnea on exertion) 04/20/2018 Orthostatic hypotension 10/19/2016 Overview (02/18/2017): Orthostatic hypotension 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 (02/18/2017): Coronary vasospasm Thoracic back pain 12/29/2015 Overview (02/18/2017): Thoracic back pain, unspecified back pain laterality Coronary arteriosclerosis in [place] artery 11/04 Overview (02/18/2017): Coronary artery disease involving [place] coronary artery of [place] heart with other form of angina pectoris Left ventricular dilatation 11/04/2015 Overview (02/18/2017): LVE (left ventricular enlargement) Coronary artery disease invo lving [place] coronary artery of [place] heart with angina pectoris with documented spasm [...] on file Legal 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 Gender Identity Female 05/06/2020 3:45 PM CDT Sexual Orientation Straight 01/31/2020 9: 43 AM CDT Last Filed Vital Signs Vital Sign Reading Time Taken Comments Blood Pressure 128/68 02/08/2025 12:51 PM CDT Pulse 76 02/08/2025 12:51 PM CDT Temperature 36.8 C (98.3 F) 04/02/2020 12:00 PM CDT Respiratory Rate 16 11/10/2021 9:02 AM LOCOMOTIVE CRANE OPERATOR HELPER Oxygen Saturation 95% 02/08/2025 12: 51 PM CDT Inhaled Oxygen Concentration - - Weight 96.9 kg (213 lb 11.2 oz) 025 12:51 PM CDT Height 167.6 cm (5' 6) 02/08/2025 12:5 1 PM CDT Body Mass Index 34.49 02/08/2025 12:51 PM CDT Plan of Treatment Not on file Medical Devices Explanted Type Area Clinical Education Manager Device Identifier Shelf Expiration Date Model / Serial / Lot [employer] [id number] Chris Flexi-Stent 7fr 3cm Small Pigtail Flexible .035in Stent - [id number] Implanted:Qty : 1 on 03/31/2020 by Ricky Jeter MD at [facility] Explanted:Qty : 1 on 04/02/2020 by Ricky Jeter MD at [facility] Stent N/A: Pancreas [employer] 09/13/2024 [id number] / / [id number] Conmed Purnima [id number] [place] Viabil 10mm 8.5fr 6cm 200cm Fully Covered Self Expand Pull - [id number] - [id number] Implanted:Qty : 1 on 03/31/2020 by Ricky Jeter MD at [facility] Explanted:Qty : 1 on 04/02/2020 by Ricky Jeter MD at [facility] Stent N/A: Bile Duct [employer] P[employer]ima 12/20/2022 [id number] / [id number] / Insurance MEDICARE [facility] MEDICARE BLUE CROSS MEDICARE SUPPLEMENT Advance Directives For more information, please contact: [phone] * Full Code (Latest Code Status on File) Date Activated Date Inactivated Comments 03/31/2020 8:47 AM 04/02/2020 5:04 PM Care Teams Maintenance Service Supervisor Relationship Specialty Start Date End Date Janeth Viramontes MD [address] [phone] PCP - General 09/16/11
--- OUTSIDE RECORDS SUMMARY | 2025-05-01 08:47 | XMS_ITS | Clinical Summary ---
Author Organization [facility] [place] [address] [facility] 162 Address [address] [facility] 162 [place] [address] Care Team Providers Care Social Media Executive Name Role Phone Janeth Viramontes MD Primary Care Provider [phone] Allergies Active Allergy Reactions Criticality Noted Date [...] by mouth daily Active cholecalciferol (VITAMIN D-3) 84195 unit capsule Take 1 capsule (10,000 Units [...] mg SL tabletIndication s:Coronary artery disease of [place] artery of [place] heart with stable angina pectoris DISSOLVE ONE [...] (04/01/2020): Added automatically from request for surgery [id number] Palpitations 01/09/2020 Chronic fatigue 01/09/2020 Preoperative cardiovascular examination 07/04/20 19 OWENS (dyspnea on exertion) 04/20/2018 Orthostatic hypotension 10/19/2016 Overview (02/18/2017): Orthostatic hypotension 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 (02/18/2017): Coronary vasospasm Thoracic back pain 12/29/2015 Overview (02/18/2017): Thoracic back pain, unspecified back pain laterality Coronary arteriosclerosis in [place] artery 11/04 Overview (02/18/2017): Coronary artery disease involving [place] coronary artery of [place] heart with other form of angina pectoris Left ventricular dilatation 11/04/2015 Overview (02/18/2017): LVE (left ventricular enlargement) Coronary artery disease invo lving [place] coronary artery of [place] heart with angina pectoris with documented spasm [...] Description 02/08/2025 1:00 PM CDT Office Visit [facility] [address] [place] [address] Christine Mendoza NP Coronary artery disease of [place] artery of [place] heart with stable angina pectoris (Primary Dx); [...] on file 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 Gender Identity Female 05/06/2020 3:45 PM CDT Sexual Orientation Straight 01/31/2020 9: 43 AM CDT Obstetrics History Last Filed Vital Signs Vital Sign Reading Time Taken Comments Blood Pressure 128/68 02/08/2025 12:51 PM CDT Pulse 76 02/08/2025 12:51 PM CDT Temperature 36.8 C (98.3 F) 04/02/2020 12:00 PM CDT Respiratory Rate 16 11/10/2021 9:02 AM MARINE STRUCTURAL DESIGNER Oxygen Saturation 95% 02/08/2025 12: 51 PM [...] history exists Medical Devices Explanted Type Area Dietitian Device Identifier Shelf Expiration Date Model / Serial / Lot [employer] 6571 Chris Flexi-Stent 7fr 3cm Small Pigtail Flexible .035in Stent - [id number] Implanted:Qty : 1 on 03/31/2020 by Ricky Jeter MD at [facility] Explanted:Qty : 1 on 04/02/2020 by Ricky Jeter MD at [facility] Stent N/A: Pancreas [employer] 09/13/2024 [id number] / / [id number] Conmed Purnima [id number] [place] Viabil 10mm 8.5fr 6cm 200cm Fully Covered Self Expand Pull - [id number] - [id number] Implanted:Qty : 1 on 03/31/2020 by Ricky Jeter MD at [facility] Explanted:Qty : 1 on 04/02/2020 by Ricky Jeter MD at [facility] Stent N/A: Bile Duct Conmed Purnima 12/20/2022 [id number] / [id number] / Insurance MEDICARE MEDICARE [facility] MEDICARE BLUE CROSS MEDICARE SUPPLEMENT Advance Directives For more information, please contact: [phone] * Full Code (Latest Code Status on File) Date Activated Date Inactivated Comments 03/31/2020 8:47 AM 04/02/2020 5:04 PM Care Teams Social Media Executive Relationship Specialty Start Date End Date Janeth Viramontes MD [address] [place] [address] [facility] - General 09/16/11
--- OUTSIDE RECORDS SUMMARY | 2025-05-01 08:47 | XMS_ITS | Patient Health Record ---
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
--- OUTSIDE RECORDS SUMMARY | 2025-05-01 08:47 | XMS_ITS | Patient Health Record ---
Author Organization [facility] Address [address] [place], [place] [id number] Care Team Providers Care Icu Nurse Name Role Phone ILSA BUTLER Unavailable [phone] Janeth Viramontes Unavailable Unavailable Allergies Allergen (clinical [...] sodium 0.2 MG Oral Tablet *Reorder from [employer] for eRx and Interaction Alerts* 0 Active Lisinopril 10 MG Oral Tablet ORAL lisinopril 10 MG Oral TabletOriginal Medicationlisinopril 10 MG Oral Tablet *Reorder from [employer] for eRx and Interaction Alerts* 0 Active urea 400 MG/ML Topical Cream CUTANEOUS urea 400 MG/ML Topical CreamOriginal Medicationurea 400 MG/ML Topical Cream *Reorder from [employer] for eRx and Interaction Alerts* 3 Active 12 HR ranolazine 1000 MG Extended Release Oral Tablet [Ranexa] ORAL 12 HR ranolazine 1000 MG Extended Release Oral Tablet [Ranexa]Original [id number] HR ranolazine 1000 MG Extended Release Oral Tablet [Ranexa] *Reorder from [facility] for eRx and Interaction Alerts* 6 Active Famotidine 20 MG Oral Tablet ORAL famotidine 20 MG Oral TabletOriginal Medicationfamotidine 20 MG Oral Tablet *Reorder from [facility] for eRx and Interaction Alerts* 0 Active Medrol Dosepak ORAL Medrol DosepakOr iginal MedicationMedrol Dosepak *Reorder from [facility] for eRx and Interaction Alerts* 3 Active Isosorbide Mononitrate 20 MG Oral Tablet ORAL isosorbide mononitrate 20 MG Oral TabletOriginal Medicationisosorbide mononitrate 20 MG Oral Tablet *Reorder from [facility] for eRx and Interaction Alerts* 0 Active pantoprazole 40 MG Delayed Release Oral Tablet ORAL pantoprazole 40 MG Delayed Release Oral TabletOriginal Medicationpantoprazole 40 MG Delayed Release Oral Tablet *Reorder from [facility] for eRx and Interaction Alerts* 0 Active calcium carbonate 600 MG / cholecalciferol 125 UNT Oral Tablet ORAL calcium carbonate 600 MG / cholecalciferol 125 UNT Oral TabletOriginal Medicationcalcium carbonate 600 MG / cholecalciferol 125 UNT Oral Tablet *Reorder from [facility] for eRx and Interaction Alerts* 6 Active ciclopirox 80 MG/ML Topical Solution ciclopirox 80 MG/ML Topical SolutionOriginal Medicationciclopirox 80 MG/ML Topical Solution *Reorder from [facility] for eRx and Interaction Alerts* 7 Active amlodipine 10 MG Oral Tablet ORAL amlodipine 10 MG Oral TabletOriginal Medicationamlodipine 10 MG Oral Tablet *Reorder from [facility] for eRx and Interaction Alerts* 0 Active aspirin 81 MG Delayed Release Oral Tablet ORAL aspirin 81 MG Delayed Release Oral TabletOriginal Medicationaspirin 81 MG Delayed Release Oral Tablet *Reorder from [facility] for eRx and Interaction Alerts* 6 Active Furosemide 40 MG Oral Tablet ORAL furosemide 40 MG Oral TabletOriginal Medicationfurosemide 40 MG Oral Tablet *Reorder from [facility] for eRx and Interaction Alerts* 0 Active clotrimazole 10 MG/ML Topical Solution CUTANEOUS clotrimazole 10 MG/ML Topical SolutionOriginal Medicationclotrimazole 10 MG/ML Topical Solution *Reorder from [employer] for eRx and Interaction Alerts* 4 Active ipratropium bromide 0.042 MG/ACTUAT Metered Dose Nasal [place] ipratropium bromide 0.042 MG/ACTUAT Metered Dose Nasal SprayOriginal Medicationipratropium bromide 0.042 MG/ACTUAT Metered Dose Nasal [place] *Reorder from [employer] for eRx and Interaction Alerts* 0 Active Immunizations Vaccine Route Administration Date Status Comme nts Influenza, high dose seasonal Unknown 09/09/2023 Admini stered Encounters Encounter Location Date Provider Diagnosis [facility] [address] [place] [id number] 06/25/2024 LISA SNOOK Tinea unguium B35.1 ; Pain in right foot M79.671 ; Pain in left foot M79.672 ; Atherosclerosis of [place] arteries of extremities with intermittent claudication, bilateral legs I70.213 and Acquired keratosis [keratoderma] palmaris et plantaris L85.1 [facility] [address] [place] [id number] 09/17/2024 LISA SNOOK Tinea unguium B35.1 ; Pain in right toe(s) M79.674 ; Pain in left toe(s) M79.675 and Atherosclerosis of [place] arteries of extremities with intermittent claudication, bilateral legs I70.213 [facility] [address] [place] [id number] 12/17/2024 LISA SNOOK Tinea unguium B35.1 ; Pain in right foot M79.671 ; Pain in left foot M79.672 ; Atherosclerosis of [place] arteries of extremities with intermittent claudication, bilateral legs I70.213 and Acquired keratosis [keratoderma] palmaris et plantaris L85.1 [facility] [address] [place] [address] [id number] 03/18/2025 LISA SNOOK Tinea unguium B35.1 ; Pain in right foot M79.671 ; Pain in left foot M79.672 ; Atherosclerosis of [place] arteries of extremities with intermittent claudication, [...] foot (ICD-10 - M79.672) 06/25/2024 Atherosclerosis of [place] arteries of extremities with intermittent claudication, bilateral legs (ICD-10 - I70.213) 09/17/2024 Atherosclerosis of [place] arteries of extremities with intermittent claudication, bilateral legs (ICD-10 - I70.213) 12/17/2024 Atherosclerosis of [place] arteries of extremities with intermittent claudication, bilateral legs (ICD-10 - I70.213) 03/18/2025 Atherosclerosis of [place] arteries of extremities with intermittent claudication, [...] Appt Details Provider Name:LISA BUTLER, 01:00:00 PM, [address], [facility], [place], [place], [id number], Insurance Providers Payer Name Payer Address Payer Phone Subscriber Number Group Number Insured Name Patient Relationship to Insured Coverage Start Date Coverage End Date Medicare Part B [place] [address] [place] [address] [id number] FREDDIE MARTÍNEZ Self - patient is the insured [facility] ([facility]) ATTN CLAIMS [address] [place] [address] [id number] FREDDIE MARTÍNEZ Self - patient is the insured
[2025-05-01] MEDS: ZOLEDRONIC ACID 5 MG/100 ML 100 ML 400 MG IVPB (09:08)
== END 2025-05-01 09:30 | disposition home or self-care (01) ==
PROVIDERS: PCP Internal Medicine; Visit Provider Internal Medicine
DX: M81.0 Age-related osteoporosis without current pathological fracture (principal)
CPT/HCPCS: 96365; 96374; J3489

== ENCOUNTER 2025-05-13 08:37 | Outpatient (CLI) | payer MEDICARE, SELFPAY ==
--- NOTE | ~2025-05-13 | CT_ITS ---
CT of the Abdomen and Pelvis: Indication: Chronic nausea Technique: 2.5 mm axial scans were obtained through the abdomen and pelvis following intravenous adm inistration of 100 cc of Omnipaque 350. Dose reduction technique was used on this scan by utilizing a utomated exposure control and iterative reconstruction technique. The dose-length product (DLP) was 8 55.19 mGy-cm. Findings: Scans through the lung bases are unremarkable. Large hiatal hernia present. The liver, spleen, pancreas, adrenals and kidneys are within normal limits. Cholecystectomy clips are present. There are atherosclerotic calcifications of the aorta. No lymphadenopathy. No bowel obstruction or bowel wall thickening. There is extensive colonic diverticulosis. Images through the pelvis were performed. Urinary bladder unremarkable. No pelvic mass. No ascites. There is moderate to advanced degenerative change of the lumbar spine with posterior fusion from L4 t o L5. Impression: Large hiatal hernia. Reviewed, dictated and finalized at [facility]. Impression: Large hiatal hernia.
[2025-05-13 09:13] LABS: Alanine Aminotransferase 36 U/L (6-35); Alkaline Phosphatase 80 U/L (38-126); Amylase 61 U/L (30-110); Anion Gap 2 mmol/L (4-12); Aspartate Amino Transferase 31 U/L (14-36); Bilirubin,Total 0.3 mg/dL (0.2-1.3); Blood Urea Nitrogen 23 mg/dL (7-17); Calcium 8.5 mg/dL (8.4-10.2); Carbon Dioxide 34 mmol/L (22-30); Chloride 92 mmol/L (98-107); Estimated Glomerular Filt Rate 30; Glucose 128 mg/dL (65-110); Lipase 63 U/L (23-300); Osmolality Calculated 271 mOsm/kg (285-295); Potassium 3.8 mmol/L (3.4-5.0); Sodium 128 mmol/L (137-145)
== END 2025-05-13 08:38 | disposition home or self-care (01) ==
LOC: CHSIMG 08:39
PROVIDERS: PCP Internal Medicine; Visit Provider Internal Medicine
DX: E87.1 Hypo-osmolality and hyponatremia (principal); R11.0 Nausea; K44.9 Diaphragmatic hernia without obstruction or gangrene
CPT/HCPCS: 36415; 74177; 80053; 82150; 83690; Q9967

== ENCOUNTER 2025-05-15 09:56 | Outpatient (CLI) | payer MEDICARE, SELFPAY ==
[2025-05-15 10:19] LABS: Hematocrit 37.3 % (35.0-42.0); Hemoglobin 12.1 g/dL (11.7-13.8); Mean Corpuscular HGB Conc 32.4 g/dL (32-36); Mean Corpuscular Hemoglobin 31.7 pg (27.0-31.0); Mean Corpuscular Volume 97.6 fL (78.0-102.0); Platelet Count Result 328 K/mm3 (150-420); Red Blood Count 3.82 M/mm3 (4.20-5.40); White Blood Count 7.0 K/mm3 (4.8-10.8)
--- OUTSIDE RECORDS SUMMARY | 2025-05-15 10:20 | XMS_ITS | Referral Summary ---
Author Organization [facility] [place] [address] [facility] 162 Address [address] [facility] 162 [place] [address] Care Team Providers Care Vp & General Counsel Name Role Phone Janeth Viramontes MD Primary [...] by mouth daily Active cholecalciferol (VITAMIN D-3) 34751 unit capsule Take 1 capsule (10,000 Units [...] mg SL tabletIndication s:Coronary artery disease of [place] artery of [place] heart with stable angina pectoris DISSOLVE ONE [...] (04/01/2020): Added automatically from request for surgery [id number] Palpitations 01/09/2020 Chronic fatigue 01/09/2020 Preoperative cardiovascular examination 07/04/20 19 OWENS (dyspnea on exertion) 04/20/2018 Orthostatic hypotension 10/19/2016 Overview (02/18/2017): Orthostatic hypotension 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 (02/18/2017): Coronary vasospasm Thoracic back pain 12/29/2015 Overview (02/18/2017): Thoracic back pain, unspecified back pain laterality Coronary arteriosclerosis in [place] artery 11/04 Overview (02/18/2017): Coronary artery disease involving [place] coronary artery of [place] heart with other form of angina pectoris Left ventricular dilatation 11/04/2015 Overview (02/18/2017): LVE (left ventricular enlargement) Coronary artery disease invo lving [place] coronary artery of [place] heart with angina pectoris with documented spasm [...] on file Legal Sex Female 3:37 PM INDEPENDENT CONSULTANT Gender Identity Female 05/06/2020 3:45 PM CDT Sexual Orientation Straight 01/31/2020 9: 43 AM CDT Last Filed Vital Signs Vital Sign Reading Time Taken Comments Blood Pressure 128/68 02/08/2025 12:51 PM CDT Pulse 76 02/08/2025 12:51 PM CDT Temperature 36.8 C (98.3 F) 04/02/2020 12:00 PM CDT Respiratory Rate 16 11/10/2021 9:02 AM INDEPENDENT CONSULTANT Oxygen Saturation 95% 02/08/2025 12: 51 PM CDT Inhaled Oxygen Concentration - - Weight 96.9 kg (213 lb 11.2 oz) 025 12:51 PM CDT Height 167.6 cm (5' 6) 02/08/2025 12:5 1 PM CDT Body Mass Index 34.49 02/08/2025 12:51 PM CDT Plan of Treatment Not on file Medical Devices Explanted Type Area Nursing Attendant Device Identifier Shelf Expiration Date Model / Serial / Lot [employer] 6571 Chris Flexi-Stent 7fr 3cm Small Pigtail Flexible .035in Stent - [id number] Implanted:Qty : 1 on 03/31/2020 by Ricky Jeter MD at [facility] Explanted:Qty : 1 on 04/02/2020 by Ricky Jeter MD at [facility] Stent N/A: Pancreas [employer] 09/13/2024 [id number] / / [id number] Conmed Purnima [id number] [place] Viabil 10mm 8.5fr 6cm 200cm Fully Covered Self Expand Pull - [id number] - [id number] Implanted:Qty : 1 on 03/31/2020 by Ricky Jeter MD at [facility] Explanted:Qty : 1 on 04/02/2020 by Ricky Jeter MD at [facility] Stent N/A: Bile Duct Conmed Purnima 12/20/2022 [id number] / [id number] / Insurance MEDICARE MEDICARE [facility] MEDICARE BLUE CROSS MEDICARE SUPPLEMENT Advance Directives For more information, please contact: [phone] * Full Code (Latest Code Status on File) Date Activated Date Inactivated Comments 03/31/2020 8:47 AM 04/02/2020 5:04 PM Care Teams Vp & General Counsel Relationship Specialty Start Date End Date Janeth Viramontes MD [address] [id number] [facility] - General 09/16/11
--- OUTSIDE RECORDS SUMMARY | 2025-05-15 10:20 | XMS_ITS | Patient Health Record ---
Author Organization [facility] Address [address] [place], [place] [id number] Care Team Providers Care It Engineer Name Role Phone LISA BUTLER Unavailable [phone] Janeth Viramontes Unavailable Unavailable Allergies Allergen (clinical [...] sodium 0.2 MG Oral Tablet *Reorder from [employer] for eRx and Interaction Alerts* 0 Active Lisinopril 10 MG Oral Tablet ORAL lisinopril 10 MG Oral TabletOriginal Medicationlisinopril 10 MG Oral Tablet *Reorder from [employer] for eRx and Interaction Alerts* 0 Active urea 400 MG/ML Topical Cream CUTANEOUS urea 400 MG/ML Topical CreamOriginal Medicationurea 400 MG/ML Topical Cream *Reorder from [employer] for eRx and Interaction Alerts* 3 Active 12 HR ranolazine 1000 MG Extended Release Oral Tablet [Ranexa] ORAL 12 HR ranolazine 1000 MG Extended Release Oral Tablet [Ranexa]Original Icigptuxsa09 HR ranolazine 1000 MG Extended Release Oral Tablet [Ranexa] *Reorder from [facility] for eRx and Interaction Alerts* 6 Active Famotidine 20 MG Oral Tablet ORAL famotidine 20 MG Oral TabletOriginal Medicationfamotidine 20 MG Oral Tablet *Reorder from [facility] for eRx and Interaction Alerts* 0 Active Medrol Dosepak ORAL Medrol DosepakOr iginal MedicationMedrol Dosepak *Reorder from [facility] for eRx and Interaction Alerts* 3 Active Isosorbide Mononitrate 20 MG Oral Tablet ORAL isosorbide mononitrate 20 MG Oral TabletOriginal Medicationisosorbide mononitrate 20 MG Oral Tablet *Reorder from [facility] for eRx and Interaction Alerts* 0 Active pantoprazole 40 MG Delayed Release Oral Tablet ORAL pantoprazole 40 MG Delayed Release Oral TabletOriginal Medicationpantoprazole 40 MG Delayed Release Oral Tablet *Reorder from [facility] for eRx and Interaction Alerts* 0 Active calcium carbonate 600 MG / cholecalciferol 125 UNT Oral Tablet ORAL calcium carbonate 600 MG / cholecalciferol 125 UNT Oral TabletOriginal Medicationcalcium carbonate 600 MG / cholecalciferol 125 UNT Oral Tablet *Reorder from [facility] for eRx and Interaction Alerts* 6 Active ciclopirox 80 MG/ML Topical Solution ciclopirox 80 MG/ML Topical SolutionOriginal Medicationciclopirox 80 MG/ML Topical Solution *Reorder from [facility] for eRx and Interaction Alerts* 7 Active amlodipine 10 MG Oral Tablet ORAL amlodipine 10 MG Oral TabletOriginal Medicationamlodipine 10 MG Oral Tablet *Reorder from [facility] for eRx and Interaction Alerts* 0 Active aspirin 81 MG Delayed Release Oral Tablet ORAL aspirin 81 MG Delayed Release Oral TabletOriginal Medicationaspirin 81 MG Delayed Release Oral Tablet *Reorder from [facility] for eRx and Interaction Alerts* 6 Active Furosemide 40 MG Oral Tablet ORAL furosemide 40 MG Oral TabletOriginal Medicationfurosemide 40 MG Oral Tablet *Reorder from [facility] for eRx and Interaction Alerts* 0 Active clotrimazole 10 MG/ML Topical Solution CUTANEOUS clotrimazole 10 MG/ML Topical SolutionOriginal Medicationclotrimazole 10 MG/ML Topical Solution *Reorder from [employer] for eRx and Interaction Alerts* 4 Active ipratropium bromide 0.042 MG/ACTUAT Metered Dose Nasal [place] ipratropium bromide 0.042 MG/ACTUAT Metered Dose Nasal SprayOriginal Medicationipratropium bromide 0.042 MG/ACTUAT Metered Dose Nasal [place] *Reorder from [employer] for eRx and Interaction Alerts* 0 Active Immunizations Vaccine Route Administration Date Status Comme nts Influenza, high dose seasonal Unknown 09/09/2023 Admini stered Encounters Encounter Location Date Provider Diagnosis [facility] [address] [place] [id number] 06/25/2024 LISA SNOOK Tinea unguium B35.1 ; Pain in right foot M79.671 ; Pain in left foot M79.672 ; Atherosclerosis of [place] arteries of extremities with intermittent claudication, bilateral legs I70.213 and Acquired keratosis [keratoderma] palmaris et plantaris L85.1 [facility] [address] [place] [id number] 09/17/2024 LISA SNOOK Tinea unguium B35.1 ; Pain in right toe(s) M79.674 ; Pain in left toe(s) M79.675 and Atherosclerosis of [place] arteries of extremities with intermittent claudication, bilateral legs I70.213 [facility] [address] [place] [id number] 12/17/2024 LISA SNOOK Tinea unguium B35.1 ; Pain in right foot M79.671 ; Pain in left foot M79.672 ; Atherosclerosis of [place] arteries of extremities with intermittent claudication, bilateral legs I70.213 and Acquired keratosis [keratoderma] palmaris et plantaris L85.1 [facility] [address] [place] [id number] 03/18/2025 LISA SNOOK Tinea unguium B35.1 ; Pain in right foot M79.671 ; Pain in left foot M79.672 ; Atherosclerosis of [place] arteries of extremities with intermittent claudication, bilateral [...] foot (ICD-10 - M79.672) 06/25/2024 Atherosclerosis of [place] arteries of extremities with intermittent claudication, bilateral legs (ICD-10 - I70.213) 09/17/2024 Atherosclerosis of [place] arteries of extremities with intermittent claudication, bilateral legs (ICD-10 - I70.213) 12/17/2024 Atherosclerosis of [place] arteries of extremities with intermittent claudication, bilateral legs (ICD-10 - I70.213) 03/18/2025 Atherosclerosis of [place] arteries of extremities with intermittent claudication, bilateral [...] Treatment Next Appt Details Provider Name:LISA BUTLER, 09:50:00 AM, [address], [facility], [place], [place], [id number], Insurance Providers Payer Name Payer Address Payer Phone Subscriber Number Group Number Insured Name Patient Relationship to Insured Coverage Start Date Coverage End Date Medicare Part B [place] [address] [place] [address] [id number] FREDDIE MARTÍNEZ Self - patient is the insured [facility] ([facility]) ATTN CLAIMS [address] [place] [address] [id number] FREDDIE MARTÍNEZ Self - patient is the insured
--- OUTSIDE RECORDS SUMMARY | 2025-05-15 10:20 | XMS_ITS | Data Portability ---
Author Organization [place] - [facility] [employer], Main Office Address [address] [place] [address] Care Team Providers Care Malter Operator Name Role Phone RUBENS MONTOYA Primary [...] more than half the time spent in dxrh-ya-poed care. Not available 03/16/2023 10:23:27 04/07/2023 04/07/2023 [...] recommended that she take Citracal +D to Bureau tablets a day in the time being. [...] than half of this time spent in nzdu-mu-grcs care. Not available 04/07/2023 19:53:25 04/22/2023 04/22/2023 [...] patient more than half of this in iejq-qc-qtgb conversation Not available 04/22/2023 13:40:48 05/11/2023 05/11/2023 [...] patient more than half of this in vges-zc-oduq conversation Not available 05/11/2023 10:09:34 06/03/2023 06/03/2023 [...] patient more than half of this in dasm-is-ebcm conversation Not available 06/03/2023 11:06:01 Plan of Treatment Reminders Order Date Submit Date Provider Last Modified By Organization Details Last Modified Time Details Appointments None recorded. Lab None recorded. Referral physical therapist referral - see attached order- please schedule pt 2022 023 [email or web address] [facility], [address] [place], [address], 3 14:21:10 Procedures injection/a spiration joint/bursa (PROC) - in office procedure, administere d by provider 2022 023 [email or web address] In-Office Order, Internal Use Only DO Not Attach Compendium DO Not Attach Compendium, Do Not Delete/merge, [address] 3 09:57:30 Surgeries None recorded. Imaging XR, shoulder 2022 023 [facility] [place], [address], [place], [address], 3 11:30:58 XR, shoulder 2022 023 [facility] [place], [address], [place], [address], 3 13:10:33 XR, elbow 2022 023 [email or web address] [facility] [place], [address], [place], [address], 3 13:52:51 XR, shoulder 2022 023 [facility] [place], [address], [place], [address], 3 12:30:32 XR, wrist 2022 023 [email or web address] [facility] [place], [address], [place], [address], 3 13:52:51 Medication Orders Kenalog 10 mg/mL suspension for injection [email or web address] [facility], [address] [place], [address], 13:10:33 ropivacaine (PF) 5 mg/mL (0.5 %) injection solution 2022 023 [facility], [address] [place], [address], 13:10:33 Patient TargetsNo targets recorded. Patient InstructionsNo [...] No observ ation record ed. [facility] [place] [address], [place], [address], 04/22/2023 13:39:16 04/22/20 XR, wrist No observ ation record ed. [facility] [place] [address], [place], [address], 04/22/2023 13:38:39 04/22/20 23 XR, elbow No observ ation record ed. [facility] [place] [address], [address], 04/22/2023 13:38:16 05/11/20 23 XR, shoul janet No observ ation record ed. [facility] [place] [address], [address], 05/11/2023 10:06:48 06/03/20 23 XR, shoul janet No observ ation record ed. [facility] [place] [address], [address], 06/03/2023 11:03:45 Result Notes None recorded. Problems Name Problem SNOMED Code Status Onset Date Resolution Date Notes Provider Name and Address Organization Details Recorded Time History of total knee arthroplas ty 1722586621803 Active 2021 Not Available [facility] 3 00:55:20 Pain of left shoulder joint 4977878433253 9109 Active 2021 Not Available [facility] 3 00:55:20 Stable angina 881481844 Active 2018 Not Available [facility] 3 00:55:20 Enthesopat hy of hip region 77579109 Active Not Available [facility] 3 00:55:20 Osteoarthr itis of left knee joint 6947408466922 09 Active 2018 Not Available [facility] 3 00:55:20 Osteoarthr itis 507921535 Active Not Available [facility] 3 00:55:20 Pain of left hip joint 8268380911034 00 Active 2022 FREDERICK Mobely, [facility] [employer] [facility] 3 10:18:52 Pain of right shoulder joint 6994915417633 9100 Active 2022 FREDERICK Mobley, [facility] 3 10:19:32 Partial thickness rotator cuff tear 200990756 Active 2022 FREDERICK Mobley null, [facility] 3 09:54:19 Vitamin D deficiency 32221330 Active 2022 Nava Jose, SENIOR NETWORK ARCHITECT null, [facility] 3 13:32:39 Closed fracture of upper end of humerus 25449621 Active 2022 Karlie Randall RMStephanie null, [facility] 3 12:06:45 Pain of left elbow joint 8534222559590 9104 Active 2022 FREDERICK Mobley null, [facility] 3 12:07:11 Pain of left wrist 6643943407412 02 Active 2022 FREDERICK Mobley, [facility] 3 12:53:17 Problem Notes None recorded. Medical Equipment None Reported. Allergies Allergen ID Allergen Name Allergen Category Reaction Reaction Severity Criticality Documentation Date Start Date Code Code System Note Provider Name and Address Organization Details Recorded Time 1368 latex environme nt,medica tion rash Not available Not available 01/12/2023 30461 91 RxNorm BLIST ERS Not Available [facility] 3 01:02:40 1369 bacitraci n medicatio n Not available Not available Not available 01/12/20232018 1291 RxNorm cause d infec teed 2nd degre e no rash or sob Not Available [facility] 3 01:02:40 Medications Name Sig Start Date [...] suspension for injection in office 2022 active [facility]: 0003- 0494- 20 Not Available Not [...] administe red by the provider 06/12 completed [facility]: 0409- 4276- 17 Not Available Not [...] %) injection solution in office 2022 active [facility] 13240 -064- 01 Not Available Not Available Not Available Eliquis 2.5 mg tablet 09/05 completed Not Available Not Available Not Available erVолег n AREDS-2 09/05 completed Not Available Not Available Not Available [employer]axNOW COVID-19 Ag Self Test kit Use as Directed on the Package 02/03 completed Not Available Not Available Not Available Vitals Date Recorded Body height Provider Name an d Address Organization Details Last Updated DateTime 03/16/2023 162.56 cm Karlie Randall [facility] [employer] [facility] 03/16/2023 09:52:09 Date Recorded Body height Provider Name an d Address Organization Details Last Updated DateTime 04/07/2023 162.56 cm Karlie Randall [facility] [employer] [facility] [employer] [facility] 04/07/2023 12:22:07 Date Recorded Body height Provider Name an d Address Organization Details Last Updated DateTime 04/22/2023 162.56 cm Karlie Randall [facility] [employer] [facility] [employer] [facility] 04/22/2023 12:04:48 Date Recorded Body height Provider Name an d Address Organization Details Last Updated DateTime 05/11/2023 162.56 cm Karlie Randall [facility] [employer] [facility] 05/11/2023 09:04:41 Date Recorded Body height Provider Name an d Address Organization Details Last Updated DateTime 06/03/2023 162.56 cm Karlie Randall [facility] [employer] [facility] [employer] [facility] 06/03/2023 10:23:22 Social History None recorded. Functional Status Question Answer Note LastModified by Organizat ion Details LastModified Time What is your level of alcohol consumption? Occasional [id number] Information not available 01/12/2023 Mental Status None recorded. Family History Relationship Description Onset Age of this Age Resolved Age Notes LastModified by Organization Details LastModified Time Father Heart disease [id number] Not available 01/12/2023 00:49:06 Father Hypertensive disorder [email or web address].320 [id number] Not available 01/12/2023 00:49:06 Mother Heart disease [email or web address].037 [id number] Not available 01/12/2023 00:49:06 Mother Hypertensive disorder [id number] Not available 01/12/2023 00:49:06 Brother Heart disease [id number].660 [id number] Not available 01/12/2023 00:49:06 Medical History Condition [...] HAVE YOU BEEN HOSPITALIZED OR SEEN IN [facility] IN THE PAST YEAR ? [...] SNOMED-CT Code Diagnosis ICD10 Code Diagnosis Note [id number] Aydin Pritchard MD [facility] [place] [address] [place] [address] 01/12/2021 00:00:00 01/12/2021 14:46:55 [id number] MD SALO [facility] [place] [address] [place] [address] 01/26/2021 00:00:00 01/26/2021 15:38:38 [id number] MD CHANDU [facility] [place] [address] [place] [address] 04/03/2021 00:00:00 04/03/2021 09:59:55 [id number] MD SALO [facility] [place] [address] [place] [address] 05/01/2021 00:00:00 05/01/2021 09:14:43 [id number] MD SALO [facility] [address] [place] [address] 06/04/2021 00:00:00 06/04/2021 11:10:45 [id number] MD SALO [facility] [place] [address] [place] [address] 06/12/2021 00:00:00 06/13/2021 12:11:52 [id number] MD CHANDU [facility] [place] [address] [place] [address] 07/10/2021 00:00:00 07/10/2021 09:44:19 [id number] Aydin Pritchard MD [facility] [place] [address] [place] [address] 07/24/2021 00:00:00 07/24/2021 12:01:16 [id number] MD SALO [facility] [place] [address] [place] [address] 01/01/2022 00:00:00 01/01/2022 10:41:38 [id number] MD CHANDU [facility] [place] [address] [place] [address] 04/16/2022 00:00:00 04/16/2022 09:57:05 [id number] ROSALIA Owens [facility] [place] [address] [place] [address] 04/30/2022 00:00:00 04/30/2022 09:18:47 [id number] Aydin Pritchard MD [facility] [address] 02/03/2023 09:59:49 02/03/2023 11:15:08 Pain of right shoulder joint 1049087222 7743911 M25.511 [id number] Aydin Pritchard MD [facility] [place] [address] [place] [address] 03/16/2023 09:46:32 03/16/2023 10:51:04 Partial thickness rotator cuff tear 114933041 M75.101 [id number] Aydin Pritchard MD [facility] [address] 04/07/2023 12:05:17 04/08/2023 09:46:52 Pain of left shoulder joint 0233913948 7020477 M25.512 [id number] Aydin Pritchard MD [facility] [place] [address] [place] [address] 04/22/2023 11:58:33 04/22/2023 13:52:51 Closed fracture of upper end of humerus 18977933 S42.D Pain of le ft elbow joint 4482980206 5039891 M25.522 Pain of left wrist 09958 40436 16669 M25.532 [id number] Aydin Pritchard MD [facility] [place] [address] [place] [address] 05/11/2023 09:00:00 05/11/2023 10:14:12 Closed fracture of upper end of humerus 21161597 S42.202D Pain of ri ght shoulder joint 9454259954 9818451 M25.511 [id number] Aydin Pritchard MD [facility] [place] [address] [place] [address] 06/03/2023 10:10:44 06/03/2023 11:23:28 Closed fracture of upper end of humerus 88807247 S4D Health Concerns Section Related Observation LastModified by Organization Detai ls LastModified Time None Recorded Concern Status LastModified by Organization Details LastModified Time None Recorded Advance Directives Directive None Recorded Payers Insurance Date Sequence Insurance Name Policy Number Policy Ba Covered Member ID Ba Member ID Guarantor Name 05/31/2023 1 [place] Betzy Palomino Reddo [id number] Betzy Palomino Reddo 06/09/2023 2 [place] [id number] Betzy Palomino Reddo [id number] Betzy Palomino Reddo 05/31/2023 [employer] - [employer] ASSIGNED (MEDICARE [facility] B) Betzy Palomino Reddo [id number] Betzy Palomino Reddo Notes Date Note [...] with supraspinatus insertional disease. Aydin Pritchard MD [address] [place] [address], [place] [address], [place], [address], [place] [facility] [place] [employer] [facility] 04/07/2023 19:53:42 OBGyn Episode No OBEpisode recorded.
--- OUTSIDE RECORDS SUMMARY | 2025-05-15 10:20 | XMS_ITS | Patient Health Record ---
Author Organization [facility] Address [address] [place] [address] Care Team Providers Care Cut Plug Packer Name Role Phone Wander METCALF, Janeth Primary [...] morning Orally Once a day Active Ipratropium [place] HFA 17 MCG/ACT 2 puffs Inhalation Four [...] W/U Status Risk Notes Problem Functional dyspepsia (8426168) Functional dyspepsia (K30) Active confirmed Problem Spasm [...] End Date Medicare-M O Medicare [address] [address] [place], [place] [id number] Betzy Juarez Self - patient is the insured [place] [address] [place], [place] [id number] Betzy Juarez Self - patient is [...]
--- OUTSIDE RECORDS SUMMARY | 2025-05-15 10:20 | XMS_ITS | Clinical Summary ---
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 DISSOLVE ONE [...] (04/01/2020): Added automatically from request for surgery [id number] Palpitations 01/09/2020 Chronic fatigue 01/09/2020 Preoperative cardiovascular examination 07/04/20 19 OWENS (dyspnea on exertion) 04/20/2018 Orthostatic hypotension 10/19/2016 Overview (02/18/2017): Orthostatic hypotension 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 (02/18/2017): Coronary vasospasm Thoracic back pain 12/29/2015 Overview (02/18/2017): Thoracic back pain, unspecified back pain laterality Coronary arteriosclerosis in alutiiq artery 11/04 Overview (02/18/2017): Coronary artery disease involving alutiiq coronary artery of alutiiq heart with other form of angina pectoris Left ventricular dilatation 11/04/2015 Overview (02/18/2017): LVE (left ventricular enlargement) Coronary artery disease invo lving alutiiq coronary artery of alutiiq heart with angina pectoris with documented spasm 04/16/2014 Overview (02/18/2017): CAD (coronary artery disease) Angina pectoris 04/16/2014 Overview (02/18/2017): Cardiac microvascular disease Chest pain 04/16/2014 Overview (02/18/2017): Chest pain Hypertension 04/16/2014 Overview (02/18/2017): HTN (hypertension), benign Mass of breast 11/17/2012 GERD (gastroesophageal reflux disease) Resolved Problems Problem Noted Date Diagnosed Date Resolved Date Dyslipidemia 04/16/2014 11/10/2021 Overview (02/18/2017): Dyslipidemia Surgical History Surgery Date Site/Laterality Comments APPENDECTOMY [...] on file Legal 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 Gender Identity Female 05/06/2020 3:45 PM CDT Sexual Orientation Straight 01/31/2020 9: 43 AM CDT Obstetrics History Last Filed Vital Signs Vital Sign Reading Time Taken Comments Blood Pressure 128/68 02/08/2025 12:51 PM CDT Pulse 76 02/08/2025 12:51 PM CDT Temperature 36.8 C (98.3 F) 04/02/2020 12:00 PM CDT Respiratory Rate 16 11/10/2021 9:02 AM KITCHEN PORTER Oxygen Saturation 95% 02/08/2025 12: 51 PM [...] history exists Medical Devices Explanted Type Area Marketing Strategy Manager Device Identifier Shelf Expiration Date Model / Serial / Lot [employer] 6571 Chris Flexi-Stent 7fr 3cm Small Pigtail Flexible .035in Stent - [id number] Implanted:Qty : 1 on 03/31/2020 by Ricky Jeter MD at [facility] Explanted:Qty : 1 on 04/02/2020 by Ricky Jeter MD at [facility] Stent N/A: Pancreas [employer] 09/13/2024 6571 / / [id number] Conmed Purnima [id number] [place] Viabil 10mm 8.5fr 6cm 200cm Fully Covered Self Expand Pull - [id number] - [id number] Implanted:Qty : 1 on 03/31/2020 by Ricky Jeter MD at [facility] Explanted:Qty : 1 on 04/02/2020 by Ricky Jeter MD at [facility] Stent N/A: Bile Duct [employer] Purnima 12/20/2022 [id number] / [id number] / Insurance MEDICARE MEDICARE [facility] MEDICARE [facility] MEDICARE SUPPLEMENT Advance Directives For more information, please contact: [phone] * Full Code (Latest Code Status on File) Date Activated Date Inactivated Comments 03/31/2020 8:47 AM 04/02/2020 5:04 PM Care Teams Inbound Sales Manager Relationship Specialty Start Date End Date Janeth Viramontes MD [address] [place] [address] PCP - General 09/16/11
[2025-05-15 10:21] LABS: Add Urine Microscopic? NO; Appearance Urine Clear (Clear); Glucose Urine UA Negative (Negative); Leukocyte Esterase Ur Negative (Negative); Nitrate Urine Negative (Negative); Specific Grav Ur <= 1.005 (1.010-1.020)
[2025-05-15 10:38] LABS: Alanine Aminotransferase 28 U/L (6-35); Albumin Level 3.8 g/dL (3.5-5.1); Alkaline Phosphatase 78 U/L (38-126); Anion Gap 3 mmol/L (4-12); Aspartate Amino Transferase 29 U/L (14-36); Bilirubin,Total 0.4 mg/dL (0.2-1.3); Blood Urea Nitrogen 23 mg/dL (7-17); Calcium 9.1 mg/dL (8.4-10.2); Carbon Dioxide 33 mmol/L (22-30); Chloride 96 mmol/L (98-107); Estimated Glomerular Filt Rate 35; Glucose 102 mg/dL (65-110); Osmolality Calculated 277 mOsm/kg (285-295); Potassium 4.7 mmol/L (3.4-5.0); Sodium 132 mmol/L (137-145); Total Protein 6.3 g/dL (6.3-8.2)
== END 2025-05-15 09:57 | disposition home or self-care (01) ==
LOC: CHSLAB 09:59
PROVIDERS: PCP Internal Medicine; Visit Provider Internal Medicine
DX: R11.0 Nausea (principal); I10 Essential (primary) hypertension
CPT/HCPCS: 36415; 80053; 81003; 85027

== ENCOUNTER 2025-05-20 08:38 | Outpatient (CLI) | payer MEDICARE, SELFPAY ==
--- OUTSIDE RECORDS SUMMARY | 2025-05-20 08:50 | XMS_ITS | Patient Health Record ---
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
--- OUTSIDE RECORDS SUMMARY | 2025-05-20 08:50 | XMS_ITS | Clinical Summary ---
Author Organization [facility] [address] [facility] [address] Address [address] [facility] [address] [place] [address] Care Team Providers Care Auto Mechanic Apprentice Name Role Phone Janeth Viramontes MD Primary [...] by mouth daily Active cholecalciferol (VITAMIN D-3) 67056 unit capsule Take 1 capsule (10,000 Units [...] mg SL tabletIndication s:Coronary artery disease of osage artery of osage heart with stable angina pectoris DISSOLVE ONE [...] (04/01/2020): Added automatically from request for surgery [id number] Palpitations 01/09/2020 Chronic fatigue 01/09/2020 Preoperative cardiovascular examination 07/04/20 19 OWENS (dyspnea on exertion) 04/20/2018 Orthostatic hypotension 10/19/2016 Overview (02/18/2017): Orthostatic hypotension 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 (02/18/2017): Coronary vasospasm Thoracic back pain 12/29/2015 Overview (02/18/2017): Thoracic back pain, unspecified back pain laterality Coronary arteriosclerosis in osage artery 11/04 Overview (02/18/2017): Coronary artery disease involving osage coronary artery of osage heart with other form of angina pectoris Left ventricular dilatation 11/04/2015 Overview (02/18/2017): LVE (left ventricular enlargement) Coronary artery disease invo lving osage coronary artery of osage heart with angina pectoris with documented spasm [...] Underwood Relation Name Status Comments Brother Ji nUderwood Father Taye Underwood (Age 88) Mother Aydee [...] on file 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 Gender Identity Female 05/06/2020 3:45 PM CDT Sexual Orientation Straight 01/31/2020 9: 43 AM CDT Obstetrics History Last Filed Vital Signs Vital Sign Reading Time Taken Comments Blood Pressure 128/68 02/08/2025 12:51 PM CDT Pulse 76 02/08/2025 12:51 PM CDT Temperature 36.8 C (98.3 F) 04/02/2020 12:00 PM CDT Respiratory Rate 16 11/10/2021 9:02 AM MACHINE SETTER AND REPAIRER Oxygen Saturation 95% 02/08/2025 12: 51 PM [...] history exists Medical Devices Explanted Type Area Burnisher Device Identifier Shelf Expiration Date Model / Serial / Lot [employer] 6571 Chris Flexi-Stent 7fr 3cm Small Pigtail Flexible .035in Stent - [id number] Implanted:Qty : 1 on 03/31/2020 by Ricky Jeter MD at [facility] Explanted:Qty : 1 on 04/02/2020 by Ricky Jeter MD at [facility] Stent N/A: Pancreas [employer] 09/13/2024 6571 / / [id number] Conmed Purnima [id number] [place] Viabil 10mm 8.5fr 6cm 200cm Fully Covered Self Expand Pull - [id number] - [id number] Implanted:Qty : 1 on 03/31/2020 by Ricky Jeter MD at [facility] Explanted:Qty : 1 on 04/02/2020 by Ricky Jeter MD at [facility] Stent N/A: Bile Duct [employer] Purnima 12/20/2022 [id number] / [id number] / Insurance MEDICARE MEDICARE [facility] MEDICARE [facility] MEDICARE SUPPLEMENT Advance Directives For more information, please contact: [phone] * Full Code (Latest Code Status on File) Date Activated Date Inactivated Comments 03/31/2020 8:47 AM 04/02/2020 5:04 PM Care Teams Auto Mechanic Apprentice Relationship Specialty Start Date End Date Janeth Viramontes MD [address] [place] [address] PCP - General 09/16/11
--- OUTSIDE RECORDS SUMMARY | 2025-05-20 08:50 | XMS_ITS | Data Portability ---
Author Organization [place] [facility], Main Office Address [address] [place] [address] Care Team Providers Care Robotics Systems Engineer Name Role Phone RUBENS MONTOYA Primary Care Provider [phone] RUBENS MONTOYA Referring Provider [phone] Assessment Encounter Date Assessment Date Assessment LastModified [...] more than half the time spent in nktb-gd-mxmh care. Not available 03/16/2023 10:23:27 04/07/2023 04/07/2023 [...] recommended that she take Citracal +D to [place] tablets a day in the time being. [...] than half of this time spent in cfhm-xm-ptrx care. Not available 04/07/2023 19:53:25 04/22/2023 04/22/2023 [...] patient more than half of this in zhje-ol-wnys conversation Not available 04/22/2023 13:40:48 05/11/2023 05/11/2023 [...] patient more than half of this in uuxd-vl-uuri conversation Not available 05/11/2023 10:09:34 06/03/2023 06/03/2023 [...] patient more than half of this in fivj-rs-dysx conversation Not available 06/03/2023 11:06:01 Plan of Treatment Reminders Order Date Submit Date Provider Last Modified By Organization Details Last Modified Time Details Appointments None recorded. Lab None recorded. Referral physical therapist referral - see attached order- please schedule pt 2022 023 [email or web address] [facility], [address] [place], [address], 3 14:21:10 Procedures injection/a spiration joint/bursa (PROC) - in office procedure, administere d by provider 2022 023 [email or web address] In-Office Order, Internal Use Only DO Not Attach Compendium DO Not Attach Compendium, Do Not Delete/merge, [id number] 3 09:57:30 Surgeries None recorded. Imaging XR, shoulder 2022 023 [facility] [place], [address], [place], [address], 3 11:30:58 XR, shoulder 2022 023 [facility] [place], [address], [place], [address], 3 13:10:33 XR, elbow 2022 023 [email or web address] [facility] [place], [address], [place], [address], 3 13:52:51 XR, shoulder 2022 023 [facility] [place], [address], [place], [address], 3 12:30:32 XR, wrist 2022 023 [email or web address] [facility] [place], [address], [place], [address], 3 13:52:51 Medication Orders Kenalog 10 mg/mL suspension for injection [email or web address] [facility] [place], [address], 13:10:33 ropivacaine (PF) 5 mg/mL (0.5 %) injection solution 2022 023 [facility], [address] [place], [address], 13:10:33 Patient TargetsNo targets recorded. Patient InstructionsNo [...] No observ ation record ed. [facility] [place] [address], [place], [address], 04/22/2023 13:39:16 04/22/20 XR, wrist No observ ation record ed. [facility] [place] [address], [place], [address], 04/22/2023 13:38:39 04/22/20 23 XR, elbow No observ ation record ed. [facility] [place] [address], [address], 04/22/2023 13:38:16 05/11/20 23 XR, shoul janet No observ ation record ed. [facility] [place] [address], [address], 05/11/2023 10:06:48 06/03/20 23 XR, shoul janet No observ ation record ed. [facility] [place] [address], [address], 06/03/2023 11:03:45 Result Notes None recorded. Problems Name Problem SNOMED Code Status Onset Date Resolution Date Notes Provider Name and Address Organization Details Recorded Time History of total knee arthroplas ty 0084858554432 Active 2021 Not Available [facility] 3 00:55:20 Pain of left shoulder joint 3380407079454 9109 Active 2021 Not Available [facility] 3 00:55:20 Stable angina 341154815 Active 2018 Not Available [facility] 3 00:55:20 Enthesopat hy of hip region 73002873 Active Not Available [facility] 3 00:55:20 Osteoarthr itis of left knee joint 3134150376115 09 Active 2018 Not Available [facility] 3 00:55:20 Osteoarthr itis 489367149 Active Not Available [facility] 3 00:55:20 Pain of left hip joint 8162969693280 00 Active 2022 FREDERICK Mobley, [facility] [employer] [facility] 3 10:18:52 Pain of right shoulder joint 6196999078780 9100 Active 2022 FREDERICK Mobley, [facility] 3 10:19:32 Partial thickness rotator cuff tear 962298703 Active 2022 FREDERICK Mobley null, [facility] 3 09:54:19 Vitamin D deficiency 77412540 Active 2022 Nava Jose, CORRUGATOR OPERATOR HELPER null, [facility] 3 13:32:39 Closed fracture of upper end of humerus 43671053 Active 2022 Karlie Randall RMStephanie null, [facility] 3 12:06:45 Pain of left elbow joint 2534189909315 9104 Active 2022 FREDERICK Mobley null, [facility] 3 12:07:11 Pain of left wrist 9517726676543 02 Active 2022 FREDERICK Mobley, [facility] 3 12:53:17 Problem Notes None recorded. Medical Equipment None Reported. Allergies Allergen ID Allergen Name Allergen Category Reaction Reaction Severity Criticality Documentation Date Start Date Code Code System Note Provider Name and Address Organization Details Recorded Time 1368 latex environme nt,medica tion rash Not available Not available 01/12/2023 95031 91 RxNorm BLIST ERS Not Available [facility] 3 01:02:40 1369 bacitraci n medicatio n Not available Not available Not available 01/12/20232018 1291 RxNorm cause d infec teed 2nd degre e no rash or sob Not Available [facility] 3 01:02:40 Medications Name Sig Start Date [...] suspension for injection in office 2022 active [facility]: 0003- 0494- 20 Not Available [...] administe red by the provider 06/12 completed [facility]: 0409- 4276- 17 Not Available [...] %) injection solution in office 2022 active [facility] 52019 -064- 01 Not Available Not Available Not [...] Updated DateTime 03/16/2023 162.56 cm Karlie Randall [facility] [employer] [facility] 03/16/2023 09:52:09 Date Recorded Body height Provider Name an d Address Organization Details Last Updated DateTime 04/07/2023 162.56 cm Karlie Randall [facility] [employer] [facility] [employer] [facility] 04/07/2023 12:22:07 Date Recorded Body height Provider Name an d Address Organization Details Last Updated DateTime 04/22/2023 162.56 cm Karlie Randall [facility] [employer] [facility] [employer] [facility] 04/22/2023 12:04:48 Date Recorded Body height Provider Name an d Address Organization Details Last Updated DateTime 05/11/2023 162.56 cm Karlie Randall [facility] [employer] [facility] 05/11/2023 09:04:41 Date Recorded Body height Provider Name an d Address Organization Details Last Updated DateTime 06/03/2023 162.56 cm Karlie Randall [facility] [employer] [facility] [employer] [facility] 06/03/2023 10:23:22 Social History None recorded. Functional Status Question Answer Note LastModified by Organizat ion Details LastModified Time What is your level of alcohol consumption? Occasional [id number] Information not available 01/12/2023 Mental Status None recorded. Family History Relationship Description Onset Age of this Age Resolved Age Notes LastModified by Organization Details LastModified Time Father Heart disease [id number] [id number] Not available 01/12/2023 00:49:06 Father Hypertensive disorder MIGRATION.934 [id number] Not available 01/12/2023 00:49:06 Mother Heart disease MIGRATION.817 [id number] Not available 01/12/2023 00:49:06 Mother Hypertensive disorder MIGRATION.374 [id number] Not available 01/12/2023 00:49:06 Brother Heart disease MIGRATION.389 [id number] Not available 01/12/2023 00:49:06 Medical History Condition [...] HAVE YOU BEEN HOSPITALIZED OR SEEN IN [facility] IN THE PAST YEAR ? N BURSITIS [...] SNOMED-CT Code Diagnosis ICD10 Code Diagnosis Note [id number] Aydin Pritchard MD [facility] [place] [address] [place] [address] 01/12/2021 00:00:00 01/12/2021 14:46:55 [id number] MD SALO [facility] [place] [address] [place] [address] 01/26/2021 00:00:00 01/26/2021 15:38:38 [id number] MD CHANDU [facility] [place] [address] [place] [address] 04/03/2021 00:00:00 04/03/2021 09:59:55 [id number] MD SALO [facility] [place] [address] [place] [address] 05/01/2021 00:00:00 05/01/2021 09:14:43 [id number] MD SALO [facility] [address] [place] [address] 06/04/2021 00:00:00 06/04/2021 11:10:45 [id number] MD SALO [facility] [place] [address] [place] [address] 06/12/2021 00:00:00 06/13/2021 12:11:52 [id number] MD CHANDU [facility] [place] [address] [place] [address] 07/10/2021 00:00:00 07/10/2021 09:44:19 [id number] Aydin Pritchard MD [facility] [place] [address] [place] [address] 07/24/2021 00:00:00 07/24/2021 12:01:16 [id number] MD SALO [facility] [place] [address] [place] [address] 01/01/2022 00:00:00 01/01/2022 10:41:38 [id number] MD CHANDU [facility] [place] [address] [place] [address] 04/16/2022 00:00:00 04/16/2022 09:57:05 [id number] ROSALIA Owens [facility] [place] [address] [place] [address] 04/30/2022 00:00:00 04/30/2022 09:18:47 [id number] Aydin Pritchard MD [facility] [address] 02/03/2023 09:59:49 02/03/2023 11:15:08 Pain of right shoulder joint 2674643399 3225956 M25.[id number] [facility] [place] [address] [place] [address] 03/16/2023 09:46:32 03/16/2023 10:51:04 Partial thickness rotator cuff tear 118330732 M75.101 [id number] Aydin Pritchard MD [facility]_[address] [address] 04/07/2023 12:05:17 04/08/2023 09:46:52 Pain of left shoulder joint 7068679694 0114333 M25.512 [id number] Aydin Pritchard MD [facility] [place] [address] [place] [address] 04/22/2023 11:58:33 04/22/2023 13:52:51 Closed fracture of upper end of humerus 97633212 S42.D Pain of le ft elbow joint 8660382574 6801032 M25.522 Pain of left wrist 68046 09146 73340 M25.532 [id number] Aydin Pritchard MD [facility] [place] [address] [place] [address] 05/11/2023 09:00:00 05/11/2023 10:14:12 Closed fracture of upper end of humerus 12264555 S42.202D Pain of ri ght shoulder joint 0757465758 5697661 M25.511 [id number] Aydin Pritchard MD [facility] [place] [address] [address] [place] [address] 06/03/2023 10:10:44 06/03/2023 11:23:28 Closed fracture of upper end of humerus 39040591 S4D Health Concerns Section Related Observation LastModified by Organization Detai ls LastModified Time None Recorded Concern Status LastModified by Organization Details LastModified Time None Recorded Advance Directives Directive None Recorded Payers Insurance Date Sequence Insurance Name Policy Number Policy Ba Covered Member ID Ba Member ID Guarantor Name 05/31/2023 1 [place] Betzy Palomino Reddo [id number] Betzy Palomino Reddo 06/09/2023 2 [place] [id number] Betzy Palomino Reddo [id number] Betzy Palomino Reddo 05/31/2023 [employer] ADMIN[employer]RAT[employer] - DMEPOS ASSIGNED (MEDICARE [facility] B) Betzy Palomino Reddo [id number] Betzy Palomino Reddo Notes Date Note [...] with supraspinatus insertional disease. Aydin Pritchard MD [address] [place] [address], [place] [address], [place], [address], [place] [facility] [place] [employer] [facility] 04/07/2023 19:53:42 OBGyn Episode No OBEpisode recorded.
--- OUTSIDE RECORDS SUMMARY | 2025-05-20 08:50 | XMS_ITS | Referral Summary ---
Author Organization [facility] [address] [facility] [address] [facility] [address] [place] [address] Care Team Providers Care Instructional Writer Name Role Phone Janeth Viramontes MD Primary [...] by mouth daily Active cholecalciferol (VITAMIN D-3) 48410 unit capsule Take 1 capsule (10,000 Units [...] mg SL tabletIndication s:Coronary artery disease of [place] artery of [place] heart with stable angina pectoris DISSOLVE ONE [...] (04/01/2020): Added automatically from request for surgery [id number] Palpitations 01/09/2020 Chronic fatigue 01/09/2020 Preoperative cardiovascular examination 07/04/20 19 OWENS (dyspnea on exertion) 04/20/2018 Orthostatic hypotension 10/19/2016 Overview (02/18/2017): Orthostatic hypotension 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 (02/18/2017): Coronary vasospasm Thoracic back pain 12/29/2015 Overview (02/18/2017): Thoracic back pain, unspecified back pain laterality Coronary arteriosclerosis in [place] artery 11/04 Overview (02/18/2017): Coronary artery disease involving [place] coronary artery of [place] heart with other form of angina pectoris Left ventricular dilatation 11/04/2015 Overview (02/18/2017): LVE (left ventricular enlargement) Coronary artery disease invo lving [place] coronary artery of [place] heart with angina pectoris with documented spasm [...] on file Legal Sex Female 3:37 PM 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 Gender Identity Female 05/06/2020 3:45 PM CDT Sexual Orientation Straight 01/31/2020 9: 43 AM CDT Last Filed Vital Signs Vital Sign Reading Time Taken Comments Blood Pressure 128/68 02/08/2025 12:51 PM CDT Pulse 76 02/08/2025 12:51 PM CDT Temperature 36.8 C (98.3 F) 04/02/2020 12:00 PM CDT Respiratory Rate 16 11/10/2021 9:02 AM 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 Oxygen Saturation 95% 02/08/2025 12: 51 PM CDT Inhaled Oxygen Concentration - - Weight 96.9 kg (213 lb 11.2 oz) 025 12:51 PM CDT Height 167.6 cm (5' 6) 02/08/2025 12:5 1 PM CDT Body Mass Index 34.49 02/08/2025 12:51 PM CDT Plan of Treatment Not on file Medical Devices Explanted Type Area Cook Dinner Device Identifier Shelf Expiration Date Model / Serial / Lot [employer] 6571 Chris Flexi-Stent 7fr 3cm Small Pigtail Flexible .035in Stent - [id number] Implanted:Qty : 1 on 03/31/2020 by Ricky Jeter MD at [facility] Explanted:Qty : 1 on 04/02/2020 by Ricky Jeter MD at [facility] Stent N/A: Pancreas [employer] 09/13/2024 [id number] / / [id number] Conmed Purnima [id number] [place] Viabil 10mm 8.5fr 6cm 200cm Fully Covered Self Expand Pull - [id number] - [id number] Implanted:Qty : 1 on 03/31/2020 by Ricky Jeter MD at [facility] Explanted:Qty : 1 on 04/02/2020 by Ricky Jeter MD at [facility] Stent N/A: Bile Duct Conmed Purnima 12/20/2022 [id number] / [id number] / Insurance MEDICARE MEDICARE [facility] MEDICARE BLUE CROSS MEDICARE SUPPLEMENT Advance Directives For more information, please contact: [phone] * Full Code (Latest Code Status on File) Date Activated Date Inactivated Comments 03/31/2020 8:47 AM 04/02/2020 5:04 PM Care Teams Instructional Writer Relationship Specialty Start Date End Date Janeth Viramontes MD [address] [id number] [facility] - General 09/16/11
--- OUTSIDE RECORDS SUMMARY | 2025-05-20 08:51 | XMS_ITS | Patient Health Record ---
Author Organization [facility] Address [address] [place], [place] [address] Care Team Providers Care Lighting Designer Name Role Phone LISA BUTLER Unavailable [phone] Janeth Viramontes Unavailable Unavailable Allergies Allergen (clinical [...] sodium 0.2 MG Oral Tablet *Reorder from [employer] for eRx and Interaction Alerts* 0 Active Lisinopril 10 MG Oral Tablet ORAL lisinopril 10 MG Oral TabletOriginal Medicationlisinopril 10 MG Oral Tablet *Reorder from [facility] for eRx and Interaction Alerts* 0 Active urea 400 MG/ML Topical Cream CUTANEOUS urea 400 MG/ML Topical CreamOriginal Medicationurea 400 MG/ML Topical Cream *Reorder from [facility] for eRx and Interaction Alerts* 3 Active 12 HR ranolazine 1000 MG Extended Release Oral Tablet [Ranexa] ORAL 12 HR ranolazine 1000 MG Extended Release Oral Tablet [Ranexa]Original [id number] HR ranolazine 1000 MG Extended Release Oral Tablet [Ranexa] *Reorder from [facility] for eRx and Interaction Alerts* 6 Active Famotidine 20 MG Oral Tablet ORAL famotidine 20 MG Oral TabletOriginal Medicationfamotidine 20 MG Oral Tablet *Reorder from [facility] for eRx and Interaction Alerts* 0 Active Medrol Dosepak ORAL Medrol DosepakOr iginal MedicationMedrol Dosepak *Reorder from [facility] for eRx and Interaction Alerts* 3 Active Isosorbide Mononitrate 20 MG Oral Tablet ORAL isosorbide mononitrate 20 MG Oral TabletOriginal Medicationisosorbide mononitrate 20 MG Oral Tablet *Reorder from [facility] for eRx and Interaction Alerts* 0 Active pantoprazole 40 MG Delayed Release Oral Tablet ORAL pantoprazole 40 MG Delayed Release Oral TabletOriginal Medicationpantoprazole 40 MG Delayed Release Oral Tablet *Reorder from [facility] for eRx and Interaction Alerts* 0 Active calcium carbonate 600 MG / cholecalciferol 125 UNT Oral Tablet ORAL calcium carbonate 600 MG / cholecalciferol 125 UNT Oral TabletOriginal Medicationcalcium carbonate 600 MG / cholecalciferol 125 UNT Oral Tablet *Reorder from [facility] for eRx and Interaction Alerts* 6 Active ciclopirox 80 MG/ML Topical Solution ciclopirox 80 MG/ML Topical SolutionOriginal Medicationciclopirox 80 MG/ML Topical Solution *Reorder from [facility] for eRx and Interaction Alerts* 7 Active amlodipine 10 MG Oral Tablet ORAL amlodipine 10 MG Oral TabletOriginal Medicationamlodipine 10 MG Oral Tablet *Reorder from [facility] for eRx and Interaction Alerts* 0 Active aspirin 81 MG Delayed Release Oral Tablet ORAL aspirin 81 MG Delayed Release Oral TabletOriginal Medicationaspirin 81 MG Delayed Release Oral Tablet *Reorder from [facility] for eRx and Interaction Alerts* 6 Active Furosemide 40 MG Oral Tablet ORAL furosemide 40 MG Oral TabletOriginal Medicationfurosemide 40 MG Oral Tablet *Reorder from [facility] for eRx and Interaction Alerts* 0 Active clotrimazole 10 MG/ML Topical Solution CUTANEOUS clotrimazole 10 MG/ML Topical SolutionOriginal Medicationclotrimazole 10 MG/ML Topical Solution *Reorder from [facility] for eRx and Interaction Alerts* 4 Active ipratropium bromide 0.042 MG/ACTUAT Metered Dose Nasal [place] ipratropium bromide 0.042 MG/ACTUAT Metered Dose Nasal SprayOriginal Medicationipratropium bromide 0.042 MG/ACTUAT Metered Dose Nasal [place] *Reorder from [facility] for eRx and Interaction Alerts* 0 Active Immunizations Vaccine Route Administration Date Status Comme nts Influenza, high dose seasonal Unknown 09/09/2023 Admini stered Encounters Encounter Location Date Provider Diagnosis [facility] [address] [place] [id number] 06/25/2024 LISA SNOOK Tinea unguium B35.1 ; Pain in right foot M79.671 ; Pain in left foot M79.672 ; Atherosclerosis of [place] arteries of extremities with intermittent claudication, bilateral legs I70.213 and Acquired keratosis [keratoderma] palmaris et plantaris L85.1 [facility] [address] [place] [id number] 09/17/2024 LISA SNOOK Tinea unguium B35.1 ; Pain in right toe(s) M79.674 ; Pain in left toe(s) M79.675 and Atherosclerosis of [place] arteries of extremities with intermittent claudication, bilateral legs I70.213 [facility] [address] [place] [id number] 12/17/2024 LISA SNOOK Tinea unguium B35.1 ; Pain in right foot M79.671 ; Pain in left foot M79.672 ; Atherosclerosis of [place] arteries of extremities with intermittent claudication, bilateral legs I70.213 and Acquired keratosis [keratoderma] palmaris et plantaris L85.1 [facility] [address] [place] [id number] 03/18/2025 LISA SNOOK Tinea unguium B35.1 ; Pain in right foot M79.671 ; Pain in left foot M79.672 ; Atherosclerosis of [place] arteries of extremities with intermittent claudication, bilateral [...] foot (ICD-10 - M79.672) 06/25/2024 Atherosclerosis of [place] arteries of extremities with intermittent claudication, bilateral legs (ICD-10 - I70.213) 09/17/2024 Atherosclerosis of [place] arteries of extremities with intermittent claudication, bilateral legs (ICD-10 - I70.213) 12/17/2024 Atherosclerosis of [place] arteries of extremities with intermittent claudication, bilateral legs (ICD-10 - I70.213) 03/18/2025 Atherosclerosis of [place] arteries of extremities with intermittent claudication, bilateral [...] Appt Details Provider Name:LISA BUTLER, 09:50:00 AM, [address], [facility], [place], [place], [id number], Insurance Providers Payer Name Payer Address Payer Phone Subscriber Number Group Number Insured Name Patient Relationship to Insured Coverage Start Date Coverage End Date Medicare Part B [place] [address] [place] [address] [id number] FREDDIE MARTÍNEZ Self - patient is the insured [facility] ([facility]) ATTN CLAIMS [address] [place] [address] [id number] FREDDIE MARTÍNEZ Self - patient is the insured
[2025-05-20 09:22] LABS: Anion Gap 4 mmol/L (4-12); Blood Urea Nitrogen 12 mg/dL (7-17); Calcium 8.8 mg/dL (8.4-10.2); Carbon Dioxide 26 mmol/L (22-30); Chloride 106 mmol/L (98-107); Estimated Glomerular Filt Rate 46; Glucose 110 mg/dL (65-110); Osmolality Calculated 282 mOsm/kg (285-295); Potassium 4.5 mmol/L (3.4-5.0); Sodium 136 mmol/L (137-145)
== END 2025-05-20 08:39 | disposition home or self-care (01) ==
PROVIDERS: PCP Internal Medicine; Visit Provider Internal Medicine
DX: E86.0 Dehydration (principal)
CPT/HCPCS: 36415; 80048

== ENCOUNTER 2025-05-30 07:38 | Outpatient (CLI) | payer MEDICARE, SELFPAY ==
--- OUTSIDE RECORDS SUMMARY | 2025-05-30 07:42 | XMS_ITS ---
Author Organization [facility] Address [address] [place], [place] [id number] Care Team Providers Care Military Cook Name Role Phone LISA BUTLER Unavailable [phone] Janeth Viramontes Unavailable Unavailable Allergies Allergen (clinical drug ingredient) Drug/Non Drug Allergy documented on EMR Reaction Allergy Type Onset Date Status cefadroxil Duricef (uncoded) Unknown Allergy 09/04/2012 active Bactroban Unknown Drug Allergy 12/13/2014 active Latex Latex Unknown Allergy 12/16/2014 active Tape Unknown Allergy Active REASON FOR VISIT Patient presents for at-risk foot care . The patient has painful toenails that cause difficulty with ambulation and shoegear. The onset is gradual Medications Medication SIG (Take, Route, Frequency, Duration) Notes Start Date End Date Status Potassium Chloride A ctive Furosemide 40 MG Oral Tablet ORAL furosemide 40 MG Oral TabletOriginal Medicationfurosemide 40 MG Oral Tablet *Reorder from [facility] for eRx and Interaction Alerts* 0 Active urea 400 MG/ML Topical Cream CUTANEOUS urea 400 MG/ML Topical CreamOriginal Medicationurea 400 MG/ML Topical Cream *Reorder from [facility] for eRx and Interaction Alerts* 3 Active Famotidine 20 MG Oral Tablet ORAL famotidine 20 MG Oral TabletOriginal Medicationfamotidine 20 MG Oral Tablet *Reorder from [facility] for eRx and Interaction Alerts* 0 Active Isosorbide Mononitrate 20 MG Oral Tablet ORAL isosorbide mononitrate 20 MG Oral TabletOriginal Medicationisosorbide mononitrate 20 MG Oral Tablet *Reorder from [facility] for eRx and Interaction Alerts* 0 Active levothyroxine sodium 0.2 MG Oral Tablet ORAL levothyroxine sodium 0.2 MG Oral TabletOriginal Medicationlevothyroxine sodium 0.2 MG Oral Tablet *Reorder from [facility] for eRx and Interaction Alerts* 0 Active Medrol Dosepak ORAL Medrol DosepakOr iginal MedicationMedrol Dosepak *Reorder from [facility] for eRx and Interaction Alerts* 3 Active pantoprazole 40 MG Delayed Release Oral Tablet ORAL pantoprazole 40 MG Delayed Release Oral TabletOriginal Medicationpantoprazole 40 MG Delayed Release Oral Tablet *Reorder from [facility] for eRx and Interaction Alerts* 0 Active clotrimazole 10 MG/ML Topical Solution CUTANEOUS clotrimazole 10 MG/ML Topical SolutionOriginal Medicationclotrimazole 10 MG/ML Topical Solution *Reorder from [facility] for eRx and Interaction Alerts* 4 Active ipratropium bromide 0.042 MG/ACTUAT Metered Dose Nasal [place] ipratropium bromide 0.042 MG/ACTUAT Metered Dose Nasal SprayOriginal Medicationipratropium bromide 0.042 MG/ACTUAT Metered Dose Nasal [place] *Reorder from [facility] for eRx and Interaction Alerts* 0 Active 12 HR ranolazine 1000 MG Extended Release Oral Tablet [Ranexa] ORAL 12 HR ranolazine 1000 MG Extended Release Oral Tablet [Ranexa]Original [id number] HR ranolazine 1000 MG Extended Release Oral Tablet [Ranexa] *Reorder from [facility] for eRx and Interaction Alerts* 6 Active calcium carbonate 600 MG / cholecalciferol 125 UNT Oral Tablet ORAL calcium carbonate 600 MG / cholecalciferol 125 UNT Oral TabletOriginal Medicationcalcium carbonate 600 MG / cholecalciferol 125 UNT Oral Tablet *Reorder from [facility] for eRx and Interaction Alerts* 6 Active ciclopirox 80 MG/ML Topical Solution ciclopirox 80 MG/ML Topical SolutionOriginal Medicationciclopirox 80 MG/ML Topical Solution *Reorder from [facility] for eRx and Interaction Alerts* 7 Active amlodipine 10 MG Oral Tablet ORAL amlodipine 10 MG Oral TabletOriginal Medicationamlodipine 10 MG Oral Tablet *Reorder from [facility] for eRx and Interaction Alerts* 0 Active aspirin 81 MG Delayed Release Oral Tablet ORAL aspirin 81 MG Delayed Release Oral TabletOriginal Medicationaspirin 81 MG Delayed Release Oral Tablet *Reorder from [facility] for eRx and Interaction Alerts* 6 Active Lisinopril 10 MG Oral Tablet ORAL lisinopril 10 MG Oral TabletOriginal Medicationlisinopril 10 MG Oral Tablet *Reorder from [facility] for eRx and Interaction Alerts* 0 Active Encounters Encounter Location Date Provider Diagnosis [facility] [address] [place], [place] [id number] 05/27/2025 LISA BUTLER Tinea unguium B35.1 Assessments Encounter Date Diagnosis (ICD Code) Assessment Notes Treatment Notes Treatment Clinical Notes Section Notes 05/27/2025 Tinea unguium (ICD-10 - B35.1) FUNGAL TOENAILS: Discussed various treatment options for fungal toenails including debridement, topical antifungals, oral antifungals, toenail avulsion, or toenail matrixectomy. NAIL DEBRIDEMENT: Nails 1-5 Bilateral were debrided extensively with nail nippers and emery board, reducing length and girth to pink healthy tissue with any subungual debris and necrotic tissue removed Plan Of Treatment Treatment Notes Assessment Notes [...] sooner if problems arise Provider Name:LISA BUTLER, 10:00:00 AM, [address], [place], [id number], Progress Notes * FREDDIE MARTÍNEZ SDOB:[birth year] (79 yo F)Acc No.[id number]:05/27/2025 Patient: FREDDIE QUARLES Provider: Ramirez Butler DPM :1945 A ge:79 Y S ex:Female Date:05/27/2025 Address:[address] [place] [address] Subjective: * Chief Complaints: * 1 . [...] aggravated by shoe gear. Onset is gradual. , Patient denies taking prescription blood thinners but does take a daily aspirin., Date last seen by Dr. Viramontes was 05/24/25., Initials mf. sample. * Medical History: * Family History: F [...] : Never smoked. * Medications: T aking Potassium Chloride , Taking Furosemide 40 MG Oral Tablet ORAL , Notes to Pharmacist: furosemide 40 MG Oral TabletOriginal Medicationfurosemide 40 MG Oral Tablet [facility]*, Taking Famotidine 20 MG Oral Tablet ORAL , Notes to Pharmacist: famotidine 20 MG Oral TabletOriginal Medicationfamotidine 20 MG Oral Tablet *Reorder from [facility] for eRx and Interaction Alerts*, Taking Isosorbide Mononitrate 20 MG Oral Tablet ORAL , Notes to Pharmacist: isosorbide mononitrate 20 MG Oral TabletOriginal Medicationisosorbide mononitrate 20 MG Oral Tablet *Reorder from [facility] for eRx and Interaction Alerts*, Taking Lisinopril 10 MG Oral Tablet ORAL , Notes to Pharmacist: lisinopril 10 MG Oral TabletOriginal Medicationlisinopril 10 MG Oral Tablet *Reorder from [facility] for eRx and Interaction Alerts*, Taking 12 HR ranolazine 1000 MG Extended Release Oral Tablet [Ranexa] ORAL , Notes to Pharmacist: 12 HR ranolazine 1000 MG Extended Release Oral Tablet [Ranexa]Original [id number] HR ranolazine 1000 MG Extended Release Oral Tablet [Ranexa] *Reorder from [facility] for eRx and Interaction Alerts*, Taking amlodipine 10 MG Oral Tablet ORAL , Notes to Pharmacist: amlodipine 10 MG Oral TabletOriginal Medicationamlodipine 10 MG Oral Tablet *Reorder from [facility] for eRx and Interaction Alerts*, Taking aspirin 81 MG Delayed Release Oral Tablet ORAL , Notes to Pharmacist: aspirin 81 MG Delayed Release Oral TabletOriginal Medicationaspirin 81 MG Delayed Release Oral Tablet *Reorder from [facility] for eRx and Interaction Alerts*, Taking calcium carbonate 600 MG / cholecalciferol 125 UNT Oral Tablet ORAL , Notes to Pharmacist: calcium carbonate 600 MG / cholecalciferol 125 UNT Oral TabletOriginal Medicationcalcium carbonate 600 MG / cholecalciferol 125 UNT Oral Tablet *Reorder from [facility] for eRx and Interaction Alerts*, Taking ciclopirox 80 MG/ML Topical Solution , Notes to Pharmacist: ciclopirox 80 MG/ML Topical SolutionOriginal Medicationciclopirox 80 MG/ML Topical Solution *Reorder from [facility] for eRx and Interaction Alerts*, Taking clotrimazole 10 MG/ML Topical Solution CUTANEOUS , Notes to Pharmacist: clotrimazole 10 MG/ML Topical SolutionOriginal Medicationclotrimazole 10 MG/ML Topical Solution *Reorder from [facility] for eRx and Interaction Alerts*, Taking ipratropium bromide 0.042 MG/ACTUAT Metered Dose Nasal [place] , Notes to Pharmacist: ipratropium bromide 0.042 MG/ACTUAT Metered Dose Nasal SprayOriginal Medicationipratropium bromide 0.042 MG/ACTUAT Metered Dose Nasal [place] *Reorder from [facility] for eRx and Interaction Alerts*, Taking levothyroxine sodium 0.2 MG Oral Tablet ORAL , Notes to Pharmacist: levothyroxine sodium 0.2 MG Oral TabletOriginal Medicationlevothyroxine sodium 0.2 MG Oral Tablet *Reorder from [facility] for eRx and Interaction Alerts*, Taking Medrol Dosepak ORAL , Notes to Pharmacist: Medrol DosepakOriginal MedicationMedrol Dosepak *Reorder from [facility] for eRx and Interaction Alerts*, Taking pantoprazole 40 MG Delayed Release Oral Tablet ORAL , Notes to Pharmacist: pantoprazole 40 MG Delayed Release Oral TabletOriginal Medicationpantoprazole 40 MG Delayed Release Oral Tablet *Reorder from [facility] for eRx and Interaction Alerts*, Taking urea 400 MG/ML Topical Cream CUTANEOUS , Notes to Pharmacist: urea 400 MG/ML Topical CreamOriginal Medicationurea 400 MG/ML Topical Cream *Reorder from [facility] for eRx and Interaction Alerts*, Medication List reviewed and reconciled with the patient * Allergies: D uricef: Allergy - Onset Date 09/04/2012, Bactroban: Allergy - Onset Date 12/13/2014, Latex: Allergy - Onset Date 12/16/2014, Tape. Objective: * Vitals: * Examination: C onstitutional: [...] lower extremities. ? Assessment: * Assessment: 1. Turner snider - B35.1 (Primary) Plan: * Treatment: * Follow Up: 1 0-12 Weeks (Reason: At Risk Foot care, sooner if problems arise) * Billing Information: * Visit Code: * Procedure Codes: * Electronic signature of LISA BUTLER DPM on 05/30/2025 at 07:42 AM CDT Sign off status: Pending * Provider: Ramirez Butler DPM Date: 0 05/27/2025 Generated for Santi torres/[place] on: 0 05/30/2025 07:42 AM CDT History and Physical Notes * HPI (History of Present Illness) Category Sub-Category Detail Notes Category Not es HPI General care Patient presents to the office for at risk foot care. Patient states that their nails are thickened, elongated and painful. Patient states that it is aggravated by shoe gear. Onset is gradual. , Patient denies taking prescription blood thinners but does take a daily aspirin., Date last seen by Dr. Viramontes was 05/24/25., Initials mf sample Examination Category Sub-Category Detail Notes Category [...]
--- OUTSIDE RECORDS SUMMARY | 2025-05-30 07:42 | XMS_ITS | Patient Health Record ---
Author Organization [facility] Address [address] [place] [address] Care Team Providers Care Senior Javascript Developer Name Role Phone Wander METCALF, Janeth Primary [...] morning Orally Once a day Active Ipratropium [place] HFA 17 MCG/ACT 2 puffs Inhalation Four [...] W/U Status Risk Notes Problem Functional dyspepsia (7454614) Functional dyspepsia (K30) Active confirmed Problem Spasm [...] End Date Medicare-M O Medicare [address] [address] [place], [place] [id number] Betzy Juarez Self - patient is the insured [place] [address] [place], [place] [id number] Betzy Juarez Self - patient is [...]
--- OUTSIDE RECORDS SUMMARY | 2025-05-30 07:42 | XMS_ITS | Patient Health Record ---
Author Organization [facility] Address [address] [place], [place] [phone] Care Team Providers Care Intermediate Teacher Name Role Phone LISA BUTLER Unavailable [phone] Janeth Viramontes Unavailable Unavailable Allergies Allergen (clinical drug ingredient) Drug/Non Drug Allergy documented on EMR Reaction Allergy Type Onset Date Status cefadroxil Duricef (uncoded) Unknown Allergy 09/04/2012 active Bactroban Unknown Drug Allergy 12/13/2014 active Latex Latex Unknown Allergy 12/16/2014 active Tape Unknown Allergy Active Reason For Referral No Information Medications Medication SIG (Take, Route, Frequency, Duration) Notes Start Date End Date Status Potassium Chloride A ctive Furosemide 40 MG Oral Tablet ORAL furosemide 40 MG Oral TabletOriginal Medicationfurosemide 40 MG Oral Tablet *Reorder from [facility] for eRx and Interaction Alerts* 0 Active levothyroxine sodium 0.2 MG Oral Tablet ORAL levothyroxine sodium 0.2 MG Oral TabletOriginal Medicationlevothyroxine sodium 0.2 MG Oral Tablet *Reorder from [facility] for eRx and Interaction Alerts* 0 Active Lisinopril 10 MG Oral Tablet ORAL lisinopril 10 MG Oral TabletOriginal Medicationlisinopril 10 MG Oral Tablet *Reorder from [facility] for eRx and Interaction Alerts* 0 Active urea 400 MG/ML Topical Cream CUTANEOUS urea 400 MG/ML Topical CreamOriginal Medicationurea 400 MG/ML Topical Cream *Reorder from [facility] for eRx and Interaction Alerts* 3 Active 12 HR ranolazine 1000 MG Extended Release Oral Tablet [Ranexa] ORAL 12 HR ranolazine 1000 MG Extended Release Oral Tablet [Ranexa]Original [id number] HR ranolazine 1000 MG Extended Release Oral Tablet [Ranexa] *Reorder from [facility] for eRx and Interaction Alerts* 6 Active Famotidine 20 MG Oral Tablet ORAL famotidine 20 MG Oral TabletOriginal Medicationfamotidine 20 MG Oral Tablet *Reorder from [facility] for eRx and Interaction Alerts* 0 Active Medrol Dosepak ORAL Medrol DosepakOr iginal MedicationMedrol Dosepak *Reorder from [facility] for eRx and Interaction Alerts* 3 Active Isosorbide Mononitrate 20 MG Oral Tablet ORAL isosorbide mononitrate 20 MG Oral TabletOriginal Medicationisosorbide mononitrate 20 MG Oral Tablet *Reorder from [facility] for eRx and Interaction Alerts* 0 Active pantoprazole 40 MG Delayed Release Oral Tablet ORAL pantoprazole 40 MG Delayed Release Oral TabletOriginal Medicationpantoprazole 40 MG Delayed Release Oral Tablet *Reorder from [facility] for eRx and Interaction Alerts* 0 Active calcium carbonate 600 MG / cholecalciferol 125 UNT Oral Tablet ORAL calcium carbonate 600 MG / cholecalciferol 125 UNT Oral TabletOriginal Medicationcalcium carbonate 600 MG / cholecalciferol 125 UNT Oral Tablet *Reorder from [facility] for eRx and Interaction Alerts* 6 Active ciclopirox 80 MG/ML Topical Solution ciclopirox 80 MG/ML Topical SolutionOriginal Medicationciclopirox 80 MG/ML Topical Solution *Reorder from [facility] for eRx and Interaction Alerts* 7 Active amlodipine 10 MG Oral Tablet ORAL amlodipine 10 MG Oral TabletOriginal Medicationamlodipine 10 MG Oral Tablet *Reorder from [facility] for eRx and Interaction Alerts* 0 Active aspirin 81 MG Delayed Release Oral Tablet ORAL aspirin 81 MG Delayed Release Oral TabletOriginal Medicationaspirin 81 MG Delayed Release Oral Tablet *Reorder from [facility] for eRx and Interaction Alerts* 6 Active clotrimazole 10 MG/ML Topical Solution CUTANEOUS clotrimazole 10 MG/ML Topical SolutionOriginal Medicationclotrimazole 10 MG/ML Topical Solution *Reorder from [facility] for eRx and Interaction Alerts* 4 Active ipratropium bromide 0.042 MG/ACTUAT Metered Dose Nasal [place] ipratropium bromide 0.042 MG/ACTUAT Metered Dose Nasal SprayOriginal Medicationipratropium bromide 0.042 MG/ACTUAT Metered Dose Nasal [place] *Reorder from [facility] for eRx and Interaction Alerts* 0 Active Immunizations Vaccine Route Administration Date Status Comme nts Influenza, high dose seasonal Unknown 09/09/2023 Admini stered Encounters Encounter Location Date Provider Diagnosis [facility] [address] [place] [id number] 05/27/2025 LISA SNOOK Tinea unguium B35.1 [facility] [address] [place] [id number] 06/25/2024 LISA SNOOK Tinea unguium B35.1 ; Pain in right foot M79.671 ; Pain in left foot M79.672 ; 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, bilateral legs I70.213 and Acquired keratosis [keratoderma] palmaris et plantaris L85.1 [facility] [address] [place] [id number] 09/17/2024 LISA SNOOK Tinea unguium B35.1 ; Pain in right toe(s) M79.674 ; Pain in left toe(s) M79.675 and 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, bilateral legs I70.213 [facility] [address] [place] [id number] 12/17/2024 LISA SNOOK Tinea unguium B35.1 ; Pain in right foot M79.671 ; Pain in left foot M79.672 ; 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, bilateral legs I70.213 and Acquired keratosis [keratoderma] palmaris et plantaris L85.1 [facility] [address] [place], [place] [id number] 03/18/2025 LISA BUTLER Tinea unguium B35.1 ; Pain in right foot M79.671 ; Pain in left foot M79.672 ; 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, bilateral [...] Pain in right foot (ICD-10 - M79.671) 05/27/2025 Tinea unguium (ICD-10 - B35.1) FUNGAL TOENAILS: Discussed various treatment options for fungal toenails including debridement, topical antifungals, oral antifungals, toenail avulsion, or toenail matrixectomy. 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, bilateral legs (ICD-10 - I70.213) 12/17/2024 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, bilateral legs (ICD-10 - I70.213) 03/18/2025 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, bilateral [...] Treatment Next Appt Details Provider Name:LISA BUTLER, 10:00:00 AM, [address], [address], [id number], Insurance Providers Payer Name Payer Address Payer Phone Subscriber Number Group Number Insured Name Patient Relationship to Insured Coverage Start Date Coverage End Date Medicare Part B [place] [address] [place] [phone] [id number] FREDDIE MARTÍNEZ Self - patient is the insured [facility] ([facility]) ATTN CLAIMS [address] [place] [address] [id number] FREDDIE MARTÍNEZ Self - patient is the insured
--- OUTSIDE RECORDS SUMMARY | 2025-05-30 07:42 | XMS_ITS | Referral Summary ---
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 Active flaxseed oil oil Active fluticasone propionate (FLONASE) [...] by mouth daily Active cholecalciferol (VITAMIN D-3) 94933 unit capsule Take 1 capsule (10,000 Units total) by mouth daily Active zoledronic acid/mannitol-w ater (RECLAST IV) Infuse into a venous catheter Infusion Active latanoprost (XALATAN) 0.005 % ophthalmic solution 01/09/20 24 Active carboxymethylce llulose sodium (REFRESH PLUS OPHT) Administer into affected eye(s) Active ipratropium (ATROVENT) 42 mcg (0.06 %) nasal spray USE 2 SPRAY(S) IN EACH NOSTRIL TWICE DAILY 02/23/20 24 Active losartan (COZAAR) 100 mg tablet Take 1 tablet (100 mg total) by mouth daily Active gabapentin (NEURONTIN) 100 mg capsule Take [...] mg SL tabletIndicatio ns: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 DO NOT EXCEED A TOTAL OF 3 DOSES IN 15 MINUTES 25 tablet 3 02/09/20 25 Active potassium chloride ER 10 mEq CR tablet TAKE 2 TABLETS BY MOUTH ONCE DAILY WITH FOOD 05/24/20 25 Active furosemide (LASIX) 40 mg tablet Take 1 tablet (40 mg total) by mouth daily 05/28/20 25 Active carvediloL (COREG) 6.25 mg tabletIndicatio ns:Essential hypertension Take 1 tablet (6.25 mg total) by mouth 2 (two) times a day with meals 180 tablet 3 05/28/20 25 026 Active hydroCHLOROthia zide (HYDRODIURIL) 25 mg tablet Take 1 tablet (25 mg total) by mouth daily 10/13/20 22 025 Discontinued(A lternate therapy) furosemide (LASIX) 40 mg tabletIndicatio ns:OWENS (dyspnea on exertion) Take 1.5 tablets (60 mg total) by mouth daily 03/02/20 24 025 Discontinued metoprolol tartrate (LOPRESSOR) 25 mg immediate release tablet Take 1 tablet by mouth twice daily 180 tablet 02/23/20 25 025 Discontinued metoprolol tartrate (LOPRESSOR) 25 mg immediate release tablet Take 1 tablet by mouth twice daily 180 tablet 05/20/20 25 025 Discontinued(A lternate therapy) Active Problems Problem Noted Date Diagnosed Date JULISSA on CPAP 09/15/2023 Localized edema 09/24/2022 Mixed hyperlipidemia 11/10/2021 QT prolongation 11/10/2021 Biliary tract disease 04/01/2020 Abdominal pain 04/01/2020 Elevated amylase 04/01/2020 Generalized abdominal pain 02/13/2020 Overview (04/01/2020): Added automatically from request for surgery [id number] Palpitations 01/09/2020 Chronic fatigue 01/09/2020 Preoperative cardiovascular [...] Packs/Day Years Used Date Smoking Tobacco: Never Smokeless Tobacco: Never Tobacco Cessation:Counseling Given: Not [...] on file Legal Sex Female 3:37 PM SURGICAL SCRUB TECHNOLOGIST Gender Identity Female 05/06/2020 3:45 PM CDT Sexual Orientation Straight 01/31/2020 9: 43 AM CDT Last Filed Vital Signs Vital Sign Reading Time Taken Comments Blood Pressure 150/82 05/28/2025 11:21 AM CDT Pulse 70 05/28/2025 11:21 AM CDT Temperature 36.8 C (98.3 F) 04/02/2020 12:00 PM CDT Respiratory Rate 16 11/10/2021 9:02 AM SURGICAL SCRUB TECHNOLOGIST Oxygen Saturation 98% 05/28/2025 11:21 AM CDT Inhaled Oxygen Concentration - - Weight 96.2 kg (212 lb) 05/28/2025 11:21 AM CDT Height 167.6 cm (5' 6) 05/28/2025 11:21 AM CDT Body Mass Index 34.22 05/28/2025 11:21 AM CDT Plan of Treatment Not on file Medical Devices Explanted Type Area Ingot Passer Device Identifier Shelf Expiration Date Model / Serial / Lot [employer] 6571 Chris Flexi-Stent 7fr 3cm Small Pigtail Flexible .035in Stent - [id number] Implanted:Qty : 1 on 03/31/2020 by Ricky Jeter MD at [facility] Explanted:Qty : 1 on 04/02/2020 by Ricky Jeter MD at [facility] Stent N/A: Pancreas [employer] 09/13/2024 [id number] / / [id number] Conmed Purnima [id number] Ava Viabil 10mm 8.5fr 6cm 200cm Fully Covered Self Expand Pull - [id number] - [id number] Implanted:Qty : 1 on 03/31/2020 by Ricky Jeter MD at [facility] Explanted:Qty : 1 on 04/02/2020 by Ricky Jeter MD at [facility] Stent N/A: Bile Duct Conmed Purnima 12/20/2022 [id number] / [id number] / Insurance MEDICARE MEDICARE PENDING SALE TO [facility] MEDICARE [facility] MEDICARE SUPPLEMENT Advance Directives For more information, please contact: [phone] * Full Code (Latest Code Status on File) Date Activated Date Inactivated Comments 03/31/2020 8:47 AM 04/02/2020 5:04 PM Care Teams Honing Machine Operator Production Relationship Specialty Start Date End Date Janeth Viramontes MD [address] [place], [place] [id number] PCP - General 09/16/11
--- OUTSIDE RECORDS SUMMARY | 2025-05-30 07:42 | XMS_ITS | Clinical Summary ---
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 DISSOLVE ONE [...] (04/01/2020): Added automatically from request for surgery [id number] Palpitations 01/09/2020 Chronic fatigue 01/09/2020 Preoperative cardiovascular examination 07/04/20 19 OWENS (dyspnea on exertion) 04/20/2018 Orthostatic hypotension 10/19/2016 Overview (02/18/2017): Orthostatic hypotension 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 (02/18/2017): Coronary vasospasm Thoracic back pain 12/29/2015 Overview (02/18/2017): Thoracic back pain, unspecified back pain laterality Coronary arteriosclerosis in mohegan artery 11/04 Overview (02/18/2017): Coronary artery disease involving mohegan coronary artery of mohegan heart with other form of angina pectoris Left ventricular dilatation 11/04/2015 Overview (02/18/2017): LVE (left ventricular enlargement) Coronary artery disease invo lving mohegan coronary artery of mohegan heart with angina pectoris with documented spasm [...] Description 05/28/2025 11:30 AM CDT Office Visit [facility] Cardiology [address] [place] [address] Christine Mendoza NP Essential hypertension (Primary Dx); 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 from Last 3 Months Surgical History Surgery Date Site/Laterality Comments APPENDECTOMY CATARACT EXTRACTION CHOLECYSTECTOMY HYSTERECTOMY SPINE SURGERY ERCP UPPER GASTROINTESTINAL ENDOSCOPY JOINT REPLACEMENT Medical History Medical History Date Comments Coronary artery spasm Dyslipidemia Hypertension GERD (gastroesophageal reflux disease) Anxiety Heart disease Thyroid disease Cataract Arthritis Sleep apnea Asthma Family History Medical History Relation Name Comments Heart attack Brother Ji Underwood Heart disease Brother Ji Underwood Hypertension Brother Ji Underwood COPD Father Taye Carreonch Cancer Father Taye Latch Heart failure Father Taye Underwood Congestive he art failure; Hypertension Father Taye Underwood Vision loss Father Taye Underwood Alzheimer's disease Mother Aydee Latch Heart attack Mother Aydee Latch Heart disease Mother Aydee Underwood Heart failure [...] on file Legal Sex Female 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 Gender Identity Female 05/06/2020 3:45 PM CDT Sexual Orientation Straight 01/31/2020 9: 43 AM CDT Obstetrics History Last Filed Vital Signs Vital Sign Reading Time Taken Comments Blood Pressure 150/82 05/28/2025 11:21 AM CDT Pulse 70 05/28/2025 11:21 AM CDT Temperature 36.8 C (98.3 F) 04/02/2020 12:00 PM CDT Respiratory Rate 16 11/10/2021 9:02 AM 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 Oxygen Saturation 98% 05/28/2025 11:21 AM CDT Inhaled Oxygen Concentration - - Weight 96.2 kg (212 lb) 05/28/2025 11:21 AM CDT Height 167.6 cm (5' 6) 05/28/2025 11:21 AM CDT Body Mass Index 34.22 05/28/2025 11:21 AM CDT Plan of Treatment Health Maintenance Due Date Last Done Comments Hepatitis C Screening 1945 Osteoporosis Screening-Bone Density Scan 1945 DTaP/Tdap/Td Vaccine (1 - Tdap) 1958 Hepatitis B Screening 1965 Zoster Vaccine (1 of 2) 1997 Well Visit 65+ 2012 Depression Screening 02/12/2021 02/13/2020, 02/13/20 20 Fall Risk Assessment 04/02/2021 04/02/2020 Covid-19 Vaccine (2023-2 5 season) 2024 08/14/2021, 01/23/2021, 01/02/2021 Influenza Vaccine (#1) 2025 , 07/18/2020, 08/01/2019, Additional history exists Pneumococcal vaccine 65+ Completed 021, 10/13/2015, 10/24/2012, Additional history exists Medical Devices Explanted Type Area Tower Foreman Device Identifier Shelf Expiration Date Model / Serial / Lot [employer] 6571 Chris Flexi-Stent 7fr 3cm Small Pigtail Flexible .035in Stent - [id number] Implanted:Qty : 1 on 03/31/2020 by Ricky Jeter MD at [facility] Explanted:Qty : 1 on 04/02/2020 by Ricky Jeter MD at [facility] Stent N/A: Pancreas [employer] 09/13/2024 [id number] / / [id number] Conmed Purnima [id number] Mccomb Viabil 10mm 8.5fr 6cm 200cm Fully Covered Self Expand Pull - [id number] - [id number] Implanted:Qty : 1 on 03/31/2020 by Ricky Jeter MD at [facility] Explanted:Qty : 1 on 04/02/2020 by Ricky Jeter MD at [facility] Stent N/A: Bile Duct Conmed Purnima 12/20/2022 [id number] / [id number] / Insurance MEDICARE MEDICARE [facility] MEDICARE BLUE CROSS MEDICARE SUPPLEMENT Advance Directives For more information, please contact: [phone] * Full Code (Latest Code Status on File) Date Activated Date Inactivated Comments 03/31/2020 8:47 AM 04/02/2020 5:04 PM Care Teams Linen Aide Relationship Specialty Start Date End Date Janeth Viramontes MD [address] [place] [address] PCP - General 09/16/11
--- OUTSIDE RECORDS SUMMARY | 2025-05-30 07:42 | XMS_ITS | Data Portability ---
Author Organization [place] [facility] [employer], Main Office Address [address] [place] [address] Care Team Providers Care Film Archivist Name Role Phone RUBENS MONTOYA Primary Care Provider [phone] RUBENS MONTOYA Referring Provider [phone] Assessment Encounter Date Assessment Date Assessment LastModified [...] more than half the time spent in msps-do-horo care. Not available 03/16/2023 10:23:27 04/07/2023 04/07/2023 [...] recommended that she take Citracal +D to [place] tablets a day in the time being. [...] than half of this time spent in uqds-wj-dhtd care. Not available 04/07/2023 19:53:25 04/22/2023 04/22/2023 [...] patient more than half of this in kuij-fg-bcbt conversation Not available 04/22/2023 13:40:48 05/11/2023 05/11/2023 [...] patient more than half of this in htgt-or-uvyk conversation Not available 05/11/2023 10:09:34 06/03/2023 06/03/2023 [...] patient more than half of this in fahv-hi-pxpd conversation Not available 06/03/2023 11:06:01 Plan of Treatment Reminders Order Date Submit Date Provider Last Modified By Organization Details Last Modified Time Details Appointments None recorded. Lab None recorded. Referral physical therapist referral - see attached order- please schedule pt 2022 023 [email or web address] [facility], [address] [place], [address], 3 14:21:10 Procedures injection/a spiration joint/bursa (PROC) - in office procedure, administere d by provider 2022 023 [email or web address] In-Office Order, Internal Use Only DO Not Attach Compendium DO Not Attach Compendium, Do Not Delete/merge, [id number] 3 09:57:30 Surgeries None recorded. Imaging XR, shoulder 2022 023 [facility] [place], [address], [place], [address], 3 11:30:58 XR, shoulder 2022 023 [facility] [place], [address], [place], [address], 3 13:10:33 XR, elbow 2022 023 [email or web address] [facility] [place], [address], [place], [address], 3 13:52:51 XR, shoulder 2022 023 [facility] [place], [address], [place], [address], 3 12:30:32 XR, wrist 2022 023 [email or web address] [facility] [place], [address], [place], [address], 3 13:52:51 Medication Orders Kenalog 10 mg/mL suspension for injection [email or web address] [facility], [address] [place], [address], 13:10:33 ropivacaine (PF) 5 mg/mL (0.5 %) injection solution 2022 023 [facility], [address] [place], [address], 13:10:33 Patient TargetsNo targets recorded. Patient InstructionsNo [...] No observ ation record ed. [facility] [place] [address], [place], [address], 04/22/2023 13:39:16 04/22/20 XR, wrist No observ ation record ed. [facility] [place] [address], [place], [address], 04/22/2023 13:38:39 04/22/20 23 XR, elbow No observ ation record ed. [facility] [place] [address], [address], 04/22/2023 13:38:16 05/11/20 23 XR, shoul janet No observ ation record ed. [facility] [place] [address], [address], 05/11/2023 10:06:48 06/03/20 23 XR, shoul janet No observ ation record ed. [facility] [place] [address], [address], 06/03/2023 11:03:45 Result Notes None recorded. Problems Name Problem SNOMED Code Status Onset Date Resolution Date Notes Provider Name and Address Organization Details Recorded Time Enthesopat hy of hip region 59444537 Active Not Available [facility] 3 00:55:20 Osteoarthr itis 947754384 Active Not Available [facility] 3 00:55:20 Stable angina 738044141 Active 2018 Not Available [facility] 3 00:55:20 Osteoarthr itis of left knee joint 2059354072434 09 Active 2018 Not Available [facility] 3 00:55:20 History of total knee arthroplas ty 8093964223764 Active 2021 Not Available [facility] 3 00:55:20 Pain of left shoulder joint 3359913290973 9109 Active 2021 Not Available [facility] 3 00:55:20 Pain of left hip joint 3217907410818 00 Active 2022 FREDERICK Mobley, [facility] [employer] [facility] 3 10:18:52 Pain of right shoulder joint 7190464574970 9100 Active 2022 FREDERICK Mobley, [facility] 3 10:19:32 Partial thickness rotator cuff tear 970292285 Active 2022 FREDERICK Mobley null, [facility] 3 09:54:19 Vitamin D deficiency 63068177 Active 2022 Nava Jose, THIRD RAIL INSTALLER null, [facility] 3 13:32:39 Closed fracture of upper end of humerus 09879239 Active 2022 Karlie Randall RMStephanie null, [facility] 3 12:06:45 Pain of left elbow joint 4905963725115 9104 Active 2022 FREDERICK Mobley null, [facility] 3 12:07:11 Pain of left wrist 4893978461830 02 Active 2022 FREDERICK Mobley, [facility] 3 12:53:17 Problem Notes None recorded. Medical Equipment None Reported. Allergies Allergen ID Allergen Name Allergen Category Reaction Reaction Severity Criticality Documentation Date Start Date Code Code System Note Provider Name and Address Organization Details Recorded Time 1368 latex environme nt,medica tion rash Not available Not available 01/12/2023 59568 91 RxNorm BLIST ERS Not Available [facility] 3 01:02:40 1369 bacitraci n medicatio n Not available Not available Not available 01/12/20232018 1291 RxNorm cause d infec teed 2nd degre e no rash or sob Not Available [facility] 3 01:02:40 Medications Name Sig Start Date [...] in office 2022 active [facility]: 0003- 0494- 20 Not Available Not Available [...] the provider 06/12 completed [facility]: 0409- 4276- 17 Not Available Not Available [...] in office 2022 active [facility] 37133 -064- 01 Not Available Not Available Not [...] cm Karlie Randall [facility] [employer] [facility] 03/16/2023 09:52:09 Date Recorded Body height Provider Name an d Address Organization Details Last Updated DateTime 04/07/2023 162.56 cm Karlie Randall [facility] [employer] [facility] [employer] [facility] 04/07/2023 12:22:07 Date Recorded Body height Provider Name an d Address Organization Details Last Updated DateTime 04/22/2023 162.56 cm Karlie Randall [facility] [employer] [facility] [employer] [facility] 04/22/2023 12:04:48 Date Recorded Body height Provider Name an d Address Organization Details Last Updated DateTime 05/11/2023 162.56 cm Karlie Randall [facility] [employer] [facility] 05/11/2023 09:04:41 Date Recorded Body height Provider Name an d Address Organization Details Last Updated DateTime 06/03/2023 162.56 cm Karlie Randall [facility] [employer] [facility] [employer] [facility] 06/03/2023 10:23:22 Social History None recorded. Functional Status Question Answer Note LastModified by Organizat ion Details LastModified Time What is your level of alcohol consumption? Occasional [id number] Information not available 01/12/2023 Mental Status None recorded. Family History Relationship Description Onset Age of this Age Resolved Age Notes LastModified by Organization Details LastModified Time Father Heart disease [id number] Not available 01/12/2023 00:49:06 Father Hypertensive disorder [id number].126 [id number] Not available 01/12/2023 00:49:06 Mother Heart disease [id number].127 [id number] Not available 01/12/2023 00:49:06 Mother Hypertensive disorder [id number] [id number] Not available 01/12/2023 00:49:06 Brother Heart disease [id number].803 [id number] Not available 01/12/2023 00:49:06 Medical History Condition [...] HAVE YOU BEEN HOSPITALIZED OR SEEN IN [facility] IN THE PAST YEAR ? N BURSITIS [...] SNOMED-CT Code Diagnosis ICD10 Code Diagnosis Note [id number] Aydin Pritchard MD [facility] [address] [place] [address] 01/12/2021 00:00:00 01/12/2021 14:46:55 [id number] MD SALO [facility] [place] [address] [place] [address] 01/26/2021 00:00:00 01/26/2021 15:38:38 [id number] MD CHANDU [facility] [place] [address] [place] [address] 04/03/2021 00:00:00 04/03/2021 09:59:55 [id number] MD SALO [facility] [place] [address] [place] [address] 05/01/2021 00:00:00 05/01/2021 09:14:43 [id number] MD SALO [facility] [address] [place] [address] 06/04/2021 00:00:00 06/04/2021 11:10:45 [id number] MD SALO [facility] [place] [address] [place] [address] 06/12/2021 00:00:00 06/13/2021 12:11:52 [id number] MD CHANDU [facility] [place] [address] [place] [address] 07/10/2021 00:00:00 07/10/2021 09:44:19 [id number] Aydin Pritchard MD [facility] [place] [address] [place] [address] 07/24/2021 00:00:00 07/24/2021 12:01:16 [id number] MD SALO [facility] [place] [address] [place] [address] 01/01/2022 00:00:00 01/01/2022 10:41:38 [id number] MD CHANDU [facility] [place] [address] [place] [address] 04/16/2022 00:00:00 04/16/2022 09:57:05 [id number] ROSALIA Owens [facility] [place] [address] [place] [address] 04/30/2022 00:00:00 04/30/2022 09:18:47 [id number] Aydin Pritchard MD [facility] [address] 02/03/2023 09:59:49 02/03/2023 11:15:08 Pain of right shoulder joint 8120891401 3299387 M25.511 [id number] Aydin Pritchard MD [facility] [place] [address] [place] [address] 03/16/2023 09:46:32 03/16/2023 10:51:04 Partial thickness rotator cuff tear 245037386 M75.101 [id number] Aydin Pritchard MD [facility]_[address] [address] 04/07/2023 12:05:17 04/08/2023 09:46:52 Pain of left shoulder joint 3721655352 7818001 M25.512 [id number] Aydin Pritchard MD [facility] [place] [address] [place] [address] 04/22/2023 11:58:33 04/22/2023 13:52:51 Closed fracture of upper end of humerus 18290329 S42.D Pain of le ft elbow joint 7913573374 2226447 M25.522 Pain of left wrist 69516 67389 89326 M25.532 [id number] Aydin Pritchard MD [facility] [place] [address] [place] [address] 05/11/2023 09:00:00 05/11/2023 10:14:12 Closed fracture of upper end of humerus 90660936 S42.202D Pain of ri ght shoulder joint 4312811254 3419118 M25.511 [id number] Aydin Pritchard MD [facility] [place] [address] [address] [address] [place] [address] 06/03/2023 10:10:44 06/03/2023 11:23:28 Closed fracture of upper end of humerus 99592082 [facility] Health Concerns Section Related Observation LastModified by Organization Detai ls LastModified Time None Recorded Concern Status LastModified by Organization Details LastModified Time None Recorded Advance Directives Directive None Recorded Payers Insurance Date Sequence Insurance Name Policy Number Policy Ba Covered Member ID Ba Member ID Guarantor Name 05/31/2023 1 [place] Betzy Palomino Reddo [id number] Betzy Palomion Reddo 06/09/2023 2 [place] [id number] Betzy Palomino Reddo [id number] Betzy Palomino Reddo 05/31/2023 [employer] - DMEPOS ASSIGNED (MEDICARE [facility] B) Betzy Palomino Reddo [id number] Betzy Paloimno Reddo Notes Date Note Type Note Provider [...] with supraspinatus insertional disease. Aydin Pritchard MD [address] [place] [address], [place] [address], [place], [address], [place] [facility] [place] [employer] [facility] 04/07/2023 19:53:42 OBGyn Episode No OBEpisode recorded.
[2025-05-30 08:41] LABS: Anion Gap 3 mmol/L (4-12); Blood Urea Nitrogen 16 mg/dL (7-17); Calcium 9.4 mg/dL (8.4-10.2); Carbon Dioxide 31 mmol/L (22-30); Chloride 105 mmol/L (98-107); Estimated Glomerular Filt Rate 46; Glucose 70 mg/dL (65-110); Osmolality Calculated 287 mOsm/kg (285-295); Potassium 4.8 mmol/L (3.4-5.0); Sodium 139 mmol/L (137-145)
== END 2025-05-30 07:39 | disposition home or self-care (01) ==
LOC: CHSLAB 07:40
PROVIDERS: PCP Internal Medicine; Visit Provider Internal Medicine
DX: I10 Essential (primary) hypertension (principal)
CPT/HCPCS: 36415; 80048

== ENCOUNTER 2025-09-23 07:51 | Outpatient (CLI) | payer MEDICARE, SELFPAY ==
--- OUTSIDE RECORDS SUMMARY | 2025-08-12 04:00 | XMS_ITS ---
Author Organization [facility] Address [address] [place], [place] [id number] Care Team Providers Care Aoc Aadc Operations Staff Officer Name Role Phone LISA BUTLER Unavailable [phone] Janeth Viramontes Unavailable Unavailable Allergies Allergen (clinical [...] Duration) Notes Start Date End Date Status amlodipine 10 MG Oral Tablet ORAL amlodipine 10 MG Oral TabletOriginal Medicationamlodipine 10 MG Oral Tablet *Reorder from [employer] for eRx and Interaction Alerts* 0 Active Lisinopril 10 MG Oral Tablet ORAL lisinopril 10 MG Oral TabletOriginal Medicationlisinopril 10 MG Oral Tablet *Reorder from [employer] for eRx and Interaction Alerts* 0 Active 12 HR ranolazine 1000 MG Extended Release Oral Tablet [Ranexa] ORAL 12 HR ranolazine 1000 MG Extended Release Oral Tablet [Ranexa]Original [id number] HR ranolazine 1000 MG Extended Release Oral Tablet [Ranexa] *Reorder from [employer] for eRx and Interaction Alerts* 6 Active Famotidine 20 MG Oral Tablet ORAL famotidine 20 MG Oral TabletOriginal Medicationfamotidine 20 MG Oral Tablet *Reorder from [facility] for eRx and Interaction Alerts* 0 Active Isosorbide Mononitrate 20 MG Oral Tablet ORAL isosorbide mononitrate 20 MG Oral TabletOriginal Medicationisosorbide mononitrate 20 MG Oral Tablet *Reorder from [facility] for eRx and Interaction Alerts* 0 Active Potassium Chloride A ctive urea 400 MG/ML Topical Cream CUTANEOUS urea 400 MG/ML Topical CreamOriginal Medicationurea 400 MG/ML Topical Cream *Reorder from [facility] for eRx and Interaction Alerts* 3 Active Furosemide 40 MG Oral Tablet ORAL furosemide 40 MG Oral TabletOriginal Medicationfurosemide 40 MG Oral Tablet *Reorder from [facility] for eRx and Interaction Alerts* 0 Active Medrol Dosepak ORAL Medrol DosepakOr iginal MedicationMedrol Dosepak *Reorder from [facility] for eRx and Interaction Alerts* 3 Active pantoprazole 40 MG Delayed Release Oral Tablet ORAL pantoprazole 40 MG Delayed Release Oral TabletOriginal Medicationpantoprazole 40 MG Delayed Release Oral Tablet *Reorder from [facility] for eRx and Interaction Alerts* 0 Active levothyroxine sodium 0.2 MG Oral Tablet ORAL levothyroxine sodium 0.2 MG Oral TabletOriginal Medicationlevothyroxine sodium 0.2 MG Oral Tablet *Reorder from [facility] for eRx and Interaction Alerts* 0 Active ciclopirox 80 MG/ML Topical Solution ciclopirox 80 MG/ML Topical SolutionOriginal Medicationciclopirox 80 MG/ML Topical Solution *[facility] and Interaction Alerts* 7 Active calcium carbonate 600 MG / cholecalciferol 125 UNT Oral Tablet ORAL calcium carbonate 600 MG / cholecalciferol 125 UNT Oral TabletOriginal Medicationcalcium carbonate 600 MG / cholecalciferol 125 UNT Oral Tablet *Reorder from [facility] for eRx and Interaction Alerts* 6 Active ipratropium bromide 0.042 MG/ACTUAT Metered Dose Nasal [place] ipratropium bromide 0.042 MG/ACTUAT Metered Dose Nasal SprayOriginal Medicationipratropium bromide 0.042 MG/ACTUAT Metered Dose Nasal [place] *Reorder from [employer] for eRx and Interaction Alerts* 0 Active clotrimazole 10 MG/ML Topical Solution CUTANEOUS clotrimazole 10 MG/ML Topical SolutionOriginal Medicationclotrimazole 10 MG/ML Topical Solution *Reorder from [employer] for eRx and Interaction Alerts* 4 Active aspirin 81 MG Delayed Release Oral Tablet ORAL aspirin 81 MG Delayed Release Oral TabletOriginal Medicationaspirin 81 MG Delayed Release Oral Tablet *Reorder from [employer] for eRx and Interaction Alerts* 6 Active Social History Social History Additional Details Category Social Info Options Details Migrated Social History Migrated Social History Alcohol intake : , History of tobacco use : , Smoking Status : Never smoked Vital Signs Height 68.00 in 08/12/2025 Weight 185 lbs 08/12/2025 BMI 28.13 kg/m2 08/12/2025 Height-cm 172.72 cm 08/12/2025 Weight-kg 83.92 kg 08/12/2025 Encounters Encounter Location Date Provider Diagnosis [facility] [address] [place] [id number] 08/12/2025 LISA SNOOK Tinea unguium B35.1 ; Pain in right foot M79.671 ; Pain in left foot M79.672 ; Atherosclerosis of [place] arteries of extremities with intermittent claudication, bilateral legs I70.213 and Acquired keratosis [keratoderma] palmaris et plantaris L85.1 Assessments Encounter Date Diagnosis (ICD Code) Assessment Notes Treatment Notes Treatment Clinical Notes Section Notes 08/12/2025 Tinea unguium (ICD-10 - B35.1) Nails 1-5 Bilateral were debrided extensively with nail nippers and emery board, reducing length and girth to pink healthy tissue with any subungual debris and necrotic tissue removed 08/12/2025 Pain in right foot (ICD-10 - M79.671) 08/12/2025 Pain in left foot (ICD-10 - M79.672) 08/12/2025 Atherosclerosis of [place] arteries of extremities with intermittent claudication, bilateral legs (ICD-10 - I70.213) 08/12/2025 Acquired keratosis [keratoderma] palmaris et plantaris (ICD-10 [...] Foot care, sooner if problems develop. Provider Name:REMY AYALA, 10/17/2025 10:40:00 AM, [address] [place] [address], [id number], History and Physical Notes * HPI (History [...] Date last seen by Dr. Viramontes was 05/2025., Initials nd Examination Category Sub-Category Detail Notes Category Not es Dermatologic Skin findings: Skin is thin, at rophic and lacking pedal hair Nail pathology: Nails 1, 2, 3, 4, an d 5 bilateral are elongated, thick, discolored, and dystrophic with subungual debris. They are painful to palpation Hypertrophic / hyperkeratotic lesion: pl wolf aspect of the left and right 5th metatarsal head Neurologic Gross sensation Gross sensation is intact [...] well developed, well groomed and well nourished Progress Notes * FREDDIE MARTÍNEZ SDOB:[birth year] (80 yo F)Acc No.[id number]:08/12/2025 Patient: FREDDIE QUARLES Provider: Ramirez Butler DPM :1945 A ge:79 Y S ex:Female Date:08/12/2025 Address:[address] [place] [address] Subjective: * Chief Complaints: * Adithya olivera [...] Date last seen by Dr. Viramontes was 05/2025., Initials nd. * Medical History: Denies Past Medical History No Medical History Documented Medical History Verified * Surgical History: Denies Past Surgical History. Surgical History verified. * Hospitalization/Major Diagno stic Procedure: Denies Past Hospitalization. Hospitalization Verified. * Family History: F ather: PRN - [...] yrs,,known absent , :: Hypertension,,known absent . F amily History Verified..? * Social History: M igrated Social History: M igrated Social History: Alcohol intake : , History of tobacco use : , Smoking Status : Never smoked. Social History Verified. * Medications: T akingPotassium Chloride Furosemide 40 MG Oral Tablet ORAL , Notes to Pharmacist: furosemide 40 MG Oral TabletOriginal Medicationfurosemide 40 MG Oral Tablet *Reorder from [facility] for eRx and Interaction Alerts*Famotidine 20 MG Oral Tablet ORAL , Notes to Pharmacist: famotidine 20 MG Oral TabletOriginal Medicationfamotidine 20 MG Oral Tablet *Reorder from [facility] for eRx and Interaction Alerts*Isosorbide Mononitrate 20 MG Oral Tablet ORAL , Notes to Pharmacist: isosorbide mononitrate 20 MG Oral TabletOriginal Medicationisosorbide mononitrate 20 MG Oral Tablet *Reorder from [facility] for eRx and Interaction Alerts*Lisinopril 10 MG Oral Tablet ORAL , Notes to Pharmacist: lisinopril 10 MG Oral TabletOriginal Medicationlisinopril 10 MG Oral Tablet *Reorder from [facility] for eRx and Interaction Alerts*12 HR ranolazine 1000 MG Extended Release Oral Tablet [Ranexa] ORAL , Notes to Pharmacist: 12 HR ranolazine 1000 MG Extended Release Oral Tablet [Ranexa]Original [id number] HR ranolazine 1000 MG Extended Release Oral Tablet [Ranexa] *Reorder from [facility] for eRx and Interaction Alerts*amlodipine 10 MG Oral Tablet ORAL , Notes to Pharmacist: amlodipine 10 MG Oral TabletOriginal Medicationamlodipine 10 MG Oral Tablet *Reorder from [facility] for eRx and Interaction Alerts*aspirin 81 MG Delayed Release Oral Tablet ORAL , Notes to Pharmacist: aspirin 81 MG Delayed Release Oral TabletOriginal Medicationaspirin 81 MG Delayed Release Oral Tablet *Reorder from [facility] for eRx and Interaction Alerts*calcium carbonate 600 MG / cholecalciferol 125 UNT Oral Tablet ORAL , Notes to Pharmacist: calcium carbonate 600 MG / cholecalciferol 125 UNT Oral TabletOriginal Medicationcalcium carbonate 600 MG / cholecalciferol 125 UNT Oral Tablet *Reorder from [facility] for eRx and Interaction Alerts*ciclopirox 80 MG/ML Topical Solution , Notes to Pharmacist: ciclopirox 80 MG/ML Topical SolutionOriginal Medicationciclopirox 80 MG/ML Topical Solution *Reorder from [facility] for eRx and Interaction Alerts*clotrimazole 10 MG/ML Topical Solution CUTANEOUS , Notes to Pharmacist: clotrimazole 10 MG/ML Topical SolutionOriginal Medicationclotrimazole 10 MG/ML Topical Solution *Reorder from [facility] for eRx and Interaction Alerts*ipratropium bromide 0.042 MG/ACTUAT Metered Dose Nasal [place] , Notes to Pharmacist: ipratropium bromide 0.042 MG/ACTUAT Metered Dose Nasal SprayOriginal Medicationipratropium bromide 0.042 MG/ACTUAT Metered Dose Nasal [place] *Reorder from [facility] for eRx and Interaction Alerts*levothyroxine sodium 0.2 MG Oral Tablet ORAL , Notes to Pharmacist: levothyroxine sodium 0.2 MG Oral TabletOriginal Medicationlevothyroxine sodium 0.2 MG Oral Tablet *Reorder from [facility] for eRx and Interaction Alerts*Medrol Dosepak ORAL , Notes to Pharmacist: Medrol DosepakOriginal MedicationMedrol Dosepak *Reorder from [facility] for eRx and Interaction Alerts*pantoprazole 40 MG Delayed Release Oral Tablet ORAL , Notes to Pharmacist: pantoprazole 40 MG Delayed Release Oral TabletOriginal Medicationpantoprazole 40 MG Delayed Release Oral Tablet *Reorder from [facility] for eRx and Interaction Alerts*urea 400 MG/ML Topical Cream CUTANEOUS , Notes to Pharmacist: urea 400 MG/ML Topical CreamOriginal Medicationurea 400 MG/ML Topical Cream *Reorder from [facility] for eRx and Interaction Alerts*Medication List reviewed and reconciled with the patientTaking Potassium Chloride Taking Furosemide 40 MG Oral Tablet ORAL , Notes to Pharmacist: furosemide 40 MG Oral TabletOriginal Medicationfurosemide 40 MG Oral Tablet *Reorder from [facility] for eRx and Interaction Alerts*Taking Famotidine 20 MG Oral Tablet ORAL , Notes to Pharmacist: famotidine 20 MG Oral TabletOriginal Medicationfamotidine 20 MG Oral Tablet *Reorder from [facility] for eRx and Interaction Alerts*Taking Isosorbide Mononitrate 20 MG Oral Tablet ORAL , Notes to Pharmacist: isosorbide mononitrate 20 MG Oral TabletOriginal Medicationisosorbide mononitrate 20 MG Oral Tablet *Reorder from [facility] for eRx and Interaction Alerts*Taking Lisinopril 10 MG Oral Tablet ORAL , Notes to Pharmacist: lisinopril 10 MG Oral TabletOriginal Medicationlisinopril 10 MG Oral Tablet *Reorder from [facility] for eRx and Interaction Alerts*Taking 12 HR ranolazine 1000 MG Extended Release Oral Tablet [Ranexa] ORAL , Notes to Pharmacist: 12 HR ranolazine 1000 MG Extended Release Oral Tablet [Ranexa]Original [id number] HR ranolazine 1000 MG Extended Release Oral Tablet [Ranexa] *Reorder from [facility] for eRx and Interaction Alerts*Taking amlodipine 10 MG Oral Tablet ORAL , Notes to Pharmacist: amlodipine 10 MG Oral TabletOriginal Medicationamlodipine 10 MG Oral Tablet *Reorder from [facility] for eRx and Interaction Alerts*Taking aspirin 81 MG Delayed Release Oral Tablet ORAL , Notes to Pharmacist: aspirin 81 MG Delayed Release Oral TabletOriginal Medicationaspirin 81 MG Delayed Release Oral Tablet *Reorder from [facility] for eRx and Interaction Alerts*Taking calcium carbonate 600 MG / cholecalciferol 125 UNT Oral Tablet ORAL , Notes to Pharmacist: calcium carbonate 600 MG / cholecalciferol 125 UNT Oral TabletOriginal Medicationcalcium carbonate 600 MG / cholecalciferol 125 UNT Oral Tablet *Reorder from [facility] for eRx and Interaction Alerts*Taking ciclopirox 80 MG/ML Topical Solution , Notes to Pharmacist: ciclopirox 80 MG/ML Topical SolutionOriginal Medicationciclopirox 80 MG/ML Topical Solution *Reorder from [facility] for eRx and Interaction Alerts*Taking clotrimazole 10 MG/ML Topical Solution CUTANEOUS , Notes to Pharmacist: clotrimazole 10 MG/ML Topical SolutionOriginal Medicationclotrimazole 10 MG/ML Topical Solution *Reorder from [facility] for eRx and Interaction Alerts*Taking ipratropium bromide 0.042 MG/ACTUAT Metered Dose Nasal [place] , Notes to Pharmacist: ipratropium bromide 0.042 MG/ACTUAT Metered Dose Nasal SprayOriginal Medicationipratropium bromide 0.042 MG/ACTUAT Metered Dose Nasal [place] *Reorder from [facility] for eRx and Interaction Alerts*Taking levothyroxine sodium 0.2 MG Oral Tablet ORAL , Notes to Pharmacist: levothyroxine sodium 0.2 MG Oral TabletOriginal Medicationlevothyroxine sodium 0.2 MG Oral Tablet *Reorder from [facility] for eRx and Interaction Alerts*Taking Medrol Dosepak ORAL , Notes to Pharmacist: Medrol DosepakOriginal MedicationMedrol Dosepak *Reorder from [facility] for eRx and Interaction Alerts*Taking pantoprazole 40 MG Delayed Release Oral Tablet ORAL , Notes to Pharmacist: pantoprazole 40 MG Delayed Release Oral TabletOriginal Medicationpantoprazole 40 MG Delayed Release Oral Tablet *Reorder from [facility] for eRx and Interaction Alerts*Taking urea 400 MG/ML Topical Cream CUTANEOUS , Notes to Pharmacist: urea 400 MG/ML Topical CreamOriginal Medicationurea 400 MG/ML Topical Cream *Reorder from [facility] for eRx and Interaction Alerts*Medication List reviewed and reconciled with the patient * Allergies: D uricef: Allergy - Onset Date 09/04/2012actroban: Allergy - Onset Date 12/13/2014Latex: Allergy - Onset Date 12/16/2014TapeyesAllergies Verified. Objective: * Vitals: W t: 185 lbs, Wt-k.92 kg, Ht: 68.00 in, Ht-cm: 172.72 cm, BMI: 28.13 Index, Body Surface Area: 2. * Examination: C onstitutional: Constitutional T he patient is awake, alert, well developed, well groomed and well nourished. D ermatologic: Skin findings: S kin is thin, atrophic and lacking pedal hair. Hypertrophic / hyperkeratotic lesion: p lantar aspect of the left and right 5th metatarsal head. Nail pathology: N ails 1, 2, 3, [...] - M79.672 4 . A therosclerosis of [place] arteries of extremities with intermittent claudication, bilateral [...] SKIN LESIONS, 2 TO 4, Modifiers: Q8 23453 DEBRIDE NAIL, 6 OR MORE, Modifiers: 59 , Q8 * Follow Up: 1 0 - 12 weeks (Reason: At-Risk Foot care, sooner if problems develop.) Billing Information: * Procedure Codes: 82826 TRIM SKIN LESIONS, 2 TO 4. Modifiers: Q8 84445 DEBRIDE NAIL, 6 OR MORE. Modifiers: 59, Q8 * Electronic signature of LISA BUTLER DPM on 09/23/2025 at 07:58 AM BRAKE PRESS OPERATOR Sign off status: Pending * Provider: Ramirez Butler DPM Date: 0 08/12/2025 Generated for Santi torres/Milton/Kelton on: 1 11/23/2024 07:58 AM BRAKE PRESS OPERATOR
--- OUTSIDE RECORDS SUMMARY | 2025-09-23 07:58 | XMS_ITS | Encounter Summary ---
Author Organization [facility] Healthcare Address [address] [place] [address] Care Team Providers Care Monument Carver Name Role Phone Janeth Viramontes MD Primary Care Provider [phone] Encounter Details Date Type Department Care Team (Late st Contact Info) Description 04/20/2025 Orders Only [facility] Information Management [address] [place] [address] Scanning, Provider Social History Tobacco Use Types Packs/Day Years Used Date Smoking Tobacco: Never Cigarettes Smokeless Tobacco: Never Alcohol Use Standard Drinks/Week Comments No 0 (1 standard drink = 0.6 oz pur e alcohol) PHQ-2 Answer Date Recorded PHQ-2 Total Score (If total score is 3 or more points, staff should administer the PHQ-9) 0 03/31/2020 Comments No Sex and Gender Information Value Date Recorded Sex Assigned at Not on file Legal Sex Female 3:37 PM ASSOCIATE PROGRAM MANAGER Gender Identity Female 05/06/2020 3:45 PM CDT Sexual Orientation Straight 01/31/2020 9: 43 AM CDT documented as of this encounter Plan of Treatment Not on file documented as of this encounter Procedures Procedure Name Priority Date/Time Associated Diagnosis Comments SCAN - LABS 04/20/2025 documented in this encounter Results * SCAN - LABS (04/20/2025) us Provider Scanning Final Result documented in this encounter Visit Diagnoses Not on filedocumented in this encounter Care Teams Monument Carver Relationship Specialty Start Date End Date Janeth Viramontes MD [address], [place] [phone] PCP - General 09/16/11 documented as of this encounter
--- OUTSIDE RECORDS SUMMARY | 2025-09-23 07:58 | XMS_ITS | Patient Health Record ---
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
--- OUTSIDE RECORDS SUMMARY | 2025-09-23 07:58 | XMS_ITS | Data Portability ---
Author Organization [place] - [facility], Main Office Address [address] [place] [address] Care Team Providers Care Lockstitch Back Maker Name Role Phone RUBENS MONTOYA Primary Care Provider [phone] RUBENS MONTOYA Referring Provider [phone] Assessment Encounter Date Assessment Date Assessment LastModified [...] more than half the time spent in ajaj-fz-gzdg care. Not available 03/16/2023 10:23:27 04/07/2023 04/07/2023 [...] recommended that she take Citracal +D to [place] tablets a day in the time being. [...] than half of this time spent in imbc-at-umby care. Not available 04/07/2023 19:53:25 04/22/2023 04/22/2023 [...] patient more than half of this in vzyq-cs-jjqp conversation Not available 04/22/2023 13:40:48 05/11/2023 05/11/2023 [...] patient more than half of this in jeei-rj-chth conversation Not available 05/11/2023 10:09:34 06/03/2023 06/03/2023 [...] patient more than half of this in sujh-vl-edqw conversation Not available 06/03/2023 11:06:01 Plan of Treatment Reminders Order Date Submit Date Provider Last Modified By Organization Details Last Modified Time Details Appointments None recorded. Lab None recorded. Referral physical therapist referral - see attached order- please schedule pt 2022 023 [email or web address] [facility], [address] [place], [address], 3 14:21:10 Procedures injection/a spiration joint/bursa (PROC) - in office procedure, administere d by provider 2022 023 [email or web address] In-Office Order, Internal Use Only DO Not Attach Compendium DO Not Attach Compendium, Do Not Delete/merge, [id number] 3 09:57:30 Surgeries None recorded. Imaging XR, shoulder 2022 023 [facility] [place], [address], [place], [address], 3 11:30:58 XR, shoulder 2022 023 [facility] [place], [address], [place], [address], 3 13:10:33 XR, elbow 2022 023 [email or web address] [facility] [place], [address], [place], [address], 3 13:52:51 XR, shoulder 2022 023 [facility] [place], [address], [place], [address], 3 12:30:32 XR, wrist 2022 023 [email or web address] [facility] [place], [address], [place], [address], 3 13:52:51 Medication Orders Kenalog 10 mg/mL suspension for injection [email or web address] [facility] [place], [address], 13:10:33 ropivacaine (PF) 5 mg/mL (0.5 %) injection solution 2022 023 [facility], [address] [place], [address], 13:10:33 Patient TargetsNo targets recorded. Patient InstructionsNo [...] No observ ation record ed. [facility] [place] [address], [place], [address], 04/22/2023 13:39:16 04/22/20 XR, wrist No observ ation record ed. [facility] [place] [address], [place], [address], 04/22/2023 13:38:39 04/22/20 23 XR, elbow No observ ation record ed. [facility] [place] [address], [address], 04/22/2023 13:38:16 05/11/20 23 XR, shoul janet No observ ation record ed. [facility] [place] [address], [address], 05/11/2023 10:06:48 06/03/20 23 XR, shoul janet No observ ation record ed. [facility] [place] [address], [address], 06/03/2023 11:03:45 Result Notes None recorded. Problems Name Problem SNOMED Code Status Onset Date Resolution Date Notes Provider Name and Address Organization Details Recorded Time Enthesopat hy of hip region 91214032 Active Not Available [facility] 3 00:55:20 Osteoarthr itis 924331876 Active Not Available [facility] 3 00:55:20 Stable angina 887032709 Active 2018 Not Available [facility] 3 00:55:20 Osteoarthr itis of left knee joint 1990366485495 09 Active 2018 Not Available [facility] 3 00:55:20 History of total knee arthroplas ty 9225890944512 Active 2021 Not Available [facility] 3 00:55:20 Pain of left shoulder joint 8987904707352 9109 Active 2021 Not Available [facility] 3 00:55:20 Pain of left hip joint 4736990045171 00 Active 2022 FREDERICK Mobley, [facility] [employer] [facility] 3 10:18:52 Pain of right shoulder joint 4019992560537 9100 Active 2022 FREDERICK Mobley, [facility] 3 10:19:32 Partial thickness rotator cuff tear 675407984 Active 2022 FREDERICK Mobley null, [facility] 3 09:54:19 Vitamin D deficiency 97049845 Active 2022 Nava Jose, WORD PROCESSING SUPERVISOR null, [facility] 3 13:32:39 Closed fracture of upper end of humerus 74266210 Active 2022 Karlie [place] RMStephanie null, [facility] 3 12:06:45 Pain of left elbow joint 7043903799667 9104 Active 2022 FREDERICK Mobley null, [facility] 3 12:07:11 Pain of left wrist 3303305712149 02 Active 2022 FREDERICK Mobley, [facility] 3 12:53:17 Problem Notes None recorded. Medical Equipment None Reported. Allergies Allergen ID Allergen Name Allergen Category Reaction Reaction Severity Criticality Documentation Date Start Date Code Code System Note Provider Name and Address Organization Details Recorded Time 1368 latex environme nt,medica tion rash Not available Not available 01/12/2023 85157 91 RxNorm BLIST ERS Not Available [facility] 3 01:02:40 1369 bacitraci n medicatio n Not available Not available Not available 01/12/20232018 1291 RxNorm cause d infec teed 2nd degre e no rash or sob Not Available [facility] 3 01:02:40 Medications Name Sig Start Date [...] suspension for injection in office 2022 active [facility]: 0003- 0494- 20 Not Available [...] administe red by the provider 06/12 completed [facility]: 0409- 4276- 17 Not Available [...] %) injection solution in office 2022 active [facility] 75022 -064- 01 Not Available Not Available Not [...] Updated DateTime 03/16/2023 162.56 cm Karlie Randall [facility] [employer] [facility] 03/16/2023 09:52:09 Date Recorded Body height Provider Name an d Address Organization Details Last Updated DateTime 04/07/2023 162.56 cm Karlie Randall [facility] [employer] [facility] [employer] [facility] 04/07/2023 12:22:07 Date Recorded Body height Provider Name an d Address Organization Details Last Updated DateTime 04/22/2023 162.56 cm Karlie Randall [facility] [employer] [facility] 04/22/2023 12:04:48 Date Recorded Body height Provider Name an d Address Organization Details Last Updated DateTime 05/11/2023 162.56 cm Karlie Randall [facility] [employer] [facility] 05/11/2023 09:04:41 Date Recorded Body height Provider Name an d Address Organization Details Last Updated DateTime 06/03/2023 162.56 cm Karlie Randall [facility] [employer] [facility] [employer] [facility] 06/03/2023 10:23:22 Social History None recorded. Functional Status Question Answer Note LastModified by Organizat ion Details LastModified Time What is your level of alcohol consumption? Occasional [id number] Information not available 01/12/2023 Mental Status None recorded. Family History Relationship Description Onset Age of this Age Resolved Age Notes LastModified by Organization Details LastModified Time Father Heart disease [id number] Not available 01/12/2023 00:49:06 Father Hypertensive disorder [id number].065 [id number] Not available 01/12/2023 00:49:06 Mother Heart disease MIGRATION.589 [id number] Not available 01/12/2023 00:49:06 Mother Hypertensive disorder [id number].709 [id number] Not available 01/12/2023 00:49:06 Brother Heart disease MIGRATION.641 [id number] Not available 01/12/2023 00:49:06 Medical History Condition [...] HAVE YOU BEEN HOSPITALIZED OR SEEN IN [facility] IN THE PAST YEAR ? N [...] Diagnosis SNOMED-CT Code Diagnosis ICD10 Code Diagnosis IMO Codes Diagnosis Note [id number] Aydin Pritchard MD [facility] [place] [address] [place] [address] 01/12/2021 00:00:00 01/12/2021 14:46:55 [id number] MD SALO [facility] [place] [address] [place] [address] 01/26/2021 00:00:00 01/26/2021 15:38:38 [id number] MD SALO [facility] [place] [address] [place] [address] 04/03/2021 00:00:00 04/03/2021 09:59:55 [id number] MD SALO [facility] [place] [address] [place] [address] 05/01/2021 00:00:00 05/01/2021 09:14:43 [id number] MD SALO [facility] [address], [address] [place] [address] 06/04/2021 00:00:00 06/04/2021 11:10:45 [id number] MD SALO [facility]es[facility] [place] [address] [place] [address] 06/12/2021 00:00:00 06/13/2021 12:11:52 [id number] MD SALO [facility] [place] [address] [place] [address] 07/10/2021 00:00:00 07/10/2021 09:44:19 [id number] Aydin Pritchard MD [facility] [place] [address] [place] [address] 07/24/2021 00:00:00 07/24/2021 12:01:16 [id number] MD CHANDU [facility] [place] [address] [place] [address] 01/01/2022 00:00:00 01/01/2022 10:41:38 [id number] MD SALO [facility] [place] [address] [place] [address] 04/16/2022 00:00:00 04/16/2022 09:57:05 [id number] ROSALIA Owens [facility] [place] [address] [place] [address] 04/30/2022 00:00:00 04/30/2022 09:18:47 [id number] Aydin Pritchard MD [address] [address] 02/03/2023 09:59:49 02/03/2023 11:15:08 Pain of right shoulder joint 5913383700 0239291 M25.511 [id number] Aydin Pritchard MD [facility] [place] [address] [place] [address] 03/16/2023 09:46:32 03/16/2023 10:51:04 Partial thickness rotator cuff tear 512880330 M75.101 [id number] Aydin Pritchard MD [address] [address] 04/07/2023 12:05:17 04/08/2023 09:46:52 Pain of left shoulder joint 7789872841 6632468 M25.512 [id number] Aydin Pritchard MD [facility] [place] [address] [place] [address] 04/22/2023 11:58:33 04/22/2023 13:52:51 Closed fracture of upper end of humerus 88805320 S42.D Pain of le ft elbow joint 7498783617 3306906 M25.522 Pain of left wrist 93965 84704 46335 M25.532 [id number] Aydin Pritchard MD [facility] [place] [address] [place] [address] 05/11/2023 09:00:00 05/11/2023 10:14:12 Closed fracture of upper end of humerus 40778568 S42.202D Pain of ri ght shoulder joint 3486871554 4301119 M25.511 [id number] Aydin Pritchard MD [facility] [place] [address] [facility] [address] [place] [address] 06/03/2023 10:10:44 06/03/2023 11:23:28 Closed fracture of upper end of humerus 97369569 [facility] Concerns Section Related Observation LastModified by Organization Detai ls LastModified Time None Recorded Concern Status LastModified by Organization Details LastModified Time None Recorded Advance Directives Directive None Recorded Payers Insurance Date Sequence Insurance Name Policy Number Policy Ba Covered Member ID Ba Member ID Guarantor Name 05/31/2023 1 [place] Betzy Palomino Reddo [id number] Betzy Palomino Reddo 06/09/2023 2 [place] [id number] Betzy Palomnio Reddo [id number] Betzy Palomino Reddo 05/31/2023 [employer] - [employer] ASSIGNED (MEDICARE DME REGION B) Betzy Palomino Reddo [id number] Betzy Palomino Reddo Notes Date Note [...] with supraspinatus insertional disease. Aydin Pritchard MD [address] [place] [address], [place] [address], [place], [address], [facility] [employer] [facility] 04/07/2023 19:53:42 OBGyn Episode No OBEpisode recorded.
--- OUTSIDE RECORDS SUMMARY | 2025-09-23 07:58 | XMS_ITS | Encounter Summary ---
Author Organization [facility] Address [address] [place] [address] Care Team Providers Care Administration Internship Name Role Phone Janeth Viramontes MD Primary Care Provider Encounter Details Date Type Department Care Team (Late st Contact Info) Description 05/13/[address] 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 Gender Identity Female 05/06/2020 3:45 PM CDT Sexual Orientation Straight 01/31/2020 9: 43 AM CDT documented as of this encounter Plan of Treatment Not on file documented as of this encounter Procedures Procedure Name Priority Date/Time Associated Diagnosis Comments SCAN - RADIOLOGY/IMAGING 05/13/2025 documented in this encounter Results * SCAN - RADIOLOGY/IMAGING (05/13/2025) Anatomical Region Laterality Modality Other us Provider Scanning Final Result documented in this encounter Visit Diagnoses Not on filedocumented in this encounter Care Teams Administration Internship Relationship Specialty Start Date End Date Janeth Viramontes MD [address] [phone] PCP - General 09/16/11 documented as of this encounter
--- OUTSIDE RECORDS SUMMARY | 2025-09-23 07:58 | XMS_ITS | Patient Health Record ---
Author Organization [facility] Address [address] [place], [place] [phone] Care Team Providers Care Lumber Tailer Name Role Phone LISA BUTLER Unavailable [phone] Janeth Viramontes Unavailable Unavailable Allergies Allergen (clinical drug ingredient) Drug/Non Drug Allergy documented on EMR Reaction Allergy Type Onset Date Status cefadroxil Duricef (uncoded) Unknown Allergy 09/04/2012 active Bactroban Unknown Drug Allergy 12/13/2014 active Latex Latex Unknown Allergy 12/16/2014 active Tape Unknown Allergy Active Reason For Referral No Information Medications Medication SIG (Take, Route, Frequency, Duration) Notes Start Date End Date Status Medrol Dosepak ORAL Medrol DosepakOr iginal MedicationMedrol Dosepak *Reorder from [employer] for eRx and Interaction Alerts* 3 Active Lisinopril 10 MG Oral Tablet ORAL lisinopril 10 MG Oral TabletOriginal Medicationlisinopril 10 MG Oral Tablet *Reorder from [employer] for eRx and Interaction Alerts* 0 Active levothyroxine sodium 0.2 MG Oral Tablet ORAL levothyroxine sodium 0.2 MG Oral TabletOriginal Medicationlevothyroxine sodium 0.2 MG Oral Tablet *Reorder from [employer] for eRx and Interaction Alerts* 0 Active 12 HR ranolazine 1000 MG Extended Release Oral Tablet [Ranexa] ORAL 12 HR ranolazine 1000 MG Extended Release Oral Tablet [Ranexa]Original [id number] HR ranolazine 1000 MG Extended Release Oral [...] for eRx and Interaction Alerts* 7 Active Famotidine 20 MG Oral Tablet ORAL [...] ipratropium bromide 0.042 MG/ACTUAT Metered Dose Nasal [place] ipratropium bromide 0.042 MG/ACTUAT Metered Dose Nasal SprayOriginal Medicationipratropium bromide 0.042 MG/ACTUAT Metered Dose Nasal [place] *Reorder from [facility] [...] 10 MG/ML Topical Solution *Reorder from [facility] for eRx and Interaction Alerts* 4 Active Potassium Chloride A ctive amlodipine 10 MG Oral Tablet ORAL amlodipine 10 MG Oral TabletOriginal Medicationamlodipine 10 MG Oral Tablet *Reorder from [facility] for eRx and Interaction Alerts* 0 Active urea 400 MG/ML Topical Cream CUTANEOUS urea 400 MG/ML Topical CreamOriginal Medicationurea 400 MG/ML Topical Cream *Reorder from [facility] for eRx and Interaction Alerts* 3 Active Furosemide 40 MG Oral Tablet ORAL furosemide 40 MG Oral TabletOriginal Medicationfurosemide 40 MG Oral Tablet *[facility] and Interaction Alerts* 0 Active aspirin 81 MG Delayed Release Oral Tablet ORAL aspirin 81 MG Delayed Release Oral TabletOriginal Medicationaspirin 81 MG Delayed Release Oral Tablet *Reorder from [facility] for eRx and Interaction Alerts* 6 Active Immunizations Vaccine Route Administration Date Status Comme nts Influenza, high dose seasonal Unknown 09/09/2023 Admini stered Social History Social History Additional Details Category Social Info Options Details Migrated Social History Migrated Social History Alcohol intake : , History of tobacco use : , Smoking Status : Never smoked Vital Signs Height-cm 172.72 cm 08/12/2025 Weight-kg 83.92 kg 08/12/2025 Height 68.00 in 08/12/2025 Weight 185 lbs 08/12/2025 BMI 28.13 kg/m2 08/12/2025 Encounters Encounter Location Date Provider Diagnosis [facility] [address] [place] [id number] 08/12/2025 LISA SNOOK Tinea unguium B35.1 ; Pain in right foot M79.671 ; Pain in left foot M79.672 ; Atherosclerosis of [place] arteries of extremities with intermittent claudication, bilateral legs I70.213 and Acquired keratosis [keratoderma] palmaris et plantaris L85.1 [facility] [address] [place] [id number] 12/17/2024 LISA SNOOK Tinea unguium B35.1 ; Pain in right foot M79.671 ; Pain in left foot M79.672 ; Atherosclerosis of [place] arteries of extremities with intermittent claudication, bilateral legs I70.213 and Acquired keratosis [keratoderma] palmaris et plantaris L85.1 [facility] [address] [place] [id number] 03/18/2025 LISA SNOOK Tinea unguium B35.1 ; Pain in right foot M79.671 ; Pain in left foot M79.672 ; Atherosclerosis of [place] arteries of extremities with intermittent claudication, bilateral legs I70.213 and Acquired keratosis [keratoderma] palmaris et plantaris L85.1 [facility] [address] [place], [place] [phone] 05/27/2025 LISA SNOOK Tinea unguium B35.1 ; Pain in right toe(s) M79.674 ; Pain in left toe(s) M79.675 and Atherosclerosis of [place] arteries of extremities with intermittent claudication, bilateral [...] any subungual debris and necrotic tissue removed 05/27/2025 Pain in right toe(s) (ICD-10 - M79.674) 08/12/2025 Tinea unguium (ICD-10 - B35.1) Nails 1-5 Bilateral were debrided extensively with nail nippers and emery board, reducing length and girth to pink healthy tissue with any subungual debris and necrotic tissue removed 08/12/2025 Pain in right foot (ICD-10 - M79.671) 08/12/2025 Pain in left foot (ICD-10 - M79.672) 05/27/2025 Pain in left toe(s) (ICD-10 - M79.675) 03/18/2025 Pain in left foot (ICD-10 - M79.672) 12/17/2024 Pain in left foot (ICD-10 - M79.672) 12/17/2024 Atherosclerosis of [place] arteries of extremities with intermittent claudication, bilateral legs (ICD-10 - I70.213) 03/18/2025 Atherosclerosis of [place] arteries of extremities with intermittent claudication, bilateral legs (ICD-10 - I70.213) 05/27/2025 Atherosclerosis of [place] arteries of extremities with intermittent claudication, bilateral legs (ICD-10 - I70.213) 08/12/2025 Atherosclerosis of [place] arteries of extremities with intermittent claudication, bilateral legs (ICD-10 - I70.213) 08/12/2025 Acquired keratosis [keratoderma] palmaris et plantaris (ICD-10 - L85.1) A total of 2 corns or calluses, as described in the note above, were cut and pared utilizing a #15 blade 03/18/2025 Acquired keratosis [keratoderma] palmaris et plantaris [...] Plan Of Treatment Next Appt Details Provider Name:REMY AYALA, 10/17/2025 10:40:00 AM, [address] [place] [address], [phone], Insurance Providers Payer Name Payer Address Payer Phone Subscriber Number Group Number Insured Name Patient Relationship to Insured Coverage Start Date Coverage End Date Medicare Part B [facility] [address] [place] [phone] [id number] FREDDIE MARTÍNEZ Self - patient is the insured [facility] ([facility] ATTN CLAIMS [address] [place] [address] [id number] MAURICIO FREDDIE Self - patient is the insured
--- OUTSIDE RECORDS SUMMARY | 2025-09-23 07:58 | XMS_ITS | Clinical Summary ---
Author Organization [facility] [address] [facility] [address] Address [address] [place] [address] Care Team Providers Care Florist Helper Name Role Phone Janeth Viramontes MD Primary [...] Take by mouth. Active flaxseed oil oil Act german fluticasone propionate [...] by mouth daily Active cholecalciferol (VITAMIN D-3) 07443 unit capsule Take 1 capsule (10,000 Units total) by mouth daily Active zoledronic acid/mannitol-wa ter (RECLAST IV) Infuse into a venous catheter Infusion Active latanoprost (XALATAN) 0.005 % ophthalmic solution 01/09/20 24 Active carboxymethylcel lulose sodium (REFRESH PLUS OPHT) [...] (three) times a day 05/21/20 24 Active budesonide-formo teroL (SYMBICORT) 160-4.5 mcg/actuation inhaler Inhale 2 puffs 2 (two) times a day Rinse mouth with water after use. Do not swallow. Active nitroglycerin (NITROSTAT) 0.4 mg SL tabletIndication s:Coronary artery disease of [place] artery of [place] heart with stable angina pectoris DISSOLVE ONE [...] total) by mouth daily 05/28/20 25 Active pravastatin (PRAVACHOL) 40 mg tablet Take 1 tablet by mouth once daily 90 tablet 07/08/20 25 Active carvediloL (COREG) 25 mg tabletIndication s: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,Primary hypertension Take 1 tablet (25 mg total) by mouth 2 (two) times a day with meals 180 tablet 3 07/08/20 25 026 Active isosorbide mononitrate ER (IMDUR) 30 mg 24 hr tablet Take 3 tablets by mouth once daily 270 tablet 3 09/19/20 25 Active isosorbide mononitrate ER (IMDUR) 30 mg 24 hr tablet Take 3 tablets by mouth once daily 270 tablet 06/25/20 25 025 Discontinued Active Problems Problem Noted Date Diagnosed Date JULISSA on CPAP 09/15/2023 Localized edema 09/24/2022 Mixed hyperlipidemia 11/10/2021 QT prolongation 11/10/2021 Biliary tract disease 04/01/2020 Abdominal pain 04/01/2020 Elevated amylase 04/01/2020 Generalized abdominal pain 02/13/2020 Overview (04/01/2020): Added automatically from request for surgery [id number] Palpitations 01/09/2020 Chronic fatigue 01/09/2020 Preoperative cardiovascular examination 07/04/20 19 OWENS (dyspnea on exertion) 04/20/2018 Orthostatic hypotension 10/19/2016 Overview (02/18/2017): Orthostatic hypotension 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 (02/18/2017): Coronary vasospasm Thoracic back pain 12/29/2015 Overview (02/18/2017): Thoracic back pain, unspecified back pain laterality Coronary arteriosclerosis in [place] artery 11/04 Overview (02/18/2017): Coronary artery disease involving [place] coronary artery of [place] heart with other form of angina pectoris Left ventricular dilatation 11/04/2015 Overview (02/18/2017): LVE (left ventricular enlargement) Coronary artery disease invo lving [place] coronary artery of [place] heart with angina pectoris with documented spasm [...] Encounters Date Type Department Care Team Description 07/08/2025 11:30 AM CDT Office Visit [facility] [address] [place] [address] Umesh Telles MD 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 (Primary Dx); Primary hypertension; Mixed hyperlipidemia; JULISSA on CPAP from Last 3 Months Surgical History Surgery [...] on file 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 Gender Identity Female 05/06/2020 3:45 PM CDT Sexual Orientation Straight 01/31/2020 9: 43 AM CDT Last Filed Vital Signs Vital Sign Reading Time Taken Comments Blood Pressure 139/64 07/08/2025 12:13 PM CDT Pulse 73 07/08/2025 11:22 AM CDT Temperature 36.8 C (98.3 F) 04/02/2020 12:00 PM CDT Respiratory Rate 16 11/10/2021 9:02 AM FOREST SCIENCE PROFESSOR Oxygen Saturation 97% 07/08/2025 11:22 AM CDT Inhaled Oxygen Concentration - - Weight 94.3 kg (208 lb) 07/08/2025 11:22 AM CDT Height 167.6 cm (5' 6) 07/08/2025 11:22 AM CDT Body Mass Index 33.57 07/08/2025 11:22 AM CDT Plan of Treatment Health Maintenance Due Date Last Done Comments Hepatitis C Screening 1945 Osteoporosis Screening-Bone Density Scan 1945 DTaP/Tdap/Td Vaccine (1 - Tdap) 1958 Hepatitis B Screening 1965 Well Visit 65+ 2012 Depression Screening 02/12/2021 02/13/2020, 02/13/20 20 Fall Risk Assessment 04/02/2021 04/02/2020 Covid-19 Vaccine (4 - 2024-2 6 season) 2025 08/14/2021, 01/23/2021, 01/02/2021 Influenza Vaccine (#1) 2025 4, 07/21/2021, 07/18/2020, Additional history exists Pneumococcal vaccine 65+ Completed 021, 10/13/2015, 10/24/2012, Additional history exists Zoster Vaccine Completed 01/31/2023, 11/29/2022 Medical Devices Explanted Type Area Nuclear Logging Engineer Device Identifier Shelf Expiration Date Model / Serial / Lot [employer] [id number] Chris Flexi-Stent 7fr 3cm Small Pigtail Flexible .035in Stent - [id number] Implanted:Qty : 1 on 03/31/2020 by Ricky Jeter MD at [facility] Explanted:Qty : 1 on 04/02/2020 by Ricky Jeter MD at [facility] Stent N/A: Pancreas [employer] 09/13/2024 [id number] / / [id number] [employer]ima [id number] Carpenter Viabil 10mm 8.5fr 6cm 200cm Fully Covered Self Expand Pull - [id number] - [id number] Implanted:Qty : 1 on 03/31/2020 by Ricky Jeter MD at [facility] Explanted:Qty : 1 on 04/02/2020 by Ricky Jeter MD at [facility] Stent N/A: Bile Duct [employer] Purnima 12/20/2022 [id number] / [id number] / Insurance MEDICARE MEDICARE FORMERLY [facility] MEDICARE BLUE CROSS MEDICARE SUPPLEMENT Advance Directives For more information, please contact: [phone] * Full Code (Latest Code Status on File) Date Activated Date Inactivated Comments 03/31/2020 8:47 AM 04/02/2020 5:04 PM Care Teams Florist Helper Relationship Specialty Start Date End Date Janeth Viramontes MD [address] [id number] PCP - General 09/16/11
[2025-09-23 08:09] LABS: Hematocrit 41.4 % (35.0-42.0); Hemoglobin 13.1 g/dL (11.7-13.8); Immature Granulocyte Percent A 0.0 % (0.0-0.0); Lymphocytes Absolute Auto 1.94 K/mm3 (1.10-4.50); Mean Corpuscular HGB Conc 31.6 g/dL (32-36); Mean Corpuscular Hemoglobin 31.0 pg (27.0-31.0); Mean Corpuscular Volume 97.9 fL (78.0-102.0); Nucleated Red Blood Cells Absolute Auto 0.00 K/mm3 (0.00-0.00); Nucleated Red Blood Cells Perc 0.0 % (0-0.0); Platelet Count Result 295 K/mm3 (150-420); Red Blood Count 4.23 M/mm3 (4.20-5.40); White Blood Count 5.3 K/mm3 (4.8-10.8)
[2025-09-23 08:10] LABS: Add Urine Microscopic? NO; Appearance Urine Clear (Clear); Glucose Urine UA Negative (Negative); Leukocyte Esterase Ur Negative LEU/UL (Negative); Nitrate Urine Negative (Negative); Specific Grav Ur 1.015 (1.010-1.020)
[2025-09-23 09:20] LABS: Alanine Aminotransferase 17 U/L (6-35); Albumin Level 4.3 g/dL (3.5-5.1); Alkaline Phosphatase 73 U/L (38-126); Anion Gap 5 mmol/L (4-12); Aspartate Amino Transferase 24 U/L (14-36); Bilirubin,Total 1.2 mg/dL (0.2-1.3); Blood Urea Nitrogen 16 mg/dL (7-17); Calcium 9.5 mg/dL (8.4-10.2); Carbon Dioxide 31 mmol/L (22-30); Chloride 106 mmol/L (98-107); Cholesterol 167 mg/dL (0-200); Creatine Kinase 220 U/L (30-135); Estimated Glomerular Filt Rate > 60; Glucose 102 mg/dL (65-110); HDL Direct 71 mg/dL; Iron 119 ug/dL (37-170); Osmolality Calculated 295 mOsm/kg (285-295); Potassium 4.3 mmol/L (3.4-5.0); Sodium 142 mmol/L (137-145); Total Protein 7.0 g/dL (6.3-8.2); Triglycerides 127 mg/dL (<150)
[2025-09-23 09:27] LABS: Hemoglobin A1C 5.5 % (<5.7)
[2025-09-23 09:29] LABS: NT Pro B Type Natriuretic Pept 122 pg/mL (19.9-100)
[2025-09-23 09:37] LABS: Free T3 3.01 pg/mL (2.18-3.98); Free T4 Free Thyroxine 1.51 ng/dL (0.78-2.19)
[2025-09-23 09:50] LABS: Thyroid Stimulating Hormone 4.060 uIU/mL (0.465-4.680)
[2025-09-23 09:54] LABS: Ferritin 19.10 ng/mL (11.1-264)
[2025-09-23 10:10] LABS: Vitamin B12 > 1000.0 pg/mL (239-931)
[2025-09-25 15:09] LABS: Folate, Hemolysate 427.0 ng/mL (Not Estab.); Folate, RBC 1022 ng/mL (>498); Hematocrit 41.8 % (34.0-46.6)
== END 2025-09-23 07:52 | disposition home or self-care (01) ==
LOC: CHSLAB 07:54
PROVIDERS: PCP Internal Medicine; Visit Provider Internal Medicine
DX: E78.2 Mixed hyperlipidemia (principal); N39.0 Urinary tract infection, site not specified; E53.8 Deficiency of other specified B group vitamins; R73.01 Impaired fasting glucose; I25.10 Atherosclerotic heart disease of native coronary artery without angina pectoris; E03.4 Atrophy of thyroid (acquired); G62.9 Polyneuropathy, unspecified; I50.9 Heart failure, unspecified; I11.0 Hypertensive heart disease with heart failure
CPT/HCPCS: 36415; 80053; 80061; 81003; 82550; 82607; 82728; 82747; 83036; 83540; 83880; 84439; 84443; 84481; 85025